=== PATIENT | female | born 1940 | race Caucasian/White ===

== ENCOUNTER → 2016-11-08 | Outpatient (CLI) | payer BC ==
[~2016-11-08] MED LIST: ASPCH81X PO; ATOR10TA88 PO; BIOT1CAP8 PO; CHOL1000 PO; COEN100C7 PO; CYAN100020 PO; DOCU1CAP78 PO; LOSA100T66 PO; METO25TA3 PO; MULT-1016 PO; NTRGSL/4 SL; OMEG10007 PO; PSYL55.43 PO
--- NOTE | 2016-11-08 16:06 | DIAGNOSTIC IMAGING REPORT ---
CHEST 2 VIEWS ROUTINE CLINICAL HISTORY: COUGH dyspnea COMPARISON STUDY: 07/29/2008 FINDINGS: Prior median sternotomy. Lungs are clear. Diaphragms smooth. IMPRESSION: No acute process. Electronically signed by: Tanvir Valle M.D. 11/08/2016 4:04 PM Dictated Date/Time: 11/08/2016 4:02 PM
== END | disposition home or self-care (01) ==
LOC: C.RAD1850 15:51
PROVIDERS: ATTEND Family Medicine
DX: R05 Cough (principal); R09.89 Other specified symptoms and signs involving the circulatory and respiratory systems

== ENCOUNTER → 2017-01-01 | Outpatient (CLI) | payer BC ==
--- NOTE | 2017-01-01 16:17 | DIAGNOSTIC IMAGING REPORT ---
CHEST 2 VIEWS ROUTINE CLINICAL HISTORY: Cough COMPARISON STUDY: 11/08/2016 FINDINGS: There are postsurgical changes of midline sternotomy. The heart is normal in size. There is no failure. There is no focal pulmonary consolidation. There are no pleural effusions.[ IMPRESSION: No active disease in the chest. Electronically signed by: Sheng Ha M.D. 01/01/2017 4:16 PM Dictated Date/Time: 01/01/2017 4:15 PM
== END | disposition home or self-care (01) ==
LOC: C.RAD1850 16:03
PROVIDERS: ATTEND Family Medicine
DX: R05 Cough (principal)

== ENCOUNTER → 2017-06-03 | Outpatient (CLI) | payer BC ==
--- NOTE | 2017-06-03 12:02 | DIAGNOSTIC IMAGING REPORT ---
RIGHT HIP UNILATERAL 2 VIEWS CLINICAL HISTORY: RIGHT HIP PAIN Right COMPARISON STUDY: Right hip 06/23/2009. FINDINGS: Progressive cartilage space narrowing with jfhz-tl-[id number] articulation within the superior aspect of the right hip. There is associated subchondral sclerosis and subchondral cystic change within the right hip. This is consistent with severe osteoarthritis. There are small marginal osteophytes. No fracture or dislocation. The visualized pelvic bones are intact. IMPRESSION: Progression of the severe osteoarthritis within the right hip. No fractures. Electronically signed by: Jordan Madrigal M.D. 06/03/2017 12:01 PM Dictated Date/Time: 06/03/2017 11:49 AM
== END | disposition home or self-care (01) ==
LOC: C.RAD1850 11:27
PROVIDERS: ATTEND Family Medicine
DX: M25.551 Pain in right hip (principal)

== ENCOUNTER 2018-12-23 07:16 | Inpatient (IN) ==
--- NOTE | 2018-11-24 09:00 | PAT Medication Instructions ---
Medication Instructions Date of Service November 24, 2018 Home Medications aspirin [Aspirin Low Dose] 81 mg PO QAM biotin 1 mg PO DAILY cholecalciferol (vitamin D3) 5,000 unit PO QAM coenzyme Q10 [CoQ-10] 100 mg PO DAILY cyanocobalamin (vitamin B-12) 5,000 mcg SUBLINGUAL DAILY docusate sodium 100 mg PO BID ezetimibe [Zetia] 10 mg PO HS metoprolol succinate [Toprol XL] 12.5 mg PO HS nitroglycerin 1 dose SUBLINGUAL NEEDED omega 2-raq-qoa-fish oil [[place]-3] 1 cap PO DAILY potassium chloride 10 meq PO QAM rosuvastatin 5 mg PO HS spironolacton-hydrochlorothiaz 0.5 tab PO QAM yvbtqtkjhaqn-dhfo-vjoaq acid 1 tab PO WK Continue as directed nitroglycerin 1 dose SUBLINGUAL NEEDED vdunstnlifad-igpa-zczwc acid 1 tab PO WK ASK your prescriber and surgeon aspirin [Aspirin Low Dose] 81 mg PO QAM STOP taking 2 weeks before surgery biotin 1 mg PO DAILY coenzyme Q10 [CoQ-10] 100 mg PO DAILY omega 8-qcs-uyh-fish oil [[place]-3] 1 cap PO DAILY DO NOT take the morning of surgery cholecalciferol (vitamin D3) 5,000 unit PO QAM cyanocobalamin (vitamin B-12) 5,000 mcg SUBLINGUAL DAILY docusate sodium 100 mg PO BID potassium chloride 10 meq PO QAM spironolacton-hydrochlorothiaz 0.5 tab PO QAM Take morning of surgery NOTHING TO EAT OR DRINK AFTER MIDNIGHT Take evening before surgery docusate sodium 100 mg PO BID ezetimibe [Zetia] 10 mg PO HS metoprolol succinate [Toprol XL] 12.5 mg PO HS rosuvastatin 5 mg PO HS Other Notes If you have any questions please call us at [phone] or [phone] or [phone] or [phone]
--- NOTE | 2018-11-24 09:54 | Anesthesiology Consultation ---
Date of Service November 24, 2018 Assessment & Plan (1) Encounter for pre-operative examination: Chart Review Chart Review: Acceptable Risk for Surgery and Patient seen in Pre Admission Testing Consults Requested cardiac (Dr. Ryan (11/17/18)) Patient was seen by Dr. Ryan on 11/17/18. Dr. Ryan stated, "In light of her known history of coronary artery disease, will order a DSE for preoperative evaluation prior to her undergoing her right total hip arthroplasty." The stress echo was done 11/25 at 9:[address]am. Dr. Ryan then appended his note to say "Based on DSE results of 11/25/18 (no evidence of ischemia), this patient is an acceptable cardiac risk to undergo her planned surgical procedure." Teaching & Discussion Pre-Anesthesia Teaching/Discussion Notes: Instructed NPO after midnight before surgery, except medications with 15 cc of water. Medication instructions provided according to the PAT guidelines. History Surgery Operation Date: 12/23/18 10:40 Proposed Procedures p Right Total Hip Replacement - Amari Robertson MD Height/Weight Height: 5 ft 1 in Weight: 67.5 kg Allergies Allergy/AdvReac Type Severity Reaction Status Date / Time Penicillins Allergy Unknown A CHILD Verified 11/18/18 09:48 Medications Home Medications Medication Instructions Recorded Confirmed Last Taken aspirin [Aspirin Low Dose] 81 mg PO QAM 11/18/18 11/18/18 Unknown biotin 1 mg PO DAILY 11/18/18 11/18/18 Unknown cholecalciferol (vitamin D3) 5,000 unit PO QAM 11/18/18 11/24/18 Unknown [Vitamin D3] coenzyme Q10 [CoQ-10] 100 mg PO DAILY 11/18/18 11/18/18 Unknown cyanocobalamin (vitamin B-12) 5,000 mcg SUBLINGUAL DAILY 11/18/18 11/18/18 Unknown [Vitamin B-12] docusate sodium 100 mg PO BID 11/18/18 11/18/18 Unknown ezetimibe [Zetia] 10 mg PO HS 11/18/18 11/18/18 Unknown metoprolol succinate [Toprol XL] 12.5 mg PO HS 11/18/18 11/18/18 Unknown nitroglycerin 1 dose SUBLINGUAL UD PRN 11/18/18 11/18/18 Unknown omega 9-xgf-ett-fish oil [[place]-3] 1 cap PO DAILY 11/18/18 11/18/18 Unknown potassium chloride 10 meq PO QAM 11/18/18 11/18/18 Unknown rosuvastatin 5 mg PO HS 11/18/18 11/18/18 Unknown spironolacton-hydrochlorothiaz 0.5 tab PO QAM 11/18/18 11/18/18 Unknown llazzubimlof-duzt-metnc acid 1 tab PO WK 11/24/18 11/24/18 Unknown [Daily Multivitamin with Iron] Past Medical History Medical History CAD (coronary artery disease) Hyperlipidemia Hypertension Osteopenia Past Family History Family History Mother Family hx of colon cancer Past Surgical History Surgical History History of cardiac cath NO STENTS (PRIOR TO CABG 22 YEARS AGO) History of cataract surgery BILATERAL History of colonoscopy History of coronary artery bypass graft X2 VESSELS (22 YEARS AGO) History of dilatation and curettage History of hysterectomy VAGINAL Past Anesthesia History No Hx of Anesthesia Complications and No Family Hx of Anesthesia Complications History of PONV No (Not since they stopped using Ether.) Motion Sickness Screening History of Motion Sickness: No Social History Smoking Status: Never smoker Do You Dip or Chew Tobacco: No Hx Alcohol Use: No Hx Substance Use: No substance use type: does not use Exercise / Class Metabolic Activity II 4-5 Yardwork/Stairs/Walk up hill (Limited due to current pain. Can climb FOS. Denies CP or SOB. ) Review of Systems Patient denies chest pain, shortness of breath, dyspnea on exertion, reflux, cough, wheezing, palpitations. +joint pain (right hip, left shoulder) Physical Exam Vital Signs BP: 146/67 P: 86 R: 18 T: 98.1 SPO2: 98% on RA Constitutional anxious ENMT Thyromental Distance: < 3.5 Finger Breadths (3) Mallampati Class: II Partial on top and bottom Neck normal visual inspection and trachea midline; neck extension not limited Respiratory normal respiratory effort Auscultation: lungs clear to auscultation bilaterally Cardiovascular Rate/Rhythm: regular rate and regular rhythm Heart Sounds: no murmur Vessels: no carotid bruit Neurologic moves all extremities Psychiatric Orientation: alert and oriented x 3 Testing Electrocardiogram Date: 11/24/18 Findings: + SB @ (57) When compared with ECG of 08/12/96, nonspecific T wave abnormality, improved in anterior leads and QT has shortened. Chest X-Ray Date: 11/24/18 Findings: + NAD FINDINGS: There are median sternotomy wires and clips from bypass grafting. Mild elevation/eventration of the right hemidiaphragm is unchanged. There is no pneumothorax or evidence for pulmonary edema. There is no consolidation to suggest pneumonia. Cardiomediastinal silhouette is stable. IMPRESSION: No acute cardiopulmonary findings. Stress Test Date: 11/25/18 Type: DSE Findings: + WNL and + achieved max HR; no CP and no ischemia Resting EF: 60% Resting LV Function: normal Resting RWMA: + none Valvular Disease: MR (mild) Negative dobutamine stress echo and ECG for myocardial ischemia at 102% MPHR. Resting echo with normal biventricular systolic function. Grade I left ventricular diastolic dysfunction. Normal chamber dimensions. Trace aortic regurgitation. Mild to moderate tricuspid regurgitation. Mildly elevated estimated right ventricular systolic pressure. Laboratory Results 11/24/18 10:24 11/24/18 10:24 Blood Type O Positive 11/24/18 10:24 Antibody Screen NEGATIVE 11/24/18 10:24 PT 9.9 Seconds (9.0-12.0) 11/24/18 10:24 INR 1.0 (0.9-1.1) 11/24/18 10:24 APTT 25.5 Seconds (21.0-31.0) 11/24/18 10:24
[2018-11-24 11:29] LABS: Basophils # (auto) 0.03 K/uL (0-0.2); Basophils % (auto) 0.6 %; Eosinophils # (auto) 0.16 K/uL (0-0.5); Eosinophils % (auto) 3.3 %; Hematocrit (blood only) 38.2 % (37-47); Immature Granulocytes # (auto) 0.02 K/uL (0.00-0.02); Immature Granulocytes % (auto) 0.4 %; Lymphocytes # (auto) 1.41 K/uL (1.2-3.4); Mean Corpuscular Volume 88.2 fL (80-100); Mean Platelet Volume 10.2 fL (7.4-10.4); Monocytes # (auto) 0.53 K/uL (0.11-0.59); Monocytes % (auto) 10.9 %; Neutrophils # (auto) 2.72 K/uL (1.4-6.5); Neutrophils % (auto) 55.8 %; Platelet Count 225 K/uL (130-400); RDW Coefficient of Variation 15.3 % (11.5-14.5); RDW Standard Deviation 49.9 fL (36.4-46.3); Red Blood Count 4.33 M/uL (4.2-5.4); White Blood Count 4.87 K/uL (4.8-10.8)
--- NOTE | 2018-11-24 11:35 | XRay Report ---
XR chest Pre-admission PA/Lat CLINICAL HISTORY: Preoperative evaluation. COMPARISON STUDY: Chest radiograph January 01, 2017. FINDINGS: There are median sternotomy wires and clips from bypass grafting. Mild elevation/eventratio n of the right hemidiaphragm is unchanged. There is no pneumothorax or evidence for pulmonary edema. There is no consolidation to suggest pneumonia. Cardiomediastinal silhouette is stable. IMPRESSION: No acute cardiopulmonary findings. Electronically signed by: Ross Call M.D. 11/24/2018 11:33 AM
[2018-11-24 11:38] LABS: Partial Thromboplastin Time 25.5 Seconds (21.0-31.0); Prothrombin Time 9.9 Seconds (9.0-12.0)
[2018-11-24 12:27] LABS: BUN Creatinine Ratio 14.3 (10-20); Calcium 8.7 mg/dl (8.5-10.1); Creatinine Clr Calc Pharmacy 46.6 ml/min; Est GFR (African American) 74.5; Est GFR (Non-African American) 64.3; Potassium 4.2 mmol/L (3.5-5.1)
--- NOTE | 2018-12-19 20:46 | History and Physical Report ---
DATE OF ADMISSION: 12/23/2018 CHIEF COMPLAINT: Right hip pain. HISTORY OF PRESENT ILLNESS: The patient is a 78-year-old female who presents for surgical treatment of her right hip. She has a 1-year history of increase in right pain and discomfort that has gotten progressively worse over time. She went through a course of therapy which seemed to help initially and then things have gotten worse. She was initially treated at [facility] and then referred here. She describes mostly groin, buttock, and some thigh pain radiating down to her knee, but no further. She limps with every step. She is having difficulty walking more than a couple of blocks. She has difficulty getting through the grocery store. She has nighttime pain. She would like to proceed with surgical treatment. PAST MEDICAL HISTORY: 1. Hypertension. 2. Coronary artery disease, status post bypass grafting 20 years ago at [facility] followed by Dr. Ryan. 3. Hand numbness. 4. Osteoarthritis. PAST SURGICAL HISTORY: Include cardiac bypass surgery in 1995 without symptoms followed by Dr. Ryan. ALLERGIES: ATORVASTATIN, CLARITIN-D, CODEINE, DOXYCYCLINE, HYDROCHLOROTHIAZIDE, NIASPAN, SIMVASTATIN. CURRENT MEDICINES: Include, 1. Aspirin 81 mg. 2. Biotin. 3. Calcium citrate. 4. Carbamide peroxide solution. 5. Cholecalciferol. 6. Vitamin B12. 7. Ezetimibe 10 mg a day. 8. Hydrochlorothiazide/spironolactone half tablet a day. 9. Topical hydrocortisone. 10. Metoprolol 25 mg half tablet once a day. 11. Metronidazole topical cream. 12. Multivitamin with iron. 13. Nitroglycerin. 14. [place]-3. 15. Potassium chloride once a day. 16. Psyllium. 17. Crestor 5 mg a day. 18. Various topical meds. SOCIAL HISTORY: A 78-year-old female. Lives in [place]. She is . Rare alcohol intake. Three children. Does not smoke. FAMILY HISTORY: Significant for breast cancer. REVIEW OF SYSTEMS: Significant for previous heart history followed by Dr. Ryan. She denies any current chest pain or shortness of breath. No history of DVT or PE. No known bleeding problems. PHYSICAL EXAMINATION: GENERAL: Shows a pleasant elderly female. She comes in with her . HEENT: Benign. NECK: Supple. No lymphadenopathy. LUNGS: Clear to auscultation. HEART: Regular rate and rhythm. ABDOMEN: Soft, nontender, nondistended. EXTREMITIES: Grossly neurovascularly intact except as follows: Examination of the right hip and leg reveals the patient walks with a markedly antalgic gait. Leg lengths are pretty equal. She has pain and stiffness with any type of hip motion, particularly internal rotation. She can internally rotate to about neutral at best. External rotation to 20 degrees. Negative straight leg raise. X-RAYS: X-rays of the right hip reveal advanced right hip DJD. She has complete loss of superior joint space. She has got flattening of her femoral head and cystic change of the femoral head and acetabulum. ASSESSMENT: A 78-year-old female with a 1-year history of progressively increasing right hip pain and discomfort, unresponsive to conservative care. It is affecting her quality of life. She would like to have her right hip fixed. PLAN: We will take her to the operating room and do a right total hip replacement. The risks and benefits of this procedure were explained to the patient including, but not limited to DVT, PE, , infection, neurological injury, vascular injury, bleeding problem, pain, limited range of motion, stiffness, failure to relieve her symptoms, incomplete relief of symptoms, need for further surgery in the future, fracture, leg length inequality, nerve palsy, etc. The patient understands and desires to proceed. Informed consent was obtained. We did talk to her about taking her metoprolol the morning of surgery and stopping all supplements 10 days before. She is planning to be discharged to home with her 's assistance and home care. REYNA
[~2018-12-23 07:16] MED LIST changes: +ACETAMINOPHEN 500 MG TAB PO SCH; -ASPCH81X PO; -ATOR10TA88 PO; -BIOT1CAP8 PO; +BUPIVACAINE 0.5 % 5 MG/1 ML PF 10ML VIAL ONE; +CEFAZOLIN - ALLERGY NOTED TO ORDERED MEDICATION SCH; +CEFAZOLIN 2000MG 2,000 MG/15 ML SYR IV SCH; -CHOL1000 PO; -COEN100C7 PO; -CYAN100020 PO; -DOCU1CAP78 PO; +FAMOTIDINE 20 MG TAB PO SCH; +GABAPENTIN 300 MG PO SCH; -LOSA100T66 PO; +LR 500ML BOLUS, THEN 15ML/HR IV SCH; +LR 60ML/HR IV SCH; -METO25TA3 PO; +METOCLOPRAMIDE HCL 10 MG TABLET PO SCH; -MULT-1016 PO; -NTRGSL/4 SL; -OMEG10007 PO; -PSYL55.43 PO; +TRANEXAMIC ACID 1,000 MG **IV Pre-op IV SCH
[2018-12-23] MEDS ORDERED: HYDROmorphone INJ 1 MG/ML SYRINGE IV PRN (07:37)
[2018-12-23] MEDS ORDERED: LABETALOL HCL IV 5 MG/ML 20ML IV PRN (07:37)
[2018-12-23] MEDS ORDERED: MEPERIDINE HCL 25 MG/ML CARP IV PRN (07:37)
[2018-12-23] MEDS ORDERED: PHENYLEPHRINE 100MCG/ML 5ML SYR IV PRN (07:37)
[2018-12-23] MEDS ORDERED: ePHEDrine sulfate 50 MG/ML AMP IV PRN (07:37)
[2018-12-23] MEDS ORDERED: fentaNYL citrate 100 MCG/2 ML VIAL IV PRN (07:37)
[2018-12-23] MEDS ORDERED: ATROPINE SULFATE 0.1 MG/ML 10ML SYR IV PRN (07:37)
[2018-12-23] MEDS ORDERED: ONDANSETRON INJ 2 MG/ML 2 ML VIAL IV PRN ×2 (07:37→11:33)
[2018-12-23] MEDS ORDERED: MIDAZOLAM HCL 1 MG/ML 2ML VIAL ONE (07:52)
[2018-12-23] MEDS ORDERED: fentaNYL citrate 100 MCG/2 ML VIAL ONE (07:52)
--- NOTE | 2018-12-23 08:40 | History & Physical Bridge Note ---
Date of Service December 23, 2018 History & Physical Bridge Note I have examined the patient, reviewed the History & Physical and in the interval since the performance of the History & Physical I have noted the following changes of clinical significance: no changes noted
[2018-12-23] MEDS ORDERED: MoRPHine SULFATE PF 1 MG/ML 10 ML AMP/VIAL ONE (08:41)
[2018-12-23] MEDS ORDERED: BACITRACIN INJ 50,000 UNIT VIAL ONE (08:42)
[2018-12-23] MEDS ORDERED: BUPIVACAINE/EPINEPHRINE 0.5% MPF 1:200,000 30 ML VIAL ONE (08:42)
[2018-12-23] MEDS ORDERED: ePHEDrine sulfate 50 MG/ML SYR ONE (09:14)
[2018-12-23] MEDS ORDERED: LIDOCAINE HCL 2% 2 ML VIAL/AMP(20MG/ML) INFIL ONE (09:14)
[2018-12-23] MEDS ORDERED: PROPOFOL IV EMULSION 10 MG/ML 20 ML VIAL IV ONE (09:14)
--- NOTE | 2018-12-23 10:21 | Post Operative Brief Note ---
Immediate Post Op Note v1 Date of Surgery December 23, 2018 Pre & Post Diagnosis Operation Date: 12/23/18 08:50 Pre-Op Diagnosis: Right Hip Degenerative Joint Disease Post-Op Diagnosis: Right Hip Degenerative Joint Disease Procedure Operation Date: 12/23/18 08:50 Actual Procedures p Right Total Hip Arthroplasty, Uncemented(Right) - Amari Robertson MD Surgeon Amari Robertson MD Screening Unit Registered Nurse Jayjay, PAC Estimated Blood Loss 300 Findings Consistent with Post-Op Diagnosis Fluids 1500 cc Specimens Right Femoral Head Drains Sofia Catheter Anesthesia Type Spinal MAC Complications none Disposition Accompanied Patient To Recovery: Yes Disposition: Recovery Room
--- NOTE | 2018-12-23 10:43 | Anesthesiology Progress Note ---
Date of Service December 23, 2018 Anesthesia Post Procedure Vital Signs Vital Signs: Temp Pulse Pulse Resp BP Pulse Ox 12/23/18 10:30 74 12 130/56 L 98 12/23/18 10:20 36.5 C 79 13 111/55 L 100 12/23/18 07:55 36.7 C 74 20 162/95 H 93 Pain Intensity Right Hip: Pain Intensity: 0 Notes Mental Status: alert / awake / arousable Patient Amnestic to Procedure: Yes Nausea / Vomiting: adequately controlled Pain: adequately controlled Airway Patency, RR, SpO2: stable & adequate BP & HR: stable & adequate Hydration State: stable & adequate Neuraxial Anesthesia: was administered and sensory block is resolving Anesthetic Complications: no major complications apparent and Pt Satisfied with anesthetic care
--- NOTE | 2018-12-23 11:16 | XRay Report ---
XR hip 1V RT w pelvis CLINICAL HISTORY: 78 years-old Female presenting with IN PACU - A/P PELVIS and LATERAL HIP . TECHNIQUE: Single frontal view of the pelvis and crosstable lateral view of the right hip were obtain ed. COMPARISON: 06/03/2017. FINDINGS: There has been interval total right hip arthroplasty. Expected intra-articular and soft tissue emphys damaris. Overlying skin hannah. No malalignment. No periprosthetic fracture. Remaining visualized portio n of the pelvis intact. Left hip congruent. No advanced degenerative changes of the left hip. IMPRESSION: Expected postsurgical appearance status post total right hip arthroplasty. Electronically signed by: Eran Campbell M.D. 12/23/2018 11:15 AM
[2018-12-23] MEDS ORDERED: BISACODYL 10 MG SUPP PR PRN (11:33)
[2018-12-23] MEDS ORDERED: NITROGLYCERIN SL 0.4 MG/TAB TAB SL PRN (11:33)
[2018-12-23] MEDS ORDERED: HYDROmorphone INJ 0.5 MG/0.5 ML SYR IV PRN (11:33)
[2018-12-23] MEDS ORDERED: METOCLOPRAMIDE HCL INJ 5 MG/ML 2 ML VIAL IV PRN (11:33)
[2018-12-23] MEDS ORDERED: NALOXONE HCL 0.4 MG/1 ML VIAL/CARP IV PRN (11:33)
[2018-12-23] MEDS ORDERED: MAGNESIUM HYDROXIDE SUSP 30 ML UDC PO PRN (11:33)
[2018-12-23] MEDS ORDERED: ALUMINUM/MAGNESIUM SUSP 30 ML UDC PO PRN (11:33)
[2018-12-23] MEDS: TRAMADOL HCL 50 MG TABLET PO PRN (12:56)
--- NOTE | 2018-12-23 13:26 | Operative Report ---
DATE OF OPERATION: 12/23/2018 SURGEON: Amari Robertson MD. CRANE HOIST OR LIFT OPERATOR: ANEL Andrew. PREOPERATIVE DIAGNOSIS: Right hip degenerative joint disease. POSTOPERATIVE DIAGNOSIS: Right hip degenerative joint disease. PROCEDURE PERFORMED: Right uncemented ceramic on highly cross-linked polyethylene total hip arthroplasty. COMPLICATIONS: None. ESTIMATED BLOOD LOSS: 200 mL. FLUID REPLACEMENT: 1500 mL crystalloid fluid replacement. ANESTHESIA: Spinal. DRAINS: None. SPECIMENS: Right femoral head sent for pathology. OPERATIVE INDICATIONS: The patient is a 78-year-old female who has had several year history of increasing right hip pain and discomfort that has gotten significantly worse over the past year. She failed all conservative care. X-rays revealed advanced right hip DJD. She elected to proceed with surgical treatment. OPERATIVE FINDINGS: Revealed advanced right hip DJD. She had grade 4 ozpk-cf-dmxw disease of the femoral head and acetabulum. She had pretty significant synovitis of the hip joint capsule as well. No major osteophyte formation. She did have a significant joint effusion as well. OPERATIVE IMPLANTS: Operative implants consisted of: 1. Biomet G7 size 52 mm acetabular shell. 2. A 6.5 cancellous acetabular screws, 1 at 35 mm length and 1 at 20 mm length. 3. An apex hole eliminator. 4. Highly cross-linked polyethylene liner with a 52 mm outer diameter and 36 mm inner diameter. 5. DePuy Corail size 10 KLA femoral stem. 6. A +1.5/36 mm ceramic articular ball. OPERATIVE PROCEDURE: The patient was taken to the Operating Room, identified and placed on the operating table in supine position. All contact areas appropriately padded. IV antibiotics followed by Anesthesia team. A spinal anesthetic had been implemented in the holding area. Sofia catheter was placed in sterile fashion with the patient and placed in the left lateral decubitus position. An axillary roll was placed. Stlberg hip positioner was used for positioning. The right leg and hip were then prepped and draped in the usual sterile fashion. A posterolateral approach to the right hip was then performed through a curvilinear incision centered over the greater trochanter. Sharp dissection was carried through subcutaneous tissues down to the level of the IT band and gluteal fascia. The IT band and gluteal fascia were then incised longitudinally in line with skin incision. The underlying greater trochanteric bursa was excised. The piriformis and external rotators were tagged and taken off the posterior aspect of the hip joint capsule. Great care was taken throughout the procedure to protect the sciatic nerve at all times. Posterior capsulotomy was then performed leaving a large flap for later repair. Hip was internally rotated and dislocated. Femoral neck osteotomy cut was made with the final cut about 11 mm above the lesser trochanter. Femoral head was removed and sent for pathology. The femur was retracted anteriorly. Attention was then drawn to the acetabulum. The acetabular labrum was excised. The pulvinar fat was excised. Sequential reaming of the acetabulum was then performed beginning with size 43 and progressing up to 51. I did use a 52 reamer just to enter the acetabulum as it was a little bit narrow on the entrance. A 52 mm Biomet G7 acetabular shell was then placed in about 40 degrees of lateral opening and 20 degrees of anteversion. It was fixed with two 6.5 cancellous acetabular screws. A trial liner was placed. Attention was then drawn to the femur. The proximal femur was entered with a cookie cutter followed by canal finder. I then broached beginning with a size 8 and progressing up to 10. We got pretty good fit of the tendon. I was afraid to broach any bigger due to her osteopenic bone. We had good rotational stability. The calcar reamer was used to smoothen off the calcar. I then trialed the hip and the +1 articular ball seemed to recreate soft tissue tension appropriate and leg lengths appropriate. The hip was fully stable in full extension and external rotation, flexion to 90 degrees, internal rotation to 60+ degrees. We elected to place these implants. All trial implants were removed. An apex hole eliminator was placed. Highly cross-linked polyethylene liner was placed. A DePuy Corail size 10 KLA femoral stem was impacted in position. A +1.5/36 mm ceramic articular ball was placed. Hip was located once again found to be stable. Attention was then drawn toward closing. The wound was irrigated with copious amounts of pulsatile lavage solution. I did inject locally with 60 mL of 0.5% Marcaine with epinephrine. The posterior capsule and external rotators were repaired through drill holes in the posterior trochanter with #2 Ti-Cron suture. The IT band and gluteal fascia were then closed with #1 PDS suture in running fashion. The subcutaneous tissues were then closed with 2 layers, the deep layer #1 Vicryl sutures and subcutaneous tissue with 2-0 Dexon suture in a buried interrupted fashion. Skin was closed with skin hannah. Leg was then cleaned, dried and a sterile dressing with Xeroform, 4 x 4's, ABD pad and foam tape was applied. The patient then transferred to the Recovery Room in stable condition. The patient tolerated the procedure well with no complication. Bone and sponge counts were correct at the end of the operation. I attest to the content of the Intraoperative Record and any orders documented therein. Any exception s are noted below.
[2018-12-23] MEDS: KETOROLAC TROMETHAMINE 15 MG/ML VIAL IV SCH ×2 (14:11→20:47)
[2018-12-23] MEDS: SODIUM CHLORIDE 0.9% 1000ML 1,000 ML IV SCH (15:59)
[2018-12-23] MEDS ORDERED: TRANEXAMIC ACID 1,000 MG in 0.9 % SODIUM CHLORIDE 100 ML IV SCH (16:00)
[2018-12-23] MEDS: ACETAMINOPHEN 500 MG TAB PO SCH ×2 (16:14→22:13)
[2018-12-23] MEDS: CEFAZOLIN 1000MG 1,000 MG/7.5 ML SYR IV SCH (16:14)
[2018-12-23] MEDS: FERROUS GLUCONATE 324 MG TAB PO SCH (18:10)
[2018-12-23] MEDS: ASCORBIC ACID 500 MG TAB PO SCH (18:10)
[2018-12-23] MEDS: EZETIMIBE 10 MG TABLET PO SCH (20:42)
[2018-12-23] MEDS: METOPROLOL SUCC 25MG EXT REL TAB PO SCH (20:43)
[2018-12-23] MEDS: ASPIRIN 81 MG ECTAB PO SCH (20:45)
[2018-12-23] MEDS: DOCUSATE SODIUM 100 MG CAP PO SCH (20:46)
[2018-12-23] MEDS: SENNA 8.6 MG TAB PO SCH (20:46)
[2018-12-23] MEDS: ROSUVASTATIN CALCIUM 5 MG TAB PO SCH (20:50)
[2018-12-23] MEDS ORDERED: DOCUSATE SODIUM 100 MG CAP PO SCH (21:00)
[2018-12-24] MEDS: KETOROLAC TROMETHAMINE 15 MG/ML VIAL IV SCH ×4 (01:02→20:47)
[2018-12-24] MEDS: CEFAZOLIN 1000MG 1,000 MG/7.5 ML SYR IV SCH (01:02)
[2018-12-24] MEDS: SODIUM CHLORIDE 0.9% 1000ML 1,000 ML IV SCH (01:03)
[2018-12-24] MEDS: ACETAMINOPHEN 500 MG TAB PO SCH ×3 (05:25→22:05)
[2018-12-24 06:46] LABS: Basophils # (auto) 0.02 K/uL (0-0.2); Basophils % (auto) 0.4 %; Eosinophils # (auto) 0.18 K/uL (0-0.5); Eosinophils % (auto) 3.8 %; Hematocrit (blood only) 33.9 % (37-47); Hemoglobin 11.4 g/dL (12.0-16.0); Immature Granulocytes # (auto) 0.01 K/uL (0.00-0.02); Immature Granulocytes % (auto) 0.2 %; Lymphocytes # (auto) 0.84 K/uL (1.2-3.4); Lymphocytes % (auto) 17.9 %; Mean Corpuscular Hgb Conc 33.6 g/dL (32-36); Mean Corpuscular Volume 89.2 fL (80-100); Mean Platelet Volume 9.3 fL (7.4-10.4); Monocytes # (auto) 0.53 K/uL (0.11-0.59); Monocytes % (auto) 11.3 %; Neutrophils # (auto) 3.12 K/uL (1.4-6.5); Neutrophils % (auto) 66.4 %; Platelet Count 175 K/uL (130-400); RDW Standard Deviation 48.7 fL (36.4-46.3)
[2018-12-24 07:16] LABS: BUN Creatinine Ratio 9.6 (10-20); Creatinine Clr Calc Pharmacy 53.2 ml/min; Est GFR (African American) 87.9; Est GFR (Non-African American) 75.8; Potassium 3.8 mmol/L (3.5-5.1)
[2018-12-24] MEDS ORDERED: NON-FORMULARY MEDICATION (Coenzyme Q10 [Coq-10] 100 MG) PO SCH (09:00)
[2018-12-24] MEDS ORDERED: NON-FORMULARY MEDICATION (Biotin [Biotin] 1 MG) PO SCH (09:00)
[2018-12-24] MEDS: DOCUSATE SODIUM 100 MG CAP PO SCH ×2 (09:49→20:47)
[2018-12-24] MEDS: MULTIVITAMIN TAB PO SCH (09:49)
[2018-12-24] MEDS: CHOLECALCIFEROL 1,000 UNITS TAB PO SCH (09:49)
[2018-12-24] MEDS: POTASSIUM CHLORIDE 10 MEQ TABCR PO SCH (09:49)
[2018-12-24] MEDS: CYANOCOBALAMIN (VITAMIN B-12) 2,500 MCG TAB.SUBL SL SCH (09:50)
[2018-12-24] MEDS: ASCORBIC ACID 500 MG TAB PO SCH ×2 (09:50→16:47)
[2018-12-24] MEDS: FERROUS GLUCONATE 324 MG TAB PO SCH ×2 (09:50→16:47)
[2018-12-24] MEDS: ASPIRIN 81 MG ECTAB PO SCH ×2 (09:50→20:46)
[2018-12-24] MEDS: SPIRONOLACTONE/HCTZ 25-25 PO SCH (09:50)
--- NOTE | 2018-12-24 10:20 | Anesthesiology Progress Note ---
Date of Service December 24, 2018 Anesthesia Post Procedure Vital Signs Vital Signs: Temp Pulse Pulse Resp BP Pulse Ox 12/24/18 07:13 36.8 C 60 18 130/70 98 12/24/18 03:55 36.9 C 70 16 124/68 97 12/23/18 23:20 36.4 C L 64 16 119/61 97 12/23/18 19:43 36.6 C 66 18 135/64 100 12/23/18 15:01 36.3 C L 66 18 137/63 97 12/23/18 14:16 36.2 C L 64 16 147/65 H 96 12/23/18 14:10 63 18 124/73 97 12/23/18 13:18 64 18 138/69 95 12/23/18 12:10 66 18 138/69 99 12/23/18 11:40 36.3 C L 71 16 151/69 H 96 12/23/18 11:27 36.4 C L 88 15 138/65 99 12/23/18 11:00 73 18 138/60 98 12/23/18 10:50 73 12 129/60 98 12/23/18 10:40 37.0 C 74 14 128/59 L 97 12/23/18 10:30 74 12 130/56 L 98 Pain Intensity Right Hip: Pain Intensity: 3 Notes Mental Status: alert / awake / arousable Nausea / Vomiting: adequately controlled Pain: adequately controlled Airway Patency, RR, SpO2: stable & adequate BP & HR: stable & adequate Hydration State: stable & adequate Neuraxial Anesthesia: was administered and sensory block resolved Anesthetic Complications: no major complications apparent and Pt Satisfied with anesthetic care
--- NOTE | 2018-12-24 15:35 | Progress Note ---
DATE: 12/24/2018 SUBJECTIVE: 78-year-old white female postop day 1 from a right hip replacement. She is doing pretty well. Pain is controlled. Denies any chest pain or shortness of breath. Not feeling dizzy or lightheaded. OBJECTIVE: VITAL SIGNS: Temperature 36.5. Vital signs stable. PHYSICAL EXAMINATION: GENERAL: Pleasant elderly female. She is sitting up in her bedside chair, looks pretty comfortable. LUNGS: Clear to auscultation. HEART: Regular rate and rhythm. ABDOMEN: Soft, nontender, nondistended. EXTREMITIES: Grossly neurovascularly intact except as follows. Examination of the right lower extremity reveals the dressing to be clean, dry and intact. Leg lengths were equal. Thigh is soft and supple. Hip is located. She is neurologically intact. She can dorsiflex and plantarflex her foot appropriately. LABORATORY DATA: Hemoglobin 11.4. Hematocrit 33.9. Electrolytes are stable. ASSESSMENT: 78-year-old white female postop day 1 from right hip replacement, doing pretty well. Pain is controlled. Hip is located. She is neurologically intact. PLAN: 1. DVT prophylaxis including thigh-high TEDs, SCDs, and aspirin twice a day. 2. PT/OT. Weight bear as tolerated. Right total hip protocol. 3. Pain control, doing well with current pain regimen. 4. Disposition: Plan to discharge to home with some home health once adequately recovered.
[2018-12-24] MEDS: TRAMADOL HCL 50 MG TABLET PO PRN (16:45)
[2018-12-24] MEDS: ROSUVASTATIN CALCIUM 5 MG TAB PO SCH (20:45)
[2018-12-24] MEDS: SENNA 8.6 MG TAB PO SCH (20:46)
[2018-12-24] MEDS: EZETIMIBE 10 MG TABLET PO SCH (20:48)
[2018-12-24] MEDS: METOPROLOL SUCC 25MG EXT REL TAB PO SCH (20:48)
[2018-12-25] MEDS: KETOROLAC TROMETHAMINE 15 MG/ML VIAL IV SCH ×2 (02:18→08:09)
[2018-12-25] MEDS: ACETAMINOPHEN 500 MG TAB PO SCH ×2 (05:57→13:09)
--- NOTE | 2018-12-25 08:00 | Progress Note ---
DATE: 12/25/2018 SUBJECTIVE: A 78-year-old female postop day 2 from right hip replacement. She is doing well. Pain has been very well controlled. Got a good night's sleep. No chest pain or shortness of breath. Not feeling dizzy or lightheaded. OBJECTIVE: VITAL SIGNS: Temperature 37.0. Vital signs stable. PHYSICAL EXAMINATION: GENERAL: Reveals a pleasant elderly female. She is lying in bed and looks comfortable. EXTREMITIES: Examination of the right hip reveals the dressing to be clean, dry and intact. Thigh is soft and supple. There is no drainage. Hip is located. She is neurologically intact. ASSESSMENT: A 78-year-old female postop day 2 from right hip replacement, doing well. Pain is controlled. Hip is located. PLAN: 1. DVT prophylaxis including thigh-high TEDs, SCDs, and aspirin twice a day. 2. PT/OT. Weight bear as tolerated. Right total hip protocol. 3. Pain control, doing well with current pain regimen. 4. Disposition: Plan to discharge to home with some home health later today.
[2018-12-25] MEDS: CHOLECALCIFEROL 1,000 UNITS TAB PO SCH (08:10)
[2018-12-25] MEDS: MULTIVITAMIN TAB PO SCH (08:10)
[2018-12-25] MEDS: POTASSIUM CHLORIDE 10 MEQ TABCR PO SCH (08:10)
[2018-12-25] MEDS: DOCUSATE SODIUM 100 MG CAP PO SCH (08:10)
[2018-12-25] MEDS: FERROUS GLUCONATE 324 MG TAB PO SCH (08:10)
[2018-12-25] MEDS: SPIRONOLACTONE/HCTZ 25-25 PO SCH (08:11)
[2018-12-25] MEDS: CYANOCOBALAMIN (VITAMIN B-12) 2,500 MCG TAB.SUBL SL SCH (08:11)
[2018-12-25] MEDS: ASPIRIN 81 MG ECTAB PO SCH (08:11)
[2018-12-25] MEDS: ASCORBIC ACID 500 MG TAB PO SCH (08:12)
[2018-12-25] MEDS: TRAMADOL HCL 50 MG TABLET PO PRN (13:09)
--- NOTE | 2018-12-27 03:53 | Discharge Summary ---
ADMITTING PHYSICIAN AND SURGEON: Amari Robertson MD ADMITTING DIAGNOSIS: Right hip degenerative joint disease. SURGERY PERFORMED: Right total hip arthroplasty. SECONDARY DIAGNOSES: Hypertension, coronary artery disease, hand numbness, osteoarthritis. CONSULTATIONS: None obtained. HISTORY AND PHYSICAL EXAMINATION: Well documented in the patient's chart. HOSPITAL COURSE: The patient was admitted on 12/23/2018, underwent total hip arthroplasty, tolerated the procedure well. There were no complications. She was transferred to the PACU postoperatively and later to the orthopedic floor for further care. She was given Ancef for antibiotic prophylaxis, RADHA stockings, SCDs, and aspirin for DVT prophylaxis. Hemoglobin, hematocrit, and vital signs were monitored during hospital stay and remained stable. She had some postoperative anemia, did not require any blood transfusions. There were no complications. By postoperative day 2, she was tolerating a regular diet. Pain was controlled with oral pain medicine. She was participating in physical therapy. On postop day 2, she was discharged home, set up with home health services. She was given printed discharge instructions including new prescriptions for Extra Strength Tylenol, aspirin and tramadol. Continue her home medications with the exception of her home dose of aspirin which was changed. Continue physical therapy, weightbearing as tolerated, RADHA stockings, total hip precautions. Follow up in approximately 2 weeks postoperatively or sooner if there are any problems or concerns.
[2018-12-28] MEDS ORDERED: CEROVITE ADV FORMULA TAB PO SCH (09:00)
== END 2018-12-25 13:30 | disposition home health service (06) | DRG 470 ==
LOC: ASU 07:16 → 3E 11:22

== ENCOUNTER 2022-07-30 01:06 | Inpatient (IN) ==
[2022-07-30] MEDS ORDERED: fentaNYL citrate 100 MCG/2 ML VIAL ONE (01:16)
[2022-07-30] MEDS ORDERED: niCARdipine HCL INJ 2.5 MG/ML 10 ML AMP ONE (01:16)
[2022-07-30] MEDS ORDERED: HEPARIN (PORCINE) 1000 UNIT/ML 10 ML (CATH LAB USE ONLY) ONE (01:16)
[2022-07-30] MEDS ORDERED: MIDAZOLAM HCL 1 MG/ML 2ML VIAL ONE ×2 (01:16→02:58)
[2022-07-30] MEDS ORDERED: NITROGLYCERIN/D5W 100MCG/ML 20ML SYR ONE (01:17)
[2022-07-30 01:23] LABS: Basophils # (auto) 0.05 K/uL (0-0.2); Basophils % (auto) 0.9 %; Eosinophils # (auto) 0.13 K/uL (0-0.50); Eosinophils % (auto) 2.3 %; Hemoglobin 12.8 g/dl (12.0-16.0); Immature Granulocytes # (auto) 0.01 K/uL (0.00-0.02); Immature Granulocytes % (auto) 0.2 %; Lymphocytes # (auto) 2.06 K/uL (1.2-3.4); Lymphocytes % (auto) 37.2 %; Mean Corpuscular Hemoglobin 29.4 pg (25.0-34.0); Mean Corpuscular Hgb Conc 33.7 g/dL (32.0-36.0); Mean Corpuscular Volume 87.4 fL (80.0-100.0); Mean Platelet Volume 10.7 fL (9.4-12.3); Monocytes # (auto) 0.42 K/uL (0.24-0.82); Monocytes % (auto) 7.6 %; Neutrophils # (auto) 2.87 K/uL (1.4-6.5); Neutrophils % (auto) 51.8 %; Platelet Count 184 K/uL (130-400); RDW Coefficient of Variation 15.2 % (11.5-14.5); RDW Standard Deviation 48.7 fL (36.4-46.3); Red Blood Count 4.35 M/uL (3.93-5.22); White Blood Count 5.54 K/ul (4.8-10.8)
[2022-07-30] MEDS ORDERED: ONDANSETRON INJ 2 MG/ML 2 ML VIAL ONE ×2 (01:23→02:07)
--- NOTE | 2022-07-30 01:30 | Emergency Department Note ---
History of Present Illness General Chief complaint: Heart Alert Source: patient, EMS, RN notes reviewed and old records reviewed Mode of arrival: EMS Limitations: no limitations History of Present Illness This patient is a 81-year-old female who comes in after having chest pain that was 5 out of 10. They called EMS EMS called me and I took medical command it was clear that her EKG was abnormal distant with a STEMI. She had acute ST seg ment elevations inferiorly and laterally as well as reciprocal changes. I called a heart alert well before the patient even got to the hospital to help expedite the care. Upon arrival the patient says her pain was feeling better but she is just felt weird. She did receive aspirin 324 prior to arrival she took 2 of her own nitroglycerin and they gave her 1 nitro prior to calling me. Given the concern for inferior CT I told him to not give any more nitro but rather fluids. The patient denies any allergies she has had a CABG in the past and is followed by Dr. Ryan. She feels mildly sweaty. No trauma or injury Home Medications Medication Instructions Recorded Confirmed Type biotin 1 mg capsule 1 mg PO DAILY 11/18/18 07/16/22 History cholecalciferol (vitamin D3) 125 5,000 unit PO QAM 11/18/18 07/16/22 History mcg (5,000 unit) tablet (Vitamin D3) coenzyme Q10 100 mg capsule 100 mg PO DAILY 11/18/18 07/16/22 History (CoQ-10) cyanocobalamin (vitamin B-12) 5,000 mcg sublingual DAILY 11/18/18 07/16/22 History 5,000 mcg/mL sublingual drops (Vitamin B-12) omega 3 350 mg-dha 235 mg-epa 90 1 cap PO DAILY 11/18/18 07/16/22 History mg-fish oil 597 mg capsule,delay rel ([place]-3) multivitamin-ferrous 1 tab PO WK 11/24/18 07/16/22 History fumarate-folic acid 18 mg-400 mcg tablet (Daily Multivitamin with Iron) alendronate 70 mg tablet 70 mg PO Q7D 12/30/19 07/16/22 History aspirin 81 mg tablet,delayed 81 mg PO DAILY 12/30/19 07/16/22 History release amoxicillin 500 mg tablet 2,000 mg PO ONCE #20 tabs 06/13/20 07/16/22 Rx spironolactone 25 0.5 tab PO QAM #45 tabs 07/04/20 07/16/22 Rx mg-hydrochlorothiazide 25 mg tablet nitroglycerin 0.4 mg sublingual 0.4 mg sublingual Q5M PRN chest 07/17/21 07/16/22 Rx tablet pain #25 tabs metoprolol succinate 25 mg 12.5 mg PO HS #45 tabs 12/18/21 07/16/22 Rx tablet,extended release 24 hr (Toprol XL) potassium chloride 10 mEq 10 meq PO BID #180 tabs 01/31/22 07/16/22 Rx tablet,extended release rosuvastatin 5 mg tablet 5 mg PO .COMPLEX #60 tabs 07/16/22 07/16/22 Rx ezetimibe 10 mg tablet 10 mg PO DAILY #90 tabs 07/25/22 Rx Allergies Allergy/AdvReac Type Severity Reaction Status Date / Time No Known Drug Allergies Allergy Verified 07/16/22 10:47 Past Med/Surg History Medical History (Updated 07/30/22 @ 01:30 by Roman Christian MD) Antiplatelet or antithrombotic long-term use CAD (coronary artery disease) Encounter for pre-operative examination Hyperlipidemia Hypertension Osteopenia Surgical History (Updated 07/30/22 @ 01:30 by Roman Christian MD) History of cardiac cath NO STENTS (PRIOR TO CABG 22 YEARS AGO) History of cataract surgery BILATERAL History of colonoscopy History of coronary artery bypass graft X2 VESSELS (22 YEARS AGO) History of dilatation and curettage History of hysterectomy VAGINAL History of lumpectomy of right breast History of right hip replacement Family History Mother Family hx of colon cancer Social History Smoking Status: Never smoker Second Hand Exposure: No; Hx Alcohol Use: No Hx Substance Use: No Preferred Language: Indonesian Communication Ability: Effective Manager Money Required: No Beliefs That Will Affect Care: None marital status: Current Living Situation: Spouse Feels Safe at Home: Yes Assistive Devices: Glasses and Walker Review of Systems A total of 10 systems reviewed and were otherwise negative Physical Exam Vital Signs Vital Signs - 24 hr 07/30/22 01:09 07/30/22 01:09 07/30/22 01:15 Temperature 37 C Temperature Source Oral Pulse Rate 43 L Pulse Rate [Finger] Respiratory Rate 16 Respiratory Effort / Characteristics Short of Breath SOB on Exertion Respiratory Depth Normal Blood Pressure 89/53 L Blood Pressure [Right Arm] Blood Pressure Mean 65 Blood Pressure Mean [Right Arm] Pulse Oximetry 98 96 Oxygen Delivery Method Nasal Cannula Room Air Oxygen Flow Rate 3 3 Sepsis Recent Fever Within 48 Hours No Sepsis New/Unexplained Change in Mental Status N/A Sepsis Action Taken by Nursing No Action Required 07/30/22 01:16 07/30/22 01:15 Temperature Temperature Source Pulse Rate Pulse Rate [Finger] 57 L Respiratory Rate 20 Respiratory Effort / Characteristics Respiratory Depth Blood Pressure Blood Pressure [Right Arm] 77/47 L Blood Pressure Mean Blood Pressure Mean [Right Arm] 57 Pulse Oximetry 96 97 Oxygen Delivery Method Nasal Cannula Nasal Cannula Oxygen Flow Rate 3 3 Sepsis Recent Fever Within 48 Hours Sepsis New/Unexplained Change in Mental Status Sepsis Action Taken by Nursing General: Well developed well nourished older female who appears mildly diaphoretic and pale but in no acute distress, breathing comfortably on room air. Normal speech HEENT: Normal cephalic atraumatic. Pupils are equal round and reactive to light. Sclera are anicteric. Extraocular movements are intact. Oropharynx is pink with moist mucous membranes. No swelling of the mouth lips or tongue. Neck: Supple with a midline trachea. No meningeal signs or stiffness, no JVD or bruits. No Stridor. Chest: Clear to auscultation bilaterally. No wheezes or rhonchi. No increased work of breathing. Heart: Regular rate and rhythm without murmurs or gallops. Abdomen: Soft nontender, nondistended without rebound guarding or rigidity. Extremities: No cyanosis clubbing or edema. No calf tenderness or assymetry Spine/Back. Non tender to palpation. No CVA tenderness Skin: Good turgor without rashes. Neurologic exam: Cranial nerves two through 12 are intact. Motor and sensation are intact and symmetrical throughout. Critical Care Time Critical Care Time: Yes Total Critical Care Time: 30 Due to the patient's acute STEMI, need for emergent rapid angioplasty, discussion with the paramedics cardiology and given ALS medical command as well as need for aggressive, timely care with IV fluids and meds, I have personally spent greater than 30 minutes of critical care time in the direct management of this patient. This includes bedside care, interpretation of diagnostic studies, and testing, discussion with consultants, patient, and family members, and other required patient management activities. This 30 minutes is in excess of all separately billable procedures. Medical Decision Making Differential Diagnosis Acute CT, arrhythmia, vasospasm, anemia, electrolyte or metabolic abnormality, aortic disease Medical Records Attestation: I reviewed the patient's medical records. Home Medications Current Medication List: was personally reviewed by me Laboratory Data Attestation: I reviewed the patient's lab results. Result diagrams: 07/30/22 01:12 07/30/22 01:12 Lab Results 07/30/22 Range/Units 01:12 WBC 5.54 (4.8-10.8) K/ul RBC 4.35 (3.93-5.22) M/uL Hgb 12.8 (12.0-16.0) g/dl Hct 38.0 (34.1-44.9) % MCV 87.4 (80.0-100.0) fL MCH 29.4 (25.0-34.0) pg MCHC 33.7 (32.0-36.0) g/dL RDW Std Deviation 48.7 H (36.4-46.3) fL RDW Coeff of Randell 15.2 H (11.5-14.5) % Plt Count 184 (130-400) K/uL MPV 10.7 (9.4-12.3) fL Immature Gran % (Auto) 0.2 % Neut % (Auto) 51.8 % Lymph % (Auto) 37.2 % [place] % (Auto) 7.6 % Eos % (Auto) 2.3 % Baso % (Auto) 0.9 % Neut # (Auto) 2.87 (1.4-6.5) K/uL Lymph # (Auto) 2.06 (1.2-3.4) K/uL [place] # (Auto) 0.42 (0.24-0.82) K/uL Eos # (Auto) 0.13 (0-0.50) K/uL Baso # (Auto) 0.05 (0-0.2) K/uL Immature Gran # (Auto) 0.01 (0.00-0.02) K/uL Imaging Data Attestation: I personally reviewed and interpreted this imaging study as follows: My Impression: Chest x-rayno acute infiltrate, failure, pneumothorax seen. There are some cardiomegaly. There is some calcification seen in the aorta but does not appear to be widened. ECG Data Attestation: I personally reviewed and interpreted this ECG as follows: Indication: + chest pain Rate (beats per minute): 50 Rhythm: + sinus bradycardia ECG [place]: + Normal ECG ST segments: + ST depression (Anterior) and + ST elevation (Anterolateral) ECG Findings: no PACs or no PVCs Comparison ECG Date: from (11/24/18) Change: the following changes noted (Findings consistent with acute STEMI are now present) MDM Narrative This patient comes in as described above. I did take ALS medical command and her EKG was very consistent with acute STEMI therefore I called heart alert immediately to expedite her care I saw her immediately upon arrival we had 2 large-bore IVs established her airway is stable we kept her on oxygen her blood pressure was initially in the 90s it did drop into the 70s we did open the IV fluids to give her preload. She does not appear to be in heart block but she is on the bradycardic side at times. Chest x-ray does not show any definite congestive heart failure. Labs are pending Dr. Valles did arrive and is going to take her to the [facility] for emergent angioplasty/cath. I talked to the douglas lomas at length and he also was able to see his prior to the [facility]. She was sent emergently to the [facility]. Continuous cardiac monitoring: Orders placed in EMR for continuous cardiac monitoring. Upon my interpretation patient noted to be in sinus bradycardia with a rate of [address] changes Impression & Plan Acute CT, History of coronary artery bypass graft, Chest pain, Acute hypotension Discharge Plan Visit Data Chief Complaint: Heart Alert ED Provider: Roman Christian Discharge Problem: Acute CT, History of coronary artery bypass graft, Chest pain, Acute hypotension Patient Disposition: Admitted As Inpatient Discharge Instructions Interventions: ED Discharge Assessment Last Done: 07/30/22 01:24 : Acute CT Qualifiers: Myocardial infarction type: ST elevation myocardial infarction Involved coronary artery: unspecified coronary artery Qualified Code(s): I21.3 - ST elevation (STEMI) myocardial infarction of unspecified site Chest pain Qualifiers: Chest pain type: precordial pain Qualified Code(s): R07.2 - Precordial pain
[2022-07-30 01:35] LABS: Partial Thromboplastin Ratio 0.8; Partial Thromboplastin Time 21.7 Seconds (21.0-31.0); Prothrombin Time 10.6 Seconds (9.0-12.0)
[2022-07-30] MEDS ORDERED: PHENYLEPHRINE HCL INJ 10 MG/ML VIAL (CATH LAB USE ONLY) ONE (01:39)
[2022-07-30] MEDS ORDERED: NOREPINEPHRINE BITARTRATE 1 MG/ML 4 ML VIAL (CATH LAB USE ONLY) ONE (01:39)
[2022-07-30] MEDS ORDERED: EPTIFIBATIDE 2 MG/ML 10 ML VIAL (CATH LAB USE ONLY) IV ONE (01:43)
[2022-07-30] MEDS ORDERED: EPTIFIBATIDE 0.75 MG/ML 75MG VIAL (CATH LAB USE ONLY) ONE (01:44)
[2022-07-30 01:54] LABS: Troponin I High Sensitivity 21.1 pg/ml (0-14)
[2022-07-30 01:59] LABS: Alanine Aminotransferase 17 U/L (7-52); Albumin Globulin Ratio 1.3 (0.9-2); Albumin Level 3.8 gm/dl (3.4-5.0); Alkaline Phosphatase 40 U/L (34-104); Anion Gap 10 (3-11); Aspartate Aminotransferase 18 U/L (13-39); BUN Creatinine Ratio 18.3 (10-20); Bilirubin,Total 0.9 mg/dl (0.2-1.0); Blood Urea Nitrogen 21 mg/dl (6-23); Calcium 8.6 mg/dl (8.5-10.1); Carbon Dioxide 23 mmol/L (21-32); Chloride 105 mmol/L (98-107); Est GFR (African American) 51.3 ml/min; Est GFR (Non-African American) 44.3 ml/min; Globulin 2.9 gm/dl (2.5-4.0); Glucose 160 mg/dl (70-99(Fasting)); Lipase 32 U/L (11-82); Potassium 3.1 mmol/L (3.5-5.1); Sodium 138 mmol/L (136-145); Total Protein 6.7 gm/dl (6.0-8.3)
[2022-07-30] MEDS ORDERED: DOPamine 400MG / 250ML D5W (Cath Lab Use ONLY) ONE (01:59)
[2022-07-30] MEDS ORDERED: FUROSEMIDE 40 MG/4 ML VIAL IV ONE (02:25)
[2022-07-30] MEDS ORDERED: RAPID SEQUENCE INDUCTION BAG ONE (02:26)
[2022-07-30] MEDS ORDERED: HEPARIN 25000 UNIT/500 ML D5W IV ONE (02:44)
[2022-07-30] MEDS ORDERED: CLOPIDOGREL BISULFATE 300 MG TAB ONE (02:55)
[2022-07-30] MEDS ORDERED: STAT IV Infusion **Titration per Protocol STA ×6 (03:04→13:56)
[2022-07-30] MEDS ORDERED: EPTIFIBATIDE BOLUS/DRIP IV STA (03:04)
[2022-07-30] MEDS ORDERED: ICU PROTOCOL FOR HYPERGLYCEMIA PRN (03:09)
[2022-07-30] MEDS ORDERED: EPTIFIBATIDE 75 MG/100 ML VIAL IV SCH (03:15)
[2022-07-30] MEDS ORDERED: fentaNYL citrate 2,500 MCG/250 ML BAG IV ONE (03:18)
[2022-07-30] MEDS ORDERED: MIDAZOLAM HCL 125MG/250ML D5W ONE (03:18)
--- NOTE | 2022-07-30 03:18 | Pre Anesthesia Assessment ---
Date of Service July 30, 2022 Pre Sedation Assessment Vital Signs Temp Pulse Pulse Resp BP BP Pulse Ox 07/30/22 01:15 57 L 20 77/47 L 97 07/30/22 01:16 96 07/30/22 01:15 96 07/30/22 01:09 37 C 43 L 16 89/53 L 98 O2 Del Method O2 Flow Rate 07/30/22 01:15 Nasal Cannula 3 07/30/22 01:16 Nasal Cannula 3 07/30/22 01:15 Room Air 3 07/30/22 01:09 Nasal Cannula 3 Cardiovascular Additional Comments: bradycardia Respiratory normal respiratory effort, lungs clear to auscultation Pre-Sedation Airway Assessment Smoking Status: Never smoker Notes The planned sedation has been discussed with the patient. Informed Consent was obtained. I have identified the patient, determined the appropriateness of sedation and have assessed the patient immediately prior to the procedure. All medicine(s) and interventions are by my order.
--- NOTE | 2022-07-30 03:20 | Post Anesthesia Assessment ---
Date of Service July 30, 2022 Post Sedation Assessment Vital Signs Temp Pulse Pulse Resp BP BP Pulse Ox 07/30/22 01:15 57 L 20 77/47 L 97 07/30/22 01:16 96 07/30/22 01:15 96 07/30/22 01:09 37 C 43 L 16 89/53 L 98 O2 Del Method O2 Flow Rate 07/30/22 01:15 Nasal Cannula 3 07/30/22 01:16 Nasal Cannula 3 07/30/22 01:15 Room Air 3 07/30/22 01:09 Nasal Cannula 3 Recovery Score Activity: Moves 0 extremities Respiration: Dyspnea/Limited Breathing (intubated) Circulation: +/-20-49% PreAnes Value Consciousness: Nonresponsive Oxygen Saturation: <90% w/ supp O2 Discharge Sedation Level of Care: Higher Level of Care Post Sedation Plan On clinical assessment, the patient appears to have tolerated the sedation without complications. Patient is recovering as anticipated. Patient will continue to be monitored by nursing and may be discharged when sedation discharge criteria are met per below protocol. Upon Completions of procedure up to 15 minutes continue every 5 minute vital signs and the P.A.R. score; then discharge to a Phase I or Fast Track to Phase II per the following guidelines: * Discharge Patient to appropriate Phase II area if PAR is 8 or greater or return to pre- procedure baseline. The post - procedure orders will be as directed. * If PAR score is less than 8 or not return to pre-procedure baseline then patient will follow Phase I monitoring till PAR is reached for Phase II. The Phase I may be done in procedure room or may call to secure a Phase I area. * If naloxone or flumazenil are used for reversal, hold in Phase I for continued monitoring from when last reversal dose was given for a minimum of 60 minutes or longer pending the nurse and/or physician discretion of patient condition before discharge to Phase II. Please call the Sedation Physician to re-evaluate and complete post-note for discharge to Phase II area. Do NOT discharge from procedure sedation or Phase 1 until post- sedation evaluation note is complete by procedure /sedation MD Sedation Discharge Instructions to be given to the patient at discharge to home. [facility] Procedure Codes (Charges) Sedation/Anesthesia Procedure 1: Sedation/Anesthesia: 02873 Mod Sedation by the same physician;Init15 Min Child Age 5 & Up Procedure 2: Sedation/Anesthesia: 62707 Mod Sedation by the same physician; Ea [id number] Minutes
--- NOTE | 2022-07-30 03:26 | Cardiac Catheterization ---
[facility] Data: [facility] Cardiac Status Clinical evaluation leading to the procedure CAD Presenation: STEMI (Inferior) Anginal Classification: CCS IV Heart Failure: No Cardiogenic Shock within 24 Hours: Yes Cardiac Arrest within 24 Hours: No STEMI OR Non-STEMI Symptom Onset Date: 07/29/22 Symptom Onset Time: 21:00 Thrombolytics: No Coronary Anatomy Left Main (% Stenosis): Normal LAD (% Stenosis): Ostial (100% chronic total occlusion) Circumflex (% Stenosis): Normal OM1 (% Stenosis): Normal L PL1 (% Stenosis): Normal RCA (% Stenosis): Mid (100% acute thrombotic stenosis) Grafts - LAD (%): Normal (Patent but atretic) Grafts - Ramus (%): Normal Diagnostic Physicians Name: Amari Valles MD, PhD Closure Device Percutaneous Entry Location: Femoral Recommendations: PCI without planned CABG and Management Recommendatons (Intra- aortic balloon pump, transvenous pacer, ICU admission.) PCI Indication: Immediate PCI for STEMI First Noted: First EKG Reason For Delay in PCI:: Hemodynamically unstable bradycardia Lesion Segment Name: Mid RCA Culprit Artery: Yes Stenosis Prior to Rx (%): 100% Chronic Total Occlusion: No Pre-Procedure JOAN Flow: 0 Previously Treated Lesion: No Lesion Complexity: Non-High/Non-C Lesion Length (mm): 10 mm Thrombus Present: Yes Bifurcation Lesion: No Guidewire Across Lesion: Yes Intraprocedure Events Significant Disection: No Perforation: No Cardiac Cath Procedure Full Procedure Date July 30, 2022 Pre-Procedure Diagnosis Pre-Procedure Diagnosis: STEMI (inferior, bradycardia) AUC Score AUC Score: 09 Post-Procedure Diagnosis Post-Procedure Diagnosis: Severe CAD (Cardiogenic shock, hemodynamically unstable bradycardia, hypoxia) Procedure(s) Performed Procedure(s) Performed: Coronary Angiography, Drug Eluting Stent, Temporary Pacemaker, IABP, Ultrasound Guided Vascular Access and Bypass Graft Angiography Cement Handler Amari Valles MD, PhD Estimated Blood Loss Estimated Blood Loss: 30 ml Medication(s) Medication(s): Aspirin, Clopidogrel, Fentanyl, Heparin, Integrilin, Lidocaine 1%, Adalberto-Synephrine, Nicardipine, Nitroglycerin and Versed Summary of Findings Brief description: Patient was brought to the cardiac catheterization suite where she was shaved and prepped in a sterile fashion. She was unresponsive with a low heart rate. Transcutaneous pacing was initiated. She then regained consciousness. We moved immediately to the access. Soft tissues of the right groin were anesthetized using 10 mL of 1% Xylocaine. Using ultrasound for guidance (image saved) the right femoral artery was accessed and a 6 [place] femoral artery sheath was placed. Again, using the ultrasound for guidance the right femoral vein was accessed and a 7 [place] femoral venous sheath was placed. A transvenous pacing wire was inserted through the venous sheath and then the balloon was inflated. Under fluoroscopic guidance the pacing wire was advanced to the RV and pacing was initiated at 100 bpm and 10 mA. This was then reduced to 80 bpm and 8 mA. We moved immediately to coronary angiography. Left coronary angiography was performed in orthogonal views with a 5 [place] JL 4 diagnostic catheter. Right coronary angiography was performed in orthogonal views with a 6 [place] JR4 guide catheter. Patient was provided IV heparin to undergo coronary intervention. ACT was checked intermittently and additional heparin provided as needed to maintain therapeutic ACT. A BMW reversal guidewire was advanced through the 6 [place] JR4 guide catheter and positioned distally in the RCA. Over this, a 2.5 x 12 mm balloon was advanced and inflated across the lesion. Balloon was deflated and flow was restored. Patient was started on Integrilin drip after double bolus administration. A guide liner was advanced over the wire, then a 3.0 x 12 mm Weston drug-eluting stent was then advanced and positioned across the lesion. This was deployed at 18 mounika. Stent balloon was removed and a 3.25 x 8 Euphora noncompliant balloon was advanced and positioned within the stent. The stent was then postdilated to 17 mounika proximally and 10 mounika distally. The balloon was removed after deflation. The dilator was removed. Coronary angiography was performed. The guidewire was removed and final angiographic evaluation was performed in orthogonal views. We then removed the guide catheter and completed the diagnostic portion of the study using a 5 [place] ASHTYN catheter for HANKS angiography in orthogonal views and a 5 [place] JR4 diagnostic catheter for SVG angiography in orthogonal views. All diagnostic catheters were removed. The patient had significant distress including hypotension requiring Adalberto- Synephrine bolus and dopamine drip. She had a lot of vomiting and likely aspiration. Fortunately, her heart rate responded to revascularization and dopamine drip and she was therefore only intermittently requiring transvenous pacing. We decided to provide hemodynamic support with intra-aortic balloon pump counterpulsation. The 6 [place] femoral artery sheath was exchanged for the 7.5 [place] balloon pump sheath over the wire. Then, 7.5 [place] Mike 40 cc intra-aortic balloon pump was advanced through the sheath and under fluoroscopic guidance over the wire was positioned in the descending thoracic aorta with the tip at the estee. After connecting the balloon pump catheter to the balloon pump and flushing all appropriate lines we initiated intra-aortic balloon pump at one-to-one ratio. Augmented pressure was over 120. The balloon pump was then sutured in place. The transvenous pacer was sutured in place. The right femoral access site was then dressed appropriately. Patient continued with significant hypoxia likely secondary to aspiration. We therefore requested intubation be performed by the emergency room physician. (See her note). Patient had received aspirin prior to arrival in the [facility]. We provided her with 600 mg of Plavix. She was subsequently admitted to the intensive care unit for further management. Coronary angiography: Left main trunk: Large caliber. Bifurcates into LAD and left circumflex. No apparent disease LAD: Appears to be occluded at the ostium. Left circumflex: Travels in the AV groove. First OM is a medium to large caliber branching vessel. The AV groove vessel then becomes medium in caliber as it traverses distally where it provides an atrial branch and terminates as a small posterolateral branch. There is no more than mild scattered plaques in the circumflex and its branches. RCA: This is a large-caliber vessel which is dominant. Mild calcification in the proximal to mid segment. There is diffuse mild disease. Then the mid to distal vessel has a large clot burden and is 100% occluded with JOAN 0 flow distally. HANKS to LAD: Relatively small caliber and atretic with distal anastomosis on the LAD. SVG to diagonal/ramus. Large caliber and widely patent graft. Distal anastomosis on the diagonal/ramus. Fills the klamath vessel antegrade and this appears to be fairly patent vessel. There is also retrograde filling back up into the LAD. The distal LAD is medium in caliber and reaches the apex. PCI to RCA: 0% residual stenosis post PCI. JOAN-3 flow post PCI No evidence of dissection or perforation post PCI There is mild residual stenosis in the mid to proximal RCA just prior to the stent. Distally the vessel is seen to bifurcate into a large PDA and a large branching posterolateral. No more than mild disease distally. Hemodynamics Rest Ao:: 66/32 mmHg Final Ao: 97/53 mmHg, mean 69 mmHg (augmented greater than 120 mmHg) LV: Not performed Recommendations Recommendations: PCI without planned CABG and Management Recommendatons (Intra- aortic balloon pump, transvenous pacer, ICU admission.) Radiation Exposure (mGy) 1509 mGy, fluoroscopy time 15.1 minutes Contrast (mls) 151 mL Anesthesia 50 mcg Fentanyl and 1 mg Versed Procedural Complication(s) None I attest to the content of the Intraoperative Record and any orders documented therein. Any exceptions are noted below. [facility] [place] Card Cath Procedure Codes Cardiac Catheterization Procedure 1: Cardiovascular Cath Procedures: 52999 Coronaries and Grafts/IM (venous & atrial) Therapeutic Services & Ancillary Procedure 1: Cardiovascular Tx and Anc Procedures: 67507 Ultrasonic Guidance Vascular Access Procedure 2: Cardiovascular Tx and Anc Procedures: 25120 Temp Pacer Insert Procedure 3: Cardiovascular Tx and Anc Procedures: 11843 IABP Insertion Moderate Sedation Procedure 1: Sedation/Anesthesia: 78525 Mod Sedation by the same physician;Init15 Min Child Age 5 & Up Stenting Procedure 1: Cardiovascular Stent Procedures: 52234 Perc transluminal revascularization of acute sub/total occl, aMI PG Care Time/CCT Total # of Minutes Spent Total Time Spent with Patient: Total time spent is greater than 50% in coordination of care (as documented) at patient's floor/unit and/or counseling patient:
[2022-07-30] MEDS ORDERED: MIDAZOLAM HCL 125 MG/250 ML BAG IV SCH (03:45)
[2022-07-30] MEDS ORDERED: ONDANSETRON INJ 2 MG/ML 2 ML VIAL IV PRN (03:55)
[2022-07-30] MEDS ORDERED: HEPARIN SODIUM/DEXTROSE 25,000 UNITS/500 ML BAG IV SCH (04:00)
--- NOTE | 2022-07-30 04:18 | Critical Care Consultation ---
Date of Consultation July 30, 2022 Assessment & Plan (1) Acute ID: Reason Critically Ill: 81-year-old female with history of CAD and CABG presents to the ICU in cardiogenic shock requiring dopamine drip and balloon pump, following inferior STEMI and s/p WILBUR x1 to the RCA. Neuro - Sedation: Versed and fentanyl drips Cardiac - STEMI/cardiogenic shockstatus post cardiac cath with WILBUR x1 to the RCA. Prior grafts noted to be patent. -Integrilin infusing. Continue heparin drip -Wean dopamine as tolerated. Maintain maps greater than 65 -Management of balloon pump per cardiology -Follow-up echo -Continuous hemodynamic monitoring with a line -Continuous monitor on telemetry -ASA, Lipitor, Plavix -Hold antihypertensives in the setting of shock Respiratory - Acute hypoxic respiratory failurelikely mixed etiology in the setting of acute heart failure, cardiogenic shock, and possible aspiration -No prior history of pulmonary disease -Currently mechanically ventilated, weaning FiO2 as indicated. Post intubation chest x-ray and ABG pending -Hold on diuresis for now in the setting of hypotension -Continuous end-tidal CO2 and pulse ox monitoring GI - N.p.o., OG tube to intermittent low wall suction RENAL/LYTES - Creatinine within normal limits, repleting potassium. Monitor routine BMPs and replete electrolytes as indicated - Foleystrict I's and O's ENDO - No history of diabetes or thyroid disease. ICU hyperglycemic protocol HEME - H&H stable, monitor routine CBC ID - Medication for infectious process at this time LINES/IV ACCESS - Peripheral IVs, A-line, balloon pump (right femoral), ET tube DVT PROPHYLAXIS - SCDs, heparin drip I have personally spent 55 minutes of critical care time in the direct management of this patient. This is a life/limb threatening event. This includes time spent evaluating patient, direct bedside care, chart review, placing orders, interpretation of diagnostic studies, discussion with consultants, patient, and family members, as well as other required patient management activities. This time is exclusive of all separately billable procedures, and teaching time and separate from and in addition to any other critical care service time. Thank you for allowing us to participate in the care of this patient. Please refer to my attending physician's documentation for any further recommendations. (2) Chest pain: (3) Cardiogenic shock: (4) Antiplatelet or antithrombotic long-term use: (5) History of coronary artery bypass graft: (6) Hypertension: (7) Hyperlipidemia: (8) CAD (coronary artery disease): History of Present Illness Attending Physician: Amari Valles MD, PhD History of Present Illness Patient is a 81-year-old female with past medical history of CAD (status post CABG x2 approximately 25 years ago), HTN, osteoarthritis who presented to the emergency department earlier this evening with complaints of chest pain 5/10. In route paramedics noticed EKG with inferior ST elevation and code STEMI was called in route. She received ASA and had previous taken her on nitroglycerin. On arrival to the Neuroradiologist patient was unresponsive and vomiting and required intubation. She was also bradycardic and hypotensive and transvenous pacer was inserted and she was started on dopamine. She received stent to the RCA x1 and her previous grafts were noted to be patent. She remained hypotensive and balloon pump was inserted. She is now transferred to ICU for further management at this time. Allergies Allergy/AdvReac Type Severity Reaction Status Date / Time No Known Drug Allergies Allergy Verified 07/16/22 10:47 Home Medications Medication Instructions Recorded Confirmed Type biotin 1 mg capsule 1 mg PO DAILY 11/18/18 07/16/22 History cholecalciferol (vitamin D3) 125 5,000 unit PO QAM 11/18/18 07/16/22 History mcg (5,000 unit) tablet (Vitamin D3) coenzyme Q10 100 mg capsule 100 mg PO DAILY 11/18/18 07/16/22 History (CoQ-10) cyanocobalamin (vitamin B-12) 5,000 mcg sublingual DAILY 11/18/18 07/16/22 History 5,000 mcg/mL sublingual drops (Vitamin B-12) omega 3 350 mg-dha 235 mg-epa 90 1 cap PO DAILY 11/18/18 07/16/22 History mg-fish oil 597 mg capsule,delay rel (Balko-3) multivitamin-ferrous 1 tab PO WK 11/24/18 07/16/22 History fumarate-folic acid 18 mg-400 mcg tablet (Daily Multivitamin with Iron) alendronate 70 mg tablet 70 mg PO Q7D 12/30/19 07/16/22 History aspirin 81 mg tablet,delayed 81 mg PO DAILY 12/30/19 07/16/22 History release amoxicillin 500 mg tablet 2,000 mg PO ONCE #20 tabs 06/13/20 07/16/22 Rx spironolactone 25 0.5 tab PO QAM #45 tabs 07/04/20 07/16/22 Rx mg-hydrochlorothiazide 25 mg tablet nitroglycerin 0.4 mg sublingual 0.4 mg sublingual Q5M PRN chest 07/17/21 07/16/22 Rx tablet pain #25 tabs metoprolol succinate 25 mg 12.5 mg PO HS #45 tabs 12/18/21 07/16/22 Rx tablet,extended release 24 hr (Toprol XL) potassium chloride 10 mEq 10 meq PO BID #180 tabs 01/31/22 07/16/22 Rx tablet,extended release rosuvastatin 5 mg tablet 5 mg PO .COMPLEX #60 tabs 07/16/22 07/16/22 Rx ezetimibe 10 mg tablet 10 mg PO DAILY #90 tabs 07/25/22 Rx Patient History Medical History (Updated 07/30/22 @ 04:26 by JD Navarro) Antiplatelet or antithrombotic long-term use CAD (coronary artery disease) Encounter for pre-operative examination Hyperlipidemia Hypertension Osteopenia Surgical History (Updated 07/30/22 @ 01:30 by Roman Christian MD) History of cardiac cath NO STENTS (PRIOR TO CABG 22 YEARS AGO) History of cataract surgery BILATERAL History of colonoscopy History of coronary artery bypass graft X2 VESSELS (22 YEARS AGO) History of dilatation and curettage History of hysterectomy VAGINAL History of lumpectomy of right breast History of right hip replacement Family History Mother Family hx of colon cancer Social History Smoking Status: Never smoker Second Hand Exposure: No; Hx Alcohol Use: No Hx Substance Use: No Preferred Language: Telugu Communication Ability: Effective Lead Data Architect Required: No Beliefs That Will Affect Care: None marital status: Current Living Situation: Spouse Feels Safe at Home: Yes Assistive Devices: Glasses and Walker Review of Systems Review of Systems: Unobtainable due to reduced consciousness Physical Exam Constitutional: + mechanically ventilated Sedated Eyes: PERRL, conjunctivae normal, anicteric sclerae ENMT: external ear and nose normal, oropharynx normal Neck: trachea midline, no thyromegaly Respiratory: normal respiratory effort, lungs clear to auscultation Cardiovascular: RRR, no murmur, no edema Heart Sounds: no murmur Extremities: no edema Paced rhythm on monitor Gastrointestinal (Abdomen): normal bowel sounds, soft, nontender, no hepatosplenomegaly Musculoskeletal: No muscular deformity Skin: no rashes, warm and dry Neurologic: Unable to assess due to sedation Psychiatric: Unable to assess due to sedation Genitourinary: Indwelling Sofia catheter present Results & Data Results & Data ([facility]) Vital Signs (Past 12 Hours) Vital Signs Temp Pulse Pulse Resp BP BP Pulse Ox 07/30/22 01:15 57 L 20 77/47 L 97 07/30/22 01:16 96 07/30/22 01:15 96 07/30/22 01:09 37 C 43 L 16 89/53 L 98 O2 Del Method O2 Flow Rate 07/30/22 01:15 Nasal Cannula 3 07/30/22 01:16 Nasal Cannula 3 07/30/22 01:15 Room Air 3 07/30/22 01:09 Nasal Cannula 3 Coding Level of Care Code Critical Care 1st 30-74 mins Diagnoses Acute ID I21.3 Involved coronary artery: unspecified coronary artery Myocardial infarction type: ST elevation myocardial infarction Chest pain R07.2 Chest pain type: precordial pain Cardiogenic shock R57.0 Antiplatelet or antithrombotic long-term use Z79.02 History of coronary artery bypass graft Z95.1 Hypertension I10 Hyperlipidemia E78.5 CAD (coronary artery disease) I25.10 (1) Acute ID Involved coronary artery: unspecified coronary artery Myocardial infarction type: ST elevation myocardial infarction Qualified Code(s): I21.3 - ST elevation (STEMI) myocardial infarction of unspecified site (2) Chest pain Chest pain type: precordial pain Qualified Code(s): R07.2 - Precordial pain
--- NOTE | 2022-07-30 04:20 | Procedure Note ---
Procedure Note Date of Service July 30, 2022 Note ARTERIAL LINE PROCEDURE NOTE: Procedure: Arterial Line Placement Attending: Dr. Espinoza Provider: JD Garcia Indication: Monitoring on Pressors Anesthesia: None Line placed emergently in the setting of cardiogenic shock with sedated patient requiring vasopressor support and continuous hemodynamic monitoring. A time-out was completed verifying correct patient, procedure, site, positioning, and implant(s) or special equipment if applicable. Allens test was performed to ensure adequate perfusion. Patients right wrist was prepped and draped in the usual sterile fashion. Ultrasound guidance was used to aid needle placement. A 20g Arrow arterial line was introduced into the right radial artery. Catheter was threaded, and the needle was removed with appropriate blood return. Good waveform was observed. The patient tolerated the procedure well. Confirmation of placement with ultrasound. Blood Loss: Minimal Complications: None Procedural Ultrasound Guidance: Procedure Date: 07/30/2022 Indication: Arterial line insertion Attending: Dr. Espinoza Provider: JD Garcia Artery Identified: YES Line confirmed in Artery with ultrasound: Yes Complications: NONE Patient tolerated procedure: WELL Coding CPT Codes Tubes, Drains, and Vasc Access - Tubes, Drains, and Vasc Access: [id number] Place Catheter In Artery ([id number]) Tubes, Drains, and Vasc Access - Tubes, Drains, and Vasc Access: [id number] Ultrasound Guidance For Vascular ([id number]) [facility] [place] Procedure Codes (Charges) Tubes, Drains, and Vasc Access Procedure 1: Tubes, Drains, and Vasc Access: [id number] Place Catheter In Artery Procedure 2: Tubes, Drains, and Vasc Access: [id number] Ultrasound Guidance For Vascular
--- NOTE | 2022-07-30 04:24 | Cardiology Consultation ---
Date of Consultation July 30, 2022 Assessment & Plan (1) Cardiogenic shock: Secondary to acute inferior ST elevation UT complicated by hemodynamically unstable bradycardia with underlying chronic severe coronary disease and most importantly an atretic HANKS to LAD but a patent SVG to the ramus/diagonal. Continue intra-aortic balloon pump counterpulsation at one-to-one. Heparin is not currently needed. Continue vasopressor support as needed. We will try to wean the vasopressor support and the intra-aortic balloon pump over the next 24 to 48 hours. We will obtain an echocardiogram in the next 24 hours. Additional recommendations pending results of that study. Present on Admission?: No (2) Acute UT: Status post PCI for acute occlusion of the RCA. She will remain on dual antiplatelet therapy with aspirin 325 mg daily and Plavix 75 mg daily. Integrilin drip for 12 hours until Plavix 600 mg has been loaded and taken up into her system. For now, we will not initiate guideline directed medical therapy including beta-philip and SHER inhibitor/ARB given cardiogenic shock. She was initiated on a atorvastatin 40 mg but reportedly has intolerance so this will likely need to be converted back to Crestor prior to discharge. Present on Admission?: Yes (3) History of coronary artery bypass graft: Two-vessel CABG reported. Details unclear. She has a HANKS to LAD which appears atretic on coronary angiography at this time. She has an SVG to the diagonal or ramus which is patent and provides retrograde flow to the LAD. Present on Admission?: Yes (4) Hypertension: Benign essential hypertension is a chronic issue. However, she is currently hypotensive. No medical management at this time for hypertension. We will reintroduce medications if her cardiogenic shock resolves. (5) Hyperlipidemia: High risk. High intensity statin therapy is recommended. She has had intolerance in the past. We will work on Crestor and she may need to consider Repatha as an outpatient. Plan Patient with hypoxia likely secondary to aspiration plus or minus CHF. Currently intubated. Lasix as needed. Chest x-ray and remainder of management per critical care team. History of Present Illness Reason for Consultation: Acute inferior ST elevation UT and bradycardia Attending Physician: Amari Valles MD, PhD History of Present Illness 81-year-old female with cardiac history including remote two-vessel coronary artery bypass grafting performed at [facility] in the late . She follows with Dr. Nitish Ryan for cardiology and was seen earlier this month. At that time, she had no significant change in her clinical status. On the day of admission beginning around 9 PM she had sudden onset of severe chest discomfort, diaphoresis, shortness of breath, and nausea. She took nitroglycerin and aspirin. EMS was called and on arrival to the emergency department she was noted to have inferior ST elevation UT and bradycardia with a heart rate in the 40s. I was asked to see her emergently. On my arrival, patient still has significant chest discomfort, had mild shortness of breath, diaphoresis, was cold and clammy with heart rate in the 40s and impressive ST elevations inferiorly with reciprocal ST depressions. Her blood pressure was reasonably maintained. We briefly discussed need for emergent cardiac catheterization and she agreed. She was taken emergently to the cardiac catheterization suite. She became unresponsive as she arrived in the [employer] Protection Assistant. She did have a pulse and was in sinus bradycardia. We transcutaneously paced her and she regained some responsiveness complaining of the pacer. Emergent transvenous pacer was inserted. She remained hypotensive and so she was started on vasopressor support. Coronary angiography revealed an occluded RCA which was treated with PCI. She remained hypotensive and had a lot of vomiting with likely aspiration. Her oxygen saturation was diminished requiring BiPAP. An intra-aortic balloon pump was inserted which significantly improved her blood pressure but not her hypoxia. She was then intubated by the emergency medicine physician on our request. She was provided IV Lasix. She remained on dopamine drip and the balloon pump was on one-to-one ratio. Preh ospital she received aspirin and postprocedure she received Plavix. She was also on an Integrilin drip and heparin as needed during the PCI. Presently, Integrilin drip will continue to complete 12 hours. She is now admitted to the intensive care unit. She is intubated and sedated. I discussed her clinical course with her postprocedure. He tells me that she has had significant exertional dyspnea with any kind of ambulation upgrade which has significantly worsened recently. He states she can only go short distances before she has to stop. She attends the [email or web address] [place] games and he has noted significantly diminished ability to ambulate into the stadium. She has not described any chest discomfort. Allergies Allergy/AdvReac Type Severity Reaction Status Date / Time No Known Drug Allergies Allergy Verified 07/16/22 10:47 Home Medications Medication Instructions Recorded Confirmed Type biotin 1 mg capsule 1 mg PO DAILY 11/18/18 07/16/22 History cholecalciferol (vitamin D3) 125 5,000 unit PO QAM 11/18/18 07/16/22 History mcg (5,000 unit) tablet (Vitamin D3) coenzyme Q10 100 mg capsule 100 mg PO DAILY 11/18/18 07/16/22 History (CoQ-10) cyanocobalamin (vitamin B-12) 5,000 mcg sublingual DAILY 11/18/18 07/16/22 H istory 5,000 mcg/mL sublingual drops (Vitamin B-12) omega 3 350 mg-dha 235 mg-epa 90 1 cap PO DAILY 11/18/18 07/16/22 History mg-fish oil 597 mg capsule,delay rel ([place]-3) multivitamin-ferrous 1 tab PO WK 11/24/18 07/16/22 History fumarate-folic acid 18 mg-400 mcg tablet (Daily Multivitamin with Iron) alendronate 70 mg tablet 70 mg PO Q7D 12/30/19 07/16/22 History aspirin 81 mg tablet,delayed 81 mg PO DAILY 12/30/19 07/16/22 History release amoxicillin 500 mg tablet 2,000 mg PO ONCE #20 tabs 06/13/20 07/16/22 Rx spironolactone 25 0.5 tab PO QAM #45 tabs 07/04/20 07/16/22 Rx mg-hydrochlorothiazide 25 mg tablet nitroglycerin 0.4 mg sublingual 0.4 mg sublingual Q5M PRN chest 07/17/21 07/16/22 Rx tablet pain #25 tabs metoprolol succinate 25 mg 12.5 mg PO HS #45 tabs 12/18/21 07/16/22 Rx tablet,extended release 24 hr (Toprol XL) potassium chloride 10 mEq 10 meq PO BID #180 tabs 01/31/22 07/16/22 Rx tablet,extended release rosuvastatin 5 mg tablet 5 mg PO .COMPLEX #60 tabs 07/16/22 07/16/22 Rx ezetimibe 10 mg tablet 10 mg PO DAILY #90 tabs 07/25/22 Rx Patient History Medical History (Updated 07/30/22 @ 04:26 by JD Navarro) Antiplatelet or antithrombotic long-term use CAD (coronary artery disease) Encounter for pre-operative examination Hyperlipidemia Hypertension Osteopenia Surgical History History of cardiac cath NO STENTS (PRIOR TO CABG 22 YEARS AGO) History of cataract surgery BILATERAL History of colonoscopy History of coronary artery bypass graft X2 VESSELS (22 YEARS AGO) History of dilatation and curettage History of hysterectomy VAGINAL History of lumpectomy of right breast History of right hip replacement Family History Mother Family hx of colon cancer Social History Smoking Status: Never smoker Second Hand Exposure: No; Hx Alcohol Use: No Hx Substance Use: No Preferred Language: Upper Sorbian Communication Ability: Effective Hand Pleater Required: No Beliefs That Will Affect Care: None marital status: Current Living Situation: Spouse Feels Safe at Home: Yes Assistive Devices: Glasses and Walker Review of Systems Review of Systems: Unobtainable due to reduced consciousness (Only obtained briefly in the emergency department as discussed in the HPI.) Physical Exam Constitutional: Initially coto, diaphoretic, appearing critically ill. Now, intubated and sedated with improved color. Eyes: PERRL, conjunctivae normal, anicteric sclerae ENMT: external ear and nose normal, oropharynx normal Neck: No JVD Respiratory: normal respiratory effort, lungs clear to auscultation (On initial evaluation. Now intubated.) Cardiovascular: Regular rhythm with bradycardic rate. 1+ distal pulses. No edema. Gastrointestinal (Abdomen): Obese. Normal active bowel sounds. Neurologic: Currently intubated and sedated. Initially cognition intact. Speech fluent. No focal deficits. Psychiatric: A+Ox3, euthymic affect Results & Data ([facility]) Vital Signs (Past 12 Hours) Vital Signs Temp Pulse Pulse Resp BP BP Pulse Ox 07/30/22 01:15 57 L 20 77/47 L 97 07/30/22 01:16 96 07/30/22 01:15 96 07/30/22 01:09 37 C 43 L 16 89/53 L 98 O2 Del Method O2 Flow Rate 07/30/22 01:15 Nasal Cannula 3 07/30/22 01:16 Nasal Cannula 3 07/30/22 01:15 Room Air 3 07/30/22 01:09 Nasal Cannula 3 PG Care Time/CCT Total # of Minutes Spent Total Time Spent with Patient: Total time spent is greater than 50% in coordination of care (as documented) at patient's floor/unit and/or counseling patient: Critical Care Time: Yes 1 hour and 15 minutes of critical care time was spent in the initial evaluation, physical exam, review of records, formulation and implementation of a plan of care, discussion with family and the care team, and documentation of all of the above. This is exclusive of the time spent in the procedure. [place] [address] Inpt Consult Level 5 Patient Type New History Comprehensive Exam Comprehensive Medical Decision Making High Complexity Diagnoses Cardiogenic shock R57.0 Acute UT I21.3 Involved coronary artery: unspecified coronary artery Myocardial infarction type: ST elevation myocardial infarction History of coronary artery bypass graft Z95.1 Hypertension I10 Hyperlipidemia E78.5 Additional Codes Critical Care Time - Critical Care Time: Yes ([id number]) (1) Acute UT Involved coronary artery: unspecified coronary artery Myocardial infarction type: ST elevation myocardial infarction Qualified Code(s): I21.3 - ST elevation (STEMI) myocardial infarction of unspecified site
--- NOTE | 2022-07-30 04:50 | History & Physical Report ---
Date of Service July 30, 2022 Assessment & Plan (1) Acute HI: Plan: 81yo female with history of CAD s/p CABG x 2V present with inferior-lateral STEMI s/p cardiac catheterization revealing 100% occlusion of RCA s/p balloon angioplasty and placement of WILBUR x 1, nonoccluded grafts. Course complicated by bradycardia requiring placement of transvenous pacer, intraoperative hypotension requiring vasopressors - norepinephrine, manuel- synephrine and placement of IABP counterpulsation device and hypoxic respiratory failure requiring intubation. Patient presetntly intubated, sedated, HD stable. 1. Neuro: intubated and sedated -On Fentanyl for pain -On Versed for sedation -Titrate to maintain RASS of 0 - -1 2. Pulmonary - s/p acute hypoxic respiratory failure, possible aspiration event requiring intubation and mechanical ventilation. -Adequate oxygenation on current settings (AC/VC 14/400/50%/8) -Consider diuresis when BP and hemodynamics improve 3. CV - history of CAD s/p CABG x 2 vessel, acute inferior HI with bradycardia requiring transvenous pacing, hypotension requiring vasopressors and placement of IABP -MICU admission -Continue Eptifibatide to completion -Trend troponin -Check 2D echo -Continue heparin gtt -Wean Dopamine as tolerated COntinue ASA, Plavix, Lipitor. Patient has been somewhat intolerant of statins in the past, may consider PCSK9 inhibitor? -Maintain IABP, monitor pulses 4. GI - no acute issues -Protonix for prophylaxis while intubated -OGT -NPO for now 5. - no acute issues -Monitor renal function -Replete K -Maintain electrolytes -Sofia to gravity for strict I/Os 6. Heme - No acute issues. -Monitor CBC -Monitor groin site 7. ID - afebrile -Monitor (2) Cardiogenic shock: (3) Hypertension: (4) Hyperlipidemia: (5) CAD (coronary artery disease): History of Present Illness Chief Complaint: STEMI, Code Heart Primary Care Provider: MD Raeann CollierCarlitos is an 81yo female with history of CAD s/p CABG x 2 V in 1995 (HANKS to SVG and SVG to LAD), HTN, HLP presenting to [facility] as Heart Alert. Patient developed chest pain prior to arrival, 5/10 in severity. She took ASA 324 and Nitro x 3 prior to arrival. Abnormal EKG transmitted by EMS concerning for inferior-lateral STEMI. Patient was brought to the Catheterization lab. Unresponsive and bradycardic at that time. She had a transcutaneous pacer placed via right femoral site. Catheterization revealed patent grafts. Patient had 100% occlusion of the mid RCA with clot burden s/p balloon angioplasty and placement of WILBUR x 1. SHhe was treated in integrilin bolus x 2 and drip as well as Plavix load 600mg Patient had significant hypotension during the case and was given manuel- synephrine. She also developed nausea, vomiting and possible aspiration. An intra-aortic balloon pump was placed for cardiac support. Patient was intubated for hypoxic respiratory failure. Allergies Allergy/AdvReac Type Severity Reaction Status Date / Time No Known Drug Allergies Allergy Verified 07/16/22 10:47 Home Medications Medication Instructions Recorded Confirmed Type biotin 1 mg capsule 1 mg PO DAILY 11/18/18 07/16/22 History cholecalciferol (vitamin D3) 125 5,000 unit PO QAM 11/18/18 07/16/22 History mcg (5,000 unit) tablet (Vitamin D3) coenzyme Q10 100 mg capsule 100 mg PO DAILY 11/18/18 07/16/22 History (CoQ-10) cyanocobalamin (vitamin B-12) 5,000 mcg sublingual DAILY 11/18/18 07/16/22 History 5,000 mcg/mL sublingual drops (Vitamin B-12) omega 3 350 mg-dha 235 mg-epa 90 1 cap PO DAILY 11/18/18 07/16/22 History mg-fish oil 597 mg capsule,delay rel ([place]-3) multivitamin-ferrous 1 tab PO WK 11/24/18 07/16/22 History fumarate-folic acid 18 mg-400 mcg tablet (Daily Multivitamin with Iron) alendronate 70 mg tablet 70 mg PO Q7D 12/30/19 07/16/22 History aspirin 81 mg tablet,delayed 81 mg PO DAILY 12/30/19 07/16/22 History release amoxicillin 500 mg tablet 2,000 mg PO ONCE #20 tabs 06/13/20 07/16/22 Rx spironolactone 25 0.5 tab PO QAM #45 tabs 07/04/20 07/16/22 Rx mg-hydrochlorothiazide 25 mg tablet nitroglycerin 0.4 mg sublingual 0.4 mg sublingual Q5M PRN chest 07/17/21 07/16/22 Rx tablet pain #25 tabs metoprolol succinate 25 mg 12.5 mg PO HS #45 tabs 12/18/21 07/16/22 Rx tablet,extended release 24 hr (Toprol XL) potassium chloride 10 mEq 10 meq PO BID #180 tabs 01/31/22 07/16/22 Rx tablet,extended release rosuvastatin 5 mg tablet 5 mg PO .COMPLEX #60 tabs 07/16/22 07/16/22 Rx ezetimibe 10 mg tablet 10 mg PO DAILY #90 tabs 07/25/22 Rx Past Med/Surg History Medical History (Updated 07/30/22 @ 04:26 by JD Navarro) Antiplatelet or antithrombotic long-term use CAD (coronary artery disease) Encounter for pre-operative examination Hyperlipidemia Hypertension Osteopenia Surgical History History of cardiac cath NO STENTS (PRIOR TO CABG 22 YEARS AGO) History of cataract surgery BILATERAL History of colonoscopy History of coronary artery bypass graft X2 VESSELS (22 YEARS AGO) History of dilatation and curettage History of hysterectomy VAGINAL History of lumpectomy of right breast History of right hip replacement Family History Mother Family hx of colon cancer Social History Smoking Status: Never smoker Second Hand Exposure: No; Hx Alcohol Use: No Hx Substance Use: No Preferred Language: Turkmen Communication Ability: Effective Logistics Assistant Required: No Beliefs That Will Affect Care: None marital status: Current Living Situation: Spouse Feels Safe at Home: Yes Assistive Devices: Glasses and Walker Review of Systems Review of Systems: Unobtainable due to endotracheal tube Physical Exam Physical Exam: General: patient intubated and sedated, NAD Skin: warm, dry, intact, no rashes or lesions HEENT: NC/AT, PERRL, anicteric sclera, conjunctiva without injection, external ear normal to inspection and nontender, nares patent, moist mucus membranes, ETT in place, neck supple, trachea midline, no LAD, no thyromegaly, no JVD Heart: +S1/S2, regular, iroquois pacing apparent on monitor, IABP in place with augmented pressure 97 Lungs: equal air entry bilaterally, no rales/rhonchi/wheezes Abd: +BS, soft, NT/ND, no masses/organomegaly/ascites Ext: warm, 2+ pulses in UE/LE bilaterally, no clubbing/cyanosis or edema Neuro: sedated Right groin - IABP ETT in place RIght radial A-line Results & Data Results & Data ([facility]) Vital Signs (Past 12 Hours) Vital Signs Temp Pulse Pulse Resp BP BP Pulse Ox 07/30/22 03:50 07/30/22 03:50 70 16 07/30/22 01:15 57 L 20 77/47 L 97 07/30/22 01:16 96 07/30/22 01:15 96 07/30/22 01:09 37 C 43 L 16 89/53 L 98 O2 Del Method O2 Flow Rate FiO2 07/30/22 03:50 Mechanical Vent 50 07/30/22 03:50 Mechanical Vent 50 07/30/22 01:15 Nasal Cannula 3 07/30/22 01:16 Nasal Cannula 3 07/30/22 01:15 Room Air 3 07/30/22 01:09 Nasal Cannula 3 Laboratory Results Laboratory Results WBC 9.05 K/ul (4.8-10.8) 07/30/22 07:26 RBC 4.17 M/uL (3.93-5.22) 07/30/22 07:26 Hgb 12.3 g/dl (12.0-16.0) 07/30/22 07:26 POC Hgb 12.9 g/dl (12.0-16.0) 07/30/22 04:47 Hct 36.1 % (34.1-44.9) 07/30/22 07:26 POC Hct 38 % (37-47) 07/30/22 04:47 MCV 86.6 fL (80.0-100.0) 07/30/22 07:26 MCH 29.5 pg (25.0-34.0) 07/30/22 07:26 MCHC 34.1 g/dL (32.0-36.0) 07/30/22 07:26 RDW Std Deviation 48.0 fL (36.4-46.3) H 07/30/22 07:26 RDW Coeff of Randell 15.2 % (11.5-14.5) H 07/30/22 07:26 Plt Count 213 K/uL (130-400) 07/30/22 07:26 MPV 10.9 fL (9.4-12.3) 07/30/22 07:26 Immature Gran % (Auto) 0.5 % 07/30/22 05:39 Neut % (Auto) 84.2 % 07/30/22 05:39 Lymph % (Auto) 9.2 % 07/30/22 05:39 [place] % (Auto) 5.5 % 07/30/22 05:39 Eos % (Auto) 0.2 % 07/30/22 05:39 Baso % (Auto) 0.4 % 07/30/22 05:39 Neut # (Auto) 7.17 K/uL (1.4-6.5) H 07/30/22 05:39 Lymph # (Auto) 0.78 K/uL (1.2-3.4) L 07/30/22 05:39 [place] # (Auto) 0.47 K/uL (0.24-0.82) 07/30/22 05:39 Eos # (Auto) 0.02 K/uL (0-0.50) 07/30/22 05:39 Baso # (Auto) 0.03 K/uL (0-0.2) 07/30/22 05:39 Immature Gran # (Auto) 0.04 K/uL (0.00-0.02) H 07/30/22 05:39 PT 10.6 Seconds (9.0-12.0) 07/30/22 01:12 INR 1.0 (0.9-1.1) 07/30/22 01:12 APTT 21.7 Seconds (21.0-31.0) 07/30/22 01:12 PTT Ratio 0.8 07/30/22 01:12 Activ Coag Time Kaolin 265 SECONDS (94-140) H 07/30/22 02:28 Sample Site Art Line 07/30/22 04:47 POC pH 7.41 (7.35-7.45) 07/30/22 04:47 POC pCO2 33 mmHg (35-46) L 07/30/22 04:47 POC pO2 69 mmHg (80-95) L 07/30/22 04:47 POC HCO3 21 kallie/L (19-24) 07/30/22 04:47 POC Total CO2 22 mmol/L (24-31) L 07/30/22 04:47 POC Base Excess -4.0 kallie/L (-9-1.8) 07/30/22 04:47 ABG pH (Temp Correct) 7.466 (7.35-7.45) H 07/30/22 04:47 ABG pCO2 (Temp Corrct 28 mmHg (35-46) L 07/30/22 04:47 POC ABG pO2 at Pt Temp 54 07/30/22 04:47 POC ABG O2 Sat 94.0 % (90-95) 07/30/22 04:47 Miguelangel Test NA 07/30/22 04:47 O2 Delivery Device Ventilator 07/30/22 04:47 POC O2 Rate 16 07/30/22 04:47 POC FiO2 50 % 07/30/22 04:47 Tidal Volume 400 07/30/22 04:47 PEEP 8 07/30/22 04:47 POC Sodium 137 mmol/L (135-144) 07/30/22 04:47 Sodium 138 mmol/L (136-145) 07/30/22 01:12 POC Potassium 2.8 mmol/L (3.3-5.0) L 07/30/22 04:47 Potassium 3.1 mmol/L (3.5-5.1) L 07/30/22 01:12 Chloride 105 mmol/L (98-107) 07/30/22 01:12 Carbon Dioxide 23 mmol/L (21-32) 07/30/22 01:12 Anion Gap 10 (3-11) 07/30/22 01:12 BUN 21 mg/dl (6-23) 07/30/22 01:12 Creatinine 1.15 mg/dl (0.6-1.2) 07/30/22 01:12 Est Cr Clr Drug Dosing Not Reportable 07/30/22 01:12 Est GFR ( Amer) 51.3 ml/min 07/30/22 01:12 Est GFR (Non-Af Amer) 44.3 ml/min 07/30/22 01:12 BUN/Creatinine Ratio 18.3 (10-20) 07/30/22 01:12 Glucose 160 mg/dl (70-99(Fasting)) H 07/30/22 01:12 Calcium 8.6 mg/dl (8.5-10.1) 07/30/22 01:12 Phosphorus 2.1 mg/dl (2.5-4.9) L 07/30/22 05:39 Magnesium 1.9 mg/dl (1.7-2.4) 07/30/22 05:39 Magnesium 2.0 mg/dl (1.7-2.4) 07/30/22 05:39 Total Bilirubin 0.9 mg/dl (0.2-1.0) 07/30/22 01:12 AST 18 U/L (13-39) 07/30/22 01:12 ALT 17 U/L (7-52) 07/30/22 01:12 Alkaline Phosphatase 40 U/L (34-104) 07/30/22 01:12 Troponin I High Sens 21.1 pg/ml (0-14) H 07/30/22 01:12 Total Protein 6.7 gm/dl (6.0-8.3) 07/30/22 01:12 Albumin 3.8 gm/dl (3.4-5.0) 07/30/22 01:12 Globulin 2.9 gm/dl (2.5-4.0) 07/30/22 01:12 Albumin/Globulin Ratio 1.3 (0.9-2) 07/30/22 01:12 Triglycerides 56 mg/dl (0-150) 07/30/22 05:39 Cholesterol 130 mg/dl (0-200) 07/30/22 05:39 LDL Cholesterol Direct 79 mg/dl 07/30/22 05:39 LDL Cholesterol, Calc 76 mg/dl 07/30/22 05:39 VLDL Cholesterol, Calc 11 mg/dl (0-30) 07/30/22 05:39 HDL Cholesterol 43 mg/dl 07/30/22 05:39 Cholesterol/HDL Ratio 3.0 (0-5) 07/30/22 05:39 Lipase 32 U/L (11-82) 07/30/22 01:12 Nasal Screen MRSA (PCR) Negative (Negative) 07/30/22 05:00 SARS-CoV-2, RNA, NAAT NEGATIVE (NEGATIVE) 07/30/22 05:45 Impressions Chest X-Ray 07/30/22 04:29 XR chest 1V portable CLINICAL HISTORY: intubation COMPARISON STUDY: Chest radiograph July 30, 2022 at 1:07 AM. FINDINGS: Tip of endotracheal tube is 5 mm above the estee. No pneumothorax is present. There is a probable trace left pleural fusion. Mild left basilar opacity is noted. Interstitial thickening and patchy right lung airspace opacities are present. Cardiomediastinal silhouette is stable. There are median sternotomy wires and mediastinal surgical clips. IMPRESSION: 1. Tip of endotracheal tube 5 mm above the estee. The tube could be withdrawn 2 cm. 2. Interstitial thickening with patchy right lung airspace opacities. The findings favor pulmonary edema. 3. Trace left pleural effusion with left basilar opacity which could reflect consolidation or atelectasis. ACT 112: Negative or not required by law. Electronically signed by: Ross Call M.D. 07/30/2022 6:44 AM Code Status & VTE Plan VTE Prophylaxis Plan VTE Prophylaxis will be ordered: Yes Critical Care Time 60 minutes PG Care Time/CCT Total # of Minutes Spent Total Time Spent with Patient: Total time spent is greater than 50% in coordination of care (as documented) at patient's floor/unit and/or counseling patient: Coding Level of Care Code None Diagnoses Acute HI I21.3 Involved coronary artery: unspecified coronary artery Myocardial infarction type: ST elevation myocardial infarction Cardiogenic shock R57.0 Hypertension I10 Hyperlipidemia E78.5 CAD (coronary artery disease) I25.10 (1) Acute HI Involved coronary artery: unspecified coronary artery Myocardial infarction type: ST elevation myocardial infarction Qualified Code(s): I21.3 - ST elevation (STEMI) myocardial infarction of unspecified site
[2022-07-30 05:10] LABS: iSTAT Art Bld Gas pCO2 Correct 28 mmHg (35-46); iSTAT Art Bld Gas pH Corrected 7.466 (7.35-7.45); iSTAT Arterial Blood Gas HCO3 21 meg/L (19-24); iSTAT Arterial Blood Gas pCO2 33 mmHg (35-46); iSTAT Arterial Blood Gas pH 7.41 (7.35-7.45); iSTAT Arterial Blood Gas pO2 69 mmHg (80-95); iSTAT Arterial Blood Gas pO2 C 54; iSTAT Carbon Dioxide 22 mmol/L (24-31); iSTAT FiO2 50 %; iSTAT Hematocrit 38 % (37-47); iSTAT Hemoglobin 12.9 g/dl (12.0-16.0); iSTAT Potassium 2.8 mmol/L (3.3-5.0); iSTAT Site Art Line; iSTAT Sodium 137 mmol/L (135-144)
[2022-07-30] MEDS: fentaNYL citrate 2,500 MCG/250 ML BAG IV SCH (05:18)
[2022-07-30] MEDS: POTASSIUM CHLORIDE / WTR 10 MEQ/100 ML PLCT IV SCH ×4 (05:21→08:17)
[2022-07-30 06:10] LABS: Basophils # (auto) 0.03 K/uL (0-0.2); Basophils % (auto) 0.4 %; Eosinophils # (auto) 0.02 K/uL (0-0.50); Eosinophils % (auto) 0.2 %; Hematocrit (blood only) 37.1 % (34.1-44.9); Hemoglobin 12.7 g/dl (12.0-16.0); Immature Granulocytes # (auto) 0.04 K/uL (0.00-0.02); Immature Granulocytes % (auto) 0.5 %; Lymphocytes # (auto) 0.78 K/uL (1.2-3.4); Lymphocytes % (auto) 9.2 %; Mean Corpuscular Hemoglobin 29.4 pg (25.0-34.0); Mean Corpuscular Hgb Conc 34.2 g/dL (32.0-36.0); Mean Corpuscular Volume 85.9 fL (80.0-100.0); Mean Platelet Volume 11.3 fL (9.4-12.3); Monocytes # (auto) 0.47 K/uL (0.24-0.82); Monocytes % (auto) 5.5 %; Neutrophils # (auto) 7.17 K/uL (1.4-6.5); Neutrophils % (auto) 84.2 %; Platelet Count 220 K/uL (130-400); RDW Coefficient of Variation 15.2 % (11.5-14.5); RDW Standard Deviation 47.8 fL (36.4-46.3); Red Blood Count 4.32 M/uL (3.93-5.22); White Blood Count 8.51 K/ul (4.8-10.8)
[2022-07-30] MEDS ORDERED: DOPamine / D5W 400 MG/250 ML BAG IV SCH (06:15)
[2022-07-30 06:44] LABS: Magnesium 1.9 mg/dl (1.7-2.4)
[2022-07-30 06:45] LABS: Phosphorus 2.1 mg/dl (2.5-4.9)
--- NOTE | 2022-07-30 06:46 | XRay Report ---
XR chest 1V portable CLINICAL HISTORY: intubation COMPARISON STUDY: Chest radiograph July 30, 2022 at 1:07 AM. FINDINGS: Tip of endotracheal tube is 5 mm above the estee. No pneumothorax is present. There is a p robable trace left pleural fusion. Mild left basilar opacity is noted. Interstitial thickening and pa tchy right lung airspace opacities are present. Cardiomediastinal silhouette is stable. There are med licha sternotomy wires and mediastinal surgical clips. IMPRESSION: 1. Tip of endotracheal tube 5 mm above the estee. The tube could be withdrawn 2 cm. 2. Interstitial thickening with patchy right lung airspace opacities. The findings favor pulmonary ed damaris. 3. Trace left pleural effusion with left basilar opacity which could reflect consolidation or atelect asis. ACT 112: Negative or not required by law. Electronically signed by: Ross Call M.D. 07/30/2022 6:44 AM
--- NOTE | 2022-07-30 07:02 | XRay Report ---
XR chest 1V portable HISTORY: 81 years-old Female Chest Pain . Acute chest pain COMPARISON: Chest radiograph of same day at 4:55 AM TECHNIQUE: AP view of the chest FINDINGS: Cardiac silhouette is enlarged. Prior median sternotomy with CABG. Atherosclerosis of the aorta. Mild right hemidiaphragmatic elevation. Interstitial coarsening with mild bibasilar densities. No pneumot horax. Possible trace pleural effusions. Degenerative changes of the shoulders and spine. IMPRESSION: 1. Cardiomegaly without overt pulmonary edema. 2. Interstitial coarsening with mild nonspecific bibasilar opacities and possible trace pleural effus ions. ACT 112: Negative or not required by law. The above report was generated using voice recognition software. It may contain grammatical, syntax o r spelling errors. Electronically signed by: Demario Pacheco M.D. 07/30/2022 7:01 AM
--- NOTE | 2022-07-30 07:22 | Emergency Department Note ---
ED Visit Note Endotracheal Intubation Indication: respiratory failure. The patient was on an oxy mask. Suction, airway equipment, RSI drugs, respiratory equipment, and appropriate personnel were prepared prior to the initiation of the procedure. A time out was taken. Induction was performed with 120 mg of IV succinylcholine and 20 mg of IV etomidate. After observing the clinical benefits of the medications, the airway was easily visualized utilizing a glide scope. A 7.5 size ETT tube was placed atraumatically to 20 cm using standard technique. The cuff inflated without signs of malfunction. There were bilateral breath sounds, positive colormetric change, no gastric sounds, and post procedure pulse oximetry was 100%. There were no complications. . : Acute [place] Qualifiers: Myocardial infarction type: ST elevation myocardial infarction Involved coronary artery: unspecified coronary artery Qualified Code(s): I21.3 - ST elevation (STEMI) myocardial infarction of unspecified site Chest pain Qualifiers: Chest pain type: precordial pain Qualified Code(s): R07.2 - Precordial pain
[2022-07-30 07:41] LABS: Hematocrit (blood only) 36.1 % (34.1-44.9); Hemoglobin 12.3 g/dl (12.0-16.0); Mean Corpuscular Hemoglobin 29.5 pg (25.0-34.0); Mean Corpuscular Hgb Conc 34.1 g/dL (32.0-36.0); Mean Corpuscular Volume 86.6 fL (80.0-100.0); Mean Platelet Volume 10.9 fL (9.4-12.3); Platelet Count 213 K/uL (130-400); RDW Coefficient of Variation 15.2 % (11.5-14.5); Red Blood Count 4.17 M/uL (3.93-5.22); White Blood Count 9.05 K/ul (4.8-10.8)
[2022-07-30] MEDS ORDERED: SODIUM CHLORIDE 0.9% 1000ML 500 ML IV ONE ×2 (08:08→09:23)
[2022-07-30 08:11] LABS: Fibrinogen 288 mg/dl (184-400); INR 1.1 (0.9-1.1); Partial Thromboplastin Ratio 4.3; Prothrombin Time 11.4 Seconds (9.0-12.0)
[2022-07-30] MEDS ORDERED: DOBUTamine 500MG / 250ML D5W IV ONE (08:13)
[2022-07-30 08:16] LABS: Partial Thromboplastin Time 119.3 Seconds (21.0-31.0)
[2022-07-30] MEDS: DOBUTamine / D5W 500 MG/250 ML BAG IV SCH (08:18)
[2022-07-30 08:34] LABS: Estimated Average Glucose 128 mg/dl; Hemoglobin A1C 6.1 % (4.5-5.6)
--- NOTE | 2022-07-30 08:57 | XCELERA ---
[id number]
--- NOTE | 2022-07-30 08:59 | Electrocardiogram Report ---
Test Reason : Blood Pressure : / mmHG Vent. Rate : 044 BPM Atrial Rate : 044 BPM P-R Int : 196 ms QRS Dur : 094 ms QT Int : 474 ms P-R-T Axes : 053 058 118 degrees QTc Int : 405 ms Poor data quality, interpretation may be adversely affected Marked sinus bradycardia ST elevation consider inferior injury or acute infarct ACUTE PA / STEMI Consider right ventricular involvement in acute inferior infarct Abnormal ECG When compared with ECG of 24-NOV-2018 10:28, ST elevation now present in Inferior leads ST now depressed in Lateral leads T wave inversion now evident in Lateral leads Confirmed by Jakub Cruz ([id number]) on 07/30/2022 8:59:41 AM Referred By: Amari Valles Confirmed By:Jakub Cruz
[2022-07-30] MEDS ORDERED: PNEUMOCOCCAL POLYSACCHARIDES 25 MCG/0.5 ML VIAL/SYR IM ONE (09:00)
--- NOTE | 2022-07-30 09:05 | Critical Care Progress Note ---
Date of Service July 30, 2022 Assessment & Plan (1) Acute HI: Plan: Reason Critically Ill: 81-year-old female with history of CAD and CABG presents to the ICU in cardiogenic shock requiring dopamine drip and balloon pump, following inferior STEMI and s/p WILBUR x1 to the RCA. Neuro - Sedation: Versed and fentanyl drips Cardiac - STEMI/cardiogenic shockstatus post cardiac cath with WILBUR x1 to the RCA. Prior grafts noted to be patent. -Integrilin infusing. Continue heparin drip -Wean dopamine as tolerated. Maintain maps greater than 65 -Additional vasoactive dobutamine required -Received 500 mL bolus for hypotension -Management of balloon pump per cardiology -Follow-up echo -Continuous hemodynamic monitoring with a line -Continuous monitor on telemetry -ASA, Lipitor, Plavix -Hold antihypertensives in the setting of shock Respiratory - Acute hypoxic respiratory failurelikely mixed etiology in the setting of acute heart failure, cardiogenic shock, and possible aspiration -No prior history of pulmonary disease -Currently mechanically ventilated, weaning FiO2 as indicated. Post intubation chest x-ray and ABG pending -Hold on diuresis for now in the setting of hypotension -Continuous end-tidal CO2 and pulse ox monitoring GI - N.p.o., -OG tube to intermittent low wall suction RENAL/LYTES - Creatinine within normal limits, repleting potassium. Monitor routine BMPs and replete electrolytes as indicated - Foleystrict I's and O's ENDO - No history of diabetes or thyroid disease. ICU hyperglycemic protocol HEME - H&H stable at 0700 ID - Medication for infectious process at this time LINES/IV ACCESS - Peripheral IVs, A-line, balloon pump (right femoral), ET tube DVT PROPHYLAXIS - SCDs, heparin drip (2) Chest pain: (3) Cardiogenic shock: (4) Antiplatelet or antithrombotic long-term use: (5) History of coronary artery bypass graft: (6) Hypertension: (7) Hyperlipidemia: (8) CAD (coronary artery disease): Admission and Anticipated Discharge Date Admission Date: July 30, 2022 Supervising Physician Co-Signing Physician Notes 0900: patient BP declining, additional vasoactive and fluid given. D/W Dr. Valles at bedside. Additional fluid given, no evidence of pulmonary edema at this time. Concern for possible bleeding given vomiting for nara jo tear. 50 mL in NG output at placement. H/H still stable at present time. AB.370/34.5/118/99% HGB: 10.2/30 via abg to bedside, on essentially max dobutamine, max dopamine, vasopressin, epinephrine ordered if continued hypotension, close observation for drop in H&H, heparin had been on hold since supratherapeutic level 1000: patient converted into SVT rates 190's with poor SBP. Discontinued vasoactives as may be driving SVT. Will recheck ABG, doubt rapid blood loss. Cardioversion x2, when rate rate decreased, SBP increased into 60's from 40's. Continued volume expansion, given 2.5 mg metoprolol IV and increased pacer to 90 BPM. updated . Subjective Intubated and sedated Review of Systems Review of Systems: Unobtainable due to endotracheal tube Physical Exam Physical Exam: General: Sedated. nontoxic. Skin: Warm, dry, Head: Ecchymoses of right superior lip. Ears, nose, mouth and throat: airway obscured by endotracheal tube Cardiovascular: 1-1 aortic balloon pump, temporary pacer present: Augustine rhythm Respiratory: Ventilator settings reviewed Gastrointestinal: Non distended Groin/: Sofia catheter present, palpable hematoma present in right groin, no pulsatility, no expansion, no shadowing nor ecchymoses Musculoskeletal: No deformity, right lower extremity in immobilizer secondary to vascular access needs -Right foot warm to touch adequate perfusion and capillary refill Results & Data Results & Data ([facility]) Vital Signs (Past 12 Hours) Vital Signs Temp Pulse Pulse Resp BP BP Pulse Ox 07/30/22 08:30 35.6 C L 121 H 14 86/53 L 100 07/30/22 08:20 35.5 C L 115 H 14 121/53 L 100 07/30/22 08:10 35.4 C L 111 H 16 87/39 L 100 07/30/22 08:04 35.4 C L 122 H 12 83/56 L 100 07/30/22 08:01 35.4 C L 132 H 14 96/45 L 99 07/30/22 07:54 35.3 C L 140 H 21 102/70 99 07/30/22 07:50 35.3 C L 133 H 12 92/46 L 100 07/30/22 07:40 35.2 C L 119 H 14 117/54 L 100 07/30/22 07:30 35.1 C L 126 H 14 106/42 L 100 07/30/22 07:29 35.1 C L 128 H 14 83/57 L 100 07/30/22 07:20 35.1 C L 120 H 0 L 90/41 L 100 07/30/22 07:11 35.0 C L 105 H 16 110/47 L 100 07/30/22 07:00 33.8 C L 104 H 12 80/58 L 100 07/30/22 06:50 34.0 C L 97 H 19 92/42 L 100 07/30/22 08:33 117 H 14 100 07/30/22 06:10 33.8 C L 74 17 100 07/30/22 06:10 96/58 L 07/30/22 06:06 105/61 07/30/22 06:06 33.7 C L 74 15 100 07/30/22 06:00 85/51 L 07/30/22 05:50 33.7 C L 72 16 100 07/30/22 05:50 112/62 07/30/22 05:40 33.7 C L 74 16 100 07/30/22 05:40 98/41 L 07/30/22 05:31 98/40 L 07/30/22 05:30 33.7 C L 72 14 100 07/30/22 06:02 07/30/22 05:34 85 18 99 07/30/22 05:21 83/44 L 07/30/22 05:10 33.6 C L 72 14 99 07/30/22 05:10 119/48 L 07/30/22 05:00 33.5 C L 68 16 99 07/30/22 05:00 105/60 07/30/22 04:50 96/67 L 07/30/22 04:41 85/62 L 07/30/22 04:31 112/47 L 07/30/22 04:20 121/57 L 07/30/22 04:11 107/66 07/30/22 04:10 70 14 95 07/30/22 04:01 144/85 H 07/30/22 04:00 70 24 96 07/30/22 03:50 89/41 L 07/30/22 03:41 87/49 L 07/30/22 03:30 70 18 96 07/30/22 03:30 144/77 H 07/30/22 03:23 130/54 L 07/30/22 03:20 70 14 93 07/30/22 01:20 56 L 23 07/30/22 01:15 77/47 L 07/30/22 01:15 61 17 95 07/30/22 01:13 53 L 21 97 07/30/22 01:13 72/43 L 07/30/22 01:10 63 19 98 07/30/22 03:50 07/30/22 03:50 70 16 07/30/22 01:15 57 L 20 77/47 L 97 07/30/22 01:16 96 07/30/22 01:15 96 07/30/22 01:09 37 C 43 L 16 89/53 L 98 O2 Del Method O2 Flow Rate FiO2 07/30/22 08:30 Mechanical Vent 50 07/30/22 08:20 Mechanical Vent 50 07/30/22 08:10 Mechanical Vent 50 07/30/22 08:04 Mechanical Vent 50 07/30/22 08:01 Mechanical Vent 50 07/30/22 07:54 Mechanical Vent 50 07/30/22 07:50 Mechanical Vent 50 07/30/22 07:40 Mechanical Vent 50 07/30/22 07:30 Mechanical Vent 50 07/30/22 07:29 Mechanical Vent 50 07/30/22 07:20 Mechanical Vent 50 07/30/22 07:11 Mechanical Vent 50 07/30/22 07:00 Mechanical Vent 50 07/30/22 06:50 Mechanical Vent 50 07/30/22 08:33 50 07/30/22 06:10 07/30/22 06:10 07/30/22 06:06 07/30/22 06:06 07/30/22 06:00 07/30/22 05:50 07/30/22 05:50 07/30/22 05:40 07/30/22 05:40 07/30/22 05:31 07/30/22 05:30 07/30/22 06:02 50 07/30/22 05:34 50 07/30/22 05:21 07/30/22 05:10 07/30/22 05:10 07/30/22 05:00 07/30/22 05:00 07/30/22 04:50 07/30/22 04:41 07/30/22 04:31 07/30/22 04:20 07/30/22 04:11 07/30/22 04:10 07/30/22 04:01 07/30/22 04:00 07/30/22 03:50 07/30/22 03:41 07/30/22 03:30 07/30/22 03:30 07/30/22 03:23 07/30/22 03:20 07/30/22 01:20 07/30/22 01:15 07/30/22 01:15 07/30/22 01:13 07/30/22 01:13 07/30/22 01:10 07/30/22 03:50 Mechanical Vent 50 07/30/22 03:50 Mechanical Vent 50 07/30/22 01:15 Nasal Cannula 3 07/30/22 01:16 Nasal Cannula 3 07/30/22 01:15 Room Air 3 07/30/22 01:09 Nasal Cannula 3 Critical Care Results & Data Vital Signs (Past 12 Hours) Vital Signs Temp Pulse Pulse Resp BP BP Pulse Ox 07/30/22 08:30 35.6 C L 121 H 14 86/53 L 100 07/30/22 08:20 35.5 C L 115 H 14 121/53 L 100 07/30/22 08:10 35.4 C L 111 H 16 87/39 L 100 07/30/22 08:04 35.4 C L 122 H 12 83/56 L 100 07/30/22 08:01 35.4 C L 132 H 14 96/45 L 99 07/30/22 07:54 35.3 C L 140 H 21 102/70 99 07/30/22 07:50 35.3 C L 133 H 12 92/46 L 100 07/30/22 07:40 35.2 C L 119 H 14 117/54 L 100 07/30/22 07:30 35.1 C L 126 H 14 106/42 L 100 07/30/22 07:29 35.1 C L 128 H 14 83/57 L 100 07/30/22 07:20 35.1 C L 120 H 0 L 90/41 L 100 07/30/22 07:11 35.0 C L 105 H 16 110/47 L 100 07/30/22 07:00 33.8 C L 104 H 12 80/58 L 100 07/30/22 06:50 34.0 C L 97 H 19 92/42 L 100 07/30/22 08:33 117 H 14 100 07/30/22 06:10 33.8 C L 74 17 100 07/30/22 06:10 96/58 L 07/30/22 06:06 105/61 07/30/22 06:06 33.7 C L 74 15 100 07/30/22 06:00 85/51 L 07/30/22 05:50 33.7 C L 72 16 100 07/30/22 05:50 112/62 07/30/22 05:40 33.7 C L 74 16 100 07/30/22 05:40 98/41 L 07/30/22 05:31 98/40 L 07/30/22 05:30 33.7 C L 72 14 100 07/30/22 06:02 07/30/22 05:34 85 18 99 07/30/22 05:21 83/44 L 07/30/22 05:10 33.6 C L 72 14 99 07/30/22 05:10 119/48 L 07/30/22 05:00 33.5 C L 68 16 99 07/30/22 05:00 105/60 07/30/22 04:50 96/67 L 07/30/22 04:41 85/62 L 07/30/22 04:31 112/47 L 07/30/22 04:20 121/57 L 07/30/22 04:11 107/66 07/30/22 04:10 70 14 95 07/30/22 04:01 144/85 H 07/30/22 04:00 70 24 96 07/30/22 03:50 89/41 L 07/30/22 03:41 87/49 L 07/30/22 03:30 70 18 96 07/30/22 03:30 144/77 H 07/30/22 03:23 130/54 L 07/30/22 03:20 70 14 93 07/30/22 01:20 56 L 23 07/30/22 01:15 77/47 L 07/30/22 01:15 61 17 95 07/30/22 01:13 53 L 21 97 07/30/22 01:13 72/43 L 07/30/22 01:10 63 19 98 07/30/22 03:50 07/30/22 03:50 70 16 07/30/22 01:15 57 L 20 77/47 L 97 07/30/22 01:16 96 07/30/22 01:15 96 07/30/22 01:09 37 C 43 L 16 89/53 L 98 O2 Del Method O2 Flow Rate FiO2 07/30/22 08:30 Mechanical Vent 50 07/30/22 08:20 Mechanical Vent 50 07/30/22 08:10 Mechanical Vent 50 07/30/22 08:04 Mechanical Vent 50 07/30/22 08:01 Mechanical Vent 50 07/30/22 07:54 Mechanical Vent 50 07/30/22 07:50 Mechanical Vent 50 07/30/22 07:40 Mechanical Vent 50 07/30/22 07:30 Mechanical Vent 50 07/30/22 07:29 Mechanical Vent 50 07/30/22 07:20 Mechanical Vent 50 07/30/22 07:11 Mechanical Vent 50 07/30/22 07:00 Mechanical Vent 50 07/30/22 06:50 Mechanical Vent 50 07/30/22 08:33 50 07/30/22 06:10 07/30/22 06:10 07/30/22 06:06 07/30/22 06:06 07/30/22 06:00 07/30/22 05:50 07/30/22 05:50 07/30/22 05:40 07/30/22 05:40 07/30/22 05:31 07/30/22 05:30 07/30/22 06:02 50 07/30/22 05:34 50 07/30/22 05:21 07/30/22 05:10 07/30/22 05:10 07/30/22 05:00 07/30/22 05:00 07/30/22 04:50 07/30/22 04:41 07/30/22 04:31 07/30/22 04:20 07/30/22 04:11 07/30/22 04:10 07/30/22 04:01 07/30/22 04:00 07/30/22 03:50 07/30/22 03:41 07/30/22 03:30 07/30/22 03:30 07/30/22 03:23 07/30/22 03:20 07/30/22 01:20 07/30/22 01:15 07/30/22 01:15 07/30/22 01:13 07/30/22 01:13 07/30/22 01:10 07/30/22 03:50 Mechanical Vent 50 07/30/22 03:50 Mechanical Vent 50 07/30/22 01:15 Nasal Cannula 3 07/30/22 01:16 Nasal Cannula 3 07/30/22 01:15 Room Air 3 07/30/22 01:09 Nasal Cannula 3 Lab & Micro Results (Past 24 Hours) RBC 4.17 M/uL (3.93-5.22) 07/30/22 WBC 9.05 K/ul (4.8-10.8) 07/30/22 Hgb 12.3 g/dl (12.0-16.0) 07/30/22 Hct 36.1 % (34.1-44.9) 07/30/22 MCV 86.6 fL (80.0-100.0) 07/30/22 MCH 29.5 pg (25.0-34.0) 07/30/22 MCHC 34.1 g/dL (32.0-36.0) 07/30/22 RDW Standard Deviation 48.0 fL (36.4-46.3) H 07/30/22 RDW Coefficient of Variation 15.2 % (11.5-14.5) H 07/30/22 Plt Count 213 K/uL (130-400) 07/30/22 MPV 10.9 fL (9.4-12.3) 07/30/22 Neutrophils (%) (Auto) 84.2 % 07/30/22 Lymphocytes (%) (Auto) 9.2 % 07/30/22 Monocytes # (Auto) 0.47 K/uL (0.24-0.82) 07/30/22 Eosinophils # (Auto) 0.02 K/uL (0-0.50) 07/30/22 Immature Granulocyte % (Auto) 0.5 % 07/30/22 Neutrophils # (Auto) 7.17 K/uL (1.4-6.5) H 07/30/22 Lymphocytes # (Auto) 0.78 K/uL (1.2-3.4) L 07/30/22 Monocytes # (Auto) 0.47 K/uL (0.24-0.82) 07/30/22 Eosinophils # (Auto) 0.02 K/uL (0-0.50) 07/30/22 Basophils # (Auto) 0.03 K/uL (0-0.2) 07/30/22 Immature Granulocyte # (Auto) 0.04 K/uL (0.00-0.02) H 07/30 Na 138 mmol/L (136-145) 07/30/22 K 3.1 mmol/L (3.5-5.1) L 07/30/22 Cl 105 mmol/L (98-107) 07/30/22 CO2 23 mmol/L (21-32) 07/30/22 Anion Gap 10 (3-11) 07/30/22 BUN 21 mg/dl (6-23) 07/30/22 Creatinine 1.15 mg/dl (0.6-1.2) 07/30/22 Estimated GFR ( Amer) 51.3 ml/min 07/30/22 Estimated GFR (Non-Af Amer) 44.3 ml/min 07/30/22 BUN/Creatinine Ratio 18.3 (10-20) 07/30/22 Glu 160 mg/dl (70-99(Fasting)) H 07/30/22 Ca 8.6 mg/dl (8.5-10.1) 07/30/22 Phosphorus Level 2.1 mg/dl (2.5-4.9) L 07/30/22 Total Bilirubin 0.9 mg/dl (0.2-1.0) 07/30/22 AST 18 U/L (13-39) 07/30/22 ALT 17 U/L (7-52) 07/30/22 Alkaline Phosphatase 40 U/L (34-104) 07/30/22 TP 6.7 gm/dl (6.0-8.3) 07/30/22 Albumin 3.8 gm/dl (3.4-5.0) 07/30/22 Globulin 2.9 gm/dl (2.5-4.0) 07/30/22 Albumin/Globulin Ratio 1.3 (0.9-2) 07/30/22 Mg 2.0 mg/dl (1.7-2.4) 07/30/22 05:39 Calcium Level 8.6 mg/dl (8.5-10.1) 07/30/22 01:12 Prothromb Time International Ratio 1.1 (0.9-1.1) 07/30/22 07:2 1 Miguelangel Test NA 07/30/22 09:19 Diagnostic Findings (Past 24 Hours) Chest X-Ray 07/30/22 01:08 XR chest 1V portable HISTORY: 81 years-old Female Chest Pain . Acute chest pain COMPARISON: Chest radiograph of same day at 4:55 AM TECHNIQUE: AP view of the chest FINDINGS: Cardiac silhouette is enlarged. Prior median sternotomy with CABG. Atherosclerosis of the aorta. Mild right hemidiaphragmatic elevation. Interstitial coarsening with mild bibasilar densities. No pneumothorax. Possible trace pleural effusions. Degenerative changes of the shoulders and spine. IMPRESSION: 1. Cardiomegaly without overt pulmonary edema. 2. Interstitial coarsening with mild nonspecific bibasilar opacities and possible trace pleural effusions. ACT 112: Negative or not required by law. The above report was generated using voice recognition software. It may contain grammatical, syntax or spelling errors. Electronically signed by: Demario Pacheco M.D. 07/30/2022 7:01 AM Chest X-Ray 07/30/22 04:29 XR chest 1V portable CLINICAL HISTORY: intubation COMPARISON STUDY: Chest radiograph July 30, 2022 at 1:07 AM. FINDINGS: Tip of endotracheal tube is 5 mm above the estee. No pneumothorax is present. There is a probable trace left pleural fusion. Mild left basilar opacity is noted. Interstitial thickening and patchy right lung airspace opacities are present. Cardiomediastinal silhouette is stable. There are median sternotomy wires and mediastinal surgical clips. IMPRESSION: 1. Tip of endotracheal tube 5 mm above the estee. The tube could be withdrawn 2 cm. 2. Interstitial thickening with patchy right lung airspace opacities. The findings favor pulmonary edema. 3. Trace left pleural effusion with left basilar opacity which could reflect consolidation or atelectasis. ACT 112: Negative or not required by law. Electronically signed by: Ross Call M.D. 07/30/2022 6:44 AM I & O Totals 24 Hours 07/29/22 07/30/22 07/31/22 06:59 06:59 06:59 Intake Total 96.927 / 96.927 295.176 / 295.176 Output Total 1550 / 1550 195 / 195 Balance -1453.073 / -1453.073 100.176 / 100.176 Cumulative 07/30/22 00:52 thru 07/30/22 08:50 Intake Total 392.103 Output Total 1745 Balance -1352.897 RT Ventilator Mngmt (Last Documented) Ventilator Ordered Settings Ventilator Support Mode Assist Control 07/30/22 08:33 Respiratory Rate 14 07/30/22 08:33 Ventilator Tidal Volume 400 07/30/22 08:33 Setting Minute Ventilation 6 07/30/22 05:34 Positive End Expiratory 8 07/30/22 08:33 Pressure Fraction of Inspired Oxygen 50 07/30/22 08:33 Ventilator - PT Measurements Respiratory Rate 14 Exhaled Tidal Volume 399 Minute Ventilation 6 Peak Inspiratory Airway 19 Pressure Plateau Pressure 14 Respiratory Cycle Inspiratory: 1:3.3 Expiratory Ratio Inspiratory Phase Time 1 Static Lung Compliance 66.50 Dynamic Lung Compliance 36.27 Normal Static Lung Compliance 48.00 Patient Measurements Comment pt [facility] Coding Level of Care Code Critical Care ea addt'l 30 min Diagnoses Acute HI I21.3 Involved coronary artery: unspecified coronary artery Myocardial infarction type: ST elevation myocardial infarction Chest pain R07.2 Chest pain type: precordial pain Cardiogenic shock R57.0 Antiplatelet or antithrombotic long-term use Z79.02 History of coronary artery bypass graft Z95.1 Hypertension I10 Hyperlipidemia E78.5 CAD (coronary artery disease) I25.10 Time Spent (min) 95 (1) Acute [place] Involved coronary artery: unspecified coronary artery Myocardial infarction type: ST elevation myocardial infarction Qualified Code(s): I21.3 - ST elevation (STEMI) myocardial infarction of unspecified site (2) Chest pain Chest pain type: precordial pain Qualified Code(s): R07.2 - Precordial pain
--- NOTE | 2022-07-30 09:12 | XRay Report ---
XR chest 1V portable HISTORY: 81 years-old Female NG placement acute respiratory failure. Status post placement of an ent maximo tube COMPARISON: Chest radiograph of same day at 4:55 AM TECHNIQUE: Supine AP view of the chest FINDINGS: Cardiac mediastinal and hilar silhouettes are unchanged. Prior median sternotomy with CABG. A lead pr ojects over the IVC and right atrium. Endotracheal tube overlies the midline, 9 mm superior to the ca sandra. Status post placement of an enteric tube with distal tip projected over the gastric body. No pn eumothorax. Interstitial coarsening with mild patchy right lung airspace opacities. Trace pleural eff usions. Degenerative changes of the shoulders and spine. IMPRESSION: 1. Lines and tubes as above. 2. Interstitial coarsening with mild right lung base opacities are unchanged suggestive of probable a symmetric pulmonary edema. 3. Trace pleural effusions. ACT 112: Negative or not required by law. The above report was generated using voice recognition software. It may contain grammatical, syntax o r spelling errors. Electronically signed by: Demario Pacheco M.D. 07/30/2022 9:11 AM
[2022-07-30] MEDS: VASOPRESSIN 20 UNITS in 0.9 % SODIUM CHLORIDE 100 ML IV SCH ×2 (09:16→15:31)
[2022-07-30] MEDS: ASPIRIN 325 MG ECTAB PO SCH (09:18)
[2022-07-30] MEDS: ATORVASTATIN 40 MG TAB PO SCH (09:18)
[2022-07-30] MEDS: CLOPIDOGREL BISULFATE 75 MG TAB PO SCH (09:18)
[2022-07-30] MEDS: EPINEPHrine/NSS 4 MG/254 ML BAG IV SCH ×3 (09:21→22:23)
[2022-07-30] MEDS ORDERED: SODIUM CHLORIDE 0.9% 250 ML IV PRN ×3 (09:26→10:39)
[2022-07-30 09:34] LABS: iSTAT Art Bld Gas pCO2 Correct 33 mmHg (35-46); iSTAT Art Bld Gas pH Corrected 7.388 (7.35-7.45); iSTAT Arterial Blood Gas HCO3 20 meg/L (19-24); iSTAT Arterial Blood Gas pCO2 35 mmHg (35-46); iSTAT Arterial Blood Gas pH 7.37 (7.35-7.45); iSTAT Arterial Blood Gas pO2 118 mmHg (80-95); iSTAT Arterial Blood Gas pO2 C 110; iSTAT Carbon Dioxide 21 mmol/L (24-31); iSTAT FiO2 50 %; iSTAT Hematocrit 30 % (37-47); iSTAT Hemoglobin 10.2 g/dl (12.0-16.0); iSTAT Potassium 3.9 mmol/L (3.3-5.0); iSTAT Site Art Line; iSTAT Sodium 140 mmol/L (135-144)
[2022-07-30] MEDS ORDERED: SODIUM CHLORIDE 0.9% 1000ML 1,000 ML IV ONE (09:45)
[2022-07-30] MEDS ORDERED: ADENOSINE IV SOLN 3 MG/ML 2 ML VIAL IV STA (09:45)
[2022-07-30] MEDS ORDERED: PHENYLEPHRINE (STAT use only) 10MG in D5W 250 ML IV STA (09:54)
[2022-07-30] MEDS: fentaNYL BOLUS from BAG IV PRN (09:57)
[2022-07-30 10:02] LABS: Partial Thromboplastin Ratio 2.2
[2022-07-30] MEDS: PHENYLEPHRINE HCL 20 MG in DEXTROSE 5% 500 ML IV SCH ×2 (10:02→10:19)
--- NOTE | 2022-07-30 10:14 | Communication Note ---
Date of Service: July 30, 2022 10:10 ABG h/h 8.2/24, will transfuse 1 Unit PRBC, repeat formal cbc pending, heparin has been off. Continue vasopressin and phenylephrine for increased SVR given IABP. - anemia confirmed with formal labs, will give 2 units for goal HGB of 10 1300, signficantly improved hemodynamics. Off dopaime, dobutamine, epi, to decrease arrhythmia risk hopefully will decrease phenylephrine. 15:00 updated family, D/W Dr. Velasco, decreasing phenylephrine Coding Level of Care Code Critical Care ea addt'l 30 min Time Spent (min) 45
[2022-07-30 10:15] LABS: Partial Thromboplastin Time 60.2 Seconds (21.0-31.0)
[2022-07-30 10:21] LABS: iSTAT Art Bld Gas pCO2 Correct 32 mmHg (35-46); iSTAT Art Bld Gas pH Corrected 7.344 (7.35-7.45); iSTAT Arterial Blood Gas HCO3 18 meg/L (19-24); iSTAT Arterial Blood Gas pCO2 34 mmHg (35-46); iSTAT Arterial Blood Gas pH 7.32 (7.35-7.45); iSTAT Arterial Blood Gas pO2 121 mmHg (80-95); iSTAT Arterial Blood Gas pO2 C 112; iSTAT Carbon Dioxide 19 mmol/L (24-31); iSTAT FiO2 50 %; iSTAT Hematocrit 24 % (37-47); iSTAT Hemoglobin 8.2 g/dl (12.0-16.0); iSTAT Potassium 3.3 mmol/L (3.3-5.0); iSTAT Site Art Line; iSTAT Sodium 138 mmol/L (135-144)
[2022-07-30 10:35] LABS: Hemoglobin 8.5 g/dl (12.0-16.0); Mean Corpuscular Hemoglobin 30.2 pg (25.0-34.0); Mean Platelet Volume 10.9 fL (9.4-12.3); Platelet Count 167 K/uL (130-400); RDW Coefficient of Variation 15.2 % (11.5-14.5); RDW Standard Deviation 49.7 fL (36.4-46.3); Red Blood Count 2.81 M/uL (3.93-5.22); White Blood Count 10.85 K/ul (4.8-10.8)
[2022-07-30 10:55] LABS: BUN Creatinine Ratio 17.5 (10-20); Calcium 6.1 mg/dl (8.5-10.1); Creatinine Clr Calc Pharmacy 32.8 ml/min; Est GFR (African American) 45.9 ml/min; Est GFR (Non-African American) 39.6 ml/min; Magnesium 1.7 mg/dl (1.7-2.4); Phosphorus 2.7 mg/dl (2.5-4.9); Potassium 3.2 mmol/L (3.5-5.1)
[2022-07-30 10:58] LABS: Basophils # (auto) 0.03 K/uL (0-0.2); Basophils % (auto) 0.3 %; Eosinophils # (auto) 0.01 K/uL (0-0.50); Eosinophils % (auto) 0.1 %; Immature Granulocytes # (auto) 0.05 K/uL (0.00-0.02); Immature Granulocytes % (auto) 0.5 %; Lymphocytes # (auto) 1.21 K/uL (1.2-3.4); Lymphocytes % (auto) 11.2 %; Monocytes % (auto) 8.3 %; Neutrophils # (auto) 8.65 K/uL (1.4-6.5); Neutrophils % (auto) 79.6 %
[2022-07-30] MEDS: PHENYLEPHRINE HCL 80 MG in DEXTROSE 5% 500 ML IV SCH ×5 (11:08→21:59)
[2022-07-30 12:59] LABS: Hematocrit (blood only) 27.3 % (34.1-44.9); Hemoglobin 9.3 g/dl (12.0-16.0)
[2022-07-30] MEDS: MAGNESIUM SULFATE / D5W 1 GM/100 ML BAG IV SCH ×2 (13:36→15:28)
[2022-07-30] MEDS ORDERED: INSULIN PROTOCOL GOAL RANGE ONE (13:56)
[2022-07-30] MEDS ORDERED: INSULIN REGULAR 250 UNITS in SODIUM CHLORIDE 0.9% 247.5 ML IV SCH (14:00)
[2022-07-30] MEDS ORDERED: GLUCAGON FOR INJ 1 MG VIAL IM PRN (14:00)
[2022-07-30] MEDS ORDERED: GLUCOSE 40% GEL 15 GM TUBE PO PRN (14:00)
[2022-07-30] MEDS ORDERED: GLUCOSE 10 TAB/TUBE PO PRN (14:00)
[2022-07-30] MEDS ORDERED: DEXTROSE 50% 50 ML SYRINGE IV PRN (14:00)
[2022-07-30] MEDS ORDERED: CARBOHYDRATES FOR HYPOGLYCEMIA PO PRN (14:00)
[2022-07-30] MEDS ORDERED: NovoLIN-R BOLUS FROM BAG IV ONE (14:00)
--- NOTE | 2022-07-30 14:29 | Pharmacy Report ---
Pharmacy Glycemic Short Note 2 - Date of Service July 30, 2022 - Glycemic Short BSG Results (Last 24 hours): 07/30/22 07/30/22 07/30/22 01:12 10:08 12:44 Glucose 160 H 326 H* 354 H* OUTPATIENT ANTIDIABETIC REGIMEN: * n/a * a1C 6.1% ASSESSMENT: * Patient admitted with STEMI, post [employer] WILBUR x1 placed, history of previous CABG * Patient not on any antidiabetes medications at home, A1c 6.1%, significant stressors, intubated with balloon pump, currently on phenylephrine/vasopressin * BSG elevated on labs, potentially d/t stress, repeat elevated, will begin insulin infusion PLAN FOR INPATIENT GLYCEMIC CONTROL: * Start IV insulin infusion per severe stress protocol * Goal Range 110 - 180 mg/dl * In the critical care setting, continuous IV insulin infusion has been shown to be the best method for achieving glycemic targets.
[2022-07-30] MEDS ORDERED: PHARMACY GLYCEMIC MGMT CONSULT PRN (14:33)
[2022-07-30] MEDS ORDERED: METOPROLOL TARTRATE 1 MG/ML VIAL IV ONE (15:29)
[2022-07-30] MEDS ORDERED: SUCCINYLCHOLINE CHLORIDE 20 MG/ML 10 ML VIAL IV ONE (15:29)
[2022-07-30] MEDS ORDERED: ETOMIDATE 2 MG/ML 20 ML VIAL IV ONE (15:29)
[2022-07-30] MEDS ORDERED: ADENOSINE IV SOLN 3 MG/ML 2 ML VIAL IV ONE (15:29)
[2022-07-30] MEDS ORDERED: SODIUM CHLORIDE 0.9% 10ML FLUSH IV ONE (15:29)
[2022-07-30] MEDS: INSULIN ASPART PER UNIT SC SCH ×2 (16:45→19:44)
[2022-07-30] MEDS ORDERED: ACETAMINOPHEN 1,000 MG/100 ML VIAL IV PRN (17:50)
--- NOTE | 2022-07-30 18:10 | Communication Note ---
Date of Service: July 30, 2022 Seen in follow-up from same-day admission. Appreciate ICU and cardiology management. Family present at the bedside, offered support. Otherwise as per ICU and per H&P.
[2022-07-30 19:45] LABS: Hematocrit (blood only) 35.1 % (34.1-44.9); Hemoglobin 11.9 g/dl (12.0-16.0)
[2022-07-30] MEDS: NORMOSOL-R 1,000 ML IV SCH (19:45)
[2022-07-30 20:09] LABS: BUN Creatinine Ratio 12.7 (10-20); Calcium 6.5 mg/dl (8.5-10.1); Creatinine Clr Calc Pharmacy 25.1 ml/min; Est GFR (African American) 33.2 ml/min; Est GFR (Non-African American) 28.6 ml/min; Potassium 3.4 mmol/L (3.5-5.1)
[2022-07-31] MEDS: VASOPRESSIN 20 UNITS in 0.9 % SODIUM CHLORIDE 100 ML IV SCH (00:31)
[2022-07-31] MEDS: PHENYLEPHRINE HCL 80 MG in SODIUM CHLORIDE 0.9% 500 ML IV SCH ×5 (00:55→19:50)
[2022-07-31] MEDS: POTASSIUM CHLORIDE / WTR 20 MEQ/100 ML PLCT IV SCH ×3 (00:55→04:46)
[2022-07-31 01:19] LABS: Hematocrit (blood only) 33.2 % (34.1-44.9); Hemoglobin 11.4 g/dl (12.0-16.0)
[2022-07-31] MEDS: PHENYLEPHRINE HCL 80 MG in DEXTROSE 5% 500 ML IV SCH (01:40)
[2022-07-31] MEDS: MIDAZOLAM BOLUS FROM BAG IV PRN ×5 (02:59→23:07)
[2022-07-31] MEDS: fentaNYL BOLUS from BAG IV PRN ×4 (03:42→23:06)
[2022-07-31 04:41] LABS: iSTAT Art Bld Gas pCO2 Correct 34 mmHg (35-46); iSTAT Arterial Blood Gas HCO3 19 meg/L (19-24); iSTAT Arterial Blood Gas pCO2 33 mmHg (35-46); iSTAT Arterial Blood Gas pH 7.37 (7.35-7.45); iSTAT Arterial Blood Gas pO2 80 mmHg (80-95); iSTAT Arterial Blood Gas pO2 C 84; iSTAT Carbon Dioxide 20 mmol/L (24-31); iSTAT FiO2 50 %; iSTAT Hematocrit 32 % (37-47); iSTAT Hemoglobin 10.9 g/dl (12.0-16.0); iSTAT Potassium 4.8 mmol/L (3.3-5.0); iSTAT Site Art Line; iSTAT Sodium 129 mmol/L (135-144)
[2022-07-31 04:43] LABS: Basophils # (auto) 0.01 K/uL (0-0.2); Basophils % (auto) 0.1 %; Eosinophils # (auto) 0.01 K/uL (0-0.50); Eosinophils % (auto) 0.1 %; Hematocrit (blood only) 24.4 % (34.1-44.9); Hemoglobin 8.3 g/dl (12.0-16.0); Immature Granulocytes # (auto) 0.03 K/uL (0.00-0.02); Immature Granulocytes % (auto) 0.4 %; Lymphocytes # (auto) 1.19 K/uL (1.2-3.4); Lymphocytes % (auto) 16.4 %; Mean Corpuscular Hemoglobin 29.6 pg (25.0-34.0); Mean Corpuscular Volume 87.1 fL (80.0-100.0); Monocytes # (auto) 0.62 K/uL (0.24-0.82); Monocytes % (auto) 8.6 %; Neutrophils # (auto) 5.38 K/uL (1.4-6.5); Neutrophils % (auto) 74.4 %; Platelet Count 104 K/uL (130-400); Platelet Estimate Decreased (Normal); RDW Coefficient of Variation 15.6 % (11.5-14.5); RDW Standard Deviation 49.9 fL (36.4-46.3); White Blood Count 7.24 K/ul (4.8-10.8)
[2022-07-31 04:52] LABS: BUN Creatinine Ratio 14.7 (10-20); Calcium 6.2 mg/dl (8.5-10.1); Creatinine Clr Calc Pharmacy 32.1 ml/min; Est GFR (African American) 44.7 ml/min; Est GFR (Non-African American) 38.5 ml/min; Phosphorus 3.3 mg/dl (2.5-4.9); Potassium 4.6 mmol/L (3.5-5.1)
[2022-07-31] MEDS: EPINEPHrine/NSS 4 MG/254 ML BAG IV SCH ×2 (05:08→10:52)
[2022-07-31] MEDS ORDERED: SODIUM CHLORIDE 0.9% 250 ML IV PRN (05:23)
[2022-07-31] MEDS: NORMOSOL-R 1,000 ML IV SCH ×2 (06:10→15:11)
[2022-07-31] MEDS: INSULIN ASPART PER UNIT SC SCH ×5 (07:56→20:10)
--- NOTE | 2022-07-31 08:16 | Critical Care Progress Note ---
Date of Service July 31, 2022 Assessment & Plan (1) Acute GA: Plan: Reason Critically Ill: 81-year-old female with history of CAD and CABG presents to the ICU in cardiogenic shock requiring dopamine drip and balloon pump, following inferior STEMI and s/p WILBUR x1 to the RCA. Neuro - Sedation: Versed and fentanyl drips Cardiac - STEMI/cardiogenic shockstatus post cardiac cath with WILBUR x1 to the RCA. Prior grafts noted to be patent. - Off heparin drip -Weaning off phenylephrine -Discontinue balloon pump today -Continuous hemodynamic monitoring with a line -Continuous monitor on telemetry -Lipitor, Plavix -Hold antihypertensives in the setting of shock -81 mg chewable aspirin Respiratory - Acute hypoxic respiratory failurelikely mixed etiology in the setting of acute heart failure, cardiogenic shock, and possible aspiration -No prior history of pulmonary disease -Continuous end-tidal CO2 and pulse ox monitoring GI - N.p.o., -OG tube to intermittent low wall suction Cannot exclude Ana-Sutton tear or GI losses -PPI infusion at this time RENAL/LYTES - Acute kidney injury: Improving -Close observation may require CTA to exclude retroperitoneal bleed Hypocalcemia -1 g calcium gluconate - Foleystrict I's and O's ENDO - Continue ICU hyperglycemia protocol -Insulin infusion on hold HEME - Acute blood loss anemia -Unclear source, possible RP etiology -Continue every 6 H&H -If patient requires additional blood products will proceed with CTA to exclude retroperitoneal source ID - Medication for infectious process at this time LINES/IV ACCESS - Peripheral IVs, A-line, balloon pump (right femoral), ET tube DVT PROPHYLAXIS - SCDs, chemical prophylaxis contraindicated in ongoing blood loss (2) Chest pain: (3) Cardiogenic shock: (4) Antiplatelet or antithrombotic long-term use: (5) History of coronary artery bypass graft: (6) Hypertension: (7) Hyperlipidemia: (8) CAD (coronary artery disease): Admission and Anticipated Discharge Date Admission Date: July 30, 2022 Supervising Physician Co-Signing Physician Notes I have personally spent 45 minutes of critical care time in the direct management of this patient. This is a life/limb threatening event. This includes time spent evaluating patient, direct bedside care, chart review, placing orders, interpretation of diagnostic studies, discussion with consultants, patient, and/or family members regarding treatment decisions, as well as other required patient management activities. This time is exclusive of all separately billable procedures, and teaching time and separate from and in addition to any other critical care service time. Subjective Intubated and sedated Review of Systems Review of Systems: Unobtainable due to endotracheal tube Physical Exam Physical Exam: General: Sedated. nontoxic. Skin: Warm, dry, Head: Ecchymoses of right superior lip, appearance of ecchymoses of tongue: no significant swelling Ears, nose, mouth and throat: airway obscured by endotracheal tube Cardiovascular: 1-1 aortic balloon pump, temporary pacer present Respiratory: Ventilator settings reviewed Gastrointestinal: Non distended Groin/: Sofia catheter present, palpable hematoma present in right groin, no pulsatility, no expansion, no shadowing nor ecchymoses, no significant change Musculoskeletal: No deformity, right lower extremity in immobilizer secondary to vascular access needs -Right foot warm to touch adequate perfusion and capillary refill Results & Data Results & Data ([facility]) Vital Signs (Past 12 Hours) Vital Signs Temp Pulse Pulse Pulse Resp BP BP 07/31/22 08:07 89 135/76 07/31/22 07:39 89 16 07/31/22 07:10 37.5 C 89 17 106/44 L 07/31/22 07:00 89 07/31/22 07:00 07/31/22 07:00 89 124/69 07/31/22 07:15 37.5 C 90 13 07/31/22 07:00 37.5 C 90 14 07/31/22 07:00 124/69 07/31/22 06:45 37.5 C 89 14 07/31/22 06:45 127/72 07/31/22 06:30 37.5 C 90 15 07/31/22 06:30 139/67 07/31/22 06:15 37.5 C 90 15 07/31/22 06:15 117/68 07/31/22 06:01 117/60 07/31/22 06:01 37.5 C 89 14 07/31/22 06:00 37.5 C 90 14 07/31/22 05:45 37.5 C 89 14 07/31/22 05:45 119/62 07/31/22 05:30 37.5 C 90 14 07/31/22 05:30 117/65 07/31/22 05:15 37.5 C 89 15 07/31/22 05:15 130/69 07/31/22 06:00 90 124/69 07/31/22 06:40 37.5 C 90 15 124/36 L 07/31/22 06:25 37.5 C 90 15 130/40 L 07/31/22 06:06 37.5 C 90 15 109/30 L 07/31/22 05:00 37.6 C H 89 15 07/31/22 05:00 130/74 07/31/22 04:46 37.6 C H 90 15 07/31/22 04:46 125/66 07/31/22 04:45 37.6 C H 90 15 07/31/22 04:30 37.6 C H 89 15 07/31/22 04:30 93/63 L 07/31/22 04:15 37.6 C H 89 14 07/31/22 04:15 123/67 07/31/22 04:00 37.7 C H 90 14 07/31/22 04:00 119/64 07/31/22 03:45 37.7 C H 89 14 07/31/22 03:45 112/64 07/31/22 03:30 37.7 C H 89 14 07/31/22 03:30 128/62 07/31/22 03:15 37.7 C H 89 14 07/31/22 03:15 132/62 07/31/22 05:00 90 07/31/22 04:00 90 07/31/22 04:00 07/31/22 04:00 90 114/35 L 07/31/22 03:10 89 16 07/31/22 03:00 37.7 C H 89 14 07/31/22 03:00 120/64 07/31/22 02:45 37.7 C H 89 14 07/31/22 02:45 135/67 07/31/22 02:30 37.8 C H 90 14 07/31/22 02:30 137/69 07/31/22 02:15 37.8 C H 89 14 07/31/22 02:15 139/69 07/31/22 02:00 37.8 C H 90 14 07/31/22 02:00 139/69 07/31/22 01:45 37.8 C H 90 14 07/31/22 01:45 145/73 H 07/31/22 01:30 37.9 C H 89 14 07/31/22 01:30 146/71 H 07/31/22 01:15 37.9 C H 89 14 07/31/22 01:15 152/73 H 07/31/22 01:00 37.9 C H 89 14 07/31/22 01:00 139/76 07/31/22 00:45 37.9 C H 90 14 07/31/22 00:45 145/74 H 07/31/22 00:30 38.0 C H 89 14 07/31/22 00:30 144/73 H 07/31/22 00:15 38.0 C H 90 14 07/31/22 00:15 148/76 H 07/31/22 00:00 38.0 C H 90 14 07/31/22 00:00 142/76 H 07/30/22 23:45 38.0 C H 89 14 07/30/22 23:45 143/74 H 07/30/22 23:30 38.1 C H 90 14 07/30/22 23:30 145/68 H 07/30/22 23:15 38.1 C H 90 14 07/30/22 23:15 150/69 H 07/31/22 03:00 90 07/31/22 02:00 90 07/31/22 01:00 90 07/31/22 00:00 90 07/31/22 00:00 07/30/22 23:35 89 15 07/30/22 23:00 38.2 C H 89 14 07/30/22 23:00 140/70 07/30/22 22:45 38.2 C H 90 14 07/30/22 22:45 132/65 07/30/22 22:30 38.2 C H 90 14 07/30/22 22:30 141/72 H 07/30/22 22:15 38.2 C H 90 14 07/30/22 22:15 142/66 H 07/30/22 23:00 89 07/30/22 22:01 38.3 C H 90 14 07/30/22 22:01 134/66 07/30/22 22:00 38.3 C H 89 14 07/30/22 21:49 137/66 07/30/22 21:49 38.3 C H 89 14 07/30/22 21:45 38.3 C H 90 14 07/30/22 21:31 123/58 L 07/30/22 21:31 38.3 C H 89 14 07/30/22 21:30 38.3 C H 90 14 07/30/22 21:15 38.4 C H 89 14 07/30/22 21:15 146/75 H 07/30/22 21:01 38.4 C H 90 14 07/30/22 21:01 134/64 07/30/22 21:00 38.4 C H 89 14 07/30/22 20:46 38.4 C H 90 15 07/30/22 20:46 140/64 07/30/22 20:45 38.4 C H 90 14 07/30/22 20:30 38.4 C H 90 16 07/30/22 20:30 127/63 07/30/22 22:00 89 07/30/22 21:00 07/30/22 20:22 89 14 BP Pulse Ox FiO2 07/31/22 08:07 133/38 L 97 07/31/22 07:39 96 50 07/31/22 07:10 97 07/31/22 07:00 07/31/22 07:00 50 07/31/22 07:00 113/33 L 97 07/31/22 07:15 97 07/31/22 07:00 98 07/31/22 07:00 07/31/22 06:45 98 07/31/22 06:45 07/31/22 06:30 97 07/31/22 06:30 07/31/22 06:15 98 07/31/22 06:15 07/31/22 06:01 07/31/22 06:01 97 07/31/22 06:00 97 07/31/22 05:45 97 07/31/22 05:45 07/31/22 05:30 99 07/31/22 05:30 07/31/22 05:15 97 07/31/22 05:15 07/31/22 06:00 97 07/31/22 06:40 97 07/31/22 06:25 97 07/31/22 06:06 98 07/31/22 05:00 98 07/31/22 05:00 07/31/22 04:46 97 07/31/22 04:46 07/31/22 04:45 97 07/31/22 04:30 97 07/31/22 04:30 07/31/22 04:15 98 07/31/22 04:15 07/31/22 04:00 97 07/31/22 04:00 07/31/22 03:45 96 07/31/22 03:45 07/31/22 03:30 98 07/31/22 03:30 07/31/22 03:15 98 07/31/22 03:15 07/31/22 05:00 119/36 L 07/31/22 04:00 99/37 L 07/31/22 04:00 50 07/31/22 04:00 07/31/22 03:10 98 50 07/31/22 03:00 99 07/31/22 03:00 07/31/22 02:45 98 07/31/22 02:45 07/31/22 02:30 99 07/31/22 02:30 07/31/22 02:15 99 07/31/22 02:15 07/31/22 02:00 98 07/31/22 02:00 07/31/22 01:45 99 07/31/22 01:45 07/31/22 01:30 98 07/31/22 01:30 07/31/22 01:15 99 07/31/22 01:15 07/31/22 01:00 98 07/31/22 01:00 07/31/22 00:45 99 07/31/22 00:45 07/31/22 00:30 99 07/31/22 00:30 07/31/22 00:15 99 07/31/22 00:15 07/31/22 00:00 99 07/31/22 00:00 07/30/22 23:45 98 07/30/22 23:45 07/30/22 23:30 98 07/30/22 23:30 07/30/22 23:15 98 07/30/22 23:15 07/31/22 03:00 113/35 L 07/31/22 02:00 134/39 L 07/31/22 01:00 130/40 L 07/31/22 00:00 131/39 L 07/31/22 00:00 50 07/30/22 23:35 98 50 07/30/22 23:00 98 07/30/22 23:00 07/30/22 22:45 97 07/30/22 22:45 07/30/22 22:30 98 07/30/22 22:30 07/30/22 22:15 98 07/30/22 22:15 07/30/22 23:00 130/42 L 07/30/22 22:01 98 07/30/22 22:01 07/30/22 22:00 98 07/30/22 21:49 07/30/22 21:49 97 07/30/22 21:45 98 07/30/22 21:31 07/30/22 21:31 98 07/30/22 21:30 97 07/30/22 21:15 98 07/30/22 21:15 07/30/22 21:01 98 07/30/22 21:01 07/30/22 21:00 98 07/30/22 20:46 97 07/30/22 20:46 07/30/22 20:45 97 07/30/22 20:30 97 07/30/22 20:30 07/30/22 22:00 123/37 L 07/30/22 21:00 125/39 L 07/30/22 20:22 98 50 Critical Care Results & Data Vital Signs (Past 12 Hours) Vital Signs Temp Pulse Pulse Pulse Resp BP BP 07/31/22 08:37 37.6 C H 90 15 108/73 07/31/22 08:30 37.6 C H 90 14 07/31/22 08:15 37.5 C 89 14 07/31/22 08:00 37.5 C 89 14 07/31/22 07:45 37.5 C 90 14 135/76 07/31/22 08:39 37.5 C 90 14 108/73 07/31/22 08:10 37.5 C 90 14 131/76 07/31/22 07:00 07/31/22 08:07 89 135/76 07/31/22 07:39 89 16 07/31/22 07:10 37.5 C 89 17 106/44 L 07/31/22 07:00 89 07/31/22 07:00 07/31/22 07:00 89 124/69 07/31/22 07:15 37.5 C 90 13 07/31/22 07:00 37.5 C 90 14 07/31/22 07:00 124/69 07/31/22 06:45 37.5 C 89 14 07/31/22 06:45 127/72 07/31/22 06:30 37.5 C 90 15 07/31/22 06:30 139/67 07/31/22 06:15 37.5 C 90 15 07/31/22 06:15 117/68 07/31/22 06:01 117/60 07/31/22 06:01 37.5 C 89 14 07/31/22 06:00 37.5 C 90 14 07/31/22 05:45 37.5 C 89 14 07/31/22 05:45 119/62 07/31/22 05:30 37.5 C 90 14 07/31/22 05:30 117/65 07/31/22 05:15 37.5 C 89 15 07/31/22 05:15 130/69 07/31/22 06:00 90 124/69 07/31/22 06:40 37.5 C 90 15 124/36 L 07/31/22 06:25 37.5 C 90 15 130/40 L 07/31/22 06:06 37.5 C 90 15 109/30 L 07/31/22 05:00 37.6 C H 89 15 07/31/22 05:00 130/74 07/31/22 04:46 37.6 C H 90 15 07/31/22 04:46 125/66 07/31/22 04:45 37.6 C H 90 15 07/31/22 04:30 37.6 C H 89 15 07/31/22 04:30 93/63 L 07/31/22 04:15 37.6 C H 89 14 07/31/22 04:15 123/67 07/31/22 04:00 37.7 C H 90 14 07/31/22 04:00 119/64 07/31/22 03:45 37.7 C H 89 14 07/31/22 03:45 112/64 07/31/22 03:30 37.7 C H 89 14 07/31/22 03:30 128/62 07/31/22 03:15 37.7 C H 89 14 07/31/22 03:15 132/62 07/31/22 05:00 90 07/31/22 04:00 90 07/31/22 04:00 07/31/22 04:00 90 114/35 L 07/31/22 03:10 89 16 07/31/22 03:00 37.7 C H 89 14 07/31/22 03:00 120/64 07/31/22 02:45 37.7 C H 89 14 07/31/22 02:45 135/67 07/31/22 02:30 37.8 C H 90 14 07/31/22 02:30 137/69 07/31/22 02:15 37.8 C H 89 14 07/31/22 02:15 139/69 07/31/22 02:00 37.8 C H 90 14 07/31/22 02:00 139/69 07/31/22 01:45 37.8 C H 90 14 07/31/22 01:45 145/73 H 07/31/22 01:30 37.9 C H 89 14 07/31/22 01:30 146/71 H 07/31/22 01:15 37.9 C H 89 14 07/31/22 01:15 152/73 H 07/31/22 01:00 37.9 C H 89 14 07/31/22 01:00 139/76 07/31/22 00:45 37.9 C H 90 14 07/31/22 00:45 145/74 H 07/31/22 00:30 38.0 C H 89 14 07/31/22 00:30 144/73 H 07/31/22 00:15 38.0 C H 90 14 07/31/22 00:15 148/76 H 07/31/22 00:00 38.0 C H 90 14 07/31/22 00:00 142/76 H 07/30/22 23:45 38.0 C H 89 14 07/30/22 23:45 143/74 H 07/30/22 23:30 38.1 C H 90 14 07/30/22 23:30 145/68 H 07/30/22 23:15 38.1 C H 90 14 07/30/22 23:15 150/69 H 07/31/22 03:00 90 07/31/22 02:00 90 07/31/22 01:00 90 07/31/22 00:00 90 07/31/22 00:00 07/30/22 23:35 89 15 07/30/22 23:00 38.2 C H 89 14 07/30/22 23:00 140/70 07/30/22 22:45 38.2 C H 90 14 07/30/22 22:45 132/65 07/30/22 22:30 38.2 C H 90 14 07/30/22 22:30 141/72 H 07/30/22 22:15 38.2 C H 90 14 07/30/22 22:15 142/66 H 07/30/22 23:00 89 07/30/22 22:01 38.3 C H 90 14 07/30/22 22:01 134/66 07/30/22 22:00 38.3 C H 89 14 07/30/22 21:49 137/66 07/30/22 21:49 38.3 C H 89 14 07/30/22 21:45 38.3 C H 90 14 07/30/22 22:00 89 BP Pulse Ox O2 Del Method FiO2 07/31/22 08:37 98 Mechanical Vent 50 07/31/22 08:30 98 Mechanical Vent 50 07/31/22 08:15 98 Mechanical Vent 50 07/31/22 08:00 98 Mechanical Vent 50 07/31/22 07:45 98 Mechanical Vent 50 07/31/22 08:39 99 07/31/22 08:10 99 07/31/22 07:00 Mechanical Vent 50 07/31/22 08:07 133/38 L 97 07/31/22 07:39 96 50 07/31/22 07:10 97 07/31/22 07:00 07/31/22 07:00 50 07/31/22 07:00 113/33 L 97 07/31/22 07:15 97 07/31/22 07:00 98 07/31/22 07:00 07/31/22 06:45 98 07/31/22 06:45 07/31/22 06:30 97 07/31/22 06:30 07/31/22 06:15 98 07/31/22 06:15 07/31/22 06:01 07/31/22 06:01 97 07/31/22 06:00 97 07/31/22 05:45 97 07/31/22 05:45 07/31/22 05:30 99 07/31/22 05:30 07/31/22 05:15 97 07/31/22 05:15 07/31/22 06:00 97 07/31/22 06:40 97 07/31/22 06:25 97 07/31/22 06:06 98 07/31/22 05:00 98 07/31/22 05:00 07/31/22 04:46 97 07/31/22 04:46 07/31/22 04:45 97 07/31/22 04:30 97 07/31/22 04:30 07/31/22 04:15 98 07/31/22 04:15 07/31/22 04:00 97 07/31/22 04:00 07/31/22 03:45 96 07/31/22 03:45 07/31/22 03:30 98 07/31/22 03:30 07/31/22 03:15 98 07/31/22 03:15 07/31/22 05:00 119/36 L 07/31/22 04:00 99/37 L 07/31/22 04:00 50 07/31/22 04:00 07/31/22 03:10 98 50 07/31/22 03:00 99 07/31/22 03:00 07/31/22 02:45 98 07/31/22 02:45 07/31/22 02:30 99 07/31/22 02:30 07/31/22 02:15 99 07/31/22 02:15 07/31/22 02:00 98 07/31/22 02:00 07/31/22 01:45 99 07/31/22 01:45 07/31/22 01:30 98 07/31/22 01:30 07/31/22 01:15 99 07/31/22 01:15 07/31/22 01:00 98 07/31/22 01:00 07/31/22 00:45 99 07/31/22 00:45 07/31/22 00:30 99 07/31/22 00:30 07/31/22 00:15 99 07/31/22 00:15 07/31/22 00:00 99 07/31/22 00:00 07/30/22 23:45 98 07/30/22 23:45 07/30/22 23:30 98 07/30/22 23:30 07/30/22 23:15 98 07/30/22 23:15 07/31/22 03:00 113/35 L 07/31/22 02:00 134/39 L 07/31/22 01:00 130/40 L 07/31/22 00:00 131/39 L 07/31/22 00:00 50 07/30/22 23:35 98 50 07/30/22 23:00 98 07/30/22 23:00 07/30/22 22:45 97 07/30/22 22:45 07/30/22 22:30 98 07/30/22 22:30 07/30/22 22:15 98 07/30/22 22:15 07/30/22 23:00 130/42 L 07/30/22 22:01 98 07/30/22 22:01 07/30/22 22:00 98 07/30/22 21:49 07/30/22 21:49 97 07/30/22 21:45 98 07/30/22 22:00 123/37 L Lab & Micro Results (Past 24 Hours) RBC 3.51 M/uL (3.93-5.22) L 08/01/22 WBC 4.87 K/ul (4.8-10.8) 08/01/22 Hgb 10.2 g/dl (12.0-16.0) L 08/01/22 Hct 30.0 % (34.1-44.9) L 08/01/22 MCV 85.5 fL (80.0-100.0) 08/01/22 MCH 29.1 pg (25.0-34.0) 08/01/22 MCHC 34.0 g/dL (32.0-36.0) 08/01/22 RDW Standard Deviation 49.6 fL (36.4-46.3) H 08/01/22 RDW Coefficient of Variation 15.8 % (11.5-14.5) H 08/01/22 Plt Count 98 K/uL (130-400) L 08/01/22 MPV 11.0 fL (9.4-12.3) 08/01/22 Neutrophils (%) (Auto) 74.8 % 08/01/22 Lymphocytes (%) (Auto) 13.1 % 08/01/22 Monocytes # (Auto) 0.51 K/uL (0.24-0.82) 08/01/22 Eosinophils # (Auto) 0.03 K/uL (0-0.50) 08/01/22 Immature Granulocyte % (Auto) 0.4 % 08/01/22 Neutrophils # (Auto) 3.64 K/uL (1.4-6.5) 08/01/22 Lymphocytes # (Auto) 0.64 K/uL (1.2-3.4) L 08/01/22 Monocytes # (Auto) 0.51 K/uL (0.24-0.82) 08/01/22 Eosinophils # (Auto) 0.03 K/uL (0-0.50) 08/01/22 Basophils # (Auto) 0.03 K/uL (0-0.2) 08/01/22 Immature Granulocyte # (Auto) 0.02 K/uL (0.00-0.02) 2 Red Blood Cell Morphology Unremarkable 08/01/22 Na 131 mmol/L (136-145) L 08/01/22 K 3.8 mmol/L (3.5-5.1) 08/01/22 Cl 105 mmol/L (98-107) 08/01/22 CO2 21 mmol/L (21-32) 08/01/22 Anion Gap 5 (3-11) 08/01/22 BUN 14 mg/dl (6-23) 08/01/22 Creatinine 0.98 mg/dl (0.6-1.2) 08/01/22 Estimated GFR ( Amer) 62.3 ml/min 08/01/22 Estimated GFR (Non-Af Amer) 53.7 ml/min 08/01/22 BUN/Creatinine Ratio 14.3 (10-20) 08/01/22 Glu 110 mg/dl (70-99(Fasting)) H 08/01/22 Ca 6.2 mg/dl (8.5-10.1) L 08/01/22 Phosphorus Level 2.5 mg/dl (2.5-4.9) 08/01/22 Mg 2.3 mg/dl (1.7-2.4) 08/01/22 04:08 Calcium Level 6.2 mg/dl (8.5-10.1) L 08/01/22 04:08 Miguelangel Test NA 08/01/22 05:19 I & O Totals 24 Hours 07/30/22 07/31/22 08/01/22 06:59 06:59 06:59 Intake Total 96.927 / 96.927 8184.317 / 8184.317 578.998 / 578.998 Output Total 1550 / 1550 1132 / 1197 92 / 92 Balance -1453.073 / -3128.274 5086.317 / 6987.317 486.998 / 486.998 Cumulative 07/30/22 00:52 thru 07/31/22 09:31 Intake Total 8860.242 Output Total 2774 Balance 6086.242 RT Ventilator Mngmt (Last Documented) Ventilator Ordered Settings Ventilator Support Mode Assist Control 07/31/22 07:39 Respiratory Rate 14 07/31/22 08:39 Ventilator Tidal Volume 400 07/31/22 07:39 Setting Minute Ventilation 6.0 07/31/22 07:39 Positive End Expiratory 5 07/31/22 07:39 Pressure Fraction of Inspired Oxygen 50 07/31/22 08:37 Ventilator - PT Measurements Respiratory Rate 14 Exhaled Tidal Volume 400 Minute Ventilation 6.0 Peak Inspiratory Airway 24 Pressure Plateau Pressure 21.5 Respiratory Cycle Inspiratory: 1:3.0 Expiratory Ratio Inspiratory Phase Time 0.9 End-Tidal CO2 20 Static Lung Compliance 24.24 Dynamic Lung Compliance 21.05 Normal Static Lung Compliance 46.00 Patient Measurements Comment [facility] Coding Level of Care Code Critical Care 1st 30-74 mins Diagnoses Acute GA I21.3 Involved coronary artery: unspecified coronary artery Myocardial infarction type: ST elevation myocardial infarction Chest pain R07.2 Chest pain type: precordial pain Cardiogenic shock R57.0 Antiplatelet or antithrombotic long-term use Z79.02 History of coronary artery bypass graft Z95.1 Hypertension I10 Hyperlipidemia E78.5 CAD (coronary artery disease) I25.10 (1) Acute GA Involved coronary artery: unspecified coronary artery Myocardial infarction type: ST elevation myocardial infarction Qualified Code(s): I21.3 - ST elevation (STEMI) myocardial infarction of unspecified site (2) Chest pain Chest pain type: precordial pain Qualified Code(s): R07.2 - Precordial pain
[2022-07-31] MEDS: DOBUTamine / D5W 500 MG/250 ML BAG IV SCH (08:28)
[2022-07-31] MEDS ORDERED: PANTOprazole 80 MG in DEXTROSE 5% 100 ML IV ONE (09:00)
[2022-07-31] MEDS ORDERED: PANTOPRAZOLE BOLUS/DRIP 1 EACH IV STA (09:00)
[2022-07-31] MEDS ORDERED: CALCIUM GLUCONATE 10% 1,000 MG in DEXTROSE 5% 50 ML IV ONE (09:45)
--- NOTE | 2022-07-31 10:01 | Cardiology Progress Note ---
Date of Service July 31, 2022 Assessment & Plan (1) Acute [place]: Plan: Post PCI with WILBUR to RCA Atretic HANKS to distal LAD, patent SVG to diagonal with retrofilling to LAD 2. Preserved LV functionEF 55% with inferior wall motion abnormality 3. RV dysfunction on echo 4. Sinus bradycardia, AV blocktemporary pacer remains in place 5. Shock, mixed picture 6. Blood loss anemia 7. Thrombocytopenia 8. Hyponatremia 9. ZORAN 10. Acute hypoxic respiratory failure Requiring gradually reduced pressor support. LV function appears preserved on echo and suspect no longer needs additional mechanical support. Blood pressures unchanged with IABP on standby Pacer reduced to VVI at 50. Sinus bradycardia in 50-60s but improved blood pressure/pulse pressure when not paced Hemoglobin reduced again today. No obvious bleeding sources. Some concern for potential RP bleed. Anemia/thrombocytopenia may also be in part related to IABP. Repeat labs pending Plan: Heparin off since yesterday. We will remove balloon pump this morning Serial H&H. Maintain hemoglobin >8. If Hb continues to trend down -- Noncon CT to evaluate for RP bleed Wean phenylephrine, vasopressin off as as able Continue DAPT with aspirin, clopidogrel -- Will discontinue transvenous pacer. Appreciate ICU and hospital medicine care Admission and Anticipated Discharge Date Admission Date: July 30, 2022 Subjective Patient remains intubated, sedated. No events overnight. IABP remains in place, 1:1 overnight Remains on vasopressin, phenylephrine Temporary transvenous pacer in place, VVI at 90 I's/O: 8.1/1.1 Received 3 units RBC yesterday. Hemoglobin 8.5 up to 11.9, back down 8.3 today Review of Systems Review of Systems: Unobtainable due to endotracheal tube Physical Exam Physical Exam: General: Intubated, sedated HEENT: Sclerae Lungs: Coarse breath sounds, scattered wheezing Cardiac: Regular rate, distant heart sounds, no murmurs Vascular: 1+ left radial, nonpalpable DP/PT bilaterally. IABP in place right [employer]STRUCTION[employer] TE[employer]IT[employer]. No obvious hematoma. No ecchymosis. Right upper thigh firm, appears tender in right lower quadrant. No clear flank/lower back tenderness Abdomen: Decreased bowel sounds Extremities: Distal extremities cool, no edema Results & Data ([facility]) Vital Signs (Past 12 Hours) Vital Signs Temp Pulse Pulse Pulse Resp BP BP 07/31/22 08:37 99.7 F H 90 15 108/73 07/31/22 08:30 99.7 F H 90 14 07/31/22 08:15 99.5 F 89 14 07/31/22 08:00 99.5 F 89 14 07/31/22 07:45 99.5 F 90 14 135/76 07/31/22 08:39 99.5 F 90 14 108/73 07/31/22 08:10 99.5 F 90 14 131/76 07/31/22 07:00 07/31/22 08:07 89 135/76 07/31/22 07:39 89 16 07/31/22 07:10 99.5 F 89 17 106/44 L 07/31/22 07:00 89 07/31/22 07:00 07/31/22 07:00 89 124/69 07/31/22 07:15 99.5 F 90 13 07/31/22 07:00 99.5 F 90 14 07/31/22 07:00 124/69 07/31/22 06:45 99.5 F 89 14 07/31/22 06:45 127/72 07/31/22 06:30 99.5 F 90 15 07/31/22 06:30 139/67 07/31/22 06:15 99.5 F 90 15 07/31/22 06:15 117/68 07/31/22 06:01 117/60 07/31/22 06:01 99.5 F 89 14 07/31/22 06:00 99.5 F 90 14 07/31/22 05:45 99.5 F 89 14 07/31/22 05:45 119/62 07/31/22 05:30 99.5 F 90 14 07/31/22 05:30 117/65 07/31/22 05:15 99.5 F 89 15 07/31/22 05:15 130/69 07/31/22 06:00 90 124/69 07/31/22 06:40 99.5 F 90 15 124/36 L 07/31/22 06:25 99.5 F 90 15 130/40 L 07/31/22 06:06 99.5 F 90 15 109/30 L 07/31/22 05:00 99.7 F H 89 15 07/31/22 05:00 130/74 07/31/22 04:46 99.7 F H 90 15 07/31/22 04:46 125/66 07/31/22 04:45 99.7 F H 90 15 07/31/22 04:30 99.7 F H 89 15 07/31/22 04:30 93/63 L 07/31/22 04:15 99.7 F H 89 14 07/31/22 04:15 123/67 07/31/22 04:00 99.9 F H 90 14 07/31/22 04:00 119/64 07/31/22 03:45 99.9 F H 89 14 07/31/22 03:45 112/64 07/31/22 03:30 99.9 F H 89 14 07/31/22 03:30 128/62 07/31/22 03:15 99.9 F H 89 14 07/31/22 03:15 132/62 07/31/22 05:00 90 07/31/22 04:00 90 07/31/22 04:00 07/31/22 04:00 90 114/35 L 07/31/22 03:10 89 16 07/31/22 03:00 99.9 F H 89 14 07/31/22 03:00 120/64 07/31/22 02:45 99.9 F H 89 14 07/31/22 02:45 135/67 07/31/22 02:30 100.0 F H 90 14 07/31/22 02:30 137/69 07/31/22 02:15 100.0 F H 89 14 07/31/22 02:15 139/69 07/31/22 02:00 100.0 F H 90 14 07/31/22 02:00 139/69 07/31/22 01:45 100.0 F H 90 14 07/31/22 01:45 145/73 H 07/31/22 01:30 100.2 F H 89 14 07/31/22 01:30 146/71 H 07/31/22 01:15 100.2 F H 89 14 07/31/22 01:15 152/73 H 07/31/22 01:00 100.2 F H 89 14 07/31/22 01:00 139/76 07/31/22 00:45 100.2 F H 90 14 07/31/22 00:45 145/74 H 07/31/22 00:30 100.4 F H 89 14 07/31/22 00:30 144/73 H 07/31/22 00:15 100.4 F H 90 14 07/31/22 00:15 148/76 H 07/31/22 00:00 100.4 F H 90 14 07/31/22 00:00 142/76 H 07/30/22 23:45 100.4 F H 89 14 07/30/22 23:45 143/74 H 07/30/22 23:30 100.6 F H 90 14 07/30/22 23:30 145/68 H 07/30/22 23:15 100.6 F H 90 14 07/30/22 23:15 150/69 H 07/31/22 03:00 90 07/31/22 02:00 90 07/31/22 01:00 90 07/31/22 00:00 90 07/31/22 00:00 07/30/22 23:35 89 15 07/30/22 23:00 100.8 F H 89 14 07/30/22 23:00 140/70 07/30/22 22:45 100.8 F H 90 14 07/30/22 22:45 132/65 07/30/22 22:30 100.8 F H 90 14 07/30/22 22:30 141/72 H 07/30/22 22:15 100.8 F H 90 14 07/30/22 22:15 142/66 H 07/30/22 23:00 89 07/30/22 22:01 100.9 F H 90 14 07/30/22 22:01 134/66 07/30/22 22:00 100.9 F H 89 14 07/30/22 21:49 137/66 07/30/22 21:49 100.9 F H 89 14 07/30/22 21:45 100.9 F H 90 14 07/30/22 22:00 89 BP Pulse Ox O2 Del Method FiO2 07/31/22 08:37 98 Mechanical Vent 50 07/31/22 08:30 98 Mechanical Vent 50 07/31/22 08:15 98 Mechanical Vent 50 07/31/22 08:00 98 Mechanical Vent 50 07/31/22 07:45 98 Mechanical Vent 50 07/31/22 08:39 99 07/31/22 08:10 99 07/31/22 07:00 Mechanical Vent 50 07/31/22 08:07 133/38 L 97 07/31/22 07:39 96 50 07/31/22 07:10 97 07/31/22 07:00 07/31/22 07:00 50 07/31/22 07:00 113/33 L 97 07/31/22 07:15 97 07/31/22 07:00 98 07/31/22 07:00 07/31/22 06:45 98 07/31/22 06:45 07/31/22 06:30 97 07/31/22 06:30 07/31/22 06:15 98 07/31/22 06:15 07/31/22 06:01 07/31/22 06:01 97 07/31/22 06:00 97 07/31/22 05:45 97 07/31/22 05:45 07/31/22 05:30 99 07/31/22 05:30 07/31/22 05:15 97 07/31/22 05:15 07/31/22 06:00 97 07/31/22 06:40 97 07/31/22 06:25 97 07/31/22 06:06 98 07/31/22 05:00 98 07/31/22 05:00 07/31/22 04:46 97 07/31/22 04:46 07/31/22 04:45 97 07/31/22 04:30 97 07/31/22 04:30 07/31/22 04:15 98 07/31/22 04:15 07/31/22 04:00 97 07/31/22 04:00 07/31/22 03:45 96 07/31/22 03:45 07/31/22 03:30 98 07/31/22 03:30 07/31/22 03:15 98 07/31/22 03:15 07/31/22 05:00 119/36 L 07/31/22 04:00 99/37 L 07/31/22 04:00 50 07/31/22 04:00 07/31/22 03:10 98 50 07/31/22 03:00 99 07/31/22 03:00 07/31/22 02:45 98 07/31/22 02:45 07/31/22 02:30 99 07/31/22 02:30 07/31/22 02:15 99 07/31/22 02:15 07/31/22 02:00 98 07/31/22 02:00 07/31/22 01:45 99 07/31/22 01:45 07/31/22 01:30 98 07/31/22 01:30 07/31/22 01:15 99 07/31/22 01:15 07/31/22 01:00 98 07/31/22 01:00 07/31/22 00:45 99 07/31/22 00:45 07/31/22 00:30 99 07/31/22 00:30 07/31/22 00:15 99 07/31/22 00:15 07/31/22 00:00 99 07/31/22 00:00 07/30/22 23:45 98 07/30/22 23:45 07/30/22 23:30 98 07/30/22 23:30 07/30/22 23:15 98 07/30/22 23:15 07/31/22 03:00 113/35 L 07/31/22 02:00 134/39 L 07/31/22 01:00 130/40 L 07/31/22 00:00 131/39 L 07/31/22 00:00 50 07/30/22 23:35 98 50 07/30/22 23:00 98 07/30/22 23:00 07/30/22 22:45 97 07/30/22 22:45 07/30/22 22:30 98 07/30/22 22:30 07/30/22 22:15 98 07/30/22 22:15 07/30/22 23:00 130/42 L 07/30/22 22:01 98 07/30/22 22:01 07/30/22 22:00 98 07/30/22 21:49 07/30/22 21:49 97 07/30/22 21:45 98 07/30/22 22:00 123/37 L PG Care Time/CCT Total # of Minutes Spent Total Time Spent with Patient: Total time spent is greater than 50% in coordination of care (as documented) at patient's floor/unit and/or counseling patient: Coding Level of Care Code 12664 Subseq Hosp Care Lvl 3 Diagnoses Acute [place] I21.3 Involved coronary artery: unspecified coronary artery Myocardial infarction type: ST elevation myocardial infarction (1) Acute [place] Involved coronary artery: unspecified coronary artery Myocardial infarction type: ST elevation myocardial infarction Qualified Code(s): I21.3 - ST elevation (STEMI) myocardial infarction of unspecified site
[2022-07-31] MEDS: PANTOprazole 40 MG in DEXTROSE 5% 100 ML IV SCH ×3 (10:04→20:08)
--- NOTE | 2022-07-31 10:10 | XRay Report ---
XR chest 1V portable supine CLINICAL HISTORY: intubation COMPARISON STUDY: Chest radiograph July 30, 2022 at 8:58 AM. FINDINGS: Tip of endotracheal tube is 1 cm above the estee. Nasogastric tube is coiled within the st omach. The tip is within the gastric fundus. No pneumothorax is identified on supine exam. There is a small left pleural effusion. Left basilar opacity is increased on this supine exam. There is pulmona ry vascular congestion. IMPRESSION: 1. Tip of endotracheal tube 1 cm above the estee. 2. Small left pleural effusion with left basilar opacity which could reflect atelectasis or consolida tion. 3. Pulmonary vascular congestion. ACT 112: Negative or not required by law. Electronically signed by: Ross Call M.D. 07/31/2022 10:09 AM
[2022-07-31 10:17] LABS: Hematocrit (blood only) 34.2 % (34.1-44.9); Hemoglobin 11.7 g/dl (12.0-16.0)
[2022-07-31] MEDS: ASPIRIN 325 MG ECTAB PO SCH (10:52)
[2022-07-31] MEDS: ASPIRIN 81 MG CHEW PO SCH (11:38)
[2022-07-31] MEDS: ATORVASTATIN 40 MG TAB PO SCH (11:38)
[2022-07-31] MEDS: CLOPIDOGREL BISULFATE 75 MG TAB PO SCH (11:39)
--- NOTE | 2022-07-31 12:06 | Pharmacy Report ---
Pharmacy Glycemic Short Note 2 - Date of Service July 31, 2022 - Glycemic Short BSG Results (Last 24 hours): 07/30/22 07/30/22 07/30/22 12:44 15:26 16:28 Glucose 354 H* POC Glucose (other) 282 H 264 H 07/30/22 07/30/22 07/30/22 17:25 18:32 19:26 Glucose 157 H POC Glucose (other) 229 H 187 H 07/30/22 07/30/22 07/30/22 19:29 20:34 21:28 Glucose POC Glucose (other) 158 H 141 H 132 H 07/30/22 07/31/22 07/31/22 22:30 00:26 01:29 Glucose POC Glucose (other) 123 H 110 H 88 07/31/22 07/31/22 07/31/22 02:39 03:51 04:33 Glucose 116 H POC Glucose (other) 106 H 120 H 07/31/22 07/31/22 06:48 07:53 Glucose POC Glucose (other) 119 H 120 H OUTPATIENT ANTIDIABETIC REGIMEN: * n/a * a1C 6.1% ASSESSMENT: 07/31: * BSGs within goal on insulin infusion. Drip has been held most of this AM (~0130 turned off) given BSGs at the low end of target range. * Remains intubated, weaning off pressors, IABP to be removed today * Given insulin drip on hold since ~0130 and BSGs staying within goal, will hold the drip for now * Plan to monitor BSGs q4 and correct with Novolog. Re-initiate insulin infusion if BSG >220mg/dL at 2.5 units/hr. 07/30: * Patient admitted with STEMI, post cardiac catheterization technician WILBUR x1 placed, history of previous CABG * Patient not on any antidiabetes medications at home, A1c 6.1%, significant stressors, intubated with balloon pump, currently on phenylephrine/vasopressin * BSG elevated on labs, potentially d/t stress, repeat elevated, will begin insulin infusion PLAN FOR INPATIENT GLYCEMIC CONTROL: * Novolog q4h (CF: 30) * Resume insulin infusion at 2.5 units/hr if BSG >220mg/dL
--- NOTE | 2022-07-31 15:04 | Hospitalist Progress Note ---
Date of Service July 31, 2022 Assessment & Plan (1) Cardiogenic shock: Plan: Reason Critically Ill: 81-year-old female with history of CAD and CABG presents to the ICU in cardiogenic shock requiring dopamine drip and balloon pump, following inferior STEMI and s/p WILBUR x1 to the RCA. -Secondary to inferior STEMI currently status post catheterization to the RCA -Wean phenylephrine per nephrology social worker -Balloon pump discontinued by cardiology today -Continue to monitor pressures via A-line -Continue Lipitor, Plavix, aspirin -Continue to hold hypertensive agents in the setting of hypotension (2) Acute [place]: Plan: -Inferior STEMI secondary to 100% occlusion of the RCA, status post catheterization -Management per cardiology, appreciate recommendations -Currently off heparin drip, see additional planning above. (3) Anemia: Plan: -Unfortunately patient lost blood overnight going from 11.4-8.3 this morning -Patient was transfused 2 units -Repeat hemoglobin was 11.2, continue to monitor -Suspect possible retroperitoneal bleed, checking with CTA today per nephrology social worker (4) Antiplatelet or antithrombotic long-term use: Plan: - Continue Plavix, aspirin (5) Hypertension: Plan: - Antihypertensives on hold in the setting of hypotension and on pressors. (6) Hyperlipidemia: Plan: - Continue Lipitor (7) CAD (coronary artery disease): Plan: - Continue Lipitor, Plavix, aspirin DVT prophylaxis: Contraindicated in the setting of acute blood loss Diet: N.p.o. given mechanical ventilation Disposition: ICU CODE STATUS: Full code Admission and Anticipated Discharge Date Admission Date: July 30, 2022 Supervising Physician Co-Signing Physician Notes chart reviewed, case d/w Dr Pillai. ongoing critical care/ICU management. as above Subjective Patient seen at bedside this morning. Patient continues to be under light anesthesia given mechanical ventilation. No meaningful HPI gathered at this time. Review of Systems Review of Systems: Unobtainable due to endotracheal tube Physical Exam Constitutional: well developed, well nourished and + altered mental status Eyes: + anicteric sclerae Neck: normal visual inspection Respiratory: Auscultation: + bronchial breath sounds Mechanically ventilated Cardiovascular: Rate/Rhythm: regular rate Pacer present. Aortic balloon pump Gastrointestinal (Abdomen): Inspection/Auscultation: abdomen normal to inspection Skin: no rashes, warm and dry Neurologic: + obtunded Genitourinary: Sofia catheter present Results & Data Results & Data ([facility] [place]) Vital Signs (Past 12 Hours) Vital Signs Temp Pulse Pulse Pulse Resp BP BP 07/31/22 10:38 64 17 07/31/22 10:15 37.5 C 57 L 14 101/60 07/31/22 10:00 37.6 C H 58 L 14 99/56 L 07/31/22 09:59 37.6 C H 58 L 14 105/47 L 07/31/22 09:45 37.6 C H 55 L 14 07/31/22 09:30 37.6 C H 51 L 14 07/31/22 09:15 37.6 C H 56 L 14 07/31/22 09:01 37.6 C H 89 14 138/84 07/31/22 08:37 37.6 C H 90 15 108/73 07/31/22 08:30 37.6 C H 90 14 07/31/22 08:15 37.5 C 89 14 07/31/22 08:00 37.5 C 89 14 07/31/22 07:45 37.5 C 90 14 135/76 07/31/22 08:39 37.5 C 90 14 108/73 07/31/22 08:10 37.5 C 90 14 131/76 07/31/22 07:00 07/31/22 08:07 89 135/76 07/31/22 07:39 89 16 07/31/22 07:10 37.5 C 89 17 106/44 L 07/31/22 07:00 89 07/31/22 07:00 07/31/22 07:00 89 124/69 07/31/22 07:15 37.5 C 90 13 07/31/22 07:00 37.5 C 90 14 07/31/22 07:00 124/69 07/31/22 06:45 37.5 C 89 14 07/31/22 06:45 127/72 07/31/22 06:30 37.5 C 90 15 07/31/22 06:30 139/67 07/31/22 06:15 37.5 C 90 15 07/31/22 06:15 117/68 07/31/22 06:01 117/60 07/31/22 06:01 37.5 C 89 14 07/31/22 06:00 37.5 C 90 14 07/31/22 05:45 37.5 C 89 14 07/31/22 05:45 119/62 07/31/22 05:30 37.5 C 90 14 07/31/22 05:30 117/65 07/31/22 05:15 37.5 C 89 15 07/31/22 05:15 130/69 07/31/22 06:00 90 124/69 07/31/22 06:40 37.5 C 90 15 124/36 L 07/31/22 06:25 37.5 C 90 15 130/40 L 07/31/22 06:06 37.5 C 90 15 109/30 L 07/31/22 05:00 37.6 C H 89 15 07/31/22 05:00 130/74 07/31/22 04:46 37.6 C H 90 15 07/31/22 04:46 125/66 07/31/22 04:45 37.6 C H 90 15 07/31/22 04:30 37.6 C H 89 15 07/31/22 04:30 93/63 L 07/31/22 04:15 37.6 C H 89 14 07/31/22 04:15 123/67 07/31/22 04:00 37.7 C H 90 14 07/31/22 04:00 119/64 07/31/22 03:45 37.7 C H 89 14 07/31/22 03:45 112/64 07/31/22 03:30 37.7 C H 89 14 07/31/22 03:30 128/62 07/31/22 03:15 37.7 C H 89 14 07/31/22 03:15 132/62 07/31/22 05:00 90 07/31/22 04:00 90 07/31/22 04:00 07/31/22 04:00 90 114/35 L 07/31/22 03:10 89 16 07/31/22 03:00 37.7 C H 89 14 07/31/22 03:00 120/64 07/31/22 02:45 37.7 C H 89 14 07/31/22 02:45 135/67 07/31/22 02:30 37.8 C H 90 14 07/31/22 02:30 137/69 07/31/22 02:15 37.8 C H 89 14 07/31/22 02:15 139/69 07/31/22 02:00 37.8 C H 90 14 07/31/22 02:00 139/69 07/31/22 01:45 37.8 C H 90 14 07/31/22 01:45 145/73 H 07/31/22 01:30 37.9 C H 89 14 07/31/22 01:30 146/71 H 07/31/22 01:15 37.9 C H 89 14 07/31/22 01:15 152/73 H 07/31/22 01:00 37.9 C H 89 14 07/31/22 01:00 139/76 07/31/22 00:45 37.9 C H 90 14 07/31/22 00:45 145/74 H 07/31/22 00:30 38.0 C H 89 14 07/31/22 00:30 144/73 H 07/31/22 00:15 38.0 C H 90 14 07/31/22 00:15 148/76 H 07/31/22 00:00 38.0 C H 90 14 07/31/22 00:00 142/76 H 07/30/22 23:45 38.0 C H 89 14 07/30/22 23:45 143/74 H 07/30/22 23:30 38.1 C H 90 14 07/30/22 23:30 145/68 H 07/30/22 23:15 38.1 C H 90 14 07/30/22 23:15 150/69 H 07/31/22 03:00 90 07/31/22 02:00 90 07/31/22 01:00 90 07/31/22 00:00 90 07/31/22 00:00 07/30/22 23:35 89 15 07/30/22 23:00 38.2 C H 89 14 07/30/22 23:00 140/70 07/30/22 23:00 89 BP Pulse Ox O2 Del Method FiO2 07/31/22 10:38 105/45 L 98 Mechanical Vent 07/31/22 10:15 97 Mechanical Vent 50 07/31/22 10:00 97 Mechanical Vent 50 07/31/22 09:59 98 Mechanical Vent 50 07/31/22 09:45 97 Mechanical Vent 50 07/31/22 09:30 97 Mechanical Vent 50 07/31/22 09:15 98 Mechanical Vent 50 07/31/22 09:01 97 Mechanical Vent 50 07/31/22 08:37 98 Mechanical Vent 50 07/31/22 08:30 98 Mechanical Vent 50 07/31/22 08:15 98 Mechanical Vent 50 07/31/22 08:00 98 Mechanical Vent 50 07/31/22 07:45 98 Mechanical Vent 50 07/31/22 08:39 99 07/31/22 08:10 99 07/31/22 07:00 Mechanical Vent 50 07/31/22 08:07 133/38 L 97 07/31/22 07:39 96 50 07/31/22 07:10 97 07/31/22 07:00 07/31/22 07:00 50 07/31/22 07:00 113/33 L 97 07/31/22 07:15 97 07/31/22 07:00 98 07/31/22 07:00 07/31/22 06:45 98 07/31/22 06:45 07/31/22 06:30 97 07/31/22 06:30 07/31/22 06:15 98 07/31/22 06:15 07/31/22 06:01 07/31/22 06:01 97 07/31/22 06:00 97 07/31/22 05:45 97 07/31/22 05:45 07/31/22 05:30 99 07/31/22 05:30 07/31/22 05:15 97 07/31/22 05:15 07/31/22 06:00 97 07/31/22 06:40 97 07/31/22 06:25 97 07/31/22 06:06 98 07/31/22 05:00 98 07/31/22 05:00 07/31/22 04:46 97 07/31/22 04:46 07/31/22 04:45 97 07/31/22 04:30 97 07/31/22 04:30 07/31/22 04:15 98 07/31/22 04:15 07/31/22 04:00 97 07/31/22 04:00 07/31/22 03:45 96 07/31/22 03:45 07/31/22 03:30 98 07/31/22 03:30 07/31/22 03:15 98 07/31/22 03:15 07/31/22 05:00 119/36 L 07/31/22 04:00 99/37 L 07/31/22 04:00 50 07/31/22 04:00 07/31/22 03:10 98 50 07/31/22 03:00 99 07/31/22 03:00 07/31/22 02:45 98 07/31/22 02:45 07/31/22 02:30 99 07/31/22 02:30 07/31/22 02:15 99 07/31/22 02:15 07/31/22 02:00 98 07/31/22 02:00 07/31/22 01:45 99 07/31/22 01:45 07/31/22 01:30 98 07/31/22 01:30 07/31/22 01:15 99 07/31/22 01:15 07/31/22 01:00 98 07/31/22 01:00 07/31/22 00:45 99 07/31/22 00:45 07/31/22 00:30 99 07/31/22 00:30 07/31/22 00:15 99 07/31/22 00:15 07/31/22 00:00 99 07/31/22 00:00 07/30/22 23:45 98 07/30/22 23:45 07/30/22 23:30 98 07/30/22 23:30 07/30/22 23:15 98 07/30/22 23:15 07/31/22 03:00 113/35 L 07/31/22 02:00 134/39 L 07/31/22 01:00 130/40 L 07/31/22 00:00 131/39 L 07/31/22 00:00 50 07/30/22 23:35 98 50 07/30/22 23:00 98 07/30/22 23:00 07/30/22 23:00 130/42 L (1) Acute [place] Involved coronary artery: unspecified coronary artery Myocardial infarction type: ST elevation myocardial infarction Qualified Code(s): I21.3 - ST elevation (STEMI) myocardial infarction of unspecified site
[2022-07-31 16:27] LABS: Hematocrit (blood only) 33.1 % (34.1-44.9); Hemoglobin 11.2 g/dl (12.0-16.0)
[2022-07-31] MEDS: [UNRECOGNIZED DRUG - OTHER] SCH (17:07)
[2022-07-31] MEDS: fentaNYL citrate 2,500 MCG/250 ML BAG IV SCH (19:39)
[2022-07-31 22:50] LABS: Hematocrit (blood only) 31.2 % (34.1-44.9); Hemoglobin 10.7 g/dl (12.0-16.0)
[2022-08-01] MEDS: NORMOSOL-R 1,000 ML IV SCH ×2 (00:30→11:21)
[2022-08-01] MEDS: INSULIN ASPART PER UNIT SC SCH ×5 (00:33→18:12)
[2022-08-01] MEDS: [UNRECOGNIZED DRUG - OTHER] SCH ×2 (00:34→08:55)
[2022-08-01] MEDS: PANTOprazole 40 MG in DEXTROSE 5% 100 ML IV SCH ×3 (00:34→11:08)
[2022-08-01] MEDS: PHENYLEPHRINE HCL 80 MG in SODIUM CHLORIDE 0.9% 500 ML IV SCH ×3 (02:13→05:43)
[2022-08-01 05:14] LABS: Hemoglobin 10.2 g/dl (12.0-16.0); Mean Corpuscular Hemoglobin 29.1 pg (25.0-34.0); Mean Corpuscular Volume 85.5 fL (80.0-100.0); Platelet Count 98 K/uL (130-400); RDW Coefficient of Variation 15.8 % (11.5-14.5); RDW Standard Deviation 49.6 fL (36.4-46.3); Red Blood Count 3.51 M/uL (3.93-5.22); White Blood Count 4.87 K/ul (4.8-10.8)
[2022-08-01 05:16] LABS: Basophils # (auto) 0.03 K/uL (0-0.2); Basophils % (auto) 0.6 %; Eosinophils # (auto) 0.03 K/uL (0-0.50); Eosinophils % (auto) 0.6 %; Immature Granulocytes # (auto) 0.02 K/uL (0.00-0.02); Immature Granulocytes % (auto) 0.4 %; Lymphocytes # (auto) 0.64 K/uL (1.2-3.4); Lymphocytes % (auto) 13.1 %; Monocytes # (auto) 0.51 K/uL (0.24-0.82); Monocytes % (auto) 10.5 %; Neutrophils # (auto) 3.64 K/uL (1.4-6.5); Neutrophils % (auto) 74.8 %; RBC Morphology Unremarkable
[2022-08-01 05:50] LABS: iSTAT Art Bld Gas pCO2 Correct 36 mmHg (35-46); iSTAT Arterial Blood Gas HCO3 22 meg/L (19-24); iSTAT Arterial Blood Gas pCO2 36 mmHg (35-46); iSTAT Arterial Blood Gas pH 7.39 (7.35-7.45); iSTAT Arterial Blood Gas pO2 97 mmHg (80-95); iSTAT Arterial Blood Gas pO2 C 98; iSTAT Carbon Dioxide 23 mmol/L (24-31); iSTAT FiO2 40 %; iSTAT Hematocrit 29 % (37-47); iSTAT Hemoglobin 9.9 g/dl (12.0-16.0); iSTAT Potassium 3.9 mmol/L (3.3-5.0); iSTAT Site Art Line; iSTAT Sodium 133 mmol/L (135-144)
[2022-08-01 05:51] LABS: BUN Creatinine Ratio 14.3 (10-20); Calcium 6.2 mg/dl (8.5-10.1); Creatinine Clr Calc Pharmacy 43.9 ml/min; Est GFR (African American) 62.3 ml/min; Est GFR (Non-African American) 53.7 ml/min; Magnesium 2.3 mg/dl (1.7-2.4); Phosphorus 2.5 mg/dl (2.5-4.9); Potassium 3.8 mmol/L (3.5-5.1)
[2022-08-01] MEDS: POTASSIUM CHLORIDE / WTR 10 MEQ/100 ML PLCT IV SCH ×2 (06:47→08:54)
--- NOTE | 2022-08-01 07:53 | XRay Report ---
XR chest 1V portable CLINICAL HISTORY: Respiratory failure. COMPARISON STUDY: Chest radiograph July 31, 2022. FINDINGS: Tip of endotracheal tube is partially obscured by overlying leads however is approximately 1.1 cm above the estee. Nasogastric tube is coiled within the stomach. Tip is within the fundus. Car diomediastinal silhouette is stable. Pulmonary vascular congestion is unchanged. No pneumothorax is i dentified. There is a small left pleural effusion. Left basilar opacity persists. Nonemergent mediast inal surgical clips. IMPRESSION: 1. Tip of endotracheal tube approximately 1.1 cm above the estee. 2. Persistent left basilar opacity which could reflect consolidation or atelectasis. Small left pleur al effusion. 3. Pulmonary vascular congestion, unchanged. ACT 112: Negative or not required by law. Electronically signed by: Ross Call M.D. 08/01/2022 7:51 AM
--- NOTE | 2022-08-01 08:40 | Critical Care Progress Note ---
Date of Service August 01, 2022 Assessment & Plan (1) Acute [place]: Plan: Reason Critically Ill: 81-year-old female with history of CAD and CABG presents to the ICU in cardiogenic shock requiring dopamine drip and balloon pump, following inferior STEMI and s/p WILBUR x1 to the RCA. Neuro - Sedation: Versed and fentanyl drips Cardiac - STEMI/cardiogenic shockstatus post cardiac cath with WILBUR x1 to the RCA. Prior grafts noted to be patent. - Off heparin drip -Unable to Doppler right pedal pulse -Capillary refill appears adequate -Discontinued balloon pump 07/31 -Continuous monitor on telemetry -Lipitor, Plavix -Hold antihypertensives in the setting of shock -81 mg chewable aspirin Respiratory - Acute hypoxic respiratory failureextubation today GI - N.p.o., -OG tube to intermittent low wall suction Cannot exclude Ana-Sutton tear or GI losses -Convert infusion to PPI twice daily RENAL/LYTES - Acute kidney injury: Improving -Close observation may require CTA to exclude retroperitoneal bleed Hypocalcemia -2 g calcium gluconate - Foleystrict I's and O's ENDO - Continue ICU hyperglycemia protocol -Insulin infusion on hold HEME - Acute blood loss anemia -Unclear source, possible RP etiology - H&H stable -If patient requires additional blood products will proceed with CTA to exclude retroperitoneal source ID - Medication for infectious process at this time LINES/IV ACCESS - Peripheral IVs, discontinue central venous access DVT PROPHYLAXIS - SCDs, chemical prophylaxis contraindicated in ongoing blood loss 1250: notified of epigastric discomfort, unable to provide an intensity description. EKG: NSR with non-specific st wave abnormality. Will chest troponin now, H/H and repeat ekg in 1 hour. (2) Chest pain: (3) Cardiogenic shock: (4) Antiplatelet or antithrombotic long-term use: (5) History of coronary artery bypass graft: (6) Hypertension: (7) Hyperlipidemia: (8) CAD (coronary artery disease): Admission and Anticipated Discharge Date Admission Date: July 30, 2022 Supervising Physician Co-Signing Physician Notes I have personally spent 40 minutes of critical care time in the direct management of this patient. This is a life/limb threatening event. This includes time spent evaluating patient, direct bedside care, chart review, placing orders, interpretation of diagnostic studies, discussion with consultants, patient, and/or family members regarding treatment decisions, as well as other required patient management activities. This time is exclusive of all separately billable procedures, and teaching time and separate from and in addition to any other critical care service time. Subjective no overnight events Physical Exam Physical Exam: General: Sedated. nontoxic. Skin: Warm, dry, Head: Ecchymoses of right superior lip, appearance of ecchymoses of tongue: no significant swelling Ears, nose, mouth and throat: airway obscured by endotracheal tube Cardiovascular: normal capillary refill Respiratory: No respiratory distress Gastrointestinal: Non distended Groin/: Sofia catheter present Musculoskeletal: No deformity -Right foot warm to touch adequate perfusion and capillary refill Results & Data Results & Data ([facility]) Vital Signs (Past 12 Hours) Vital Signs Temp Pulse Resp BP Pulse Ox O2 Del Method FiO2 08/01/22 07:38 58 L 15 99 40 08/01/22 05:30 37.2 C 60 14 100 08/01/22 05:30 95/48 L 08/01/22 05:15 37.2 C 60 15 99 08/01/22 05:15 99/53 L 08/01/22 05:00 37.2 C 63 17 99 08/01/22 05:00 89/60 L 08/01/22 04:30 37.2 C 51 L 14 99 08/01/22 04:30 92/46 L 08/01/22 04:15 37.1 C 50 L 14 99 08/01/22 04:15 93/44 L 08/01/22 04:00 37.1 C 50 L 14 98 08/01/22 04:00 91/58 L 08/01/22 03:45 107/50 L 08/01/22 03:45 37.2 C 51 L 14 99 08/01/22 03:30 37.2 C 51 L 14 99 08/01/22 03:30 103/49 L 08/01/22 04:00 40 08/01/22 02:49 53 L 20 100 40 08/01/22 03:15 103/47 L 08/01/22 03:15 37.2 C 51 L 14 99 08/01/22 03:00 37.3 C 52 L 14 98 08/01/22 03:00 98/53 L 08/01/22 02:45 105/49 L 08/01/22 02:45 37.3 C 49 L 14 99 08/01/22 02:30 102/47 L 08/01/22 02:30 37.3 C 51 L 14 99 08/01/22 02:15 101/47 L 08/01/22 02:15 37.4 C 51 L 14 98 08/01/22 02:00 37.4 C 52 L 14 97 08/01/22 02:00 97/45 L 08/01/22 01:30 100/46 L 08/01/22 01:30 37.5 C 55 L 15 98 08/01/22 01:15 37.5 C 61 14 98 08/01/22 01:15 105/49 L 08/01/22 01:00 37.5 C 65 14 99 08/01/22 00:45 37.5 C 54 L 14 99 08/01/22 00:45 91/44 L 08/01/22 00:00 40 08/01/22 00:15 37.5 C 53 L 14 99 08/01/22 00:15 97/45 L 08/01/22 00:00 37.5 C 53 L 14 99 08/01/22 00:00 98/45 L 07/31/22 23:45 37.5 C 53 L 14 99 07/31/22 23:45 97/46 L 07/31/22 23:30 37.6 C H 52 L 14 100 07/31/22 23:15 37.6 C H 55 L 14 99 07/31/22 23:15 97/49 L 07/31/22 23:00 37.6 C H 54 L 14 99 07/31/22 23:00 94/44 L 07/31/22 22:45 37.6 C H 56 L 12 100 07/31/22 22:45 95/45 L 07/31/22 22:30 37.6 C H 64 14 95 07/31/22 22:30 98/51 L 07/31/22 22:15 37.6 C H 55 L 15 99 07/31/22 22:15 99/50 L 07/31/22 22:00 37.6 C H 54 L 12 100 07/31/22 22:00 96/45 L 07/31/22 21:45 37.6 C H 54 L 12 99 07/31/22 21:45 98/45 L 07/31/22 21:30 37.6 C H 56 L 12 99 07/31/22 21:30 99/45 L 08/01/22 00:00 53 L 07/31/22 22:34 55 L 24 100 40 07/31/22 21:00 37.6 C H 56 L 12 99 07/31/22 20:45 37.6 C H 58 L 12 98 07/31/22 20:45 98/47 L 07/31/22 21:29 Mechanical Vent 40 Coding Level of Care Code Critical Care 1st 30-74 mins Diagnoses Acute [place] I21.3 Involved coronary artery: unspecified coronary artery Myocardial infarction type: ST elevation myocardial infarction Chest pain R07.2 Chest pain type: precordial pain Cardiogenic shock R57.0 Antiplatelet or antithrombotic long-term use Z79.02 History of coronary artery bypass graft Z95.1 Hypertension I10 Hyperlipidemia E78.5 CAD (coronary artery disease) I25.10 (1) Acute [place] Involved coronary artery: unspecified coronary artery Myocardial infarction type: ST elevation myocardial infarction Qualified Code(s): I21.3 - ST elevation (STEMI) myocardial infarction of unspecified site (2) Chest pain Chest pain type: precordial pain Qualified Code(s): R07.2 - Precordial pain
[2022-08-01] MEDS: ASPIRIN 81 MG CHEW PO SCH (08:55)
[2022-08-01] MEDS: ATORVASTATIN 40 MG TAB PO SCH (08:56)
[2022-08-01] MEDS: CLOPIDOGREL BISULFATE 75 MG TAB PO SCH (08:56)
[2022-08-01] MEDS ORDERED: CALCIUM GLUCONATE 10% 2,000 MG in DEXTROSE 5% 50 ML IV ONE (10:31)
[2022-08-01] MEDS ORDERED: STAT IV STA (10:31)
[2022-08-01 13:17] LABS: Hematocrit (blood only) 30.6 % (34.1-44.9); Hemoglobin 10.6 g/dl (12.0-16.0)
--- NOTE | 2022-08-01 13:39 | Cardiology Progress Note ---
Date of Service August 01, 2022 Assessment & Plan (1) Acute [place]: Plan: Post PCI with WILBUR to RCA Atretic HANKS to distal LAD, patent SVG to diagonal with retrofilling to LAD 2. Preserved LV functionEF 55% with inferior wall motion abnormality 3. RV dysfunction on echo 4. Sinus bradycardia, AV blocktemporary pacer removed 5. Shock, mixed picture 6. Blood loss anemia 7. Thrombocytopenia 8. Hyponatremia 9. ZORAN 10. Acute hypoxic respiratory failure Improved today. Extubated this morning. Electrically stable No clear access site complications Requiring minimal pressor support. Mild congestion on chest xray unchanged. Renal function, Hemoglobin stable Mild epigastric pain - do not think is angina. Plan: Wean phenylephrine off as as able Continue DAPT with aspirin, clopidogrel. Continue statin -- Repeat troponin until downtrending. Serial H&H. Maintain hemoglobin >8. Appreciate ICU and hospital medicine care Admission and Anticipated Discharge Date Admission Date: July 30, 2022 Subjective No events overnight. Extubated this morning. Able to follow commands, answer few questions. On minimal residual phenylepherine Tele reviewed -- sinus rhythm 60s overnight, 70-80s this morning. No events. Review of Systems Review of Systems: All systems reviewed & are unremarkable except as noted in HPI & below Physical Exam Physical Exam: General: extubated, sleepy, gurgling breath sounds. Able to whisper few words. HEENT: Sclerae Lungs: No crackles Cardiac: Regular rate, distant heart sounds, no murmurs Vascular: 1+ left radial, nonpalpable DP/PT bilaterally. Ecchymosis RT [employer], no obvious hematoma. RT CFV sheath in palce. Abdomen: Decreased bowel sounds Extremities: Distal extremities cool, no edema Results & Data ([facility]) Vital Signs (Past 12 Hours) Vital Signs Temp Pulse Resp BP Pulse Ox O2 Del Method FiO2 08/01/22 11:30 99.0 F 77 20 117/49 L 94 08/01/22 11:15 116/54 L 08/01/22 11:15 99.1 F 76 23 93 08/01/22 11:00 99.1 F 73 24 115/50 L 96 08/01/22 10:45 102/61 08/01/22 10:30 109/65 08/01/22 10:30 99.1 F 60 39 H 98 08/01/22 10:15 99.1 F 62 19 100 08/01/22 10:15 110/54 L 08/01/22 10:00 99.3 F 56 L 15 100 08/01/22 10:00 104/45 L 08/01/22 09:45 99.1 F 58 L 15 100 08/01/22 09:45 97/49 L 08/01/22 09:30 103/49 L 08/01/22 09:30 99.1 F 58 L 15 100 08/01/22 09:00 99.3 F 59 L 16 99 08/01/22 09:00 117/53 L 08/01/22 08:45 106/48 L 08/01/22 08:45 99.1 F 59 L 17 98 08/01/22 08:30 111/54 L 08/01/22 08:30 99.1 F 61 17 99 08/01/22 08:15 101/53 L 08/01/22 08:15 99.1 F 65 19 100 08/01/22 08:00 99.1 F 62 18 100 08/01/22 08:00 104/50 L 08/01/22 07:45 93/47 L 08/01/22 07:45 99.1 F 56 L 15 100 08/01/22 07:30 108/51 L 08/01/22 07:30 99.1 F 65 20 99 08/01/22 07:16 99.1 F 58 L 15 100 08/01/22 07:16 98/44 L 08/01/22 07:00 99.1 F 67 16 100 08/01/22 07:00 118/61 08/01/22 08:00 Mechanical Vent 08/01/22 08:00 40 08/01/22 08:00 58 L 08/01/22 08:00 63 08/01/22 07:38 58 L 15 99 40 08/01/22 05:30 99.0 F 60 14 100 08/01/22 05:30 95/48 L 08/01/22 05:15 99.0 F 60 15 99 08/01/22 05:15 99/53 L 08/01/22 05:00 99.0 F 63 17 99 08/01/22 05:00 89/60 L 08/01/22 04:30 99.0 F 51 L 14 99 08/01/22 04:30 92/46 L 08/01/22 04:15 98.8 F 50 L 14 99 08/01/22 04:15 93/44 L 08/01/22 04:00 98.8 F 50 L 14 98 08/01/22 04:00 91/58 L 08/01/22 03:45 107/50 L 08/01/22 03:45 99.0 F 51 L 14 99 08/01/22 03:30 99.0 F 51 L 14 99 08/01/22 03:30 103/49 L 08/01/22 04:00 40 08/01/22 02:49 53 L 20 100 40 08/01/22 03:15 103/47 L 08/01/22 03:15 99.0 F 51 L 14 99 08/01/22 03:00 99.1 F 52 L 14 98 08/01/22 03:00 98/53 L 08/01/22 02:45 105/49 L 08/01/22 02:45 99.1 F 49 L 14 99 08/01/22 02:30 102/47 L 08/01/22 02:30 99.1 F 51 L 14 99 08/01/22 02:15 101/47 L 08/01/22 02:15 99.3 F 51 L 14 98 08/01/22 02:00 99.3 F 52 L 14 97 08/01/22 02:00 97/45 L PG Care Time/CCT Total # of Minutes Spent Total Time Spent with Patient: Total time spent is greater than 50% in coordination of care (as documented) at patient's floor/unit and/or counseling patient: Coding Level of Care Code 85715 Subseq Hosp Care Lvl 3 Diagnoses Acute [place] I21.3 Involved coronary artery: unspecified coronary artery Myocardial infarction type: ST elevation myocardial infarction (1) Acute [place] Involved coronary artery: unspecified coronary artery Myocardial infarction type: ST elevation myocardial infarction Qualified Code(s): I21.3 - ST elevation (STEMI) myocardial infarction of unspecified site
--- NOTE | 2022-08-01 13:52 | Hospitalist Progress Note ---
Date of Service August 01, 2022 Assessment & Plan (1) Cardiogenic shock: Plan: Reason Critically Ill: 81-year-old female with history of CAD and CABG presents to the ICU in cardiogenic shock requiring dopamine drip and balloon pump, following inferior STEMI and s/p WILBUR x1 to the RCA. -Secondary to inferior STEMI currently status post catheterization to the RCA -Wean phenylephrine per managed care specialist -Balloon pump discontinued by cardiology 07/31/22 -Continue to monitor pressures via A-line -Continue Lipitor, Plavix, aspirin -Continue to hold hypertensive agents in the setting of hypotension (2) Acute [place]: Plan: -Inferior STEMI secondary to 100% occlusion of the RCA, status post catheterization -Management per cardiology, appreciate recommendations -Currently off heparin drip, see additional planning above. (3) Anemia: Plan: -Hemoglobin at 10.6 today after receiving 2 units yesterday. Hemoglobin goal greater than 10 given recent NH. -Stable (4) Antiplatelet or antithrombotic long-term use: Plan: - Continue Plavix, aspirin (5) Hypertension: Plan: - Antihypertensives on hold in the setting of hypotension and on pressors. (6) Hyperlipidemia: Plan: - Continue Lipitor (7) CAD (coronary artery disease): Plan: - Continue Lipitor, Plavix, aspirin DVT prophylaxis: Contraindicated in the setting of acute blood loss Diet: N.p.o. given mechanical ventilation Disposition: ICU, possible downgrade tomorrow CODE STATUS: Full code Admission and Anticipated Discharge Date Admission Date: July 30, 2022 Supervising Physician Co-Signing Physician Notes chart reviewed, case d/w Dr Pillai. at bedside. ongoing critical care/ICU management. as above Subjective Patient seen at bedside this morning. No acute events reported overnight. Patient minimally responsive to verbal stimuli and questioning and answers appropriately. He was fatigued. No new or meaningful HPI at this time. Continues to gradually improve. Extubation to occur later in the day. Nothing else to report at this time. Review of Systems Review of Systems: Unobtainable due to endotracheal tube and Unobtainable due to reduced consciousness Physical Exam Constitutional: well developed, well nourished and + altered mental status Eyes: + anicteric sclerae Neck: normal visual inspection Respiratory: Auscultation: + bronchial breath sounds Cardiovascular: Rate/Rhythm: regular rate Gastrointestinal (Abdomen): Inspection/Auscultation: abdomen normal to inspection Skin: no rashes, warm and dry Neurologic: + obtunded Genitourinary: Sofia catheter present Results & Data Results & Data ([facility]) Vital Signs (Past 12 Hours) Vital Signs Temp Pulse Resp BP Pulse Ox O2 Del Method FiO2 08/01/22 11:30 37.2 C 77 20 117/49 L 94 08/01/22 11:15 116/54 L 08/01/22 11:15 37.3 C 76 23 93 08/01/22 11:00 37.3 C 73 24 115/50 L 96 08/01/22 10:45 102/61 08/01/22 10:30 109/65 08/01/22 10:30 37.3 C 60 39 H 98 08/01/22 10:15 37.3 C 62 19 100 08/01/22 10:15 110/54 L 08/01/22 10:00 37.4 C 56 L 15 100 08/01/22 10:00 104/45 L 08/01/22 09:45 37.3 C 58 L 15 100 08/01/22 09:45 97/49 L 08/01/22 09:30 103/49 L 08/01/22 09:30 37.3 C 58 L 15 100 08/01/22 09:00 37.4 C 59 L 16 99 08/01/22 09:00 117/53 L 08/01/22 08:45 106/48 L 08/01/22 08:45 37.3 C 59 L 17 98 08/01/22 08:30 111/54 L 08/01/22 08:30 37.3 C 61 17 99 08/01/22 08:15 101/53 L 08/01/22 08:15 37.3 C 65 19 100 08/01/22 08:00 37.3 C 62 18 100 08/01/22 08:00 104/50 L 08/01/22 07:45 93/47 L 08/01/22 07:45 37.3 C 56 L 15 100 08/01/22 07:30 108/51 L 08/01/22 07:30 37.3 C 65 20 99 08/01/22 07:16 37.3 C 58 L 15 100 08/01/22 07:16 98/44 L 08/01/22 07:00 37.3 C 67 16 100 08/01/22 07:00 118/61 08/01/22 08:00 Mechanical Vent 08/01/22 08:00 40 08/01/22 08:00 58 L 08/01/22 08:00 63 08/01/22 07:38 58 L 15 99 40 08/01/22 05:30 37.2 C 60 14 100 08/01/22 05:30 95/48 L 08/01/22 05:15 37.2 C 60 15 99 08/01/22 05:15 99/53 L 08/01/22 05:00 37.2 C 63 17 99 08/01/22 05:00 89/60 L 08/01/22 04:30 37.2 C 51 L 14 99 08/01/22 04:30 92/46 L 08/01/22 04:15 37.1 C 50 L 14 99 08/01/22 04:15 93/44 L 08/01/22 04:00 37.1 C 50 L 14 98 08/01/22 04:00 91/58 L 08/01/22 03:45 107/50 L 08/01/22 03:45 37.2 C 51 L 14 99 08/01/22 03:30 37.2 C 51 L 14 99 08/01/22 03:30 103/49 L 08/01/22 04:00 40 08/01/22 02:49 53 L 20 100 40 08/01/22 03:15 103/47 L 08/01/22 03:15 37.2 C 51 L 14 99 08/01/22 03:00 37.3 C 52 L 14 98 08/01/22 03:00 98/53 L 08/01/22 02:45 105/49 L 08/01/22 02:45 37.3 C 49 L 14 99 08/01/22 02:30 102/47 L 08/01/22 02:30 37.3 C 51 L 14 99 08/01/22 02:15 101/47 L 08/01/22 02:15 37.4 C 51 L 14 98 08/01/22 02:00 37.4 C 52 L 14 97 08/01/22 02:00 97/45 L (1) Acute [place] Involved coronary artery: unspecified coronary artery Myocardial infarction type: ST elevation myocardial infarction Qualified Code(s): I21.3 - ST elevation (STEMI) myocardial infarction of unspecified site
[2022-08-01] MEDS ORDERED: FUROSEMIDE 40 MG/4 ML VIAL IV ONE (19:51)
[2022-08-01] MEDS ORDERED: POTASSIUM CHLORIDE / WTR 10 MEQ/100 ML PLCT IV ONE (20:15)
[2022-08-01] MEDS: PANTOprazole 40 MG in SYRINGE 0 ML IV SCH (20:18)
[2022-08-02] MEDS: INSULIN ASPART PER UNIT SC SCH ×2 (01:49→06:15)
--- NOTE | 2022-08-02 06:03 | Electrocardiogram Report ---
Test Reason : Blood Pressure : / mmHG Vent. Rate : 075 BPM Atrial Rate : 075 BPM P-R Int : 176 ms QRS Dur : 080 ms QT Int : 402 ms P-R-T Axes : 052 022 186 degrees QTc Int : 448 ms Sinus rhythm with marked sinus arrhythmia Low voltage QRS Abnormal ECG When compared with ECG of 30-JUL-2022 01:10, ST no longer elevated in Inferior leads ST no longer depressed in Lateral leads Confirmed by Jakub Cruz [id number] on 08/02/2022 6:03:02 AM Referred By: Amari Valles Confirmed By:Jakub Cruz
[2022-08-02 06:35] LABS: Hematocrit (blood only) 30.7 % (34.1-44.9); Hemoglobin 10.2 g/dl (12.0-16.0); Mean Corpuscular Hemoglobin 28.9 pg (25.0-34.0); Mean Corpuscular Hgb Conc 33.2 g/dL (32.0-36.0); Mean Platelet Volume 11.3 fL (9.4-12.3); Nucleated RBC # (auto) 0.02 K/uL (0-0); Nucleated RBC % (auto) 0.4 %; Platelet Count 104 K/uL (130-400); RDW Coefficient of Variation 15.9 % (11.5-14.5); RDW Standard Deviation 50.2 fL (36.4-46.3); Red Blood Count 3.53 M/uL (3.93-5.22); White Blood Count 4.67 K/ul (4.8-10.8)
[2022-08-02 06:39] LABS: BUN Creatinine Ratio 12.5 (10-20); Calcium 7.3 mg/dl (8.5-10.1); Creatinine Clr Calc Pharmacy 40.9 ml/min; Est GFR (African American) 57.9 ml/min; Magnesium 2.2 mg/dl (1.7-2.4); Phosphorus 1.8 mg/dl (2.5-4.9); Potassium 3.7 mmol/L (3.5-5.1)
[2022-08-02] MEDS ORDERED: POTASSIUM PHOS 3 MMOL/1 ML INFUSION IV STA (06:48)
[2022-08-02 07:03] LABS: Acanthocytes 2+; Basophils # (auto) 0.03 K/uL (0-0.2); Basophils % (auto) 0.6 %; Echinocytes 1+; Eosinophils # (auto) 0.05 K/uL (0-0.50); Eosinophils % (auto) 1.1 %; Immature Granulocytes # (auto) 0.05 K/uL (0.00-0.02); Immature Granulocytes % (auto) 1.1 %; Lymphocytes # (auto) 0.36 K/uL (1.2-3.4); Lymphocytes % (auto) 7.7 %; Monocytes # (auto) 0.57 K/uL (0.24-0.82); Monocytes % (auto) 12.2 %; Neutrophils # (auto) 3.61 K/uL (1.4-6.5); Neutrophils % (auto) 77.3 %; Polychromasia 1+; Toxic Vacuolation 1+
[2022-08-02] MEDS ORDERED: POTASSIUM PHOSPHATE 15 MMOL in SODIUM CHLORIDE 0.9% 250 ML IV ONE (07:30)
--- NOTE | 2022-08-02 08:00 | Critical Care Progress Note ---
Date of Service August 02, 2022 Assessment & Plan (1) Acute IN: Plan: Reason Critically Ill: 81-year-old female with history of CAD and CABG presents to the ICU in cardiogenic shock requiring dopamine drip and balloon pump, following inferior STEMI and s/p WILBUR x1 to the RCA. Neuro - Confusion -Possible aspects of ICU delirium Cardiac - STEMI/cardiogenic shockstatus post cardiac cath with WILBUR x1 to the RCA. Prior grafts noted to be patent.: Resolved - Off heparin drip -Discontinued balloon pump 07/31 -Continuous monitor on telemetry -Lipitor, Plavix -81 mg chewable aspirin Respiratory - Acute hypoxic respiratory failureliberated from ventilator 08/01 GI - Passed bedside swallow, proceed with AHA diet Prior bloody NG output -While Ana-Sutton tear was in differential, did not appear to be ongoing losses no clinical intervention indicated at this time RENAL/LYTES - Acute kidney injury: Improving - Foleyshould be able to discontinue in next 24 to 48 hours, given dose of diuretic today ENDO - Continue ICU hyperglycemia protocol HEME - Acute blood loss anemia: Stable -Ecchymoses in right groin could be source of acute blood loss, GI losses also considered however there is no significant ongoing blood loss no clinical intervention is strongly indicated at this time ID - Medication for infectious process at this time LINES/IV ACCESS - Peripheral IVs, DVT PROPHYLAXIS - SCDs, Discussed with hospitalist service stable for downgrade out of ICU (2) Chest pain: (3) Cardiogenic shock: (4) Antiplatelet or antithrombotic long-term use: (5) History of coronary artery bypass graft: (6) Hypertension: (7) Hyperlipidemia: (8) CAD (coronary artery disease): Admission and Anticipated Discharge Date Admission Date: July 30, 2022 Subjective Mild confusion as far as location and events. Easily redirectable. No significant recollection of last 48-72 hours, remembers coming to the hospital for chest pain Review of Systems Review of Systems: Disoriented dated as described above, no chest pain Physical Exam Physical Exam: General: Alert, oriented to self redirectable to time and place Skin: Warm, dry, Head: Ecchymoses of right superior lip: Improved, tongue appears normal Ears, nose, mouth and throat: airway obscured by endotracheal tube Cardiovascular: normal capillary refill Respiratory: No respiratory distress Gastrointestinal: Non distended Groin/: Sofia catheter present, ecchymoses of right groin/inguinal area no expanding hematoma Musculoskeletal: No deformity -Right foot warm to touch adequate perfusion and capillary refill Results & Data Results & Data ([facility]) Vital Signs (Past 12 Hours) Vital Signs Temp Pulse Resp BP Pulse Ox O2 Del Method O2 Flow Rate 08/02/22 06:15 79 17 96 08/02/22 06:00 79 17 97 08/02/22 06:00 128/58 L 08/02/22 05:45 90 25 H 98 08/02/22 05:30 84 22 97 08/02/22 05:15 83 20 99 08/02/22 05:02 87 23 97 08/02/22 05:02 152/66 H 08/02/22 05:00 93 H 30 H 97 08/02/22 04:45 30.6 C L 93 H 26 H 92 08/02/22 04:30 36.8 C 100 H 21 99 08/02/22 04:17 36.8 C 86 22 100 08/02/22 04:17 145/65 H 08/02/22 04:15 36.8 C 91 H 25 H 100 08/02/22 04:01 36.8 C 97 H 18 98 08/02/22 04:01 134/96 08/02/22 04:00 36.8 C 89 22 99 08/02/22 03:45 36.8 C 91 H 24 100 08/02/22 03:45 143/70 H 08/02/22 03:31 36.9 C 98 H 25 H 100 08/02/22 03:31 129/93 08/02/22 03:30 36.9 C 101 H 26 H 100 08/02/22 03:15 36.9 C 97 H 22 99 08/02/22 03:15 117/99 08/02/22 03:00 36.9 C 83 23 100 08/02/22 03:00 129/64 08/02/22 02:50 134/57 L 08/02/22 02:50 36.9 C 84 21 100 08/02/22 02:45 36.9 C 83 19 100 08/02/22 02:31 120/70 08/02/22 02:31 36.9 C 80 24 100 08/02/22 02:30 36.9 C 88 21 100 08/02/22 02:16 36.9 C 82 19 100 08/02/22 02:16 144/64 H 08/02/22 02:15 36.9 C 79 19 100 08/02/22 02:03 37.0 C 74 20 100 08/02/22 01:45 37.0 C 78 19 100 08/02/22 01:45 127/58 L 08/02/22 01:30 37.1 C 74 22 100 08/02/22 01:30 128/57 L 08/02/22 01:15 37.1 C 74 19 99 08/02/22 01:15 129/55 L 08/02/22 01:02 37.2 C 96 H 21 100 08/02/22 01:02 138/59 L 08/02/22 01:00 37.2 C 87 23 98 08/02/22 00:45 37.2 C 74 21 100 08/02/22 00:45 129/56 L 08/02/22 00:30 37.3 C 72 20 100 08/02/22 00:15 37.3 C 67 18 99 08/02/22 00:15 127/52 L 08/02/22 00:00 101 H 08/01/22 21:45 37.2 C 73 19 100 08/01/22 21:45 112/50 L 08/01/22 21:30 37.2 C 92 H 22 98 08/01/22 21:30 118/76 08/01/22 21:15 37.1 C 77 22 97 08/01/22 21:15 130/48 L 08/01/22 21:00 37.1 C 77 22 96 08/01/22 21:00 128/59 L 08/01/22 20:45 37.1 C 84 23 99 08/01/22 20:45 142/55 H 08/01/22 20:30 37.1 C 84 24 97 08/01/22 20:30 142/64 H 08/01/22 20:15 37.2 C 92 H 27 H 98 08/01/22 20:15 112/92 08/01/22 20:00 37.1 C 71 19 98 08/01/22 20:00 119/55 L 08/01/22 21:00 Oxymask 6 Critical Care Results & Data Vital Signs (Past 12 Hours) Vital Signs Temp Pulse Resp BP Pulse Ox O2 Del Method O2 Flow Rate 08/02/22 06:15 79 17 96 08/02/22 06:00 79 17 97 08/02/22 06:00 128/58 L 08/02/22 05:45 90 25 H 98 08/02/22 05:30 84 22 97 08/02/22 05:15 83 20 99 08/02/22 05:02 87 23 97 08/02/22 05:02 152/66 H 08/02/22 05:00 93 H 30 H 97 08/02/22 04:45 30.6 C L 93 H 26 H 92 08/02/22 04:30 36.8 C 100 H 21 99 08/02/22 04:17 36.8 C 86 22 100 08/02/22 04:17 145/65 H 08/02/22 04:15 36.8 C 91 H 25 H 100 08/02/22 04:01 36.8 C 97 H 18 98 08/02/22 04:01 134/96 08/02/22 04:00 36.8 C 89 22 99 08/02/22 03:45 36.8 C 91 H 24 100 08/02/22 03:45 143/70 H 08/02/22 03:31 36.9 C 98 H 25 H 100 08/02/22 03:31 129/93 08/02/22 03:30 36.9 C 101 H 26 H 100 08/02/22 03:15 36.9 C 97 H 22 99 08/02/22 03:15 117/99 08/02/22 03:00 36.9 C 83 23 100 08/02/22 03:00 129/64 08/02/22 02:50 134/57 L 08/02/22 02:50 36.9 C 84 21 100 08/02/22 02:45 36.9 C 83 19 100 08/02/22 02:31 120/70 08/02/22 02:31 36.9 C 80 24 100 08/02/22 02:30 36.9 C 88 21 100 08/02/22 02:16 36.9 C 82 19 100 08/02/22 02:16 144/64 H 08/02/22 02:15 36.9 C 79 19 100 08/02/22 02:03 37.0 C 74 20 100 08/02/22 01:45 37.0 C 78 19 100 08/02/22 01:45 127/58 L 08/02/22 01:30 37.1 C 74 22 100 08/02/22 01:30 128/57 L 08/02/22 01:15 37.1 C 74 19 99 08/02/22 01:15 129/55 L 08/02/22 01:02 37.2 C 96 H 21 100 08/02/22 01:02 138/59 L 08/02/22 01:00 37.2 C 87 23 98 08/02/22 00:45 37.2 C 74 21 100 08/02/22 00:45 129/56 L 08/02/22 00:30 37.3 C 72 20 100 08/02/22 00:15 37.3 C 67 18 99 08/02/22 00:15 127/52 L 08/02/22 00:00 101 H 08/01/22 21:45 37.2 C 73 19 100 08/01/22 21:45 112/50 L 08/01/22 21:30 37.2 C 92 H 22 98 08/01/22 21:30 118/76 08/01/22 21:15 37.1 C 77 22 97 08/01/22 21:15 130/48 L 08/01/22 21:00 37.1 C 77 22 96 08/01/22 21:00 128/59 L 08/01/22 20:45 37.1 C 84 23 99 08/01/22 20:45 142/55 H 08/01/22 20:30 37.1 C 84 24 97 08/01/22 20:30 142/64 H 08/01/22 20:15 37.2 C 92 H 27 H 98 08/01/22 20:15 112/92 08/01/22 20:00 37.1 C 71 19 98 08/01/22 20:00 119/55 L 08/01/22 21:00 Oxymask 6 Lab & Micro Results (Past 24 Hours) RBC 3.53 M/uL (3.93-5.22) L 08/02/22 WBC 4.67 K/ul (4.8-10.8) L 08/02/22 Hgb 10.2 g/dl (12.0-16.0) L 08/02/22 Hct 30.7 % (34.1-44.9) L 08/02/22 MCV 87.0 fL (80.0-100.0) 08/02/22 MCH 28.9 pg (25.0-34.0) 08/02/22 MCHC 33.2 g/dL (32.0-36.0) 08/02/22 RDW Standard Deviation 50.2 fL (36.4-46.3) H 08/02/22 RDW Coefficient of Variation 15.9 % (11.5-14.5) H 08/02/22 Plt Count 104 K/uL (130-400) L 08/02/22 MPV 11.3 fL (9.4-12.3) 08/02/22 Nucleated Red Blood Cells % (auto) 0.4 % 08/02 Nucleated RBC Absolute Count (auto) 0.02 K/uL (0-0) H 07/06 07/26 Neutrophils (%) (Auto) 77.3 % 08/02/22 Lymphocytes (%) (Auto) 7.7 % 08/02/22 Monocytes # (Auto) 0.57 K/uL (0.24-0.82) 08/02/22 Eosinophils # (Auto) 0.05 K/uL (0-0.50) 08/02/22 Immature Granulocyte % (Auto) 1.1 % 08/02/22 Neutrophils # (Auto) 3.61 K/uL (1.4-6.5) 08/02/22 Lymphocytes # (Auto) 0.36 K/uL (1.2-3.4) L 08/02/22 Monocytes # (Auto) 0.57 K/uL (0.24-0.82) 08/02/22 Eosinophils # (Auto) 0.05 K/uL (0-0.50) 08/02/22 Basophils # (Auto) 0.03 K/uL (0-0.2) 08/02/22 Immature Granulocyte # (Auto) 0.05 K/uL (0.00-0.02) H 08/02 Polychromasia 1+ 08/02/22 Echinocytes 1+ 08/02/22 Toxic Vacuolation 1+ 08/02/22 Acanthocytes 2+ 08/02/22 Na 135 mmol/L (136-145) L 08/02/22 K 3.7 mmol/L (3.5-5.1) 08/02/22 Cl 103 mmol/L (98-107) 08/02/22 CO2 23 mmol/L (21-32) 08/02/22 Anion Gap 9 (3-11) 08/02/22 BUN 13 mg/dl (6-23) 08/02/22 Creatinine 1.04 mg/dl (0.6-1.2) 08/02/22 Estimated GFR ( Amer) 57.9 ml/min 08/02/22 Estimated GFR (Non-Af Amer) 50.0 ml/min 08/02/22 BUN/Creatinine Ratio 12.5 (10-20) 08/02/22 Glu 93 mg/dl (70-99(Fasting)) 08/02/22 Ca 7.3 mg/dl (8.5-10.1) L 08/02/22 Phosphorus Level 1.8 mg/dl (2.5-4.9) L 08/02/22 Mg 2.2 mg/dl (1.7-2.4) 08/02/22 05:29 Calcium Level 7.3 mg/dl (8.5-10.1) L 08/02/22 05:29 I & O Totals 24 Hours 08/01/22 08/02/22 08/03/22 06:59 06:59 06:59 Intake Total 4115.741 / 4115.741 1626.458 / 1626.458 Output Total 2192 / 2192 2996 / 2996 Balance 1923.741 / 1923.741 -1369.542 / -1369.542 Cumulative 07/30/22 00:52 thru 08/02/22 06:00 Intake Total 45019.443 Output Total 7870 Balance 6153.443 RT Ventilator Mngmt (Last Documented) Ventilator Ordered Settings Ventilator Support Mode Pressure Control 08/01/22 08:00 Respiratory Rate 17 08/02/22 06:15 Ventilator Tidal Volume 400 08/01/22 07:38 Setting Minute Ventilation 6 08/01/22 07:38 Ventilator Positive Pressure 10 08/01/22 08:00 Support Setting Positive End Expiratory 5 08/01/22 08:00 Pressure Fraction of Inspired Oxygen 40 08/01/22 08:00 Machine Comment pt placed back on AC settings to 07/31/22 18:15 rest, RN placed on sedation Ventilator - PT Measurements Respiratory Rate 17 Exhaled Tidal Volume 406 Minute Ventilation 6 Peak Inspiratory Airway 19 Pressure Plateau Pressure 17 Respiratory Cycle Inspiratory: 1:3.5 Expiratory Ratio Inspiratory Phase Time 0.9 End-Tidal CO2 27 Static Lung Compliance 33.83 Dynamic Lung Compliance 29.00 Normal Static Lung Compliance 47.00 Patient Measurements Comment [facility] Coding Level of Care Code 94615 Subseq Hosp Care Lvl 3 Diagnoses Acute IN I21.3 Involved coronary artery: unspecified coronary artery Myocardial infarction type: ST elevation myocardial infarction Chest pain R07.2 Chest pain type: precordial pain Cardiogenic shock R57.0 Antiplatelet or antithrombotic long-term use Z79.02 History of coronary artery bypass graft Z95.1 Hypertension I10 Hyperlipidemia E78.5 CAD (coronary artery disease) I25.10 (1) Acute IN Involved coronary artery: unspecified coronary artery Myocardial infarction type: ST elevation myocardial infarction Qualified Code(s): I21.3 - ST elevation (STEMI) myocardial infarction of unspecified site (2) Chest pain Chest pain type: precordial pain Qualified Code(s): R07.2 - Precordial pain
[2022-08-02] MEDS ORDERED: FUROSEMIDE INJ 20 MG/2 ML VIAL IV ONE (09:35)
[2022-08-02] MEDS: ATORVASTATIN 40 MG TAB PO SCH (10:04)
[2022-08-02] MEDS: PANTOprazole 40 MG in SYRINGE 0 ML IV SCH ×2 (10:04→20:27)
[2022-08-02] MEDS: CLOPIDOGREL BISULFATE 75 MG TAB PO SCH (10:04)
[2022-08-02] MEDS: ASPIRIN 81 MG CHEW PO SCH (10:04)
--- NOTE | 2022-08-02 10:40 | XRay Report ---
XR chest 1V portable CLINICAL HISTORY: INTUBATION TECHNIQUE: Single frontal radiograph of the chest was obtained. Comparison: Comparison is made to chest radiograph 11/23/2021 FINDINGS: Interval removal of previously noted lines and tubes. Median sternotomy wires are stable. Calcified a ortic knob is seen. Surgical clips are seen. Left basilar opacity is unchanged. Trace bilateral pleur al effusions. No evidence of pleural effusion or pneumothorax. IMPRESSION: 1. Interval removal of lines and tubes. 2. Left lower lung airspace opacity may represent atelectasis, pneumonia, and/or aspiration. 3. Unchanged pulmonary vascular congestion. 4. Trace bilateral pleural effusions. ACT 112: Negative or not required by law. Electronically signed by: Kendall Colbert M.D. 08/02/2022 10:39 AM
--- NOTE | 2022-08-02 11:23 | Pharmacy Report ---
Pharmacy Glycemic Sign Off Nt - Date of Service August 02, 2022 - Assessment & Plan ASSESSMENT: * Pharmacy was consulted by Dr Veliz on 07/30 for glycemic control and to write orders per [facility] inpatient glycemic control protocol. * Major changes made by pharmacy to antidiabetic regimen include: * None; transitioned off of insulin infusion, has not required any insulin since titrating off * Patient has been receiving/requiring 0 units of insulin per day for adequate glycemic control * BSGs ranging 92 107 mg/dl * Regimen has only required minor adjustments over the past 48hrs to achieve this level of control * Do not anticipate further changes in patient status that would quickly deteriorate glycemic control (i.e. patient to be NPO for upcoming procedure, steroids tapering, starting tube feedings, etc). * Please see recommendations for outpatient antidiabetic regimen below. PLAN FOR INPATIENT GLYCEMIC CONTROL: No changes needed to current regimen. * No basal needed at current time * Continue NovoLog per scale ACHS/Q6hrs while NPO * Goal range = 120 160 mg/dl * CF = 30 mg/dl/unit * CR = none currently ordered; could consider adding if BSGs trend up once diet improved * Pharmacy is signing off of glycemic consult and will no longer be making adjustments to inpatient regimen. Please feel free to re-consult if needed. Thank you.
[2022-08-02] MEDS ORDERED: FIRST - Mouthwash BLM 119 ML PO PRN ×2 (11:29→12:31)
[2022-08-02] MEDS ORDERED: INSULIN ASPART PER UNIT SC SCH (11:30)
--- NOTE | 2022-08-02 12:02 | Hospitalist Progress Note ---
Date of Service August 02, 2022 Assessment & Plan (1) Cardiogenic shock: Plan: Reason Critically Ill: 81-year-old female with history of CAD and CABG presents to the ICU in cardiogenic shock requiring dopamine drip and balloon pump, following inferior STEMI and s/p WILBUR x1 to the RCA. -Resolved -Secondary to inferior STEMI currently status post catheterization to the RCA -Pressors have been weaned off and is currently without pressor assistance with a MAP of greater than 65 -Balloon pump discontinued by cardiology 07/31/22 -Discontinue A-line -Continue Lipitor, Plavix, aspirin -Continue to hold hypertensive agents in the setting of recent hypotension -Discuss with cardiology in regards to restarting antihypertensive agents when able -Transfer to PCU given good progress and stability (2) Acute TN: Plan: -Inferior STEMI secondary to 100% occlusion of the RCA, status post catheterization -Management per cardiology, appreciate recommendations -Currently off heparin drip, see additional planning above. (3) Dysphagia: Plan: -Oropharyngeal injury secondary to endotracheal tube insertion -Speech consult placed, no current concern for aspiration likely just due to injury from trach as above -Converted diet to pured foods and added boost if unable to finish meals -Magic mouthwash to be given prior to each meal to help numb oral cavity (4) Anemia: Plan: -Hemoglobin at 10.2 today after receiving 2 units 07/31. Hemoglobin goal greater than 10 given recent TN. -Stable -Restarted DVT prophylaxis given stability of anemia (5) Antiplatelet or antithrombotic long-term use: Plan: - Continue Plavix, aspirin (6) Hypertension: Plan: - Antihypertensives on hold in the setting of hypotension and on pressors. (7) Hyperlipidemia: Plan: - Continue Lipitor (8) CAD (coronary artery disease): Plan: - Continue Lipitor, Plavix, aspirin DVT prophylaxis: Heparin Diet: Pureed heart healthy Disposition: Transfer to PCU CODE STATUS: Full code Admission and Anticipated Discharge Date Admission Date: July 30, 2022 Supervising Physician Co-Signing Physician Notes I personally examined the patient and verified all [place] points of history and exam, discussed case, and agree with decision making with Dr Freya quiroz. awake and talking. no other complaints at this time. d/w speech, input greatly appreciated vitals noted nad heent nc at mmm large ulcerated lesion on palate breathing unlabored no accessory muscles good effort neuro no focal deficits appears mildly confused TN, cardiogenic shock - off ventilator, balloon pump. showing progress. continue secondary risk reduction and supportive care mouth ulcer - symptomatic treatment, encourage PO intake as able DVT proph - heparin SQ for now, follow closely showing improvement, otherwise as above Subjective Patient seen at bedside this morning. No acute events reported overnight. Patient doing well this morning and is awake. Not quite sure where she is and unaware of what happened as she has been obtunded for the past 3 days. Asking questions about her care and where she is. I promptly reoriented her and informed her what is going on. She is overall pleasant and is very grateful for the care that she has received. Seems to be doing well and is not in any pain. Denies shortness of breath or chest pain. Overall no complaints at this time. Review of Systems Review of Systems: All systems reviewed & are unremarkable except as noted in HPI & below Physical Exam Constitutional: well developed, well nourished and + altered mental status Eyes: + anicteric sclerae ENMT: Mouth: + oral mucosal abnormality (Ecchymoses noted in the posterior pharynx) Neck: normal visual inspection Respiratory: normal respiratory effort; no respiratory distress and no labored breathing Auscultation: + bronchial breath sounds Cardiovascular: Rate/Rhythm: regular rate Gastrointestinal (Abdomen): Inspection/Auscultation: abdomen normal to inspection Skin: no rashes, warm and dry Ecchymoses noted in the right inguinal fold secondary to catheter insertion site. Psychiatric: Orientation: alert, oriented to person and cooperative; + not oriented to place and + not oriented to time Results & Data Results & Data ([facility]) Vital Signs (Past 12 Hours) Vital Signs Temp Pulse Resp BP Pulse Ox O2 Del Method O2 Flow Rate 08/02/22 08:00 Nasal Cannula 2 08/02/22 08:00 78 08/02/22 06:15 79 17 96 08/02/22 06:00 79 17 97 08/02/22 06:00 128/58 L 08/02/22 05:45 90 25 H 98 08/02/22 05:30 84 22 97 08/02/22 05:15 83 20 99 08/02/22 05:02 87 23 97 08/02/22 05:02 152/66 H 08/02/22 05:00 93 H 30 H 97 08/02/22 04:45 30.6 C L 93 H 26 H 92 08/02/22 04:30 36.8 C 100 H 21 99 08/02/22 04:17 36.8 C 86 22 100 08/02/22 04:17 145/65 H 08/02/22 04:15 36.8 C 91 H 25 H 100 08/02/22 04:01 36.8 C 97 H 18 98 08/02/22 04:01 134/96 08/02/22 04:00 36.8 C 89 22 99 08/02/22 03:45 36.8 C 91 H 24 100 08/02/22 03:45 143/70 H 08/02/22 03:31 36.9 C 98 H 25 H 100 08/02/22 03:31 129/93 08/02/22 03:30 36.9 C 101 H 26 H 100 08/02/22 03:15 36.9 C 97 H 22 99 08/02/22 03:15 117/99 08/02/22 03:00 36.9 C 83 23 100 08/02/22 03:00 129/64 08/02/22 02:50 134/57 L 08/02/22 02:50 36.9 C 84 21 100 08/02/22 02:45 36.9 C 83 19 100 08/02/22 02:31 120/70 08/02/22 02:31 36.9 C 80 24 100 08/02/22 02:30 36.9 C 88 21 100 08/02/22 02:16 36.9 C 82 19 100 08/02/22 02:16 144/64 H 08/02/22 02:15 36.9 C 79 19 100 08/02/22 02:03 37.0 C 74 20 100 08/02/22 01:45 37.0 C 78 19 100 08/02/22 01:45 127/58 L 08/02/22 01:30 37.1 C 74 22 100 08/02/22 01:30 128/57 L 08/02/22 01:15 37.1 C 74 19 99 08/02/22 01:15 129/55 L 08/02/22 01:02 37.2 C 96 H 21 100 08/02/22 01:02 138/59 L 08/02/22 01:00 37.2 C 87 23 98 08/02/22 00:45 37.2 C 74 21 100 08/02/22 00:45 129/56 L 08/02/22 00:30 37.3 C 72 20 100 08/02/22 00:15 37.3 C 67 18 99 08/02/22 00:15 127/52 L 08/02/22 00:00 101 H (1) Acute [place] Involved coronary artery: unspecified coronary artery Myocardial infarction type: ST elevation myocardial infarction Qualified Code(s): I21.3 - ST elevation (STEMI) myocardial infarction of unspecified site
--- NOTE | 2022-08-02 16:24 | Billing Data ---
Date of Service August 02, 2022 Coding Level of Care Code 54074 Subseq Hosp Care Lvl 3
[2022-08-02] MEDS: HEPARIN SOD 5,000 UNIT/0.5 ML VIAL SQ SCH (20:30)
--- NOTE | 2022-08-02 21:24 | Electrocardiogram Report ---
Test Reason : Blood Pressure : / mmHG Vent. Rate : 088 BPM Atrial Rate : 088 BPM P-R Int : 172 ms QRS Dur : 086 ms QT Int : 370 ms P-R-T Axes : 067 035 087 degrees QTc Int : 447 ms Normal sinus rhythm with sinus arrhythmia Nonspecific ST and T wave abnormality Abnormal ECG When compared with ECG of 01-AUG-2022 12:45, Nonspecific T wave abnormality, improved in Inferior leads T wave inversion less evident in Anterolateral leads Confirmed by Jakub Cruz ([id number]) on 08/02/2022 9:24:18 PM Referred By: Amari Valles Confirmed By:Jakub Cruz
--- NOTE | 2022-08-02 22:14 | Cardiology Progress Note ---
Date of Service August 02, 2022 Assessment & Plan (1) Acute IN: Plan: Post PCI with WILBUR to RCA Atretic HANKS to distal LAD, patent SVG to diagonal with retrofilling to LAD 2. Preserved LV functionEF 55% with inferior wall motion abnormality 3. RV dysfunction on echo 4. Sinus bradycardia 5. Anemia 6. Thrombocytopenia 7. Hyponatremia 8. ZORAN - resolved Doing well from a cardiac standpoint. No chest pain. Troponin downtrending Hemodynamically stable off pressors. Electrically stable. Good urine output post IV Lasix Hemoglobin, platelets stable. Continue DAPT with aspirin, clopidogrel. Continue current statin Start metoprolol 12.5 mg twice daily and losartan 25 mg tomorrow. Admission and Anticipated Discharge Date Admission Date: July 30, 2022 Subjective Seen this afternoon in PCU. Denies any chest pain. Reports soreness in her throat. Denies shortness of breath. Reports good appetite, and moving her bowels. Review of Systems Review of Systems: All systems reviewed & are unremarkable except as noted in HPI & below Physical Exam Physical Exam: General: Sitting up in bed with nasal cannula, awake HEENT: Sclerae Lungs: No crackles Cardiac: Regular rate, distant heart sounds, no murmurs Vascular: 2+ bilateral radial pulse Ecchymosis RT [employer] extending to midline. No clear hematoma. Abdomen: Soft Extremities: Extremities warm, no edema Results & [facility] ([facility]) Vital Signs (Past 12 Hours) Vital Signs Temp Pulse Pulse Pulse Resp BP BP 08/02/22 19:52 98.1 F 85 20 155/80 H 08/02/22 12:30 98.2 F 78 18 08/02/22 16:02 97.9 F 79 19 08/02/22 12:05 08/02/22 11:00 70 21 125/71 08/02/22 11:00 98.4 F BP BP Pulse Ox O2 Del Method O2 Flow Rate 08/02/22 19:52 91 Nasal Cannula 0.5 08/02/22 12:30 124/76 97 Nasal Cannula 2 08/02/22 16:02 139/68 92 Nasal Cannula 1 08/02/22 12:05 Nasal Cannula 2 08/02/22 11:00 100 08/02/22 11:00 PG Care Time/CCT Total # of Minutes Spent Total Time Spent with Patient: Total time spent is greater than 50% in coordination of care (as documented) at patient's floor/unit and/or counseling patient: Coding Level of Care Code 08620 Subseq Hosp Care Lvl 3 Diagnoses Acute IN I21.3 Involved coronary artery: unspecified coronary artery Myocardial infarction type: ST elevation myocardial infarction (1) Acute IN Involved coronary artery: unspecified coronary artery Myocardial infarction type: ST elevation myocardial infarction Qualified Code(s): I21.3 - ST elevation (STEMI) myocardial infarction of unspecified site
[2022-08-03] MEDS ORDERED: XOPENEX/ATROVENT 0.63mg/0.5MG NEB COMBO NEB SCH (07:00)
[2022-08-03] MEDS: LEVALBUTEROL HCL 0.63 MG/3 ML NEB NEB SCH ×2 (07:04→12:38)
[2022-08-03] MEDS: IPRATROPIUM BROMIDE NEB SOLN 0.02% 2.5 ML VIAL INH SCH ×2 (07:04→12:38)
--- NOTE | 2022-08-03 07:28 | XRay Report ---
XR chest 1V portable CLINICAL HISTORY: Shortness of breath. Recent [place]. COMPARISON STUDY: Chest radiograph August 01, 2022. FINDINGS: Median sternotomy wires and mediastinal surgical clips are noted. Elevation the right hemid iaphragm is unchanged. Pulmonary vascular congestion is similar to prior exam. There is no evidence f or pulmonary edema. Small left pleural effusion is noted. Persistent bibasilar opacities. Cardiomedia stinal silhouette is stable. IMPRESSION: No change in pulmonary vascular congestion with a small left pleural effusion and bibasi lar opacities. ACT 112: Negative or not required by law. Electronically signed by: Ross Call M.D. 08/03/2022 7:26 AM
[2022-08-03 07:52] LABS: Basophils # (auto) 0.04 K/uL (0-0.2); Basophils % (auto) 0.6 %; Eosinophils # (auto) 0.09 K/uL (0-0.50); Eosinophils % (auto) 1.4 %; Hematocrit (blood only) 31.1 % (34.1-44.9); Hemoglobin 10.5 g/dl (12.0-16.0); Immature Granulocytes # (auto) 0.17 K/uL (0.00-0.02); Immature Granulocytes % (auto) 2.6 %; Lymphocytes % (auto) 10.5 %; Mean Corpuscular Hemoglobin 29.2 pg (25.0-34.0); Mean Corpuscular Hgb Conc 33.8 g/dL (32.0-36.0); Mean Corpuscular Volume 86.6 fL (80.0-100.0); Mean Platelet Volume 9.9 fL (9.4-12.3); Monocytes # (auto) 0.69 K/uL (0.24-0.82); Monocytes % (auto) 10.4 %; Neutrophils # (auto) 4.97 K/uL (1.4-6.5); Neutrophils % (auto) 74.5 %; Nucleated RBC # (auto) 0.02 K/uL (0-0); Nucleated RBC % (auto) 0.3 %; Platelet Count 152 K/uL (130-400); RDW Coefficient of Variation 15.8 % (11.5-14.5); RDW Standard Deviation 49.7 fL (36.4-46.3); Red Blood Count 3.59 M/uL (3.93-5.22); White Blood Count 6.66 K/ul (4.8-10.8)
--- NOTE | 2022-08-03 08:14 | Hospitalist Progress Note ---
Date of Service August 03, 2022 Assessment & Plan (1) Cardiogenic shock: Plan: Reason Critically Ill: 81-year-old female with history of CAD and CABG presents to the ICU in cardiogenic shock requiring dopamine drip and balloon pump, following inferior STEMI and s/p WILBUR x1 to the RCA. Cardiogenic shock -Resolved -Secondary to inferior STEMI currently status post catheterization to the RCA -Pressors have been weaned off and is currently without pressor assistance with a MAP of greater than 65 -Balloon pump discontinued by cardiology 07/31/22 -Discontinued A-line -Continue Lipitor, Plavix, aspirin -Continue to hold hypertensive agents in the setting of recent hypotension -Cardiology recommended restarting antihypertensive (see below) -Now in PCU given good progress and stability Confusion -No prior history. According the patient's , patient is independent at baseline, requires no help with ADLs, ambulates at home without any assistive devices, and drives. She has no home oxygen requirement nor home health services. -Suspect delirium secondary to prolonged hospital stay. Recommend supportive management for now open windows daytime, frequent orientation to time, place. -Per physical therapy: Recommend transfer to acute rehab facility. Currently attempting referral to [facility] inpatient rehab facility.Awaiting response from facility. Acute [place] -Inferior STEMI secondary to 100% occlusion of the RCA, status post catheterization -Management per cardiology, appreciate recommendations -Currently off heparin drip, see additional planning above. Dysphagia -Oropharyngeal injury secondary to endotracheal tube insertion -Speech consult placed, no current concern for aspiration likely just due to injury from trach as above -Converted diet to pured foods and added boost if unable to finish meals -Magic mouthwash to be given prior to each meal to help numb oral cavity Anemia -Hemoglobin at 10.2 today after receiving 2 units 07/31. Hemoglobin goal greater than 10 given recent NM. -Stable -Restarted DVT prophylaxis given stability of anemia Hypertension Initially held due to cardiogenic shock, hypotension, use of pressors. * Metoprolol tartrate 12.5 mg twice daily. * Trend pressures Long-term antiplatelet/antithrombotic use: Continue home Plavix, aspirin Hyperlipidemia: Started on Lipitor. Med list shows prior use of ezetimibe, although it is unclear if she was still using prior to admission. Will clarify. CAD: Lipitor, aspirin, Plavix, as above. Code: Full code DNR/DNI Dispo: PCU FEN/GI: Pured heart healthy DVT Prophylaxis: Heparin 5000 units SQ every 12 hours PT/OT: Yes Consults: Cardiology Case management: (2) Acute NM: (3) Dysphagia: (4) Anemia: (5) Antiplatelet or antithrombotic long-term use: (6) Hypertension: (7) Hyperlipidemia: Plan: - Continue Lipitor (8) CAD (coronary artery disease): Plan: - Continue Lipitor, Plavix, aspirin DVT prophylaxis: Heparin Diet: Pureed heart healthy Disposition: Transfer to [facility] CODE STATUS: Full code Admission and Anticipated Discharge Date Admission Date: July 30, 2022 Supervising Physician Co-Signing Physician Notes I personally examined the patient and verified all [place] points of history and exam, discussed case, and agree with decision making with Dr oMntez Mouth hurts less. Eating better. Breathing okay. Notes that she feels like "I lost my mind". vitals noted nad heent nc at mmm large ulcerated lesion on palate and tongue bruisingbut appears less irritated than yesterday. Breathing unlabored no accessory muscles good effort lungs are clear without rales rhonchi or wheezes neuro no focal deficits appears mildly confused NM, cardiogenic shock - off ventilator, balloon pump. Showing nice progress. Ongoing secondary risk reduction and supportive care. mouth ulcer - symptomatic treatment, encourage PO intake as able, this is improving DVT proph - heparin SQ for now, follow closely showing improvement, otherwise as above anticipate need for rehab Subjective Per nursing, patient appeared confused overnight. There was also some concern for wheeze, which turned out to be mucus ballpatient felt fine after coughing up. This morning, she is feeling fine. She has no acute complaints at this time. She is yet to have breakfast. Review of Systems Review of Systems: All systems reviewed & are unremarkable except as noted in HPI & below Physical Exam Physical Exam: General: Well-appearing, alert, interactive, and in no acute distress. HEENT: Normocephalic, atraumatic. EOM intact. Good conjugate gaze. Nares patent. Moist mucosal membranes. Lips appear dark. Neck: Supple. No lymphadenopathy. Normal ROM. CV: Regular rate and rhythm. Normal S1 and S2. No murmurs gallops or rubs. Respiratory: Normal respiratory effort. Lungs clear to auscultation bilaterally. No crackles, rhonchi, or wheezes. Abdomen: Soft, nondistended abdomen. No bruits heard on auscultation. No tenderness to deep palpation. No guarding or rebound. Extremities: Capillary refill <2 sec. 2+ dp equal bilaterally. No pedal edema. Neuro: Alert and oriented x3. Skin: Clean, dry, and intact. No rashes, bruises, or erythema. Results & Data Results & Data ([facility]) Vital Signs (Past 12 Hours) Vital Signs Temp Pulse Pulse Resp BP BP Pulse Ox 08/03/22 07:04 79 16 97 08/03/22 06:48 36.6 C 77 16 166/75 H 95 08/03/22 03:51 36.9 C 79 22 148/73 H 96 08/03/22 00:00 83 08/02/22 22:47 36.9 C 85 20 155/73 H 93 O2 Del Method O2 Flow Rate 08/03/22 07:04 Nasal Cannula 1 08/03/22 06:48 Nasal Cannula 2 08/03/22 03:51 Nasal Cannula 2 08/03/22 00:00 08/02/22 22:47 Nasal Cannula 0.5 Resident Activity Tracking Resident Involvement: Resident Care Provided Care Provided: Adult Hospital Medicine (1) Acute [place] Involved coronary artery: unspecified coronary artery Myocardial infarction type: ST elevation myocardial infarction Qualified Code(s): I21.3 - ST elevation (STEMI) myocardial infarction of unspecified site
[2022-08-03 08:17] LABS: Albumin Globulin Ratio 1.1 (0.9-2); BUN Creatinine Ratio 17.1 (10-20); Bilirubin,Total 2.4 mg/dl (0.2-1.0); Calcium 7.6 mg/dl (8.5-10.1); Creatinine Clr Calc Pharmacy 51.2 ml/min; Est GFR (African American) 77.2 ml/min; Est GFR (Non-African American) 66.6 ml/min; Globulin 2.8 gm/dl (2.5-4.0); Magnesium 2.3 mg/dl (1.7-2.4); Phosphorus 1.7 mg/dl (2.5-4.9); Potassium 3.3 mmol/L (3.5-5.1); Total Protein 5.8 gm/dl (6.0-8.3)
[2022-08-03] MEDS: HEPARIN SOD 5,000 UNIT/0.5 ML VIAL SQ SCH ×2 (08:59→20:48)
[2022-08-03] MEDS: METOPROLOL TARTRATE 25 MG TAB PO SCH ×2 (08:59→20:49)
[2022-08-03] MEDS: ATORVASTATIN 40 MG TAB PO SCH (08:59)
[2022-08-03] MEDS: PANTOprazole 40 MG in SYRINGE 0 ML IV SCH ×2 (08:59→20:48)
[2022-08-03] MEDS: ASPIRIN 81 MG CHEW PO SCH (08:59)
[2022-08-03] MEDS: CLOPIDOGREL BISULFATE 75 MG TAB PO SCH (09:00)
[2022-08-03] MEDS ORDERED: LEVALBUTEROL HCL 0.63 MG/3 ML NEB NEB PRN (13:47)
[2022-08-03] MEDS ORDERED: IPRATROPIUM BROMIDE NEB SOLN 0.02% 2.5 ML VIAL INH PRN (13:47)
[2022-08-03] MEDS ORDERED: COUGH DROP (SUGAR FREE) LOZ 24 LOZ/1 BOX BUCCAL ONE (16:00)
--- NOTE | 2022-08-03 17:47 | Billing Data ---
Date of Service August 03, 2022 Coding Level of Care Code 87183 Subseq Hosp Care Lvl 3
--- NOTE | 2022-08-03 21:01 | Cardiology Progress Note ---
Date of Service August 03, 2022 Assessment & Plan (1) Acute [place]: Plan: Post PCI with WILBUR to RCA Atretic HANKS to distal LAD, patent SVG to diagonal with retrofilling to LAD 2. Preserved LV functionEF 55% with inferior wall motion abnormality 3. RV dysfunction on echo 4. Sinus bradycardia 5. Anemia 6. Thrombocytopenia 7. Hyponatremia 8. ZORAN - resolved Continues to do well cardiac standpoint. No chest pain. Hemodynamically and electrically stable. Good urine output. No significant congestion on exam Hemoglobin, platelets stable. Continue DAPT with aspirin, clopidogrel. Continue PPI Continue current statin Continue metoprolol 12.5 mg twice daily. Start losartan 25mg daily. From a cardiac standpoint OK for discharge when rehab available. On discharge f/up with Dr. Ryan Admission and Anticipated Discharge Date Admission Date: July 30, 2022 Subjective Seen this afternoon in PCU. Sitting up in chair. Denies chest pain or shortness of breath. Tired walking across room to bathroom. Tele reviewed -- no events. 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 No clear hematoma. Abdomen: Soft Extremities: Extremities warm, no edema Results & Data ([facility]) Vital Signs (Past 12 Hours) Vital Signs Temp Pulse Pulse Resp BP Pulse Ox Pulse Ox 08/03/22 18:59 99.5 F 81 18 140/65 93 08/03/22 16:00 08/03/22 15:56 98.2 F 80 18 139/72 97 08/03/22 12:38 81 16 96 08/03/22 11:11 98.2 F 72 18 122/62 95 08/03/22 10:43 93 Pulse Ox O2 Del Method 08/03/22 18:59 Room Air 08/03/22 16:00 Nasal Cannula 08/03/22 15:56 Room Air 08/03/22 12:38 Room Air 08/03/22 11:11 Room Air 08/03/22 10:43 96 PG Care Time/CCT Total # of Minutes Spent Total Time Spent with Patient: Total time spent is greater than 50% in coordination of care (as documented) at patient's floor/unit and/or counseling patient: Coding Level of Care Code 85659 Subseq Hosp Care Lvl 3 Diagnoses Acute [place] I21.3 Involved coronary artery: unspecified coronary artery Myocardial infarction type: ST elevation myocardial infarction (1) Acute [place] Involved coronary artery: unspecified coronary artery Myocardial infarction type: ST elevation myocardial infarction Qualified Code(s): I21.3 - ST elevation (STEMI) myocardial infarction of unspecified site
--- NOTE | 2022-08-03 21:50 | Electrocardiogram Report ---
Test Reason : Blood Pressure : / mmHG Vent. Rate : 075 BPM Atrial Rate : 075 BPM P-R Int : 176 ms QRS Dur : 088 ms QT Int : 386 ms P-R-T Axes : 057 031 121 degrees QTc Int : 431 ms Normal sinus rhythm Abnormal ECG When compared with ECG of 02-AUG-2022 04:58, Nonspecific T wave abnormality, worse in Inferior leads Confirmed by Jakub Cruz ([id number]) on 08/03/2022 9:50:22 PM Referred By: Amari Valles Confirmed By:Jakub Cruz
[2022-08-04 06:38] LABS: Hematocrit (blood only) 31.2 % (34.1-44.9); Hemoglobin 10.7 g/dl (12.0-16.0); Mean Corpuscular Hemoglobin 29.3 pg (25.0-34.0); Mean Corpuscular Hgb Conc 34.3 g/dL (32.0-36.0); Mean Corpuscular Volume 85.5 fL (80.0-100.0); Mean Platelet Volume 9.4 fL (9.4-12.3); Nucleated RBC # (auto) 0.02 K/uL (0-0); Nucleated RBC % (auto) 0.3 %; Platelet Count 168 K/uL (130-400); RDW Coefficient of Variation 15.9 % (11.5-14.5); RDW Standard Deviation 49.1 fL (36.4-46.3); Red Blood Count 3.65 M/uL (3.93-5.22); White Blood Count 7.35 K/ul (4.8-10.8)
[2022-08-04 07:12] LABS: ALC (manual) 0.88 K/uL (1.2-3.4); ANC (manual) 5.95 K/uL (1.4-6.5); Eosinophils # (manual) 0.15 K/uL (0-0.50); Eosinophils % (manual) 2 %; Lymphocytes # (manual) 0.88 K/uL (1.2-3.4); Lymphocytes % (manual) 12 %; Monocytes # (manual) 0.29 K/uL (0.24-0.82); Monocytes % (manual) 4 %; Myelocytes # (manual) 0.07 K/uL (0-0); Myelocytes % (manual) 1 %; Neutrophils # (manual) 5.95 K/uL (1.4-6.5); Neutrophils % (manual) 81 %
[2022-08-04 07:58] LABS: Albumin Level 2.8 gm/dl (3.4-5.0); BUN Creatinine Ratio 19.2 (10-20); Bilirubin,Total 2.1 mg/dl (0.2-1.0); Calcium 7.7 mg/dl (8.5-10.1); Creatinine Clr Calc Pharmacy 54.1 ml/min; Est GFR (African American) 82.1 ml/min; Est GFR (Non-African American) 70.8 ml/min; Globulin 2.8 gm/dl (2.5-4.0); Magnesium 2.1 mg/dl (1.7-2.4); Phosphorus 1.8 mg/dl (2.5-4.9); Potassium 3.4 mmol/L (3.5-5.1); Total Protein 5.6 gm/dl (6.0-8.3)
--- NOTE | 2022-08-04 08:16 | Hospitalist Progress Note ---
Date of Service August 04, 2022 Assessment & Plan (1) Cardiogenic shock: Plan: 81-year-old woman with history of CAD (s/p CABG) who presented to the ICU with cardiogenic shock due to inferior STEMI requiring pressors, balloon pump, s/p WILBUR x1 to the RCA. Cardiogenic shock (now resolved) -Secondary to inferior STEMI currently status post cath to the RCA. -Pressors have been weaned off and is currently without pressor assistance with MAP >65 -Balloon pump discontinued by cardiology on 07/31/2022. -Patient subsequently improved. A-line discontinued. Downgraded to PCU for further care. -Currently awaiting placement in acute rehab, [facility]. * Continue Lipitor, aspirin, Plavix * Restarted metoprolol (tartrate) 12.5 mg twice daily. Now on metoprolol succinate 25 mg daily. Monitor vitals. Confusion -New since admission. No prior history. Per , patient independent at baseline, completes ADLs, ambulates at home without assistance, and drives. No prior home oxygen requirement. -Suspect delirium secondary to prolonged hospital stay, disorientation. * Supportive management opening windows during daytime, frequent reorientation as needed to time & place. * Awaiting placement at acute rehab, [facility]. Dysphagia (resolved) -Oropharyngeal injury secondary to endotracheal tube insertion -Speech consult placed: No current concern for aspiration. Suspect trach injury. -Diet converted to pured foods, with boost for meal supplementation as needed -Currently eating well. Advanced diet at lunch (easy to chew formally pured). Will follow-up, advance again if tolerated. * Magic mouthwash prior to mealtime for oral numbing Anemia -S/p pRBC x2 on 07/31. Stable. Consider resolved. Hypertension -Antihypertensives restarted by cardiology after being initially held for presenting cardiogenic shock. * Metoprolol succinate 25 mg daily. Monitor vitals, as above. Coronary artery disease: Home Plavix, aspirin Hyperlipidemia: Started on Lipitor 40 mg every morning. Code: Full code Dispo: PCU. Awaiting placement at acute rehab ([facility]) FEN/GI: Pured heart healthy DVT Prophylaxis: Heparin 5000 mg SQ every 12 hours PT/OT: Consulted Consults: Cardiology Case management: On board (2) Acute [place]: (3) Dysphagia: (4) Anemia: (5) Antiplatelet or antithrombotic long-term use: (6) Hypertension: (7) Hyperlipidemia: (8) CAD (coronary artery disease): Admission and Anticipated Discharge Date Admission Date: July 30, 2022 Supervising Physician Co-Signing Physician Notes I personally examined the patient and verified all [place] points of history and exam, discussed case, and agree with decision making with Dr Montez eating pretty well, breathing feels OK. vitals noted nad heent nc at mmm. Breathing unlabored no accessory muscles good effort lungs are clear without rales rhonchi or wheezes neuro no focal deficits appears mildly confused, trace b/l LE edema [place], cardiogenic shock - off ventilator, balloon pump. Showing nice progress. Ongoing secondary risk reduction and supportive care. dopplers for edema to r/o DVT - on room air with clear lungs doubt acute failure mouth ulcer - symptomatic treatment, improving DVT proph - heparin SQ for now, follow closely, dopplers as above showing improvement, otherwise as above anticipate need for rehab Subjective Per nursing, patient had 1-2 episodes of confusion but otherwise had an uneventful course overnight. This morning, patient is alert and oriented. She reports some bilateral pedal edema, which is new to her. Otherwise, she feels improved from yesterday. She would like to try a more advanced diet than the pured food she has been eating. She denies headache, chest pain, shortness of breath, abdominal pain, or nausea. Review of Systems Review of Systems: All systems reviewed & are unremarkable except as noted in HPI & below Physical Exam Physical Exam: General: Well-appearing, alert, interactive, and in no acute distress. HEENT: Normocephalic, atraumatic. EOM intact. Good conjugate gaze. Nares patent. Moist mucosal membranes. Neck: Supple. No lymphadenopathy. Normal ROM. CV: Regular rate and rhythm. Normal S1 and S2. No murmurs gallops or rubs. Respiratory: Normal respiratory effort. Lungs clear to auscultation bilaterally. No crackles, rhonchi, or wheezes. Abdomen: Soft, nondistended abdomen. No bruits heard on auscultation. No tenderness to deep palpation. No guarding or rebound. Extremities: Capillary refill <2 sec. 2+ dp equal bilaterally. No pedal edema. Neuro: Alert and oriented x3. Skin: Clean, dry, and intact. No rashes, bruises, or erythema. Results & Data Results & Data ([facility]) Vital Signs (Past 12 Hours) Vital Signs Temp Pulse Pulse Pulse Resp BP BP 08/04/22 06:59 37.1 C 64 19 128/59 L 08/04/22 03:00 37.4 C 79 16 143/75 H 08/03/22 20:00 08/04/22 00:00 70 08/03/22 22:27 37.4 C 73 18 135/83 Pulse Ox O2 Del Method 08/04/22 06:59 95 Room Air 08/04/22 03:00 93 Room Air 08/03/22 20:00 Room Air 08/04/22 00:00 08/03/22 22:27 95 Room Air Resident Activity Tracking Resident Involvement: Resident Care Provided Care Provided: Adult Hospital Medicine (1) Acute [place] Involved coronary artery: unspecified coronary artery Myocardial infarction type: ST elevation myocardial infarction Qualified Code(s): I21.3 - ST elevat ion (STEMI) myocardial infarction of unspecified site
[2022-08-04] MEDS: PANTOprazole 40 MG in SYRINGE 0 ML IV SCH ×2 (08:50→20:54)
[2022-08-04] MEDS: ASPIRIN 81 MG CHEW PO SCH (08:50)
[2022-08-04] MEDS: LOSARTAN POTASSIUM 25 MG TAB PO SCH (08:50)
[2022-08-04] MEDS: CLOPIDOGREL BISULFATE 75 MG TAB PO SCH (08:50)
[2022-08-04] MEDS: ATORVASTATIN 40 MG TAB PO SCH (08:50)
[2022-08-04] MEDS: HEPARIN SOD 5,000 UNIT/0.5 ML VIAL SQ SCH ×2 (08:51→20:54)
[2022-08-04] MEDS: METOPROLOL SUCC 25MG EXT REL TAB PO SCH (10:03)
--- NOTE | 2022-08-04 16:46 | Billing Data ---
Date of Service August 04, 2022 Coding Level of Care Code 91269 Subseq Hosp Care Lvl 3
--- NOTE | 2022-08-04 17:13 | Ultrasound Report ---
ULTRASOUND BILATERAL LOWER EXTREMITY VENOUS CLINICAL HISTORY: Lower extremity edema COMPARISON STUDY: No priors TECHNIQUE: Real-time, grayscale, and color Doppler sonography of the deep veins of the right and left lower extremity was performed from the inguinal crease to the calf. Compression and augmentation wer e utilized. FINDINGS: Right lower extremity: The right common femoral vein as well as the profunda femoris and greater saph enous veins at the junction with the common femoral vein could not be assessed due to overlying paz ge material. The superficial femoral and popliteal veins are patent and normally compressible. The vi sualized calf veins are patent. Left lower extremity: The common femoral, superficial femoral, and popliteal veins are patent and nor jess compressible. The greater saphenous vein and the profunda femoris vein at the junction with the common femoral vein are clear. The visualized calf veins are patent. IMPRESSION: There is no sonographic evidence of deep venous thrombosis in the right or left lower ext remity. See above. ACT 112: Negative or not required by law. Electronically signed by: Myles Ramirez M.D. 08/04/2022 5:12 PM
--- NOTE | 2022-08-05 06:59 | Hospitalist Progress Note ---
Date of Service August 05, 2022 Assessment & Plan (1) Cardiogenic shock: Plan: 81-year-old woman with history of CAD (s/p CABG) who presented to the ICU with cardiogenic shock due to inferior STEMI requiring pressors, balloon pump, s/p WILBUR x1 to the RCA. Cardiogenic shock (now resolved) -Secondary to inferior STEMI currently status post cath to the RCA. -Pressors have been weaned off and is currently without pressor assistance with MAP >65 -Balloon pump discontinued by cardiology on 07/31/2022. -Patient subsequently improved. A-line discontinued. Downgraded to PCU for further care. -Currently awaiting placement in acute rehab, likely [facility]. * Continue Lipitor, aspirin, Plavix * Metoprolol succinate 25 mg daily. BP well controlled as before Confusion -New since admission. No prior history. Per , patient independent at baseline, completes ADLs, ambulates at home without assistance, and drives. No prior home oxygen requirement. -Suspect delirium secondary to prolonged hospital stay, disorientation. * Supportive management opening windows during daytime, frequent reorientation as needed to time & place. * Awaiting placement at acute rehab, [facility]. Acute rehab placement now tentative, pending completion of peer to peer call. Dysphagia (resolved) -Oropharyngeal injury secondary to endotracheal tube insertion -Speech consult placed: No current concern for aspiration. Suspect trach injury. -Diet converted to pured foods, with boost for meal supplementation as needed -Tolerating regular diet. * Magic mouthwash prior to mealtime for oral numbing Anemia -S/p pRBC x2 on 07/31. Stable. Consider resolved. Hypertension -Antihypertensives restarted by cardiology after being initially held for pre senting cardiogenic shock. * Metoprolol succinate 25 mg daily. Monitor vitals, as above. Coronary artery disease: Home Plavix, aspirin Hyperlipidemia: Started on Lipitor 40 mg every morning. Code: Full code Dispo: PCU. Awaiting placement at acute rehab ([facility]) FEN/GI: Pured heart healthy DVT Prophylaxis: Heparin 5000 mg SQ every 12 hours PT/OT: Consulted Consults: Cardiology Case management: On board (2) Acute [place]: (3) Dysphagia: (4) Anemia: (5) Antiplatelet or antithrombotic long-term use: (6) Hypertension: (7) Hyperlipidemia: (8) CAD (coronary artery disease): Admission and Anticipated Discharge Date Admission Date: July 30, 2022 Supervising Physician Co-Signing Physician Notes I personally examined the patient and verified all [place] points of history and exam, discussed case, and agree with decision making with Dr Montez Continues to feel better. Overall easily confused though. vitals noted nad heent nc at mmm. Breathing unlabored no accessory muscles good effort, neuro no focal deficits appears mildly confused, similar to last few days DC, cardiogenic shock - off ventilator, balloon pump. Showing nice progress. Ongoing secondary risk reduction and supportive care. Appearing stable for rehab. Asked for peer to peer by insurancediscussed with insurance physician who approved rehab. Discussed with patient and family, messaged case management mouth ulcer - symptomatic treatment, improving DVT proph - heparin SQ for now showing improvement, otherwise as above anticipate need for rehabhopefully will be able to go tomorrow Subjective Patient is sitting on commode on arrival. She reports her leg swelling is improved. She tolerated regular diet at breakfast well. She has no acute concerns or complaints at this time. Review of Systems Review of Systems: All systems reviewed & are unremarkable except as noted in HPI & below Physical Exam Physical Exam: General: Well-appearing, alert, interactive, and in no acute distress. HEENT: Normocephalic, atraumatic. EOM intact. Good conjugate gaze. Nares patent. Moist mucosal membranes. Neck: Supple. No lymphadenopathy. Normal ROM. CV: Regular rate and rhythm. Normal S1 and S2. No murmurs gallops or rubs. Respiratory: Normal respiratory effort. Lungs clear to auscultation bilaterally. No crackles, rhonchi, or wheezes. Abdomen: Soft, nondistended abdomen. No bruits heard on auscultation. No tenderness to deep palpation. No guarding or rebound. Extremities: Capillary refill <2 sec. 2+ dp equal bilaterally. No pedal edema. Neuro: Alert and oriented x3. Skin: Clean, dry, and intact. No rashes, bruises, or erythema. Results & Data Results & Data ([facility]) Vital Signs (Past 12 Hours) Vital Signs Temp Pulse Pulse Resp BP BP Pulse Ox 08/05/22 00:00 81 08/04/22 23:27 37.4 C 82 18 151/66 H 95 08/04/22 23:04 08/04/22 19:28 37.0 C 81 18 152/75 H 96 O2 Del Method 08/05/22 00:00 08/04/22 23:27 Room Air 08/04/22 23:04 Room Air 08/04/22 19:28 Room Air Resident Activity Tracking Resident Involvement: Resident Care Provided Care Provided: Adult Hospital Medicine (1) Acute [place] Involved coronary artery: unspecified coronary artery Myocardial infarction type: ST elevation myocardial infarction Qualified Code(s): I21.3 - ST elevation (STEMI) myocardial infarction of unspecified site
[2022-08-05 07:11] LABS: Hematocrit (blood only) 32.5 % (34.1-44.9); Hemoglobin 11.1 g/dl (12.0-16.0); Mean Corpuscular Hemoglobin 29.5 pg (25.0-34.0); Mean Corpuscular Hgb Conc 34.2 g/dL (32.0-36.0); Mean Corpuscular Volume 86.4 fL (80.0-100.0); Mean Platelet Volume 9.8 fL (9.4-12.3); Platelet Count 219 K/uL (130-400); RDW Coefficient of Variation 15.9 % (11.5-14.5); RDW Standard Deviation 50.2 fL (36.4-46.3); Red Blood Count 3.76 M/uL (3.93-5.22); White Blood Count 8.48 K/ul (4.8-10.8)
[2022-08-05 07:37] LABS: Albumin Level 3.1 gm/dl (3.4-5.0); BUN Creatinine Ratio 18.8 (10-20); Bilirubin,Total 2.2 mg/dl (0.2-1.0); Calcium 8.2 mg/dl (8.5-10.1); Creatinine Clr Calc Pharmacy 54.1 ml/min; Est GFR (African American) 79.6 ml/min; Est GFR (Non-African American) 68.7 ml/min; Phosphorus 2.6 mg/dl (2.5-4.9); Total Protein 6.1 gm/dl (6.0-8.3)
[2022-08-05 07:40] LABS: ALC (manual) 0.68 K/uL (1.2-3.4); ANC (manual) 6.19 K/uL (1.4-6.5); Basophils # (manual) 0.08 K/uL (0-0.2); Basophils % (manual) 1 %; Eosinophils # (manual) 0.34 K/uL (0-0.50); Eosinophils % (manual) 4 %; Lymphocytes # (manual) 0.68 K/uL (1.2-3.4); Lymphocytes % (manual) 8 %; Metamyelocytes # (manual) 0.17 K/uL (0-0); Metamyelocytes % (manual) 2 %; Monocytes # (manual) 0.76 K/uL (0.24-0.82); Monocytes % (manual) 9 %; Myelocytes # (manual) 0.34 K/uL (0-0); Myelocytes % (manual) 4 %; Neutrophils # (manual) 6.19 K/uL (1.4-6.5); Neutrophils % (manual) 73 %
[2022-08-05] MEDS: ATORVASTATIN 40 MG TAB PO SCH (08:10)
[2022-08-05] MEDS: LOSARTAN POTASSIUM 25 MG TAB PO SCH (08:10)
[2022-08-05] MEDS: HEPARIN SOD 5,000 UNIT/0.5 ML VIAL SQ SCH ×2 (08:10→20:37)
[2022-08-05] MEDS: CLOPIDOGREL BISULFATE 75 MG TAB PO SCH (08:10)
[2022-08-05] MEDS: METOPROLOL SUCC 25MG EXT REL TAB PO SCH (08:10)
[2022-08-05] MEDS: ASPIRIN 81 MG CHEW PO SCH (08:20)
[2022-08-05] MEDS: PANTOprazole 40 MG TAB PO SCH (09:25)
--- NOTE | 2022-08-05 18:41 | Billing Data ---
Date of Service August 05, 2022 Coding Level of Care Code 95872 Subseq Hosp Care Lvl 3
--- NOTE | 2022-08-05 18:42 | Billing Data ---
Date of Service August 05, 2022 Coding Level of Care Code 48879 Subseq Hosp Care Lvl 3
[2022-08-06] MEDS: METOPROLOL SUCC 25MG EXT REL TAB PO SCH (08:12)
[2022-08-06] MEDS: CLOPIDOGREL BISULFATE 75 MG TAB PO SCH (08:12)
[2022-08-06] MEDS: HEPARIN SOD 5,000 UNIT/0.5 ML VIAL SQ SCH (08:12)
[2022-08-06] MEDS: ATORVASTATIN 40 MG TAB PO SCH (08:12)
[2022-08-06] MEDS: PANTOprazole 40 MG TAB PO SCH (08:12)
[2022-08-06] MEDS: LOSARTAN POTASSIUM 25 MG TAB PO SCH (08:13)
[2022-08-06] MEDS: ASPIRIN 81 MG CHEW PO SCH (09:15)
--- NOTE | 2022-08-07 09:08 | Discharge Summary ---
Date of Service August 06, 2022 Admission HPI Per Admitting Provider Raeann Wyatt is an 81yo female with history of CAD s/p CABG x 2 V in 1995 (HANKS to SVG and SVG to LAD), HTN, HLP presenting to [facility] as Heart Alert. Patient developed chest pain prior to arrival, 5/10 in severity. She took ASA 324 and Nitro x 3 prior to arrival. Abnormal EKG transmitted by EMS concerning for inferior-lateral STEMI. Patient was brought to the Catheterization lab. Unresponsive and bradycardic at that time. She had a transcutaneous pacer placed via right femoral site. Catheterization revealed patent grafts. Patient had 100% occlusion of the mid RCA with clot burden s/p balloon angioplasty and placement of WILBUR x 1. SHhe was treated in integrilin bolus x 2 and drip as well as Plavix load 600mg Patient had significant hypotension during the case and was given manuel- synephrine. She also developed nausea, vomiting and possible aspiration. An intra-aortic balloon pump was placed for cardiac support. Patient was intubated for hypoxic respiratory failure. Admission Exam Per Admitting Provider General: patient intubated and sedated, NAD Skin: warm, dry, intact, no rashes or lesions HEENT: NC/AT, PERRL, anicteric sclera, conjunctiva without injection, external ear normal to inspection and nontender, nares patent, moist mucus membranes, ETT in place, neck supple, trachea midline, no LAD, no thyromegaly, no JVD Heart: +S1/S2, regular, [place] pacing apparent on monitor, IABP in place with augmented pressure 97 Lungs: equal air entry bilaterally, no rales/rhonchi/wheezes Abd: +BS, soft, NT/ND, no masses/organomegaly/ascites Ext: warm, 2+ pulses in UE/LE bilaterally, no clubbing/cyanosis or edema Neuro: sedated Right groin - IABP ETT in place RIght radial A-line Principal Diagnosis STEMI, cardiogenic shock Discharge Exam General: Well-appearing, alert, interactive, and in no acute distress. HEENT: Normocephalic, atraumatic. EOM intact. Good conjugate gaze. Nares patent. Moist mucosal membranes. Neck: Supple. No lymphadenopathy. Normal ROM. CV: Regular rate and rhythm. Normal S1 and S2. No murmurs gallops or rubs. Respiratory: Normal respiratory effort. Lungs clear to auscultation bilaterally. No crackles, rhonchi, or wheezes. Abdomen: Soft, nondistended abdomen. No bruits heard on auscultation. No tenderness to deep palpation. Extremities: Capillary refill <2 sec. 2+ dp equal bilaterally. No pedal edema. Neuro: Alert and oriented x3. Skin: Clean, dry, and intact. No rashes, bruises, or erythema. Discharge Data Allergies Allergy/AdvReac Type Severity Reaction Status Date / Time No Known Drug Allergies Allergy Verified 07/16/22 10:47 Consultations 07/30/22 03:04 Consult Internal Medicine Routine Procedures Performed Operation Date: 07/30/22 01:30 Actual Procedures p Aspiration/PCI w/WILBUR for Stemi - Amari Valles MD, PhD s Cath, Cors with Grafts (no LV) - Amari Valles MD, PhD p Drug Eluting Stent SGl Vessel - Amari Valles MD, PhD s Temporary Transcutaneous Pacing - Amari Valles MD, PhD s Intra-Aortic Balloon Insertion - Amari Valles MD, PhD s Ultrasound Vascular Access - Amari Valles MD, PhD Ordered Studies 07/30/22 01:16 CL Cath Imgs for PACS use only Stat 08/04/22 13:33 US venous doppler LE Routine Hospital Course (1) Cardiogenic shock: 81-year-old woman with history of CAD (s/p CABG) who presented to the ICU with cardiogenic shock due to inferior STEMI requiring pressors, balloon pump, s/p WILBUR x1 to the RCA. Cardiogenic shock (now resolved) -Secondary to inferior STEMI currently status post cath to the RCA. -Pressors have been weaned off and is currently without pressor assistance with MAP >65 -Balloon pump discontinued by cardiology on 07/31/2022. -Patient subsequently improved. A-line discontinued. Downgraded to PCU for further care. -Currently awaiting placement in acute rehab, likely [facility]. * Continue Lipitor, aspirin, Plavix * Metoprolol succinate 25 mg daily. BP well controlled as before Confusion -New since admission. No prior history. Per , patient independent at baseline, completes ADLs, ambulates at home without assistance, and drives. No prior home oxygen requirement. -Suspect delirium secondary to prolonged hospital stay, disorientation. * Supportive management opening windows during daytime, frequent reorientation as needed to time & place. * Awaiting placement at acute rehab, [facility]. Acute rehab placement now tentative, pending completion of peer to peer call. Dysphagia (resolved) -Oropharyngeal injury secondary to endotracheal tube insertion -Speech consult placed: No current concern for aspiration. Suspect trach injury. -Diet converted to pured foods, with boost for meal supplementation as needed -Tolerating regular diet. * Magic mouthwash prior to mealtime for oral numbing Anemia -S/p pRBC x2 on 07/31. Stable. Consider resolved. Hypertension -Antihypertensives restarted by cardiology after being initially held for presenting cardiogenic shock. * Metoprolol succinate 25 mg daily. Monitor vitals, as above. Coronary artery disease: Home Plavix, aspirin Hyperlipidemia: Started on Lipitor 40 mg every morning. (2) Acute IL: (3) Dysphagia: (4) Anemia: (5) Antiplatelet or antithrombotic long-term use: (6) Hypertension: (7) Hyperlipidemia: (8) CAD (coronary artery disease): Total Time Total Time Spent Total Time Spent (In Minutes): 20 Discharge Plan Discharge Items Patient Disposition: Transfer Inpatient Rehab Fac Reason For Visit: STEMI, CARDIOGENIC SHOCK, BRADYCARDIA, HYPOXIA Discharge Diagnosis: STEMI, cardiogenic shock, hypoxia, hypotension, bradycardia Activity: Per Instructions section Non-emergency contact: Primary Care Provider Call non-emergency contact if: you have any medication questions, your symptoms worsen and your pain is not controlled Follow-up/Referrals: Zach Lira MD [Primary Care Provider] - Diet: Regular Addtl Attending Provider Instructions: 81-year-old woman with history of CAD (s/p CABG) who presented to the ICU with cardiogenic shock due to inferior STEMI requiring pressors, balloon pump, s/p WILBUR x1 to the RCA. Cardiogenic shock(now resolved) -Secondary to inferior STEMI currently status post cath to the RCA. -Pressors weaned off. Remained without pressor assistance with MAP >65 until discharge -Balloon pump discontinued by cardiology on 07/31/2022. -Patient subsequently improved. A-line discontinued. Downgraded to PCU for further care, to [facility] without telemetry. * Continue Lipitor, aspirin, Plavix * Restarted metoprolol succinate 25 mg daily. Confusion (resolved) -New since admission. No prior history. Per , patient independent at baseline, completes ADLs, ambulates at home without assistance, and drives. No prior home oxygen requirement. -Suspect delirium secondary to prolonged hospital stay, disorientation. Resolved after transfer to [facility] unit. * Supportive management opening windows during daytime, frequent reorientation as needed to time & place. * Awaiting placement at acute rehab, [facility]. Acute rehab placement now tentative, pending completion of peer to peer call. Dysphagia(resolved) -Oropharyngeal injury secondary to endotracheal tube insertion -Speech consult placed: No current concern for aspiration. Suspect trach injury. -Diet converted to pured foods, with boost for meal supplementation as needed -Tolerating regular diet. * Magic mouthwash prior to mealtime for oral numbing Anemia -S/p pRBC x2 on 07/31. Stable. Consider resolved. Hypertension -Antihypertensives restarted by cardiology after being initially held for presenting cardiogenic shock. * Metoprolol succinate 25 mg daily. Monitor vitals, as above. Coronary artery disease: Home Plavix, aspirin Hyperlipidemia: Started on Lipitor 40 mg every morning. Pending Studies at Discharge: No Stand-Alone Forms: My [facility] Skilled Items Patient informed of condition?: Yes DNR: No Discharge Level of Care: Skilled Communicable Disease: No Discharge Prognosis: Stable Lines: None Urinary Catheter: No Medications and DC Order Prescriptions: Continued amoxicillin 500 mg tablet 2,000 mg PO ONCE Qty: 20 0RF Rx Instructions: TAKE 4 TABLETS ONE HOUR PRIOR TO DENTAL WORK nitroglycerin 0.4 mg tablet, sublingual 0.4 mg SL Q5M PRN (Reason: chest pain) Qty: 25 3RF Rx Instructions: until response; do not exceed 3 doses per episode metoprolol succinate [Toprol XL] 25 mg tablet extended release 24 hr 12.5 mg PO HS Qty: 45 3RF potassium chloride 10 mEq tablet extended release 10 meq PO BID Qty: 180 3RF ezetimibe 10 mg tablet 10 mg PO DAILY Qty: 90 3RF alendronate 70 mg tablet 70 mg PO Q7D aspirin 81 mg tablet,delayed release (DR/EC) 81 mg PO DAILY rosuvastatin 5 mg tablet 5 mg PO .COMPLEX Qty: 60 3RF Rx Instructions: 5 mg orally 5 days a week; spironolacton-hydrochlorothiaz 25-25 mg tablet 0.5 tab PO QAM Qty: 45 3RF coenzyme Q10 [CoQ-10] 100 mg Capsule 100 mg PO DAILY cholecalciferol (vitamin D3) [Vitamin D3] 5,000 unit Tablet 5,000 unit PO QAM Vitamin B-12 5,000 mcg/mL Drops 5,000 mcg SUBLINGUAL DAILY biotin 1 mg Capsule 1 mg PO DAILY [place]-3 350 mg-235 mg- 90 mg-597 mg Capsule,Delayed Release(Dr/Ec) 1 cap PO DAILY Daily Multivitamin with Iron 18-400 mg-mcg Tablet 1 tab PO WK Discharge Orders: Discharge Order (Routine); Ordered 08/06/22 Ordered By: Jaspal Watson/Other Patient Handouts: A1C Admission Data Admit Date/Time: 07/30/22 02:15 Attending Provider: Rasheed Brown Admit Provider: Amari Valles Primary Care Provider: Zach Lira Other Providers: [facility] ; [facility] ; Morris Rojas ; Aleisha Rodriguez ; Zach Del Castillo ; Koko Parra ; Parminder Mirza ; Bipin Solano ; Myles Tamez ; Vashti Pulliam ; Yazmin Quinteros ; Dereje Javier ; Monica Robertson ; Jonathan Acosta ; Gilmar Guerra ; Vickie Sumner ; Carito Mcdonough ; Ryann Alvarado ; Glen Elliott ; Rasheed Brown ; Aleisha Harris ; Uday Bustamante ; Luis Manuel Ruffin ; Zach Arce ; Janelle Weinstein ; Regla Contreras ; Augie Lion ; Myesha River ; Eran Parkinson ; Audra Stephenson ; Daryl Coffey ; Rene Pepe ; Lebron Golden ; Kody Florian Other Interventions: Discharge Summary Assessment (RN) Last Done: 08/06/22 14:45 Supervising Physician Co-Signing Physician Notes I personally examined the patient and verified all [place] points of history and exam, discussed case, and agree with decision making with Dr Reedulate Continues to feel better. At the time of our midmorning exam, the patient is seated; in bed. Her son is at bedside. She notes ongoing continued cough mostly in AM. Denies any shortness of breath or respiratory difficulty. Exam 152/75, 76, 14, 36.9, 94% room air Upon exam, lungs are clear throughout with nonlabored respirations. No wheezing rhonchi or rales are appreciated. Impression and plan IL, cardiogenic shock -remarkable improvement. She is scheduled to go for inpatient rehabilitation today. She is looking forward to this. She lives at home with her and eventual plan is to return home. Additional per resident documentation Resident Activity Tracking Resident Involvement: Resident Care Provided Care Provided: Adult Hospital Medicine
== END 2022-08-06 15:30 | DRG 270 ==
LOC: ED 01:06 → CC 01:20 → 1E 02:15 → SUATTDRO 02:15 → 2E 08-02 12:17 → 3N 08-05 12:24
PROC: CLB.CCG (2022-07-30 01:30)
PROC: CLB.TTP (2022-07-30 01:30)

== ENCOUNTER 2025-06-03 19:07 | Inpatient (IN) ==
[2025-06-03 19:31] LABS: Hematocrit (blood only) 41.5 % (37.0-47.0); Hemoglobin 13.7 g/dl (12.0-16.0); Immature Granulocytes # (auto) 0.02 K/uL (0.01-0.20); Immature Granulocytes % (auto) 0.3 %; Mean Corpuscular Hemoglobin 29.1 pg (25.0-34.0); Mean Corpuscular Volume 88.3 fL (80.0-100.0); Platelet Count 168 K/uL (130-400); RDW Standard Deviation 47.8 fL (36.4-46.3); Red Blood Count 4.70 M/uL (4.20-5.40); White Blood Count 6.13 K/ul (4.8-10.8)
[2025-06-03 19:48] LABS: Alanine Aminotransferase 37.0 U/L (7-52); Albumin Globulin Ratio 1.4 (0.9-2); Alkaline Phosphatase 47.0 U/L (34-104); Anion Gap 7.0 (3-11); Bilirubin,Total 1.2 mg/dl (0.2-1.0); Blood Urea Nitrogen 19.0 mg/dl (6-23); Calcium 9.0 mg/dl (8.6-10.3); Carbon Dioxide 25.0 mmol/L (21-32); Chloride 107.0 mmol/L (98-107); Creatinine Clr Calc Pharmacy 36.6 ml/min; Globulin 2.8 gm/dl (2.5-4.0); Glucose 108.0 mg/dl (70-99(Fasting)); Lipase 38.0 U/L (11-82); Magnesium 2.2 mg/dl (1.7-2.4); Potassium 4.2 mmol/L (3.5-5.1); Sodium 139.0 mmol/L (136-145); Total Protein 6.7 gm/dl (6.0-8.3)
[2025-06-03 19:56] LABS: INR 1.0 (0.9-1.1); Prothrombin Time 10.5 Seconds (9.0-12.0)
--- NOTE | 2025-06-03 19:57 | Emergency Department Note ---
Impression & Plan Chest pain, Non-ST elevation [place] (NSTEMI) ED Provider Note HISTORY OF PRESENT ILLNESS: Patient is an 84-year-old female presenting with chest pain. Patient states that she got very woozy and lightheaded and diaphoretic about an hour prior to arrival. states she did not look well when he got her cool washcloths given that she was "dripping sweat." They state that this occurred for about 30 minutes and then she developed pain underneath her left breast. Her breast and chest pain lasted for about 30 more minutes. They called 911. Patient was chest pain free on EMS arrival. Patient has a history of a STEMI with a stent in place. She is on a baby aspirin daily. Denies any associated shortness of breath, nausea or vomiting. She is pain-free on arrival to the ER. Denies any recent cough or fevers. ROS: as above PHYSICAL EXAM: Constitutional: Patient appears in no acute distress. HENT: Head: Normocephalic and atraumatic. Eyes: EOMI, PERRL Mouth/Throat: Mucous membranes moist. Neck: Trachea midline. Neck supple. Cardiovascular: RRR, No murmurs, rubs or gallops. Intact distal pulses. Pulmonary/Chest: No respiratory distress. Breath sounds clear and equal bilaterally. No wheezes or rales. Abdominal: Abdomen soft, no tenderness, rebound or guarding. Musculoskeletal: No edema, tenderness or deformity noted. Skin: Warm and dry. No rash, erythema, pallor or cyanosis Psychiatric: Appropriate mood and affect for situation. Neurological: Alert and keenly responsive. CN II-XII grossly intact, moving all extremities equally and fully. MDM: - Vitals signs showed hypertension and bradycardia - History obtained via patient. History as above. - Chronic conditions affecting care: CAD (s/p PCI); HTN; HLD - Differential diagnoses include, but are not limited to: Acute coronary syndrome; pulmonary embolism; dissection; tension pneumothorax; esophageal rupture; pneumonia - Order placed for continuous cardiac monitoring. At this time, monitor showed rate of 50 bpm with normal sinus rhythm, per my interpretation. - External medical records reviewed. Cardiology office visit note dated 12/22/2024 was reviewed. Patient follows in their clinic for her CAD. No changes to medications were made at that visit - EKG image interpreted by myself showed normal sinus rhythm. Rate 65 bpm. QT 458. No acute ischemic changes. However, noted to have some ST depressions in leads I and II. - Laboratory workup interpreted by myself showed normal WBC; stable electrolytes; elevated total bilirubin (1.2); elevated troponin (56.7); normal lipase - CXR image reviewed by myself negative for pneumonia, per my interpretation - Repeat troponin trending up and doubled - up to 115.9 - Patient took 81 mg aspirin today - given 243 mg PO here. - Heparin drip ordered. - Discussion was had with manager case management about patient's case and need for admission - Hospitalist consulted for admission - Patient admitted to [facility] service for further evaluation and management. I have personally spent 62 minutes of critical care time in the direct management of this patient. This includes bedside care, interpretation of diagnostic studies, and testing, discussion with consultants, patient, and family members, and other required patient management activities. This 62 minutes is in excess of all separately billable procedures. ASSESSMENT AND PLAN: Diagnosis: chest pain; NSTEMI Plan: admit Past Med/Surg History Problem List Non-ST elevation [place] (NSTEMI) (Acute) Chest pain (Acute) Elevated glucose Antiplatelet or antithrombotic long-term use CAD (coronary artery disease) Hyperlipidemia Hypertension Presence of drug-eluting stent in right coronary artery History of acute inferior wall [place] History of right hip replacement Medical History Follow-up of acute inferior myocardial infarction Dysphagia Anemia Cardiogenic shock Acute hypotension Chest pain Acute [place] Encounter for pre-operative examination Osteopenia Surgical History History of lumpectomy of right breast History of dilatation and curettage History of hysterectomy History of colonoscopy History of cataract surgery History of coronary artery bypass graft History of cardiac cath Family History Mother Family hx of colon cancer Social History Smoking Status: Never smoker Second Hand Exposure: No; Do You Dip or Chew Tobacco: No; Hx Alcohol Use: No Hx Substance Use: No Preferred Language: Arabic Communication Ability: Unable 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 Campaign 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 Required: No Beliefs That Will Affect Care: None marital status: Current Living Situation: Spouse current occupation: Retired Feels Safe at Home: Yes Assistive Devices: Glasses and Walker Allergies Allergies Allergy/AdvReac Type Severity Reaction Status Date / Time No Known Drug Allergies Allergy Verified 01/29/25 13:59 Home Meds Home Medications Medication Instructions Recorded Confirmed biotin 1 mg capsule 1 mg PO QDL 11/18/18 06/03/25 coenzyme Q10 100 mg capsule 100 mg PO QAM 11/18/18 06/03/25 (CoQ-10) omega 3 350 mg-dha 235 mg-epa 90 1 cap PO .EVERY 14 DAYS 11/18/18 06/03/25 mg-fish oil 597 mg capsule,delay rel (Mcbrides-3) multivitamin-ferrous 1 tab PO WK 11/24/18 06/03/25 fumarate-folic acid 18 mg-400 mcg tablet (Daily Multivitamin with Iron) alendronate 70 mg tablet 70 mg PO Q7D 12/30/19 06/03/25 aspirin 81 mg tablet,delayed 81 mg PO QAM 12/30/19 06/03/25 release metronidazole 0.75 % topical cream 1 applic topical DAILY 01/01/23 06/03/25 cholecalciferol (vitamin D3) 125 2,000 unit PO QDL 04/29/23 06/03/25 mcg (5,000 unit) tablet (Vitamin D3) cyanocobalamin (vitamin B-12) 2,000 mcg sublingual QDL 04/29/23 06/03/25 5,000 mcg/mL sublingual drops (Vitamin B-12) ezetimibe 10 mg tablet 10 mg PO QAM 06/03/25 06/03/25 potassium chloride 10 mEq 10 meq PO BIDM 06/03/25 06/03/25 tablet,extended release rosuvastatin 40 mg tablet 40 mg PO QDL 06/03/25 06/03/25 Previous Rx's Medication Instructions Recorded amoxicillin 500 mg tablet 2,000 mg (4 x 500 mg) PO ONCE #20 06/13/20 tabs nitroglycerin 0.4 mg sublingual 0.4 mg sublingual Q5M PRN chest 01/14/24 tablet pain #25 tabs metoprolol succinate 25 mg 12.5 mg (1/2 x 25 mg) PO HS #45 12/22/24 tablet,extended release 24 hr tabs (Toprol XL) Results & Data (ED) Vital Signs Vital Signs - 24 hr 06/03/25 19:14 06/03/25 19:25 06/03/25 19:26 Temperature 36.6 C Temperature Source Oral Pulse Rate 62 56 L Pulse Rate [Apical] 59 L Pulse Rhythm Regular Pulse Strength Normal Respiratory Rate 20 20 16 Respiratory Effort / Characteristics Non-Labored Non-Labored Spontaneous Respiratory Depth Normal Normal Respiratory Pattern Regular Regular Blood Pressure 148/82 H Blood Pressure [Left Arm] 153/77 H Blood Pressure Mean 104 Blood Pressure Mean [Left Arm] 102 Blood Pressure Position Lying Blood Pressure Position [Left Arm] Lying Pulse Oximetry 99 96 97 Oxygen Delivery Method Room Air Room Air Room Air Sepsis Recent Fever Within 48 Hours No Sepsis New/Unexplained Change in Mental Status No Sepsis Action Taken by Nursing No Action Required 06/03/25 19:29 06/03/25 20:00 06/03/25 21:00 Temperature Temperature Source Pulse Rate 59 L Pulse Rate [Apical] 50 L 60 Pulse Rhythm Pulse Strength Respiratory Rate 20 18 Respiratory Effort / Characteristics Non-Labored Spontaneous Non-Labored Spontaneous Respiratory Depth Normal Normal Respiratory Pattern Regular Regular Blood Pressure Blood Pressure [Left Arm] 142/68 H 138/74 Blood Pressure Mean Blood Pressure Mean [Left Arm] 92 95 Blood Pressure Position Blood Pressure Position [Left Arm] Lying Lying Pulse Oximetry 96 96 Oxygen Delivery Method Room Air Room Air Sepsis Recent Fever Within 48 Hours Sepsis New/Unexplained Change in Mental Status Sepsis Action Taken by Nursing Laboratory Data 06/03/25 19:17 06/03/25 19:17 Lab Results 06/03/25 06/03/25 Range/Units 19:17 21:09 WBC 6.13 (4.8-10.8) K/ul RBC 4.70 (4.20-5.40) M/uL Hgb 13.7 (12.0-16.0) g/dl Hct 41.5 (37.0-47.0) % MCV 88.3 (80.0-100.0) fL MCH 29.1 (25.0-34.0) pg MCHC 33.0 (32.0-36.0) g/dL RDW Std Deviation 47.8 H (36.4-46.3) fL RDW Coeff of Randell 14.8 H (11.5-14.5) % Plt Count 168 (130-400) K/uL MPV 10.2 (9.4-12.4) fL Immature Gran % (Auto) 0.3 % Neut % (Auto) 64.5 % Lymph % (Auto) 23.0 % Antelope % (Auto) 8.8 % Eos % (Auto) 2.9 % Baso % (Auto) 0.5 % Neut # (Auto) 3.95 (1.40-6.50) K/uL Lymph # (Auto) 1.41 (1.20-3.40) K/uL Antelope # (Auto) 0.54 (0.11-0.59) K/uL Eos # (Auto) 0.18 (0.00-0.50) K/uL Baso # (Auto) 0.03 (0.00-0.20) K/uL Immature Gran # (Auto) 0.02 (0.01-0.20) K/uL PT 10.5 (9.0-12.0) Seconds INR 1.0 (0.9-1.1) Sodium 139 (136-145) mmol/L Potassium 4.2 (3.5-5.1) mmol/L Chloride 107 (98-107) mmol/L Carbon Dioxide 25 (21-32) mmol/L Anion Gap 7 (3-11) BUN 19 (6-23) mg/dl Creatinine 1.07 (0.6-1.2) mg/dl Est Cr Clr Drug Dosing 36.6 ml/min eGFR 50.90 BUN/Creatinine Ratio 17.8 (10-20) Glucose 108 H (70-99(Fasting)) mg/dl Calcium 9.0 (8.6-10.3) mg/dl Magnesium 2.2 (1.7-2.4) mg/dl Total Bilirubin 1.2 H (0.2-1.0) mg/dl AST 33 (13-39) U/L ALT 37 (7-52) U/L Alkaline Phosphatase 47 (34-104) U/L Troponin I High Sens 56.7 H* 115.9 H* D (0-14) pg/ml Total Protein 6.7 (6.0-8.3) gm/dl Albumin 3.9 (3.4-5.0) gm/dl Globulin 2.8 (2.5-4.0) gm/dl Albumin/Globulin Ratio 1.4 (0.9-2) Lipase 38 (11-82) U/L Administered Medications Discontinued Medications Aspirin (Aspirin Chew 324 Mg) 243 mg PO NOW STA Stop: 06/03/25 20:54 Last Admin: 06/03/25 21:05 Dose: 243 mg Documented By: MALINI Discharge Plan Visit Data Chief Complaint: Chest Pain Stated Complaint: Chest Pain, SOB, Weakness ED Provider: Caroline Rajan Discharge Problem: Chest pain, Non-ST elevation [place] (NSTEMI) Condition: Fair Forms Stand Alone Forms: My [facility] Prescriptions Prescriptions: No Action amoxicillin 500 mg tablet 2,000 mg PO ONCE Qty: 20 0RF Rx Instructions: TAKE 4 TABLETS ONE HOUR PRIOR TO DENTAL WORK nitroglycerin 0.4 mg tablet, sublingual 0.4 mg SL Q5M PRN (Reason: chest pain) Qty: 25 3RF Rx Instructions: until response; do not exceed 3 doses per episode alendronate 70 mg tablet 70 mg PO Q7D Rx Instructions: sundays aspirin 81 mg tablet,delayed release (DR/EC) 81 mg PO QAM metronidazole 0.75 % cream 1 applic topical DAILY Rx Instructions: apply to face metoprolol succinate [Toprol XL] 25 mg tablet extended release 24 hr 12.5 mg PO HS Qty: 45 3RF coenzyme Q10 [CoQ-10] 100 mg Capsule 100 mg PO QAM biotin 1 mg Capsule 1 mg PO QDL Mcbrides-3 350 mg-235 mg- 90 mg-597 mg Capsule,Delayed Release(Dr/Ec) 1 cap PO .EVERY 14 DAYS Rx Instructions: saturday Daily Multivitamin with Iron 18-400 mg-mcg Tablet 1 tab PO WK Rx Instructions: saturdays cholecalciferol (vitamin D3) [Vitamin D3] 125 mcg (5,000 unit) tablet 2,000 unit PO QDL Vitamin B-12 5,000 mcg/mL drops 2,000 mcg SUBLINGUAL QDL potassium chloride 10 mEq tablet extended release 10 meq PO BIDM ezetimibe 10 mg tablet 10 mg PO QAM rosuvastatin 40 mg tablet 40 mg PO QDL Referrals Referrals: Nitish Ryan Jr, MD, FACC [Primary Care Provider] -
[2025-06-03] MEDS: ASPIRIN CHEW 324 MG PO STA (21:05)
--- NOTE | 2025-06-03 21:36 | History & Physical Report ---
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 She presents to the emergency department with the acute onset of chest pain, sweats, feeling woozy, and lightheadedness that occurred while watching TV about 1 hour prior to arrival to the emergency department. Her reports that she initially was dripping sweat for about 30 minutes, and then developed pain under her left breast for an additional 30 minutes. At this time they called 911. She continues to take a baby aspirin daily. This is the first episode of chest discomfort she has had since having her inferior wall MA and cardiac catheterization revealing total mid RCA occlusion with stent correction on 07/30/2022. She was given additional 243 mg aspirin in the ED. She was presented to the [facility] for further evaluation and treatment. NSTEMI/history of inferior wall MA/history of mid RCA stent in 07/30/2022/hypertension- The patient will be admitted to telemetry for serial cardiac enzymes, serial EKG's, cardiac rhythm monitoring and a 2-D echocardiogram with Dopplers. Given aspirin 243 mg in addition to the aspirin 81 mg usually takes Initial troponin was 56.7, however, on follow-up returned 115.9, she was then placed on a heparin drip. Continue metoprolol succinate, nitroglycerin sublingual's Most recent echocardiogram from 09/20/2022 with ejection fraction 60-65% EKG shows normal sinus rhythm with nonspecific ST-T changes Consult cardiology Hyperlipidemia- Continue rosuvastatin 40 mg daily and Zetia 10 mg daily History of Present Illness Chief Complaint: The patient presents to the emergency department with acute onset of dripping sweat that lasted for about 30 minutes, and then developed pain under her left breast which lasted additional 30 minutes. They then called 911, and was b rought to the emergency department for assessment. 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 She presents to the emergency department with the acute onset of chest pain, sweats, feeling woozy, and lightheadedness that occurred while watching TV about 1 hour prior to arrival to the emergency department. Her reports that she initially was dripping sweat for about 30 minutes, and then developed pain under her left breast for an additional 30 minutes. At this time they called 911. She continues to take a baby aspirin daily. This is the first episode of chest discomfort she has had since having her inferior wall MA and cardiac catheterization revealing total mid RCA occlusion with stent correction on 07/30/2022. She was given additional 243 mg aspirin in the ED. She was presented to the [facility] service for further evaluation and treatment Allergies Allergy/AdvReac Type Severity Reaction Status Date / Time No Known Drug Allergies Allergy Verified 01/29/25 13:59 Home Medications Medication Instructions Recorded Confirmed Type biotin 1 mg capsule 1 mg PO QDL 11/18/18 06/03/25 History coenzyme Q10 100 mg capsule 100 mg PO QAM 11/18/18 06/03/25 History (CoQ-10) omega 3 350 mg-dha 235 mg-epa 90 1 cap PO .EVERY 14 DAYS 11/18/18 06/03/25 History mg-fish oil 597 mg capsule,delay rel ([employer]-3) multivitamin-ferrous 1 tab PO WK 11/24/18 06/03/25 History fumarate-folic acid 18 mg-400 mcg tablet (Daily Multivitamin with Iron) alendronate 70 mg tablet 70 mg PO Q7D 12/30/19 06/03/25 History aspirin 81 mg tablet,delayed 81 mg PO QAM 12/30/19 06/03/25 History release amoxicillin 500 mg tablet 2,000 mg (4 x 500 mg) PO ONCE #20 06/13/20 06/03/25 Rx tabs metronidazole 0.75 % topical cream 1 applic topical DAILY 01/01/23 06/03/25 History cholecalciferol (vitamin D3) 125 2,000 unit PO QDL 04/29/23 06/03/25 History mcg (5,000 unit) tablet (Vitamin D3) cyanocobalamin (vitamin B-12) 2,000 mcg sublingual QDL 04/29/23 06/03/25 History 5,000 mcg/mL sublingual drops (Vitamin B-12) nitroglycerin 0.4 mg sublingual 0.4 mg sublingual Q5M PRN chest 01/14/24 06/03/25 Rx tablet pain #25 tabs metoprolol succinate 25 mg 12.5 mg (1/2 x 25 mg) PO HS #45 12/22/24 06/03/25 Rx tablet,extended release 24 hr tabs (Toprol XL) ezetimibe 10 mg tablet 10 mg PO QAM 06/03/25 06/03/25 History potassium chloride 10 mEq 10 meq PO BIDM 06/03/25 06/03/25 History tablet,extended release rosuvastatin 40 mg tablet 40 mg PO QDL 06/03/25 06/03/25 History Past Med/Surg History Problem List Non-ST elevation MA (NSTEMI) (Acute) Chest pain (Acute) Elevated glucose Antiplatelet or antithrombotic long-term use CAD (coronary artery disease) Hyperlipidemia Hypertension Presence of drug-eluting stent in right coronary artery History of acute inferior wall MA History of right hip replacement Medical History Follow-up of acute inferior myocardial infarction Dysphagia Anemia Cardiogenic shock Acute hypotension Chest pain Acute MA Encounter for pre-operative examination Osteopenia Surgical History History of lumpectomy of right breast History of dilatation and curettage History of hysterectomy History of colonoscopy History of cataract surgery History of coronary artery bypass graft History of cardiac cath Family History Mother Family hx of colon cancer Social History Smoking Status: Never smoker Second Hand Exposure: No; Do You Dip or Chew Tobacco: No; Hx Alcohol Use: No Hx Substance Use: No Preferred Language: Congolese Communication Ability: Effective Hand Almond Blancher Required: No Beliefs That Will Affect Care: None marital status: Current Living Situation: Spouse current occupation: Retired Other Information That Helps Us Care for You: No Feels Safe at Home: Yes Safety Concerns: Feels Safe At This Time Assistive Devices: Denture - Upper, Denture - Lower and Glasses Review of Systems Review of Systems: The patient denies palpitations, cough, lower extremity swelling, sore throat, fevers, chills, sweats, nausea, vomiting, diarrhea , constipation, abdominal pain, pelvic pain, blood in urine or stool, dysuria, urinary frequency or urgency, lightheadedness, dizziness, headache, memory loss, loss of consciousness, rash, abnormal bruising or bleeding, imbalance, focal weakness, numbness or tingling in arms or legs, generalized arthralgias or myalgias, back or neck pain. The review of systems is otherwise negative other than for that already noted above, and at least 10 systems have been reviewed. Physical Exam Physical Exam: The patient is awake, alert and oriented 3, well developed and well nourished, normocephalic and atraumatic, lying in bed and in no acute distress. HEENT--PERRL, EOMI, mucous membranes and oropharynx normal Neck--supple. No JVD. No bruits. Thyroid normal, trachea midline, no adenopathy. Heart--normal S1 and S2. No murmurs, rubs or gallops. Lungs--clear bilaterally, no respiratory distress, no accessory muscle use. Abdomen--normal bowel sounds and soft. Nontender. Nondistended, no hernias or masses, no organomegaly. Extremities--no cyanosis or clubbing. No edema. There are good distal pulses b/l. Dermatologic--normal skin turgor, normal color, no abnormal lymph nodes, no rash. Neurologic--cranial nerves II through XII grossly intact. Rheumatologic--normal range of motion. Psychiatric--normal affect. Results & Data Results & Data Vital Signs (Past 12 Hours) Vital Signs Temp Pulse Pulse Resp BP BP Pulse Ox 06/03/25 21:00 60 18 138/74 96 06/03/25 20:00 50 L 20 142/68 H 96 06/03/25 19:29 59 L 06/03/25 19:26 59 L 16 153/77 H 97 06/03/25 19:25 56 L 20 96 06/03/25 19:14 36.6 C 62 20 148/82 H 99 O2 Del Method 06/03/25 21:00 Room Air 06/03/25 20:00 Room Air 06/03/25 19:29 06/03/25 19:26 Room Air 06/03/25 19:25 Room Air 06/03/25 19:14 Room Air Laboratory Results Laboratory Results WBC 6.13 K/ul (4.8-10.8) 06/03/25 19:17 RBC 4.70 M/uL (4.20-5.40) 06/03/25 19:17 Hgb 13.7 g/dl (12.0-16.0) 06/03/25 19:17 Hct 41.5 % (37.0-47.0) 06/03/25 19:17 MCV 88.3 fL (80.0-100.0) 06/03/25 19:17 MCH 29.1 pg (25.0-34.0) 06/03/25 19:17 MCHC 33.0 g/dL (32.0-36.0) 06/03/25 19:17 RDW Std Deviation 47.8 fL (36.4-46.3) H 06/03/25 19:17 RDW Coeff of Randell 14.8 % (11.5-14.5) H 06/03/25 19:17 Plt Count 168 K/uL (130-400) 06/03/25 19:17 MPV 10.2 fL (9.4-12.4) 06/03/25 19:17 Immature Gran % (Auto) 0.3 % 06/03/25 19:17 Neut % (Auto) 64.5 % 06/03/25 19:17 Lymph % (Auto) 23.0 % 06/03/25 19:17 Shannon % (Auto) 8.8 % 06/03/25 19:17 Eos % (Auto) 2.9 % 06/03/25 19:17 Baso % (Auto) 0.5 % 06/03/25 19:17 Neut # (Auto) 3.95 K/uL (1.40-6.50) 06/03/25 19:17 Lymph # (Auto) 1.41 K/uL (1.20-3.40) 06/03/25 19:17 Shannon # (Auto) 0.54 K/uL (0.11-0.59) 06/03/25 19:17 Eos # (Auto) 0.18 K/uL (0.00-0.50) 06/03/25 19:17 Baso # (Auto) 0.03 K/uL (0.00-0.20) 06/03/25 19:17 Immature Gran # (Auto) 0.02 K/uL (0.01-0.20) 06/03/25 19:17 PT 10.5 Seconds (9.0-12.0) 06/03/25 19:17 INR 1.0 (0.9-1.1) 06/03/25 19:17 Sodium 139 mmol/L (136-145) 06/03/25 19:17 Potassium 4.2 mmol/L (3.5-5.1) 06/03/25 19:17 Chloride 107 mmol/L (98-107) 06/03/25 19:17 Carbon Dioxide 25 mmol/L (21-32) 06/03/25 19:17 Anion Gap 7 (3-11) 06/03/25 19:17 BUN 19 mg/dl (6-23) 06/03/25 19:17 Creatinine 1.07 mg/dl (0.6-1.2) 06/03/25 19:17 Est Cr Clr Drug Dosing 36.6 ml/min 06/03/25 19:17 eGFR 50.90 06/03/25 19:17 BUN/Creatinine Ratio 17.8 (10-20) 06/03/25 19:17 Glucose 108 mg/dl (70-99(Fasting)) H 06/03/25 19:17 Calcium 9.0 mg/dl (8.6-10.3) 06/03/25 19:17 Magnesium 2.2 mg/dl (1.7-2.4) 06/03/25 19:17 Total Bilirubin 1.2 mg/dl (0.2-1.0) H 06/03/25 19:17 AST 33 U/L (13-39) 06/03/25 19:17 ALT 37 U/L (7-52) 06/03/25 19:17 Alkaline Phosphatase 47 U/L (34-104) 06/03/25 19:17 Troponin I High Sens 115.9 pg/ml (0-14) H* D 06/03/25 21:09 Total Protein 6.7 gm/dl (6.0-8.3) 06/03/25 19:17 Albumin 3.9 gm/dl (3.4-5.0) 06/03/25 19:17 Globulin 2.8 gm/dl (2.5-4.0) 06/03/25 19:17 Albumin/Globulin Ratio 1.4 (0.9-2) 06/03/25 19:17 Lipase 38 U/L (11-82) 06/03/25 19:17 Impressions Chest X-Ray 06/03/25 19:14 EXAM: XR chest 1V portable CLINICAL HISTORY: Chest pain, nonspecific TECHNIQUE: An X-ray image of the chest is obtained in AP projection. COMPARISON: No prior studies are available for comparison. FINDINGS: Pulmonary Parenchyma: Lungs are clear bilaterally. No evidence of consolidation, collapse, or focal opacities. No pulmonary nodules are identified. No evidence of pleural effusion or pleural thickening. Heart and Mediastinum: mild cardiomegaly. No mediastinal widening or masses. No hilar or mediastinal lymphadenopathy. Bony Thorax: Bony thorax appears intact without fractures or deformities. ECG leads. Midline sternotomy wires. Soft Tissues: Soft tissues overlying the chest wall are unremarkable. IMPRESSION: 1. No acute cardiopulmonary abnormalities are identified. 2. Mild cardiomegaly. 3. Midline sternotomy wires. 4. Clinical correlation, follow-up up and further work if warranted Electronically signed by Zana Larose 06-03-2025 9:39 PM Code Status & VTE Plan Code Status Full code VTE Prophylaxis Plan VTE Prophylaxis will be ordered: Yes PG Care Time/CCT Total # of Minutes Spent Total Time Spent with Patient: Total time spent is greater than 50% in coordination of care (as documented) at patient's floor/unit and/or counseling patient: Coding Level of Care Code 87678 INT INP/OBS CARE 3/75MIN Diagnoses Non-ST elevation MA (NSTEMI) I21.4 History of acute inferior wall MA I25.2 Presence of drug-eluting stent in right coronary artery Z95.5 Hypertension I10 Hyperlipidemia E78.5
--- NOTE | 2025-06-03 22:03 | XRay Report ---
EXAM: XR chest 1V portable CLINICAL HISTORY: Chest pain, nonspecific TECHNIQUE: An X-ray image of the chest is obtained in AP projection. COMPARISON: No prior studies are available for comparison. FINDINGS: Pulmonary Parenchyma: Lungs are clear bilaterally. No evidence of consolidation, collapse, or focal opacities. No pulmonary nodules are identified. No evidence of pleural effusion or pleural thickening. Heart and Mediastinum: mild cardiomegaly. No mediastinal widening or masses. No hilar or mediastinal lymphadenopathy. Bony Thorax: Bony thorax appears intact without fractures or deformities. ECG leads. Midline sternotomy wires. Soft Tissues: Soft tissues overlying the chest wall are unremarkable. IMPRESSION: 1. No acute cardiopulmonary abnormalities are identified. 2. Mild cardiomegaly. 3. Midline sternotomy wires. 4. Clinical correlation, follow-up up and further work if warranted Electronically signed by Zana Larose 06-03-2025 9:39 PM
[2025-06-03] MEDS ORDERED: ACETAMINOPHEN 325 MG TAB PO PRN (23:08)
[2025-06-03] MEDS ORDERED: ONDANSETRON INJ 2 MG/ML 2 ML VIAL IV PRN (23:08)
[2025-06-03] MEDS ORDERED: NITROGLYCERIN SL 0.4 MG/TAB TAB SL PRN (23:08)
[2025-06-03] MEDS: HEPARIN 25000 UNIT/500 ML D5W 25,000 UNITS/500 ML BAG IV SCH (23:34)
[2025-06-03] MEDS: Heparin IV Adult Wt-Based Low-Dose *NO* INITIAL Bolus Protocol IV STA (23:57)
[2025-06-04 00:13] LABS: Partial Thromboplastin Time 27 Seconds (21-31)
[2025-06-04 06:09] LABS: Hematocrit (blood only) 40.6 % (37.0-47.0); Hemoglobin 13.3 g/dl (12.0-16.0); Immature Granulocytes # (auto) 0.01 K/uL (0.01-0.20); Immature Granulocytes % (auto) 0.2 %; Mean Corpuscular Hemoglobin 28.9 pg (25.0-34.0); Mean Corpuscular Volume 88.3 fL (80.0-100.0); Platelet Count 171 K/uL (130-400); RDW Standard Deviation 47.8 fL (36.4-46.3); Red Blood Count 4.60 M/uL (4.20-5.40); White Blood Count 5.52 K/ul (4.8-10.8)
[2025-06-04 06:24] LABS: Alanine Aminotransferase 29.0 U/L (7-52); Albumin Globulin Ratio 1.6 (0.9-2); Alkaline Phosphatase 37.0 U/L (34-104); Anion Gap 9.0 (3-11); Bilirubin,Total 1.3 mg/dl (0.2-1.0); Blood Urea Nitrogen 14.0 mg/dl (6-23); Calcium 8.6 mg/dl (8.6-10.3); Carbon Dioxide 25.0 mmol/L (21-32); Chloride 109.0 mmol/L (98-107); Creatinine Clr Calc Pharmacy 41.9 ml/min; Globulin 2.4 gm/dl (2.5-4.0); Glucose 90.0 mg/dl (70-99(Fasting)); Magnesium 2.2 mg/dl (1.7-2.4); Potassium 3.6 mmol/L (3.5-5.1); Sodium 143.0 mmol/L (136-145); Total Protein 6.2 gm/dl (6.0-8.3)
[2025-06-04 06:39] LABS: ANTI-Xa, UFH(UnfractionatedHep 0.40 IU/ml (0.3-0.7)
[2025-06-04] MEDS: CYANOCOBALAMIN (B-12) 500 MCG TABLET PO SCH (07:51)
[2025-06-04] MEDS: EZETIMIBE 10 MG TAB PO SCH ×2 (07:51→10:28)
[2025-06-04] MEDS: ROSUVASTATIN CALCIUM 20 MG TAB PO SCH ×2 (07:52→13:38)
[2025-06-04] MEDS: CHOLECALCIFEROL 25 MCG (1000 UNITS) TAB PO SCH (07:52)
[2025-06-04] MEDS: ASPIRIN 81 MG ECTAB PO SCH (07:52)
--- NOTE | 2025-06-04 08:03 | Cardiology Consultation ---
Date of Consultation June 04, 2025 Assessment & Plan (1) Non-ST elevation MS (NSTEMI): (2) Chest pain: (3) CAD (coronary artery disease): (4) Presence of drug-eluting stent in right coronary artery: (5) Hypertension: (6) Hyperlipidemia: (7) Near syncope: (8) History of coronary artery bypass graft: Plan ASSESSMENT/PLAN: 1. CAD s/p CABG x 2 and RCA PCI with NSTEMI: No definite angina. Elevated troponins/NSTEMI. Presentation not likely acute coronary syndrome based on her 's description but her poor memory limits details of her symptoms. Can continue heparin drip for now if no contraindication. We discussed coronary angiography is an option to evaluate for severe CAD. Risk and benefits discussed in detail. Her (who helps her make decisions) wishes to avoid invasive measures at this time and prefers a conservative approach. She completely defers to his decision. Continue antiplatelet therapy indefinitely. Discontinue beta-philip given bradycardia in the 40s and presenting symptoms of near syncope. Continue high intensity statin therapy. 2. Chest pain: Was nonexertional and occurred after a near syncopal event. Cannot exclude primary ischemic event but given 's details of the event, less likely. Patient/ does not wish to pursue invasive measures. Conservative management. 3. Near syncope: Possible orthostatic in origin. She apparently had been bent over and then stood up. Given bradycardia overnight in the 40s, cannot exclude bradycardia or other arrhythmia. Discontinue beta-philip given documented bradycardia. Consider outpatient event monitor. Change positions slowly. Remain well-hydrated. Consider compression stockings. 4. Hypertension: Blood pressure has mostly been normotensive to mildly hypertensive. Discontinuing beta-philip as above for concern of orthostatic hypotension and/or bradycardia playing a role in near syncope. 5. Dyslipidemia: Continue high intensity statin therapy. 6. Disposition: Dr. Field will be covering after 5 PM today. Please call with any questions or concerns. On discharge, should follow-up with her primary information technology associate, Dr. Ryan. Plan of care communicated with Dr. Taveras of the hospitalist service. Thank you for allowing me to participate in the care of your patient. Please call for any other questions or concerns. Sincerely, Ena Cruz M.D. History of Present Illness Reason for Consultation: NSTEMI Requesting Physician: Dr. Rojas Attending Physician: Mario Taveras MD, PhD History of Present Illness Ms. Wyatt is a very pleasant 84-year-old female with history significant for multivessel CAD s/p CABG x 2 (1995; HANKS to LAD and SVG to Diag) and RCA PCI, dyslipidemia, and hypertension. Her primary information technology associate is Dr. Ryan. Her cardiac history is notable for CABG x 2 in 1995 and STEMI on 07/30/2022 for which she underwent RCA PCI, complicated by cardiogenic shock and bradycardia with placement of intra-aortic balloon pump and temporary transvenous pacemaker. Today's history was obtained by reviewing records, speaking with patient but also her (first via telephone and then in person at the bedside). Unfortunately, the patient herself does not recall the details of why she was admitted. She recalls feeling "weird." She denied chest pain but stated that there was a feeling in her chest at some point but could not describe. She cannot recall if it is similar to prior angina. She does not remember if she received treatment such as nitroglycerin. She does not recall if she had other associated symptoms such as shortness of breath. She denies chest pain or shortness of breath currently. She denies syncope, palpitations, edema, or bleeding. Her states that she was outside and bent over to feed her cats. She then became acutely diaphoretic and weak and shaky on her feet. She appeared quite pale. He thought she was going to pass out. He summoned EMS. He states that she did not lose consciousness. After EMS arrived, she apparently complained of left lower chest discomfort beneath her left breast. He states that she did not describe it anything like her prior angina in 2021 when she presented for STEMI. He recalls that she will sometimes have these episodes first thing in the morning when she wakes up where she will become diaphoretic and pale but they typically resolve. Her memory is poor. She did not recall prior conversation with her nor much of what we discussed earlier in the day. Review of systems: As above. Family history: Noncontributory. Social history: She denies tobacco, alcohol or drug abuse. She lives at home with her second (Eran Urbina). She is x 1. 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 Initially, she was unaccompanied but her was at the bedside later in the day when I returned to the room. Allergies Allergy/AdvReac Type Severity Reaction Status Date / Time No Known Drug Allergies Allergy Verified 01/29/25 13:59 Home Medications Medication Instructions Recorded Confirmed Type biotin 1 mg capsule 1 mg PO QDL 11/18/18 06/03/25 History coenzyme Q10 100 mg capsule 100 mg PO QAM 11/18/18 06/03/25 History (CoQ-10) omega 3 350 mg-dha 235 mg-epa 90 1 cap PO .EVERY 14 DAYS 11/18/18 06/03/25 History mg-fish oil 597 mg capsule,delay rel ([place]-3) multivitamin-ferrous 1 tab PO WK 11/24/18 06/03/25 History fumarate-folic acid 18 mg-400 mcg tablet (Daily Multivitamin with Iron) alendronate 70 mg tablet 70 mg PO Q7D 12/30/19 06/03/25 History aspirin 81 mg tablet,delayed 81 mg PO QAM 12/30/19 06/03/25 History release amoxicillin 500 mg tablet 2,000 mg (4 x 500 mg) PO ONCE #20 06/13/20 06/03/25 Rx tabs metronidazole 0.75 % topical cream 1 applic topical DAILY 01/01/23 06/03/25 History cholecalciferol (vitamin D3) 125 2,000 unit PO QDL 04/29/23 06/03/25 History mcg (5,000 unit) tablet (Vitamin D3) cyanocobalamin (vitamin B-12) 2,000 mcg sublingual QDL 04/29/23 06/03/25 History 5,000 mcg/mL sublingual drops (Vitamin B-12) nitroglycerin 0.4 mg sublingual 0.4 mg sublingual Q5M PRN chest 01/14/24 06/03/25 Rx tablet pain #25 tabs metoprolol succinate 25 mg 12.5 mg (1/2 x 25 mg) PO HS #45 12/22/24 06/03/25 Rx tablet,extended release 24 hr tabs (Toprol XL) ezetimibe 10 mg tablet 10 mg PO QAM 06/03/25 06/03/25 History potassium chloride 10 mEq 10 meq PO BIDM 06/03/25 06/03/25 History tablet,extended release rosuvastatin 40 mg tablet 40 mg PO QDL 06/03/25 06/03/25 History Problem List Near syncope Non-ST elevation MS (NSTEMI) (Acute) Chest pain (Acute) Elevated glucose Antiplatelet or antithrombotic long-term use CAD (coronary artery disease) Hyperlipidemia Hypertension Presence of drug-eluting stent in right coronary artery History of acute inferior wall MS History of right hip replacement Patient History Medical History Follow-up of acute inferior myocardial infarction Dysphagia Anemia Cardiogenic shock Acute hypotension Chest pain Acute MS Encounter for pre-operative examination Osteopenia Surgical History History of lumpectomy of right breast History of dilatation and curettage History of hysterectomy History of colonoscopy History of cataract surgery History of coronary artery bypass graft History of cardiac cath Family History Mother Family hx of colon cancer Social History Smoking Status: Never smoker Second Hand Exposure: No; Do You Dip or Chew Tobacco: No; Hx Alcohol Use: No Hx Substance Use: No Preferred Language: [place] Communication Ability: Effective [employer] Required: No Beliefs That Will Affect Care: None marital status: Current Living Situation: Spouse current occupation: Retired Other Information That Helps Us Care for You: No Feels Safe at Home: Yes Safety Concerns: Feels Safe At This Time Assistive Devices: None Physical Exam Physical Exam: Gen.: No acute distress. Alert. HEENT: Anicteric sclera. Neck: No JVD. No bruits. Normal carotid upstrokes bilaterally. Cardiac: Regular. Normal S1-S2. No murmurs, rubs, or gallops. Pulmonary: Clear to auscultation bilaterally without wheezes, rales, or rhonchi. Abdomen: Soft, nontender, nondistended, with normoactive bowel sounds. No bruits noted. Extremities: 2+ radial pulses bilaterally. 2+ posterior tibialis pulses bilaterally. No edema or cyanosis. Results & Data Vital Signs (Past 12 Hours) Vital Signs Temp Pulse Pulse Resp BP Pulse Ox O2 Del Method 06/04/25 03:04 36.7 C 68 18 128/70 99 Room Air 06/03/25 22:58 36.7 C 72 18 127/77 98 Room Air 06/03/25 22:53 57 L 06/03/25 22:45 36.4 C L 54 L 20 155/73 H 97 Room Air 06/03/25 22:14 51 L 18 138/60 96 Room Air 06/03/25 21:00 60 18 138/74 96 Room Air 06/03/25 20:00 50 L 20 142/68 H 96 Room Air Laboratory Results Laboratory Results - last 24 hr 06/03/25 06/03/25 06/03/25 19:17 21:09 23:06 WBC 6.13 RBC 4.70 Hgb 13.7 Hct 41.5 MCV 88.3 MCH 29.1 MCHC 33.0 RDW Std Deviation 47.8 H RDW Coeff of Randell 14.8 H Plt Count 168 MPV 10.2 Immature Gran % (Auto) 0.3 Neut % (Auto) 64.5 Lymph % (Auto) 23.0 [place] % (Auto) 8.8 Eos % (Auto) 2.9 Baso % (Auto) 0.5 Neut # (Auto) 3.95 Lymph # (Auto) 1.41 [place] # (Auto) 0.54 Eos # (Auto) 0.18 Baso # (Auto) 0.03 Immature Gran # (Auto) 0.02 PT 10.5 INR 1.0 APTT 27 PTT Ratio 1.0 Heparin Anti-Xa, Unfract Sodium 139 Potassium 4.2 Chloride 107 Carbon Dioxide 25 Anion Gap 7 BUN 19 Creatinine 1.07 Est Cr Clr Drug Dosing 36.6 eGFR 50.90 BUN/Creatinine Ratio 17.8 Glucose 108 H Calcium 9.0 Magnesium 2.2 Total Bilirubin 1.2 H AST 33 ALT 37 Alkaline Phosphatase 47 Troponin I High Sens 56.7 H* 115.9 H* D Total Protein 6.7 Albumin 3.9 Globulin 2.8 Albumin/Globulin Ratio 1.4 Lipase 38 06/03/25 06/04/25 23:53 05:26 WBC 5.52 RBC 4.60 Hgb 13.3 Hct 40.6 MCV 88.3 MCH 28.9 MCHC 32.8 RDW Std Deviation 47.8 H RDW Coeff of Randell 14.8 H Plt Count 171 MPV 10.9 Immature Gran % (Auto) 0.2 Neut % (Auto) 54.7 Lymph % (Auto) 32.2 [place] % (Auto) 9.8 Eos % (Auto) 2.4 Baso % (Auto) 0.7 Neut # (Auto) 3.02 Lymph # (Auto) 1.78 [place] # (Auto) 0.54 Eos # (Auto) 0.13 Baso # (Auto) 0.04 Immature Gran # (Auto) 0.01 PT INR APTT PTT Ratio Heparin Anti-Xa, Unfract 0.40 Sodium 143 Potassium 3.6 Chloride 109 H Carbon Dioxide 25 Anion Gap 9 BUN 14 Creatinine 0.91 Est Cr Clr Drug Dosing 41.9 eGFR 61.82 BUN/Creatinine Ratio 15.4 Glucose 90 Calcium 8.6 Magnesium 2.2 Total Bilirubin 1.3 H AST 28 ALT 29 Alkaline Phosphatase 37 Troponin I High Sens 199.6 H* D 433.7 H* D Total Protein 6.2 Albumin 3.8 Globulin 2.4 L Albumin/Globulin Ratio 1.6 Lipase Diagnostic Findings Labs reviewed and notable for uptrending high-sensitivity troponin (up to 433 and climbing). Normal renal function, normal potassium, normal transaminase levels, normal magnesium. Normal blood counts. ECGs personally reviewed: ECG 06/03/2025 at 1911: Sinus rhythm [address]/T wave abnormality. ECG 06/04/2025 at 5:12 AM: Sinus bradycardia [address]/T wave abnormality. History and physical report reviewed. Cardiac cath report reviewed from 07/30/2022: Ostial LAD 100%. Mid to distal RCA large clot burden with 100% occlusion. HANKS to LAD small caliber and atretic with distal anastomosis on the LAD. SVG to diagonal/ramus: Large caliber and patent, providing retrograde flow into the LAD. Underwent PCI of mid to distal RCA with 3 x 12 mm Gilberto WILBUR. Underwent intra-aortic balloon pump and temporary transvenous pacemaker placement. She also received phenylephrine and dopamine. Outpatient cardiology note reviewed from 12/22/2024. Chest x-ray 06/03/2025: No acute abnormalities per radiology. ECHO 8/1/25: 1. Normal left ventricular size and systolic function. EF 60-65%. No regional wall motion abnormalities. No left ventricular hypertrophy. 2. Normal right ventricular size with mildly reduced systolic function. 3. Severe left atrial dilation. 4. Mild to moderate mitral regurgitation. 5. Top normal estimated right ventricular systolic pressure. 6. No prior study available for comparison. Telemetry personally reviewed: Sinus bradycardia overnight in the 40s, but heart rate increased during usual daytime hours. Ventricular runs up to 6 beat ventricular run (< 100 bpm). Medications Administered Current Inpatient Medications Acetaminophen (Acetaminophen 325 Mg Tab) 650 mg PO Q4H PRN PRN Reason: Pain or Fever Stop: 07/03/25 23:07 Aspirin (Aspirin 81 Mg Ectab) 81 mg PO DAILY SUSHANT Stop: 07/04/25 08:59 Last Admin: 06/04/25 07:52 Dose: 81 mg Cyanocobalamin (Cyanocobalamin (B-12) 500 Mcg Tablet) 2,000 mcg PO DAILY SUSHANT Stop: 07/04/25 08:59 Last Admin: 06/04/25 07:51 Dose: 2,000 mcg Ezetimibe (Ezetimibe 10 Mg Tab) 10 mg PO DAILY SUSHANT Stop: 07/04/25 08:59 Last Admin: 06/04/25 07:51 Dose: 10 mg Heparin Sodium (Porcine) (Heparin Sod 5,000 Unit/0.5 Ml Vial) 5,000 units SQ Q12 SUSHANT Stop: 07/04/25 08:59 Heparin Sodium/Dextrose (Heparin 69456 Unit/500 Ml D5w) 25,000 units in 500 mls @ 14 mls/hr IV .Q24H SUSHANT; Protocol Stop: 07/03/25 22:14 Last Titration: 06/04/25 07:10 Dose: 700 units/hr, 14 mls/hr Metoprolol Succinate (Metoprolol Succ 25mg Ext Rel Tab) 12.5 mg PO HS COUNT INCLUDES THE [facility] Stop: 07/04/25 20:59 Multivitamins/Minerals (Cerovite Adv Formula Tab) 1 tab PO Sa@0900 SUSHANT Stop: 07/05/25 08:59 Nitroglycerin (Nitroglycerin Sl 0.4 Mg/Tab Tab) 0.4 mg SL Q5M PRN PRN Reason: chest pain Stop: 07/03/25 23:07 Ondansetron HCl (Ondansetron Inj 2 Mg/Ml 2 Ml Vial) 4 mg IV Q6H PRN PRN Reason: Nausea Stop: 07/03/25 23:07 Potassium Chloride (Potassium Chloride 10 Meq Tabcr) 10 meq PO BID COUNT INCLUDES THE [facility] Stop: 07/04/25 08:59 Rosuvastatin Calcium (Rosuvastatin Calcium 20 Mg Tab) 40 mg PO DAILY SUSHANT Stop: 07/04/25 08:59 Last Admin: 06/04/25 07:52 Dose: 40 mg Vitamin D (Cholecalciferol 25 Mcg (1000 Units) Tab) 50 mcg PO QAM SUSHANT Stop: 07/04/25 08:59 Last Admin: 06/04/25 07:52 Dose: 50 mcg PG Care Time/CCT Total # of Minutes Spent Total Time Spent with Patient: Total time spent is greater than 50% in coordination of care (as documented) at patient's floor/unit and/or counseling patient: Coding Level of Care Code 19030 INT INP/OBS CARE 3/75MIN Diagnoses Non-ST elevation MS (NSTEMI) I21.4 Chest pain R07.9 CAD (coronary artery disease) I25.10 Presence of drug-eluting stent in right coronary artery Z95.5 Hypertension I10 Hyperlipidemia E78.5 Near syncope R55 History of coronary artery bypass graft Z95.1
[2025-06-04] MEDS ORDERED: MoRPHine SULFATE 2 MG/ML CARP IV PRN (08:07)
[2025-06-04] MEDS ORDERED: HEPARIN SOD 5,000 UNIT/0.5 ML VIAL SQ SCH (09:00)
[2025-06-04] MEDS: POTASSIUM CHLORIDE 10 MEQ TABCR PO SCH (10:28)
--- NOTE | 2025-06-04 13:32 | XCELERA ---
[id number]
[2025-06-04 15:35] VITALS: RESP 18
--- NOTE | 2025-06-04 20:22 | Hospitalist Progress Note ---
Date of Service June 04, 2025 Assessment & Plan (1) Non-ST elevation MN (NSTEMI): Plan: NOT acute NSTEMI given the absence of wall motion abnormalities (cf., 06/04/2025, 6:16am TTE, CARDS Dr. Jakub Cruz). Nonetheless, patient continues to be monitored on telemetry overnight, along with continued administration of heparin infusion, with anticipated D/C home in the 06/05/2025 am. No cardiac catheterization indicated on 06/04/2025, as per CARDS Dr. Jakub Cruz. (2) History of acute inferior wall MN: Plan: s/p 2 vessel CABG (HANKS to LAD; SVG to LAD)(1995, [facility], Cardio-Thoracic Surgeon Dr. Da Cortez), followed by CARDS Dr. Nitish Ryan for 30+ years. PMH of acute inferior wall STEMI (07/30/2022, 1:18am, [facility] Interventional CARDS Dr. Amari Valles). Continue secondary prophylaxis against CAD utilizing ASA 81mg PO daily, zetia 10mg PO qam, and rosuvastatin 40mg PO daily. (3) Presence of drug-eluting stent in right coronary artery: Plan: Cardiac Catheterization (07/30/2022, 1:18am, [facility] Interventional CARDS Dr. Amari Valles). Procedure Date July 30, 2022 Pre-Procedure Diagnosis Pre-Procedure Diagnosis: STEMI (inferior, bradycardia) AUC Score AUC Score: 09 Post-Procedure Diagnosis Post-Procedure Diagnosis: Severe CAD (Cardiogenic shock, hemodynamically unstable bradycardia, hypoxia) Procedure(s) Performed Procedure(s) Performed: Coronary Angiography, Drug Eluting Stent, Temporary Pacemaker, IABP, Ultrasound Guided Vascular Access and Bypass Graft Angiography Wheel Gr[employer] Amari Valles MD, PhD Estimated Blood Loss Estimated Blood Loss: 30 ml Medication(s) Medication(s): Aspirin, Clopidogrel, Fentanyl, Heparin, Integrilin, Lidocaine 1%, Adalberto-Synephrine, Nicardipine, Nitroglycerin and Versed Summary of Findings Brief description: Patient was brought to the cardiac catheterization suite where she was shaved and prepped in a sterile fashion. She was unresponsive with a low heart rate. Transcutaneous pacing was initiated. She then regained consciousness. We moved immediately to the access. Soft tissues of the right groin were anesthetized using 10 mL of 1% Xylocaine. Using ultrasound for guidance (image saved) the right femoral artery was accessed and a 6 [place] femoral artery sheath was placed. Again, using the ultrasound for guidance the right femoral vein was accessed and a 7 [place] femoral venous sheath was placed. A transvenous pacing wire was inserted through the venous sheath and then the balloon was inflated. Under fluoroscopic guidance the pacing wire was advanced to the RV and pacing was initiated at 100 bpm and 10 mA. This was then reduced to 80 bpm and 8 mA. We moved immediately to coronary angiography. Left coronary angiography was performed in orthogonal views with a 5 [place] JL 4 diagnostic catheter. Right coronary angiography was performed in orthogonal views with a 6 [place] JR4 guide catheter. Patient was provided IV heparin to undergo coronary intervention. ACT was checked intermittently and additional heparin provided as needed to maintain therapeutic ACT. A BMW reversal guidewire was advanced through the 6 [place] JR4 guide catheter and positioned distally in the RCA. Over this, a 2.5 x 12 mm balloon was advanced and inflated across the lesion. Balloon was deflated and flow was restored. Patient was started on Integrilin drip after double bolus administration. A guide liner was advanced over the wire, then a 3.0 x 12 mm Klemme drug-eluting stent was then advanced and positioned across the lesion. This was deployed at 18 mounika. Stent balloon was removed and a 3.25 x 8 Eup[place] noncompliant balloon was advanced and positioned within the stent. The stent was then postdilated to 17 mounika proximally and 10 mounika distally. The balloon was removed after deflation. The dilator was removed. Coronary angiography was performed. The guidewire was removed and final angiographic evaluation was performed in orthogonal views. We then removed the guide catheter and completed the diagnostic portion of the study using a 5 [place] ASHTYN catheter for HANKS angiography in orthogonal views and a 5 [place] JR4 diagnostic catheter for SVG angiography in orthogonal views. All diagnostic catheters were removed. The patient had significant distress including hypotension requiring Adalberto- Synephrine bolus and dopamine drip. She had a lot of vomiting and likely aspiration. Fortunately, her heart rate responded to revascularization and dopamine drip and she was therefore only intermittently requiring transvenous pacing. We decided to provide hemodynamic support with intra-aortic balloon pump counterpulsation. The 6 [place] femoral artery sheath was exchanged for the 7.5 [place] balloon pump sheath over the wire. Then, 7.5 [place] Mike 40 cc intra-aortic balloon pump was advanced through the sheath and under fluoroscopic guidance over the wire was positioned in the descending thoracic aorta with the tip at the estee. After connecting the balloon pump catheter to the balloon pump and flushing all appropriate lines we initiated intra-aortic balloon pump at one-to-one ratio. Augmented pressure was over 120. The balloon pump was then sutured in place. The transvenous pacer was sutured in place. The right femoral access site was then dressed appropriately. Patient continued with significant hypoxia likely secondary to aspiration. We therefore requested intubation be performed by the emergency room physician. (See her note). Patient had received aspirin prior to arrival in the [facility]. We provided her with 600 mg of Plavix. She was subsequently admitted to the intensive care unit for further management. Coronary angiography: Left main trunk: Large caliber. Bifurcates into LAD and left circumflex. No apparent disease LAD: Appears to be occluded at the ostium. Left circumflex: Travels in the AV groove. First OM is a medium to large caliber branching vessel. The AV groove vessel then becomes medium in caliber as it traverses distally where it provides an atrial branch and terminates as a small posterolateral branch. There is no more than mild scattered plaques in the circumflex and its branches. RCA: This is a large-caliber vessel which is dominant. Mild calcification in the proximal to mid segment. There is diffuse mild disease. Then the mid to distal vessel has a large clot burden and is 100% occluded with JOAN 0 flow distally. HANKS to LAD: Relatively small caliber and atretic with distal anastomosis on the LAD. SVG to diagonal/ramus. Large caliber and widely patent graft. Distal anastomosis on the diagonal/ramus. Fills the [place] vessel antegrade and this appears to be fairly patent vessel. There is also retrograde filling back up into the LAD. The distal LAD is medium in caliber and reaches the apex. PCI to RCA: 0% residual stenosis post PCI. JOAN-3 flow post PCI No evidence of dissection or perforation post PCI There is mild residual stenosis in the mid to proximal RCA just prior to the stent. Distally the vessel is seen to bifurcate into a large PDA and a large branching posterolateral. No more than mild disease distally. Hemodynamics Rest Ao:: 66/32 mmHg Final Ao: 97/53 mmHg, mean 69 mmHg (augmented greater than 120 mmHg) LV: Not performed Recommendations Recommendations: PCI without planned CABG and Management Recommendatons (Intra- aortic balloon pump, transvenous pacer, ICU admission.) (4) Hypertension: Plan: Well-controlled with BP 146/76 (06/04/2025, 6:55pm) on no anti-HTN agents on 06/04/2025. (5) Chronic diastolic CHF (congestive heart failure): Plan: Past medical history of chronic diastolic CHF with preserved LVEF and grade I LV diastolic dysfunction as per patient's CARDS Dr. Nitish Ryan, who wrote on 12/30/2019, 2:32pm [facility] Clinic visit: "Dobutamine stress echocardiogram November 25, 2018 negative for evidence of myocardial ischemia by both ECG and echo criteria at 102% maximum predicted heart rate. Resting echocardiogram with normal biventricular systolic function, grade 1 LV diastolic dysfunction, normal chamber dimensions, trace aortic regurgitation, mild mitral regurgitation, [id number] tricuspid regurgitation, and mildly elevated estimated right ventricular systolic pressure. The test was ordered as preoperative cardiovascular evaluation before undergoing a right total hip arthroplasty (12/23/2018, 8:50am, [facility] Orthopedic Surgeon Dr. Amari Robertson)." cf., TTE (06/04/2025, 6:16am): 1. LVEF 60-65%. No regional wall motion abnormalities. No LVH. Grade II LV diastolic dysfunction. 2. Normal RV size with mildly reduced systolic function. 3. Severe LA dilation. 4. MIld-moderate MR. 5. Top normal estimated RVSP. 6. No prior study for comparison. (as per CARDS Dr. Jakub Cruz). Hence, I surmise that patient's chronic LV diastolic CHF has progressively worsened from 11/25/2018 dobutamine stress ECHO to 06/04/2025, 6:16am TTE. In addition, patient appears to have developed RV systolic CHF (as noted on 06/04/2025, 6:16am TTE, CARDS Dr. Jakub Cruz). Etiology of progressively worsening LV diastolic CHF and now noted RV systolic CHF is attributed to OLD AGE of 84 years, and NOT to any acute (N)STEMI. In addition, patient has no complaints of paroxysmal nocturnal dyspnea, orthopnea, platypnea, or weight gain, to suggest an acute exacerbation of chronic LV diastolic CHF or acute RV systolic CHF on 06/04/2025. Hence, patient does not require diuresis with lasix or torsemide on 06/04/2025. Instead, patient continues to receive a heart healthy diet, daily weights, and strict I/O on 06/04/2025, with no pharmacologic intervention on 06/04/2025. Plan The patient has a past medical history including inferior wall MN with stent placement in total mid RCA occlusion on 07/30/2022, hyperlipidemia, hypertension, history of right hip replacement, osteoporosis, B12 deficiency. She presents to the emergency department with the acute onset of chest pain, sweats, feeling woozy, and lightheadedness that occurred while watching TV about 1 hour prior to arrival to the emergency department. Her reports that she initially was dripping sweat for about 30 minutes, and then developed pain under her left breast for an additional 30 minutes. At this time they called 911. She continues to take a baby aspirin daily. This is the first episode of chest discomfort she has had since having her inferior wall MN and cardiac catheterization revealing total mid RCA occlusion with stent correction on 07/30/2022. She was given additional 243 mg aspirin in the ED. She was presented to the [facility] for further evaluation and treatment. NSTEMI/history of inferior wall MN/history of mid RCA stent in 07/30/2022/hypertension- The patient will be admitted to telemetry for serial cardiac enzymes, serial EKG's, cardiac rhythm monitoring and a 2-D echocardiogram with Dopplers. Given aspirin 243 mg in addition to the aspirin 81 mg usually takes Initial troponin was 56.7, however, on follow-up returned 115.9, she was then placed on a heparin drip. Continue metoprolol succinate, nitroglycerin sublingual's Most recent echocardiogram from 09/20/2022 with ejection fraction 60-65% EKG shows normal sinus rhythm with nonspecific ST-T changes Consult cardiology Hyperlipidemia- Continue rosuvastatin 40 mg daily and Zetia 10 mg daily Admission and Anticipated Discharge Date Admission Date: June 03, 2025 Subjective "I feel fine today (06/04/2025). No complaints today (06/04/2025). I just felt weird in my recliner yesterday afternoon (06/03/2025, 2:00pm). No chest pain at all." Review of Systems Constitutional: Negative for antecedent/coincident fevers, chills, diaphoresis, cough, wheeze, sore throat, hemoptysis, shortness of breath, dyspnea on exertion, paroxysmal nocturnal dyspnea, orthopnea, platypnea, weight gain, weight loss, chest pains, palpitations, pleurisy, nausea, vomiting, diarrhea, abdominal pain, pelvic pain, hematemesis, hematochezia, melena, hematuria, dysuria, frequency, urgency, headaches, dizziness, lightheadedness, visual changes, hearing changes, weakness, falls, syncope, trauma, travel history, sick contacts, or food/drug ingestions novel or new. All other review of systems are reported as negative by the patient on 06/04/2025. Physical Exam Constitutional: General appearance: Comfortable, coherent, cooperative. Wide awake and alert. Not confused, lethargic, or obtunded. Speaks in complete, fluent, and articulate sentences without pause, interruption, cough, or wheeze. HEENT: Normocephalic; atraumatic. EOMI. PERRL No rhinorrhea. No pharyngeal discharge. Neck: Supple, no stridor, bruit, goiter, JVD, or HJR. Lymph: No lymphadenopathy. Chest: Symmetric rise and fall with respirations. Non-tender to palpation. Lungs: Clear to auscultation and percussion. No audible wheeze, pectoriloquy, increase in tactile fremitus, or flatness/dullness to percussion at the bases. Heart: RRR, S1S2, no S3 or S4. Grade II/ early systolic murmur @ LLSB without radiation to the carotids, axilla, or back, and which remains invariant in regards to the respiratory cycle. Abd: Soft, non-tender, non-distended. No rebound, guarding, Mota's sign, or organomegaly. Bowel sounds auscultated in all 4 quadrants. Ext: No clubbing, cyanosis, or edema. 2+ pedal pulses bilaterally. Skin: No decubitus ulcer, exanthem, or enanthem. Neuro: Alert and oriented in regards to person, place, time, or situation. 5/5 motor strength in all 4 extremities, both proximally and distally. Urology: No card catheter. No urethral discharge. Psych: No suicidal ideation. No homicidal ideation. Results & Data Results & Data Vital Signs (Past 12 Hours) Vital Signs Temp Pulse Resp BP Pulse Ox O2 Del Method 06/04/25 18:55 36.5 C 58 L 18 146/76 H 96 Room Air 06/04/25 15:30 36.4 C L 57 L 18 145/74 H 96 Room Air 06/04/25 11:47 36.3 C L 52 L 14 114/64 96 Room Air Laboratory Results Troponin-I #1 56.7 pg/mL (06/03/2025, 7:17pm). Troponin-I #2 115.9 pg/mL (06/03/2025, 9:09pm). Troponin-I #3 199.6 pg/mL (06/03/2025, 11:53pm). Troponin-I #4 433.7 pg/mL (06/04/2025, 5:26am). Troponin-I #5 357.2 pg/mL (06/04/2025, 11:13am). Troponin-I old 21.1 pg/mL (07/30/2022, 1:12am)(cardiac catheterization on 07/30/2022, 1:18am, [facility] Interventional CARDS Dr. Amari Valles). Troponin-I old 982.3 pg/mL (08/01/2022, 1:07pm)(post-cardiac catheterization). Troponin-I old 787.5 pg/mL (08/01/2022, 5:02pm)(post-cardiac catheterization. Diagnostic Findings TTE (06/04/2025, 6:16am): 1. LVEF 60-65%. No regional wall motion abnormalities. No LVH. Grade II LV diastolic dysfunction. 2. Normal RV size with mildly reduced systolic function. 3. Severe LA dilation. 4. MIld-moderate MR. 5. Top normal estimated RVSP. 6. No prior study for comparison. (as per CARDS Dr. Jakub Cruz). PG Care Time/CCT Total # of Minutes Spent Total Time Spent with Patient: Total time spent is greater than 50% in coordination of care (as documented) at patient's floor/unit and/or counseling patient: Coding Level of Care Code 13371 SUB INP/OBS CARE 235MIN Diagnoses Non-ST elevation MN (NSTEMI) I21.4 History of acute inferior wall MN I25.2 Presence of drug-eluting stent in right coronary artery Z95.5 Hypertension I10 Chronic diastolic CHF (congestive heart failure) I50.32
[2025-06-04] MEDS ORDERED: METOPROLOL SUCC 25MG EXT REL TAB PO SCH (21:00)
[2025-06-04 22:26] VITALS: TEMP 98.1
--- NOTE | 2025-06-05 05:34 | Electrocardiogram Report ---
Test Reason : Blood Pressure : */* mmHG Vent. Rate : 65 BPM Atrial Rate : 65 BPM P-R Int : 180 ms QRS Dur : 76 ms QT Int : 458 ms P-R-T Axes : 59 58 85 degrees QTcB Int : 476 ms Normal sinus rhythm Nonspecific ST and T wave abnormality Prolonged QT Abnormal ECG When compared with ECG of 03-Aug-2022 06:09, Nonspecific T wave abnormality no longer evident in Inferior leads Nonspecific T wave abnormality has replaced inverted T waves in Anterior leads Confirmed by Jakub Cruz ([id number]) on 06/05/2025 5:34:22 AM Referred By: Confirmed By: Jakub Cruz
--- NOTE | 2025-06-05 05:35 | Electrocardiogram Report ---
Test Reason : Blood Pressure : */* mmHG Vent. Rate : 44 BPM Atrial Rate : 44 BPM P-R Int : 164 ms QRS Dur : 88 ms QT Int : 510 ms P-R-T Axes : 41 33 44 degrees QTcB Int : 436 ms Marked sinus bradycardia Nonspecific ST and T wave abnormality Abnormal ECG When compared with ECG of 03-Jun-2025 19:11, Vent. rate has decreased by 21 bpm Confirmed by Jakub Cruz ([id number]) on 06/05/2025 5:34:41 AM Referred By: REFERRED SELF Confirmed By: Jakub Cruz
[2025-06-05 06:50] LABS: Hematocrit (blood only) 41.9 % (37.0-47.0); Hemoglobin 13.8 g/dl (12.0-16.0); Immature Granulocytes # (auto) 0.02 K/uL (0.01-0.20); Immature Granulocytes % (auto) 0.4 %; Mean Corpuscular Hemoglobin 29.4 pg (25.0-34.0); Mean Corpuscular Volume 89.1 fL (80.0-100.0); Platelet Count 173 K/uL (130-400); RDW Standard Deviation 48.5 fL (36.4-46.3); Red Blood Count 4.70 M/uL (4.20-5.40); White Blood Count 5.30 K/ul (4.8-10.8)
[2025-06-05 07:22] LABS: Alanine Aminotransferase 27.0 U/L (7-52); Albumin Globulin Ratio 1.7 (0.9-2); Alkaline Phosphatase 36.0 U/L (34-104); Anion Gap 6.0 (3-11); Bilirubin,Total 1.3 mg/dl (0.2-1.0); Blood Urea Nitrogen 19.0 mg/dl (6-23); Calcium 8.7 mg/dl (8.6-10.3); Carbon Dioxide 28.0 mmol/L (21-32); Chloride 108.0 mmol/L (98-107); Creatinine Clr Calc Pharmacy 34.7 ml/min; Globulin 2.3 gm/dl (2.5-4.0); Glucose 89.0 mg/dl (70-99(Fasting)); Magnesium 2.2 mg/dl (1.7-2.4); Potassium 3.9 mmol/L (3.5-5.1); Sodium 142.0 mmol/L (136-145); Total Protein 6.2 gm/dl (6.0-8.3)
[2025-06-05 08:06] VITALS: BP 129/67; O2SAT 97
[2025-06-05] MEDS: CEROVITE ADV FORMULA TAB PO SCH (08:40)
--- NOTE | 2025-06-05 08:42 | Discharge Summary ---
Discharge Summary Date of Service June 05, 2025 Principal Dx & Hospital Course #1 = Principal Diagnosis (1) Non-ST elevation DC (NSTEMI): cf., Troponin-I #1 56.7 pg/mL (06/03/2025, 7:17pm). cf., Troponin-I #2 115.9 pg/mL (06/03/2025, 9:09pm). cf., Troponin-I #3 199.6 pg/mL (06/03/2025, 11:53pm). cf., Troponin-I #4 433.7 pg/mL (06/04/2025, 5:26am). cf., Troponin-I #5 357.2 pg/mL (06/04/2025, 11:13am). cf., Troponin-I old 21.1 pg/mL (07/30/2022, 1:12am)(cardiac catheterization on 07/30/2022, 1:18am, [facility] Interventional CARDS Dr. Amari Valles). cf., Troponin-I old 982.3 pg/mL (08/01/2022, 1:07pm)(post-cardiac catheterization). cf., Troponin-I old 787.5 pg/mL (08/01/2022, 5:02pm)(post-cardiac catheterization. Of note, patient did NOT have an acute NSTEMI during this current hospitaliz ation (06/03/2025 - 06/05/2025) given the absence of wall motion abnormalities (cf., 06/04/2025, 6:16am TTE, CARDS Dr. Jakub Cruz). Of note, patient had no arrhythmias noted on telemetry while in [facility] from admission date 06/03/2025 through discharge date 06/05/2025. Of note, patient does not require cardiac catheterization, as per CARDS Dr. Jakub Cruz on 06/04/2025. Of note, patient had an: 1. Acute type II NSTEMI, which in turn, was due to demand ischemia, which in turn, was due to: (A) progressive worsening in patient's chronic LV diastolic CHF from 11/25/2018 dobutamine stress ECHO (which demonstrated grade I LV diastolic dysfunction, as per CARDS Dr. Nitish Ryan) to 06/04/2025, 6:16am TTE (which demonstrated grade II LV diastolic dysfunction, as per CARDS Dr. Jakub Cruz). (B) RV systolic CHF (as noted on 06/04/2025, 6:16am TTE, CARDS Dr. Jakub Cruz). Of final note, etiology of (A) progressively worsening LV diastolic CHF and (B) now noted RV systolic CHF is attributed to OLD AGE of 84 years, and NOT to acute type I NSTEMI. 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 Da Cortez), followed by CARDS Dr. Nitish Ryan for 30+ years. PMH of acute inferior wall STEMI (07/30/2022, 1:18am, [facility] Interventional CARDS Dr. Amari Valles). Patient received secondary prophylaxis against CAD utilizing ASA 81mg PO daily, zetia 10mg PO qam, and rosuvastatin 40mg PO daily while in [facility] from admission date 06/03/2025 through discharge date 06/05/2025. Patient will continue this same regimen on hospital discharge back to her home on 06/05/2025. (3) Presence of drug-eluting stent in right coronary artery: Cardiac Catheterization (07/30/2022, 1:18am, [facility] Interventional CARDS Dr. Amari Valles). Procedure Date July 30, 2022 Pre-Procedure Diagnosis Pre-Procedure Diagnosis: STEMI (inferior, bradycardia) AUC Score AUC Score: 09 Post-Procedure Diagnosis Post-Procedure Diagnosis: Severe CAD (Cardiogenic shock, hemodynamically unstable bradycardia, hypoxia) Procedure(s) Performed Procedure(s) Performed: Coronary Angiography, Drug Eluting Stent, Temporary Pacemaker, IABP, Ultrasound Guided Vascular Access and Bypass Graft Angiography Injection Molding Machine Tender Amari Valles MD, PhD Estimated Blood Loss Estimated Blood Loss: 30 ml Medication(s) Medication(s): Aspirin, Clopidogrel, Fentanyl, Heparin, Integrilin, Lidocaine 1%, Adalberot-Synephrine, Nicardipine, Nitroglycerin and Versed Summary of Findings Brief description: Patient was brought to the cardiac catheterization suite where she was shaved and prepped in a sterile fashion. She was unresponsive with a low heart rate. Transcutaneous pacing was initiated. She then regained consciousness. We moved immediately to the access. Soft tissues of the right groin were anesthetized using 10 mL of 1% Xylocaine. Using ultrasound for guidance (image saved) the right femoral artery was accessed and a 6 [place]an femoral artery sheath was placed. Again, using the ultrasound for guidance the right femoral vein was accessed and a 7 [place]an femoral venous sheath was placed. A transvenous pacing wire was inserted through the venous sheath and then the balloon was inflated. Under fluoroscopic guidance the pacing wire was advanced to the RV and pacing was initiated at 100 bpm and 10 mA. This was then reduced to 80 bpm and 8 mA. We moved immediately to coronary angiography. Left coronary angiography was performed in orthogonal views with a 5 [place] JL 4 diagnostic catheter. Right coronary angiography was performed in orthogonal views with a 6 [place] JR4 guide catheter. Patient was provided IV heparin to undergo coronary intervention. ACT was checked intermittently and additional heparin provided as needed to maintain therapeutic ACT. A BMW reversal guidewire was advanced through the 6 [place]an JR4 guide catheter and positioned distally in the RCA. Over this, a 2.5 x 12 mm balloon was advanced and inflated across the lesion. Balloon was deflated and flow was restored. Patient was started on Integrilin drip after double bolus administration. A guide liner was advanced over the wire, then a 3.0 x 12 mm O nyx drug-eluting stent was then advanced and positioned across the lesion. This was deployed at 18 mounika. Stent balloon was removed and a 3.25 x 8 Euphora noncompliant balloon was advanced and positioned within the stent. The stent was then postdilated to 17 mounika proximally and 10 mounika distally. The balloon was removed after deflation. The dilator was removed. Coronary angiography was performed. The guidewire was removed and final angiographic evaluation was performed in orthogonal views. We then removed the guide catheter and completed the diagnostic portion of the study using a 5 [place]an ASHTYN catheter for HANKS angiography in orthogonal views and a 5 [place]an JR4 diagnostic catheter for SVG angiography in orthogonal views. All diagnostic catheters were removed. The patient had significant distress including hypotension requiring Adalberto- Synephrine bolus and dopamine drip. She had a lot of vomiting and likely aspiration. Fortunately, her heart rate responded to revascularization and do pamine drip and she was therefore only intermittently requiring transvenous pacing. We decided to provide hemodynamic support with intra-aortic balloon pump counterpulsation. The 6 [place]an femoral artery sheath was exchanged for the 7.5 [place]an balloon pump sheath over the wire. Then, 7.5 [place]an Mike 40 cc intra-aortic balloon pump was advanced through the sheath and under fluoroscopic guidance over the wire was positioned in the descending thoracic aorta with the tip at the estee. After connecting the balloon pump catheter to the balloon pump and flushing all appropriate lines we initiated intra-aortic balloon pump at one-to-one ratio. Augmented pressure was over 120. The balloon pump was then sutured in place. The transvenous pacer was sutured in place. The right femoral access site was then dressed appropriately. Patient continued with significant hypoxia likely secondary to aspiration. We therefore requested intubation be performed by the emergency room physician. (See her note). Patient had received aspirin prior to arrival in the [facility]. We provided her with 600 mg of Plavix. She was subsequently admitted to the intensive care unit for further management. Coronary angiography: Left main trunk: Large caliber. Bifurcates into LAD and left circumflex. No apparent disease LAD: Appears to be occluded at the ostium. Left circumflex: Travels in the AV groove. First OM is a medium to large caliber branching vessel. The AV groove vessel then becomes medium in caliber as it traverses distally where it provides an atrial branch and terminates as a small posterolateral branch. There is no more than mild scattered plaques in the circumflex and its branches. RCA: This is a large-caliber vessel which is dominant. Mild calcification in the proximal to mid segment. There is diffuse mild disease. Then the mid to distal vessel has a large clot burden and is 100% occluded with JOAN 0 flow distally. HANKS to LAD: Relatively small caliber and atretic with distal anastomosis on the LAD. SVG to diagonal/ramus. Large caliber and widely patent graft. Distal anastomosis on the diagonal/ramus. Fills the aniak vessel antegrade and this appears to be fairly patent vessel. There is also retrograde filling back up into the LAD. The distal LAD is medium in caliber and reaches the apex. PCI to RCA: 0% residual stenosis post PCI. JOAN-3 flow post PCI No evidence of dissection or perforation post PCI There is mild residual stenosis in the mid to proximal RCA just prior to the stent. Distally the vessel is seen to bifurcate into a large PDA and a large branching posterolateral. No more than mild disease distally. Hemodynamics Rest Ao:: 66/32 mmHg Final Ao: 97/53 mmHg, mean 69 mmHg (augmented greater than 120 mmHg) LV: Not performed Recommendations Recommendations: PCI without planned CABG and Management Recommendatons (Intra- aortic balloon pump, transvenous pacer, ICU admission.) (4) Hypertension: Well-controlled with BP 146/76 (06/04/2025, 6:55pm) and discharge BP 129/67 (06/05/2025, 8:01am) on no anti-HTN agents while in [facility] from admission date 06/03/2025 through discharge date 06/05/2025. Patient will resume her home-scheduled metoprolol succinate 12.5mg PO qhs on hospital discharge back to her home on 06/05/2025. (5) Chronic diastolic CHF (congestive heart failure): Past medical history of chronic diastolic CHF with preserved LVEF and grade I LV diastolic dysfunction as per patient's CARDS Dr. Nitish Ryan, who wrote on 12/30/2019, 2:32pm CARDS Clinic visit: "Dobutamine stress echocardiogram November 25, 2018 negative for evidence of myocardial ischemia by both ECG and echo criteria at 102% maximum predicted heart rate. Resting echocardiogram with normal biventricular systolic function, grade 1 LV diastolic dysfunction, normal chamber dimensions, trace aortic regurgitation, mild mitral regurgitation, [id number] tricuspid regurgitation, and mildly elevated estimated right ventricular systolic pressure. The test was ordered as preoperative cardiovascular evaluation before undergoing a right total hip arthroplasty (12/23/2018, 8:50am, [facility] Orthopedic Surgeon Dr. Amari Robertson)." cf., TTE (06/04/2025, 6:16am): 1. LVEF 60-65%. No regional wall motion abnormalities. No LVH. Grade II LV diastolic dysfunction. 2. Normal RV size with mildly reduced systolic function. 3. Severe LA dilation. 4. MIld-moderate MR. 5. Top normal estimated RVSP. 6. No prior study for comparison. (as per CARDS Dr. Jakub Cruz). Hence, I surmise that patient's chronic LV diastolic CHF has progressively worsened from 11/25/2018 dobutamine stress ECHO to 06/04/2025, 6:16am TTE. In addition, patient appears to have developed RV systolic CHF (as noted on 06/04/2025, 6:16am TTE, CARDS Dr. Jakub Cruz). Etiology of progressively worsening LV diastolic CHF and now noted RV systolic CHF is attributed to OLD AGE of 84 years, and NOT to any acute (N)STEMI. In addition, patient has no complaints of paroxysmal nocturnal dyspnea, orthopnea, platypnea, or weight gain, to suggest an acute exacerbation of chronic LV diastolic CHF or acute RV systolic CHF on 06/04/2025. Hence, patient did not / does not require diuresis with lasix or torsemide while in [facility] from admission date 06/03/2025 through discharge date 06/05/2025. Instead, patient received a heart healthy diet, daily weights, and strict I/O while in [facility] from admission date 06/03/2025 through discharge date 06/05/2025. Patient will continue to adhere to a heart healthy diet, daily weights, and strict I/O on hospital discharge back to her home on 06/05/2025. Patient will also resume her home-scheduled metoprolol succinate 12.5mg PO qhs on hospital discharge back to her home on 06/05/2025. Plan The patient has a past medical history including inferior wall DC with stent placement in total mid RCA occlusion on 07/30/2022, hyperlipidemia, hypertension, history of right hip replacement, osteoporosis, B12 deficiency. She presents to the emergency department with the acute onset of chest pain, sweats, feeling wo ozy, and lightheadedness that occurred while watching TV about 1 hour prior to arrival to the emergency department. Her reports that she initially was dripping sweat for about 30 minutes, and then developed pain under her left breast for an additional 30 minutes. At this time they called 911. She continues to take a baby aspirin daily. This is the first episode of chest discomfort she has had since having her inferior wall DC and cardiac catheterization revealing total mid RCA occlusion with stent correction on 07/30/2022. She was given additional 243 mg aspirin in the ED. She was presented to the [facility] for further evaluation and treatment. NSTEMI/history of inferior wall DC/history of mid RCA stent in 07/30/2022/hypertension- The patient will be admitted to telemetry for serial cardiac enzymes, serial EKG's, cardiac rhythm monitoring and a 2-D echocardiogram with Dopplers. Given aspirin 243 mg in addition to the aspirin 81 mg usually takes Initial troponin was 56.7, however, on follow-up returned 115.9, she was then placed on a heparin drip. Continue metoprolol succinate, nitroglycerin sublingual's Most recent echocardiogram from 09/20/2022 with ejection fraction 60-65% EKG shows normal sinus rhythm with nonspecific ST-T changes Consult cardiology Hyperlipidemia- Continue rosuvastatin 40 mg daily and Zetia 10 mg daily Admission HPI Per Admitting Provider The patient has a past medical history including inferior wall DC with stent placement in total mid RCA occlusion on 07/30/2022, hyperlipidemia, hypertension, history of right hip replacement, osteoporosis, B12 deficiency. She presents to the emergency department with the acute onset of chest pain, sweats, feeling woozy, and lightheadedness that occurred while watching TV about 1 hour prior to arrival to the emergency department. Her reports that she initially was dripping sweat for about 30 minutes, and then developed pain under her left breast for an additional 30 minutes. At this time they called 911. She continues to take a baby aspirin daily. This is the first episode of chest discomfort she has had since having her inferior wall DC and cardiac catheterization revealing total mid RCA occlusion with stent correction on 07/30/2022. She was given additional 243 mg aspirin in the ED. She was presented to the [facility] service for further evaluation and treatment Discharge Exam Constitutional General appearance: Comfortable, coherent, cooperative. Wide awake and alert. Not confused, lethargic, or obtunded. Speaks in complete, fluent, and articulate sentences without pause, interruption, cough, or wheeze. HEENT: Normocephalic; atraumatic. EOMI. PERRL No rhinorrhea. No pharyngeal discharge. Neck: Supple, no stridor, bruit, goiter, JVD, or HJR. Lymph: No lymphadenopathy. Chest: Symmetric rise and fall with respirations. Non-tender to palpation. Lungs: Clear to auscultation and percussion. No audible wheeze, pectoriloquy, increase in tactile fremitus, or flatness/dullness to percussion at the bases. Heart: RRR, S1S2, no S3 or S4. Grade II/ early systolic murmur @ LLSB without radiation to the carotids, axilla, or back, and which remains invariant in regards to the respiratory cycle. Abd: Soft, non-tender, non-distended. No rebound, guarding, Mota's sign, or organomegaly. Bowel sounds auscultated in all 4 quadrants. Ext: No clubbing, cyanosis, or edema. 2+ pedal pulses bilaterally. Skin: No decubitus ulcer, exanthem, or enanthem. Neuro: Alert and oriented in regards to person, place, time, or situation. 5/5 motor strength in all 4 extremities, both proximally and distally. Urology: No card catheter. No urethral discharge. Psych: No suicidal ideation. No homicidal ideation. Discharge Plan Discharge Items Patient Disposition: Home - Self-Care Reason For Visit: NSTEMI Discharge Diagnosis: 1. Acute type II NSTEMI due to demand ischemia, due to: (A) progressive worsening in patient's chronic LV diastolic CHF from 11/25/2018 dobutamine stress ECHO (which demonstrated grade I LV diastolic dysfunction, as per CARDS Dr. Nitish Ryan) to 06/04/2025, 6:16am TTE (which demonstrated grade II LV diastolic dysfunction, as per CARDS Dr. aJkub Cruz). (B) RV systolic CHF (as noted on 06/04/2025, 6:16am TTE, CARDS Dr. Jakub Curz). Etiology of (A) progressively worsening LV diastolic CHF and (B) now noted RV systolic CHF is attributed to OLD AGE of 84 years, and NOT to acute type I NSTEMI. 2. HTN. 3. CAD. s/p 2 vessel CABG (HANKS to LAD; SVG to diagonal/ramus)(1995, [facility], Cardio-Thoracic Surgeon Dr. Da Cortez), followed by CARDS Dr. Nitish Ryan for 30+ years. 4. CAD. s/p acute inferior wall STEMI (07/30/2022, 1:18am, [facility] Interventional CARDS Dr. Amari Valles): (A) HANKS to LAD with findings of small caliber and atretic with distal anastomosis on the LAD; (B) SVG to diagonal/ramus with findings of large caliber and widely patent graft with distal anastomosis on the diagonal/ramus; PCI to RCA with 0% post residual stenosis post PCI, JOAN-3 flow post PCI, no evidence of dissection or perforation post PCI, mild residual stenosis in the mid to proximal RCA just prior to the stent, distally the vessel is seen to bifurcate into a large PDA and large branching postero-lateral with no more than mild disease distally. (C) This cardiac catheterization was complicated by: (i) cardiogenic shock requiring Adalberto-Synephrine bolus and dopamine drip, (ii) intermittent transvenous pacing, (iii) intra-aortic balloon pump counterpulsation, (iv) acute hypoxic respiratory failure requiring intubation (07/30/2022), extubation (08/01/2022), (v) aspiration pneumonia of LLL with development of LLL effusion (as noted on 07/31/2022, 8:59am portable CXR and on 08/01/2022, 7:00am portable CXR taken post-cardiac catheterization, and NOT seen on 07/30/2022, 4:29am portable CXR taken pre-cardiac catheterization). Condition on Discharge: Fair Activity: Resume your previous activity Lifting: Gradually increase as tolerated Bathing: No limitations Exercise/Sports: Gradually increase as tolerated Weightbearing: Full weightbearing Non-emergency contact: Primary Care Provider Call non-emergency contact if: you have any medication questions Follow-up/Referrals: Niitsh Ryan Jr, MD, [facility] [Primary Care Provider] - Diet: Heart Healthy Addtl Attending Provider Instructions: See your CARDS Dr. Nitish Ryan within 5-7 days of hospital discharge. Pending Studies at Discharge: No Stand-Alone Forms: My [facility] [employer], Smoking Cessation Medications and DC Order Prescriptions: Continued nitroglycerin 0.4 mg tablet, sublingual 0.4 mg SL Q5M PRN (Reason: chest pain) Qty: 25 3RF Rx Instructions: until response; do not exceed 3 doses per episode alendronate 70 mg tablet 70 mg PO Q7D Rx Instructions: sundays aspirin 81 mg tablet,delayed release (DR/EC) 81 mg PO QAM metronidazole 0.75 % cream 1 applic topical DAILY Rx Instructions: apply to face metoprolol succinate [Toprol XL] 25 mg tablet extended release 24 hr 12.5 mg PO HS Qty: 45 3RF coenzyme Q10 [CoQ-10] 100 mg Capsule 100 mg PO QAM biotin 1 mg Capsule 1 mg PO QDL Everett-3 350 mg-235 mg- 90 mg-597 mg Capsule,Delayed Release(Dr/Ec) 1 cap PO .EVERY 14 DAYS Rx Instructions: saturday Daily Multivitamin with Iron 18-400 mg-mcg Tablet 1 tab PO WK Rx Instructions: saturdays cholecalciferol (vitamin D3) [Vitamin D3] 125 mcg (5,000 unit) tablet 2,000 unit PO QDL Vitamin B-12 5,000 mcg/mL drops 2,000 mcg SUBLINGUAL QDL potassium chloride 10 mEq tablet extended release 10 meq PO BIDM ezetimibe 10 mg tablet 10 mg PO QAM rosuvastatin 40 mg tablet 40 mg PO QDL Discontinued amoxicillin 500 mg tablet 2,000 mg PO ONCE Qty: 20 0RF Rx Instructions: TAKE 4 TABLETS ONE HOUR PRIOR TO DENTAL WORK Discharge Orders: Discharge Order (Routine); Ordered 06/05/25 Ordered By: Mario Taveras Discharge Order- CHF (Routine); Ordered 06/05/25 Ordered By: Mario Taveras Admission Data Admit Date/Time: 06/03/25 21:35 Attending Provider: Mario Taveras Admit Provider: Morris Rojas Primary Care Provider: Nitish Ryan Jr Other Providers: Morris Rojas; Jakub Cruz Hospital Stay Data Consultations 06/03/25 21:00 ED Decision to Admit Stat 06/03/25 23:39 Consult Cardiology Routine Pending Results Patient Have Any Pending Studies at Discharge: No Discharge Instructions Given to Patient (Per Discharging Provider) See your CARDS Dr. Nitish Ryan within 5-7 days of hospital discharge. Total Time Total Time Spent Total Time Spent (In Minutes): 35 minutes. Of this time period, 19 minutes were spent in coordinating patient's discharge. Coding Level of Care Code 71128 INP/OBS DISCH >30 MIN Diagnoses Non-ST elevation DC (NSTEMI) I21.4 History of acute inferior wall DC I25.2 Presence of drug-eluting stent in right coronary artery Z95.5 Hypertension I10 Chronic diastolic CHF (congestive heart failure) I50.32
[2025-06-05 08:54] LABS: ANTI-Xa, UFH(UnfractionatedHep 0.55 IU/ml (0.3-0.7)
--- NOTE | 2025-06-05 09:12 | Cardiology Progress Note ---
Date of Service June 05, 2025 Assessment & Plan (1) Non-ST elevation OK (NSTEMI): (2) Chest pain: (3) CAD (coronary artery disease): (4) Presence of drug-eluting stent in right coronary artery: (5) Hypertension: (6) Hyperlipidemia: (7) Near syncope: (8) History of coronary artery bypass graft: Plan ASSESSMENT/PLAN: 1. CAD s/p CABG x 2 and RCA PCI with NSTEMI: No definite angina. Elevated troponins/NSTEMI. Presentation not likely acute coronary syndrome. No current symptoms suggestive of ischemia or angina. I think will let her walk around today and if she is feeling well will be reasonable to consider discharge. I will discontinue her heparin and she has been on an infusion since admission. She should continue her standard outpatient regimen for secondary prevention which includes an aspirin, Zetia and high-dose rosuvastatin. 2. Chest pain: Was nonexertional and occurred after a near syncopal event. Cannot exclude primary ischemic event but given 's details of the event, less likely. Patient/ does not wish to pursue invasive measures. Conservative management. Heparin discontinued. 3. Near syncope: Possible orthostatic in origin. She also had an element of bradycardia. Metoprolol discontinued. 4. Hypertension: Blood pressure has mostly been normotensive to mildly hypertensive. Continue monitor on an outpatient basis. Admission and Anticipated Discharge Date Admission Date: June 03, 2025 Subjective Patient offers no complaints this morning. However, it was obvious that she was quite confused about the events leading up to her admission and even events which occurred subsequent to admission. She specifically denied any chest discomfort or breathing difficulty. She reported being up to the bathroom with assistance. She denied dizziness or lightheadedness Review of Systems Review of Systems: Unobtainable due to cognitive status Physical Exam Physical Exam: Gen.: No acute distress. Alert. HEENT: Anicteric sclera. Neuro: Cranial nerves intact Cardiac: Regular. Normal S1-S2. No murmurs, rubs, or gallops. Pulmonary: Clear to auscultation bilaterally without wheezes, rales, or rhonchi. Results & Data Vital Signs (Past 12 Hours) Vital Signs Temp Pulse Pulse Resp BP Pulse Ox O2 Del Method 06/05/25 08:01 36.7 C 56 L 18 129/67 97 Room Air 06/05/25 02:45 36.7 C 54 L 18 128/79 98 Room Air 06/04/25 22:15 36.7 C 48 L 18 120/69 97 Room Air 06/04/25 21:40 51 L Laboratory Results Abnormal Lab Results 06/04/25 06/05/25 11:13 06:05 WBC 5.30 RBC 4.70 Hgb 13.8 Hct 41.9 MCV 89.1 MCH 29.4 MCHC 32.9 RDW Std Deviation 48.5 H RDW Coeff of Randell 14.6 H Plt Count 173 MPV 10.4 Immature Gran % (Auto) 0.4 Neut % (Auto) 48.9 Lymph % (Auto) 35.1 [place] % (Auto) 10.2 Eos % (Auto) 4.3 Baso % (Auto) 1.1 Neut # (Auto) 2.59 Lymph # (Auto) 1.86 [place] # (Auto) 0.54 Eos # (Auto) 0.23 Baso # (Auto) 0.06 Immature Gran # (Auto) 0.02 Heparin Anti-Xa, Unfract 0.55 Sodium 142 Potassium 3.9 Chloride 108 H Carbon Dioxide 28 Anion Gap 6 BUN 19 Creatinine 1.10 Est Cr Clr Drug Dosing 34.7 eGFR 49.24 BUN/Creatinine Ratio 17.3 Glucose 89 Calcium 8.7 Magnesium 2.2 Total Bilirubin 1.3 H AST 27 ALT 27 Alkaline Phosphatase 36 Troponin I High Sens 357.2 H* Total Protein 6.2 Albumin 3.9 Globulin 2.3 L Albumin/Globulin Ratio 1.7 PG Care Time/CCT Total # of Minutes Spent Total Time Spent with Patient: Total time spent is greater than 50% in coordination of care (as documented) at patient's floor/unit and/or counseling patient: Coding Level of Care Code 36117 SUB INP/OBS CARE 2/35MIN Diagnoses Non-ST elevation OK (NSTEMI) I21.4 Chest pain R07.9 CAD (coronary artery disease) I25.10 Presence of drug-eluting stent in right coronary artery Z95.5 Hypertension I10 Hyperlipidemia E78.5 Near syncope R55 History of coronary artery bypass graft Z95.1
[2025-06-05 09:57] VITALS: PULSE 68
--- NOTE | 2025-06-05 12:12 | Electrocardiogram Report ---
Test Reason : Blood Pressure : */* mmHG Vent. Rate : 55 BPM Atrial Rate : 55 BPM P-R Int : 140 ms QRS Dur : 86 ms QT Int : 504 ms P-R-T Axes : 28 24 -27 degrees QTcB Int : 482 ms Sinus bradycardia Nonspecific ST and T wave abnormality Abnormal ECG When compared with ECG of 04-Jun-2025 07:00, T wave inversion now evident in Inferior leads Confirmed by Bran Field ([id number]) on 06/05/2025 12:11:32 PM Referred By: REFERRED SELF Confirmed By: Bran Field
== END 2025-06-05 10:56 | disposition home or self-care (01) | DRG 281 ==
LOC: ED 19:07 → SUATTDRO 21:35 → 2S 21:35

== ENCOUNTER 2025-06-05 12:11 | Inpatient (IN) ==
[2025-06-05] MEDS: NOREPINEPHRINE/D5W 4 MG/250 ML IV ONE ×2 (12:35→14:50)
[2025-06-05] MEDS: ASPIRIN CHEW 324 MG ONE (12:40)
[2025-06-05 12:43] LABS: Hematocrit (blood only) 41.2 % (37.0-47.0); Hemoglobin 13.5 g/dl (12.0-16.0); Immature Granulocytes # (auto) 0.01 K/uL (0.01-0.20); Immature Granulocytes % (auto) 0.2 %; Mean Corpuscular Hemoglobin 29.2 pg (25.0-34.0); Mean Corpuscular Volume 89.2 fL (80.0-100.0); Platelet Count 184 K/uL (130-400); RDW Standard Deviation 48.9 fL (36.4-46.3); Red Blood Count 4.62 M/uL (4.20-5.40); White Blood Count 5.74 K/ul (4.8-10.8)
[2025-06-05] MEDS: ONDANSETRON INJ 2 MG/ML 2 ML VIAL ONE (12:47)
[2025-06-05] MEDS: ATROPINE SO4 1 MG/ML 1ML VIAL ONE (12:54)
[2025-06-05] MEDS: DOPamine 400MG / 250ML D5W IV ONE (12:57)
[2025-06-05 13:09] LABS: INR 1.0 (0.9-1.1); Prothrombin Time 10.6 Seconds (9.0-12.0)
--- NOTE | 2025-06-05 13:12 | XRay Report ---
SINGLE VIEW CHEST CLINICAL HISTORY: Trauma FINDINGS: An AP, portable, upright chest radiograph is compared to study dated 06/03/2025. The examina tion is degraded by portable technique and patient rotation. The patient is status post midline anderson otomy. The heart is enlarged noting atherosclerotic calcification of the thoracic aorta. There is pul monary vascular congestion. There is chronic elevation of the right hemidiaphragm. Atelectasis is not ed at the lung bases. Question small pleural effusions. No pneumothorax is seen. The skeletal structu res are osteopenic. The bony thorax is grossly intact. IMPRESSION: 1. Cardiomegaly with pulmonary vascular congestion. Radiographic follow-up to resolution is recommend ed. 2. Question small pleural effusions. ACT 112: Negative or not required by law. Electronically signed by: Myles Ramirez M.D. 06/05/2025 1:11 PM
[2025-06-05 13:20] LABS: Alanine Aminotransferase 27.0 U/L (7-52); Albumin Globulin Ratio 1.7 (0.9-2); Alkaline Phosphatase 36.0 U/L (34-104); Anion Gap 8.0 (3-11); Bilirubin,Total 1.3 mg/dl (0.2-1.0); Blood Urea Nitrogen 19.0 mg/dl (6-23); Calcium 9.1 mg/dl (8.6-10.3); Carbon Dioxide 26.0 mmol/L (21-32); Chloride 106.0 mmol/L (98-107); Creatinine Clr Calc Pharmacy 32.3 ml/min; Globulin 2.4 gm/dl (2.5-4.0); Glucose 120.0 mg/dl (70-99(Fasting)); Magnesium 2.1 mg/dl (1.7-2.4); Potassium 4.5 mmol/L (3.5-5.1); Sodium 140.0 mmol/L (136-145); Thyroid Stimulating Hormone 5.936 uIu/ml (0.300-4.500); Total Protein 6.4 gm/dl (6.0-8.3)
--- NOTE | 2025-06-05 13:24 | Procedure Note ---
Procedure Note Date of Service June 05, 2025 Procedure date: Noted above Procedure: Central venous access Pre-procedure indication: CODE BLUE need for vascular access Post-procedure Diagnosis: same as above Prior to Procedure: Informed Consent: Emergent consent implied Attending Staff: Carloz Veliz DO Resident/APC: None Skin Prep: Chlorhexidine Description of Procedure: After sterile prep, utilizing standard sterile technique the superficial skin of the left subclavian area was anesthetized. The target vessel was identified and entered with an 18-gauge needle. Dark venous blood return was noted, there was no pulsatility and it did not travel beyond 5 cm elevation beyond the fluid with static access. A guidewire was inserted through the needle and into the vessel. The needle was withdrawn and a skin dasha was made. A tissue dilator was advanced via Seldinger technique and removed. A triple lumen catheter was inserted via Seldinger technique and the guidewire removed. All ports colin and flushed easily. A Biopatch was placed, and the catheter was secured via silk suture. A sterile dressing was then applied. Complications: None [facility] Procedure Codes (Charges) Tubes, Drains, and Vasc Access Procedure 1: Tubes, Drains, and Vasc Access: [id number] Insertion Of Non-tunneled Catheter Age 4 Yrs> Coding CPT Codes Tubes, Drains, and Vasc Access - Tubes, Drains, and Vasc Access: [id number] Insertion Of Non-tunneled Catheter Age 4 Yrs> ([id number]) Additional Codes Date of Service (PG.SURGERY)
[2025-06-05] MEDS: STAT IV Infusion **Titration per Protocol STA (13:25)
[2025-06-05] MEDS: RAPID SEQUENCE INDUCTION BAG ONE (13:26)
[2025-06-05] MEDS: ASPIRIN CHEW 324 MG PO STA (13:28)
--- NOTE | 2025-06-05 13:32 | Emergency Department Note ---
Impression & Plan ST elevation (STEMI) myocardial infarction, Endotracheally intubated, Syncope and collapse ED Provider Note HISTORY OF PRESENT ILLNESS: Patient is a 84-year-old female presenting with chest pain and syncope. Patient presents via private vehicle with . Patient was just discharged from the hospital after being admitted for an NSTEMI and near syncope. stated that the patient went home and stated that she did not feel well and got very weak and diaphoretic and had a near syncopal episode again. Patient states that she is having pain in her chest and behind her ears. She states "I just do not feel well." Patient's reports that he gave her a dose of aspirin and a sublingual nitro prior to arrival in the emergency department. ROS: as above PHYSICAL EXAM: Constitutional: Patient appears in mild distress. HENT: Head: Normocephalic and atraumatic. Eyes: EOMI, PERRL Mouth/Throat: Mucous membranes moist. Neck: Trachea midline. Neck supple. Cardiovascular: RRR, No murmurs, rubs or gallops. Intact distal pulses. Pulmonary/Chest: No respiratory distress. Breath sounds clear and equal bilaterally. No wheezes or rales. Abdominal: Abdomen soft, no tenderness, rebound or guarding. Musculoskeletal: No edema, tenderness or deformity noted. Skin: Warm and dry. No rash, erythema, pallor or cyanosis Psychiatric: Appropriate mood and affect for situation. Neurological: Alert and keenly responsive. CN II-XII grossly intact, moving all extremities equally and fully. MDM: - Vitals signs showed bradycardia - History obtained via patient and patient's . History as above. - Chronic conditions affecting care: HTN; HLD; CAD (s/p PCI) - Differential diagnoses include, but are not limited to: Acute coronary syndrome; pulmonary embolism; dissection; tension pneumothorax; esophageal rupture; pneumonia - Order placed for continuous cardiac monitoring. At this time, monitor showed rate of 64 bpm with normal sinus rhythm, per my interpretation. - External medical records reviewed. Discharge summary dated today at 831 was reviewed. Patient was admitted to the hospital for NSTEMI and near syncope. She had an echocardiogram performed on 06/04/2025 at 6:16 AM which showed an EF of 60 to 65% with grade 2 left ventricular diastolic dysfunction. - EKG image interpreted by myself showed normal sinus rhythm. Bradycardic rate at 45 bpm. QT 512. Noted to have findings of a STEMI with depressions in leads I, aVL and V2. Also noted to have elevations in lead III. - HEART alert activated - Patient took 81 mg aspirin earlier today. Given 243 mg PO aspirin on arrival. - Repeat EKG obtained given the patient's electrical changes on telemetry monitoring. Repeat EKG image obtained at 12:29 showed normal sinus rhythm. Rate 51 bpm. QT 490. Noted to have worsening ischemic changes with profound ST depressions in leads I and aVL with elevations in leads II, III and aVF. - Patient became hypotensive and bradycardic down into the 20s to 30s. Pacer pads were placed on the patient. 2.5 L of normal saline was pressure bagged in with minimal improvement in the patient's pressures. Peripheral Levophed was initiated for blood pressure management. - Patient's blood pressure initially improved to 80s over 60s on Levophed. However, she started to vomit and vasovagal then her heart rate went down into the low 20s. Monitor soda clerk called a CODE BLUE on the patient. ICU presented to bedside. However, the patient had palpable carotid pulse and femoral pulse on my palpation. Cardiology also presented to bedside. Given patient's persistent bradycardia, she started to be transcutaneously paced. 1 mg of IV atropine was administered. Dopamine was started in addition to the IV Levophed for pressure support. Patient was still bradycardic and was given a second dose of 1 mg of IV atropine. - Patient noted to become significantly more confused and deemed to be unstable from a respiratory standpoint for the Jowl Trimmer. Decision was made to endotracheally intubate the patient. She was given 0.1 mg of IV epinephrine for further blood pressure management prior to rapid sequence intubation. RSI performed with 20 mg of etomidate and 100 mg of IV succinylcholine. - Patient became hypoxic after intubation. She was disconnected from the ventilator and [id number] was utilized and she was repositioned on the bed with saturations improving to the low 90s. - ICU placed left subclavian triple lumen catheter. - Cardiology performed [id number] bedside echocardiogram which showed decreased movement of the inferior wall and septum, consistent with patient's inferior STEMI. - Patient taken to the cardiac catheterization lab. She will be admitted to the ICU under the inpatient [place] hospitalist service for further evaluation management - Laboratory workup interpreted by myself showed normal WBC; stable electrolytes; elevated troponin I have personally spent 89 minutes of critical care time in the direct management of this patient. This includes bedside care, interpretation of diagnostic studies, and testing, discussion with consultants, patient, and family members, and other required patient management activities. This 89 minutes is in excess of all separately billable procedures. PROCEDURE: Endotracheal Intubation Indication: Altered mental status; decreasing respiratory drive The patient was on 100% oxygen via NRB prior to the procedure. Suction, airway equipment, RSI drugs, respiratory equipment, and appropriate personnel were prepared prior to the initiation of the procedure. A time out was taken. Induction was performed with 20 mg IV etomidate and paralysis with 100 mg IV succinylcholine. After observing the clinical benefit of the medications, the airway was easily visualized utilizing a mac 3 glidescoe. A 7.5 size ETT tube was placed atraumatically to 21 cm using standard technique. The cuff inflated without signs of malfunction. There were bilateral breath sounds, positive colormetric change, no gastric sounds, a good capnography waveform, and post procedure pulse oximetry was 95%. ASSESSMENT AND PLAN: Diagnosis: STEMI; endotracheally intubated; syncope and collapse Plan: to slab polisher then admission Past Med/Surg History Problem List Syncope and collapse (Acute) Endotracheally intubated (Acute) ST elevation (STEMI) myocardial infarction (Acute) Chronic diastolic CHF (congestive heart failure) Near syncope Non-ST elevation AK (NSTEMI) (Acute) Chest pain (Acute) Elevated glucose Antiplatelet or antithrombotic long-term use CAD (coronary artery disease) Hyperlipidemia Hypertension Presence of drug-eluting stent in right coronary artery History of acute inferior wall AK History of right hip replacement Medical History Follow-up of acute inferior myocardial infarction Dysphagia Anemia Cardiogenic shock Acute hypotension Chest pain Acute AK Encounter for pre-operative examination Osteopenia Surgical History History of lumpectomy of right breast History of dilatation and curettage History of hysterectomy History of colonoscopy History of cataract surgery History of coronary artery bypass graft History of cardiac cath Family History Mother Family hx of colon cancer Social History Smoking Status: Never smoker Second Hand Exposure: No; Do You Dip or Chew Tobacco: No; Hx Alcohol Use: No Hx Substance Use: No Preferred Language: Egyptian Communication Ability: Effective Wheel Braider Required: No Beliefs That Will Affect Care: None marital status: Current Living Situation: Spouse current occupation: Retired Feels Safe at Home: Yes Assistive Devices: None Allergies Allergies Allergy/AdvReac Type Severity Reaction Status Date / Time No Known Drug Allergies Allergy Verified 01/29/25 13:59 Home Meds Home Medications Medication Instructions Recorded Confirmed biotin 1 mg capsule 1 mg PO QDL 11/18/18 06/05/25 coenzyme Q10 100 mg capsule 100 mg PO QAM 11/18/18 06/05/25 (CoQ-10) omega 3 350 mg-dha 235 mg-epa 90 1 cap PO .EVERY 14 DAYS 11/18/18 06/05/25 mg-fish oil 597 mg capsule,delay rel ([facility]-3) multivitamin-ferrous 1 tab PO WK 11/24/18 06/05/25 fumarate-folic acid 18 mg-400 mcg tablet (Daily Multivitamin with Iron) alendronate 70 mg tablet 70 mg PO Q7D 12/30/19 06/05/25 aspirin 81 mg tablet,delayed 81 mg PO QAM 12/30/19 06/05/25 release metronidazole 0.75 % topical cream 1 applic topical DAILY 01/01/23 06/05/25 cholecalciferol (vitamin D3) 125 2,000 unit PO QDL 04/29/23 06/05/25 mcg (5,000 unit) tablet (Vitamin D3) cyanocobalamin (vitamin B-12) 2,000 mcg sublingual QDL 04/29/23 06/05/25 5,000 mcg/mL sublingual drops (Vitamin B-12) ezetimibe 10 mg tablet 10 mg PO QAM 06/03/25 06/05/25 potassium chloride 10 mEq 10 meq PO BIDM 06/03/25 06/05/25 tablet,extended release rosuvastatin 40 mg tablet 40 mg PO QDL 06/03/25 06/05/25 Previous Rx's Medication Instructions Recorded nitroglycerin 0.4 mg sublingual 0.4 mg sublingual Q5M PRN chest 01/14/24 tablet pain #25 tabs Results & Data (ED) Vital Signs Vital Signs - 24 hr 06/05/25 12:13 06/05/25 12:21 06/05/25 12:36 Temperature 36.3 C L Temperature Source Oral Pulse Rate 43 L Pulse Rate from SpO2 Sensor Respiratory Rate 16 Respiratory Effort / Characteristics Non-Labored Spontaneous Respiratory Depth Normal Respiratory Pattern Regular Blood Pressure 117/65 56/39 L Blood Pressure Mean 82 41 Pulse Oximetry 96 Oxygen Delivery Method Room Air Fraction of Inspired Oxygen Sepsis Recent Fever Within 48 Hours No Sepsis New/Unexplained Change in Mental Status No Sepsis Action Taken by Nursing No Action Required 06/05/25 12:39 06/05/25 12:41 06/05/25 12:44 Temperature Temperature Source Pulse Rate 46 L 44 L Pulse Rate from SpO2 Sensor Respiratory Rate 21 Respiratory Effort / Characteristics Respiratory Depth Respiratory Pattern Blood Pressure 66/46 L Blood Pressure Mean 53 Pulse Oximetry Oxygen Delivery Method Fraction of Inspired Oxygen Sepsis Recent Fever Within 48 Hours Sepsis New/Unexplained Change in Mental Status Sepsis Action Taken by Nursing 06/05/25 12:48 06/05/25 12:52 06/05/25 12:53 Temperature Temperature Source Pulse Rate 0 L 53 L Pulse Rate from SpO2 Sensor 51 L Respiratory Rate 19 Respiratory Effort / Characteristics Respiratory Depth Respiratory Pattern Blood Pressure 67/39 L Blood Pressure Mean 41 Pulse Oximetry 94 Oxygen Delivery Method Fraction of Inspired Oxygen Sepsis Recent Fever Within 48 Hours Sepsis New/Unexplained Change in Mental Status Sepsis Action Taken by Nursing 06/05/25 12:57 06/05/25 13:03 06/05/25 13:12 Temperature Temperature Source Pulse Rate 29 L 120 H 82 Pulse Rate from SpO2 Sensor 31 L 82 Respiratory Rate 18 27 H 17 Respiratory Effort / Characteristics Respiratory Depth Respiratory Pattern Blood Pressure 125/82 Blood Pressure Mean 96 Pulse Oximetry 98 83 L Oxygen Delivery Method Fraction of Inspired Oxygen Sepsis Recent Fever Within 48 Hours Sepsis New/Unexplained Change in Mental Status Sepsis Action Taken by Nursing 06/05/25 13:17 06/05/25 13:36 Temperature Temperature Source Pulse Rate 64 Pulse Rate from SpO2 Sensor Respiratory Rate 24 Respiratory Effort / Characteristics Respiratory Depth Respiratory Pattern Blood Pressure Blood Pressure Mean 101 Pulse Oximetry 100 Oxygen Delivery Method Fraction of Inspired Oxygen 100 Sepsis Recent Fever Within 48 Hours Sepsis New/Unexplained Change in Mental Status Sepsis Action Taken by Nursing Laboratory Data 06/05/25 12:27 06/05/25 12:27 Lab Results 06/05/25 06/05/25 Range/Units 12:27 12:34 WBC 5.74 (4.8-10.8) K/ul RBC 4.62 (4.20-5.40) M/uL Hgb 13.5 (12.0-16.0) g/dl POC Hgb 13.9 (12.0-16.0) g/dl Hct 41.2 (37.0-47.0) % POC Hct 41 (37-47) % MCV 89.2 (80.0-100.0) fL MCH 29.2 (25.0-34.0) pg MCHC 32.8 (32.0-36.0) g/dL RDW Std Deviation 48.9 H (36.4-46.3) fL RDW Coeff of Randell 14.9 H (11.5-14.5) % Plt Count 184 (130-400) K/uL MPV 10.4 (9.4-12.4) fL Immature Gran % (Auto) 0.2 % Neut % (Auto) 45.5 % Lymph % (Auto) 39.4 % [place] % (Auto) 10.8 % Eos % (Auto) 3.1 % Baso % (Auto) 1.0 % Neut # (Auto) 2.61 (1.40-6.50) K/uL Lymph # (Auto) 2.26 (1.20-3.40) K/uL [place] # (Auto) 0.62 H (0.11-0.59) K/uL Eos # (Auto) 0.18 (0.00-0.50) K/uL Baso # (Auto) 0.06 (0.00-0.20) K/uL Immature Gran # (Auto) 0.01 (0.01-0.20) K/uL PT 10.6 (9.0-12.0) Seconds INR 1.0 (0.9-1.1) POC Sodium 141 (135-144) mmol/L Sodium 140 (136-145) mmol/L POC Potassium 4.6 (3.3-5.0) mmol/L Potassium 4.5 (3.5-5.1) mmol/L POC Chloride 104 (101-112) mmol/L Chloride 106 (98-107) mmol/L Carbon Dioxide 26 (21-32) mmol/L POC Total CO2 24 (24-31) mmol/L Anion Gap 8 (3-11) POC Anion Gap 18.0 (16-25) mmol/L POC BUN 21 H (7-18) mg/dl BUN 19 (6-23) mg/dl Creatinine 1.19 (0.6-1.2) mg/dl POC Creatinine 1.3 (0.6-1.3) mg/dl Est Cr Clr Drug Dosing 32.3 ml/min eGFR 44.81 BUN/Creatinine Ratio 16.0 (10-20) Glucose 120 H (70-99(Fasting)) mg/dl POC Glucose (other) 116 H (70-99) mg/dl Calcium 9.1 (8.6-10.3) mg/dl POC Ioniz Calcium Olvin 1.15 (1.12-1.32) mmol/l Magnesium 2.1 (1.7-2.4) mg/dl Total Bilirubin 1.3 H (0.2-1.0) mg/dl AST 27 (13-39) U/L ALT 27 (7-52) U/L Alkaline Phosphatase 36 (34-104) U/L Troponin I High Sens 140.8 H* D (0-14) pg/ml Total Protein 6.4 (6.0-8.3) gm/dl Albumin 4.0 (3.4-5.0) gm/dl Globulin 2.4 L (2.5-4.0) gm/dl Albumin/Globulin Ratio 1.7 (0.9-2) TSH 5.936 H (0.300-4.500) uIu/ml Free T4 0.71 (0.61-1.60) ng/dl Administered Medications Discontinued Medications Aspirin (Aspirin Chew 324 Mg) 243 mg PO NOW STA Stop: 06/05/25 12:38 Last Admin: 06/05/25 13:28 Dose: 243 mg Documented By: SNS Aspirin (Aspirin Chew 324 Mg) Confirm Administered Dose 324 mg .ROUTE .STK-MED ONE Stop: 06/05/25 12:38 Last Admin: 06/05/25 12:40 Dose: 243 mg Documented By: ERLIN Atropine Sulfate (Atropine So4 1 Mg/Ml 1ml Vial) Confirm Administered Dose 1 mg .ROUTE .STkaufDA-Xeros ONE Stop: 06/05/25 12:54 Last Admin: 06/05/25 12:54 Dose: 1 mg Documented By: ERLIN Dopamine HCl/Dextrose (Dopamine 400mg / 250ml D5w) Confirm Administered Dose 400 mg IV .STK-MED ONE Stop: 06/05/25 12:56 Last Admin: 06/05/25 12:57 Dose: 10 mcg.per.kg Documented By: ERLIN Sharmaaneous (Stat Iv Infusion Titration Per Protocol) 1 each N/A NOW STA Stop: 06/05/25 12:40 Last Admin: 06/05/25 13:25 Dose: Not Given Documented By: ERLIN Miscellaneous (Rapid Sequence Induction Bag) Confirm Administered Dose 1 each N/A .STK-MED ONE Stop: 06/05/25 12:58 Last Admin: 06/05/25 13:26 Dose: Not Given Documented By: ERLIN Norepinephrine Bitartrate (Norepinephrine/D5w 4 Mg/250 Ml) Confirm Administered Dose 4 mg IV .STkaufDA-Xeros ONE Stop: 06/05/25 12:34 Last Admin: 06/05/25 13:29 Dose: Not Given Documented By: ERLIN Ondansetron HCl (Ondansetron Inj 2 Mg/Ml 2 Ml Vial) Confirm Administered Dose 4 mg .ROUTE .EcTownUSA-Xeros ONE Stop: 06/05/25 12:47 Last Admin: 06/05/25 12:47 Dose: 4 mg Documented By: ERLIN Imaging Data Radiologist's Impression: Chest X-Ray 06/05/25 00:00 SINGLE VIEW CHEST CLINICAL HISTORY: Trauma FINDINGS: An AP, portable, upright chest radiograph is compared to study dated 06/03/2025. The examination is degraded by portable technique and patient rotation. The patient is status post midline sternotomy. The heart is enlarged noting atherosclerotic calcification of the thoracic aorta. There is pulmonary vascular congestion. There is chronic elevation of the right hemidiaphragm. Atelectasis is noted at the lung bases. Question small pleural effusions. No pneumothorax is seen. The skeletal structures are osteopenic. The bony thorax is grossly intact. IMPRESSION: 1. Cardiomegaly with pulmonary vascular congestion. Radiographic follow-up to resolution is recommended. 2. Question small pleural effusions. ACT 112: Negative or not required by law. Electronically signed by: Myles Ramirez M.D. 06/05/2025 1:11 PM Discharge Plan Visit Data Chief Complaint: Syncope Stated Complaint: FAINTING TODAY ED Provider: Caroline Rajan Discharge Problem: ST elevation (STEMI) myocardial infarction, Endotracheally intubated, Syncope and collapse Condition: Critical
[2025-06-05] MEDS ORDERED: MoRPHine SULFATE 2 MG/ML CARP IV PRN (13:56)
[2025-06-05] MEDS ORDERED: NITROGLYCERIN SL 0.4 MG/TAB TAB SL PRN ×2 (13:59→14:53)
[2025-06-05] MEDS: HEPARIN (PORCINE) 1000 UNIT/ML 10 ML (CATH LAB USE ONLY) ONE (14:47)
[2025-06-05] MEDS: OPTIRAY 350 ONE (14:48)
[2025-06-05] MEDS: NITROGLYCERIN/D5W 100MCG/ML 20ML SYR ONE (14:49)
[2025-06-05] MEDS: PROPOFOL IV EMULSION 10 MG/ML 100 ML VIAL (CATH LAB USE ONLY) IV ONE (14:50)
[2025-06-05] MEDS ORDERED: ACETAMINOPHEN 325 MG TAB PO PRN (14:53)
[2025-06-05] MEDS ORDERED: ONDANSETRON INJ 2 MG/ML 2 ML VIAL IV PRN (14:53)
[2025-06-05] MEDS ORDERED: ATROPINE SULFATE 0.1 MG/ML 10ML SYR IV PRN (14:53)
--- NOTE | 2025-06-05 14:53 | Post Anesthesia Assessment ---
Date of Service June 05, 2025 Post Sedation Assessment Vital Signs Temp Pulse Resp BP Pulse Ox O2 Del Method FiO2 06/05/25 13:36 64 24 100 100 06/05/25 13:12 82 17 125/82 83 L 06/05/25 13:03 120 H 27 H 06/05/25 12:57 29 L 18 98 06/05/25 12:53 53 L 06/05/25 12:52 67/39 L 06/05/25 12:48 0 L 19 94 06/05/25 12:44 66/46 L 06/05/25 12:41 44 L 06/05/25 12:39 46 L 21 06/05/25 12:36 56/39 L 06/05/25 12:21 36.3 C L 06/05/25 12:13 43 L 16 117/65 96 Room Air Discharge Sedation Level of Care: Higher Level of Care Post Sedation Plan On clinical assessment, the patient appears to have tolerated the sedation without complications. Patient is recovering as anticipated. Patient will continue to be monitored by nursing and may be discharged when sedation discharge criteria are met per below protocol. Upon Completions of procedure up to 15 minutes continue every 5 minute vital signs and the P.A.R. score; then discharge to a Phase I or Fast Track to Phase II per the following guidelines: * Discharge Patient to appropriate Phase II area if PAR is 8 or greater or return to pre- procedure baseline. The post - procedure orders will be as directed. * If PAR score is less than 8 or not return to pre-procedure baseline then patient will follow Phase I monitoring till PAR is reached for Phase II. The Phase I may be done in procedure room or may call to secure a Phase I area. * If naloxone or flumazenil are used for reversal, hold in Phase I for continued monitoring from when last reversal dose was given for a minimum of 60 minutes or longer pending the nurse and/or physician discretion of patient condition before discharge to Phase II. Please call the Sedation Physician to re-evaluate and complete post-note for discharge to Phase II area. Do NOT discharge from procedure sedation or Phase 1 until post- sedation evaluation note is complete by procedure /sedation MD Sedation Discharge Instructions to be given to the patient at discharge to home.
--- NOTE | 2025-06-05 14:53 | Pre Anesthesia Assessment ---
Date of Service June 05, 2025 Pre Sedation Assessment Vital Signs Temp Pulse Resp BP Pulse Ox O2 Del Method FiO2 06/05/25 13:36 64 24 100 100 06/05/25 13:12 82 17 125/82 83 L 06/05/25 13:03 120 H 27 H 06/05/25 12:57 29 L 18 98 06/05/25 12:53 53 L 06/05/25 12:52 67/39 L 06/05/25 12:48 0 L 19 94 06/05/25 12:44 66/46 L 06/05/25 12:41 44 L 06/05/25 12:39 46 L 21 06/05/25 12:36 56/39 L 06/05/25 12:21 36.3 C L 06/05/25 12:13 43 L 16 117/65 96 Room Air Cardiovascular Additional Comments: Bradycardia, systolic murmur Respiratory Additional Comments: Intubated and sedated Pre-Sedation Airway Assessment Smoking Status: Never smoker Notes The planned sedation has been discussed with the patient. Informed Consent was obtained. I have identified the patient, determined the appropriateness of sedation and have assessed the patient immediately prior to the procedure. All medicine(s) and interventions are by my order.
[2025-06-05] MEDS ORDERED: STAT IV Infusion **Titration per Protocol STA ×3 (15:01→15:05)
[2025-06-05] MEDS ORDERED: 0.2 MICRON FILTER SET 1 EACH IV STA (15:01)
[2025-06-05] MEDS ORDERED: PROPOFOL BOLUS FROM BAG IV PRN (15:05)
[2025-06-05] MEDS: MIDAZOLAM HCL 1 MG/ML 2ML VIAL ONE (15:36)
[2025-06-05] MEDS: AMIODARONE HCL INJ 50 MG/ML 3 ML VIAL (CATH LAB USE ONLY) IV ONE (15:37)
[2025-06-05] MEDS: EPTIFIBATIDE 2 MG/ML 10 ML VIAL (CATH LAB USE ONLY) IV ONE ×2 (15:38→15:39)
[2025-06-05] MEDS: EPTIFIBATIDE BOLUS/DRIP IV STA (15:39)
--- NOTE | 2025-06-05 15:42 | Cardiac Catheterization ---
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 Cardiac Status Clinical evaluation leading to the procedure CAD Presenation: STEMI Anginal Classification: CCS IV Heart Failure: No Cardiogenic Shock within 24 Hours: Yes Cardiac Arrest within 24 Hours: Yes Imaging Studies Past 6 Months: Yes Stress Studies Past 6 Months: No STEMI OR Non-STEMI Symptom Onset Date: 06/05/25 Coronary Anatomy Dominant: Right Left Main (% Stenosis): Normal LAD (% Stenosis): Ostial (100% chronic) D1 (% Stenosis): Normal Circumflex (% Stenosis): Normal OM1 (% Stenosis): Normal L PL1 (% Stenosis): Normal RCA (% Stenosis): Proximal (100% (thrombus)) R PDA (% Stenosis): Normal R PL1 (% Stenosis): Normal Grafts - LAD (%): Normal (HANKS to LAD atretic) Grafts - Ramus (%): Normal (SVG to ramus/D1: Mid 30%) Diagnostic Physicians Name: Amari Valles MD, PhD Closure Device Percutaneous Entry Location: Femoral Recommendations: Medical Therapy and/or Counseling and PCI without planned CABG PCI Indication: PCI for STEMI - Unstable Reason For Delay in PCI:: Intubation Lesion Segment Name: Proximal through distal RCA Culprit Artery: Yes Stenosis Prior to Rx (%): 100% Chronic Total Occlusion: No Pre-Procedure JOAN Flow: 0 Previously Treated Lesion: Yes Lesion Complexity: Non-High/Non-C Lesion Length (mm): 15 Thrombus Present: Yes (A lot) Bifurcation Lesion: No Guidewire Across Lesion: Yes Intraprocedure Events Significant Disection: No Perforation: No Cardiac Cath Procedure Full Procedure Date June 05, 2025 Pre-Procedure Diagnosis Pre-Procedure Diagnosis: STEMI and Arrhythmia AUC Score AUC Score: 09 Post-Procedure Diagnosis Post-Procedure Diagnosis: Severe CAD (Cardiogenic shock, hemodynamically unstable bradycardia, hypoxia) Procedure(s) Performed Procedure(s) Performed: Coronary Angiography, Drug Eluting Stent, Temporary Pacemaker, Ultrasound Guided Vascular Access and Bypass Graft Angiography Olap Developer Amari Valles MD, PhD Estimated Blood Loss Estimated Blood Loss: 10 cc Medication(s) Medication(s): Dopamine, Heparin, Integrilin, Lidocaine 1% and Norepinephrine Medication(s): Amiodarone Summary of Findings Brief description: Patient was brought to the cardiac catheterization suite where she was shaved and prepped in a sterile fashion. She arrived intubated and sedated from the emergency department. We started propofol drip to maintain sedation. She also was on dopamine and norepinephrine drip for bradycardia and hypotension. Soft tissue of the right groin were anesthetized using 10 mL of 1% Xylocaine. Using the ultrasound for guidance (image saved), the right femoral artery was accessed with a 4 [place] micropuncture kit and a 4 [place] sheath was placed. This was exchanged over a 0.035 wire for a 6 [place] femoral artery sheath. Then, again using the ultrasound for guidance and the micropuncture kit the right femoral vein was accessed and the micropuncture sheath was exchanged for a 6 [place] femoral venous sheath. We proceeded first to coronary angiography. Left coronary angiography in orthogonal views with a 5 [place] JL 4 diagnostic catheter. Patient was provided IV heparin. Saphenous vein graft angiography was performed with a 6 [place] JR4 guide catheter (incidentally cannulated on the way to RCA) Right coronary angiography was performed using a 6 [place] JR4 guide catheter. PCI undertaken by advancing a BMW dorsal guidewire through the guide catheter. It was positioned distally in the RCA. PTCA was performed with a 2.0 x 12 mm trek balloon up to 14 mounika. 3 inflations performed within the RCA. Patient developed polymorphic VT after first inflation. Was provided 300 mg bolus of amiodarone and defib shock at 200 J. 2 additional inflations performed. Patient then had bradycardia and the dopamine drip was increased to 10 mcg/kg/min. We later titrated this down. A 2.5 x 12 mm trek balloon was then advanced and positioned across the distal lesion (prior stent) where it was inflated to 14 mounika. The balloon was then removed. Black Off Worker angiography was performed. We attempted to deliver a 3.0 x 18 Gilberto drug-eluting stent but the tortuosity and calcification proximally prevented. We next tried a 3.0 x 15 mm debora point drug-eluting stent. It also would not pass. Next a 6 [place] coast guide liner was advanced. Then, we were able to deliver a Skypoint 3.0 x 15 mm drug-eluting stent across the lesion. It was deployed at 18 mounika. Stent balloon removed. Black Off Worker angiography performed. ACT returned below therapeutic target. Therefore, additional heparin was provided and later the ACT was checked for being therapeutic. Decision was made to implant a 3.0 x 8 mm Gilberto drug-eluting stent proximal but overlapped with the first stent. It was deployed at 18 mounika. Patient was started on Integrilin as a double bolus administration followed by drip. Finally, a 3.25 x 12 mm NC sprinter balloon was advanced. The stented segment was then postdilated to 15 mounika distally, 16 mounika mid to distal, 17 mounika proximal to mid, and proximal edge at 18 mounika. Balloon was removed. GuideLiner was removed. Final angiographic evaluation was performed. Guide catheter was removed. A 5 [place] JR4 diagnostic catheter was then used to guide the J-wire into the left subclavian. The wire was then extended down the brachial artery and the 5 [place] JR4 was exchanged for a 5 [place] IM catheter. HANKS bypass graft angiography was performed. The catheter and the wire were then removed from the patient. We next turned our attention to transvenous pacing lead insertion. The 6 [place] femoral venous sheath was exchanged over the 0.035 wire for a 7 [place] venous sheath. A 5 [place] transvenous temporary pacing wire with balloon was inserted and the balloon was then inflated. Under fluoroscopic guidance we attempted to place it in the right ventricle. We were unsuccessful in doing so. Therefore, it was exchanged for a second temporary pacing wire and this was successfully advanced into the right ventricle. The balloon was then deflated. Pacing rate was 100 bpm and the current was 1 mA. Confirmed to capture at this setting in the rate was then reduced to 70 bpm. The venous sheath was sutured in place and the sterile cover was also fixed in place. Limited right femoral artery angiography was performed. The arterial sheath was just distal to the hypogastric artery. Decision was made to suture this sheath in place with plan to leave this arterial access available to the ICU team overnight. Eventually the sheath will be removed. Arterial sheath was also sutured in place and dressed sterilely. Patient was then transported to the ICU. This ended the case. Coronary angiography findings: VJK-sphiz-kfzumdp vessel bifurcating into LAD and circumflex. No disease. LAD-appears to be 100% occluded at the ostium. LCx-medium to large caliber vessel traveling in the AV groove. Gives a large branching OM1 which has luminal irregularities. The mid circumflex provides an atrial branch and then the vessel terminates distally into a small posterolateral. There is no significant disease in the distal branches of the circumflex. SZA-saxbl-sufgsdm and dominant vessel. There is calcification in the proximal and mid vessel. There is thrombus in the proximal portion of the vessel which is 100% occluded. JOAN 0 flow. PCI of RCA-0% residual stenosis post PCI with implantation of 2 overlapped drug- eluting stents in the late mid to distal vessel. This includes in-stent from the prior RCA stent. JOAN-3 flow post PCI No evidence of dissection or perforation post PCI Coronary angiography post PCI demonstrates proximal RCA with up to 40% stenosis in the proximal and mid vessel. The PDA and multi branching posterolateral are both large and have no more than mild luminal irregularities. HANKS to LAD-this vessel is very atretic with poor flow to the LAD. SVG to D1/ramus-this vessel is large. Mid graft stenosis is 30%. The [place] vessel fills antegrade as well as retrograde into another large diagonal branch as well as down the mid and distal LAD. These [place] vessels do not appear to have any significant disease. Summary: 1. 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 Additionally, compared to prior catheterization the HANKS to LAD appears more atretic at this time. Fortunately the SVG is widely patent as is the [place] circumflex. 2. Successful PCI with implantation of 2 overlapped drug-eluting stents in the RCA including complete coverage of the old RCA stent. 3. Patient will be on aspirin 81 mg daily, was loaded with 600 mg of Plavix and will then be on 75 mg daily. For the next 18 hours she will also be on Integrilin drip. I recommended the patient remain on dual antiplatelet therapy indefinitely. 4. Patient also with transvenous pacer in place. She is requiring vasopressor support as well. The transvenous pacer should remain in place as the vasopressors (dopamine and norepinephrine) are titrated downward as tolerated. When she no longer requires these agents for blood pressure support then we can try to titrate down the transvenous pacer rate to see if she will maintain an adequate sinus heart rate. My suspicion is that she may require a pacemaker permanently. 5. Guideline directed medical therapy for secondary prevention of coronary disease. Will include rosuvastatin and aspirin. For now we are holding beta- philip and SHER/ARB. However, it would be ideal if she could be on each of these medications prior to discharge. Hemodynamics Rest Ao:: 71/49 mmHg Final Ao: 102/52 mmHg LV: Not performed Recommendations Recommendations: Medical Therapy and/or Counseling and PCI without planned CABG Radiation Exposure (mGy) 1713 mGy, fluoroscopy time 16.2 minutes Contrast (mls) 125 Anesthesia Propofol drip, start 1331, and 1440 Procedural Complication(s) None Disposition ICU I attest to the content of the Intraoperative Record and any orders documented therein. Any exceptions are noted below. [facility] Card Cath Procedure Codes Cardiac Catheterization Procedure 1: Cardiovascular Cath Procedures: 39130 Coronaries and Grafts/IM (venous & atrial) & [facility] Therapeutic Services & Ancillary Procedure 1: Cardiovascular Tx and Anc Procedures: 85087 Temp Pacer Insert Procedure 2: Cardiovascular Tx and Anc Procedures: 08110 Cardioversion Procedure 3: Cardiovascular Tx and Anc Procedures: 28688 Ultrasonic Guidance Vascular Access Moderate Sedation Procedure 1: Sedation/Anesthesia: 45782 Mod Sedation by a different physician ;Init15 Min Child Age 5&Up (Initial 15 minutes, second physician, start 1331) Procedure 2: Sedation/Anesthesia: 10942 Mod Sedation by a different physician;Ea Additional 15 Minutes (Additional 54 minutes, second physician, end 1440) Stenting Procedure 1: Cardiovascular Stent Procedures: 27168 Perc transluminal revascularization of acute sub/total occl, aMI (RCA) PG Care Time/CCT Total # of Minutes Spent Total Time Spent with Patient: Total time spent is greater than 50% in coordination of care (as documented) at patient's floor/unit and/or counseling patient:
--- NOTE | 2025-06-05 15:55 | Electrocardiogram Report ---
Test Reason : Blood Pressure : */* mmHG Vent. Rate : 45 BPM Atrial Rate : 45 BPM P-R Int : 176 ms QRS Dur : 88 ms QT Int : 512 ms P-R-T Axes : 40 41 102 degrees QTcB Int : [address] elevation consider inferior injury or acute infarct ACUTE NH / STEMI Consider right ventricular involvement in acute inferior infarct Abnormal ECG When compared with ECG of 05-Jun-2025 05:09, ST elevation now present in Inferior leads ST now depressed in Lateral leads Nonspecific T wave abnormality now evident in Anterior leads Confirmed by Bran Field ([id number]) on 06/05/2025 3:55:18 PM Referred By: REFERRED SELF Confirmed By: Bran Field
--- NOTE | 2025-06-05 15:55 | Electrocardiogram Report ---
Test Reason : Blood Pressure : */* mmHG Vent. Rate : 51 BPM Atrial Rate : 51 BPM P-R Int : 196 ms QRS Dur : 106 ms QT Int : 490 ms P-R-T Axes : 36 89 109 degrees QTcB Int : 451 ms Sinus bradycardia with Premature atrial complexes ST elevation consider anterolateral injury or acute infarct ST elevation consider inferior injury or acute infarct ACUTE [place] / STEMI Consider right ventricular involvement in acute inferior infarct Abnormal ECG Confirmed by Bran Field ([id number]) on 06/05/2025 3:54:54 PM Referred By: REFERRED SELF Confirmed By: Bran Field
[2025-06-05] MEDS: NOREPINEPHRINE/D5W 4 MG/250 ML PLCT IV SCH ×2 (16:08→16:15)
[2025-06-05] MEDS: AMIODARONE / D5W 150 MG/100 ML BAG IV STA (16:09)
[2025-06-05] MEDS ORDERED: Nursing to Pharmacy Communication SCH ×2 (16:15→18:15)
--- NOTE | 2025-06-05 16:22 | Critical Care Consultation ---
Date of Consultation June 05, 2025 Assessment & Plan (1) ST elevation (STEMI) myocardial infarction: Reason Critically Ill: 84-year-old female in cardiogenic shock underwent successful drug-eluting stent placement PLAN: Neuro: Propofol and fentanyl to facilitate mechanical ventilation - Transition to Versed bolus dosing Resp: Acute respiratory failure secondary to cardiogenic shock - Anticipate spontaneous breathing trial in the morning when on less vasoactive medications CV: Cardiogenic shock - Wean dopamine Levophed as tolerated Coronary artery disease status post ST elevation [place] with transient complete heart block - Drug-eluting stent to right coronary - Dual antiplatelet therapy Episode of ventricular fibrillation - Continue amiodarone infusion Fluids/Renal: Goal to be net even to slightly positive - Avoid aggressive volume resuscitation ID: No indication for anti-infectives at this time GI/Nutrition: History of hyperlipidemia - Zetia 10 mg and Crestor Heme: Type and screen DVT prophylaxis: Lovenox 40 mg daily Endocrine: ICU hyperglycemia protocol Vascular access: Right groin arterial sheath, left subclavian central venous access Code Status: Full code Disposition: ICU (2) Syncope and collapse: (3) CAD (coronary artery disease): (4) Complete heart block, transient: Supervising Physician Co-Signing Physician Notes I have personally spent 65 minutes of critical care time in the direct management of this patient. This is a life/limb threatening event. This includes time spent evaluating patient, direct bedside care, chart review, placing orders, interpretation of diagnostic studies, discussion with consultants, patient, and/or family members regarding treatment decisions, as well as other required patient management activities. This time is exclusive of all separately billable procedures, and teaching time and separate from and in addition to any other critical care service time. History of Present Illness Reason for Consultation: Cardiac arrest, acute coronary syndrome Attending Physician: Mario Taveras MD, PhD History of Present Illness Patient is an 84-year-old female who was recently discharged from the hospital who returns to the emergency department for syncope. In the CODE BLUE was called upon my arrival the patient was being actively manage she was had symptomatic bradycardia that eventually downgraded in 2 third-degree heart block. She was hypotensive and had been started on 2 vasoactive medications. Ultimately she was intubated in the ED, cardiology was the bedside and contacted the cardiac cath team. I placed a emergent left-sided subclavian line for definitive vascular access. Patient went to the cardiac Network [facility] Tester received 2 drug-eluting stents to the right coronary and is transferred to the ICU for further evaluation and management. Allergies Allergy/AdvReac Type Severity Reaction Status Date / Time No Known Drug Allergies Allergy Verified 01/29/25 13:59 Home Medications Medication Instructions Recorded Confirmed Type biotin 1 mg capsule 1 mg PO QDL 11/18/18 06/05/25 History coenzyme Q10 100 mg capsule 100 mg PO QAM 11/18/18 06/05/25 History (CoQ-10) omega 3 350 mg-dha 235 mg-epa 90 1 cap PO .EVERY 14 DAYS 11/18/18 06/05/25 History mg-fish oil 597 mg capsule,delay rel ([place]-3) multivitamin-ferrous 1 tab PO WK 11/24/18 06/05/25 History fumarate-folic acid 18 mg-400 mcg tablet (Daily Multivitamin with Iron) alendronate 70 mg tablet 70 mg PO Q7D 12/30/19 06/05/25 History aspirin 81 mg tablet,delayed 81 mg PO QAM 12/30/19 06/05/25 History release metronidazole 0.75 % topical cream 1 applic topical DAILY 01/01/23 06/05/25 History cholecalciferol (vitamin D3) 125 2,000 unit PO QDL 04/29/23 06/05/25 History mcg (5,000 unit) tablet (Vitamin D3) cyanocobalamin (vitamin B-12) 2,000 mcg sublingual QDL 04/29/23 06/05/25 History 5,000 mcg/mL sublingual drops (Vitamin B-12) nitroglycerin 0.4 mg sublingual 0.4 mg sublingual Q5M PRN chest 01/14/24 06/05/25 Rx tablet pain #25 tabs ezetimibe 10 mg tablet 10 mg PO QAM 06/03/25 06/05/25 History potassium chloride 10 mEq 10 meq PO BIDM 06/03/25 06/05/25 History tablet,extended release rosuvastatin 40 mg tablet 40 mg PO QDL 06/03/25 06/05/25 History Patient History Medical History Follow-up of acute inferior myocardial infarction Dysphagia Anemia Cardiogenic shock Acute hypotension Chest pain Acute IL Encounter for pre-operative examination Osteopenia Surgical History History of lumpectomy of right breast History of dilatation and curettage History of hysterectomy VAGINAL History of colonoscopy History of cataract surgery BILATERAL History of coronary artery bypass graft X2 VESSELS (22 YEARS AGO) History of cardiac cath NO STENTS (PRIOR TO CABG 22 YEARS AGO) Family History Mother Family hx of colon cancer Social History Smoking Status: Never smoker Second Hand Exposure: No; Do You Dip or Chew Tobacco: No; Hx Alcohol Use: No Hx Substance Use: No Preferred Language: Sinhala Communication Ability: Effective Inset Cutter Required: No Beliefs That Will Affect Care: None marital status: Current Living Situation: Spouse current occupation: Retired Other Information That Helps Us Care for You: No Feels Safe at Home: Declines to Answer Assistive Devices: None Physical Exam Physical Exam: General: Sedated. nontoxic. Skin: Warm, dry, Head: Atraumatic Ears, nose, mouth and throat: airway obscured by endotracheal tube Cardiovascular: Normal peripheral perfusion, atka normal sinus rhythm noted on monitor at a rate of 85 Respiratory: Ventilator settings reviewed Gastrointestinal: Non distended Musculoskeletal: No deformity There is a right sided arterial sheath in the right groin with temporary pacer Results & Data Results & Data Vital Signs (Past 12 Hours) Vital Signs Temp Pulse Resp BP Pulse Ox O2 Del Method FiO2 06/05/25 15:58 16 06/05/25 15:35 104 H 24 94 40 06/05/25 13:36 64 24 100 100 06/05/25 13:12 82 17 125/82 83 L 06/05/25 13:03 120 H 27 H 06/05/25 12:57 29 L 18 98 06/05/25 12:53 53 L 06/05/25 12:52 67/39 L 06/05/25 12:48 0 L 19 94 06/05/25 12:44 66/46 L 06/05/25 12:41 44 L 06/05/25 12:39 46 L 21 06/05/25 12:36 56/39 L 06/05/25 12:21 36.3 C L 06/05/25 12:13 43 L 16 117/65 96 Room Air Critical Care Results & Data Vital Signs (Past 12 Hours) Vital Signs Temp Pulse Resp BP Pulse Ox O2 Del Method FiO2 06/05/25 15:58 16 06/05/25 15:35 104 H 24 94 40 06/05/25 13:36 64 24 100 100 06/05/25 13:12 82 17 125/82 83 L 06/05/25 13:03 120 H 27 H 06/05/25 12:57 29 L 18 98 06/05/25 12:53 53 L 06/05/25 12:52 67/39 L 06/05/25 12:48 0 L 19 94 06/05/25 12:44 66/46 L 06/05/25 12:41 44 L 06/05/25 12:39 46 L 21 06/05/25 12:36 56/39 L 06/05/25 12:21 36.3 C L 06/05/25 12:13 43 L 16 117/65 96 Room Air Lab & Micro Results (Past 24 Hours) RBC 4.62 M/uL (4.20-5.40) 06/05/25 WBC 5.74 K/ul (4.8-10.8) 06/05/25 Hgb 13.5 g/dl (12.0-16.0) 06/05/25 Hct 41.2 % (37.0-47.0) 06/05/25 MCV 89.2 fL (80.0-100.0) 06/05/25 MCH 29.2 pg (25.0-34.0) 06/05/25 MCHC 32.8 g/dL (32.0-36.0) 06/05/25 RDW Standard Deviation 48.9 fL (36.4-46.3) H 06/05/25 RDW Coefficient of Variation 14.9 % (11.5-14.5) H 06/05/25 Plt Count 184 K/uL (130-400) 06/05/25 MPV 10.4 fL (9.4-12.4) 06/05/25 Neutrophils (%) (Auto) 45.5 % 06/05/25 Lymphocytes (%) (Auto) 39.4 % 06/05/25 Monocytes # (Auto) 0.62 K/uL (0.11-0.59) H 06/05/25 Eosinophils # (Auto) 0.18 K/uL (0.00-0.50) 06/05/25 Immature Granulocyte % (Auto) 0.2 % 06/05/25 Neutrophils # (Auto) 2.61 K/uL (1.40-6.50) 06/05/25 Lymphocytes # (Auto) 2.26 K/uL (1.20-3.40) 06/05/25 Monocytes # (Auto) 0.62 K/uL (0.11-0.59) H 06/05/25 Eosinophils # (Auto) 0.18 K/uL (0.00-0.50) 06/05/25 Basophils # (Auto) 0.06 K/uL (0.00-0.20) 06/05/25 Immature Granulocyte # (Auto) 0.01 K/uL (0.01-0.20) 5 Na 140 mmol/L (136-145) 06/05/25 K 4.5 mmol/L (3.5-5.1) 06/05/25 Cl 106 mmol/L (98-107) 06/05/25 CO2 26 mmol/L (21-32) 06/05/25 Anion Gap 8 (3-11) 06/05/25 BUN 19 mg/dl (6-23) 06/05/25 Creatinine 1.19 mg/dl (0.6-1.2) 06/05/25 BUN/Creatinine Ratio 16.0 (10-20) 06/05/25 Glu 120 mg/dl (70-99(Fasting)) H 06/05/25 Ca 9.1 mg/dl (8.6-10.3) 06/05/25 Total Bilirubin 1.3 mg/dl (0.2-1.0) H 06/05/25 AST 27 U/L (13-39) 06/05/25 ALT 27 U/L (7-52) 06/05/25 Alkaline Phosphatase 36 U/L (34-104) 06/05/25 TP 6.4 gm/dl (6.0-8.3) 06/05/25 Albumin 4.0 gm/dl (3.4-5.0) 06/05/25 Globulin 2.4 gm/dl (2.5-4.0) L 08/02/25 Albumin/Globulin Ratio 1.7 (0.9-2) 06/05/25 Mg 2.1 mg/dl (1.7-2.4) 06/05/25 12:27 Calcium Level 9.1 mg/dl (8.6-10.3) 06/05/25 12:27 Prothromb Time International Ratio 1.0 (0.9-1.1) 06/05/25 12:2 7 Diagnostic Findings (Past 24 Hours) Chest X-Ray 06/05/25 00:00 SINGLE VIEW CHEST CLINICAL HISTORY: Trauma FINDINGS: An AP, portable, upright chest radiograph is compared to study dated 06/03/2025. The examination is degraded by portable technique and patient rotation. The patient is status post midline sternotomy. The heart is enlarged noting atherosclerotic calcification of the thoracic aorta. There is pulmonary vascular congestion. There is chronic elevation of the right hemidiaphragm. Atelectasis is noted at the lung bases. Question small pleural effusions. No pneumothorax is seen. The skeletal structures are osteopenic. The bony thorax is grossly intact. IMPRESSION: 1. Cardiomegaly with pulmonary vascular congestion. Radiographic follow-up to resolution is recommended. 2. Question small pleural effusions. ACT 112: Negative or not required by law. Electronically signed by: Myles Ramirez M.D. 06/05/2025 1:11 PM RT Ventilator Mngmt (Last Documented) Ventilator Ordered Settings Ventilator Support Mode Assist Control 06/05/25 15:35 Respiratory Rate 16 06/05/25 15:58 Ventilator Tidal Volume 400 06/05/25 15:35 Setting Minute Ventilation 10.4 06/05/25 15:35 Positive End Expiratory 8 06/05/25 15:35 Pressure Fraction of Inspired Oxygen 40 06/05/25 15:35 Machine Comment RR to [address] Veliz 06/05/25 15:58 Ventilator - PT Measurements Respiratory Rate 16 Exhaled Tidal Volume 400 Minute Ventilation 10.4 Peak Inspiratory Airway 20 Pressure Plateau Pressure 17 Respiratory Cycle Inspiratory: 1:2.3 Expiratory Ratio Inspiratory Phase Time 0.75 End-Tidal CO2 24 Static Lung Compliance 44.44 Dynamic Lung Compliance 33.33 Normal Static Lung Compliance 47.00 Coding Level of Care Code 81615 CRITICAL CARE 1ST 30-74M Diagnoses ST elevation myocardial infarction involving right coronary artery I21.11 Involved coronary artery: right coronary artery Syncope and collapse R55 Coronary artery disease involving [place]ka coronary artery of [place]ka heart with angina pectoris I25.119 Coronary Disease-Associated Artery/Lesion type: [place] artery [place] vs. transplanted heart: atka heart Associated angina: with unspecified form of angina Complete heart block, transient I44.2 (1) ST elevation (STEMI) myocardial infarction Involved coronary artery: right coronary artery Qualified Code(s): I21.11 - ST elevation (STEMI) myocardial infarction involving right coronary artery (3) CAD (coronary artery disease) Coronary Disease-Associated Artery/Lesion type: [place] artery [place] vs. transplanted heart: [place]ka heart Associated angina: with unspecified form of angina Qualified Code(s): I25.119 - Atherosclerotic heart disease of [place] coronary artery with unspecified angina pectoris
[2025-06-05] MEDS: SODIUM CHLORIDE 0.9% 1,000 ML IV SCH (16:26)
[2025-06-05] MEDS: AMIODARONE / D5W 360 MG/200 ML BAG IV ONE (16:27)
--- NOTE | 2025-06-05 16:55 | Cardiology Consultation ---
Date of Consultation June 05, 2025 Assessment & Plan (1) Syncope and collapse: Most likely this is related to the bradycardia/transient heart block that she experiences when she has occlusion of her RCA. This also occurred on her prior admission in 2021. At the moment, she has a transvenous pacer in place to be utilized as needed. I would suggest that as we titrate down her vasopressor support we keep the transvenous pacemaker in place as she may become profoundly bradycardic without dopamine and norepinephrine. Then, we could start to titrate down the pacer to see if she can sustain a sinus rhythm long-term. She has had more than 1 myocardial infarction in the RCA distribution and I am con cerned that she will eventually require permanent pacemaker particularly for us to optimize her medical therapy. (2) ST elevation (STEMI) myocardial infarction: Recurrent inferior ST elevation HI of the RCA. Successful PCI. We placed 2 overlapped drug-eluting stents in the mid and distal RCA covering the previous stent which seemed to harbor thrombus after the angioplasty portion of the procedure. She will remain on aspirin 81 mg daily and Plavix 75 mg daily indefinitely. These will start tomorrow. Today she was placed on Integrilin drip after double bolus administration and the drip should be maintained for 18 hours (DC at 0900 on 06/06/2025). Eventually we will get her on complete guideline directed medical therapy. For now, in addition to the aspirin she sh ould be on rosuvastatin 40 mg daily. Holding beta-philip because of bradycardia/hypotension and SHER inhibitor/ARB secondary to hypotension/CKD. (3) CAD (coronary artery disease): Severe multivessel coronary disease. Prior two-vessel CABG with HANKS to LAD and SVG to diagonal/ramus. HANKS to LAD is atretic and does not provide much flow to the LAD. Fortunately, the SVG is patent and provides significant flow to the diagonal, ramus, and LAD. The nome circumflex and its branches are widely patent. The RCA is once again patent and is dominant providing a large PDA and a large multi branching posterolateral. I do recommend we obtain an echocardiogram to reevaluate EF and wall motion. Ultimately, the patient will be placed on maximum guideline directed medical therapy as tolerated. (4) Hyperlipidemia: Patient is high risk. High intensity statin therapy with rosuvastatin and Zetia. (5) Hypertension: Currently hypotensive requiring 2 vasopressors. Therefore holding all antihypertensives. Would like to get her back on beta-philip and consider addition of SHER inhibitor/ARB/Entresto as indicated by her clinical status/EF/renal function. (6) Cardiogenic shock: Maintaining adequate blood pressure on 2 vasopressors. Gradually wean these down. Since we were relatively quick in getting reperfusion I am hopeful that she will be able to maintain blood pressure without vasopressors by tomorrow. History of Present Illness Reason for Consultation: ST elevation HI, cardiogenic shock, bradycardia Attending Physician: Mario Taveras MD, PhD History of Present Illness 84-year-old female with a prior history of inferior ST elevation HI, two-vessel coronary artery bypass grafting (HANKS to LAD and SVG to D1/ramus) with stenting in July [address] elevation HI. Patient had been discharged from the hospital today. She had initially presented on 03 June after sustaining syncopal episode. She was found to have elevated troponins, no significant EKG changes, and no significant echo changes on evaluation by cardiology. Discussion was made regarding proceeding with catheterization at that time. The patient's and 's description of her presentation was not clearly suggestive of ACS. Recommendation was made for definitive evaluation by cardiac catheterization but the patient and her declined. They were then discharged this morning. According to her she was only home about 45 minutes when she had sudden onset chest pain and a second syncopal episode. She did recover consciousness and he provided her with nitroglycerin for her chest pain. However, she felt worse and they therefore came to the emergency department. Here she was found to have bradycardia, hypotension, and evidence of acute inferior ST elevation HI. A "heart alert" was then called and on my arrival she was receiving vasopressor support for her hypotension and continue with significant chest discomfort. We then prepared to transfer her to the cardiac catheterization suite upon arrival of the cath team. However, in the interim she evidently had profound bradycardia, hypoxia, and blood pressure dropped further. Therefore, a CODE BLUE was called in the emergency department and the patient ended up being intubated, sedated with etomidate, and a central venous line was placed by the ICU team. Her blood pressure and hypoxia then stabilized and she was transferred to the cardiac catheterization suite. There, coronary angiography was performed via the right femoral artery approach. She had an occluded RCA which was initially treated with heparin, Integrilin, and angioplasty. She developed polymorphic VT requiring a single shock at 200 J and she was successfully defibrillated to sinus bradycardia. She was started on amiodarone as a 300 mg bolus followed by drip. Her dopamine and norepinephrine which had been placed in the emergency department were titrated up. We were then able to complete PCI of the RCA with implantation of a large caliber drug- eluting stent inside the old drug-eluting stent as well as a second large caliber drug-eluting stent implanted just proximal in an overlap fashion. This resulted in good angiographic outcome and return to [place]-3 flow. Although the patient's heart rate seem to be more stable decision was made to utilize the venous sheath which had been obtained in the beginning of the case and placed a temporary pacing wire into the RV. The arterial and venous sheaths were sutured in place and the areas were dressed sterilely. Patient was also placed on propofol drip to maintain sedation when she initially arrived in the [facility]. She was therefore transported to the ICU for further workup and management with the following medications: Dopamine drip, norepinephrine drip, propofol drip, normal saline IV fluids, Integrilin drip (for 18 hours), loading dose of clopidogrel 600 mg to be given via the G-tube once placed. Allergies Allergy/AdvReac Type Severity Reaction Status Date / Time No Known Drug Allergies Allergy Verified 01/29/25 13:59 Home Medications Medication Instructions Recorded Confirmed Type biotin 1 mg capsule 1 mg PO QDL 11/18/18 06/05/25 History coenzyme Q10 100 mg capsule 100 mg PO QAM 11/18/18 06/05/25 History (CoQ-10) omega 3 350 mg-dha 235 mg-epa 90 1 cap PO .EVERY 14 DAYS 11/18/18 06/05/25 History mg-fish oil 597 mg capsule,delay rel ([place]-3) multivitamin-ferrous 1 tab PO WK 11/24/18 06/05/25 History fumarate-folic acid 18 mg-400 mcg tablet (Daily Multivitamin with Iron) alendronate 70 mg tablet 70 mg PO Q7D 12/30/19 06/05/25 History aspirin 81 mg tablet,delayed 81 mg PO QAM 12/30/19 06/05/25 History release metronidazole 0.75 % topical cream 1 applic topical DAILY 01/01/23 06/05/25 History cholecalciferol (vitamin D3) 125 2,000 unit PO QDL 04/29/23 06/05/25 History mcg (5,000 unit) tablet (Vitamin D3) cyanocobalamin (vitamin B-12) 2,000 mcg sublingual QDL 04/29/23 06/05/25 History 5,000 mcg/mL sublingual drops (Vitamin B-12) nitroglycerin 0.4 mg sublingual 0.4 mg sublingual Q5M PRN chest 01/14/24 06/05/25 Rx tablet pain #25 tabs ezetimibe 10 mg tablet 10 mg PO QAM 06/03/25 06/05/25 History potassium chloride 10 mEq 10 meq PO BIDM 06/03/25 06/05/25 History tablet,extended release rosuvastatin 40 mg tablet 40 mg PO QDL 06/03/25 06/05/25 History Patient History Medical History Follow-up of acute inferior myocardial infarction Dysphagia Anemia Cardiogenic shock Acute hypotension Chest pain Acute HI Encounter for pre-operative examination Osteopenia Surgical History History of lumpectomy of right breast History of dilatation and curettage History of hysterectomy VAGINAL History of colonoscopy History of cataract surgery BILATERAL History of coronary artery bypass graft X2 VESSELS (22 YEARS AGO) History of cardiac cath NO STENTS (PRIOR TO CABG 22 YEARS AGO) Family History Mother Family hx of colon cancer Social History Smoking Status: Never smoker Second Hand Exposure: No; Do You Dip or Chew Tobacco: No; Hx Alcohol Use: No Hx Substance Use: No Preferred Language: Lao Communication Ability: Effective 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 Do not appreciate crackles or wheezing. Cardiovascular: Regular rate and rhythm. Neurologic: Sedated. Spontaneously moves all 4 extremities. Results & Data Vital Signs (Past 12 Hours) Vital Signs Temp Pulse Resp BP Pulse Ox O2 Del Method FiO2 06/05/25 15:58 16 06/05/25 15:35 104 H 24 94 40 06/05/25 13:36 64 24 100 100 06/05/25 13:12 82 17 125/82 83 L 06/05/25 13:03 120 H 27 H 06/05/25 12:57 29 L 18 98 06/05/25 12:53 53 L 06/05/25 12:52 67/39 L 06/05/25 12:48 0 L 19 94 06/05/25 12:44 66/46 L 06/05/25 12:41 44 L 06/05/25 12:39 46 L 21 06/05/25 12:36 56/39 L 06/05/25 12:21 36.3 C L 06/05/25 12:13 43 L 16 117/65 96 Room Air PG Care Time/CCT Total # of Minutes Spent Total Time Spent with Patient: Total time spent is greater than 50% in coordination of care (as documented) at patient's floor/unit and/or counseling patient: 100 minutes of critical care time was spent in the initial evaluation of this patient, review of the records including prior catheterization films, recent admission notes, discussion with the patient initially and then further discussion with her after intubation, discussion with the emergency department and [facility] team's, formulation and implementation of a plan of care, and all associated documentation. This time is exclusive of time spent for the procedure. Coding Level of Care Code 47533 CRITICAL CARE 1ST 30-74M Diagnoses Syncope and collapse R55 ST elevation myocardial infarction involving right coronary artery I21.11 Involved coronary artery: right coronary artery Coronary artery disease involving nome coronary artery of nome heart with angina pectoris I25.119 Coronary Disease-Associated Artery/Lesion type: nome artery [place] vs. transplanted heart: nome heart Associated angina: with unspecified form of angina Hyperlipidemia E78.5 Hypertension I10 Cardiogenic shock R57.0 Time Spent (min) 100 (2) ST elevation (STEMI) myocardial infarction Involved coronary artery: right coronary artery Qualified Code(s): I21.11 - ST elevation (STEMI) myocardial infarction involving right coronary artery (3) CAD (coronary artery disease) Coronary Disease-Associated Artery/Lesion type: nome artery [place] vs. transplanted heart: nome heart Associated angina: with unspecified form of angina Qualified Code(s): I25.119 - Atherosclerotic heart disease of nome coronary artery with unspecified angina pectoris
--- NOTE | 2025-06-05 17:26 | History & Physical Report ---
Date of Service June 05, 2025 Assessment & Plan (1) Acute ST elevation myocardial infarction (STEMI) of inferior wall: Plan: To address #1, patient underwent emergent cardiac catheterization (06/05/2025, 1:04pm, [facility] Interventional CARDS Dr. Amari Valles) with successful deployment of "2 overlapping drug-eluting stents in the mid and distal RCA covering the previous stent which seemed to harbor thrombus after the angioplasty portion of the procedure." Patient subsequently was loaded with plavix 600mg PO x 1 dose (06/05/2025, 2:54pm) and will start plavix 75mg PO daily (06/06/2025, 9:00am) and continue with her home-scheduled ASA 81mg PO daily (06/06/2025, 9:00am); patient will then continue with both plavix 75mg PO daily and ASA 81mg PO daily for the rest of her life. Patient will also continue with her home-scheduled, high intensity dose rosuvastatin 40mg PO daily and ezetimibe 10mg PO daily. Patient was also started on integrilin 20mg in 6.8 mL IV x 1 dose (first bolus administered on 06/05/2025, 3:38pm), followed by integrilin 20mg in 6.8 mL IV x 1 dose (second bolus administered on 06/05/2025, 3:39pm), followed by integrilin infusion @ 2.06 ug/kg/min (06/05/2025, 6:06pm). Of final note, patient is being held OFF her home-scheduled metoprolol succinate 12.5mg PO qhs given potential for this medication to cause further bradycardia and/or hypotension. Patient is also not being started on either SHER inhibitor and/or ARB given the potential for either medication to cause further hypotension and/or acute renal injury/failure. cf., admission creatinine 1.19 mg/dL, GFR 44.8 mL/min (06/05/2025, 12:27pm). Await TTE to "reevaluate EF and wall motion" (as per [facility] Interventional CARDS Dr. Amari Valles) on 06/05/2025. (2) Cardiogenic shock: Plan: To address #2, patient was started on dual pressor support utilizing norepinephrine 4mg IV x 1 dose (06/05/2025, 2:50pm), followed by norepinephrine infusion @ 0.2ug/kg/min (06/05/2025, 4:08pm) and dopamine infusion @ 7.5ug/kg/min (06/05/2025, 3:30pm), as well as 1 liter of 0.9% NS @ 75 mL/hr (06/05/2025, 4:26pm), all to maintain MAP > 65 mm Hg, and to "Gradually wean these down. Since we were relatively quick in getting reperfusion I am hopeful that she will be able to maintain blood pressure without vasopressors by tomorrow." (as per [facility] Interventional CARDS Dr. Amari Valles) on 06/05/2025. In addition, patient was also loaded with anti-arrhythmic agent amiodarone 300mg IV x 1 dose (06/05/2025, 3:37pm), followed by amiodarone 150mg IV x 1 dose @ 600 mL/hr (06/05/2025, 4:09pm), followed by amiodarone infusion @ 1mg/min (06/05/2025, 4:27pm), to prophylax against potential ventricular arrhythmias that may arise post-cardiac catheterization in this patient with recurrent acute inferior wall STEMI and cardiogenic shock. (3) Symptomatic bradycardia: Plan: To address #3, patient was continued on cafeteria monitor in ICU bed #E109-1 on admission date 06/05/2025. Continue transvenous PPM in situ as needed, as recommended by [facility] Interventional CARDS Dr. Amari Valles, on 06/05/2025, and who also recommends "that as we titrate down her vasopressor support we keep the transvenous pacemaker in place as she may become profoundly bradycardic without dopamine and norepinephrine. Then, we could start to titrate down the pacer to see if she can sustain a sinus rhythm long-term. She has had more than 1 myocardial infarction in the RCA distribution and I am concerned that she will eventually require permanent pacemaker particularly for us to optimize her medical therapy." Admission and Anticipated Discharge Date Admission Date: June 05, 2025 History of Present Illness Chief Complaint: "I was in the laundry room at home, cleaning the [employer] feeder that my Eran brought into the house from our backyard today (06/05/2025, 11:15pm), and all of a sudden, I felt very weak and sweaty all over my body. I didn't have any chest pain at all. I did not feel short of breath at all. No coughing or wheezing. No dizziness. No passing out. Just very weak and very sweaty. I didn't feel nauseated and no vomiting or belly ache. My gave me a baby aspirin and one nitroglycerin under the tongue (06/05/2025, 11:30am) and then he drove me over to the ER [facility] @ [facility]. We got here at noon (06/05/2025, 12:00pm). I didn't feel so weak or sweaty in the ER, so I think the aspirin and nitroglycerin helped me out a bit." Primary Care Provider: Nitish Ryan Jr, MD, [facility] 84 years old female with PMH of FULL CODE @ home, overweight with BMI 29.4 (height 157.5 cm, weight 72.9 kg), osteoarthritis/osteoporosis s/p right total hip arthroplasty (12/23/2018, 10:31am, [facility] Orthopedic Surgeon Dr. Amari Robertson), HTN, and CAD s/p 2 vessel CABG (HANKS to LAD; SVG to LAD)(1995, [facility], Cardio-Thoracic Surgeon Dr. Da Cortez, s/p inferior wall STEMI (07/30/2022, 1:18am, cardiac catheterization, [facility] Interventional CARDS Dr. Amari Valles): (A) HANKS to LAD with findings of small caliber and atretic with distal anast omosis on the LAD; (B) SVG to diagonal/ramus with findings of large caliber and widely patent graft with distal anastomosis on the diagonal/ramus; (C) Mid-RCA with 100% acute thrombotic stenosis, followed by PCI to RCA with successful deployment of 3.0 x 12 mm Gilberto drug-eluting stent in mid-RCA lesion with 0% post residual stenosis post PCI, JOAN-3 flow post PCI, no evidence of dissection or perforation post PCI, mild residual stenosis in the mid to proximal RCA just prior to the stent, distally the vessel is seen to bifurcate into a large PDA and large branching postero-lateral with no more than mild disease distally. (D) This cardiac catheterization was complicated by: (i) cardiogenic shock requiring phenylephrine bolus and dopamine drip, (ii) intermittent transvenous pacing, (iii) intra-aortic balloon pump counterpulsation, (iv) acute hypoxic respiratory failure requiring intubation (07/30/2022), extubation (08/01/2022), (v) aspiration pneumonia of LLL with development of LLL effusion (as noted on 07/31/2022, 8:59am portable CXR and on 08/01/2022, 7:00am portable CXR taken post-cardiac catheterization, and NOT seen on 07/30/2022, 4:29am portable CXR taken pre-cardiac catheterization). Patient was subsequently discharged to [facility] [place] on 08/06/2025 for acute rehab, followed by discharge back to her home on 08/12/2022. Patient was subsequently admitted to [facility] on 06/03/2025 with complaints of feeling woozy, lightheaded, and profuse diaphoresis for 30 minutes at home at rest while watching TV in her living room, followed by left inframammary pain for 30 minutes at home at rest while watching TV in her living room on 06/03/2025, followed by patient taking ASA 81mg PO daily x 1 dose at her home on 06/03/2025, prior to coming to [facility] ER. Patient was subsequently admitted to the inpatient hospitalist service @ [facility] on 06/03/2025 with the following diagnoses: (1) Non-ST elevation OK (NSTEMI): cf., Troponin-I #1 56.7 pg/mL (06/03/2025, 7:17pm). cf., Troponin-I #2 115.9 pg/mL (06/03/2025, 9:09pm). cf., Troponin-I #3 199.6 pg/mL (06/03/2025, 11:53pm). cf., Troponin-I #4 433.7 pg/mL (06/04/2025, 5:26am). cf., Troponin-I #5 357.2 pg/mL (06/04/2025, 11:13am). cf., Troponin-I old 21.1 pg/mL (07/30/2022, 1:12am)(cardiac catheterization on 07/30/2022, 1:18am, [facility] Interventional CARDS Dr. Amari Valles). cf., Troponin-I old 982.3 pg/mL (08/01/2022, 1:07pm)(post-cardiac catheterization). cf., Troponin-I old 787.5 pg/mL (08/01/2022, 5:02pm)(post-cardiac catheterization. Of note, patient did NOT have an acute NSTEMI during this current hospitalization (06/03/2025 - 06/05/2025) given the absence of wall motion abnormalities (cf., 06/04/2025, 6:16am TTE, CARDS Dr. Jakub Cruz). Of note, patient had no arrhythmias noted on telemetry while in [facility] from admission date 06/03/2025 through discharge date 06/05/2025. Of note, patient did not require cardiac catheterization, as per CARDS Dr. Jakub Cruz on 06/04/2025. Of note, patient had an: Acute type II NSTEMI, which in turn, was due to demand ischemia, which in turn, was due to: (A) progressive worsening in patient's chronic LV diastolic CHF from 11/25/2018 dobutamine stress ECHO (which demonstrated grade I LV diastolic dysfunction, as per CARDS Dr. Nitish Ryan) to 06/04/2025, 6:16am TTE (which demonstrated grade II LV diastolic dysfunction, as per CARDS Dr. Jakub Cruz). (B) RV systolic CHF (as noted on 06/04/2025, 6:16am TTE, CARDS Dr. Jakub Cruz). Of final note, etiology of (A) progressively worsening LV diastolic CHF and (B) now noted RV systolic CHF was attributed to OLD AGE of 84 years, and NOT to acute type I NSTEMI. (2) CAD, s/p 2 vessel CABG (HANKS to LAD; SVG to LAD)(1995, [facility], Cardio-Thoracic Surgeon Dr. Da Cortez), s/p acute inferior wall STEMI (07/30/2022, 1:18am, [facility] Interventional CARDS Dr. Amari Valles). s/p 2 vessel CABG (HANKS to LAD; SVG to LAD)(1995, [facility], Cardio-Thoracic Surgeon Dr. Da Cortez), followed by CARDS Dr. Nitish Ryan for 30+ years. s/p acute inferior wall STEMI (07/30/2022, 1:18am, [facility] Interventional CARDS Dr. Amari Valles, s/p successful deployment of 3.0 x 12 mm Gilberto drug-eluting stent in mid-RCA lesion with 0% post residual stenosis post PCI). Patient received secondary prophylaxis against CAD utilizing ASA 81mg PO daily, zetia 10mg PO qam, and rosuvastatin 40mg PO daily while in [facility] from admission date 06/03/2025 through discharge date 06/05/2025. Patient will continue this same regimen on hospital discharge back to her home on 06/05/2025. (3) Hypertension: Well-controlled with BP 146/76 (06/04/2025, 6:55pm) and discharge BP 129/67 (06/05/2025, 8:01am) on no anti-HTN agents while in [facility] from admission date 06/03/2025 through discharge date 06/05/2025. Patient was advised NOT to resume her home-scheduled metoprolol succinate 12.5mg PO qhs on hospital discharge back to her home on 06/05/2025, due to persistent bradycardia with HR 52 bpm (06/04/2025, 11:47am), bhargav HR 48 bpm (06/04/2025, 10:15pm), and discharge HR 56 bpm (06/05/2025, 8:01am), given the potential for her home- scheduled metoprolol succinate 12.5mg PO qhs to cause further bradycardia, as per CARDS Dr. Bran Field. (4) Chronic diastolic CHF (congestive heart failure): Past medical history of chronic diastolic CHF with preserved LVEF and grade I LV diastolic dysfunction as per patient's CARDS Dr. Nitish Ryan, who wrote on 12/30/2019, 2:32pm CARDS Clinic visit: "Dobutamine stress echocardiogram November 25, 2018 negative for evidence of myocardial ischemia by both ECG and echo criteria at 102% maximum predicted heart rate. Resting echocardiogram with normal biventricular systolic function, grade 1 LV diastolic dysfunction, normal chamber dimensions, trace aortic regurgitation, mild mitral regurgitation, [id number] tricuspid regurgitation, and mildly elevated estimated right ventricular systolic pressure. The test was ordered as preoperative cardiovascular evaluation before undergoing a right total hip arthroplasty (12/23/2018, 8:50am, [facility] Orthopedic Surgeon Dr. Amari Robertson)." cf., TTE (06/04/2025, 6:16am): 1. LVEF 60-65%. No regional wall motion abnormalities. No LVH. Grade II LV diastolic dysfunction. 2. Normal RV size with mildly reduced systolic function. 3. Severe LA dilation. 4. MIld-moderate MR. 5. Top normal estimated RVSP. 6. No prior study for comparison. (as per CARDS Dr. Jakub Cruz). Hence, I surmised that patient's chronic LV diastolic CHF has progressively worsened from 11/25/2018 dobutamine stress ECHO to 06/04/2025, 6:16am TTE. In addition, patient appears to have developed RV systolic CHF (as noted on 06/04/2025, 6:16am TTE, CARDS Dr. Jakub Cruz). Etiology of progressively worsening LV diastolic CHF and now noted RV systolic CHF is attributed to OLD AGE of 84 years, and NOT to any acute (N)STEMI. In addition, patient had no complaints of paroxysmal nocturnal dyspnea, orthopnea, platypnea, or weight gain, to suggest an acute exacerbation of chronic LV diastolic CHF or acute RV systolic CHF while in [facility] from admission date 06/03/2025 through discharge date 06/05/2025. Hence, patient did not / does not require diuresis with lasix or torsemide while in [facility] from admission date 06/03/2025 through discharge date 06/05/2025. Instead, patient received a heart healthy diet, daily weights, and strict I/O while in [facility] from admission date 06/03/2025 through discharge date 06/05/2025. Patient will continue to adhere to a heart healthy diet, daily weights, and strict I/O on hospital discharge back to her home on 06/05/2025. Patient was advised NOT to resume her home-scheduled metoprolol succinate 12.5mg PO qhs on hospital discharge back to her home on 06/05/2025, due to persistent bradycardia with HR 52 bpm (06/04/2025, 11:47am), bhargav HR 48 bpm (06/04/2025, 10:15pm), and discharge HR 56 bpm (06/05/2025, 8:01am), given the potential for her home-scheduled metoprolol succinate 12.5mg PO qhs to cause further bradycardia, as per CARDS Dr. Bran Field. Patient subsequently walked in the hallway of [facility] well and without any complaints on 06/05/2025 am, and was subsequently discharged back to her home on 06/05/2025, 10:13am. Patient subsequently arrived home and felt well. Patient subsequently reported: "I was in the laundry room at home, cleaning the [employer] feeder that my Eran brought into the house from our backyard today (06/05/2025, 11:15pm), and all of a sudden, I felt very weak and sweaty all over my body. I didn't have any chest pain at all. I did not feel short of breath at all. No coughing or wheezing. No dizziness. No passing out. Just very weak and very sweaty. I didn't feel nauseated and no vomiting or belly ache. My gave me a baby aspirin and one nitroglycerin under the tongue (06/05/2025, 11:30am) and then he drove me over to the ER here @ [facility]. We got here at noon (06/05/2025, 12:00pm). I didn't feel so weak or sweaty in the ER, so I think the aspirin and nitroglycerin helped me out a bit." Patient denied antecedent/coincident fevers, chills, cough, wheeze, sore throat, hemoptysis, shortness of breath, dyspnea on exertion, chest pains, palpitations, pleurisy, nausea, vomiting, diarrhea, abdominal pain, pelvic pain, hematemesis, hematochezia, melena, hematuria, dysuria, frequency, urgency, headaches, dizziness, lightheadedness, visual changes, hearing changes, falls, syncope, trauma, travel history, sick contacts, or food/drug ingestions novel or new. All other review of systems are reported as negative by the patient on admission date 06/05/2025. In [facility] ER, patient was afebrile @ 36.3 degrees Celsius (06/05/2025, 12:21pm), HR 43, RR 16, O2 sat 96% on room air, and BP 117/65 (06/05/2025, 12:13pm). cf., repeat BP 56/39 (06/05/2025, 12:36pm). Exam was noted for an elderly female who appeared run-down, worn-out, and diaphoretic, with a clear and non-tender chest. Labs in [facility] ER included: Troponin-I #1 140.8 pg/mL (06/05/2025, 12:27pm). WBC 5.74, N46 L39 M11 E3 B1, Hb 13.7, MCV 89.2, MCHC 32.8, platelet 184 (06/05/2025, 12:27pm). INR 1.0 (06/05/2025, 12:27pm). Na 140, K 4.5, CO2 26, BUN 19, creatinine 1.19, GFR 44.8, glucose 120, Ca 9.1, Mg 2.1, AST 27, ALT 27, ALK PHOS 36, TBili 1.3, albumin 4.0 (06/05/2025, 12:27pm) TSH 5.936 uIU/mL (06/05/2025, 12:27pm). Free T4 0.71 ng/dL (06/05/2025, 12:27pm). MRSA nares PCR (06/05/2025, 5:20pm). Additional testing in [facility] ER included: Portable CXR (06/05/2025, 1:11pm): Cardiomegaly with pulmonary vascular congestion. No infiltrate, effusion, or pneumothorax (by my review). EKG #1 (06/05/2025, 12:23pm): sinus bradycardia @ 45, MS 176, QTC 442, 2mm ST elevation in III; 0.5mm ST elevation in aVF; 1mm ST depression in I, aVL; 1.5mm ST depression in V2; TWI in V3, V4, V5, V6; no q waves (by my review). EKG #2 (06/05/2025, 12:29pm): sinus bradycardia @ 51, MS 196, QTC 451, 5mm ST elevation in III; 4mm ST elevation in aVF; 2mm ST elevation in II; 1mm ST depression in aVL; 5mm ST depression in V2; (by my review). 1mm ST elevations in V3, V4, V5, V6; 2mm ST depression in I; no q waves EKG #3 (06/05/2025, 2:00pm): normal sinus @ 80, MS 132, QTC 422, no ST elevations; 1mm ST depression in V5, (by my review). no q waves Patient received ASA 243mg PO x 1 dose (06/05/2025, 12:40pm) in [facility] ER. Patient was subsequently re-admitted to the inpatient hospitalist service @ [facility] on 06/05/2025 with the following diagnoses: 1. Acute inferior wall STEMI. 2. Cardiogenic shock with admission BP 56/39 (06/05/2025, 12:36pm). 3. Symptomatic bradycardia with admission HR 43 bpm (06/05/2025, 12:13pm), causing near syncope/collapse. To address #1, patient underwent emergent cardiac catheterization (06/05/2025, 1:04pm, [facility] Interventional CARDS Dr. Amari Valles) with successful deployment of "2 overlapping drug-eluting stents in the mid and distal RCA covering the previous stent which seemed to harbor thrombus after the angioplasty portion of the procedure." Patient subsequently was loaded with plavix 600mg PO x 1 dose (06/05/2025, 2:54pm) and will start plavix 75mg PO daily (06/06/2025, 9:00am) and continue with her home-scheduled ASA 81mg PO daily (06/06/2025, 9:00am); patient will then continue with both plavix 75mg PO daily and ASA 81mg PO daily for the rest of her life. Patient will also continue with her home-scheduled, high intensity dose rosuvastatin 40mg PO daily and ezetimibe 10mg PO daily. Patient was also started on integrilin 20mg in 6.8 mL IV x 1 dose (first bolus administered on 06/05/2025, 3:38pm), followed by integrilin 20mg in 6.8 mL IV x 1 dose (second bolus administered on 06/05/2025, 3:39pm), followed by integrilin infusion @ 2.06 ug/kg/min (06/05/2025, 6:06pm). Of final note, patient is being held OFF her home-scheduled metoprolol succinate 12.5mg PO qhs given potential for this medication to cause further bradycardia and/or hypotension. Patient is also not being started on either SHER inhibitor and/or ARB given the potential for either medication to cause further hypotension and/or acute renal injury/failure. cf., admission creatinine 1.19 mg/dL, GFR 44.8 mL/min (06/05/2025, 12:27pm). Await TTE to "reevaluate EF and wall motion" (as per [facility] Interventional CARDS Dr. Amari Valles) on 06/05/2025. To address #2, patient was started on dual pressor support utilizing norepinephrine 4mg IV x 1 dose (06/05/2025, 2:50pm), followed by norepinephrine infusion @ 0.2ug/kg/min (06/05/2025, 4:08pm) and dopamine infusion @ 7.5ug/kg/ min (06/05/2025, 3:30pm), as well as 1 liter of 0.9% NS @ 75 mL/hr (06/05/2025, 4:26pm), all to maintain MAP > 65 mm Hg, and to "Gradually wean these down. Since we were relatively quick in getting reperfusion I am hopeful that she will be able to maintain blood pressure without vasopressors by tomorrow." (as per [facility] Interventional CARDS Dr. Amari Valles) on 06/05/2025. In addition, patient was also loaded with anti-arrhythmic agent amiodarone 300mg IV x 1 dose (06/05/2025, 3:37pm), followed by amiodarone 150mg IV x 1 dose @ 600 mL/hr (06/05/2025, 4:09pm), followed by amiodarone infusion @ 1mg/min (06/05/2025, 4:27pm), to prophylax against potential ventricular arrhythmias that may arise post-cardiac catheterization in this patient with recurrent acute inferior wall STEMI and cardiogenic shock. To address #3, patient was continued on cafeteria monitor in ICU bed #E109-1 on admission date 06/05/2025. Continue transvenous PPM in situ as needed, as recommended by [facility] Interventional CARDS Dr. Amari Valles, on 06/05/2025, and who also recommends "that as we titrate down her vasopressor support we keep the transvenous pacemaker in place as she may become profoundly bradycardic without dopamine and norepinephrine. Then, we could start to titrate down the pacer to see if she can sustain a sinus rhythm long-term. She has had more than 1 myocardial infarction in the RCA distribution and I am concerned that she will eventually require permanent pacemaker particularly for us to optimize her medical therapy." Allergies Allergy/AdvReac Type Severity Reaction Status Date / Time No Known Drug Allergies Allergy Verified 01/29/25 13:59 Home Medications Medication Instructions Recorded Confirmed Type biotin 1 mg capsule 1 mg PO QDL 11/18/18 06/05/25 History coenzyme Q10 100 mg capsule 100 mg PO QAM 11/18/18 06/05/25 History (CoQ-10) omega 3 350 mg-dha 235 mg-epa 90 1 cap PO .EVERY 14 DAYS 11/18/18 06/05/25 History mg-fish oil 597 mg capsule,delay rel (Minto-3) multivitamin-ferrous 1 tab PO WK 11/24/18 06/05/25 History fumarate-folic acid 18 mg-400 mcg tablet (Daily Multivitamin with Iron) alendronate 70 mg tablet 70 mg PO Q7D 12/30/19 06/05/25 History aspirin 81 mg tablet,delayed 81 mg PO QAM 12/30/19 06/05/25 History release metronidazole 0.75 % topical cream 1 applic topical DAILY 01/01/23 06/05/25 History cholecalciferol (vitamin D3) 125 2,000 unit PO QDL 04/29/23 06/05/25 History mcg (5,000 unit) tablet (Vitamin D3) cyanocobalamin (vitamin B-12) 2,000 mcg sublingual QDL 04/29/23 06/05/25 History 5,000 mcg/mL sublingual drops (Vitamin B-12) nitroglycerin 0.4 mg sublingual 0.4 mg sublingual Q5M PRN chest 01/14/24 06/05/25 Rx tablet pain #25 tabs ezetimibe 10 mg tablet 10 mg PO QAM 06/03/25 06/05/25 History potassium chloride 10 mEq 10 meq PO BIDM 06/03/25 06/05/25 History tablet,extended release rosuvastatin 40 mg tablet 40 mg PO QDL 06/03/25 06/05/25 History Past Med/Surg History Problem List Symptomatic bradycardia Cardiogenic shock Acute ST elevation myocardial infarction (STEMI) of inferior wall Complete heart block, transient Syncope and collapse (Acute) Endotracheally intubated (Acute) ST elevation (STEMI) myocardial infarction (Acute) Chronic diastolic CHF (congestive heart failure) Near syncope Non-ST elevation OK (NSTEMI) (Acute) Chest pain (Acute) Elevated glucose Antiplatelet or antithrombotic long-term use CAD (coronary artery disease) Hyperlipidemia Hypertension Presence of drug-eluting stent in right coronary artery History of acute inferior wall OK History of right hip replacement Medical History Follow-up of acute inferior myocardial infarction Dysphagia Anemia Cardiogenic shock Acute hypotension Chest pain Acute OK Encounter for pre-operative examination Osteopenia Surgical History History of lumpectomy of right breast History of dilatation and curettage History of hysterectomy VAGINAL History of colonoscopy History of cataract surgery BILATERAL History of coronary artery bypass graft X2 VESSELS (22 YEARS AGO) History of cardiac cath NO STENTS (PRIOR TO CABG 22 YEARS AGO) Family History (Updated 06/05/25 @ 18:49 by Mario Taveras MD, PhD) Mother , at 88 years of age from natural causes. Family hx of colon cancer Father , at 68 years of age from COPD due to underlying chronic tobacco abuse. No problems noted. Social History (Updated 06/05/25 @ 18:55 by Mario Taveras MD, PhD) Smoking Status: Never smoker Second Hand Exposure: Yes; Do You Dip or Chew Tobacco: No; Hx Alcohol Use: No Hx Substance Use: No Preferred Language: Romanian Communication Ability: Effective Waste Collection Driver Required: No Beliefs That Will Affect Care: None marital status: marital status details: 1st marriage,10y;;2sons( 58y;61y)well;1daughter(63y) ovarian CA. Current Living Situation: Spouse Current Living Situation Comment: 2nd marriage, 38y; happily ; no children living/. current occupational status: retired current occupation: Retired How many Children do You have: 2 How many Children do You have Comment: 2sons(58y,lives in [place];61y, lives in [place], [place], 4 adopted Hebrew kids)(see below): other: 17y gabriella steals;16y gabriella large calves;14y son cleftpalate;9y daug hiatalherni Feels Safe at Home: Declines to Answer Assistive Devices: None Review of Systems Constitutional: As above in the HPI. Physical Exam Constitutional: General appearance: Run-down, worn-out, diaphoretic. Wide awake and alert. Not confused, lethargic, or obtunded. Speaks in complete, fluent, and articulate sentences without pause, interruption, cough, or wheeze. HEENT: Normocephalic; atraumatic. EOMI. PERRL No rhinorrhea. No pharyngeal discharge. Neck: Supple, no stridor, bruit, goiter, JVD, or HJR. Lymph: No lymphadenopathy. Chest: Symmetric rise and fall with respirations. Non-tender to palpation. Lungs: Clear to auscultation and percussion. No audible wheeze, pectoriloquy, increase in tactile fremitus, or flatness/dullness to percussion at the bases. Heart: RRR, S1S2, no S3 or S4. Grade II/ early systolic murmur @ LLSB without radiation to the carotids, axilla, or back, and which remains invariant in regards to the respiratory cycle. Abd: Soft, non-tender, non-distended. No rebound, guarding, Mota's sign, or organomegaly. Bowel sounds auscultated in all 4 quadrants. Ext: No clubbing, cyanosis, or edema. 2+ pedal pulses bilaterally. Skin: No decubitus ulcer, exanthem, or enanthem. Neuro: Alert and oriented in regards to person, place, time, or situation. 5/5 motor strength in all 4 extremities, both proximally and distally. Urology: No card catheter. No urethral discharge. Psych: No suicidal ideation. No homicidal ideation. Results & Data Results & Data Vital Signs (Past 12 Hours) Vital Signs Temp Pulse Resp BP Pulse Ox O2 Del Method FiO2 06/05/25 15:58 16 06/05/25 15:35 104 H 24 94 40 06/05/25 13:36 64 24 100 100 06/05/25 13:12 82 17 125/82 83 L 06/05/25 13:03 120 H 27 H 06/05/25 12:57 29 L 18 98 06/05/25 12:53 53 L 06/05/25 12:52 67/39 L 06/05/25 12:48 0 L 19 94 06/05/25 12:44 66/46 L 06/05/25 12:41 44 L 06/05/25 12:39 46 L 21 06/05/25 12:36 56/39 L 06/05/25 12:21 36.3 C L 06/05/25 12:13 43 L 16 117/65 96 Room Air Laboratory Results As above in the HPI. Diagnostic Findings As above in the HPI. Medications Administered As above in the HPI. Code Status & VTE Plan VTE Prophylaxis Plan VTE Prophylaxis will be ordered: Yes PG Care Time/CCT Total # of Minutes Spent Total Time Spent with Patient: Total time spent is greater than 50% in coordination of care (as documented) at patient's floor/unit and/or counseling patient: Coding Level of Care Code 75369 INT INP/OBS CARE 3/75MIN Diagnoses Acute ST elevation myocardial infarction (STEMI) of inferior wall I21.19 Cardiogenic shock R57.0 Symptomatic bradycardia R00.1
[2025-06-05 17:30] LABS: Hematocrit (blood only) 42.6 % (37.0-47.0); Hemoglobin 13.6 g/dl (12.0-16.0); Mean Corpuscular Hemoglobin 29.5 pg (25.0-34.0); Mean Corpuscular Volume 92.4 fL (80.0-100.0); Platelet Count 227 K/uL (130-400); RDW Standard Deviation 50.8 fL (36.4-46.3); Red Blood Count 4.61 M/uL (4.20-5.40); White Blood Count 20.37 K/ul (4.8-10.8)
[2025-06-05 17:32] LABS: Immature Granulocytes # (auto) 0.16 K/uL (0.01-0.20); Immature Granulocytes % (auto) 0.8 %
[2025-06-05] MEDS: EPTIFIBATIDE 75 MG/100 ML VIAL IV SCH (18:06)
[2025-06-05] MEDS: AMIODARONE IV BOLUS & DRIP IV STA (18:15)
--- NOTE | 2025-06-05 18:19 | XRay Report ---
EXAM: XR chest 1V portable CLINICAL HISTORY: intubation TECHNIQUE: An X-ray image of the chest is obtained in AP projection. COMPARISON: 06/03/2025. FINDINGS: The ET tube is away from the estee about 2.8 cm. Nasogastric tube seen passing below the left hemidiaphragm with its tip not within the [id number] Pulmonary Parenchyma: Lungs are clear bilaterally. No evidence of consolidation, collapse, or focal opacities. No pulmonary nodules are identified. Blunted left costophrenic angle suggestive of pleural effusion. Heart and Mediastinum: Sterneotomy wires noted. Cardiomegaly noted with congestion in both dilma. No hilar or mediastinal lymphadenopathy. Bony Thorax: Bony thorax appears intact without fractures or deformities. Soft Tissues: Soft tissues overlying the chest wall are unremarkable. IMPRESSION: 1. The ET tube is away from the estee about 2.8 cm . New finding. 2. Nasogastric tube seen passing below the left hemidiaphragm with its tip not within the [id number] 3. Mild Blunted left costophrenic angle suggestive of pleural effusion. 4. Cardiomegaly noted with congestion in both dilma. Electronically signed by Zana Larose 06-05-2025 6:19 PM
[2025-06-05] MEDS: CLOPIDOGREL BISULFATE 300 MG TAB PO STA (18:20)
[2025-06-05] MEDS: CLOPIDOGREL BISULFATE 300 MG TAB ONE (18:41)
[2025-06-05] MEDS ORDERED: ATROPINE SULFATE 0.1 MG/ML 10ML SYR IV ONE (19:28)
[2025-06-05] MEDS ORDERED: SODIUM CHLORIDE 0.9% 10ML FLUSH IV ONE (19:28)
[2025-06-05] MEDS ORDERED: SUCCINYLCHOLINE CHLORIDE 20 MG/ML 10 ML VIAL IV ONE (19:31)
[2025-06-05] MEDS ORDERED: ETOMIDATE 2 MG/ML 20 ML VIAL IV ONE (19:31)
[2025-06-05] MEDS: EZETIMIBE 10 MG TAB PO SCH (20:17)
[2025-06-05 20:39] LABS: Appearance Urine Cloudy (Clear); Bacteria Urine Automated 2+ (None Seen); Cast Urine Automated >20 /lpf (0-2); Glucose Urine UA 1+ (Negative); WBC Urine Automated 21-50 /hpf (0-5)
[2025-06-05] MEDS: AMIODARONE / D5W 360 MG/200 ML BAG IV SCH (22:35)
[2025-06-06] MEDS ORDERED: CARBOHYDRATES FOR HYPOGLYCEMIA PO PRN (00:38)
[2025-06-06] MEDS ORDERED: DEXTROSE 50% 50 ML SYRINGE IV PRN (00:38)
[2025-06-06] MEDS ORDERED: GLUCAGON FOR INJ 1 MG VIAL SQ PRN (00:38)
[2025-06-06] MEDS ORDERED: GLUCOSE 10 TAB/TUBE PO PRN (00:38)
[2025-06-06] MEDS ORDERED: GLUCOSE 40% GEL 15 GM TUBE PO PRN (00:38)
[2025-06-06] MEDS: INSULIN ASPART PER UNIT CHARGE SC SCH (01:40)
[2025-06-06 05:27] LABS: Hematocrit (blood only) 33.6 % (37.0-47.0); Hemoglobin 10.9 g/dl (12.0-16.0); Immature Granulocytes # (auto) 0.06 K/uL (0.01-0.20); Immature Granulocytes % (auto) 0.5 %; Mean Corpuscular Hemoglobin 29.0 pg (25.0-34.0); Mean Corpuscular Volume 89.4 fL (80.0-100.0); Platelet Count 182 K/uL (130-400); RDW Standard Deviation 49.8 fL (36.4-46.3); Red Blood Count 3.76 M/uL (4.20-5.40); White Blood Count 11.97 K/ul (4.8-10.8)
[2025-06-06 05:47] LABS: Alanine Aminotransferase 135.0 U/L (7-52); Albumin Globulin Ratio 1.8 (0.9-2); Alkaline Phosphatase 31.0 U/L (34-104); Anion Gap 9.0 (3-11); Bilirubin,Total 0.8 mg/dl (0.2-1.0); Blood Urea Nitrogen 25.0 mg/dl (6-23); Calcium 6.8 mg/dl (8.6-10.3); Carbon Dioxide 16.0 mmol/L (21-32); Chloride 107.0 mmol/L (98-107); Cholesterol 78.0 mg/dl (0-200); Creatinine Clr Calc Pharmacy 18.8 ml/min; Globulin 1.6 gm/dl (2.5-4.0); Glucose 160.0 mg/dl (70-99(Fasting)); HDL Cholesterol 32.0 mg/dl; Potassium 3.5 mmol/L (3.5-5.1); Sodium 132.0 mmol/L (136-145); Total Protein 4.4 gm/dl (6.0-8.3); Triglycerides 92.0 mg/dl (0-150)
[2025-06-06] MEDS: CALCIUM GLUCONATE 1,000 MG/60 ML BAG IV SCH (06:00)
[2025-06-06 06:22] LABS: iSTAT Art Bld Gas Base Excess -12.0 meg/L (-9-1.8)
[2025-06-06 07:01] LABS: INR 1.0 (0.9-1.1); Prothrombin Time 11.2 Seconds (9.0-12.0)
[2025-06-06] MEDS: CLOPIDOGREL BISULFATE 75 MG TAB PO SCH (08:32)
--- NOTE | 2025-06-06 08:34 | XRay Report ---
SINGLE VIEW CHEST CLINICAL HISTORY: Respiratory failure. FINDINGS: An AP, portable, semierect chest radiograph is compared to studies dated 06/05/2025. The exam ination is degraded by portable technique and patient rotation. The endotracheal tube, an enteric tub e, and a left subclavian central venous catheter are unchanged in position. The tip of the subclavian catheter projects over the right atrium. The patient is status post midline sternotomy. The heart is enlarged noting atherosclerotic calcification of the thoracic aorta. There is pulmonary vascular con gestion. There is mild chronic elevation of the right hemidiaphragm. Atelectasis is noted at the lung bases. There are small pleural effusions, left larger than right with dependent atelectasis. No pneu mothorax is seen. The skeletal structures are osteopenic. The bony thorax is grossly intact. IMPRESSION: 1. Stable lines and tubes. 2. Cardiomegaly with mild pulmonary vascular congestion. Radiographic follow-up to resolution is patti mmended. 2. Small pleural effusions. ACT 112: Negative or not required by law. Electronically signed by: Myles Ramirez M.D. 06/06/2025 8:32 AM
[2025-06-06] MEDS: ASPIRIN 81 MG CHEW PO SCH (08:36)
[2025-06-06] MEDS ORDERED: ASPIRIN 81 MG ECTAB PO SCH ×2 (09:00)
[2025-06-06] MEDS ORDERED: ASPIRIN/ALUM/MAGNES/CAL CARB 325 MG TAB PO SCH (09:00)
[2025-06-06] MEDS: POTASSIUM CHLORIDE 20 MEQ/15 ML UDC PO STA (09:07)
[2025-06-06] MEDS: D5W IV SCH (09:17)
[2025-06-06] MEDS: NOREPINEPHRINE IV SCH (09:17)
[2025-06-06] MEDS: MIDAZOLAM HCL 1 MG/ML 2ML VIAL IV PRN (09:50)
[2025-06-06] MEDS: ENOXAPARIN INJ 40 MG/0.4 ML SYR SQ SCH (10:07)
--- NOTE | 2025-06-06 10:30 | Cardiology Progress Note ---
Date of Service June 06, 2025 Assessment & Plan (1) Syncope and collapse: Plan: Most likely this is related to the bradycardia/transient heart block that she experiences when she has occlusion of her RCA. Currently without evidence of AV block. Baseline heart rate around 70 bpm, currently being paced at 80 bpm. This provides improved hemodynamics. (2) ST elevation (STEMI) myocardial infarction: Plan: Recurrent inferior ST elevation [place] of the RCA. Successful PCI. 2 drug-eluting stents placed in the RCA. Patient on eptifibatide infusion overnight. Currently discontinued. She will continue dual antiplatelet therapy and high- dose rosuvastatin. Beta-philip to be reinitiated based on her clinical course. (3) CAD (coronary artery disease): Plan: Severe multivessel coronary disease. Prior two-vessel CABG with HANKS to LAD and SVG to diagonal/ramus. HANKS to LAD is atretic and does not provide much flow to the LAD. Fortunately, the SVG is patent and provides significant flow to the diagonal, ramus, and LAD. The [place] circumflex and its branches are widely patent. The RCA is once again patent and is dominant providing a large PDA and a large multi branching posterolateral. Ultimately, the patient will be placed on maximum guideline directed medical therapy as tolerated. (4) Hyperlipidemia: Plan: Patient is high risk. High intensity statin therapy with rosuvastatin and Zetia. (5) Hypertension: Plan: Currently hypotensive requiring 2 vasopressors. (6) Cardiogenic shock: Plan: Maintaining adequate blood pressure on 2 vasopressors. Overall LV function appears adequate. Most likely she has some degree of RV dysfunction not well characterized on her recent echocardiogram. She may be more volume and preload dependent as a result. I increased her pacing rate and this seems to improve her hemodynamics. Hopefully will see some improvement and recovery over the next 24 hours. Admission and Anticipated Discharge Date Admission Date: June 05, 2025 Subjective Patient remains intubated and sedated. Events of yesterday reviewed. Discussion undertaken with the patient's regarding her episode yesterday and current care. Review of Systems Review of Systems: Unobtainable due to endotracheal tube Physical Exam Physical Exam: Intubated and sedated HEENT: Sclerae are anicteric. Lungs: Some coarse upper airway sounds. No expiratory wheezing. Cardiac: The rhythm was regular. S1 and S2 were normal. There are no murmurs on examination. Abdomen: The abdomen was soft and nontender. Extremities: Patient has bilateral radial pulses that are equal in intensity. There is no evidence cyanosis or clubbing. Right groin access site without hematoma or drainage. Skin: There are no rashes noted on examination today. Results & Data Vital Signs (Past 12 Hours) Vital Signs Temp Pulse Resp BP Pulse Ox O2 Del Method FiO2 06/06/25 09:01 112/48 L 06/06/25 09:00 37.1 C 74 22 06/06/25 08:57 37.1 C 73 19 98 06/06/25 08:00 92/60 L 06/06/25 07:58 95 H 22 98 30 06/06/25 07:51 Mechanical Vent 30 06/06/25 07:42 37.1 C 81 16 98 06/06/25 07:33 37.1 C 76 16 98 06/06/25 07:27 37.1 C 77 16 98 06/06/25 07:09 37.1 C 70 16 97 06/06/25 07:00 121/41 L 06/06/25 07:00 121/41 L 06/06/25 06:57 37.0 C 70 16 98 06/06/25 06:48 37.0 C 70 16 97 06/06/25 06:15 37.0 C 80 18 99 06/06/25 06:14 75/44 L 06/06/25 06:00 102/42 L 06/06/25 05:54 36.9 C 69 17 98 06/06/25 05:09 36.7 C 70 18 107/37 L 99 06/06/25 04:48 36.7 C 71 17 99 06/06/25 04:00 106/46 L 06/06/25 04:00 106/46 L 06/06/25 04:00 106/46 L 06/06/25 04:00 106/46 L 06/06/25 04:00 36.5 C 71 17 106/46 L 99 06/06/25 03:48 74 16 99 30 06/06/25 03:42 36.4 C L 76 17 99 06/06/25 03:00 104/47 L 06/06/25 02:41 30 06/06/25 02:09 36.0 C L 78 16 100 06/06/25 02:00 36.0 C L 81 17 104/50 L 100 06/06/25 01:00 35.7 C L 79 16 101/51 L 100 06/06/25 00:09 35.5 C L 80 16 101/49 L 100 06/06/25 00:00 81 06/05/25 23:36 35.3 C L 82 16 100 06/05/25 23:06 35.2 C L 83 16 100 06/05/25 22:55 80 16 100 30 Laboratory Results Abnormal Lab Results 06/05/25 06/05/25 06/05/25 12:27 12:34 16:25 WBC 5.74 20.37 H D RBC 4.62 4.61 Hgb 13.5 13.6 POC Hgb 13.9 Hct 41.2 42.6 POC Hct 41 MCV 89.2 92.4 MCH 29.2 29.5 MCHC 32.8 31.9 L RDW Std Deviation 48.9 H 50.8 H RDW Coeff of Randell 14.9 H 15.1 H Plt Count 184 227 MPV 10.4 11.3 Immature Gran % (Auto) 0.2 0.8 Neut % (Auto) 45.5 83.3 Lymph % (Auto) 39.4 12.6 [place] % (Auto) 10.8 2.3 Eos % (Auto) 3.1 0.6 Baso % (Auto) 1.0 0.4 Neut # (Auto) 2.61 16.98 H Lymph # (Auto) 2.26 2.56 [place] # (Auto) 0.62 H 0.47 Eos # (Auto) 0.18 0.12 Baso # (Auto) 0.06 0.08 Immature Gran # (Auto) 0.01 0.16 PT 10.6 INR 1.0 POC pH POC pCO2 POC pO2 POC HCO3 POC Base Excess POC ABG O2 Sat POC Sodium 141 Sodium 140 POC Potassium 4.6 Potassium 4.5 POC Chloride 104 Chloride 106 Carbon Dioxide 26 POC Total CO2 24 Anion Gap 8 POC Anion Gap 18.0 POC BUN 21 H BUN 19 Creatinine 1.19 POC Creatinine 1.3 Est Cr Clr Drug Dosing 32.3 eGFR 44.81 BUN/Creatinine Ratio 16.0 Glucose 120 H POC Glucose (other) 116 H Calcium 9.1 POC Ioniz Calcium Olvin 1.15 Phosphorus Magnesium 2.1 Total Bilirubin 1.3 H AST 27 ALT 27 Alkaline Phosphatase 36 Troponin I High Sens 140.8 H* D 3027.8 H* D Total Protein 6.4 Albumin 4.0 Globulin 2.4 L Albumin/Globulin Ratio 1.7 Triglycerides Cholesterol LDL Cholesterol, Calc VLDL Cholesterol, Calc HDL Cholesterol Cholesterol/HDL Ratio TSH 5.936 H Free T4 0.71 Urine Color Urine Appearance Urine pH Ur Specific [place] Urine Protein Urine Glucose (UA) Urine Ketones Urine Blood Urine Nitrite Urine Bilirubin Urine Urobilinogen Ur Leukocyte Esterase Urine WBC (Auto) Urine RBC (Auto) U Hyaline Cast (Auto) U Epithel Cells (Auto) Urine Bacteria (Auto) Hyaline Casts Granular Casts Urine Mucus Urine Comment Nasal Screen MRSA (PCR) Blood Type Antibody Screen 06/05/25 06/05/25 06/05/25 17:08 17:20 19:30 WBC RBC Hgb POC Hgb Hct POC Hct MCV MCH MCHC RDW Std Deviation RDW Coeff of [place] Plt Count MPV Immature Gran % (Auto) Neut % (Auto) Lymph % (Auto) [place] % (Auto) Eos % (Auto) Baso % (Auto) Neut # (Auto) Lymph # (Auto) [place] # (Auto) Eos # (Auto) Baso # (Auto) Immature Gran # (Auto) PT INR POC pH POC pCO2 POC pO2 POC HCO3 POC Base Excess POC ABG O2 Sat POC Sodium Sodium POC Potassium Potassium POC Chloride Chloride Carbon Dioxide POC Total CO2 Anion Gap POC Anion Gap POC BUN BUN Creatinine POC Creatinine Est Cr Clr Drug Dosing eGFR BUN/Creatinine Ratio Glucose POC Glucose (other) Calcium POC Ioniz Calcium [place] Phosphorus Magnesium Total Bilirubin AST ALT Alkaline Phosphatase Troponin I High Sens Total Protein Albumin Globulin Albumin/Globulin Ratio Triglycerides Cholesterol LDL Cholesterol, Calc VLDL Cholesterol, Calc HDL Cholesterol Cholesterol/HDL Ratio TSH Free T4 Urine Color Yellow Urine Appearance Cloudy A Urine pH 5.5 Ur Specific [place] 1.041 H Urine Protein 4+ H Urine Glucose (UA) 1+ H Urine Ketones Trace H Urine Blood 2+ H Urine Nitrite Negative Urine Bilirubin Negative Urine Urobilinogen Negative Ur Leukocyte Esterase Negative Urine WBC (Auto) 21-50 H Urine RBC (Auto) 11-20 H U Hyaline Cast (Auto) >20 H U Epithel Cells (Auto) 3-5 H Urine Bacteria (Auto) 2+ H Hyaline Casts Present A Granular Casts Present A Urine Mucus Present A Urine Comment Nasal Screen MRSA (PCR) Negative Blood Type O Positive Antibody Screen NEGATIVE 06/05/25 06/05/25 06/06/25 21:22 23:14 00:51 WBC RBC Hgb POC Hgb Hct POC Hct MCV MCH MCHC RDW Std Deviation RDW Coeff of Randell Plt Count MPV Immature Gran % (Auto) Neut % (Auto) Lymph % (Auto) [place] % (Auto) Eos % (Auto) Baso % (Auto) Neut # (Auto) Lymph # (Auto) [place] # (Auto) Eos # (Auto) Baso # (Auto) Immature Gran # (Auto) PT INR POC pH POC pCO2 POC pO2 POC HCO3 POC Base Excess POC ABG O2 Sat POC Sodium Sodium POC Potassium Potassium POC Chloride Chloride Carbon Dioxide POC Total CO2 Anion Gap POC Anion Gap POC BUN BUN Creatinine POC Creatinine Est Cr Clr Drug Dosing eGFR BUN/Creatinine Ratio Glucose POC Glucose (other) 251 H 202 H Calcium POC Ioniz Calcium [place] Phosphorus Magnesium Total Bilirubin AST ALT Alkaline Phosphatase Troponin I High Sens 91174.0 H* D Total Protein Albumin Globulin Albumin/Globulin Ratio Triglycerides Cholesterol LDL Cholesterol, Calc VLDL Cholesterol, Calc HDL Cholesterol Cholesterol/HDL Ratio TSH Free T4 Urine Color Urine Appearance Urine pH Ur Specific [place] Urine Protein Urine Glucose (UA) Urine Ketones Urine Blood Urine Nitrite Urine Bilirubin Urine Urobilinogen Ur Leukocyte Esterase Urine WBC (Auto) Urine RBC (Auto) U Hyaline Cast (Auto) U Epithel Cells (Auto) Urine Bacteria (Auto) Hyaline Casts Granular Casts Urine Mucus Urine Comment Nasal Screen MRSA (PCR) Blood Type Antibody Screen 06/06/25 06/06/25 06/06/25 05:11 06:11 06:22 WBC 11.97 H RBC 3.76 L Hgb 10.9 L POC Hgb 10.2 L Hct 33.6 L POC Hct 30 L MCV 89.4 MCH 29.0 MCHC 32.4 RDW Std Deviation 49.8 H RDW Coeff of Randell 15.0 H Plt Count 182 MPV 10.3 Immature Gran % (Auto) 0.5 Neut % (Auto) 71.6 Lymph % (Auto) 14.5 [place] % (Auto) 12.9 Eos % (Auto) 0.2 Baso % (Auto) 0.3 Neut # (Auto) 8.58 H Lymph # (Auto) 1.73 [place] # (Auto) 1.55 H Eos # (Auto) 0.02 Baso # (Auto) 0.03 Immature Gran # (Auto) 0.06 PT Cancelled 11.2 INR Cancelled 1.0 POC pH 7.35 POC pCO2 26 L POC pO2 94 POC HCO3 14 L POC Base Excess -12.0 L POC ABG O2 Sat 97.0 H POC Sodium 135 Sodium 132 L POC Potassium 3.4 Potassium 3.5 D POC Chloride Chloride 107 Carbon Dioxide 16 L POC Total CO2 15 L Anion Gap 9 POC Anion Gap POC BUN BUN 25 H Creatinine 2.04 H D POC Creatinine Est Cr Clr Drug Dosing 18.8 eGFR 23.47 BUN/Creatinine Ratio 12.3 Glucose 160 H POC Glucose (other) Calcium 6.8 L D POC Ioniz Calcium [place]vin Phosphorus 2.8 Magnesium Total Bilirubin 0.8 D AST 167 H ALT 135 H Alkaline Phosphatase 31 L Troponin I High Sens 07387.7 H* D Total Protein 4.4 L D Albumin 2.8 L Globulin 1.6 L Albumin/Globulin Ratio 1.8 Triglycerides 92 Cholesterol 78 LDL Cholesterol, Calc 28 VLDL Cholesterol, Calc 18 HDL Cholesterol 32 Cholesterol/HDL Ratio 2.4 TSH Free T4 Urine Color Urine Appearance Urine pH Ur Specific [place] Urine Protein Urine Glucose (UA) Urine Ketones Urine Blood Urine Nitrite Urine Bilirubin Urine Urobilinogen Ur Leukocyte Esterase Urine WBC (Auto) Urine RBC (Auto) U Hyaline Cast (Auto) U Epithel Cells (Auto) Urine Bacteria (Auto) Hyaline Casts Granular Casts Urine Mucus Urine Comment Nasal Screen MRSA (PCR) Blood Type Antibody Screen Diagnostic Findings Echocardiogram 06/05/2025 demonstrates preserved LV systolic function without significant regional wall motion abnormalities. No pericardial effusion. Right ventricle not well visualized. PG Care Time/CCT Total # of Minutes Spent Total Time Spent with Patient: Total time spent is greater than 50% in coordination of care (as documented) at patient's floor/unit and/or counseling patient: Coding Level of Care Code 98801 SUB INP/OBS CARE 3/50MIN Diagnoses Syncope and collapse R55 ST elevation myocardial infarction involving right coronary artery I21.11 Involved coronary artery: right coronary artery Coronary artery disease involving [place] coronary artery of [place] heart with angina pectoris I25.119 Coronary Disease-Associated Artery/Lesion type: [place] artery [place] vs. transplanted heart: [place] heart Associated angina: with unspecified form of angina Hyperlipidemia E78.5 Hypertension I10 Cardiogenic shock R57.0 (2) ST elevation (STEMI) myocardial infarction Involved coronary artery: right coronary artery Qualified Code(s): I21.11 - ST elevation (STEMI) myocardial infarction involving right coronary artery (3) CAD (coronary artery disease) Coronary Disease-Associated Artery/Lesion type: [place] artery [place] vs. transplanted heart: [place] heart Associated angina: with unspecified form of angina Qualified Code(s): I25.119 - Atherosclerotic heart disease of [place] coronary artery with unspecified angina pectoris
--- NOTE | 2025-06-06 10:35 | XCELERA ---
[id number] \\[email or web address]\[id number]
--- NOTE | 2025-06-06 10:45 | Critical Care Progress Note ---
Date of Service June 06, 2025 Assessment & Plan (1) ST elevation (STEMI) myocardial infarction: Plan: Reason Critically Ill: 84-year-old female in cardiogenic shock underwent successful drug-eluting stent placement PLAN: Neuro: Propofol and fentanyl to facilitate mechanical ventilation - Discontinue propofol as this is a negative inotropic effect and transition to Versed Encephalopathy - Multifactorial, would consider EEG if no change in next 24 hours Resp: Acute respiratory failure secondary to cardiogenic shock - Hopeful for spontaneous breathing trial when there is more hemodynamic stability CV: Cardiogenic shock: Right-sided heart failure - Wean dopamine Levophed as tolerated Coronary artery disease status post ST elevation RI with transient complete heart block - Drug-eluting stent to right coronary - Dual antiplatelet therapy Episode of ventricular fibrillation - Continue amiodarone infusion Bradycardia transient heart block - Continue pacemaker with backup rate this has been adjusted by cardiology: Increased rate of 80 has improved hemodynamics Fluids/Renal: Acute kidney injury - Discussed with as I anticipate kidney function will likely continue to deteriorate, they are open to renal replacement therapy should it be needed - I discussed renal replacement therapy has significant risks in the setting of significant cardiogenic shock ID: No indication for anti-infectives at this time GI/Nutrition: Transaminitis: Likely secondary to cardiogenic shock and probable congestive hepatopathy History of hyperlipidemia - Zetia 10 mg and Crestor Heme: Type and screen DVT prophylaxis: Lovenox 40 mg daily Endocrine: ICU hyperglycemia protocol Vascular access: Right groin arterial sheath, left subclavian central venous access Code Status: Full code Disposition: ICU (2) Syncope and collapse: (3) CAD (coronary artery disease): (4) Complete heart block, transient: Admission and Anticipated Discharge Date Admission Date: June 05, 2025 Supervising Physician Co-Signing Physician Notes I have personally spent 95 minutes of critical care time in the direct management of this patient. This is a life/limb threatening event. This includes time spent evaluating patient, direct bedside care, chart review, placing orders, interpretation of diagnostic studies, discussion with consultants, patient, and/or family members regarding treatment decisions, as well as other required patient management activities. This time is exclusive of all separately billable procedures, and teaching time and separate from and in addition to any other critical care service time. Subjective Attempting to decrease patient's propofol requirement, has increased vasoactive medication needs. Physical Exam Physical Exam: General: Sedated. nontoxic. Skin: Warm, dry, Head: Atraumatic Ears, nose, mouth and throat: airway obscured by endotracheal tube Cardiovascular: Normal peripheral perfusion Respiratory: Ventilator settings reviewed Gastrointestinal: Non distended Musculoskeletal: No deformity Results & Data Results & Data Vital Signs (Past 12 Hours) Vital Signs Temp Pulse Resp BP Pulse Ox O2 Del Method FiO2 06/06/25 09:01 112/48 L 06/06/25 09:00 37.1 C 74 22 06/06/25 08:57 37.1 C 73 19 98 06/06/25 08:00 92/60 L 06/06/25 07:58 95 H 22 98 30 06/06/25 07:51 Mechanical Vent 30 06/06/25 07:42 37.1 C 81 16 98 06/06/25 07:33 37.1 C 76 16 98 06/06/25 07:27 37.1 C 77 16 98 06/06/25 07:09 37.1 C 70 16 97 06/06/25 07:00 121/41 L 06/06/25 07:00 121/41 L 06/06/25 06:57 37.0 C 70 16 98 06/06/25 06:48 37.0 C 70 16 97 06/06/25 06:15 37.0 C 80 18 99 06/06/25 06:14 75/44 L 06/06/25 06:00 102/42 L 06/06/25 05:54 36.9 C 69 17 98 06/06/25 05:09 36.7 C 70 18 107/37 L 99 06/06/25 04:48 36.7 C 71 17 99 06/06/25 04:00 106/46 L 06/06/25 04:00 106/46 L 06/06/25 04:00 106/46 L 06/06/25 04:00 106/46 L 06/06/25 04:00 36.5 C 71 17 106/46 L 99 06/06/25 03:48 74 16 99 30 06/06/25 03:42 36.4 C L 76 17 99 06/06/25 03:00 104/47 L 06/06/25 02:41 30 06/06/25 02:09 36.0 C L 78 16 100 06/06/25 02:00 36.0 C L 81 17 104/50 L 100 06/06/25 01:00 35.7 C L 79 16 101/51 L 100 06/06/25 00:09 35.5 C L 80 16 101/49 L 100 06/06/25 00:00 81 06/05/25 23:36 35.3 C L 82 16 100 06/05/25 23:06 35.2 C L 83 16 100 06/05/25 22:55 80 16 100 30 Critical Care Results & Data Vital Signs (Past 12 Hours) Vital Signs Temp Pulse Resp BP Pulse Ox O2 Del Method FiO2 06/06/25 09:01 112/48 L 06/06/25 09:00 37.1 C 74 22 06/06/25 08:57 37.1 C 73 19 98 06/06/25 08:00 92/60 L 06/06/25 07:58 95 H 22 98 30 06/06/25 07:51 Mechanical Vent 30 06/06/25 07:42 37.1 C 81 16 98 06/06/25 07:33 37.1 C 76 16 98 06/06/25 07:27 37.1 C 77 16 98 06/06/25 07:09 37.1 C 70 16 97 06/06/25 07:00 121/41 L 06/06/25 07:00 121/41 L 06/06/25 06:57 37.0 C 70 16 98 06/06/25 06:48 37.0 C 70 16 97 06/06/25 06:15 37.0 C 80 18 99 06/06/25 06:14 75/44 L 06/06/25 06:00 102/42 L 06/06/25 05:54 36.9 C 69 17 98 06/06/25 05:09 36.7 C 70 18 107/37 L 99 06/06/25 04:48 36.7 C 71 17 99 06/06/25 04:00 106/46 L 06/06/25 04:00 106/46 L 06/06/25 04:00 106/46 L 06/06/25 04:00 106/46 L 06/06/25 04:00 36.5 C 71 17 106/46 L 99 06/06/25 03:48 74 16 99 30 06/06/25 03:42 36.4 C L 76 17 99 06/06/25 03:00 104/47 L 06/06/25 02:41 30 06/06/25 02:09 36.0 C L 78 16 100 06/06/25 02:00 36.0 C L 81 17 104/50 L 100 06/06/25 01:00 35.7 C L 79 16 101/51 L 100 06/06/25 00:09 35.5 C L 80 16 101/49 L 100 06/06/25 00:00 81 06/05/25 23:36 35.3 C L 82 16 100 06/05/25 23:06 35.2 C L 83 16 100 06/05/25 22:55 80 16 100 30 Lab & Micro Results (Past 24 Hours) RBC 3.76 M/uL (4.20-5.40) L 06/06/25 WBC 11.97 K/ul (4.8-10.8) H 06/06/25 Hgb 10.9 g/dl (12.0-16.0) L 06/06/25 Hct 33.6 % (37.0-47.0) L 06/06/25 MCV 89.4 fL (80.0-100.0) 06/06/25 MCH 29.0 pg (25.0-34.0) 06/06/25 MCHC 32.4 g/dL (32.0-36.0) 06/06/25 RDW Standard Deviation 49.8 fL (36.4-46.3) H 06/06/25 RDW Coefficient of Variation 15.0 % (11.5-14.5) H 06/06/25 Plt Count 182 K/uL (130-400) 06/06/25 MPV 10.3 fL (9.4-12.4) 06/06/25 Neutrophils (%) (Auto) 71.6 % 06/06/25 Lymphocytes (%) (Auto) 14.5 % 06/06/25 Monocytes # (Auto) 1.55 K/uL (0.11-0.59) H 06/06/25 Eosinophils # (Auto) 0.02 K/uL (0.00-0.50) 06/06/25 Immature Granulocyte % (Auto) 0.5 % 06/06/25 Neutrophils # (Auto) 8.58 K/uL (1.40-6.50) H 06/06/25 Lymphocytes # (Auto) 1.73 K/uL (1.20-3.40) 06/06/25 Monocytes # (Auto) 1.55 K/uL (0.11-0.59) H 06/06/25 Eosinophils # (Auto) 0.02 K/uL (0.00-0.50) 06/06/25 Basophils # (Auto) 0.03 K/uL (0.00-0.20) 06/06/25 Immature Granulocyte # (Auto) 0.06 K/uL (0.01-0.20) 5 Na 132 mmol/L (136-145) L 06/06/25 K 3.5 mmol/L (3.5-5.1) 06/06/25 Cl 107 mmol/L (98-107) 06/06/25 CO2 16 mmol/L (21-32) L 06/06/25 Anion Gap 9 (3-11) 06/06/25 BUN 25 mg/dl (6-23) H 06/06/25 Creatinine 2.04 mg/dl (0.6-1.2) H 06/06/25 BUN/Creatinine Ratio 12.3 (10-20) 06/06/25 Glu 160 mg/dl (70-99(Fasting)) H 06/06/25 Ca 6.8 mg/dl (8.6-10.3) L 06/06/25 Phosphorus Level 2.8 mg/dl (2.5-4.9) 06/06/25 Total Bilirubin 0.8 mg/dl (0.2-1.0) 06/06/25 AST 167 U/L (13-39) H 06/06/25 ALT 135 U/L (7-52) H 06/06/25 Alkaline Phosphatase 31 U/L (34-104) L 06/06/25 TP 4.4 gm/dl (6.0-8.3) L 06/06/25 Albumin 2.8 gm/dl (3.4-5.0) L 06/06/25 Globulin 1.6 gm/dl (2.5-4.0) L 06/06/25 Albumin/Globulin Ratio 1.8 (0.9-2) 06/06/25 Mg 2.1 mg/dl (1.7-2.4) 06/05/25 12:27 Calcium Level 6.8 mg/dl (8.6-10.3) L 06/06/25 05:11 Prothromb Time International Ratio 1.0 (0.9-1.1) 06/06/25 06:2 2 Diagnostic Findings (Past 24 Hours) Chest X-Ray 06/05/25 00:00 SINGLE VIEW CHEST CLINICAL HISTORY: Trauma FINDINGS: An AP, portable, upright chest radiograph is compared to study dated 06/03/2025. The examination is degraded by portable technique and patient rotation. The patient is status post midline sternotomy. The heart is enlarged noting atherosclerotic calcification of the thoracic aorta. There is pulmonary vascular congestion. There is chronic elevation of the right hemidiaphragm. Atelectasis is noted at the lung bases. Question small pleural effusions. No pneumothorax is seen. The skeletal structures are osteopenic. The bony thorax is grossly intact. IMPRESSION: 1. Cardiomegaly with pulmonary vascular congestion. Radiographic follow-up to resolution is recommended. 2. Question small pleural effusions. ACT 112: Negative or not required by law. Electronically signed by: Myles Ramirez M.D. 06/05/2025 1:11 PM Chest X-Ray 06/05/25 16:07 EXAM: XR chest 1V portable CLINICAL HISTORY: intubation TECHNIQUE: An X-ray image of the chest is obtained in AP projection. COMPARISON: 06/03/2025. FINDINGS: The ET tube is away from the estee about 2.8 cm. Nasogastric tube seen passing below the left hemidiaphragm with its tip not within the [id number] Pulmonary Parenchyma: Lungs are clear bilaterally. No evidence of consolidation, collapse, or focal opacities. No pulmonary nodules are identified. Blunted left costophrenic angle suggestive of pleural effusion. Heart and Mediastinum: Sterneotomy wires noted. Cardiomegaly noted with congestion in both dilma. No hilar or mediastinal lymphadenopathy. Bony Thorax: Bony thorax appears intact without fractures or deformities. Soft Tissues: Soft tissues overlying the chest wall are unremarkable. IMPRESSION: 1. The ET tube is away from the estee about 2.8 cm . New finding. 2. Nasogastric tube seen passing below the left hemidiaphragm with its tip not within the [id number] 3. Mild Blunted left costophrenic angle suggestive of pleural effusion. 4. Cardiomegaly noted with congestion in both dilma. Electronically signed by Zana Larose 06-05-2025 6:19 PM Chest X-Ray 06/06/25 06:00 SINGLE VIEW CHEST CLINICAL HISTORY: Respiratory failure. FINDINGS: An AP, portable, semierect chest radiograph is compared to studies dated 06/05/2025. The examination is degraded by portable technique and patient rotation. The endotracheal tube, an enteric tube, and a left subclavian central venous catheter are unchanged in position. The tip of the subclavian catheter projects over the right atrium. The patient is status post midline sternotomy. The heart is enlarged noting atherosclerotic calcification of the thoracic aorta. There is pulmonary vascular congestion. There is mild chronic elevation of the right hemidiaphragm. Atelectasis is noted at the lung bases. There are small pleural effusions, left larger than right with dependent atelectasis. No pneumothorax is seen. The skeletal structures are osteopenic. The bony thorax is grossly intact. IMPRESSION: 1. Stable lines and tubes. 2. Cardiomegaly with mild pulmonary vascular congestion. Radiographic follow-up to resolution is recommended. 2. Small pleural effusions. ACT 112: Negative or not required by law. Electronically signed by: Myles Ramirez M.D. 06/06/2025 8:32 AM I & O Totals 24 Hours 06/05/25 06/06/25 06/07/25 06:59 06:59 06:59 Intake Total 2709.258 / 2718.375 568.264 / 568.264 Output Total 157 / 157 15 / 15 Balance 2552.258 / 2561.375 553.264 / 553.264 Cumulative 06/05/25 12:11 thru 06/06/25 10:22 Intake Total 3277.522 Output Total 172 Balance 3105.522 RT Ventilator Mngmt (Last Documented) Ventilator Ordered Settings Ventilator Support Mode Assist Control 06/06/25 07:58 Respiratory Rate 22 06/06/25 09:00 Ventilator Tidal Volume 400 06/06/25 07:58 Setting Minute Ventilation 8.9 06/06/25 07:58 Positive End Expiratory 5 06/06/25 07:58 Pressure Fraction of Inspired Oxygen 30 06/06/25 07:58 Machine Comment ett tube found at 23cm lip 06/06/25 03:48 Ventilator - PT Measurements Respiratory Rate 22 Exhaled Tidal Volume 396 Minute Ventilation 8.9 Peak Inspiratory Airway 16 Pressure Plateau Pressure 14.6 Respiratory Cycle Inspiratory: 1:3.3 Expiratory Ratio Inspiratory Phase Time 0.75 End-Tidal CO2 22 Static Lung Compliance 41.56 Dynamic Lung Compliance 36.00 Normal Static Lung Compliance 48.00 Coding Level of Care Code 82439 CRITICAL CARE 1ST 30-74M Additional Critical Care Time Additional 30min Critical Care Time: Yes - [id number] elevation myocardial infarction involving right coronary artery I21.11 Involved coronary artery: right coronary artery Syncope and collapse R55 Coronary artery disease involving [place] coronary artery of [place] heart with angina pectoris I25.119 Coronary Disease-Associated Artery/Lesion type: [place] artery [place] vs. transplanted heart: [place] heart Associated angina: with unspecified form of angina Complete heart block, transient I44.2 Additional Codes Critical Care Time - Additional 30min Critical Care Time: Yes - ([id number]) (1) ST elevation (STEMI) myocardial infarction Involved coronary artery: right coronary artery Qualified Code(s): I21.11 - ST elevation (STEMI) myocardial infarction involving right coronary artery (3) CAD (coronary artery disease) Coronary Disease-Associated Artery/Lesion type: [place] artery [place] vs. transplanted heart: [place] heart Associated angina: with unspecified form of angina Qualified Code(s): I25.119 - Atherosclerotic heart disease of [place] coronary artery with unspecified angina pectoris
--- NOTE | 2025-06-06 11:54 | XRay Report ---
KUB CLINICAL HISTORY: Vomiting. FINDINGS: An AP supine abdominal radiograph is compared to abdominal radiographs dated 07/29/2008. An enteric tube is in place. The tip projects below the diaphragm over the distal stomach. There is no r adiographic evidence of bowel obstruction. A rectal temperature probe is in place. Excreted IV contra st is noted in the renal collecting systems. There are numerous pelvic phleboliths. The skeletal stru ctures are osteopenic and appear intact. There is moderate lumbosacral spondylosis. Degenerative scl erosis is noted in the sacroiliac joints and pubic symphysis. A right hip arthroplasty is in place. A rthritic changes noted in the left hip. IMPRESSION: 1. An enteric tube is in place as above. 2. There is no radiographic evidence of bowel obstruction. Electronically signed by: Myles Ramirez M.D. 06/06/2025 11:52 AM
[2025-06-06] MEDS: ROSUVASTATIN CALCIUM 20 MG TAB PO SCH (12:09)
--- NOTE | 2025-06-06 12:36 | Hospitalist Progress Note ---
Date of Service June 06, 2025 Assessment & Plan (1) Acute ST elevation myocardial infarction (STEMI) of inferior wall: Plan: To address #1, patient underwent emergent cardiac catheterization (06/05/2025, 1:04pm, [facility] Interventional CARDS Dr. Amari Valles) with successful deployment of "2 overlapping drug-eluting stents in the mid and distal RCA covering the previous stent which seemed to harbor thrombus after the angioplasty portion of the procedure." Patient subsequently was loaded with plavix 600mg PO x 1 dose (06/05/2025, 2:54pm) and will start plavix 75mg PO daily (06/06/2025, 9:00am) and continue with her home-scheduled ASA 81mg PO daily (06/06/2025, 9:00am); patient will then continue with both plavix 75mg PO daily and ASA 81mg PO daily for the rest of her life. Patient will also continue with her home-scheduled, high intensity dose rosuvastatin 40mg PO daily and ezetimibe 10mg PO daily. Patient was also started on integrilin 20mg in 6.8 mL IV x 1 dose (first bolus administered on 06/05/2025, 3:38pm), followed by integrilin 20mg in 6.8 mL IV x 1 dose (second bolus administered on 06/05/2025, 3:39pm), followed by integrilin infusion @ 2.06 ug/kg/min (06/05/2025, 6:06pm) for 18 hours, followed by its discontinuation on 06/06/2025, 9:00am. Of final note, patient is being held OFF her home-scheduled metoprolol succinate 12.5mg PO qhs given potential for this medication to cause further bradycardia and/or hypotension. Patient is also not being started on either SHER inhibitor and/or ARB given the potential for either medication to cause further hypotension and/or acute renal injury/failure. cf., admission creatinine 1.19 mg/dL, GFR 44.8 mL/min (06/05/2025, 12:27pm). cf., TTE (06/05/2025, 3:54pm): 1. LV EF 60-65%. Regional wall motion abnormalities including mild hypokinesis of inferior wall from base to mid ventricle. 2. RV ventricle mildly dilated with RV systolic function moderately reduced. 3. LA size normal. 4. MV anatomy normal. 5. Very small posterior pericardial effusion. (as per CARDS Dr. Bran Field). 06/06/2025: Patient continues to receive plavix 75mg PO daily, ASA 81mg PO daily, rosuvastatin 40mg PO daily, and ezetimibe 10mg PO daily. (2) Cardiogenic shock: Plan: To address #2, patient was started on dual pressor support utilizing norepinephrine 4mg IV x 1 dose (06/05/2025, 2:50pm), followed by norepinephrine infusion @ 0.2ug/kg/min (06/05/2025, 4:08pm) and dopamine infusion @ 7.5ug/kg/min (06/05/2025, 3:30pm), as well as 1 liter of 0.9% NS @ 75 mL/hr (06/05/2025, 4:26pm), all to maintain MAP > 65 mm Hg, and to "Gradually wean these down. Since we were relatively quick in getting reperfusion I am hopeful that she will be able to maintain blood pressure without vasopressors by tomorrow." (as per [facility] Interventional CARDS Dr. Amari Valles) on 06/05/2025. In addition, patient was also loaded with anti-arrhythmic agent amiodarone 300mg IV x 1 dose (06/05/2025, 3:37pm), followed by amiodarone 150mg IV x 1 dose @ 600 mL/hr (06/05/2025, 4:09pm), followed by amiodarone infusion @ 1mg/min (06/05/2025, 4:27pm), to prophylax against potential ventricular arrhythmias that may arise post-cardiac catheterization in this patient with recurrent acute inferior wall STEMI and cardiogenic shock. 06/06/2025: Patient still requires dual pressor support utilizing norepinephrine infusion @ 0.2ug/kg/min (06/06/2025, 10:22am) and dopamine infusion @ 5ug/kg/min (06/06/2025, 3:18am). Patient also continues to receive amiodarone infusion @ 0.5mg/min (06/06/2025, 10:21am). (3) Acute tubular necrosis: Plan: Patient's renal function has worsened: cf., BUN 19, creatinine 1.19, GFR 44.8 (06/05/2025, 12:27pm). cf., BUN 25, creatinine 2.04, GFR 23.5 (06/06/2025, 5:11am). Etiology of acute renal injury is attributed to acute tubular necrosis, which in turn, is due to acute cardiogenic shock, which in turn, is due to acute inferior wall STEMI. In addition, patient's nominal urine output parallels the patient's worsening renal function with a recorded urine output of 0.09 mL/kg/hr (06/05/2025, 11:42am to 06/06/2025, 11:42am). Hence, patient continues to receive dual pressor support utilizing norepinephrine infusion @ 0.2ug/kg/min (06/06/2025, 10:22am) and dopamine infusion @ 5ug/kg/min (06/06/2025, 3:18am) in order to augment renal perfusion, and thereby increase urine output over the next 24-48 hours, hopefully. Stay tuned. (4) Acute hepatic failure: Plan: Patient's transaminase levels have increased: cf., AST 27, ALT 27, ALK PHOS 36, TBili 1.3, albumin 4.0 (06/05/2025, 12:27pm). cf., AST 167, ALT 135, ALK PHOS 31, TBili 0.8, albumin 2.8 (06/06/2025, 5:11am). Patient's liver's synthetic function remains intact: cf., INR 1.0 (06/05/2025, 12:27pm). cf., INR 1.0 (06/06/2025, 6:22am). Hence, I surmise that patient does not suffer from acute hepatic failure as of now, but may develop acute hepatic failure in the day(s) to come, which in turn, is due to acute cardiogenic shock, which in turn, is due to acute inferior wall STEMI. Hence, patient continues to receive dual pressor support utilizing norepinephrine infusion @ 0.2ug/kg/min (06/06/2025, 10:22am) and dopamine infusion @ 5ug/kg/min (06/06/2025, 3:18am) in order to augment hepatic perfusion, and thereby mitigate further transaminase elevation(s) over the next 24-48 hours, hopefully. Stay tuned. (5) Acute hyponatremia: Plan: Patient's sodium level has declined: cf., Na 140 mmol/L (06/05/2025, 12:27pm). cf., Na 132 mmol/L (06/06/2025, 5:11am). Etiology of acute hyponatremia is probably due to a combination of (a) acute dehydration in the NPO state due to mechanical intubation/ventilation on Assist Control with TV 400 mL, RR 19 breaths/minute, PEEP 5 cm H2O, and FIO2 = 0.3 ( 06/06/2025, 10:25am); and/or (b) SIADH in the setting of acute RV systolic CHF, which in turn, is due to acute cardiogenic shock, which in turn, is due to acute inferior wall STEMI. Hence, patient has already received 1 liter of 0.9% NS @ 75 mL/hr (start date/time, 06/05/2025, 4:26pm) and continues to receive 1 liter of 0.9% NS @ 75 mL/hr (start date/time, 06/06/2025, 4:42am) to mitigate further declines in Na levels over the next 24-48 hours, hopefully. Stay tuned. (6) Hypocalcemia: Plan: Patient's calcium level has declined: cf., Ca 9.1, albumin 4.0, Ca corrected 9.1 (06/05/2025, 12:27pm). cf., Ca 6.8, albumin 2.8, Ca corrected 7.8 (06/06/2025, 5:11am). Etiology of acute hypocalcemia is probably due to acute dehydration in the NPO state due to mechanical intubation/ventilation. Hence, patient has already received calcium gluconate 1g IV x 3 doses (06/06/2025, 6:00am, 6:35am, and 6:49am) to mitigate further declines in Ca levels over the next 24-48 hours, hopefully. Stay tuned. (7) Symptomatic bradycardia: Plan: To address #3, patient was continued on nurse monitoring in ICU bed #E109-1 on admission date 06/05/2025. Continue transvenous PPM in situ as needed, as recommended by [facility] Interventional CARDS Dr. Amari Valles, on 06/05/2025, and who also recommends "that as we titrate down her vasopressor support we keep the transvenous pacemaker in place as she may become profoundly bradycardic without dopamine and norepinephrine. Then, we could start to titrate down the pacer to see if she can sustain a sinus rhythm long-term. She has had more than 1 m yocardial infarction in the RCA distribution and I am concerned that she will eventually require permanent pacemaker particularly for us to optimize her medical therapy." 06/06/2025: Patient is not bradycardic with HR 80 bpm (06/06/2025, 10:25am). Continue nurse monitoring and transvenous PPM in situ as needed. Plan Code status, FULL CODE @ home. ACLS as required. Condition of patient remains tenuous on 06/06/2025, and is contingent on patient demonstrating recovery of renal function/urine output to at least 30 mL/kg/hr. cf., current urine output of 0.09 mL/kg/hr (06/05/2025, 11:42am to 06/06/2025, 11:42am). Admission and Anticipated Discharge Date Admission Date: June 05, 2025 Subjective Patient is non-verbal due to intubation, but can respond with her head and her eyes in a "yes" or "no" manner to questions as patient is currently off sedation (e.g., propofol) on 06/06/2025, 12:14pm. Patient denies antecedent/coincident fevers, chills, diaphoresis, cough, wheeze, sore throat, hemoptysis, shortness of breath, dyspnea on exertion, chest pains, palpitations, pleurisy, nausea, vomiting, diarrhea, abdominal pain, pelvic pain, hematemesis, hematochezia, melena, hematuria, dysuria, frequency, urgency, headaches, dizziness, lightheadedness, visual changes, hearing changes, weakness, falls, syncope, trauma, travel history, sick contacts, or food/drug ingestions novel or new. All other review of systems are reported as negative by the patient on 06/06/2025. Review of Systems Constitutional: As stated above in the Subjective section of this 06/06/2025 Hospitalist Progress note. Physical Exam Physical Exam: General appearance: Run-down, worn-out, NOT diaphoretic at all on 06/06/2025, 12:14pm. Wide awake and alert. Not confused, lethargic, or obtunded. Patient is non-verbal due to intubation, but can respond with her head and her eyes in a "yes" or "no" manner to questions as patient is currently off sedation (e.g., propofol) on 06/06/2025, 12:14pm. HEENT: Normocephalic; atraumatic. EOMI. PERRL. Neck: Supple, no stridor, bruit, goiter, JVD, or HJR. Lymph: No lymphadenopathy. Chest: Symmetric rise and fall with respirations. Non-tender to palpation. Lungs: Clear to auscultation and percussion. No audible wheeze, pectoriloquy, increase in tactile fremitus, or flatness/dullness to percussion a t the bases. Heart: RRR, S1S2, no S3 or S4. Grade II/ early systolic murmur @ LLSB without radiation to the carotids, axilla, or back, and which remains invariant in regards to the respiratory cycle. Abd: Soft, non-tender, non-distended. No rebound, guarding, Mota's sign, or organomegaly. Bowel sounds auscultated in all 4 quadrants. Ext: No clubbing, cyanosis, or edema. 2+ pedal pulses bilaterally. Skin: No decubitus ulcer, exanthem, or enanthem. Neuro: Alert and oriented in regards to person, place, time, or situation. No myoclonus, tremors, or tics. Urology: + card catheter with urine output 0.09 mL/kg/hr (06/05/2025, 12:33pm through 06/06/2025, 12:33pm). No urethral discharge. Psych: No suicidal ideation. No homicidal ideation. Results & Data Results & Data Vital Signs (Past 12 Hours) Vital Signs Temp Pulse Resp BP Pulse Ox O2 Del Method FiO2 06/06/25 10:25 80 19 99 30 06/06/25 09:01 112/48 L 06/06/25 09:00 37.1 C 74 22 06/06/25 08:57 37.1 C 73 19 98 06/06/25 08:00 92/60 L 06/06/25 07:58 95 H 22 98 30 06/06/25 07:51 Mechanical Vent 30 06/06/25 07:42 37.1 C 81 16 98 06/06/25 07:33 37.1 C 76 16 98 06/06/25 07:27 37.1 C 77 16 98 06/06/25 07:09 37.1 C 70 16 97 06/06/25 07:00 121/41 L 06/06/25 07:00 121/41 L 06/06/25 06:57 37.0 C 70 16 98 06/06/25 06:48 37.0 C 70 16 97 06/06/25 06:15 37.0 C 80 18 99 06/06/25 06:14 75/44 L 06/06/25 06:00 102/42 L 06/06/25 05:54 36.9 C 69 17 98 06/06/25 05:09 36.7 C 70 18 107/37 L 99 06/06/25 04:48 36.7 C 71 17 99 06/06/25 04:00 106/46 L 06/06/25 04:00 106/46 L 06/06/25 04:00 106/46 L 06/06/25 04:00 106/46 L 06/06/25 04:00 36.5 C 71 17 106/46 L 99 06/06/25 03:48 74 16 99 30 06/06/25 03:42 36.4 C L 76 17 99 06/06/25 03:00 104/47 L 06/06/25 02:41 30 06/06/25 02:09 36.0 C L 78 16 100 06/06/25 02:00 36.0 C L 81 17 104/50 L 100 06/06/25 01:00 35.7 C L 79 16 101/51 L 100 Laboratory Results Troponin-I #1 140.8 pg/mL (06/05/2025, 12:27pm). Troponin-I #2 3027.8 pg/mL (06/05/2025, 4:25pm). Troponin-I #3 10,476.0 pg/mL (06/05/2025, 11:14pm). Troponin-I #4 15,668.7 pg/mL (06/06/2025, 5:11am). Troponin-I #5 15,258.4 pg/mL (06/06/2025, 10:51am). WBC 5.74, N46 L39 M11 E3 B1, Hb 13.7, MCV 89.2, MCHC 32.8, platelet 184 (06/05/2025, 12:27pm). WBC 20.37, N83 L13 M 2 E1, Hb 13.6, MCV 92.4, MCHC 31.9, platelet 227 (06/05/2025, 4:25pm). WBC 11.97, N72 L15 M13, Hb 10.9, MCV 89.4, MCHC 32.4, platelet 182 (06/06/2025, 5:11am). INR 1.0 (06/05/2025, 12:27pm). INR 1.0 (06/06/2025, 6:22am). Na 140, K 4.5, CO2 26, BUN 19, creatinine 1.19, GFR 44.8, glucose 120, Ca 9.1, Mg 2.1, AST 27, ALT 27, ALK PHOS 36, TBili 1.3, albumin 4.0 (06/05/2025, 12:27pm). Na 132, K 3.4, CO2 16, BUN 25, creatinine 2.04, GFR 23.5, glucose 160, Ca 6.8, PO4 2.8, AST 167, ALT 135, ALK PHOS 31, TBili 0.8, albumin 2.8 (06/06/2025, 5:11am). TSH 5.936 uIU/mL (06/05/2025, 12:27pm). Free T4 0.71 ng/dL (06/05/2025, 12:27pm). MRSA nares PCR (06/05/2025, 5:20pm). ABG 7.35 / 26 / 94 / 14 / O2 sat 97% on FIO2 (06/06/2025, 6:11am). Diagnostic Findings Portable CXR (06/05/2025, 1:11pm): Cardiomegaly with pulmonary vascular congestion. No infiltrate, effusion, or pneumothorax (by my review). EKG #1 (06/05/2025, 12:23pm): sinus bradycardia @ 45, CA 176, QTC 442, 2mm ST elevation in III; 0.5mm ST elevation in aVF; 1mm ST depression in I, aVL; 1.5mm ST depression in V2; TWI in V3, V4, V5, V6; no q waves (by my review). EKG #2 (06/05/2025, 12:29pm): sinus bradycardia @ 51, CA 196, QTC 451, 5mm ST elevation in III; 4mm ST elevation in aVF; 2mm ST elevation in II; 1mm ST depression in aVL; 5mm ST depression in V2; (by my review). 1mm ST elevations in V3, V4, V5, V6; 2mm ST depression in I; no q waves EKG #3 (06/05/2025, 2:00pm): normal sinus @ 80, CA 132, QTC 422, no ST elevations; 1mm ST depression in V5, (by my review). no q waves TTE (06/05/2025, 3:54pm): 1. LV EF 60-65%. Regional wall motion abnormalities including mild hypokinesis of inferior wall from base to mid ventricle. 2. RV ventricle mildly dilated with RV systolic function moderately reduced. 3. LA size normal. 4. MV anatomy normal. 5. Very small posterior pericardial effusion. (as per CARDS Dr. Bran Field). PG Care Time/CCT Total # of Minutes Spent Total Time Spent with Patient: Total time spent is greater than 50% in coordination of care (as documented) at patient's floor/unit and/or counseling patient: Coding Level of Care Code 33233 SUB INP/OBS CARE 3/50MIN Diagnoses Acute ST elevation myocardial infarction (STEMI) of inferior wall I21.19 Cardiogenic shock R57.0 Acute tubular necrosis N17.0 Acute hepatic failure K72.00 Acute hyponatremia E87.1 Hypocalcemia E83.51 Symptomatic bradycardia R00.1
[2025-06-06 15:15] LABS: Hematocrit (blood only) 32.0 % (37.0-47.0); Hemoglobin 10.8 g/dl (12.0-16.0); Immature Granulocytes # (auto) 0.04 K/uL (0.01-0.20); Immature Granulocytes % (auto) 0.3 %; Mean Corpuscular Hemoglobin 29.6 pg (25.0-34.0); Mean Corpuscular Volume 87.7 fL (80.0-100.0); Platelet Count 180 K/uL (130-400); RDW Standard Deviation 48.3 fL (36.4-46.3); Red Blood Count 3.65 M/uL (4.20-5.40); White Blood Count 11.81 K/ul (4.8-10.8)
[2025-06-07] MEDS: ACETAMINOPHEN 1,000 MG/100 ML VIAL IV PRN (01:53)
[2025-06-07 05:17] LABS: Base Excess VBG -10.2 mEq/L; HCO3 VBG 14 mmol/L; Oxygen Saturation VBG 98.6 %; PCO2 VBG 28 mmHg (38-50); PO2 VBG 76 mmHg; pH VBG 7.32 (7.36-7.41)
[2025-06-07 05:43] LABS: Anion Gap 8.0 (3-11); Blood Urea Nitrogen 25.0 mg/dl (6-23); Calcium 7.1 mg/dl (8.6-10.3); Carbon Dioxide 15.0 mmol/L (21-32); Chloride 107.0 mmol/L (98-107); Creatinine Clr Calc Pharmacy 16.7 ml/min; Glucose 125.0 mg/dl (70-99(Fasting)); Potassium 3.8 mmol/L (3.5-5.1); Sodium 130.0 mmol/L (136-145)
[2025-06-07 07:21] LABS: Hematocrit (blood only) 27.1 % (37.0-47.0); Hemoglobin 9.4 g/dl (12.0-16.0); Mean Corpuscular Hemoglobin 30.0 pg (25.0-34.0); Mean Corpuscular Volume 86.6 fL (80.0-100.0); Platelet Count 145 K/uL (130-400); RDW Standard Deviation 48.7 fL (36.4-46.3); Red Blood Count 3.13 M/uL (4.20-5.40); White Blood Count 5.90 K/ul (4.8-10.8)
[2025-06-07 07:35] LABS: Alanine Aminotransferase 80.0 U/L (7-52); Alkaline Phosphatase 40.0 U/L (34-104); Bilirubin,Total 1.0 mg/dl (0.2-1.0); Magnesium 1.5 mg/dl (1.7-2.4); Total Protein 4.4 gm/dl (6.0-8.3)
[2025-06-07 07:43] LABS: Acanthocytes 3+; Immature Granulocytes # (auto) 0.02 K/uL (0.01-0.20); Immature Granulocytes % (auto) 0.3 %; Ovalocytes 1+; Toxic Vacuolation 1+
--- NOTE | 2025-06-07 07:46 | Critical Care Progress Note ---
Date of Service June 07, 2025 Assessment & Plan (1) Acute hyponatremia: (2) Acute tubular necrosis: (3) Acute ST elevation myocardial infarction (STEMI) of inferior wall: (4) Complete heart block, transient: (5) Syncope and collapse: (6) Chronic diastolic CHF (congestive heart failure): (7) Hyperlipidemia: (8) CAD (coronary artery disease): (9) Shock circulatory: (10) ZORAN (acute kidney injury): Plan Reason Critically Ill: 84-year-old female in cardiogenic shock underwent successful drug-eluting stent placement PLAN: Neuro: On fentanyl and midazolam pushes Propofol was discontinued because of negative inotropic effects Resp: -- Acute respiratory failure secondary to cardiogenic shock - Hopeful for spontaneous breathing trial when there is more hemodynamic stability CV: Cardiogenic shock: Right-sided heart failure Random cortisol 21 Continue with vasopressor support to keep MAP greater than 65 Coronary artery disease status post ST elevation [place] with transient complete heart block - Drug-eluting stent to RCA - Dual antiplatelet therapy Episode of ventricular fibrillation - Continue amiodarone infusion Bradycardia transient heart block - Continue pacemaker with backup rate this has been adjusted by cardiology: Increased rate of 80 has improved hemodynamics Fluids/Renal: -- Acute kidney injury Monitor BUN/creatinine Avoid nephrotoxic medications Strict ins and outs ID: -- New onset fever Chest x-ray looks clean Urine is dirty Continue with antibiotics to cover for UTI Follow-up urine culture Follow-up blood cultures GI/Nutrition: Transaminitis --> trending down Secondary to cardiogenic shock and probable congestive hepatopathy Continue to monitor History of hyperlipidemia - Zetia 10 mg and Crestor Heme: -- Normocytic anemia Monitor H&H Transfuse for hemoglobin less than 7.5 Endocrine: ICU hyperglycemia protocol Vascular access: Right groin arterial sheath, left subclavian central venous access Code Status: Full code Disposition: ICU --Prophylaxis VTE: Lovenox GI: Pantoprazole Lines: Left subclavian, right femoral arterial, peripheral, right groin arterial sheath Sofia Diet: N.p.o. Plan: In/out: +2 L, urine output 849, +5 L since coming to the hospital There has been drop in patient's hemoglobin but she is also +2 L unfortunately she is not making good amount of urine Metabolic alkalosis is most likely from acute kidney injury. 2 A of bicarb will be given to the patient Random cortisol was 21, will start the patient on hydrocortisone DC dopamine and start the patient on epinephrine and vasopressin. Patient's kidney function is deteriorating her urine output is also decreasing. Will get nephrology involved Overall if the patient's kidney function does not improve, starting dialysis on the patient who is needing 3 vasopressors would be difficult Magnesium and potassium being replaced DC IV fluids Blood culture to be sent today Start Rocephin for new onset fever for possible UTI Patient's who was at bedside was updated regarding patient's critical condition I have personally spent 42 minutes of critical care time in the direct management of this patient. This is a life/limb threatening event. This includes time spent evaluating patient, direct bedside care, chart review, placing orders, interpretation of diagnostic studies, discussion with consultants, patient, and family members, as well as other required patient management activities. This time is exclusive of all separately billable procedures, and teaching time and separate from and in addition to any other critical care service time. Please note the above document was generated using voice recognition software. It may contain grammatical, syntax or spelling errors. Admission and Anticipated Discharge Date Admission Date: June 05, 2025 Subjective Patient seen and examined at bedside. No acute distress, no adverse events overnight Patient was on 0.22 of Levophed, 5 of dopamine She was breathing over the vent. She is getting as needed midazolam and fentanyl pushes She was following simple commands. Review of Systems 2 Review of Systems: Unobtainable due to endotracheal tube Physical Exam 2 Physical Exam: Constitutional: No acute distress HEENT: EOMI, PERRLA Respiratory system: Decreased air entry bilaterally, no wheeze, no rhonchi, positive crackles bilateral lower lobe CVS: S1-S2 positive Abdomen: Soft, nontender, nondistended, positive bowel sounds x4 Extremities: +2 pulses bilaterally radialis/ dorsalis pedis, no cyanosis, +1 pitting edema bilateral lower extremity Neuro: Intubated, RASS -1, following simple commands Psych: Unable to assess G/U: Positive Sofia Skin: no rashes, warm and dry Lymphatic: no cervical or axillary lymphadenopathy Results & Data Results & Data Vital Signs (Past 12 Hours) Vital Signs Temp Pulse Resp BP Pulse Ox FiO2 06/07/25 05:00 37.5 C 89 24 92 06/07/25 04:06 37.6 C H 83 18 93 06/07/25 03:18 37.7 C H 80 17 94 06/07/25 03:00 144/51 H 06/07/25 02:45 37.8 C H 84 22 100 06/07/25 02:31 95 H 26 H 94 30 06/07/25 02:06 38.0 C H 83 19 134/50 L 93 06/07/25 01:57 38.0 C H 85 26 H 93 06/07/25 01:00 37.9 C H 86 29 H 125/41 L 94 06/07/25 00:03 37.9 C H 89 22 123/51 L 93 06/07/25 00:00 88 06/06/25 23:45 37.9 C H 92 H 18 93 06/06/25 23:00 37.9 C H 84 21 131/41 L 94 06/06/25 22:05 88 20 95 30 06/06/25 22:00 37.9 C H 83 20 130/45 L 94 06/06/25 21:00 37.9 C H 86 20 132/52 L 96 06/06/25 20:32 37.9 C H 82 18 97 06/06/25 20:00 121/50 L 06/06/25 19:53 37.8 C H 84 18 98 Laboratory Results 06/07/25 04:38 06/07/25 04:35 Coding Level of Care Code 85826 CRITICAL CARE 1ST 30-74M Diagnoses Acute hyponatremia E87.1 Acute tubular necrosis N17.[address] elevation myocardial infarction (STEMI) of inferior wall I21.19 Complete heart block, transient I44.2 Syncope and collapse R55 Chronic diastolic CHF (congestive heart failure) I50.32 Hyperlipidemia E78.5 Coronary artery disease involving [place] coronary artery of [place] heart with angina pectoris I25.119 Associated angina: with unspecified form of angina Coronary Disease-Associated Artery/Lesion type: [place] artery [place] vs. transplanted heart: [place] heart Shock circulatory R57.9 ZORAN (acute kidney injury) N17.9 (8) CAD (coronary artery disease) Associated angina: with unspecified form of angina Coronary Disease- Associated Artery/Lesion type: [place] artery [place] vs. transplanted heart: n ative heart Qualified Code(s): I25.119 - Atherosclerotic heart disease of [place] coronary artery with unspecified angina pectoris
--- NOTE | 2025-06-07 07:47 | XRay Report ---
EXAM: XR chest 1V portable CLINICAL HISTORY: Eval lines/tubes/lung waldron- while intubated. TECHNIQUE: An X-ray image of the chest is obtained in AP projection. COMPARISON: Prior 06/05/2025. FINDINGS: Tubes: The ET tube is away from the estee about 2.8 cm. Nasogastric tube seen passing below the left hemidiaphragm, with its tip not within the field of view. Left CVL is noted, the tip in the right atrium. Unchanged. Pulmonary Parenchyma: Lungs are clear bilaterally. No evidence of consolidation, collapse, or focal opacities. No pulmonary nodules are identified. Blunted left costophrenic angle suggestive of pleural effusion. Heart and Mediastinum: Cardiomegaly noted with congestion in both hilum. No hilar or mediastinal lymphadenopathy. Bony Thorax: Sternotomy wires noted. Bony thorax appears intact without fractures or deformities. Soft Tissues: Unremarkable. IMPRESSION: 1. Blunted left costophrenic angle, suggestive of pleural effusion. Interval improvement. 2. The ET tube is away from the estee about 2.8 cm. 3. Nasogastric tube seen passing below the left hemidiaphragm, with its tip not within the field of view. 4. Left CVL is noted, the tip in right atrium. Unchanged. 5. No other significant findings or changes. Electronically signed by Zana Larose 06-07-2025 07:47 AM
[2025-06-07] MEDS: MAGNESIUM SULFATE / D5W 1 GM/100 ML BAG IV SCH (08:24)
[2025-06-07] MEDS: ENOXAPARIN INJ 30 MG/0.3 ML SYR SQ SCH (08:26)
[2025-06-07] MEDS: SODIUM BICARB 8.4% INJ 50 MEQ/50 ML SYR IV STA ×2 (08:43→10:06)
[2025-06-07] MEDS: cefTRIAXone SODIUM 2,000 MG/50 ML BAG IV SCH (08:43)
[2025-06-07] MEDS: POTASSIUM CHLORIDE / WTR 20 MEQ/100 ML PLCT IV ONE (08:44)
[2025-06-07] MEDS: PANTOprazole 40 MG/10 ML SYR IV SCH (08:44)
[2025-06-07] MEDS ORDERED: STAT IV Infusion **Titration per Protocol STA ×2 (09:07→09:36)
[2025-06-07] MEDS: VASOPRESSIN 20 UNITS in SODIUM CHLORIDE 0.9% 100 ML IV SCH (09:24)
[2025-06-07] MEDS ORDERED: Nursing to Pharmacy Communication SCH ×2 (09:45→18:30)
[2025-06-07] MEDS: EPINEPHrine/NSS 4 MG/254 ML BAG IV SCH (09:47)
[2025-06-07 10:00] LABS: iSTAT Art Bld Gas Base Excess -10.0 meg/L (-9-1.8); iSTAT Art Bld Gas pCO2 Correct 25 mmHg (35-46); iSTAT Art Bld Gas pH Corrected 7.377 (7.35-7.45); iSTAT Arterial Blood Gas pO2 C 68
--- NOTE | 2025-06-07 10:30 | Nephrology Consultation ---
Date of Consultation June 07, 2025 Assessment & Plan (1) ZORAN (acute kidney injury): (2) Acute hyponatremia: (3) Hypocalcemia: (4) Acute hepatic failure: (5) Acute ST elevation myocardial infarction (STEMI) of inferior wall: (6) Cardiogenic shock: (7) Symptomatic bradycardia: Plan 84-year-old female with recent kidney function in, baseline creatinine 1.0-1.1 mg/dl, admitted to the hospital with cardiogenic shock and STEMI, had 2 RCA stent and currently intubated and on multiple pressor. On admission creatinine was 1.0 but over last 24 hours developed acute kidney injury most likely secondary to ATN in the setting of cardiogenic shock with rapid worsening of kidney function noted creatinine was 2.0 yesterday and 2.4 this morning. Electrolyte abnormality noted including hypokalemia, hypocalcemia and hypomagnesemia. Clinically volume overloaded and however no significant issues with ventilation. Urine output has been slightly low. -- Agree with continuing on hemodynamic support. Continue to monitor urine output. If urine output remains low, recommend a trial of IV Bumex 2 mg x 1 dose. Check electrolyte in the afternoon. If any critical electrolyte abnormality and urine output remains low, may need to consider dialysis. However, with her hemodynamic instability, intermittent hemodialysis may not be tolerated. May need to consider transferring to tertiary care facility for CRRT if dialysis needed. -- Dose medications for eGFR less than 30 --Avoid nephrotoxic medications. Thank you for allowing me to participate in your patient's care. It was a pleasure to see Raeann. History of Present Illness Reason for Consultation: ZORAN, oliguria Attending Physician: Mario Taveras MD, PhD History of Present Illness Ms. Raeann Urbina is a 84-year-old female with past medical history significant for coronary artery disease, hypertension, dyslipidemia, bradycardia admitted to the hospital with STEMI. Nephrology consult requested for management of acute kidney injury, EMR records were reviewed in detail during patient's visit. was at bedside during the visit Raeann initially presented to hospital on 06/03/25 after a syncopal episode. During the hospitalization she had elevated troponin but no EKG changes. With her prior history of coronary artery disease a cardiac cath was recommended. Family declined and she on 06/05/2025. She present to the hospital again an hour after going after she had another episode of syncope and started having chest pain without much improvement with nitroglycerin. On arrival on 06/05/2025 she was found to be bradycardic and significantly hypotensive with close blood pressure 56/39 and evidence of STEMI. While she was waiting to be taken to [facility] she became profoundly bradycardic, hypoxic and blood pressure dropped further and [facility] was called and she was intubated, sedated and started on pressor support. After stabilization she was taken to the [facility], found to have occluded RCA eventually she had to stay in place. On admission her kidney function was normal, creatinine was 1.0 which seems to be her baseline. However over last 2 days kidney function rapidly worsened, creatinine was 2.0 yesterday and 2.4 this morning. Urinalysis with 4+ proteinuria, 2+ bacteriuria and 10-20 RBC. Urine output dropped. Past medical history mainly significant for coronary artery disease, previous CABG. prior history of bradycardia requiring temporary pacer. She remained intubated but off sedation, was responding by nodding head. Patient remained low on 2 pressor. Urine output 175 ml over last 4 hours. She is total positive more than 5 L. Slight increase in oxygen requirement with vent. Allergies Allergy/AdvReac Type Severity Reaction Status Date / Time No Known Drug Allergies Allergy Verified 01/29/25 13:59 Home Medications Medication Instructions Recorded Confirmed Type biotin 1 mg capsule 1 mg PO QDL 11/18/18 06/05/25 History coenzyme Q10 100 mg capsule 100 mg PO QAM 11/18/18 06/05/25 History (CoQ-10) omega 3 350 mg-dha 235 mg-epa 90 1 cap PO .EVERY 14 DAYS 11/18/18 06/05/25 History mg-fish oil 597 mg capsule,delay rel ([place]-3) multivitamin-ferrous 1 tab PO WK 11/24/18 06/05/25 History fumarate-folic acid 18 mg-400 mcg tablet (Daily Multivitamin with Iron) alendronate 70 mg tablet 70 mg PO Q7D 12/30/19 06/05/25 History aspirin 81 mg tablet,delayed 81 mg PO QAM 12/30/19 06/05/25 History release metronidazole 0.75 % topical cream 1 applic topical DAILY 01/01/23 06/05/25 History cholecalciferol (vitamin D3) 125 2,000 unit PO QDL 04/29/23 06/05/25 History mcg (5,000 unit) tablet (Vitamin D3) cyanocobalamin (vitamin B-12) 2,000 mcg sublingual QDL 04/29/23 06/05/25 History 5,000 mcg/mL sublingual drops (Vitamin B-12) nitroglycerin 0.4 mg sublingual 0.4 mg sublingual Q5M PRN chest 01/14/24 06/05/25 Rx tablet pain #25 tabs ezetimibe 10 mg tablet 10 mg PO QAM 06/03/25 06/05/25 History potassium chloride 10 mEq 10 meq PO BIDM 06/03/25 06/05/25 History tablet,extended release rosuvastatin 40 mg tablet 40 mg PO QDL 06/03/25 06/05/25 History Patient History Medical History Follow-up of acute inferior myocardial infarction Dysphagia Anemia Cardiogenic shock Acute hypotension Chest pain Acute CT Encounter for pre-operative examination Osteopenia Surgical History History of lumpectomy of right breast History of dilatation and curettage History of hysterectomy VAGINAL History of colonoscopy History of cataract surgery BILATERAL History of coronary artery bypass graft X2 VESSELS (22 YEARS AGO) History of cardiac cath NO STENTS (PRIOR TO CABG 22 YEARS AGO) Family History (Updated 06/05/25 @ 18:49 by Mario Taveras MD, PhD) Mother , at 88 years of age from natural causes. Family hx of colon cancer Father , at 68 years of age from COPD due to underlying chronic tobacco abuse. No problems noted. Social History (Updated 06/05/25 @ 18:55 by Mario Taveras MD, PhD) Smoking Status: Never smoker Second Hand Exposure: Yes; Do You Dip or Chew Tobacco: No; Hx Alcohol Use: No Hx Substance Use: No Preferred Language: Amharic Communication Ability: Unable Senior Counsel Commercial Required: No Beliefs That Will Affect Care: None marital status: marital status details: 1st marriage,10y;;2sons(58y;61y)well;1daughter(63y) ovarian CA. Current Living Situation: Spouse Current Living Situation Comment: 2nd marriage, 38y; happily ; no children living/. current occupational status: retired current occupation: Retired How many Children do You have: 2 How many Children do You have Comment: 2sons(58y,lives in [place];61y, lives in [place], [place], 4 adopted German kids)(see below): Other Information That Helps Us Care for You: No other: 17y gabriella steals;16y gabriella large calves;14y son cleftpalate;9y daug hiatalni Feels Safe at Home: Declines to Answer Assistive Devices: Cane and Walker Review of Systems Review of Systems: Unobtainable due to endotracheal tube Physical Exam Constitutional: WD/WN, vitals as above + ill appearing and + mechanically ventilated Eyes: + anicteric sclerae Respiratory: Auscultation: + diminished lung sounds and + crackles Cardiovascular: Rate/Rhythm: regular rate and regular rhythm Extremities: no edema Gastrointestinal (Abdomen): Inspection/Auscultation: abdomen normal to inspection Percussion/Palpation: abdomen soft; abdomen nontender Musculoskeletal: Extremities: extremities normal to inspection Skin: no rashes, warm and dry Neurologic: Intubated, could not be assessed Results & Data Vital Signs (Past 12 Hours) Vital Signs Temp Pulse Resp BP Pulse Ox O2 Del Method FiO2 06/07/25 08:05 Mechanical Vent 35 06/07/25 08:00 37.3 C 06/07/25 07:24 88 24 91 30 06/07/25 05:00 37.5 C 89 24 92 06/07/25 04:06 37.6 C H 83 18 93 06/07/25 03:18 37.7 C H 80 17 94 06/07/25 03:00 144/51 H 06/07/25 02:45 37.8 C H 84 22 100 06/07/25 02:31 95 H 26 H 94 30 06/07/25 02:06 38.0 C H 83 19 134/50 L 93 06/07/25 01:57 38.0 C H 85 26 H 93 06/07/25 01:00 37.9 C H 86 29 H 125/41 L 94 06/07/25 00:03 37.9 C H 89 22 123/51 L 93 06/07/25 00:00 88 06/06/25 23:45 37.9 C H 92 H 18 93 06/06/25 23:00 37.9 C H 84 21 131/41 L 94 PG Care Time/CCT Total # of Minutes Spent Total Time Spent with Patient: Total time spent is greater than 50% in coordination of care (as documented) at patient's floor/unit and/or counseling patient: Coding Level of Care Code 93085 INT INP/OBS CARE 3/75MIN Diagnoses ZORAN (acute kidney injury) N17.9 Acute hyponatremia E87.1 Hypocalcemia E83.51 Acute hepatic failure K72.[address] elevation myocardial infarction (STEMI) of inferior wall I21.19 Cardiogenic shock R57.0 Symptomatic bradycardia R00.1
[2025-06-07] MEDS: CALCIUM GLUCONATE 10% 1,000 MG in NS X1 BAG IV ONE (10:31)
[2025-06-07 11:15] LABS: Hematocrit (blood only) 24.8 % (37.0-47.0); Hemoglobin 8.5 g/dl (12.0-16.0)
--- NOTE | 2025-06-07 11:32 | Cardiology Progress Note ---
Date of Service June 07, 2025 Assessment & Plan (1) Syncope and collapse: Plan: Likely due to transient AV block in the setting of an RCA infarct. Currently conducting well without evidence of AV block. (2) ST elevation (STEMI) myocardial infarction: Plan: Recurrent inferior ST elevation [place] of the RCA. Successful PCI. 2 drug-eluting stents placed in the RCA. Overall LV function and. Adequate on her initial echocardiogram. However, still requiring significant pressor support. 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 Hopefully will see some improvement over the next 24 hours. Currently requiring more pressor support than yesterday. (3) CAD (coronary artery disease): Plan: Severe multivessel coronary disease. Prior two-vessel CABG with HANKS to LAD and SVG to diagonal/ramus. When hemodynamics improve we can continue her outpatient regimen for secondary prevention. (4) Hyperlipidemia: Plan: Patient is high risk. High intensity statin therapy with rosuvastatin and Zetia. (5) Hypertension: Plan: Currently hypotensive requiring 3 vasopressors. (6) Cardiogenic shock: Plan: Possibly a contribution from distributive shock given the fever. Also lower hemoglobin suggesting the possibility of bleeding. Retroperitoneal hemorrhage would be a concern. I would have a low threshold for transfusion given her hemodynamic difficulties. She may have an element of RV failure which is more difficult to treat. They tend to be volume dependent and she has been resuscitated adequately. They will continue her femoral lines for the time being, this will allow for continued rate support with atrial pacing and measurement of arterial pressures. Will discontinue amiodarone. Admission and Anticipated Discharge Date Admission Date: June 05, 2025 Subjective Patient intubated and sedated. Review of Systems Review of Systems: Unobtainable due to endotracheal tube Physical Exam Physical Exam: Intubated and sedated HEENT: Sclerae are anicteric. Lungs: Some coarse upper airway sounds. No expiratory wheezing. Cardiac: The rhythm was regular. S1 and S2 were normal. There are no murmurs on examination. Abdomen: The abdomen was soft and nontender. Extremities: Patient has bilateral radial pulses that are equal in intensity. There is no evidence cyanosis or clubbing. Right groin access site without hematoma or drainage. Skin: There are no rashes noted on examination today. Results & Data Vital Signs (Past 12 Hours) Vital Signs Temp Pulse Resp BP BP Pulse Ox O2 Del Method 06/07/25 11:20 116/49 L 06/07/25 11:03 118/47 L 06/07/25 10:35 116/47 L 06/07/25 10:20 121/49 L 06/07/25 10:02 124/50 L 06/07/25 09:28 90/38 L 06/07/25 09:25 106/39 L 06/07/25 09:05 96/39 L 06/07/25 09:00 99/40 L 06/07/25 08:05 Mechanical Vent 06/07/25 08:00 98 H 06/07/25 08:00 37.3 C 06/07/25 07:24 88 24 91 06/07/25 05:00 37.5 C 89 24 92 06/07/25 04:06 37.6 C H 83 18 93 06/07/25 03:18 37.7 C H 80 17 94 06/07/25 03:00 144/51 H 06/07/25 02:45 37.8 C H 84 22 100 06/07/25 02:31 95 H 26 H 94 06/07/25 02:06 38.0 C H 83 19 134/50 L 93 06/07/25 01:57 38.0 C H 85 26 H 93 06/07/25 01:00 37.9 C H 86 29 H 125/41 L 94 06/07/25 00:03 37.9 C H 89 22 123/51 L 93 06/07/25 00:00 88 06/06/25 23:45 37.9 C H 92 H 18 93 FiO2 06/07/25 11:20 06/07/25 11:03 06/07/25 10:35 06/07/25 10:20 06/07/25 10:02 06/07/25 09:28 06/07/25 09:25 06/07/25 09:05 06/07/25 09:00 06/07/25 08:05 35 06/07/25 08:00 06/07/25 08:00 06/07/25 07:24 30 06/07/25 05:00 06/07/25 04:06 06/07/25 03:18 06/07/25 03:00 06/07/25 02:45 06/07/25 02:31 30 08/04/25 02:06 06/07/25 01:57 06/07/25 01:00 06/07/25 00:03 06/07/25 00:00 06/06/25 23:45 Laboratory Results Abnormal Lab Results 06/05/25 06/05/25 06/05/25 13:55 14:24 14:26 WBC RBC Hgb POC Hgb Hct POC Hct MCV MCH MCHC RDW Std Deviation RDW Coeff of Randell Plt Count MPV Immature Gran % (Auto) Neut % (Auto) Lymph % (Auto) [place] % (Auto) Eos % (Auto) Baso % (Auto) Neut # (Auto) Lymph # (Auto) [place] # (Auto) Eos # (Auto) Baso # (Auto) Immature Gran # (Auto) Toxic Vacuolation Ovalocytes Echinocytes Acanthocytes (Spur) Activ Coag Time Kaolin 227 H 464 H 291 H Specimen Type POC pH POC pCO2 POC pO2 POC HCO3 POC Total CO2 POC Base Excess ABG pH (Temp Correct) ABG pCO2 (Temp Corrct POC ABG pO2 at Pt Temp POC ABG O2 Sat VBG pH VBG pCO2 VBG pO2 VBG HCO3 VBG O2 Saturation VBG Base Excess POC FiO2 POC Sodium Sodium POC Potassium Potassium Chloride Carbon Dioxide Anion Gap BUN Creatinine Est Cr Clr Drug Dosing eGFR BUN/Creatinine Ratio Glucose POC Glucose (other) Calcium Phosphorus Magnesium Total Bilirubin Direct Bilirubin AST ALT Alkaline Phosphatase Troponin I High Sens Total Protein Albumin 06/06/25 06/06/25 06/06/25 10:51 12:09 14:51 WBC 11.81 H RBC 3.65 L Hgb 10.8 L POC Hgb Hct 32.0 L POC Hct MCV 87.7 MCH 29.6 MCHC 33.8 RDW Std Deviation 48.3 H RDW Coeff of Randell 15.1 H Plt Count 180 MPV 11.0 Immature Gran % (Auto) 0.3 Neut % (Auto) 77.9 Lymph % (Auto) 11.6 [place] % (Auto) 9.8 Eos % (Auto) 0.1 Baso % (Auto) 0.3 Neut # (Auto) 9.20 H Lymph # (Auto) 1.37 [place] # (Auto) 1.16 H Eos # (Auto) 0.01 Baso # (Auto) 0.03 Immature Gran # (Auto) 0.04 Toxic Vacuolation Ovalocytes Echinocytes Acanthocytes (Spur) Activ Coag Time Kaolin Specimen Type POC pH POC pCO2 POC pO2 POC HCO3 POC Total CO2 POC Base Excess ABG pH (Temp Correct) ABG pCO2 (Temp Corrct POC ABG pO2 at Pt Temp POC ABG O2 Sat VBG pH VBG pCO2 VBG pO2 VBG HCO3 VBG O2 Saturation VBG Base Excess POC FiO2 POC Sodium Sodium POC Potassium Potassium Chloride Carbon Dioxide Anion Gap BUN Creatinine Est Cr Clr Drug Dosing eGFR BUN/Creatinine Ratio Glucose POC Glucose (other) 120 H Calcium Phosphorus Magnesium Total Bilirubin Direct Bilirubin AST ALT Alkaline Phosphatase Troponin I High Sens 54584.4 H* Total Protein Albumin 06/06/25 06/07/25 06/07/25 17:55 00:19 04:35 WBC RBC Hgb POC Hgb Hct POC Hct MCV MCH MCHC RDW Std Deviation RDW Coeff of Randell Plt Count MPV Immature Gran % (Auto) Neut % (Auto) Lymph % (Auto) [place] % (Auto) Eos % (Auto) Baso % (Auto) Neut # (Auto) Lymph # (Auto) [place] # (Auto) Eos # (Auto) Baso # (Auto) Immature Gran # (Auto) Toxic Vacuolation Ovalocytes Echinocytes Acanthocytes (Spur) Activ Coag Time Kaolin Specimen Type POC pH POC pCO2 POC pO2 POC HCO3 POC Total CO2 POC Base Excess ABG pH (Temp Correct) ABG pCO2 (Temp Corrct POC ABG pO2 at Pt Temp POC ABG O2 Sat VBG pH 7.32 L VBG pCO2 28 L VBG pO2 76 VBG HCO3 14 VBG O2 Saturation 98.6 VBG Base Excess -10.2 POC FiO2 POC Sodium Sodium 130 L POC Potassium Potassium 3.8 Chloride 107 Carbon Dioxide 15 L Anion Gap 8 BUN 25 H Creatinine 2.37 H D Est Cr Clr Drug Dosing 16.7 eGFR 19.60 BUN/Creatinine Ratio 10.5 Glucose 125 H POC Glucose (other) 139 H 133 H Calcium 7.1 L Phosphorus 4.7 D Magnesium 1.5 L Total Bilirubin 1.0 Direct Bilirubin 0.3 H AST 65 H ALT 80 H Alkaline Phosphatase 40 Troponin I High Sens Total Protein 4.4 L Albumin 2.7 L 06/07/25 06/07/25 06/07/25 04:38 09:48 10:51 WBC 5.90 RBC 3.13 L Hgb 9.4 L 8.5 L POC Hgb 6.1 L* Hct 27.1 L 24.8 L POC Hct 18 L* MCV 86.6 MCH 30.0 MCHC 34.7 RDW Std Deviation 48.7 H RDW Coeff of Randell 15.3 H Plt Count 145 MPV 11.3 Immature Gran % (Auto) 0.3 Neut % (Auto) 77.0 Lymph % (Auto) 13.4 [place] % (Auto) 9.0 Eos % (Auto) 0.0 Baso % (Auto) 0.3 Neut # (Auto) 4.54 Lymph # (Auto) 0.79 L [place] # (Auto) 0.53 Eos # (Auto) 0.00 Baso # (Auto) 0.02 Immature Gran # (Auto) 0.02 Toxic Vacuolation 1+ Ovalocytes 1+ Echinocytes 2+ Acanthocytes (Spur) 3+ Activ Coag Time Kaolin Specimen Type Arterial POC pH 7.40 POC pCO2 24 L POC pO2 62 L POC HCO3 15 L POC Total CO2 15 L POC Base Excess -10.0 L ABG pH (Temp Correct) 7.377 ABG pCO2 (Temp Corrct 25 L POC ABG pO2 at Pt Temp 68 POC ABG O2 Sat 92.0 VBG pH VBG pCO2 VBG pO2 VBG HCO3 VBG O2 Saturation VBG Base Excess POC FiO2 35 POC Sodium 133 L Sodium POC Potassium 3.5 Potassium Chloride Carbon Dioxide Anion Gap BUN Creatinine Est Cr Clr Drug Dosing eGFR BUN/Creatinine Ratio Glucose POC Glucose (other) Calcium Phosphorus Magnesium Total Bilirubin Direct Bilirubin AST ALT Alkaline Phosphatase Troponin I High Sens Total Protein Albumin PG Care Time/CCT Total # of Minutes Spent Total Time Spent with Patient: Total time spent is greater than 50% in coordination of care (as documented) at patient's floor/unit and/or counseling patient: Coding Level of Care Code 87955 SUB INP/OBS CARE 2/35MIN Diagnoses Syncope and collapse R55 ST elevation myocardial infarction involving right coronary artery I21.11 Involved coronary artery: right coronary artery Coronary artery disease involving [place] coronary artery of [place] heart with angina pectoris I25.119 Coronary Disease-Associated Artery/Lesion type: [place] artery [place] vs. transplanted heart: [place] heart Associated angina: with unspecified form of angina Hyperlipidemia E78.5 Hypertension I10 Cardiogenic shock R57.0 (2) ST elevation (STEMI) myocardial infarction Involved coronary artery: right coronary artery Qualified Code(s): I21.11 - ST elevation (STEMI) myocardial infarction involving right coronary artery (3) CAD (coronary artery disease) Coronary Disease-Associated Artery/Lesion type: [place] artery [place] vs. transplanted heart: [place] heart Associated angina: with unspecified form of angina Qualified Code(s): I25.119 - Atherosclerotic heart disease of [place] coronary artery with unspecified angina pectoris
--- NOTE | 2025-06-07 14:15 | Hospitalist Progress Note ---
Date of Service June 07, 2025 Assessment & Plan (1) Acute ST elevation myocardial infarction (STEMI) of inferior wall: Plan: To address #1, patient underwent emergent cardiac catheterization (06/05/2025, 1:04pm, [facility] Interventional CARDS Dr. Amari Valles) with successful deployment of "2 overlapping drug-eluting stents in the mid and distal RCA covering the previous stent which seemed to harbor thrombus after the angioplasty portion of the procedure." Patient subsequently was loaded with plavix 600mg PO x 1 dose (06/05/2025, 2:54pm) and will start plavix 75mg PO daily (06/06/2025, 9:00am) and continue with her home-scheduled ASA 81mg PO daily (06/06/2025, 9:00am); patient will then continue with both plavix 75mg PO daily and ASA 81mg PO daily for the rest of her life. Patient will also continue with her home-scheduled, high intensity dose rosuvastatin 40mg PO daily and ezetimibe 10mg PO daily. Patient was also started on integrilin 20mg in 6.8 mL IV x 1 dose (first bolus administered on 06/05/2025, 3:38pm), followed by integrilin 20mg in 6.8 mL IV x 1 dose (second bolus administered on 06/05/2025, 3:39pm), followed by integrilin infusion @ 2.06 ug/kg/min (06/05/2025, 6:06pm) for 18 hours, followed by its discontinuation on 06/06/2025, 9:00am. Of final note, patient is being held OFF her home-scheduled metoprolol succinate 12.5mg PO qhs given potential for this medication to cause further bradycardia and/or hypotension. Patient is also not being started on either SHER inhibitor and/or ARB given the potential for either medication to cause further hypotension and/or acute renal injury/failure. cf., admission creatinine 1.19 mg/dL, GFR 44.8 mL/min (06/05/2025, 12:27pm). cf., TTE (06/05/2025, 3:54pm): 1. LV EF 60-65%. Regional wall motion abnormalities including mild hypokinesis of inferior wall from base to mid ventricle. 2. RV ventricle mildly dilated with RV systolic function moderately reduced. 3. LA size normal. 4. MV anatomy normal. 5. Very small posterior pericardial effusion. (as per CARDS Dr. Bran Field). 06/06/2025: Patient continues to receive plavix 75mg PO daily, ASA 81mg PO daily, rosuvastatin 40mg PO daily, and ezetimibe 10mg PO daily. 06/07/2025: Patient continues to receive plavix 75mg PO daily, ASA 81mg PO daily, rosuvastatin 40mg PO daily, and ezetimibe 10mg PO daily. (2) Cardiogenic shock: Plan: To address #2, patient was started on dual pressor support utilizing norepinephrine 4mg IV x 1 dose (06/05/2025, 2:50pm), followed by norepinephrine infusion @ 0.2ug/kg/min (06/05/2025, 4:08pm) and dopamine infusion @ 7.5ug/kg/min (06/05/2025, 3:30pm), as well as 1 liter of 0.9% NS @ 75 mL/hr (06/05/2025, 4:26pm), all to maintain MAP > 65 mm Hg, and to "Gradually wean these down. Since we were relatively quick in getting reperfusion I am hopeful that she will be able to maintain blood pressure without vasopressors by tomorrow." (as per [facility] Interventional CARDS Dr. Amari Valles) on 06/05/2025. In addition, patient was also loaded with anti-arrhythmic agent amiodarone 300mg IV x 1 dose (06/05/2025, 3:37pm), followed by amiodarone 150mg IV x 1 dose @ 600 mL/hr (06/05/2025, 4:09pm), followed by amiodarone infusion @ 1mg/min (06/05/2025, 4:27pm), to prophylax against potential ventricular arrhythmias that may arise post-cardiac catheterization in this patient with recurrent acute inferior wall STEMI and cardiogenic shock. 06/06/2025: Patient still requires dual pressor support utilizing norepinephrine infusion @ 0.2ug/kg/min (06/06/2025, 10:22am) and dopamine infusion @ 5ug/kg/min (06/06/2025, 3:18am). Patient also continues to receive amiodarone infusion @ 0.5mg/min (06/06/2025, 10:21am). 06/07/2025: Patient now requires triple pressor support (to maintain MAP > 65 mm Hg) with: 1. norepinephrine (start date/time 06/05/2025, 4:08pm, [facility], 0.36 ug/kg/min (06/07/2025, 1:31pm). 2. epinephrine (start date/time, 06/07/2025, 9:47am, [facility] ICU bed #[id number], 0.02 ug/kg/min). 3. vasopressin (start date/time, 06/07/2025, 9:24am, [facility] ICU bed #[id number], 0.04 units/min), OFF dopamine gtt (start date/time, 06/05/2025, 3:30pm, [facility]; stop date/time, 06/07/2025, 9:24am, [facility] ICU bed #[id number]). (3) Acute tubular necrosis: Plan: Patient's renal function continues to worsen: cf., BUN 19, creatinine 1.19, GFR 44.8 (06/05/2025, 12:27pm). cf., BUN 25, creatinine 2.04, GFR 23.5 (06/06/2025, 5:11am). cf., BUN 25, creatinine 2.37, GFR 19.6 (06/07/2025, 4:35am). Etiology of acute renal injury is attributed to acute tubular necrosis, which in turn, is due to acute cardiogenic shock, which in turn, is due to acute inferior wall STEMI. In addition, patient's nominal urine output parallels the patient's worsening renal function with a recorded urine output of 0.35 mL/kg/hr (06/06/2025, 7:17am through 06/07/2025, 7:17am). Hence, patient now requires triple pressor support (to maintain MAP > 65 mm Hg) with: 1. norepinephrine (start date/time 06/05/2025, 4:08pm, [facility], 0.36 ug/kg/min (06/07/2025, 1:31pm). 2. epinephrine (start date/time, 06/07/2025, 9:47am, [facility] ICU bed #[id number], 0.02 ug/kg/min). 3. vasopressin (start date/time, 06/07/2025, 9:24am, [facility] ICU bed #[id number], 0.04 units/min), OFF dopamine gtt (start date/time, 06/05/2025, 3:30pm, [facility]; stop date/time, 06/07/2025, 9:24am, [facility] ICU bed #[id number]). Hopefully, this triple pressor support strategy will augment renal perfusion, and thereby increase urine output over the next 24-48 hours. Stay tuned. cf., Renal Service of Dr. Cristiana Garcia (06/07/2025, 10:24am): "If urine output remains low, recommend a trial of IV Bumex 2 mg x 1 dose. Check electrolyte in the afternoon. If any critical electrolyte abnormality and urine output remains low, may need to consider dialysis. However, with her hemodynamic instability, intermittent hemodialysis may not be tolerated. May need to consider transferring to tertiary care facility for CRRT if dialysis needed." (4) Acute hepatic failure: Plan: Patient's transaminase levels have increased: cf., AST 27, ALT 27, ALK PHOS 36, TBili 1.3, albumin 4.0 (06/05/2025, 12:27pm). cf., AST 167, ALT 135, ALK PHOS 31, TBili 0.8, albumin 2.8 (06/06/2025, 5:11am). cf., AST 65, ALT 80, ALK PHOS 40, TBili 1.0, albumin 2.7 (06/07/2025, 4:35am). Patient's liver's synthetic function remains intact: cf., INR 1.0 (06/05/2025, 12:27pm). cf., INR 1.0 (06/06/2025, 6:22am). Hence, I surmise that patient does not suffer from acute hepatic failure as of now, but may develop acute hepatic failure in the day(s) to come, which in turn, is due to acute cardiogenic shock, which in turn, is due to acute inferior wall STEMI. Hence, patient now requires triple pressor support (to maintain MAP > 65 mm Hg) with: 1. norepinephrine (start date/time 06/05/2025, 4:08pm, [facility], 0.36 ug/kg/min (06/07/2025, 1:31pm). 2. epinephrine (start date/time, 06/07/2025, 9:47am, [facility] ICU bed #[id number], 0.02 ug/kg/min). 3. vasopressin (start date/time, 06/07/2025, 9:24am, [facility] ICU bed #[id number], 0.04 units/min), OFF dopamine gtt (start date/time, 06/05/2025, 3:30pm, [facility]; stop date/time, 06/07/2025, 9:24am, [facility] ICU bed #[id number]). Hopefully, this triple pressor support strategy willl augment hepatic perfusion, and thereby mitigate further transaminase elevation(s) over the next 24-48 hours, hopefully. Stay tuned. (5) Acute hyponatremia: Plan: Patient's sodium level has declined: cf., Na 140 mmol/L (06/05/2025, 12:27pm). cf., Na 132 mmol/L (06/06/2025, 5:11am). cf., Na 130 mmol/L (06/07/2025, 4:35am). cf., Na 133 mmol/L (06/07/2025, 9:48am). Etiology of acute hyponatremia is probably due to a combination of (a) acute dehydration in the NPO state due to mechanical intubation/ventilation on Assist Control with TV 400 mL, RR 19 breaths/minute, PEEP 5 cm H2O, and FIO2 = 0.3 (06/06/2025, 10:25am); and/or (b) SIADH in the setting of acute RV systolic CHF, which in turn, is due to acute cardiogenic shock, which in turn, is due to acute inferior wall STEMI. Hence, patient has already received 1 liter of 0.9% NS @ 75 mL/hr (start date/time, 06/05/2025, 4:26pm) and continues to receive 1 liter of 0.9% NS @ 75 mL/hr (start date/time, 06/06/2025, 4:42am) to mitigate further declines in Na levels over the next 24-48 hours, hopefully. Stay tuned. (6) Hypocalcemia: Plan: Patient's calcium level has declined: cf., Ca 9.1, albumin 4.0, Ca corrected 9.1 (06/05/2025, 12:27pm). cf., Ca 6.8, albumin 2.8, Ca corrected 7.8 (06/06/2025, 5:11am). cf., Ca 7.1, albumin 2.7, Ca corrected 8.1 (06/07/2025, 4:35am). Etiology of acute hypocalcemia is probably due to acute dehydration in the NPO state due to mechanical intubation/ventilation. Hence, patient has already received calcium gluconate 1g IV x 3 doses (06/06/2025, 6:00am, 6:35am, and 6:49am). Hence, patient has already received calcium gluconate 1g IV x 1 dose (06/07/2025, 10:31am) to mitigate further declines in Ca levels over the next 24-48 hours, hopefully. Stay tuned. (7) Hypomagnesemia: Plan: Patient's magnesium level has declined: cf., Mg 2.2 (06/05/2025, 6:05am). cf., Mg 2.1 (06/06/2025, 12:27pm). cf., Mg 1.5 (06/07/2025, 4:35am). Etiology of acute hypomagnesemia is probably due to acute dehydration in the NPO state due to mechanical intubation/ventilation. Hence, patient has already received magnesium sulfate 1g IV x 3 doses (06/07/2025, 8:24am, 10:06am, 12:10pm). Hence, patient will receive magnesium sulfate 1g IV x 1 dose (06/07/2025, ) to mitigate further declines in Mg levels over the next 24-48 hours, hopefully. Stay tuned. (8) Acute hypokalemia: Plan: Patient's potassium level has declined: cf., K 4.5 (06/05/2025, 12:27pm). cf., K 3.4 (06/06/2025, 5:11am). cf., K 3.8 (06/07/2025, 4:35am). cf., K 3.5 (06/07/2025, 9:48am). Etiology of acute hypokalemia is probably due to acute dehydration in the NPO state due to mechanical intubation/ventilation. Hence, patient has already received potassium chloride 40meq PO x 1 dose (06/06/2025, 9:07am). Hence, patient has already received potassium chloride 20meq IV x 1 dose (06/07/2025, 8:44am) to mitigate further declines in K levels over the next 24- 48 hours, hopefully. Stay tuned. (06/07/2025, 9:48am). (9) Symptomatic bradycardia: Plan: To address #8, patient was continued on classroom monitor in ICU bed #E109-1 on admission date 06/05/2025. Continue transvenous PPM in situ as needed, as recommended by [facility] Interventional CARDS Dr. Amari Valles, on 06/05/2025, and who also recommends "that as we titrate down her vasopressor support we keep the transvenous pacemaker in place as she may become profoundly bradycardic without dopamine and norepinephrine. Then, we could start to titrate down the pacer to see if she can sustain a sinus rhythm long-term. She has had more than 1 m yocardial infarction in the RCA distribution and I am concerned that she will eventually require permanent pacemaker particularly for us to optimize her medical therapy." 06/06/2025: Patient is not bradycardic with HR 80 bpm (06/06/2025, 10:25am). Continue classroom monitor and transvenous PPM in situ as needed. 06/07/2025: Patient is not bradycardic with HR 80 bpm (06/07/2025, 1:53pm). Continue classroom monitor and transvenous PPM in situ as needed. Plan Code status, FULL CODE @ home. ACLS as required. Condition of patient remains tenuous on 06/06/2025 and on 06/07/2025, and is contingent on patient demonstrating recovery of renal function/urine output to at least 30 mL/kg/hr. cf., previous urine output of 0.09 mL/kg/hr (06/05/2025, 11:42am to 06/06/2025, 11:42am). cf., current urine output of 0.35 mL/kg/hr (06/06/2025, 7:17am to 06/07/2025, 7:17am). Admission and Anticipated Discharge Date Admission Date: June 05, 2025 Subjective Patient is non-verbal due to intubation, but can respond with her head and her eyes in a "yes" or "no" manner to questions as patient is currently off sedation (e.g., propofol) on 06/06/2025, 12:14pm. Patient denies antecedent/coincident fevers, chills, diaphoresis, cough, wheeze, sore throat, hemoptysis, shortness of breath, dyspnea on exertion, chest pains, palpitations, pleurisy, nausea, vomiting, diarrhea, abdominal pain, pelvic pain, hematemesis, hematochezia, melena, hematuria, dysuria, frequency, urgency, headaches, dizziness, lightheadedness, visual changes, hearing changes, weakness, falls, syncope, trauma, travel history, sick contacts, or food/drug ingestions novel or new. All other review of systems are reported as negative by the patient on 06/07/2025. Review of Systems Constitutional: As stated above in the Subjective section of this 06/07/2025 Hospitalist Progress note. Physical Exam Physical Exam: General appearance: Run-down, worn-out, NOT diaphoretic at all on 06/07/2025, 1:29pm. Wide awake and alert. Not confused, lethargic, or obtunded. Patient is non-verbal due to intubation, but can respond with her head and her eyes in a "yes" or "no" manner to questions as patient is currently off sedation (e.g., propofol) on 06/07/2025, 1:29pm. Intubated (06/05/2025, 1:24pm, [facility] ER, Critical Care Dr. Roman Veliz), on Assist Control with TV 400, RR 16, PEEP 6, FIO2 0.35, on triple pressor support with: 1. norepinephrine (start date/time 12/2024, 4:08pm, [facility] ER) 2. epinephrine (start date/time, 0 06/07/2025, 9:47am, [facility] ICU bed #[id number]) 3. vasopressin (start date/time, 0 06/07/2025, 9:24am, [facility] ICU bed #[id number]) OFF dopamine gtt (start date/time, 06/05/2025, 3:30pm, [facility] ER; stop date/time, 06/07/2025, 9:24am, [facility] ICU bed #[id number]). HEENT: Normocephalic; atraumatic. EOMI. PERRL. Neck: Supple, no stridor, bruit, goiter, JVD, or HJR. Left subclavian central venous catheter in situ (06/05/2025, 1;24pm, [facility] ER, Critical Care Dr. Roman Veliz). Lymph: No lymphadenopathy. Chest: Symmetric rise and fall with respirations. Non-tender to palpation. Lungs: Clear to auscultation and percussion. No audible wheeze, pectoriloquy, increase in tactile fremitus, or flatness/dullness to percussion at the bases. Heart: RRR, S1S2, no S3 or S4. Grade II/ early systolic murmur @ LLSB without radiation to the carotids, axilla, or back, and which remains invariant in regards to the respiratory cycle. Abd: Soft, non-tender, non-distended. No rebound, guarding, Mota's sign, or organomegaly. Bowel sounds auscultated in all 4 quadrants. Ext: No clubbing, cyanosis, or edema. 2+ pedal pulses bilaterally. Skin: No decubitus ulcer, exanthem, or enanthem. Neuro: Alert and oriented in regards to person, place, time, or situation. No myoclonus, tremors, or tics. Urology: + card catheter with urine output 0.35 mL/kg/hr (06/06/2025, 7:17am through 06/07/2025, 7:17am). No urethral discharge. Psych: No suicidal ideation. No homicidal ideation. Results & Data Results & Data Vital Signs (Past 12 Hours) Vital Signs Temp Pulse Resp BP BP Pulse Ox O2 Del Method 06/07/25 12:20 99/42 L 08/04/25 12:00 80 06/07/25 11:55 123/48 L 06/07/25 11:20 116/49 L 06/07/25 11:09 80 26 H 92 06/07/25 11:03 38.2 C H 80 28 H 91 06/07/25 11:03 118/47 L 06/07/25 10:35 116/47 L 06/07/25 10:20 121/49 L 06/07/25 10:09 38.3 C H 80 25 H 92 06/07/25 10:02 124/50 L 06/07/25 09:28 90/38 L 06/07/25 09:25 106/39 L 06/07/25 09:05 96/39 L 06/07/25 09:01 102/43 L 06/07/25 09:01 102/43 L 06/07/25 09:00 38.9 C H 88 28 H 93 06/07/25 09:00 99/40 L 06/07/25 08:05 Mechanical Vent 06/07/25 08:03 38.4 C H 98 H 31 H 87 L 06/07/25 08:00 153/54 H 06/07/25 08:00 153/54 H 06/07/25 08:00 153/54 H 06/07/25 08:00 06/07/25 08:00 Mechanical Vent 06/07/25 08:00 98 H 06/07/25 08:00 37.3 C 06/07/25 07:42 38.0 C H 92 H 26 H 90 06/07/25 07:24 88 24 91 06/07/25 07:00 37.6 C H 93 H 26 H 92 Mechanical Vent 06/07/25 05:00 37.5 C 89 24 92 06/07/25 04:06 37.6 C H 83 18 93 06/07/25 03:18 37.7 C H 80 17 94 06/07/25 03:00 144/51 H 06/07/25 02:45 37.8 C H 84 22 100 06/07/25 02:31 95 H 26 H 94 06/07/25 02:06 38.0 C H 83 19 134/50 L 93 06/07/25 01:57 38.0 C H 85 26 H 93 O2 Flow Rate FiO2 06/07/25 12:20 06/07/25 12:00 06/07/25 11:55 06/07/25 11:20 06/07/25 11:09 35 06/07/25 11:03 06/07/25 11:03 06/07/25 10:35 06/07/25 10:20 06/07/25 10:09 06/07/25 10:02 06/07/25 09:28 06/07/25 09:25 06/07/25 09:05 06/07/25 09:01 06/07/25 09:01 06/07/25 09:00 06/07/25 09:00 06/07/25 08:05 35 06/07/25 08:03 06/07/25 08:00 06/07/25 08:00 06/07/25 08:00 06/07/25 08:00 30 06/07/25 08:00 30 06/07/25 08:00 06/07/25 08:00 06/07/25 07:42 06/07/25 07:24 30 06/07/25 07:00 30 06/07/25 05:00 06/07/25 04:06 06/07/25 03:18 06/07/25 03:00 06/07/25 02:45 06/07/25 02:31 30 06/07/25 02:06 06/07/25 01:57 Laboratory Results Troponin-I #1 140.8 pg/mL (06/05/2025, 12:27pm). Troponin-I #2 3027.8 pg/mL (06/05/2025, 4:25pm). Troponin-I #3 10,476.0 pg/mL (06/05/2025, 11:14pm). Troponin-I #4 15,668.7 pg/mL (06/06/2025, 5:11am). Troponin-I #5 15,258.4 pg/mL (06/06/2025, 10:51am). WBC 5.74, N46 L39 M11 E3 B1, Hb 13.7, MCV 89.2, MCHC 32.8, platelet 184 (06/05/2025, 12:27pm). WBC 20.37, N83 L13 M 2 E1, Hb 13.6, MCV 92.4, MCHC 31.9, platelet 227 (06/05/2025, 4:25pm). WBC 11.97, N72 L15 M13, Hb 10.9, MCV 89.4, MCHC 32.4, platelet 182 (06/06/2025, 5:11am). WBC 11.81, N78 L12 M10, Hb 10.8, MCV 87.7, MCHC 33.8, platelet 180 (06/06/2025, 2:51pm). WBC 5.90, N77 L13 M 9, Hb 8.5, MCV 86.6, MCHC 34.7, platelet 145 (06/07/2025, 4:38am). Hb 6.1 (06/07/2025, 9:48am). Hb 8.5 (06/07/2025, 10:51am). U/A (06/05/2025, 7:30pm): cloudy yellow, LE-, nitrite-, WBC 21-50, RBC 11-20, epithelial cells 3-5, bacteria 2+ Urine culture (06/05/2025, 7:30pm): negative Blood culture #1 (06/07/2025, 10:13am): Blood culture #2 (06/07/2025, 10:51am): INR 1.0 (06/05/2025, 12:27pm). INR 1.0 (06/06/2025, 6:22am). Na 140, K 4.5, CO2 26, BUN 19, creatinine 1.19, GFR 44.8, glucose 120, Ca 9.1, Mg 2.1, AST 27, ALT 27, ALK PHOS 36, TBili 1.3, albumin 4.0 (06/05/2025, 12:27pm). Na 132, K 3.4, CO2 16, BUN 25, creatinine 2.04, GFR 23.5, glucose 160, Ca 6.8, PO4 2.8, AST 167, ALT 135, ALK PHOS 31, TBili 0.8, albumin 2.8 (06/06/2025, 5:11am). Na 130, K 3.8, CO2 15, BUN 25, creatinine 2.37, GFR 19.6, glucose 125, Ca 7.1, PO4 4.7, AST 65, ALT 80, ALK PHOS 40, TBili 1.0, albumin 2.7 (06/07/2025, 4:35am). K 3.5 (06/07/2025, 9:48am). Mg 2.2 (06/05/2025, 6:05am). Mg 2.1 (06/06/2025, 12:27pm). Mg 1.5 (06/07/2025, 4:35am). TSH 5.936 uIU/mL (06/05/2025, 12:27pm). Free T4 0.71 ng/dL (06/05/2025, 12:27pm). MRSA nares PCR negative (06/05/2025, 5:20pm). ABG 7.35 / 26 / 94 / 14 / O2 sat 97% on FIO2 = 0.30 (06/06/2025, 6:11am). ABG 7.40 / 24 / 62 / 15 / O2 sat 92% on FIO2 = 0.35 (06/07/2025, 4:35am). Diagnostic Findings Portable CXR (06/05/2025, 1:11pm): Cardiomegaly with pulmonary vascular congestion. No infiltrate, effusion, or pneumothorax (by my review). EKG #1 (06/05/2025, 12:23pm): sinus bradycardia @ 45, SD 176, QTC 442, 2mm ST elevation in III; 0.5mm ST elevation in aVF; 1mm ST depression in I, aVL; 1.5mm ST depression in V2; TWI in V3, V4, V5, V6; no q waves (by my review). EKG #2 (06/05/2025, 12:29pm): sinus bradycardia @ 51, SD 196, QTC 451, 5mm ST elevation in III; 4mm ST elevation in aVF; 2mm ST elevation in II; 1mm ST depression in aVL; 5mm ST depression in V2; (by my review). 1mm ST elevations in V3, V4, V5, V6; 2mm ST depression in I; no q waves EKG #3 (06/05/2025, 2:00pm): normal sinus @ 80, SD 132, QTC 422, no ST elevations; 1mm ST depression in V5, (by my review). no q waves TTE (06/05/2025, 3:54pm): 1. LV EF 60-65%. Regional wall motion abnormalities including mild hypokinesis of inferior wall from base to mid ventricle. 2. RV ventricle mildly dilated with RV systolic function moderately reduced. 3. LA size normal. 4. MV anatomy normal. 5. Very small posterior pericardial effusion. (as per CARDS Dr. Bran Field). KUB (06/06/2025, 10:36am): 1. Enteric tube is in place. 2. No radiographic evidence of bowel obstruction. Portable CXR (06/07/2025, 6:00am): 1. Blunted left costophrenic angle, suggestive of pleural effusion. Interval imp rovement. 2. ETT is away from the estee about 2.8 cm. 3. Nasogastric tube seen passing below the left hemidiaphragm, with its tip not within the field of view. 4. Left CVL is noted, the tip in right atrium. Unchanged. PG Care Time/CCT Total # of Minutes Spent Total Time Spent with Patient: Total time spent is greater than 50% in coordination of care (as documented) at patient's floor/unit and/or counseling patient: Coding Level of Care Code 45663 SUB INP/OBS CARE 3/50MIN Diagnoses Acute ST elevation myocardial infarction (STEMI) of inferior wall I21.19 Cardiogenic shock R57.0 Acute tubular necrosis N17.0 Acute hepatic failure K72.00 Acute hyponatremia E87.1 Hypocalcemia E83.51 Hypomagnesemia E83.42 Acute hypokalemia E87.6 Symptomatic bradycardia R00.1
[2025-06-07 14:44] LABS: Hematocrit (blood only) 24.0 % (37.0-47.0); Hemoglobin 8.1 g/dl (12.0-16.0)
[2025-06-07 15:05] LABS: INR 1.3 (0.9-1.1); Prothrombin Time 13.7 Seconds (9.0-12.0)
--- NOTE | 2025-06-07 15:42 | CT Scan Report ---
CT SCAN OF THE ABDOMEN AND PELVIS WITHOUT IV CONTRAST CLINICAL HISTORY: Anemia. Clinical concern for retroperitoneal hemorrhage. COMPARISON STUDY: Abdominal x-ray dated 06/06/2025. TECHNIQUE: CT scan of the abdomen and pelvis is performed from the lung bases to the proximal femora. Images are reviewed in the axial, sagittal, and coronal planes. IV contrast was not administered for this examination. A dose lowering technique was utilized adhering to the principles of ALARA. CT DOSE: 1419.09 mGy.cm FINDINGS: Lung bases: Decision venous catheter terminates in the right atrium. The patient is status post midli ne sternotomy. The heart is enlarged and without pericardial effusion. The coronary arteries are calc ified. Pacemaker leads are in place, likely from a femoral approach. There is diminished attenuation of the cardiac blood pool as compared to the myocardium suggesting anemia. There are small pleural ef fusions with dependent consolidation. Liver: The unenhanced liver is normal in size, contour, and attenuation. There is no intrahepatic elis iary ductal dilatation. Gallbladder: The gallbladder is distended but otherwise normal as imaged. Spleen: Normal in size and attenuation. Pancreas: The unenhanced pancreas is mildly atrophic and grossly unremarkable. Adrenal glands: Unremarkable. Kidneys: The unenhanced kidneys are normal in size and without hydronephrosis. There is retained grayson ical contrast seen in both kidneys, with residual excreted contrast within the renal collecting syste ms and ureters. This degrades assessment for renal calculi. Left renal cysts measure up to 5.6 cm ramón meter. A retroaortic left renal vein is incidentally noted. Abdominal vasculature: The abdominal aorta is normal in course and caliber noting advanced atheroscle rotic calcification. Right femoral approach arterial and venous catheters are in place. Bowel: An enteric tube terminates in the distal stomach. A rectal temperature probe is in place. No b owel obstruction is seen. There is moderate to advanced colonic diverticulosis without CT evidence of acute diverticulitis. The colon is decompressed. The appendix is well-visualized and normal. Peritoneum/retroperitoneum: There is trace pelvic ascites. No intraperitoneal free air is seen. There is no evidence of intraperitoneal or retroperitoneal hemorrhage as clinically queried. There is a fa t-containing umbilical hernia. Lymphadenopathy: None. Pelvic viscera: Evaluation of the pelvis is degraded by streak artifact from a right hip arthroplasty . The bladder is partially decompressed around a Sofia catheter. Intraluminal gas is likely related t o rotation. The bladder contains excreted IV contrast. There is a fat-containing left groin hernia. T he uterus is surgically absent. A 2.5 cm simple cystic focus is seen in the right ovary on image #61. Infiltration in the right groin is likely related to instrumentation. No hematoma is seen. Skeletal structures: The skeletal structures are osteopenic. There is mild/moderate lumbosacral spond ylosis. Grade 1 anterolisthesis is noted at L4-L5. Sclerotic change is noted in the sacroiliac joints . Sclerotic change and bony overgrowth is seen at the pubic symphysis. No lytic or blastic lesions ar e seen. A right hip arthroplasty is in place. IMPRESSION: 1. There is no evidence of intraperitoneal or retroperitoneal hemorrhage as clinically queried. 2. Cardiomegaly and cardiac pacemaker. 3. Small pleural effusions with dependent consolidation. 4. There is retained cortical contrast seen in both kidneys, as well as residual contrast within the collecting systems. This suggests acute renal injury. Correlate with clinical and laboratory findings . 5. Colonic diverticulosis without CT evidence of acute diverticulitis. 6. Small volume pelvic ascites. 7. Additional findings as above. ACT 112: Negative or not required by law. Electronically signed by: Myles Ramirez M.D. 06/07/2025 3:40 PM
[2025-06-07] MEDS: HYDROCORTISONE SOD 100 MG in SYRINGE 0 ML IV STA (15:45)
[2025-06-07] MEDS: Nursing to Pharmacy Communication SCH (18:18)
[2025-06-07] MEDS: HYDROCORTISONE SOD 50 MG in SYRINGE 0 ML IV SCH (22:33)
[2025-06-08 04:27] LABS: Alanine Aminotransferase 56.0 U/L (7-52); Alkaline Phosphatase 39.0 U/L (34-104); Anion Gap 9.0 (3-11); Bilirubin,Total 1.0 mg/dl (0.2-1.0); Blood Urea Nitrogen 24.0 mg/dl (6-23); Calcium 7.2 mg/dl (8.6-10.3); Carbon Dioxide 19.0 mmol/L (21-32); Chloride 105.0 mmol/L (98-107); Creatinine Clr Calc Pharmacy 19.5 ml/min; Glucose 122.0 mg/dl (70-99(Fasting)); Magnesium 2.3 mg/dl (1.7-2.4); Potassium 3.7 mmol/L (3.5-5.1); Sodium 133.0 mmol/L (136-145); Total Protein 4.4 gm/dl (6.0-8.3)
[2025-06-08 04:28] LABS: Hematocrit (blood only) 23.4 % (37.0-47.0); Hemoglobin 7.9 g/dl (12.0-16.0); Mean Corpuscular Hemoglobin 29.3 pg (25.0-34.0); Mean Corpuscular Volume 86.7 fL (80.0-100.0); Platelet Count 102 K/uL (130-400); RDW Standard Deviation 48.7 fL (36.4-46.3); Red Blood Count 2.70 M/uL (4.20-5.40); White Blood Count 5.90 K/ul (4.8-10.8)
[2025-06-08] MEDS: POTASSIUM CHLORIDE 20 MEQ/15 ML UDC PO STA (06:00)
[2025-06-08] MEDS: HEPARIN SOD 5,000 UNIT/0.5 ML VIAL SQ SCH (06:00)
[2025-06-08 06:29] LABS: Acanthocytes 1+; Dohle Bodies 1+; Immature Granulocytes # (auto) 0.08 K/uL (0.01-0.20); Immature Granulocytes % (auto) 1.4 %; Ovalocytes 1+; Polychromasia 1+; Toxic Vacuolation 1+
--- NOTE | 2025-06-08 07:30 | Critical Care Progress Note ---
Date of Service June 08, 2025 Assessment & Plan (1) Acute hyponatremia: (2) Acute tubular necrosis: (3) Acute ST elevation myocardial infarction (STEMI) of inferior wall: (4) Complete heart block, transient: (5) Syncope and collapse: (6) Chronic diastolic CHF (congestive heart failure): (7) Hyperlipidemia: (8) CAD (coronary artery disease): (9) Shock circulatory: (10) ZORAN (acute kidney injury): Plan Reason Critically Ill: 84-year-old female in cardiogenic shock underwent successful drug-eluting stent placement PLAN: Neuro: On fentanyl and midazolam pushes Propofol was discontinued because of negative inotropic effects Resp: -- Acute respiratory failure secondary to cardiogenic shock Continue with vent support CV: Cardiogenic shock: Right-sided heart failure Random cortisol 21 Continue with vasopressor support to keep MAP greater than 65 Coronary artery disease status post ST elevation [place] with transient complete heart block - Drug-eluting stent to RCA - Dual antiplatelet therapy Episode of ventricular fibrillation - Continue amiodarone infusion Bradycardia transient heart block - Continue pacemaker with backup rate this has been adjusted by cardiology: Increased rate of 80 has improved hemodynamics Fluids/Renal: -- Acute kidney injury --> improving Monitor BUN/creatinine Avoid nephrotoxic medications Strict ins and outs ID: -- New onset fever Chest x-ray looks clean Urine is dirty Continue with antibiotics to cover for UTI Follow-up urine culture Follow-up blood cultures GI/Nutrition: Transaminitis --> trending down Secondary to cardiogenic shock and probable congestive hepatopathy Continue to monitor History of hyperlipidemia - Zetia 10 mg and Crestor Heme: -- Normocytic anemia Monitor H&H Transfuse for hemoglobin less than 7.5 CT abdomen pelvis on 06/07/2025 was negative for retroperitoneal bleed --New onset thrombocytopenia Continue to monitor Endocrine: ICU hyperglycemia protocol Vascular access: Right groin arterial sheath, left subclavian central venous access Code Status: Full code Disposition: ICU --Prophylaxis VTE: Lovenox GI: Pantoprazole Lines: Left subclavian, right femoral arterial, peripheral, right groin arterial sheath Sofia Diet: N.p.o. Plan: In/out: +573, urine output 1240 Slow drop in hemoglobin is likely because of dilutional given the patient is +3 L since coming to the hospital SBT trial with aim for extubation to BiPAP if possible Continue with antibiotics for the time being Potassium being replaced Family were updated at bedside I have personally spent 36 minutes of critical care time in the direct management of this patient. This is a life/limb threatening event. This includes time spent evaluating patient, direct bedside care, chart review, placing orders, interpretation of diagnostic studies, discussion with consultants, patient, and family members, as well as other required patient management activities. This time is exclusive of all separately billable procedures, and teaching time and separate from and in addition to any other critical care service time. Please note the above document was generated using voice recognition software. It may contain grammatical, syntax or spelling errors. Admission and Anticipated Discharge Date Admission Date: June 05, 2025 Subjective Patient seen and examined at bedside. No acute distress, no adverse events overnight She was on 0.05 of Levophed, 0.04 of vasopressin at 0.01 of epi MAP was in the high 60s She was following commands, breathing over the vent Denied any chest pain, no abdominal pain Review of Systems 2 Review of Systems: All systems reviewed & are unremarkable except as noted in Subjective Physical Exam 2 Physical Exam: Constitutional: No acute distress HEENT: EOMI, PERRLA Respiratory system: Decreased air entry bilaterally, no wheeze, no rhonchi, positive crackles bilateral lower lobe CVS: S1-S2 positive Abdomen: Soft, nontender, nondistended, positive bowel sounds x4 Extremities: +2 pulses bilaterally radialis/ dorsalis pedis, no cyanosis, +1 pitting edema bilateral lower extremity Neuro: Intubated, RASS -1, following simple commands Psych: Normal mood and affect G/U: Positive Sofia Skin: no rashes, warm and dry Lymphatic: no cervical or axillary lymphadenopathy Results & Data Results & Data Vital Signs (Past 12 Hours) Vital Signs Temp Pulse Resp BP Pulse Ox O2 Del Method FiO2 06/08/25 05:00 37.6 C H 81 22 99 Mechanical Vent 30 06/08/25 04:00 37.5 C 68 17 100 Mechanical Vent 30 06/08/25 04:00 30 06/08/25 04:00 72 114/40 L 06/08/25 03:30 72 18 99 30 06/08/25 03:15 37.6 C H 78 19 96 Mechanical Vent 30 06/08/25 02:15 37.6 C H 70 17 99 Mechanical Vent 30 06/08/25 01:00 37.8 C H 80 20 97 Mechanical Vent 30 06/08/25 00:00 37.8 C H 80 20 98 Mechanical Vent 30 06/08/25 00:00 30 06/08/25 00:00 80 111/45 L 06/07/25 23:30 80 21 100 35 06/07/25 23:10 80 06/07/25 23:06 37.8 C H 80 18 99 Mechanical Vent 35 06/07/25 22:09 37.8 C H 77 19 100 Mechanical Vent 35 06/07/25 21:36 37.9 C H 77 18 100 Mechanical Vent 35 06/07/25 20:48 Mechanical Vent 35 06/07/25 20:03 38.1 C H 77 21 99 Mechanical Vent 35 06/07/25 20:00 355 06/07/25 20:00 80 108/44 L 06/07/25 20:00 80 23 99 35 Laboratory Results 06/08/25 03:37 06/08/25 03:37 Coding Level of Care Code 81771 CRITICAL CARE 1ST 30-74M Diagnoses Acute hyponatremia E87.1 Acute tubular necrosis N17.[address] elevation myocardial infarction (STEMI) of inferior wall I21.19 Complete heart block, transient I44.2 Syncope and collapse R55 Chronic diastolic CHF (congestive heart failure) I50.32 Hyperlipidemia E78.5 Coronary artery disease involving [place] coronary artery of [place] heart with angina pectoris I25.119 Associated angina: with unspecified form of angina Coronary Disease-Associated Artery/Lesion type: [place] artery [place] vs. transplanted heart: [place] heart Shock circulatory R57.9 ZORAN (acute kidney injury) N17.9 (8) CAD (coronary artery disease) Associated angina: with unspecified form of angina Coronary Disease- Associated Artery/Lesion type: [place] artery [place] vs. transplanted heart: n ative heart Qualified Code(s): I25.119 - Atherosclerotic heart disease of [place] coronary artery with unspecified angina pectoris
[2025-06-08] MEDS: PIPERACILLIN/TAZOBACTAM 4.5 GM/100 ML BAG IV STA (08:50)
[2025-06-08] MEDS: CALCIUM GLUCONATE 1,000 MG/60 ML BAG IV SCH (09:42)
--- NOTE | 2025-06-08 10:05 | Nephrology Progress Note ---
Date of Service June 08, 2025 Assessment & Plan (1) ZORAN (acute kidney injury): (2) Acute hyponatremia: (3) Hypocalcemia: (4) Acute hepatic failure: (5) Acute ST elevation myocardial infarction (STEMI) of inferior wall: (6) Cardiogenic shock: (7) Symptomatic bradycardia: Plan 84-year-old female with recent kidney function in, baseline creatinine 1.0-1.1 mg/dl, admitted to the hospital with cardiogenic shock and STEMI, had 2 RCA stent and currently intubated and on multiple pressor. On admission creatinine was 1.0 but over last 24 hours developed acute kidney injury most likely secondary to ATN in the setting of cardiogenic shock with rapid worsening of kidney function noted creatinine was 2.0 yesterday and 2.4 this morning. Electrolyte abnormality noted including hypokalemia, hypocalcemia and hypomagnesemia. Clinically volume overloaded and however no significant issues with ventilation. Urine output has been slightly low. Overall clinically doing much better, blood pressure improved. Urine output started to improve and kidney function improving, creatinine down to 2.0 mg/dl. --Dose medications for eGFR less than 30 --Avoid nephrotoxic medications. --expect kidney function to continue to improve Admission and Anticipated Discharge Date Admission Date: June 05, 2025 Subjective Raeann was seen and evaluated this morning. Overall doing much better, blood pressure improved, pressor requirement going down urine output increased. Labs this morning showed improvement in kidney function, creatinine down to 2.0 mg/dl. Review of Systems Review of Systems: Detailed review of system was done and pertinent positives and negatives are mentioned above. Physical Exam Constitutional: WD/WN, vitals as above + ill appearing; no acute distress Eyes: + anicteric sclerae Respiratory: Auscultation: + diminished lung sounds and + crackles Cardiovascular: Rate/Rhythm: regular rate and regular rhythm Extremities: no edema Musculoskeletal: Extremities: extremities normal to inspection Skin: no rashes, warm and dry Results & Data Vital Signs (Past 12 Hours) Vital Signs Temp Pulse Resp BP Pulse Ox O2 Del Method FiO2 06/08/25 09:30 37.2 C 80 29 H 98 06/08/25 09:18 37.3 C 80 31 H 98 06/08/25 09:09 37.3 C 80 29 H 99 06/08/25 09:08 80 28 H 100 30 06/08/25 09:00 37.4 C 80 22 06/08/25 08:51 37.4 C 80 16 97 06/08/25 08:46 113/56 L 06/08/25 08:46 113/56 L 06/08/25 08:46 113/56 L 06/08/25 08:39 37.5 C 73 17 98 06/08/25 08:36 37.5 C 75 17 99 06/08/25 08:15 37.5 C 70 26 H 96 06/08/25 08:03 37.4 C 77 18 96 06/08/25 08:00 Mechanical Vent 30 06/08/25 08:00 30 06/08/25 07:30 37.4 C 80 19 100 06/08/25 07:20 37.1 C 06/08/25 07:12 80 20 98 30 06/08/25 07:00 37.4 C 80 22 93 Mechanical Vent 30 06/08/25 06:45 37.4 C 75 18 97 06/08/25 05:00 37.6 C H 81 22 99 Mechanical Vent 30 06/08/25 04:00 37.5 C 68 17 100 Mechanical Vent 30 06/08/25 04:00 30 06/08/25 04:00 72 114/40 L 06/08/25 03:30 72 18 99 30 06/08/25 03:15 37.6 C H 78 19 96 Mechanical Vent 30 06/08/25 02:15 37.6 C H 70 17 99 Mechanical Vent 30 06/08/25 01:00 37.8 C H 80 20 97 Mechanical Vent 30 06/08/25 00:00 37.8 C H 80 20 98 Mechanical Vent 30 06/08/25 00:00 30 06/08/25 00:00 80 111/45 L 06/07/25 23:30 80 21 100 35 06/07/25 23:10 80 06/07/25 23:06 37.8 C H 80 18 99 Mechanical Vent 35 06/07/25 22:09 37.8 C H 77 19 100 Mechanical Vent 35 PG Care Time/CCT Total # of Minutes Spent Total Time Spent with Patient: Total time spent is greater than 50% in coordination of care (as documented) at patient's floor/unit and/or counseling patient: Coding Level of Care Code 55506 SUB INP/OBS CARE 2/35MIN Diagnoses ZORAN (acute kidney injury) N17.9 Acute hyponatremia E87.1 Hypocalcemia E83.51 Acute hepatic failure K72.[address] elevation myocardial infarction (STEMI) of inferior wall I21.19 Cardiogenic shock R57.0 Symptomatic bradycardia R00.1
[2025-06-08] MEDS ORDERED: Nursing to Pharmacy Communication SCH (11:45)
--- NOTE | 2025-06-08 14:39 | Cardiology Progress Note ---
Date of Service June 08, 2025 Assessment & Plan (1) Syncope and collapse: Plan: Likely due to transient AV block in the setting of an RCA infarct. Currently conducting well without evidence of AV block. (2) ST elevation (STEMI) myocardial infarction: Plan: Recurrent inferior ST elevation MT of the RCA. Successful PCI. 2 drug-eluting stents placed in the RCA. Overall LV function and. Adequate on her initial echocardiogram. However, still requiring significant pressor support. 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 Extubated today. Requiring less pressor support. (3) CAD (coronary artery disease): Plan: Severe multivessel coronary disease. Prior two-vessel CABG with HANKS to LAD and SVG to diagonal/ramus. When hemodynamics improve we can continue her outpatient regimen for secondary prevention. (4) Hyperlipidemia: Plan: Patient is high risk. High intensity statin therapy with rosuvastatin and Zetia. (5) Hypertension: Plan: Currently hypotensive requiring 3 vasopressors. (6) Cardiogenic shock: Plan: Possibly a contribution from distributive shock given the fever. Overall improving. Renal function improving. Less pressor support. I reduced her pacing output to 70 bpm. Hopefully we can discontinue the transvenous pacer in the next 24 hours. As her clinical condition improves we will look for an opportunity to institute standard post MT medications. Admission and Anticipated Discharge Date Admission Date: June 05, 2025 Subjective 17 the patient was alert. She has been extubated and answering questions appropriately. No reports of pain. No breathing difficulty. Review of Systems Review of Systems: Per HPI Physical Exam Physical Exam: Alert. Oriented. Answer questions appropriately. HEENT: Sclerae are anicteric. Lungs: Bronchial breath sounds. No wheezing. No rales. Cardiac: The rhythm was regular. S1 and S2 were normal. There are no murmurs on examination. Abdomen: The abdomen was soft and nontender. Extremities: Patient has bilateral radial pulses that are equal in intensity. There is no evidence cyanosis or clubbing. Right groin access site without hematoma or drainage. Skin: There are no rashes noted on examination today. Results & Data Vital Signs (Past 12 Hours) Vital Signs Temp Pulse Resp BP Pulse Ox O2 Del Method FiO2 06/08/25 13:45 37.3 C 68 25 H 96 06/08/25 13:42 37.3 C 68 26 H 98 06/08/25 13:24 37.3 C 70 22 99 06/08/25 13:18 37.3 C 80 23 98 06/08/25 13:17 77 28 H 97 30 06/08/25 13:00 37.4 C 72 20 98 06/08/25 12:48 37.4 C 68 25 H 100 06/08/25 12:42 37.4 C 70 24 100 06/08/25 12:36 37.4 C 72 24 100 06/08/25 12:30 37.3 C 68 25 H 100 06/08/25 12:21 37.3 C 80 21 93 06/08/25 11:54 37.2 C 74 31 H 97 06/08/25 11:30 37.2 C 66 25 H 98 06/08/25 11:27 37.2 C 70 27 H 98 06/08/25 11:21 37.2 C 70 23 98 06/08/25 11:12 37.2 C 77 31 H 97 06/08/25 11:03 37.2 C 70 26 H 98 06/08/25 10:48 37.2 C 80 23 98 06/08/25 10:42 37.2 C 80 34 H 97 06/08/25 10:36 37.2 C 80 29 H 97 06/08/25 10:30 37.2 C 80 25 H 96 06/08/25 10:21 37.2 C 80 25 H 100 06/08/25 10:15 37.2 C 80 29 H 97 06/08/25 10:06 37.2 C 68 24 99 06/08/25 09:45 37.2 C 68 26 H 98 06/08/25 09:42 37.2 C 70 25 H 97 06/08/25 09:30 37.2 C 80 29 H 98 06/08/25 09:18 37.3 C 80 31 H 98 06/08/25 09:09 37.3 C 80 29 H 99 06/08/25 09:08 80 28 H 100 30 06/08/25 09:00 37.4 C 80 22 06/08/25 08:51 37.4 C 80 16 97 06/08/25 08:46 113/56 L 06/08/25 08:46 113/56 L 06/08/25 08:46 113/56 L 06/08/25 08:39 37.5 C 73 17 98 06/08/25 08:36 37.5 C 75 17 99 06/08/25 08:15 37.5 C 70 26 H 96 06/08/25 08:03 37.4 C 77 18 96 06/08/25 08:00 70 06/08/25 08:00 Mechanical Vent 30 06/08/25 08:00 30 06/08/25 07:30 37.4 C 80 19 100 06/08/25 07:20 37.1 C 06/08/25 07:12 80 20 98 30 06/08/25 07:00 37.4 C 80 22 93 Mechanical Vent 06/08/25 06:45 37.4 C 75 18 97 06/08/25 05:00 37.6 C H 81 22 99 Mechanical Vent 30 06/08/25 04:00 37.5 C 68 17 100 Mechanical Vent 30 06/08/25 04:00 30 06/08/25 04:00 72 114/40 L 06/08/25 03:30 72 18 99 30 06/08/25 03:15 37.6 C H 78 19 96 Mechanical Vent 30 Laboratory Results Abnormal Lab Results 06/07/25 06/07/25 06/07/25 13:56 14:23 18:26 WBC RBC Hgb 8.1 L Hct 24.0 L MCV MCH MCHC RDW Std Deviation RDW Coeff of Randell Plt Count MPV Immature Gran % (Auto) Neut % (Auto) Lymph % (Auto) Bledsoe % (Auto) Eos % (Auto) Baso % (Auto) Neut # (Auto) Lymph # (Auto) Bledsoe # (Auto) Eos # (Auto) Baso # (Auto) Immature Gran # (Auto) Toxic Vacuolation Dohle Bodies Polychromasia Ovalocytes Echinocytes Acanthocytes (Spur) PT 13.7 H INR 1.3 H Sodium Potassium Chloride Carbon Dioxide Anion Gap BUN Creatinine Est Cr Clr Drug Dosing eGFR BUN/Creatinine Ratio Glucose POC Glucose 122 H POC Glucose (other) Lactate Calcium Phosphorus Magnesium Total Bilirubin Direct Bilirubin AST ALT Alkaline Phosphatase Total Protein Albumin Procalcitonin 06/07/25 06/08/25 06/08/25 23:35 03:37 05:55 WBC 5.90 RBC 2.70 L Hgb 7.9 L Hct 23.4 L MCV 86.7 MCH 29.3 MCHC 33.8 RDW Std Deviation 48.7 H RDW Coeff of Randell 15.5 H Plt Count 102 L MPV 11.3 Immature Gran % (Auto) 1.4 Neut % (Auto) 89.0 Lymph % (Auto) 2.5 Bledsoe % (Auto) 6.4 Eos % (Auto) 0.0 Baso % (Auto) 0.7 Neut # (Auto) 5.25 Lymph # (Auto) 0.15 L Bledsoe # (Auto) 0.38 Eos # (Auto) 0.00 Baso # (Auto) 0.04 Immature Gran # (Auto) 0.08 Toxic Vacuolation 1+ Dohle Bodies 1+ Polychromasia 1+ Ovalocytes 1+ Echinocytes 2+ Acanthocytes (Spur) 1+ PT INR Sodium 133 L Potassium 3.7 Chloride 105 Carbon Dioxide 19 L Anion Gap 9 BUN 24 H Creatinine 2.02 H D Est Cr Clr Drug Dosing 19.5 eGFR 23.75 BUN/Creatinine Ratio 11.9 Glucose 122 H POC Glucose 119 H 134 H POC Glucose (other) Lactate Calcium 7.2 L Phosphorus 5.0 H Magnesium 2.3 Total Bilirubin 1.0 Direct Bilirubin 0.3 H AST 41 H ALT 56 H Alkaline Phosphatase 39 Total Protein 4.4 L Albumin 2.5 L Procalcitonin 06/08/25 06/08/25 08:25 12:42 WBC RBC Hgb Hct MCV MCH MCHC RDW Std Deviation RDW Coeff of Randell Plt Count MPV Immature Gran % (Auto) Neut % (Auto) Lymph % (Auto) Bledsoe % (Auto) Eos % (Auto) Baso % (Auto) Neut # (Auto) Lymph # (Auto) Bledsoe # (Auto) Eos # (Auto) Baso # (Auto) Immature Gran # (Auto) Toxic Vacuolation Dohle Bodies Polychromasia Ovalocytes Echinocytes Acanthocytes (Spur) PT INR Sodium Potassium Chloride Carbon Dioxide Anion Gap BUN Creatinine Est Cr Clr Drug Dosing eGFR BUN/Creatinine Ratio Glucose POC Glucose POC Glucose (other) 125 H Lactate 1.8 Calcium Phosphorus Magnesium Total Bilirubin Direct Bilirubin AST ALT Alkaline Phosphatase Total Protein Albumin Procalcitonin 14.30 H PG Care Time/CCT Total # of Minutes Spent Total Time Spent with Patient: Total time spent is greater than 50% in coordination of care (as documented) at patient's floor/unit and/or counseling patient: Coding Level of Care Code 28140 SUB INP/OBS CARE 2/35MIN Diagnoses Syncope and collapse R55 ST elevation myocardial infarction involving right coronary artery I21.11 Involved coronary artery: right coronary artery Coronary artery disease involving [place] coronary artery of [place] heart with angina pectoris I25.119 Coronary Disease-Associated Artery/Lesion type: [place] artery [place] vs. transplanted heart: [place] heart Associated angina: with unspecified form of angina Hyperlipidemia E78.5 Hypertension I10 Cardiogenic shock R57.0 (2) ST elevation (STEMI) myocardial infarction Involved coronary artery: right coronary artery Qualified Code(s): I21.11 - ST elevation (STEMI) myocardial infarction involving right coronary artery (3) CAD (coronary artery disease) Coronary Disease-Associated Artery/Lesion type: [place] artery [place] vs. transplanted heart: [place] heart Associated angina: with unspecified form of angina Qualified Code(s): I25.119 - Atherosclerotic heart disease of [place] coronary artery with unspecified angina pectoris
--- NOTE | 2025-06-08 15:03 | Hospitalist Progress Note ---
Date of Service June 08, 2025 Assessment & Plan (1) Acute ST elevation myocardial infarction (STEMI) of inferior wall: Plan: To address #1, patient underwent emergent cardiac catheterization (06/05/2025, 1:04pm, [facility] Interventional CARDS Dr. Amari Valles) with successful deployment of "2 overlapping drug-eluting stents in the mid and distal RCA covering the previous stent which seemed to harbor thrombus after the angioplasty portion of the procedure." Patient subsequently was loaded with plavix 600mg PO x 1 dose (06/05/2025, 2:54pm) and will start plavix 75mg PO daily (06/06/2025, 9:00am) and continue with her home-scheduled ASA 81mg PO daily (06/06/2025, 9:00am); patient will then continue with both plavix 75mg PO daily and ASA 81mg PO daily for the rest of her life. Patient will also continue with her home-scheduled, high intensity dose rosuvastatin 40mg PO daily and ezetimibe 10mg PO daily. Patient was also started on integrilin 20mg in 6.8 mL IV x 1 dose (first bolus administered on 06/05/2025, 3:38pm), followed by integrilin 20mg in 6.8 mL IV x 1 dose (second bolus administered on 06/05/2025, 3:39pm), followed by integrilin infusion @ 2.06 ug/kg/min (06/05/2025, 6:06pm) for 18 hours, followed by its discontinuation on 06/06/2025, 9:00am. Of final note, patient is being held OFF her home-scheduled metoprolol succinate 12.5mg PO qhs given potential for this medication to cause further bradycardia and/or hypotension. Patient is also not being started on either SHER inhibitor and/or ARB given the potential for either medication to cause further hypotension and/or acute renal injury/failure. cf., admission creatinine 1.19 mg/dL, GFR 44.8 mL/min (06/05/2025, 12:27pm). cf., TTE (06/05/2025, 3:54pm): 1. LV EF 60-65%. Regional wall motion abnormalities including mild hypokinesis of inferior wall from base to mid ventricle. 2. RV ventricle mildly dilated with RV systolic function moderately reduced. 3. LA size normal. 4. MV anatomy normal. 5. Very small posterior pericardial effusion. (as per CARDS Dr. Bran Field). 06/06/2025: Patient continues to receive plavix 75mg PO daily, ASA 81mg PO daily, rosuvastatin 40mg PO daily, and ezetimibe 10mg PO daily. 06/07/2025: Patient continues to receive plavix 75mg PO daily, ASA 81mg PO daily, rosuvastatin 40mg PO daily, and ezetimibe 10mg PO daily. 06/08/2025: Patient continues to receive plavix 75mg PO daily, ASA 81mg PO daily, rosuvastatin 40mg PO daily, and ezetimibe 10mg PO daily. (2) Cardiogenic shock: Plan: To address #2, patient was started on dual pressor support utilizing norepinephrine 4mg IV x 1 dose (06/05/2025, 2:50pm), followed by norepinephrine infusion @ 0.2ug/kg/min (06/05/2025, 4:08pm) and dopamine infusion @ 7.5ug/kg/min (06/05/2025, 3:30pm), as well as 1 liter of 0.9% NS @ 75 mL/hr (06/05/2025, 4:26pm), all to maintain MAP > 65 mm Hg, and to "Gradually wean these down. Since we were relatively quick in getting reperfusion I am hopeful that she will be able to maintain blood pressure without vasopressors by genia velazquez." (as per [facility] Interventional CARDS Dr. Amari Valles) on 06/05/2025. In addition, patient was also loaded with anti-arrhythmic agent amiodarone 300mg IV x 1 dose (06/05/2025, 3:37pm), followed by amiodarone 150mg IV x 1 dose @ 600 mL/hr (06/05/2025, 4:09pm), followed by amiodarone infusion @ 1mg/min (06/05/2025, 4:27pm), to prophylax against potential ventricular arrhythmias that may arise post-cardiac catheterization in this patient with recurrent acute inferior wall STEMI and cardiogenic shock. 06/06/2025: Patient still requires dual pressor support utilizing norepinephrine infusion @ 0.2ug/kg/min (06/06/2025, 10:22am) and dopamine infusion @ 5ug/kg/min (06/06/2025, 3:18am). Patient also continues to receive amiodarone infusion @ 0.5mg/min (06/06/2025, 10:21am). 06/07/2025: Patient now requires triple pressor support (to maintain MAP > 65 mm Hg) with: 1. norepinephrine (start date/time 06/05/2025, 4:08pm, [facility] ER, 0.36 ug/kg/min (06/07/2025, 1:31pm). 2. epinephrine (start date/time, 06/07/2025, 9:47am, [facility] ICU bed #[id number], 0.02 ug/kg/min). 3. vasopressin (start date/time, 06/07/2025, 9:24am, [facility] ICU bed #[id number], 0.04 units/min). OFF dopamine gtt (start date/time, 06/05/2025, 3:30pm, [facility] ER; stop date/time, 06/07/2025, 9:24am, [facility] ICU bed #[id number]). 06/08/2025: Patient now requires triple pressor support (to maintain MAP > 65 mm Hg) with: 1. norepinephrine (start date/time 06/05/2025, 4:08pm, [facility] ER, 0.36 ug/kg/min (06/07/2025, 1:31pm), now down to 0.05 ug/kg/min (06/08/2025, 5:30am). 2. epinephrine (start date/time, 06/07/2025, 9:47am, [facility] ICU bed #[id number], 0.02 ug/kg/min), now down to 0.01 ug/kg/min (06/08/2025, 3:16am). 3. vasopressin (start date/time, 06/07/2025, 9:24am, [facility] ICU bed #[id number], 0.04 units/min), unchanged at 0.04 units/min (06/08/2025, 9:42am). (3) Acute tubular necrosis: Plan: Patient's renal function appears to be improving today (06/08/2025), as shown below: cf., BUN 19, creatinine 1.19, GFR 44.8 (06/05/2025, 12:27pm). cf., BUN 25, creatinine 2.04, GFR 23.5 (06/06/2025, 5:11am). cf., BUN 25, creatinine 2.37, GFR 19.6 (06/07/2025, 4:35am). cf., BUN 24, creatinine 2.02, GFR 23.8 (06/08/2025, 3:37am). Etiology of acute renal injury is attributed to acute tubular necrosis, which in turn, is due to acute cardiogenic shock, which in turn, is due to acute inferior wall STEMI. In addition, patient's improving urine output parallels the patient's improving renal function with a recorded urine output that has increased, as shown below: cf., + card catheter with urine output 0.09 mL/kg/hr (06/05/2025, 12:33pm through 06/06/2025, 12:33pm). cf., + card catheter with urine output 0.35 mL/kg/hr (06/06/2025, 7:17am through 06/07/2025, 7:17am). cf., + card catheter with urine output 0.67 mL/kg/hr (06/07/2025, 7:12am through 06/08/2025, 7:12am). Subsequently, patient still requires triple pressor support (to maintain MAP > 65 mm Hg), albeit with lower doses of pressors on 06/08/2025, with: 1. norepinephrine (start date/time 06/05/2025, 4:08pm, [facility] ER, 0.36 ug/kg/min (06/07/2025, 1:31pm), now down to 0.05 ug/kg/min (06/08/2025, 5:30am). 2. epinephrine (start date/time, 06/07/2025, 9:47am, [facility] ICU bed #[id number], 0.02 ug/kg/min), now down to 0.01 ug/kg/min (06/08/2025, 3:16am). 3. vasopressin (start date/time, 06/07/2025, 9:24am, [facility] ICU bed #[id number], 0.04 units/min), unchanged at 0.04 units/min (06/08/2025, 9:42am). Hopefully, this triple pressor support strategy will continue to augment renal perfusion, and thereby increase urine output over the next 24-48 hours. Stay tuned. cf., Renal Service of Dr. Cristiana Garcia (06/07/2025, 10:24am): "If urine output remains low, recommend a trial of IV Bumex 2 mg x 1 dose. Check electrolyte in the afternoon. If any critical electrolyte abnormality and urine output remains low, may need to consider dialysis. However, with her hemodynamic instability, intermittent hemodialysis may not be tolerated. May need to consider transferring to tertiary care facility for CRRT if dialysis ne eded." (4) Acute hepatic failure: Plan: Patient's transaminase levels initially increased, as shown below: cf., AST 27, ALT 27, ALK PHOS 36, TBili 1.3, albumin 4.0 (06/05/2025, 12:27pm). cf., AST 167, ALT 135, ALK PHOS 31, TBili 0.8, albumin 2.8 (06/06/2025, 5:11am). cf., AST 65, ALT 80, ALK PHOS 40, TBili 1.0, albumin 2.7 (06/07/2025, 4:35am). cf., AST 41, ALT 56, ALK PHOS 39, TBili 1.0, albumin 2.5 (06/08/2025, 3:37am). Patient's liver's synthetic function remains intact: cf., INR 1.0 (06/05/2025, 12:27pm). cf., INR 1.0 (06/06/2025, 6:22am). cf., INR 1.3 (06/07/2025, 2:23pm). Hence, I surmise that patient does not suffer from acute hepatic failure as of now, but may develop acute hepatic failure in the day(s) to come, which in turn, is due to acute cardiogenic shock, which in turn, is due to acute inferior wall STEMI. Hence, patient still requires triple pressor support (to maintain MAP > 65 mm Hg), albeit with lower doses of pressors on 06/08/2025, with: 1. norepinephrine (start date/time 06/05/2025, 4:08pm, [facility] ER, 0.36 ug/kg/min (06/07/2025, 1:31pm), now down to 0.05 ug/kg/min (06/08/2025, 5:30am). 2. epinephrine (start date/time, 06/07/2025, 9:47am, [facility] ICU bed #[id number], 0.02 ug/kg/min), now down to 0.01 ug/kg/min (06/08/2025, 3:16am). 3. vasopressin (start date/time, 06/07/2025, 9:24am, [facility] ICU bed #E109, 0.04 units/min), unchanged at 0.04 units/min (06/08/2025, 9:42am). Hopefully, this triple pressor support strategy will continue to augment hepatic perfusion, and thereby mitigate further transaminase elevation(s) over the next 24-48 hours, hopefully. Stay tuned. (5) Acute hyponatremia: Plan: Patient's sodium level has declined: cf., Na 140 mmol/L (06/05/2025, 12:27pm). cf., Na 132 mmol/L (06/06/2025, 5:11am). cf., Na 130 mmol/L (06/07/2025, 4:35am). cf., Na 133 mmol/L (06/07/2025, 9:48am). cf., Na 133 mmol/L (06/08/2025, 3:37am). Etiology of acute hyponatremia is probably due to a combination of (a) acute dehydration in the NPO state due to mechanical intubation/ventilation on Assist Control with TV 400 mL, RR 19 breaths/minute, PEEP 5 cm H2O, and FIO2 = 0.3 (06/06/2025, 10:25am); and/or (b) SIADH in the setting of acute RV systolic CHF, which in turn, is due to acute cardiogenic shock, which in turn, is due to acute inferior wall STEMI. Hence, patient has already received 1 liter of 0.9% NS @ 75 mL/hr (start date/time, 06/05/2025, 4:26pm) and continues to receive 1 liter of 0.9% NS @ 75 mL/hr (start date/time, 06/06/2025, 4:42am) to mitigate further declines in Na levels over the next 24-48 hours, hopefully. Stay tuned. (6) Hypocalcemia: Plan: Patient's calcium level remains low, as shown below: cf., Ca 9.1, albumin 4.0, Ca corrected 9.1 (06/05/2025, 12:27pm). cf., Ca 6.8, albumin 2.8, Ca corrected 7.8 (06/06/2025, 5:11am). cf., Ca 7.1, albumin 2.7, Ca corrected 8.1 (06/07/2025, 4:35am). cf., Ca 7.2, albumin 2.5, Ca corrected 8.4 (06/08/2025, 3:37am). Etiology of acute hypocalcemia is probably due to acute dehydration in the NPO state due to mechanical intubation/ventilation. Hence, patient received calcium gluconate 1g IV x 3 doses (06/06/2025, 6:00am, 6:35am, and 6:49am). Hence, patient received calcium gluconate 1g IV x 1 dose (06/07/2025, 10:31am). Hence, patient received calcium gluconate 1g IV x 2 doses (06/08/2025, 9:42am, 12:06pm) to mitigate further declines in Ca levels over the next 24-48 hours, hopefully. Stay tuned. (7) Hypomagnesemia: Plan: Patient's magnesium level has returned to normal, as shown below: cf., Mg 2.2 (06/05/2025, 6:05am). cf., Mg 2.1 (06/06/2025, 12:27pm). cf., Mg 1.5 (06/07/2025, 4:35am). cf., Mg 2.3 (, 3:37am). Etiology of acute hypomagnesemia was probably due to acute dehydration in the NPO state due to mechanical intubation/ventilation. Hence, patient received magnesium sulfate 1g IV x 3 doses (06/07/2025, 8:24am, 10:06am, 12:10pm, 2:16pm). Subsequently, acute hypomagnesemia RESOLVED, as shown above. (8) Acute hypokalemia: Plan: Patient's potassium level has returned to normal, as shown below: cf., K 4.5 (06/05/2025, 12:27pm). cf., K 3.4 (06/06/2025, 5:11am). cf., K 3.8 (06/07/2025, 4:35am). cf., K 3.5 (06/07/2025, 9:48am). cf., K 3.7 (06/08/2025, 3:37am). Etiology of acute hypokalemia was probably due to acute dehydration in the NPO state due to mechanical intubation/ventilation. Hence, patient received potassium chloride 40meq PO x 1 dose (06/06/2025, 9:07am). Hence, patient received potassium chloride 20meq IV x 1 dose (06/07/2025, 8:44am). Subsequently, acute hypokalemia RESOLVED, as shown above, but K level remains less than 4.0 mmol/L on 06/08/2025. Hence, patient received potassium chloride 20meq PO x 1 dose (06/08/2025, 6:00am) to increase K level to more than 4.0 mmol/L, over the next 24-48 hours, hopefully. Stay tuned. (9) Symptomatic bradycardia: Plan: To address #8, patient was continued on hospital monitor in ICU bed #E109-1 on admission date 06/05/2025. Continue transvenous PPM in situ as needed, as recommended by [facility] Interventional CARDS Dr. Amari Valles, on 06/05/2025, and who also recommends "that as we titrate down her vasopressor support we keep the transvenous pacemaker in place as she may become profoundly bradycardic without dopamine and norepinephrine. Then, we could start to titrate down the pacer to see if she can sustain a sinus rhythm long-term. She has had more than 1 myocardial infarction in the RCA distribution and I am concerned that she will eventually require permanent pacemaker particularly for us to optimize her medical therapy." 06/06/2025: Patient is not bradycardic with HR 80 bpm (06/06/2025, 10:25am). Continue hospital monitor and transvenous PPM in situ as needed. 06/07/2025: Patient is not bradycardic with HR 80 bpm (06/07/2025, 1:53pm). Continue hospital monitor and transvenous PPM in situ as needed. (10) Infection: Plan: Etiology of infection remains unclear in this afebrile patient with negative urine culture (06/05/2025, 7:30pm). In addition, portable CXR #1 (06/05/2025, 1:11pm) and portable CXR #2 (06/07/2025, 6:00am) reveal no infiltrate/consolidation to suggest acute bacterial pneumonia. In addition, blood culture #1 (06/07/2025, 10:13am) and blood culture #2 (06/07/2025, 10:51am) reveal no bacteremia. While WBC has declined to normal, as shown below, patient's peripheral blood smear reveals the presence of toxic vacuoles (06/07/2025, 4:38am) and now toxic vacuoles with Dohle bodies (06/08/2025, 3:37am): WBC 5.74, N46 L39 M11 E3 B1, (06/05/2025, 12:27pm). WBC 20.37, N83 L13 M 2 E1, (06/05/2025, 4:25pm). WBC 11.97, N72 L15 M13, (06/06/2025, 5:11am). WBC 11.81, N78 L12 M10, (06/06/2025, 2:51pm). WBC 5.90, N77 L13 M 9, toxic vacuoles (06/07/2025, 4:38am). (06/07/2025, 9:48am). (06/07/2025, 10:51am). WBC 5.90, N89 L 3 M 6 , toxic vacuoles, Dohle bodies (06/08/2025, 3:37am). While lactic acid levels remain normal, procalcitonin levels are increasing, as shown below: Lactic acid #1 1.5 mmol/L (06/06/2025, 10:57am). Lactic acid #2 1.8 mmol/L (06/08/2025, 8:25am). Procalcitonin #1 6.61 ng/mL (06/07/2025, 10:13am). Procalcitonin #2 14.30 ng/mL (06/08/2025, 8:25am). Hence, I surmise that this patient has an incipient infection that is not being treated adequately by ceftriaxone 2g IV daily x 1 dose (06/07/2025, 8:43am). Hence, I have opted to D/C ceftriaxone 2g IV daily on 06/08/2025, and in its place, I have started the patient on zosyn 4.5g IV q12 (day #/ on 06/08/2025, 8:50am). I will check vitals, chest exam, WBC w/diff, lactic acid, procalcitonin, blood culture #1 (06/07/2025, 10:13am), and blood culture #2 (06/07/2025, 10:51am) in the 06/09/2025 am. Of final note, I have not started patient on vancomycin as patient tested negative for MRSA nares PCR (06/05/2025, 5:20pm). Plan Code status, FULL CODE @ home. ACLS as required. Condition of patient appeared to be tenuous on 06/06/2025 and on 06/07/2025, and is contingent on patient demonstrating recovery of renal function/urine output to at least 30 mL/kg/hr. cf., urine output 0.09 mL/kg/hr (06/05/2025, 11:42am to 06/06/2025, 11:42am). cf., urine output 0.35 mL/kg/hr (06/06/2025, 7:17am to 06/07/2025, 7:17am). Subsequently, patient's urine output has increased significantly over the past 24 hours: cf., urine output 0.67 mL/kg/hr (06/07/2025, 7:12am to 06/08/2025, 7:12am). Subsequently, patient's condition appears to have improved from tenuous to fair on 06/08/2025. Nonetheless, patient still requires triple pressor support (to maintain MAP > 65 mm Hg), albeit with lower doses of pressors on 06/08/2025, with: 1. norepinephrine (start date/time 06/05/2025, 4:08pm, [facility] ER, 0.36 ug/kg/min (06/07/2025, 1:31pm), now down to 0.05 ug/kg/min (06/08/2025, 5:30am). 2. epinephrine (start date/time, 06/07/2025, 9:47am, [facility] ICU bed #E109, 0.02 ug/kg/min), now down to 0.01 ug/kg/min (06/08/2025, 3:16am). 3. vasopressin (start date/time, 06/07/2025, 9:24am, [facility] ICU bed #E109, 0.04 units/min), unchanged at 0.04 units/min (06/08/2025, 9:42am). Hopefully, this triple pressor support strategy will continue to augment renal perfusion, and thereby increase urine output over the next 24-48 hours. Stay tuned. Admission and Anticipated Discharge Date Admission Date: June 05, 2025 Subjective Patient is non-verbal due to intubation, but can respond with her head and her eyes in a "yes" or "no" manner to questions as patient is currently off sedation (e.g., propofol) on 06/08/2025, 1:35pm, and in weaning trials. Patient denies antecedent/coincident fevers, chills, diaphoresis, cough, wheeze, sore throat, hemoptysis, shortness of breath, dyspnea on exertion, chest pains, palpitations, pleurisy, nausea, vomiting, diarrhea, abdominal pain, pelvic pain, hematemesis, hematochezia, melena, hematuria, dysuria, frequency, urgency, headaches, dizziness, lightheadedness, visual changes, hearing changes, weakness, falls, syncope, trauma, travel history, sick contacts, or food/drug ingestions novel or new. All other review of systems are reported as negative by the patient on 06/08/2025. Review of Systems Constitutional: As stated above in the Subjective section of this 06/08/2025 Hospitalist Progress note. Physical Exam Physical Exam: General appearance: Run-down, worn-out, NOT diaphoretic at all on 06/07/2025, 1:29pm. Wide awake and alert. Not confused, lethargic, or obtunded. Patient is non-verbal due to intubation, but can respond with her head and her eyes in a "yes" or "no" manner to questions as patient is currently off sedation (e.g., propofol) on 06/08/2025, 1:35pm. Intubated (06/05/2025, 1:24pm, [facility] ER, Cr itical Care Dr. Roman Veliz), on Assist Control with TV 400, RR 16, PEEP 6, FIO2 0.35, on triple pressor support with: 1. norepinephrine (start date/time 12/2024, 4:08pm, [facility] ER) 2. epinephrine (start date/time, 0 06/07/2025, 9:47am, [facility] ICU bed #[id number]) 3. vasopressin (start date/time, 0 06/07/2025, 9:24am, [facility] ICU bed #[id number]) OFF dopamine gtt (start date/time, 06/05/2025, 3:30pm, [facility] ER; stop date/time, 06/07/2025, 9:24am, [facility] ICU bed #[id number]). HEENT: Normocephalic; atraumatic. EOMI. PERRL. Neck: Supple, no stridor, bruit, goiter, JVD, or HJR. Left subclavian central venous catheter in situ (06/05/2025, 1;24pm, [facility] ER, Critical Care Dr. Roman Veliz). Lymph: No lymphadenopathy. Chest: Symmetric rise and fall with respirations. Non-tender to palpation. Lungs: Clear to auscultation and percussion. No audible wheeze, pectoriloquy, increase in tactile fremitus, or flatness/dullness to percussion at the bases. Heart: RRR, S1S2, no S3 or S4. Grade II/ early systolic murmur @ LLSB without radiation to the carotids, axilla, or back, and which remains invariant in regards to the respiratory cycle. Abd: Soft, non-tender, non-distended. No rebound, guarding, Mota's sign, or organomegaly. Bowel sounds auscultated in all 4 quadrants. Ext: No clubbing, cyanosis, or edema. 2+ pedal pulses bilaterally. Skin: No decubitus ulcer, exanthem, or enanthem. Neuro: Alert and oriented in regards to person, place, time, or situation. No myoclonus, tremors, or tics. Urology: + card catheter with urine output 0.09 mL/kg/hr (06/05/2025, 12:33pm through 06/06/2025, 12:33pm). + card catheter with urine output 0.35 mL/kg/hr (06/06/2025, 7:17am through 06/07/2025, 7:17am). + card catheter with urine output 0.67 mL/kg/hr (06/07/2025, 7:12am through 06/08/2025, 7:12am). No urethral discharge. Psych: No suicidal ideation. No homicidal ideation. Results & Data Results & Data Vital Signs (Past 12 Hours) Vital Signs Temp Pulse Resp BP Pulse Ox O2 Del Method FiO2 06/08/25 13:45 37.3 C 68 25 H 96 06/08/25 13:42 37.3 C 68 26 H 98 06/08/25 13:24 37.3 C 70 22 99 06/08/25 13:18 37.3 C 80 23 98 06/08/25 13:17 77 28 H 97 30 06/08/25 13:00 37.4 C 72 20 98 06/08/25 12:48 37.4 C 68 25 H 100 06/08/25 12:42 37.4 C 70 24 100 06/08/25 12:36 37.4 C 72 24 100 06/08/25 12:30 37.3 C 68 25 H 100 06/08/25 12:21 37.3 C 80 21 93 06/08/25 11:54 37.2 C 74 31 H 97 06/08/25 11:30 37.2 C 66 25 H 98 06/08/25 11:27 37.2 C 70 27 H 98 06/08/25 11:21 37.2 C 70 23 98 06/08/25 11:12 37.2 C 77 31 H 97 06/08/25 11:03 37.2 C 70 26 H 98 06/08/25 10:48 37.2 C 80 23 98 06/08/25 10:42 37.2 C 80 34 H 97 06/08/25 10:36 37.2 C 80 29 H 97 06/08/25 10:30 37.2 C 80 25 H 96 06/08/25 10:21 37.2 C 80 25 H 100 06/08/25 10:15 37.2 C 80 29 H 97 06/08/25 10:06 37.2 C 68 24 99 06/08/25 09:45 37.2 C 68 26 H 98 06/08/25 09:42 37.2 C 70 25 H 97 06/08/25 09:30 37.2 C 80 29 H 98 06/08/25 09:18 37.3 C 80 31 H 98 06/08/25 09:09 37.3 C 80 29 H 99 06/08/25 09:08 80 28 H 100 30 06/08/25 09:00 37.4 C 80 22 06/08/25 08:51 37.4 C 80 16 97 06/08/25 08:46 113/56 L 06/08/25 08:46 113/56 L 06/08/25 08:46 113/56 L 06/08/25 08:39 37.5 C 73 17 98 06/08/25 08:36 37.5 C 75 17 99 06/08/25 08:15 37.5 C 70 26 H 96 06/08/25 08:03 37.4 C 77 18 96 06/08/25 08:00 70 06/08/25 08:00 Mechanical Vent 30 06/08/25 08:00 30 06/08/25 07:30 37.4 C 80 19 100 06/08/25 07:20 37.1 C 06/08/25 07:12 80 20 98 30 06/08/25 07:00 37.4 C 80 22 93 Mechanical Vent 30 06/08/25 06:45 37.4 C 75 18 97 06/08/25 05:00 37.6 C H 81 22 99 Mechanical Vent 30 06/08/25 04:00 37.5 C 68 17 100 Mechanical Vent 30 06/08/25 04:00 30 06/08/25 04:00 72 114/40 L 06/08/25 03:30 72 18 99 30 06/08/25 03:15 37.6 C H 78 19 96 Mechanical Vent 30 Laboratory Results Troponin-I #1 140.8 pg/mL (06/05/2025, 12:27pm). Troponin-I #2 3027.8 pg/mL (06/05/2025, 4:25pm). Troponin-I #3 10,476.0 pg/mL (06/05/2025, 11:14pm). Troponin-I #4 15,668.7 pg/mL (06/06/2025, 5:11am). Troponin-I #5 15,258.4 pg/mL (06/06/2025, 10:51am). WBC 5.74, N46 L39 M11 E3 B1, Hb 13.7, MCV 89.2, MCHC 32.8, platelet 184 (06/05/2025, 12:27pm). WBC 20.37, N83 L13 M 2 E1, Hb 13.6, MCV 92.4, MCHC 31.9, platelet 227 (06/05/2025, 4:25pm). WBC 11.97, N72 L15 M13, Hb 10.9, MCV 89.4, MCHC 32.4, platelet 182 (06/06/2025, 5:11am). WBC 11.81, N78 L12 M10, Hb 10.8, MCV 87.7, MCHC 33.8, platelet 180 (06/06/2025, 2:51pm). WBC 5.90, N77 L13 M 9, toxic vacuoles, Hb 8.5, MCV 86.6, MCHC 34.7, platelet 145 (06/07/2025, 4:38am). Hb 6.1 (06/07/2025, 9:48am). Hb 8.5 (06/07/2025, 10:51am). WBC 5.90, N89 L 3 M 6 , toxic vacuoles, Dohle bodies, Hb 7.9, MCV 86.7, MCHC 33.8, platelet 102 (06/08/2025, 3:37am). Lactic acid #1 1.5 mmol/L (06/06/2025, 10:57am). Lactic acid #2 1.8 mmol/L (06/08/2025, 8:25am). Procalcitonin #1 6.61 ng/mL (06/07/2025, 10:13am). Procalcitonin #2 14.30 ng/mL (06/08/2025, 8:25am). MRSA nares PCR negative (06/05/2025, 5:20pm). U/A (06/05/2025, 7:30pm): cloudy yellow, LE-, nitrite-, WBC 21-50, RBC 11-20, epithelial cells 3-5, bacteria 2+ Urine culture (06/05/2025, 7:30pm): negative Blood culture #1 (06/07/2025, 10:13am): Blood culture #2 (06/07/2025, 10:51am): INR 1.0 (06/05/2025, 12:27pm). INR 1.0 (06/06/2025, 6:22am). Na 140, K 4.5, CO2 26, BUN 19, creatinine 1.19, GFR 44.8, glucose 120, Ca 9.1, Mg 2.1, AST 27, ALT 27, ALK PHOS 36, TBili 1.3, albumin 4.0 (06/05/2025, 12:27pm). Na 132, K 3.4, CO2 16, BUN 25, creatinine 2.04, GFR 23.5, glucose 160, Ca 6.8, PO4 2.8, AST 167, ALT 135, ALK PHOS 31, TBili 0.8, albumin 2.8 (06/06/2025, 5:11am). Na 130, K 3.8, CO2 15, BUN 25, creatinine 2.37, GFR 19.6, glucose 125, Ca 7.1, PO4 4.7, AST 65, ALT 80, ALK PHOS 40, TBili 1.0, albumin 2.7 (06/07/2025, 4:35am). K 3.5 (06/07/2025, 9:48am). Mg 2.2 (06/05/2025, 6:05am). Mg 2.1 (06/06/2025, 12:27pm). Mg 1.5 (06/07/2025, 4:35am). TSH 5.936 uIU/mL (06/05/2025, 12:27pm). Free T4 0.71 ng/dL (06/05/2025, 12:27pm). ABG 7.35 / 26 / 94 / 14 / O2 sat 97% on FIO2 = 0.30 (06/06/2025, 6:11am). ABG 7.40 / 24 / 62 / 15 / O2 sat 92% on FIO2 = 0.35 (06/07/2025, 4:35am). Diagnostic Findings Portable CXR (06/05/2025, 1:11pm): Cardiomegaly with pulmonary vascular congestion. No infiltrate, effusion, or pneumothorax (by my review). EKG #1 (06/05/2025, 12:23pm): sinus bradycardia @ 45, OK 176, QTC 442, 2mm ST elevation in III; 0.5mm ST elevation in aVF; 1mm ST depression in I, aVL; 1.5mm ST depression in V2; TWI in V3, V4, V5, V6; no q waves (by my review). EKG #2 (06/05/2025, 12:29pm): sinus bradycardia @ 51, OK 196, QTC 451, 5mm ST elevation in III; 4mm ST elevation in aVF; 2mm ST elevation in II; 1mm ST depression in aVL; 5mm ST depression in V2; (by my review). 1mm ST elevations in V3, V4, V5, V6; 2mm ST depression in I; no q waves EKG #3 (06/05/2025, 2:00pm): normal sinus @ 80, OK 132, QTC 422, no ST elevations; 1mm ST depression in V5, (by my review). no q waves TTE (06/05/2025, 3:54pm): 1. LV EF 60-65%. Regional wall motion abnormalities including mild hypokinesis of inferior wall from base to mid ventricle. 2. RV ventricle mildly dilated with RV systolic function moderately reduced. 3. LA size normal. 4. MV anatomy normal. 5. Very small posterior pericardial effusion. (as per CARDS Dr. Bran Field). KUB (06/06/2025, 10:36am): 1. Enteric tube is in place. 2. No radiographic evidence of bowel obstruction. Portable CXR (06/07/2025, 6:00am): 1. Blunted left costophrenic angle, suggestive of pleural effusion. Interval improvement. 2. ETT is away from the estee about 2.8 cm. 3. Nasogastric tube seen passing below the left hemidiaphragm, with its tip not within the field of view. 4. Left CVL is noted, the tip in right atrium. Unchanged. CT abd/pelvis without IV contrast (06/07/2025, 2:41pm): 1. No evidence of intraperitoneal or retroperitoneal hemorrhage as clinically queried. 2. Cardiomegaly and cardiac pacemaker. 3. Small pleural effusions with dependent consolidation. 4. Retained cortical contrast seen in both kidneys, as well as residual contrast within the collecting systems. This suggests acute renal injury. Correlate with clinical and laboratory findings. 5. Colonic diverticulosis without CT evidence of acute diverticulitis. 6. Small volume pelvic ascites. PG Care Time/CCT Total # of Minutes Spent Total Time Spent with Patient: Total time spent is greater than 50% in coordination of care (as documented) at patient's floor/unit and/or counseling patient: Coding Level of Care Code 92278 SUB INP/OBS CARE 3/50MIN Diagnoses Acute ST elevation myocardial infarction (STEMI) of inferior wall I21.19 Cardiogenic shock R57.0 Acute tubular necrosis N17.0 Acute hepatic failure K72.00 Acute hyponatremia E87.1 Hypocalcemia E83.51 Hypomagnesemia E83.42 Acute hypokalemia E87.6 Symptomatic bradycardia R00.1 Infection B99.9
[2025-06-08 15:44] LABS: Hematocrit (blood only) 20.4 % (37.0-47.0); Hemoglobin 7.0 g/dl (12.0-16.0); INR 1.1 (0.9-1.1); Prothrombin Time 11.9 Seconds (9.0-12.0)
[2025-06-08] MEDS: PIPERACILLIN/TAZOBACTAM 4.5 GM/100 ML BAG IV SCH (15:44)
[2025-06-08] MEDS ORDERED: SODIUM CHLORIDE 0.9% 100 ML IV PRN (15:58)
[2025-06-08 17:08] LABS: Reticulocytes # 0.050 10^6/uL (0.020-0.100)
[2025-06-08 17:21] LABS: Transferrin 124 mg/dl (200-360)
[2025-06-08 17:53] LABS: Fibrinogen 681 mg/dl (184-400)
[2025-06-08] MEDS: BUMETANIDE 1 MG in SYRINGE 0 ML IV ONE (20:03)
[2025-06-09 05:23] LABS: Alanine Aminotransferase 73.0 U/L (7-52); Alkaline Phosphatase 75.0 U/L (34-104); Anion Gap 8.0 (3-11); Bilirubin,Total 1.5 mg/dl (0.2-1.0); Blood Urea Nitrogen 29.0 mg/dl (6-23); Calcium 7.5 mg/dl (8.6-10.3); Carbon Dioxide 22.0 mmol/L (21-32); Chloride 105.0 mmol/L (98-107); Creatinine Clr Calc Pharmacy 20.1 ml/min; Glucose 109.0 mg/dl (70-99(Fasting)); Hematocrit (blood only) 24.5 % (37.0-47.0); Hemoglobin 8.2 g/dl (12.0-16.0); Magnesium 2.3 mg/dl (1.7-2.4); Mean Corpuscular Hemoglobin 28.2 pg (25.0-34.0); Mean Corpuscular Volume 84.2 fL (80.0-100.0); Platelet Count 94 K/uL (130-400); Potassium 3.4 mmol/L (3.5-5.1); RDW Standard Deviation 50.7 fL (36.4-46.3); Red Blood Count 2.91 M/uL (4.20-5.40); Sodium 135.0 mmol/L (136-145); Total Protein 4.8 gm/dl (6.0-8.3); White Blood Count 11.49 K/ul (4.8-10.8)
[2025-06-09 05:40] LABS: Acanthocytes 1+; Dohle Bodies 1+; Immature Granulocytes # (auto) 0.33 K/uL (0.01-0.20); Immature Granulocytes % (auto) 2.9 %; Ovalocytes 1+; Polychromasia 1+
[2025-06-09] MEDS: POTASSIUM CHLORIDE / WTR 20 MEQ/100 ML PLCT IV SCH (06:39)
--- NOTE | 2025-06-09 07:46 | Critical Care Progress Note ---
Date of Service June 09, 2025 Assessment & Plan (1) Acute hyponatremia: (2) Acute tubular necrosis: (3) Acute ST elevation myocardial infarction (STEMI) of inferior wall: (4) Complete heart block, transient: (5) Syncope and collapse: (6) Chronic diastolic CHF (congestive heart failure): (7) Hyperlipidemia: (8) CAD (coronary artery disease): (9) Shock circulatory: (10) ZORAN (acute kidney injury): Plan Reason Critically Ill: 84-year-old female in cardiogenic shock underwent successful drug-eluting stent placement PLAN: Neuro: On fentanyl and midazolam pushes Propofol was discontinued because of negative inotropic effects Resp: -- Acute respiratory failure secondary to cardiogenic shock Extubated 06/08/2025 Continue with BiPAP nightly and as needed shortness of breath CV: -- Cardiogenic shock: Right-sided heart failure Random cortisol 21, on hydrocortisone Continue with vasopressor support to keep MAP greater than 65 -- STEMI with transient complete heart block - s/p 2 Drug-eluting stent to RCA - Dual antiplatelet therapy -- Episode of ventricular fibrillation Amiodarone infusion discontinued Bradycardia transient heart block - Continue pacemaker with backup rate this has been adjusted by cardiology: Increased rate of 80 has improved hemodynamics Fluids/Renal: -- Acute kidney injury --> improving Monitor BUN/creatinine Avoid nephrotoxic medications Strict ins and outs ID: -- New onset fever Chest x-ray looks clean Urine is dirty Procalcitonin 14.3 Continue with antibiotics to cover for UTI Follow-up urine culture Follow-up blood cultures GI/Nutrition: Transaminitis Secondary to cardiogenic shock and probable congestive hepatopathy Continue to monitor History of hyperlipidemia - Zetia 10 mg and Crestor Heme: -- Normocytic anemia Monitor H&H Transfuse for hemoglobin less than 7.5 Got 1 unit PRBC on 06/08/2025 LDH elevated, fibrinogen within normal limits Negative for anaplasmosis and babesiosis CT abdomen pelvis on 06/07/2025 was negative for retroperitoneal bleed --New onset thrombocytopenia Continue to monitor Endocrine: ICU hyperglycemia protocol Vascular access: Right groin arterial sheath, left subclavian central venous access Code Status: Full code Disposition: ICU --Prophylaxis VTE: Heparin on hold GI: Pantoprazole Lines: Left subclavian, right femoral arterial, peripheral, right groin arterial sheath Sofia Diet: N.p.o. Plan: In/out: In/out: -1 L, urine output 2095, +4.6 L since coming to the hospital Potassium being replaced Mild worsening of the transaminitis, could be from amiodarone drip which she was on. It has since been discontinued She is making good amount of urine. No more diuretics needed. Will get bedside swallow eval today and start clear liquids if she is able to tolerate it. Case discussed with cardiology. Plan is to stop the pacing and see how the patient does. Once the temporary pacemaker is out then we will get the patient out of the bed to chair Family were updated at bedside I have personally spent 36 minutes of critical care time in the direct management of this patient. This is a life/limb threatening event. This includes time spent evaluating patient, direct bedside care, chart review, placing orders, interpretation of diagnostic studies, discussion with consultants, patient, and family members, as well as other required patient management activities. This time is exclusive of all separately billable procedures, and teaching time and separate from and in addition to any other critical care service time. Please note the above document was generated using voice recognition software. It may contain grammatical, syntax or spelling errors. Admission and Anticipated Discharge Date Admission Date: June 05, 2025 Subjective Patient seen and examined at bedside. No acute distress, no adverse events overnight Patient was on 0.03 of Levophed at time of examination She used BiPAP overnight She was saturating 93% on room air when I saw her Denied any chest pain, no abdominal pain Did say that she seems puffy. Review of Systems 2 Review of Systems: All systems reviewed & are unremarkable except as noted in Subjective Physical Exam 2 Physical Exam: Constitutional: No acute distress HEENT: EOMI, PERRLA Respiratory system: Decreased air entry bilaterally, no wheeze, no rhonchi, positive crackles bilateral lower lobe CVS: S1-S2 positive Abdomen: Soft, nontender, nondistended, positive bowel sounds x4 Extremities: +2 pulses bilaterally radialis/ dorsalis pedis, no cyanosis, +1 pitting edema bilateral lower extremity and upper extremity Neuro: Awake alert oriented x 3 Psych: Normal mood and affect G/U: Positive Sofia Skin: no rashes, warm and dry Lymphatic: no cervical or axillary lymphadenopathy Results & Data Results & Data Vital Signs (Past 12 Hours) Vital Signs Temp Pulse Resp BP Pulse Ox O2 Del Method O2 Flow Rate 06/09/25 07:00 36.9 C 74 30 H 97 Nasal Cannula 2 06/09/25 06:30 37.2 C 70 21 98 Nasal Cannula 2 06/09/25 05:09 37.2 C 70 21 98 Nasal Cannula 2 06/09/25 04:00 73 126/51 L 06/09/25 04:00 37.2 C 70 23 97 BiPAP 06/09/25 03:18 37.2 C 70 19 97 BiPAP 06/09/25 02:34 70 24 97 06/09/25 02:09 37.3 C 70 22 96 BiPAP 06/09/25 01:30 37.3 C 70 21 96 BiPAP 06/09/25 00:12 37.3 C 70 26 H 97 BiPAP 06/09/25 00:00 70 110/44 L 06/08/25 23:19 71 06/08/25 23:06 37.4 C 70 25 H 96 BiPAP 06/08/25 22:03 37.5 C 70 22 96 BiPAP 06/08/25 21:50 71 25 H 97 06/08/25 21:36 37.6 C H 72 23 98 Nasal Cannula 2 06/08/25 20:35 Nasal Cannula 2 06/08/25 20:01 37.7 C H 76 20 127/60 95 5 06/08/25 20:00 37.7 C H 78 32 H 93/72 L 100 Oxymask 5 06/08/25 20:00 76 118/47 L FiO2 06/09/25 07:00 06/09/25 06:30 06/09/25 05:09 06/09/25 04:00 06/09/25 04:00 06/09/25 03:18 25 06/09/25 02:34 25 06/09/25 02:09 06/09/25 01:30 06/09/25 00:12 06/09/25 00:00 06/08/25 23:19 06/08/25 23:06 06/08/25 22:03 25 06/08/25 21:50 25 06/08/25 21:36 06/08/25 20:35 06/08/25 20:01 06/08/25 20:00 06/08/25 20:00 Laboratory Results 06/09/25 04:42 06/09/25 04:42 Coding Level of Care Code 74643 CRITICAL CARE 1ST 30-74M Diagnoses Acute hyponatremia E87.1 Acute tubular necrosis N17.[address] elevation myocardial infarction (STEMI) of inferior wall I21.19 Complete heart block, transient I44.2 Syncope and collapse R55 Chronic diastolic CHF (congestive heart failure) I50.32 Hyperlipidemia E78.5 Coronary artery disease involving [place] coronary artery of [place] heart with angina pectoris I25.119 Associated angina: with unspecified form of angina Coronary Disease-Associated Artery/Lesion type: [place] artery [place] vs. transplanted heart: [place] heart Shock circulatory R57.9 ZORAN (acute kidney injury) N17.9 (8) CAD (coronary artery disease) Associated angina: with unspecified form of angina Coronary Disease- Associated Artery/Lesion type: [place] artery [place] vs. transplanted heart: n ative heart Qualified Code(s): I25.119 - Atherosclerotic heart disease of [place] coronary artery with unspecified angina pectoris
--- NOTE | 2025-06-09 10:00 | Nephrology Progress Note ---
Date of Service June 09, 2025 Assessment & Plan (1) ZORAN (acute kidney injury): (2) Acute hyponatremia: (3) Hypocalcemia: (4) Acute hepatic failure: (5) Acute ST elevation myocardial infarction (STEMI) of inferior wall: (6) Cardiogenic shock: (7) Symptomatic bradycardia: Plan 84-year-old female with recent kidney function in, baseline creatinine 1.0-1.1 mg/dl, admitted to the hospital with cardiogenic shock and STEMI, had 2 RCA stent and currently intubated and on multiple pressor. On admission creatinine was 1.0 but over last 24 hours developed acute kidney injury most likely secondary to ATN in the setting of cardiogenic shock with rapid worsening of kidney function noted creatinine was 2.0 yesterday and 2.4 this morning. Electrolyte abnormality noted including hypokalemia, hypocalcemia and hypomagnesemia. Clinically volume overloaded and however no significant issues with ventilation. Urine output has been slightly low. Overall clinically doing better. Urine output started to improve and kidney function improving, creatinine stable at oh 2.0 mg/dl. --slow recovery from ZORAN with hypotension, still requiring pressor, dose medications for eGFR less than 30 --Avoid nephrotoxic medications. --monitor intake and output, aim to keep net even Admission and Anticipated Discharge Date Admission Date: June 05, 2025 Subjective Raeann was seen and evaluated this morning. Overall doing much better, blood pressure still low, still requiring low-dose pressor. Urine output improved, negative more than 1 L after 1 dose of Lasix yesterday after blood transfusion. Pressor requirement going down. Slow recovery from ZORAN, creatinine stable at 2.0 mg/dl. Review of Systems 2 Review of Systems: Detailed review of system was done and pertinent positives and negatives are mentioned above. Physical Exam Constitutional: WD/WN, vitals as above no acute distress Eyes: + anicteric sclerae Respiratory: Auscultation: + diminished lung sounds Cardiovascular: Rate/Rhythm: regular rate and regular rhythm Extremities: no edema Musculoskeletal: Extremities: extremities normal to inspection Skin: no rashes, warm and dry Results & Data Vital Signs (Past 12 Hours) Vital Signs Temp Pulse Resp BP Pulse Ox O2 Del Method O2 Flow Rate 06/09/25 09:33 36.8 C 70 20 96 Room Air 06/09/25 09:31 96/53 L 06/09/25 09:21 36.9 C 70 21 93 06/09/25 09:15 107/47 L 06/09/25 09:09 36.8 C 69 22 95 06/09/25 09:00 102/54 L 06/09/25 09:00 36.9 C 74 22 89 L 06/09/25 08:46 93/43 L 06/09/25 08:42 37.0 C 70 23 93 06/09/25 08:30 36.9 C 70 21 96 06/09/25 08:30 90/43 L 06/09/25 08:24 37.0 C 70 26 H 98 06/09/25 08:05 Nasal Cannula 2 06/09/25 08:03 37.2 C 73 21 95 06/09/25 08:02 99/51 L 06/09/25 07:54 37.1 C 72 22 97 06/09/25 07:48 37.1 C 70 24 96 06/09/25 07:30 37.1 C 70 22 96 06/09/25 07:15 37.0 C 70 25 H 100 06/09/25 07:00 70 06/09/25 07:00 36.9 C 74 30 H 97 Nasal Cannula 2 06/09/25 06:30 37.2 C 70 21 98 Nasal Cannula 2 06/09/25 05:09 37.2 C 70 21 98 Nasal Cannula 2 06/09/25 04:00 73 126/51 L 06/09/25 04:00 37.2 C 70 23 97 BiPAP 06/09/25 03:18 37.2 C 70 19 97 BiPAP 06/09/25 02:34 70 24 97 06/09/25 02:09 37.3 C 70 22 96 BiPAP 06/09/25 01:30 37.3 C 70 21 96 BiPAP 06/09/25 00:12 37.3 C 70 26 H 97 BiPAP 06/09/25 00:00 70 110/44 L 06/08/25 23:19 71 06/08/25 23:06 37.4 C 70 25 H 96 BiPAP 06/08/25 22:03 37.5 C 70 22 96 BiPAP FiO2 06/09/25 09:33 06/09/25 09:31 06/09/25 09:21 06/09/25 09:15 06/09/25 09:09 06/09/25 09:00 06/09/25 09:00 06/09/25 08:46 06/09/25 08:42 06/09/25 08:30 06/09/25 08:30 06/09/25 08:24 06/09/25 08:05 06/09/25 08:03 06/09/25 08:02 06/09/25 07:54 06/09/25 07:48 06/09/25 07:30 06/09/25 07:15 06/09/25 07:00 06/09/25 07:00 06/09/25 06:30 06/09/25 05:09 06/09/25 04:00 06/09/25 04:00 06/09/25 03:18 25 06/09/25 02:34 25 06/09/25 02:09 25 06/09/25 01:30 06/09/25 00:12 06/09/25 00:00 06/08/25 23:19 06/08/25 23:06 25 06/08/25 22:03 25 PG Care Time/CCT Total # of Minutes Spent Total Time Spent with Patient: Total time spent is greater than 50% in coordination of care (as documented) at patient's floor/unit and/or counseling patient: Coding Level of Care Code 59543 SUB INP/OBS CARE 2MIN Diagnoses ZORAN (acute kidney injury) N17.9 Acute hyponatremia E87.1 Hypocalcemia E83.51 Acute hepatic failure K72.[address] elevation myocardial infarction (STEMI) of inferior wall I21.19 Cardiogenic shock R57.0 Symptomatic bradycardia R00.1
[2025-06-09] MEDS ORDERED: Nursing to Pharmacy Communication SCH (11:30)
[2025-06-09] MEDS: INSULIN ASPART PER UNIT CHARGE SC SCH (11:36)
[2025-06-09] MEDS ORDERED: MoRPHine SULFATE 2 MG/ML CARP IV PRN ×2 (11:41→11:42)
--- NOTE | 2025-06-09 12:13 | Cardiology Progress Note ---
Date of Service June 09, 2025 Assessment & Plan (1) Syncope and collapse: Plan: Likely due to transient AV block in the setting of an RCA infarct. Currently conducting well without evidence of AV block. No indication for permanent pacemaker. (2) ST elevation (STEMI) myocardial infarction: Plan: Recurrent inferior ST elevation [place] of the RCA. Successful PCI. 2 drug-eluting stents placed in the RCA. Overall LV function and. Adequate on her initial echocardiogram. However, still requiring significant pressor support. 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 Hemodynamically improving. Extubated yesterday. Weaning pressor support. (3) CAD (coronary artery disease): Plan: Severe multivessel coronary disease. Prior two-vessel CABG with HANKS to LAD and SVG to diagonal/ramus. When hemodynamics improve we can continue her outpatient regimen for secondary prevention. (4) Hyperlipidemia: Plan: Patient is high risk. High intensity statin therapy with rosuvastatin and Zetia. (5) Hypertension: Plan: Currently with some hypotension although improving. Now on low-dose norepinephrine. Hopefully can be discontinued later today. (6) Cardiogenic shock: Plan: Possibly a contribution from distributive shock given the fever. Overall improving. Hopefully can be weaned from norepinephrine later this morning. Will look towards discontinuing the arterial and venous femoral sheaths. Pacemaker was also turned off today and she seems to be maintaining good heart rates and blood pressures. Plan Anemia: No evidence of continued blood loss. Hemoglobin appears to have stabilized. Likely distributive. CT scan did not demonstrate retroperitoneal hemorrhage. Admission and Anticipated Discharge Date Admission Date: June 05, 2025 Subjective This morning patient clinically feeling well. She denied any symptoms of pain. She denied any breathing difficulty. She was tolerating a clear liquid diet. Review of Systems Review of Systems: Per HPI Physical Exam Physical Exam: Alert. Oriented. Answer questions appropriately. HEENT: Sclerae are anicteric. Lungs: Bronchial breath sounds. No wheezing. No rales. Cardiac: The rhythm was regular. S1 and S2 were normal. There are no murmurs on examination. Extremities: Patient has bilateral radial pulses that are equal in intensity. There is no evidence cyanosis or clubbing. Some ecchymoses. Some swelling of the hands and mild edema of the lower extremities. Skin: There are no rashes noted on examination today. Results & Data Vital Signs (Past 12 Hours) Vital Signs Temp Pulse Resp BP Pulse Ox O2 Del Method O2 Flow Rate 06/09/25 09:33 36.8 C 70 20 96 Room Air 06/09/25 09:31 96/53 L 06/09/25 09:21 36.9 C 70 21 93 06/09/25 09:15 107/47 L 06/09/25 09:09 36.8 C 69 22 95 06/09/25 09:00 102/54 L 06/09/25 09:00 36.9 C 74 22 89 L 06/09/25 08:46 93/43 L 06/09/25 08:42 37.0 C 70 23 93 06/09/25 08:30 36.9 C 70 21 96 06/09/25 08:30 90/43 L 06/09/25 08:24 37.0 C 70 26 H 98 06/09/25 08:05 Nasal Cannula 2 06/09/25 08:03 37.2 C 73 21 95 06/09/25 08:02 99/51 L 06/09/25 08:00 Room Air 06/09/25 07:54 37.1 C 72 22 97 06/09/25 07:48 37.1 C 70 24 96 06/09/25 07:30 37.1 C 70 22 96 06/09/25 07:15 37.0 C 70 25 H 100 06/09/25 07:00 70 06/09/25 07:00 36.9 C 74 30 H 97 Nasal Cannula 2 06/09/25 06:30 37.2 C 70 21 98 Nasal Cannula 2 06/09/25 05:09 37.2 C 70 21 98 Nasal Cannula 2 06/09/25 04:00 73 126/51 L 06/09/25 04:00 37.2 C 70 23 97 BiPAP 06/09/25 03:18 37.2 C 70 19 97 BiPAP 06/09/25 02:34 70 24 97 06/09/25 02:09 37.3 C 70 22 96 BiPAP 06/09/25 01:30 37.3 C 70 21 96 BiPAP 06/09/25 00:12 37.3 C 70 26 H 97 BiPAP FiO2 06/09/25 09:33 06/09/25 09:31 06/09/25 09:21 06/09/25 09:15 06/09/25 09:09 06/09/25 09:00 06/09/25 09:00 06/09/25 08:46 06/09/25 08:42 06/09/25 08:30 06/09/25 08:30 06/09/25 08:24 06/09/25 08:05 06/09/25 08:03 06/09/25 08:02 06/09/25 08:00 06/09/25 07:54 06/09/25 07:48 06/09/25 07:30 06/09/25 07:15 06/09/25 07:00 06/09/25 07:00 06/09/25 06:30 06/09/25 05:09 06/09/25 04:00 06/09/25 04:00 06/09/25 03:18 06/09/25 02:34 06/09/25 02:09 06/09/25 01:30 06/09/25 00:12 25 Laboratory Results Abnormal Lab Results 06/07/25 06/08/25 06/08/25 10:51 12:42 14:50 WBC RBC Hgb 7.0 L Hct 20.4 L* MCV MCH MCHC RDW Std Deviation RDW Coeff of Randell Plt Count MPV Immature Gran % (Auto) Neut % (Auto) Lymph % (Auto) Brooke % (Auto) Eos % (Auto) Baso % (Auto) Reticulocyte % (Auto) Neut # (Auto) Lymph # (Auto) Brooke # (Auto) Eos # (Auto) Baso # (Auto) Reticulocyte # Immature Gran # (Auto) Dohle Bodies Polychromasia Ovalocytes Acanthocytes (Spur) Peripher Smr Path Cons PT 11.9 INR 1.1 Fibrinogen Sodium Potassium Chloride Carbon Dioxide Anion Gap BUN Creatinine Est Cr Clr Drug Dosing eGFR BUN/Creatinine Ratio Glucose POC Glucose POC Glucose (other) 125 H Lactate Calcium Phosphorus Magnesium Transferrin Total Bilirubin Direct Bilirubin AST ALT Alkaline Phosphatase Lactate Dehydrogenase Total Protein Albumin Procalcitonin Anaplasma Smear Babesia Smear Blood Type O Positive Antibody Screen NEGATIVE Crossmatch See Detail 06/08/25 06/08/25 06/09/25 16:48 18:46 00:10 WBC RBC Hgb 8.3 L Hct MCV MCH MCHC RDW Std Deviation RDW Coeff of [place]ell Plt Count MPV Immature Gran % (Auto) Neut % (Auto) Lymph % (Auto) Brooke % (Auto) Eos % (Auto) Baso % (Auto) Reticulocyte % (Auto) 2.25 H Neut # (Auto) Lymph # (Auto) Brooke # (Auto) Eos # (Auto) Baso # (Auto) Reticulocyte # 0.050 Immature Gran # (Auto) Dohle Bodies Polychromasia Ovalocytes Acanthocytes (Spur) Peripher Smr Path Cons PT INR Fibrinogen 681 H Sodium Potassium Chloride Carbon Dioxide Anion Gap BUN Creatinine Est Cr Clr Drug Dosing eGFR BUN/Creatinine Ratio Glucose POC Glucose POC Glucose (other) 122 H Lactate Calcium Phosphorus Magnesium Transferrin 124 L Total Bilirubin Direct Bilirubin AST ALT Alkaline Phosphatase Lactate Dehydrogenase 268 H 368 H Total Protein Albumin Procalcitonin Anaplasma Smear See Comment Babesia Smear See Comment Blood Type Antibody Screen Crossmatch 06/09/25 06/09/25 06/09/25 00:13 04:42 11:25 WBC 11.49 H RBC 2.91 L Hgb 8.2 L Hct 24.5 L MCV 84.2 MCH 28.2 MCHC 33.5 RDW Std Deviation 50.7 H RDW Coeff of Randell 16.6 H Plt Count 94 L MPV 11.6 Immature Gran % (Auto) 2.9 Neut % (Auto) 87.5 Lymph % (Auto) 3.0 Brooke % (Auto) 5.9 Eos % (Auto) 0.1 Baso % (Auto) 0.6 Reticulocyte % (Auto) Neut # (Auto) 10.06 H Lymph # (Auto) 0.34 L Brooke # (Auto) 0.68 H Eos # (Auto) 0.01 Baso # (Auto) 0.07 Reticulocyte # Immature Gran # (Auto) 0.33 H Dohle Bodies 1+ Polychromasia 1+ Ovalocytes 1+ Acanthocytes (Spur) 1+ Peripher Smr Path Cons PT INR Fibrinogen Sodium 135 L Potassium 3.4 L Chloride 105 Carbon Dioxide 22 Anion Gap 8 BUN 29 H Creatinine 1.95 H Est Cr Clr Drug Dosing 20.1 eGFR 24.77 BUN/Creatinine Ratio 14.9 Glucose 109 H POC Glucose 127 H 92 POC Glucose (other) Lactate 1.0 Calcium 7.5 L Phosphorus 4.9 Magnesium 2.3 Transferrin Total Bilirubin 1.5 H Direct Bilirubin 0.5 H AST 101 H ALT 73 H Alkaline Phosphatase 75 Lactate Dehydrogenase Total Protein 4.8 L Albumin 2.6 L Procalcitonin 10.00 H Anaplasma Smear Babesia Smear Blood Type Antibody Screen Crossmatch PG Care Time/CCT Total # of Minutes Spent Total Time Spent with Patient: Total time spent is greater than 50% in coordination of care (as documented) at patient's floor/unit and/or counseling patient: Coding Level of Care Code 86835 SUB INP/OBS CARE 2/35MIN Diagnoses Syncope and collapse R55 ST elevation myocardial infarction involving right coronary artery I21.11 Involved coronary artery: right coronary artery Coronary artery disease involving [place] coronary artery of [place] heart with angina pectoris I25.119 Coronary Disease-Associated Artery/Lesion type: [place] artery [place] vs. transplanted heart: [place] heart Associated angina: with unspecified form of angina Hyperlipidemia E78.5 Hypertension I10 Cardiogenic shock R57.0 (2) ST elevation (STEMI) myocardial infarction Involved coronary artery: right coronary artery Qualified Code(s): I21.11 - ST elevation (STEMI) myocardial infarction involving right coronary artery (3) CAD (coronary artery disease) Coronary Disease-Associated Artery/Lesion type: [place] artery [place] vs. transplanted heart: [place] heart Associated angina: with unspecified form of angina Qualified Code(s): I25.119 - Atherosclerotic heart disease of [place] coronary artery with unspecified angina pectoris
[2025-06-09] MEDS: PIPERACILLIN/TAZOBACTAM 4.5 GM/100 ML BAG IV SCH (12:45)
--- NOTE | 2025-06-09 23:06 | Hospitalist Progress Note ---
Date of Service June 09, 2025 Assessment & Plan (1) Acute ST elevation myocardial infarction (STEMI) of inferior wall: Plan: To address #1, patient underwent emergent cardiac catheterization (06/05/2025, 1:04pm, [facility] Interventional CARDS Dr. Amari Valles) with successful deployment of "2 overlapping drug-eluting stents in the mid and distal RCA covering the previous stent which seemed to harbor thrombus after the angioplasty portion of the procedure." Patient subsequently was loaded with plavix 600mg PO x 1 dose (06/05/2025, 2:54pm) and will start plavix 75mg PO daily (06/06/2025, 9:00am) and continue with her home-scheduled ASA 81mg PO daily (06/06/2025, 9:00am); patient will then continue with both plavix 75mg PO daily and ASA 81mg PO daily for the rest of her life. Patient will also continue with her home-scheduled, high intensity dose rosuvastatin 40mg PO daily and ezetimibe 10mg PO daily. Patient was also started on integrilin 20mg in 6.8 mL IV x 1 dose (first bolus administered on 06/05/2025, 3:38pm), followed by integrilin 20mg in 6.8 mL IV x 1 dose (second bolus administered on 06/05/2025, 3:39pm), followed by integrilin infusion @ 2.06 ug/kg/min (06/05/2025, 6:06pm) for 18 hours, followed by its discontinuation on 06/06/2025, 9:00am. Of final note, patient is being held OFF her home-scheduled metoprolol succinate 12.5mg PO qhs given potential for this medication to cause further bradycardia and/or hypotension. Patient is also not being started on either SHER inhibitor and/or ARB given the potential for either medication to cause further hypotension and/or acute renal injury/failure. cf., admission creatinine 1.19 mg/dL, GFR 44.8 mL/min (06/05/2025, 12:27pm). cf., TTE (06/05/2025, 3:54pm): 1. LV EF 60-65%. Regional wall motion abnormalities including mild hypokinesis of inferior wall from base to mid ventricle. 2. RV ventricle mildly dilated with RV systolic function moderately reduced. 3. LA size normal. 4. MV anatomy normal. 5. Very small posterior pericardial effusion. (as per CARDS Dr. Bran Field). Patient continues to receive plavix 75mg PO daily, ASA 81mg PO daily, rosuvastatin 40mg PO daily, and ezetimibe 10mg PO daily. Now off vasopressors (2) Cardiogenic shock: Plan: To address #2, patient was started on dual pressor support utilizing norepinephrine 4mg IV x 1 dose (06/05/2025, 2:50pm), followed by norepinephrine infusion @ 0.2ug/kg/min (06/05/2025, 4:08pm) and dopamine infusion @ 7.5ug/kg/min (06/05/2025, 3:30pm), as well as 1 liter of 0.9% NS @ 75 mL/hr (06/05/2025, 4:26pm), all to maintain MAP > 65 mm Hg, and to "Gradually wean these down. Since we were relatively quick in getting reperfusion I am hopeful that she will be able to maintain blood pressure without vasopressors by tomorrow." (as per [facility] Interventional CARDS Dr. Amari Valles) on 06/05/2025. In addition, patient was also loaded with anti-arrhythmic agent amiodarone 300mg IV x 1 dose (06/05/2025, 3:37pm), followed by amiodarone 150mg IV x 1 dose @ 600 mL/hr (06/05/2025, 4:09pm), followed by amiodarone infusion @ 1mg/min (, 4:27pm), to prophylax against potential ventricular arrhythmias that may arise post-cardiac catheterization in this patient with recurrent acute inferior wall STEMI and cardiogenic shock. Now off vasopressors (3) Acute tubular necrosis: Plan: Patient's renal function appears to be improving today () Etiology of acute renal injury is attributed to acute tubular necrosis, which in turn, is due to acute cardiogenic shock, which in turn, is due to acute inferior wall STEMI. renal function has improved. (4) Acute hepatic failure: Plan: Patient's transaminase levels initially increased, as shown below: cf., AST 27, ALT 27, ALK PHOS 36, TBili 1.3, albumin 4.0 (06/05/2025, 12:27pm). cf., AST 167, ALT 135, ALK PHOS 31, TBili 0.8, albumin 2.8 (06/06/2025, 5:11am). cf., AST 65, ALT 80, ALK PHOS 40, TBili 1.0, albumin 2.7 (06/07/2025, 4:35am). cf., AST 41, ALT 56, ALK PHOS 39, TBili 1.0, albumin 2.5 (06/08/2025, 3:37am). Patient's liver's synthetic function remains intact: cf., INR 1.0 (06/05/2025, 12:27pm). cf., INR 1.0 (06/06/2025, 6:22am). cf., INR 1.3 (06/07/2025, 2:23pm). Now off vasopressors, will repeat in AM (5) Acute hyponatremia: Plan: Patient's sodium level has declined: cf., Na 140 mmol/L (06/05/2025, 12:27pm). cf., Na 132 mmol/L (06/06/2025, 5:11am). cf., Na 130 mmol/L (06/07/2025, 4:35am). cf., Na 133 mmol/L (06/07/2025, 9:48am). cf., Na 133 mmol/L (06/08/2025, 3:37am). Etiology of acute hyponatremia is probably due to a combination of (a) acute dehydration in the NPO state due to mechanical intubation/ventilation on Assist Control with TV 400 mL, RR 19 breaths/minute, PEEP 5 cm H2O, and FIO2 = 0.3 (06/06/2025, 10:25am); and/or (b) SIADH in the setting of acute RV systolic CHF, which in turn, is due to acute cardiogenic shock, which in turn, is due to acute inferior wall STEMI. Hence, patient has already received 1 liter of 0.9% NS @ 75 mL/hr (start date/time, 06/05/2025, 4:26pm) and continues to receive 1 liter of 0.9% NS @ 75 mL/hr (start date/time, 06/06/2025, 4:42am) to mitigate further declines in Na levels over the next 24-48 hours, hopefully. Stay tuned. (6) Hypocalcemia: Plan: Patient's calcium level remains low, as shown below: cf., Ca 9.1, albumin 4.0, Ca corrected 9.1 (06/05/2025, 12:27pm). cf., Ca 6.8, albumin 2.8, Ca corrected 7.8 (06/06/2025, 5:11am). cf., Ca 7.1, albumin 2.7, Ca corrected 8.1 (06/07/2025, 4:35am). cf., Ca 7.2, albumin 2.5, Ca corrected 8.4 (06/08/2025, 3:37am). Etiology of acute hypocalcemia is probably due to acute dehydration in the NPO state due to mechanical intubation/ventilation. Hence, patient received calcium gluconate 1g IV x 3 doses (06/06/2025, 6:00am, 6:35am, and 6:49am). Hence, patient received calcium gluconate 1g IV x 1 dose (06/07/2025, 10:31am). Hence, patient received calcium gluconate 1g IV x 2 doses (06/08/2025, 9:42am, 12:06pm) to mitigate further declines in Ca levels over the next 24-48 hours, hopefully. Stay tuned. (7) Hypomagnesemia: Plan: Patient's magnesium level has returned to normal, as shown below: cf., Mg 2.2 (06/05/2025, 6:05am). cf., Mg 2.1 (06/06/2025, 12:27pm). cf., Mg 1.5 (06/07/2025, 4:35am). cf., Mg 2.3 (, 3:37am). Etiology of acute hypomagnesemia was probably due to acute dehydration in the NPO state due to mechanical intubation/ventilation. Hence, patient received magnesium sulfate 1g IV x 3 doses (06/07/2025, 8:24am, 10:06am, 12:10pm, 2:16pm). Subsequently, acute hypomagnesemia RESOLVED, as shown above. (8) Acute hypokalemia: Plan: Patient's potassium level has returned to normal, as shown below: cf., K 4.5 (06/05/2025, 12:27pm). cf., K 3.4 (06/06/2025, 5:11am). cf., K 3.8 (06/07/2025, 4:35am). cf., K 3.5 (06/07/2025, 9:48am). cf., K 3.7 (06/08/2025, 3:37am). Etiology of acute hypokalemia was probably due to acute dehydration in the NPO state due to mechanical intubation/ventilation. Hence, patient received potassium chloride 40meq PO x 1 dose (06/06/2025, 9:07am). Hence, patient received potassium chloride 20meq IV x 1 dose (06/07/2025, 8:44am). Subsequently, acute hypokalemia RESOLVED, as shown above, but K level remains less than 4.0 mmol/L on 06/08/2025. Hence, patient received potassium chloride 20meq PO x 1 dose (06/08/2025, 6:00am) to increase K level to more than 4.0 mmol/L, over the next 24-48 hours, hopefully. Stay tuned. (9) Symptomatic bradycardia: Plan: To address #8, patient was continued on stone engraver in ICU bed #E109-1 on admission date 06/05/2025. Continue transvenous PPM in situ as needed, as recommended by [facility] Interventional CARDS Dr. Amari Valles, on 06/05/2025, and who also recommends "that as we titrate down her vasopressor support we keep the transvenous pacemaker in place as she may become profoundly bradycardic without dopamine and norepinephrine. Then, we could start to titrate down the pacer to see if she can sustain a sinus rhythm long-term. She has had more than 1 myocardial infarction in the RCA distribution and I am concerned that she will eventually require permanent pacemaker particularly for us to optimize her medical therapy." 06/06/2025: Patient is not bradycardic with HR 80 bpm (06/06/2025, 10:25am). Continue stone engraver and transvenous PPM in situ as needed. 06/07/2025: Patient is not bradycardic with HR 80 bpm (06/07/2025, 1:53pm). Continue stone engraver and transvenous PPM in situ as needed. (10) Infection: Plan: Etiology of infection remains unclear in this afebrile patient with negative urine culture (06/05/2025, 7:30pm). In addition, portable CXR #1 (06/05/2025, 1:11pm) and portable CXR #2 (06/07/2025, 6:00am) reveal no infiltrate/consolidation to suggest acute bacterial pneumonia. In addition, blood culture #1 (06/07/2025, 10:13am) and blood culture #2 (06/07/2025, 10:51a m) reveal no bacteremia. While WBC has declined to normal, as shown below, patient's peripheral blood smear reveals the presence of toxic vacuoles (06/07/2025, 4:38am) and now toxic vacuoles with Dohle bodies (06/08/2025, 3:37am): WBC 5.74, N46 L39 M11 E3 B1, (06/05/2025, 12:27pm). WBC 20.37, N83 L13 M 2 E1, (06/05/2025, 4:25pm). WBC 11.97, N72 L15 M13, (06/06/2025, 5:11am). WBC 11.81, N78 L12 M10, (06/06/2025, 2:51pm). WBC 5.90, N77 L13 M 9, toxic vacuoles (06/07/2025, 4:38am). (06/07/2025, 9:48am). (06/07/2025, 10:51am). WBC 5.90, N89 L 3 M 6 , toxic vacuoles, Dohle bodies (06/08/2025, 3:37am). While lactic acid levels remain normal, procalcitonin levels are increasing, as shown below: Lactic acid #1 1.5 mmol/L (06/06/2025, 10:57am). Lactic acid #2 1.8 mmol/L (06/08/2025, 8:25am). Procalcitonin #1 6.61 ng/mL (06/07/2025, 10:13am). Procalcitonin #2 14.30 ng/mL (06/08/2025, 8:25am). Hence, I surmise that this patient has an incipient infection that is not being treated adequately by ceftriaxone 2g IV daily x 1 dose (06/07/2025, 8:43am). Hence, I have opted to D/C ceftriaxone 2g IV daily on 06/08/2025, and in its place, I have started the patient on zosyn 4.5g IV q12 (day #/ on 06/08/2025, 8:50am). I will check vitals, chest exam, WBC w/diff, lactic acid, procalcitonin, blood culture #1 (06/07/2025, 10:13am), and blood culture #2 (06/07/2025, 10:51am) in the 06/09/2025 am. Of final note, I have not started patient on vancomycin as patient tested negative for MRSA nares PCR (06/05/2025, 5:20pm). Plan Code status, FULL CODE @ home. ACLS as required. renal function is improving. Possible discharge in next 24-48 h Admission and Anticipated Discharge Date Admission Date: June 05, 2025 Subjective Patient reports feeling much bertter. SHe has no new complaints. Physical Exam Physical Exam: \\ HEENT: Normocephalic; atraumatic. EOMI. PERRL. Lungs: Clear to auscultation and percussion. N Heart: RRR, S1S2 Abd: Soft, non-tender, non-distended. Ext: No clubbing, cyanosis, or edema. 2+ pedal pulses bilaterally. Skin: No decubitus ulcer, exanthem, or enanthem. Neuro: Alert and oriented in regards to person, place, time, or situation. No myoclonus, tremors, or tics. Results & Data Results & Data Vital Signs (Past 12 Hours) Vital Signs Temp Pulse Resp BP Pulse Ox O2 Del Method 06/09/25 21:00 37.3 C 74 22 123/58 L 94 Room Air 06/09/25 20:30 37.3 C 73 22 121/58 L 93 Room Air 06/09/25 20:08 75 06/09/25 20:00 37.3 C 77 21 125/59 L 95 Room Air 06/09/25 20:00 125/59 L 06/09/25 19:00 37.2 C 74 23 129/60 94 Room Air 06/09/25 18:30 110/55 L 06/09/25 18:01 116/70 06/09/25 18:00 37.0 C 76 19 95 06/09/25 17:45 123/63 06/09/25 17:42 37.0 C 77 24 96 06/09/25 17:36 37.0 C 76 23 93 06/09/25 17:09 37.0 C 75 20 95 06/09/25 17:00 115/70 06/09/25 17:00 115/70 06/09/25 16:55 116/58 L 06/09/25 16:51 36.9 C 75 23 95 06/09/25 16:50 117/54 L 06/09/25 16:50 117/54 L 06/09/25 16:45 113/56 L 06/09/25 16:39 36.9 C 76 24 94 06/09/25 16:36 36.9 C 80 27 H 95 06/09/25 16:35 124/57 L 06/09/25 16:35 124/57 L 06/09/25 16:30 124/55 L 06/09/25 16:20 116/56 L 06/09/25 16:15 124/63 06/09/25 16:12 108/50 L 06/09/25 16:12 36.8 C 80 29 H 96 06/09/25 16:06 36.8 C 79 23 96 06/09/25 16:06 80 06/09/25 16:01 116/53 L 06/09/25 15:51 36.8 C 77 20 98 06/09/25 15:48 36.7 C 74 20 94 06/09/25 15:30 36.7 C 77 20 94 06/09/25 15:15 36.6 C 75 20 95 06/09/25 15:00 116/54 L 06/09/25 15:00 36.6 C 77 21 116/54 L 93 Room Air 06/09/25 14:45 36.7 C 81 20 94 06/09/25 14:33 36.7 C 80 20 95 06/09/25 14:15 36.8 C 76 24 94 06/09/25 14:00 36.8 C 79 18 94 06/09/25 13:48 36.8 C 77 22 93 06/09/25 13:30 36.8 C 79 23 94 06/09/25 13:27 36.8 C 77 23 94 06/09/25 13:09 36.8 C 82 20 93 06/09/25 13:00 123/50 L 06/09/25 12:48 36.8 C 75 22 95 06/09/25 12:45 36.8 C 77 22 96 06/09/25 12:30 36.8 C 77 20 94 06/09/25 12:27 36.8 C 74 23 94 06/09/25 12:03 36.9 C 69 22 93 06/09/25 12:00 121/58 L 06/09/25 11:57 36.9 C 71 23 95 06/09/25 11:51 36.9 C 71 20 94 PG Care Time/CCT Total # of Minutes Spent Total Time Spent with Patient: Total time spent is greater than 50% in coordination of care (as documented) at patient's floor/unit and/or counseling patient: Coding Level of Care Code 01981 SUB INP/OBS CARE 3/50MIN Diagnoses Acute ST elevation myocardial infarction (STEMI) of inferior wall I21.19 Cardiogenic shock R57.0 Acute tubular necrosis N17.0 Acute hepatic failure K72.00 Acute hyponatremia E87.1 Hypocalcemia E83.51 Hypomagnesemia E83.42 Acute hypokalemia E87.6 Symptomatic bradycardia R00.1 Infection B99.9
[2025-06-10 05:17] LABS: Anion Gap 8.0 (3-11); Blood Urea Nitrogen 31.0 mg/dl (6-23); Calcium 7.9 mg/dl (8.6-10.3); Carbon Dioxide 24.0 mmol/L (21-32); Chloride 108.0 mmol/L (98-107); Creatinine Clr Calc Pharmacy 18.5 ml/min; Glucose 82.0 mg/dl (70-99(Fasting)); Potassium 3.3 mmol/L (3.5-5.1); Sodium 140.0 mmol/L (136-145)
[2025-06-10 05:27] LABS: INR 1.0 (0.9-1.1); Prothrombin Time 10.8 Seconds (9.0-12.0)
[2025-06-10 05:31] LABS: Dohle Bodies 1+; Hematocrit (blood only) 28.1 % (37.0-47.0); Hemoglobin 9.4 g/dl (12.0-16.0); Immature Granulocytes # (auto) 0.78 K/uL (0.01-0.20); Immature Granulocytes % (auto) 6.1 %; Mean Corpuscular Hemoglobin 28.1 pg (25.0-34.0); Mean Corpuscular Volume 84.1 fL (80.0-100.0); Platelet Count 117 K/uL (130-400); Polychromasia 1+; RDW Standard Deviation 51.4 fL (36.4-46.3); Red Blood Count 3.34 M/uL (4.20-5.40); White Blood Count 12.75 K/ul (4.8-10.8)
[2025-06-10 05:37] LABS: Alanine Aminotransferase 1401.0 U/L (7-52); Albumin Globulin Ratio 1.2 (0.9-2); Alkaline Phosphatase 341.0 U/L (34-104); Bilirubin,Total 1.7 mg/dl (0.2-1.0); Globulin 2.5 gm/dl (2.5-4.0); Magnesium 2.4 mg/dl (1.7-2.4); Total Protein 5.5 gm/dl (6.0-8.3)
[2025-06-10 07:33] LABS: Creatine Kinase 291.0 U/L (26-192); Lipase 287.0 U/L (11-82)
--- NOTE | 2025-06-10 07:41 | Critical Care Progress Note ---
Date of Service June 10, 2025 Assessment & Plan (1) Acute hyponatremia: (2) Acute tubular necrosis: (3) Acute ST elevation myocardial infarction (STEMI) of inferior wall: (4) Complete heart block, transient: (5) Syncope and collapse: (6) Chronic diastolic CHF (congestive heart failure): (7) Hyperlipidemia: (8) CAD (coronary artery disease): (9) Shock circulatory: (10) ZORAN (acute kidney injury): (11) Elevated liver enzymes: (12) Acute hypokalemia: Plan Reason Critically Ill: 84-year-old female in cardiogenic shock underwent successful drug-eluting stent placement PLAN: Neuro: On fentanyl and midazolam pushes Propofol was discontinued because of negative inotropic effects Resp: -- Acute respiratory failure secondary to cardiogenic shock Extubated 06/08/2025 Continue with BiPAP nightly and as needed shortness of breath CV: -- Cardiogenic shock: Right-sided heart failure Random cortisol 21, on hydrocortisone Continue with vasopressor support to keep MAP greater than 65 -- STEMI with transient complete heart block - s/p 2 Drug-eluting stent to RCA - Dual antiplatelet therapy -- Episode of ventricular fibrillation Amiodarone infusion discontinued Bradycardia transient heart block - Continue pacemaker with backup rate this has been adjusted by cardiology: Increased rate of 80 has improved hemodynamics Fluids/Renal: -- Acute kidney injury --> improving Monitor BUN/creatinine Avoid nephrotoxic medications Strict ins and outs ID: -- New onset fever Chest x-ray looks clean Urine is dirty Procalcitonin 14.3 Continue with antibiotics to cover for UTI Follow-up urine culture Follow-up blood cultures GI/Nutrition: -- Transaminitis getting worse Secondary to cardiogenic shock and probable congestive hepatopathy Continue to monitor Hepatitis panel negative Right upper quadrant ultrasound does not show any significant abnormality other than small amount of sludge but no acute cholecystitis History of hyperlipidemia - Zetia 10 mg and Crestor Heme: -- Normocytic anemia Monitor H&H Transfuse for hemoglobin less than 7.5 Haptoglobin within normal limit, unlikely to be hemolysis Got 1 unit PRBC on 06/08/2025 LDH elevated, fibrinogen within normal limits Negative for anaplasmosis and babesiosis CT abdomen pelvis on 06/07/2025 was negative for retroperitoneal bleed --New onset thrombocytopenia Continue to monitor Endocrine: ICU hyperglycemia protocol Vascular access: Right groin arterial sheath, left subclavian central venous access Code Status: Full code Disposition: ICU --Prophylaxis VTE: Heparin will be resumed GI: Pantoprazole Lines: Left subclavian, right femoral arterial, peripheral, right groin arterial sheath Sofia Diet: Cardiac diet Plan: In/out: -1.6 L, urine output 2765, + 3 L since coming to the hospital Unfortunately the liver function seems to be getting worse. AST and ALT are in the 3000's. Usually goes along with shock liver She has been off vasopressors for almost 24 hours. Blood pressure systolic in the 140s now. She was on Zosyn which can cause transaminitis but unheard of to this degree Will hold Crestor as well as ezetimibe right now Given that the blood culture and urine cultures are negative, Zosyn has been discontinued as patient is not spiking any fever. If the patient spikes fever in the near future would recommend to resume Zosyn Resume heparin given H&H is stable DC Sofia Hemodynamically stable to be downgraded. This includes time spent evaluating patient, direct bedside care, chart review, placing orders, interpretation of diagnostic studies, discussion with consultants, patient, and family members, as well as other required patient management activities. This time is exclusive of all separately billable procedures, and teaching time and separate from and in addition to any other critical care service time. Please note the above document was generated using voice recognition software. It may contain grammatical, syntax or spelling errors. Admission and Anticipated Discharge Date Admission Date: June 05, 2025 Subjective Patient seen and examined at bedside. No acute distress, no adverse events overnight She was saturating well on room air Systolic blood pressure was in the 140s. She is diuresing well. She took some time to get reoriented but then answer the questions appropriately Denied any chest pain, no abdominal pain, no nausea or vomiting. Denied any headache. Review of Systems 2 Review of Systems: All systems reviewed & are unremarkable except as noted in Subjective Physical Exam 2 Physical Exam: Constitutional: No acute distress HEENT: EOMI, PERRLA Respiratory system: Decreased air entry bilaterally, no wheeze, no rhonchi, positive crackles bilateral lower lobe CVS: S1-S2 positive Abdomen: Soft, nontender, nondistended, positive bowel sounds x4 Extremities: +2 pulses bilaterally radialis/ dorsalis pedis, no cyanosis, +1 pitting edema bilateral lower extremity and upper extremity Neuro: Awake alert oriented self and place Psych: Normal mood and affect G/U: Positive Sofia Skin: no rashes, warm and dry Lymphatic: no cervical or axillary lymphadenopathy Results & Data Results & Data Vital Signs (Past 12 Hours) Vital Signs Temp Pulse Resp BP Pulse Ox O2 Del Method 06/10/25 07:01 37.3 C 76 21 136/57 L 91 Room Air 06/10/25 05:00 37.2 C 74 21 142/70 H 92 Room Air 06/10/25 04:00 37.2 C 78 23 92 06/10/25 03:00 37.1 C 74 20 142/73 H 92 Room Air 06/10/25 02:12 37.2 C 78 20 91 06/10/25 01:00 37.1 C 77 22 134/70 94 Room Air 06/10/25 00:00 77 06/10/25 00:00 37.1 C 79 22 136/67 95 Room Air 06/09/25 23:00 37.1 C 75 23 132/67 93 06/09/25 22:00 37.1 C 84 23 135/65 93 Room Air 06/09/25 21:00 37.3 C 74 22 123/58 L 94 Room Air 06/09/25 20:30 37.3 C 73 22 121/58 L 93 Room Air 06/09/25 20:08 75 06/09/25 20:00 37.3 C 77 21 125/59 L 95 Room Air 06/09/25 20:00 125/59 L Laboratory Results 06/10/25 04:45 06/10/25 04:45 Coding Level of Care Code 12008 SUB INP/OBS CARE 3/50MIN Diagnoses Acute hyponatremia E87.1 Acute tubular necrosis N17.[address] elevation myocardial infarction (STEMI) of inferior wall I21.19 Complete heart block, transient I44.2 Syncope and collapse R55 Chronic diastolic CHF (congestive heart failure) I50.32 Hyperlipidemia E78.5 Coronary artery disease involving [place] coronary artery of [place] heart with angina pectoris I25.119 Associated angina: with unspecified form of angina Coronary Disease-Associated Artery/Lesion type: [place] artery [place] vs. transplanted heart: [place] heart Shock circulatory R57.9 ZORAN (acute kidney injury) N17.9 Elevated liver enzymes R74.8 Acute hypokalemia E87.6 (8) CAD (coronary artery disease) Associated angina: with unspecified form of angina Coronary Disease- Associated Artery/Lesion type: [place] artery [place] vs. transplanted heart: n ative heart Qualified Code(s): I25.119 - Atherosclerotic heart disease of [place] coronary artery with unspecified angina pectoris
[2025-06-10] MEDS: POTASSIUM CHLORIDE / WTR 20 MEQ/100 ML PLCT IV SCH (09:11)
[2025-06-10] MEDS: POTASSIUM CHLORIDE 20 MEQ/15 ML UDC PO STA (09:11)
[2025-06-10 09:31] LABS: Hep B Surface Ag with confirm Negative (Negative)
[2025-06-10 09:37] LABS: Hep C Ab Rflx HepCQuant RNA Negative (Negative)
--- NOTE | 2025-06-10 09:58 | Nephrology Progress Note ---
Date of Service June 10, 2025 Assessment & Plan (1) ZORAN (acute kidney injury): (2) Acute hyponatremia: (3) Hypocalcemia: (4) Acute hepatic failure: (5) Acute ST elevation myocardial infarction (STEMI) of inferior wall: (6) Cardiogenic shock: (7) Symptomatic bradycardia: Plan 84-year-old female with recent kidney function in, baseline creatinine 1.0-1.1 mg/dl, admitted to the hospital with cardiogenic shock and STEMI, had 2 RCA stent and currently intubated and on multiple pressor. On admission creatinine was 1.0 but over last 24 hours developed acute kidney injury most likely secondary to ATN in the setting of cardiogenic shock with rapid worsening of kidney function noted creatinine was 2.0 yesterday and 2.4 this morning. Electrolyte abnormality noted including hypokalemia, hypocalcemia and hypomagnesemia. Clinically volume overloaded and however no significant issues with ventilation. Urine output has been slightly low. Overall clinically doing better. Urine output improved, net negative. Kidney function was staying relatively stable, creatinine 2.1 mg/dl. --Hemodynamically mediated ZORAN with cardiogenic shock and slow recovery, dose medications for eGFR less than 30 --Avoid nephrotoxic medications. --monitor intake and output, aim to keep net even, encourage increase fluid intake, avoid diuretics as she has been net negative last 2 days Will sign off, please contact if further assistance needed. Admission and Anticipated Discharge Date Admission Date: June 05, 2025 Subjective Raeann was seen and evaluated this morning. She reports feeling much better, denies shortness of breath or chest pain. Blood pressure stable, off of pressor. Decent urine output overall okay. More than 1 L. Kidney function sta edwige relatively stable without significant improvement. Hemoglobin stable. Review of Systems Review of Systems: Detailed review of system was done and pertinent positives and negatives are mentioned above. Physical Exam Constitutional: WD/WN, vitals as above no acute distress Eyes: + anicteric sclerae Respiratory: Auscultation: + diminished lung sounds Cardiovascular: Rate/Rhythm: regular rate and regular rhythm Extremities: no edema Musculoskeletal: Extremities: extremities normal to inspection Skin: no rashes, warm and dry Results & Data Vital Signs (Past 12 Hours) Vital Signs Temp Pulse Resp BP Pulse Ox O2 Del Method 06/10/25 09:00 37.2 C 82 20 93 06/10/25 09:00 146/67 H 06/10/25 08:03 37.3 C 76 23 94 06/10/25 08:01 Room Air 06/10/25 08:00 150/67 H 06/10/25 07:59 Room Air 06/10/25 07:59 78 06/10/25 07:03 37.3 C 77 20 91 Room Air 06/10/25 07:01 37.3 C 76 21 136/57 L 91 Room Air 06/10/25 07:00 136/57 L 06/10/25 05:00 37.2 C 74 21 142/70 H 92 Room Air 06/10/25 04:00 37.2 C 78 23 92 06/10/25 03:00 37.1 C 74 20 142/73 H 92 Room Air 06/10/25 02:12 37.2 C 78 20 91 06/10/25 01:00 37.1 C 77 22 134/70 94 Room Air 06/10/25 00:00 77 06/10/25 00:00 37.1 C 79 22 136/67 95 Room Air 06/09/25 23:00 37.1 C 75 23 132/67 93 06/09/25 22:00 37.1 C 84 23 135/65 93 Room Air PG Care Time/CCT Total # of Minutes Spent Total Time Spent with Patient: Total time spent is greater than 50% in coordination of care (as documented) at patient's floor/unit and/or counseling patient: Coding Level of Care Code 51110 SUB INP/OBS CARE 2/35MIN Diagnoses ZORAN (acute kidney injury) N17.9 Acute hyponatremia E87.1 Hypocalcemia E83.51 Acute hepatic failure K72.[address] elevation myocardial infarction (STEMI) of inferior wall I21.19 Cardiogenic shock R57.0 Symptomatic bradycardia R00.1
[2025-06-10] MEDS ORDERED: ACETAMINOPHEN 325 MG TAB PO PRN (10:09)
--- NOTE | 2025-06-10 10:31 | XRay Report ---
XR chest 1V portable CLINICAL HISTORY: f/u COMPARISON STUDY: 06/07/2025 FINDINGS: There is interval extubation. Stable left central catheter. Stable CABG. Stable cardiomegal y with mild pulmonary vascular congestion. Stable small left pleural effusion and associated consolid ation left lung base. No pneumothorax. IMPRESSION: Interval extubation. Otherwise stable. ACT 112: Negative or not required by law. Electronically signed by: Da Hyman M.D. 06/10/2025 10:29 AM
--- NOTE | 2025-06-10 12:01 | Ultrasound Report ---
US liver CLINICAL HISTORY: Transaminitis. COMPARISON STUDY: CT of the abdomen and pelvis June 07, 2025. FINDINGS: Hepatic echogenicity is within normal limits. There is no biliary ductal dilatation. No gal lstones are identified. A small amount of sludge within the gallbladder is present. There is no gallb ladder wall thickening. Mild gallbladder distention is unchanged. The pancreas is unremarkable by son ography although the pancreatic tail is partially obscured. There is no right hydronephrosis. IMPRESSION: 1. No gallstones or biliary ductal dilatation. 2. Small amount of sludge within the gallbladder. No evidence for acute cholecystitis. ACT 112: Negative or not required by law. Electronically signed by: Ross Call M.D. 06/10/2025 12:00 PM
--- NOTE | 2025-06-10 12:30 | Gastrointestinal Consultation ---
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 May have worsened from amiodarone, but this has since been discontinued. - await results of acute hep panel. - continue to follow LFTs to trend. - recommend supportive care. Supervising Physician Co-Signing Physician Notes I personally saw and examined the patient. I have reviewed the chart and agree with the documentation provided by the MIDDLEWARE ENGINEER including discussion about the assessment, treatment and plan. Briefly, 84 year old female admitted for Acute STEMI and cardiogenic shock and is s/p WILBUR that GI is asked to see for sudden rise in LFTs. 06/10/25 T bili 1.7, D bili 0.6, AST 3489, ALT 1401, Alk 341. 06/10/25 Liver US - No gallstones or biliary ductal dilatation. Small amount of sludge within the gallbladder. No evidence for acute cholecystitis. 06/07/25 CT shown normal liver. This is classic shock liver due to the acute ST elevation UT and cardiogenic shock. There could also be a component of congestive hepatopathy from heart failure. She is clinically doing much better now and is status post drug-eluting stent. The LFTs will peak hopefully in the next 24 to 48 hours and then start to fall. To be complete, we will check hepatitis serologies and ASMA. Supportive care as you are doing History of Present Illness Reason for Consultation: elevated liver functions Requesting Physician: Augie Lion Attending Physician: Augie Lion History of Present Illness Patient is an 84 year old female admitted for Acute STEMI and cardiogenic shock and is s/p WILBUR that GI is asked to see for sudden rise in LFTs. 06/10/25 T bili 1.7, D bili 0.6, AST 3489, ALT 1401, Alk 341. 06/10/25 Liver US - No gallstones or biliary ductal dilatation. Small amount of sludge within the gallbladder. No evidence for acute cholecystitis. 06/07/25 CT shown normal liver. no personal or family history of liver issues per patient. GI ros are unremarkable. she tells me that overall, she is feeling well. Allergies Allergy/AdvReac Type Severity Reaction Status Date / Time No Known Drug Allergies Allergy Verified 01/29/25 13:59 Home Medications Medication Instructions Recorded Confirmed Type biotin 1 mg capsule 1 mg PO QDL 11/18/18 06/05/25 History coenzyme Q10 100 mg capsule 100 mg PO QAM 11/18/18 06/05/25 History (CoQ-10) omega 3 350 mg-dha 235 mg-epa 90 1 cap PO .EVERY 14 DAYS 11/18/18 06/05/25 History mg-fish oil 597 mg capsule,delay rel ([place]-3) multivitamin-ferrous 1 tab PO WK 11/24/18 06/05/25 History fumarate-folic acid 18 mg-400 mcg tablet (Daily Multivitamin with Iron) alendronate 70 mg tablet 70 mg PO Q7D 12/30/19 06/05/25 History aspirin 81 mg tablet,delayed 81 mg PO QAM 12/30/19 06/05/25 History release metronidazole 0.75 % topical cream 1 applic topical DAILY 01/01/23 06/05/25 History cholecalciferol (vitamin D3) 125 2,000 unit PO QDL 04/29/23 06/05/25 History mcg (5,000 unit) tablet (Vitamin D3) cyanocobalamin (vitamin B-12) 2,000 mcg sublingual QDL 04/29/23 06/05/25 History 5,000 mcg/mL sublingual drops (Vitamin B-12) nitroglycerin 0.4 mg sublingual 0.4 mg sublingual Q5M PRN chest 01/14/24 06/05/25 Rx tablet pain #25 tabs ezetimibe 10 mg tablet 10 mg PO QAM 06/03/25 06/05/25 History potassium chloride 10 mEq 10 meq PO BIDM 06/03/25 06/05/25 History tablet,extended release rosuvastatin 40 mg tablet 40 mg PO QDL 06/03/25 06/05/25 History Patient History Medical History Follow-up of acute inferior myocardial infarction Dysphagia Anemia Cardiogenic shock Acute hypotension Chest pain Acute UT Encounter for pre-operative examination Osteopenia Surgical History History of lumpectomy of right breast History of dilatation and curettage History of hysterectomy VAGINAL History of colonoscopy History of cataract surgery BILATERAL History of coronary artery bypass graft X2 VESSELS (22 YEARS AGO) History of cardiac cath NO STENTS (PRIOR TO CABG 22 YEARS AGO) Family History (Updated 06/05/25 @ 18:49 by Mario Taveras MD, PhD) Mother , at 88 years of age from natural causes. Family hx of colon cancer Father , at 68 years of age from COPD due to underlying chronic tobacco abuse. No problems noted. Social History (Updated 06/05/25 @ 18:55 by Mario Taveras MD, PhD) Smoking Status: Never smoker Second Hand Exposure: Yes; Do You Dip or Chew Tobacco: No; Hx Alcohol Use: No Hx Substance Use: No Preferred Language: Mohawk Communication Ability: Unable Project Coach Required: No Beliefs That Will Affect Care: None marital status: marital status details: 1st marriage,10y;;2sons(58y;61y)w ell;1daughter(63y) ovarian CA. Current Living Situation: Spouse Current Living Situation Comment: 2nd marriage, 38y; happily ; no children living/. current occupational status: retired current occupation: Retired How many Children do You have: 2 How many Children do You have Comment: 2sons(58y,lives in [place];61y, lives in [place], [place], 4 adopted Spanish kids)(see below): Other Information That Helps Us Care for You: No other: 17y gabriella steals;16y gabriella large calves;14y son cleftpalate;9y daug hiatalni Feels Safe at Home: Declines to Answer Assistive Devices: Cane and Walker Review of Systems Review of Systems: All systems reviewed & are unremarkable except as noted in HPI & below Physical Exam Constitutional: WD/WN, vitals as above Respiratory: normal respiratory effort, lungs clear to auscultation Cardiovascular: Rate/Rhythm: regular rate and regular rhythm Gastrointestinal (Abdomen): normal bowel sounds, soft, nontender, no hepatosplenomegaly Psychiatric: Orientation: alert and oriented x 3 Affect: euthymic affect Results & Data Vital Signs (Past 12 Hours) Vital Signs Temp Pulse Resp BP Pulse Ox O2 Del Method 06/10/25 11:00 98.8 F 72 24 95 06/10/25 11:00 150/63 H 06/10/25 10:00 98.8 F 75 20 93 Room Air 06/10/25 10:00 136/67 06/10/25 09:00 99.0 F 82 20 93 06/10/25 09:00 146/67 H 06/10/25 08:03 99.1 F 76 23 94 06/10/25 08:01 Room Air 06/10/25 08:00 150/67 H 06/10/25 07:59 Room Air 06/10/25 07:59 78 06/10/25 07:03 99.1 F 77 20 91 Room Air 06/10/25 07:01 99.1 F 76 21 136/57 L 91 Room Air 06/10/25 07:00 136/57 L 06/10/25 05:00 99.0 F 74 21 142/70 H 92 Room Air 06/10/25 04:00 99.0 F 78 23 92 06/10/25 03:00 98.8 F 74 20 142/73 H 92 Room Air 06/10/25 02:12 99.0 F 78 20 91 06/10/25 01:00 98.8 F 77 22 134/70 94 Room Air Coding Level of Care Code 45390 INT INP/OBS CARE 2/55MIN Diagnoses Elevated liver enzymes R74.8
--- NOTE | 2025-06-10 16:48 | Cardiology Progress Note ---
Date of Service June 10, 2025 Assessment & Plan (1) Syncope and collapse: Plan: Likely due to transient AV block in the setting of an RCA infarct. Currently conducting well without evidence of AV block. No indication for permanent pacemaker. (2) ST elevation (STEMI) myocardial infarction: Plan: Recurrent inferior ST elevation ID of the RCA. Successful PCI. 2 drug-eluting stents placed in the RCA. Overall LV function and. Adequate on her initial echocardiogram. However, still requiring significant pressor support. Curiously, she had a similar post ID course after her infarct in 2021. Hemodynamics and pulmonary status have been stable. (3) CAD (coronary artery disease): Plan: Severe multivessel coronary disease. Prior two-vessel CABG with HANKS to LAD and SVG to diagonal/ramus. (4) Hyperlipidemia: Plan: Patient is high risk. High intensity statin therapy with rosuvastatin and Zetia. (5) Hypertension: Plan: Blood pressure much improved. (6) Cardiogenic shock: Plan: Resolved. Plan I think we will try low-dose beta-blockade tomorrow. This primarily for her STEMI. Conduction appears to be adequate. Overall LV systolic function is good so likely little benefit for more aggressive treatment. There does not appear to be an opportunity for SHER inhibition at this point given her renal dysfunction. While she does have an element of hypervolemia she is affecting a good diuresis on her own and there is no evidence of pulmonary vascular conges tion to prompt more aggressive diuresis. Hopefully she will become more ambulatory tomorrow. Overall much improved. Admission and Anticipated Discharge Date Admission Date: June 05, 2025 Subjective Patient is not feeling well. No breathing difficulty. No chest pain. No sense of palpitation. Apparently she was up in a chair today but not ambulatory yet. Review of Systems Review of Systems: Per HPI Physical Exam Physical Exam: Alert. Oriented. Answer questions appropriately. HEENT: Sclerae are anicteric. Lungs: Bronchial breath sounds. No wheezing. No rales. Cardiac: The rhythm was regular. S1 and S2 were normal. There are no murmurs on examination. Extremities: Patient has bilateral radial pulses that are equal in intensity. There is no evidence cyanosis or clubbing. Some ecchymoses. Some swelling of the hands and mild edema of the lower extremities. Skin: There are no rashes noted on examination today. Results & Data Vital Signs (Past 12 Hours) Vital Signs Temp Pulse Resp BP Pulse Ox O2 Del Method 06/10/25 15:49 36.3 C L 76 20 132/75 94 06/10/25 14:06 37.2 C 81 19 95 06/10/25 13:12 37.1 C 74 23 96 06/10/25 13:00 145/73 H 06/10/25 12:57 37.1 C 83 28 H 93 06/10/25 12:09 37.2 C 71 22 95 06/10/25 11:00 37.1 C 72 24 95 06/10/25 11:00 150/63 H 06/10/25 10:00 37.1 C 75 20 93 Room Air 06/10/25 10:00 136/67 06/10/25 09:00 37.2 C 82 20 93 06/10/25 09:00 146/67 H 06/10/25 08:03 37.3 C 76 23 94 06/10/25 08:01 Room Air 06/10/25 08:00 150/67 H 06/10/25 07:59 Room Air 06/10/25 07:59 78 06/10/25 07:03 37.3 C 77 20 91 Room Air 06/10/25 07:01 37.3 C 76 21 136/57 L 91 Room Air 06/10/25 07:00 136/57 L 06/10/25 05:00 37.2 C 74 21 142/70 H 92 Room Air Laboratory Results Abnormal Lab Results 06/08/25 06/09/25 06/09/25 16:48 17:07 20:56 WBC RBC Hgb Hct MCV MCH MCHC RDW Std Deviation RDW Coeff of Randell Plt Count MPV Immature Gran % (Auto) Neut % (Auto) Lymph % (Auto) [place] % (Auto) Eos % (Auto) Baso % (Auto) Neut # (Auto) Lymph # (Auto) [place] # (Auto) Eos # (Auto) Baso # (Auto) Immature Gran # (Auto) Absolute Nucleated RBC Nucleated RBC % (auto) Dohle Bodies Polychromasia Echinocytes Haptoglobin 148 PT INR Sodium Potassium Chloride Carbon Dioxide Anion Gap BUN Creatinine Est Cr Clr Drug Dosing eGFR BUN/Creatinine Ratio Glucose POC Glucose 91 82 Calcium Phosphorus Magnesium Total Bilirubin Direct Bilirubin AST ALT Alkaline Phosphatase Ammonia Total Creatine Kinase Total Protein Albumin Globulin Albumin/Globulin Ratio Lipase Hep Bs Antigen Hepatitis C Antibody 06/10/25 06/10/25 06/10/25 04:45 07:19 07:51 WBC 12.75 H RBC 3.34 L Hgb 9.4 L Hct 28.1 L MCV 84.1 MCH 28.1 MCHC 33.5 RDW Std Deviation 51.4 H RDW Coeff of [place] 16.9 H Plt Count 117 L MPV 10.4 Immature Gran % (Auto) 6.1 Neut % (Auto) 84.9 Lymph % (Auto) 2.4 [place] % (Auto) 6.1 Eos % (Auto) 0.0 Baso % (Auto) 0.5 Neut # (Auto) 10.82 H Lymph # (Auto) 0.31 L [place] # (Auto) 0.78 H Eos # (Auto) 0.00 Baso # (Auto) 0.06 Immature Gran # (Auto) 0.78 H Absolute Nucleated RBC 0.07 Nucleated RBC % (auto) 0.5 Dohle Bodies 1+ Polychromasia 1+ Echinocytes 1+ Haptoglobin PT 10.8 INR 1.0 Sodium 140 Potassium 3.3 L Chloride 108 H Carbon Dioxide 24 Anion Gap 8 BUN 31 H Creatinine 2.12 H Est Cr Clr Drug Dosing 18.5 eGFR 22.41 BUN/Creatinine Ratio 14.6 Glucose 82 POC Glucose 102 H Calcium 7.9 L Phosphorus 4.1 Magnesium 2.4 Total Bilirubin 1.7 H Direct Bilirubin 0.6 H AST 3489 H ALT 1401 H Alkaline Phosphatase 341 H D Ammonia Total Creatine Kinase 291 H Total Protein 5.5 L Albumin 3.0 L Globulin 2.5 Albumin/Globulin Ratio 1.2 Lipase 287 H Hep Bs Antigen Negative Hepatitis C Antibody Negative 06/10/25 06/10/25 06/10/25 08:36 11:12 16:05 WBC RBC Hgb Hct MCV MCH MCHC RDW Std Deviation RDW Coeff of [place] Plt Count MPV Immature Gran % (Auto) Neut % (Auto) Lymph % (Auto) [place] % (Auto) Eos % (Auto) Baso % (Auto) Neut # (Auto) Lymph # (Auto) [place] # (Auto) Eos # (Auto) Baso # (Auto) Immature Gran # (Auto) Absolute Nucleated RBC Nucleated RBC % (auto) Dohle Bodies Polychromasia Echinocytes Haptoglobin PT INR Sodium Potassium Chloride Carbon Dioxide Anion Gap BUN Creatinine Est Cr Clr Drug Dosing eGFR BUN/Creatinine Ratio Glucose POC Glucose 151 H 115 H Calcium Phosphorus Magnesium Total Bilirubin Direct Bilirubin AST ALT Alkaline Phosphatase Ammonia 53.0 Total Creatine Kinase Total Protein Albumin Globulin Albumin/Globulin Ratio Lipase Hep Bs Antigen Hepatitis C Antibody PG Care Time/CCT Total # of Minutes Spent Total Time Spent with Patient: Total time spent is greater than 50% in coordination of care (as documented) at patient's floor/unit and/or counseling patient: Coding Level of Care Code 73844 SUB INP/OBS CARE 2/35MIN Diagnoses Syncope and collapse R55 ST elevation myocardial infarction involving right coronary artery I21.11 Involved coronary artery: right coronary artery Coronary artery disease involving hoh coronary artery of hoh heart with angina pectoris I25.119 Coronary Disease-Associated Artery/Lesion type: hoh artery [place] vs. transplanted heart: hoh heart Associated angina: with unspecified form of angina Hyperlipidemia E78.5 Hypertension I10 Cardiogenic shock R57.0 (2) ST elevation (STEMI) myocardial infarction Involved coronary artery: right coronary artery Qualified Code(s): I21.11 - ST elevation (STEMI) myocardial infarction involving right coronary artery (3) CAD (coronary artery disease) Coronary Disease-Associated Artery/Lesion type: hoh artery [place] vs. transplanted heart: hoh heart Associated angina: with unspecified form of angina Qualified Code(s): I25.119 - Atherosclerotic heart disease of hoh coronary artery with unspecified angina pectoris
[2025-06-10] MEDS: HYDROCORTISONE SOD 50 MG in SYRINGE 0 ML IV SCH (20:27)
--- NOTE | 2025-06-10 23:14 | Hospitalist Progress Note ---
Date of Service June 10, 2025 Assessment & Plan (1) Acute ST elevation myocardial infarction (STEMI) of inferior wall: Plan: To address #1, patient underwent emergent cardiac catheterization (06/05/2025, 1:04pm, [facility] Interventional CARDS Dr. Amari Valles) with successful deployment of "2 overlapping drug-eluting stents in the mid and distal RCA covering the previous stent which seemed to harbor thrombus after the angioplasty portion of the procedure." Patient subsequently was loaded with plavix 600mg PO x 1 dose (06/05/2025, 2:54pm) and will start plavix 75mg PO daily (06/06/2025, 9:00am) and continue with her home-scheduled ASA 81mg PO daily (06/06/2025, 9:00am); patient will then continue with both plavix 75mg PO daily and ASA 81mg PO daily for the rest of her life. Patient will also continue with her home-scheduled, high intensity dose rosuvastatin 40mg PO daily and ezetimibe 10mg PO daily. Patient was also started on integrilin 20mg in 6.8 mL IV x 1 dose (first bolus administered on 06/05/2025, 3:38pm), followed by integrilin 20mg in 6.8 mL IV x 1 dose (second bolus administered on 06/05/2025, 3:39pm), followed by integrilin infusion @ 2.06 ug/kg/min (06/05/2025, 6:06pm) for 18 hours, followed by its discontinuation on 06/06/2025, 9:00am. Of final note, patient is being held OFF her home-scheduled metoprolol succinate 12.5mg PO qhs given potential for this medication to cause further bradycardia and/or hypotension. Patient is also not being started on either SHER inhibitor and/or ARB given the potential for either medication to cause further hypotension and/or acute renal injury/failure. cf., admission creatinine 1.19 mg/dL, GFR 44.8 mL/min (06/05/2025, 12:27pm). cf., TTE (06/05/2025, 3:54pm): 1. LV EF 60-65%. Regional wall motion abnormalities including mild hypokinesis of inferior wall from base to mid ventricle. 2. RV ventricle mildly dilated with RV systolic function moderately reduced. 3. LA size normal. 4. MV anatomy normal. 5. Very small posterior pericardial effusion. (as per CARDS Dr. Bran Field). Patient continues to receive plavix 75mg PO daily, ASA 81mg PO daily, rosuvastatin 40mg PO daily, and ezetimibe 10mg PO daily. Now off vasopressors (2) Cardiogenic shock: Plan: To address #2, patient was started on dual pressor support utilizing norepinephrine 4mg IV x 1 dose (06/05/2025, 2:50pm), followed by norepinephrine infusion @ 0.2ug/kg/min (06/05/2025, 4:08pm) and dopamine infusion @ 7.5ug/kg/min (06/05/2025, 3:30pm), as well as 1 liter of 0.9% NS @ 75 mL/hr (06/05/2025, 4:26pm), all to maintain MAP > 65 mm Hg, and to "Gradually wean these down. Since we were relatively quick in getting reperfusion I am hopeful that she will be able to maintain blood pressure without vasopressors by tomorrow." (as per [facility] Interventional CARDS Dr. Amari Valles) on 06/05/2025. In addition, patient was also loaded with anti-arrhythmic agent amiodarone 300mg IV x 1 dose (06/05/2025, 3:37pm), followed by amiodarone 150mg IV x 1 dose @ 600 mL/hr (06/05/2025, 4:09pm), followed by amiodarone infusion @ 1mg/min (, 4:27pm), to prophylax against potential ventricular arrhythmias that may arise post-cardiac catheterization in this patient with recurrent acute inferior wall STEMI and cardiogenic shock. Now off vasopressors (3) Acute tubular necrosis: Plan: Patient's renal function appears to be improving today () Etiology of acute renal injury is attributed to acute tubular necrosis, which in turn, is due to acute cardiogenic shock, which in turn, is due to acute inferior wall STEMI. renal function slightly worsened.. (4) Acute hepatic failure: Plan: Patient's transaminase levels initially increased, as shown below: cf., AST 27, ALT 27, ALK PHOS 36, TBili 1.3, albumin 4.0 (06/05/2025, 12:27pm). cf., AST 167, ALT 135, ALK PHOS 31, TBili 0.8, albumin 2.8 (06/06/2025, 5:11a m). cf., AST 65, ALT 80, ALK PHOS 40, TBili 1.0, albumin 2.7 (06/07/2025, 4:35am). cf., AST 41, ALT 56, ALK PHOS 39, TBili 1.0, albumin 2.5 (06/08/2025, 3:37am). Patient's liver's synthetic function remains intact: cf., INR 1.0 (06/05/2025, 12:27pm). cf., INR 1.0 (06/06/2025, 6:22am). cf., INR 1.3 (06/07/2025, 2:23pm). Now off vasopressors, LFTs appear worse today. They jumped signifitcantly. Concern for shock liver. ordered hepatitis panel. will consult gastro (5) Acute hyponatremia: Plan: Patient's sodium level has declined: cf., Na 140 mmol/L (06/05/2025, 12:27pm). cf., Na 132 mmol/L (06/06/2025, 5:11am). cf., Na 130 mmol/L (06/07/2025, 4:35am). cf., Na 133 mmol/L (06/07/2025, 9:48am). cf., Na 133 mmol/L (06/08/2025, 3:37am). Etiology of acute hyponatremia is probably due to a combination of (a) acute dehydration in the NPO state due to mechanical intubation/ventilation on Assist Control with TV 400 mL, RR 19 breaths/minute, PEEP 5 cm H2O, and FIO2 = 0.3 ( 06/06/2025, 10:25am); and/or (b) SIADH in the setting of acute RV systolic CHF, which in turn, is due to acute cardiogenic shock, which in turn, is due to acute inferior wall STEMI. Hence, patient has already received 1 liter of 0.9% NS @ 75 mL/hr (start date/time, 06/05/2025, 4:26pm) and continues to receive 1 liter of 0.9% NS @ 75 mL/hr (start date/time, 06/06/2025, 4:42am) to mitigate further declines in Na levels over the next 24-48 hours, hopefully. Stay tuned. (6) Hypocalcemia: Plan: Patient's calcium level remains low, as shown below: cf., Ca 9.1, albumin 4.0, Ca corrected 9.1 (06/05/2025, 12:27pm). cf., Ca 6.8, albumin 2.8, Ca corrected 7.8 (06/06/2025, 5:11am). cf., Ca 7.1, albumin 2.7, Ca corrected 8.1 (06/07/2025, 4:35am). cf., Ca 7.2, albumin 2.5, Ca corrected 8.4 (06/08/2025, 3:37am). Etiology of acute hypocalcemia is probably due to acute dehydration in the NPO state due to mechanical intubation/ventilation. Hence, patient received calcium gluconate 1g IV x 3 doses (06/06/2025, 6:00am, 6:35am, and 6:49am). Hence, patient received calcium gluconate 1g IV x 1 dose (06/07/2025, 10:31am). Hence, patient received calcium gluconate 1g IV x 2 doses (06/08/2025, 9:42am, 12:06pm) to mitigate further declines in Ca levels over the next 24-48 hours, hopefully. Stay tuned. (7) Hypomagnesemia: Plan: Patient's magnesium level has returned to normal, as shown below: cf., Mg 2.2 (06/05/2025, 6:05am). cf., Mg 2.1 (06/06/2025, 12:27pm). cf., Mg 1.5 (06/07/2025, 4:35am). cf., Mg 2.3 (, 3:37am). Etiology of acute hypomagnesemia was probably due to acute dehydration in the NPO state due to mechanical intubation/ventilation. Hence, patient received magnesium sulfate 1g IV x 3 doses (06/07/2025, 8:24am, 10:06am, 12:10pm, 2:16pm). Subsequently, acute hypomagnesemia RESOLVED, as shown above. (8) Acute hypokalemia: Plan: Patient's potassium level has returned to normal, as shown below: cf., K 4.5 (06/05/2025, 12:27pm). cf., K 3.4 (06/06/2025, 5:11am). cf., K 3.8 (06/07/2025, 4:35am). cf., K 3.5 (06/07/2025, 9:48am). cf., K 3.7 (06/08/2025, 3:37am). Etiology of acute hypokalemia was probably due to acute dehydration in the NPO state due to mechanical intubation/ventilation. Hence, patient received potassium chloride 40meq PO x 1 dose (06/06/2025, 9:07am). Hence, patient received potassium chloride 20meq IV x 1 dose (06/07/2025, 8:44am). Subsequently, acute hypokalemia RESOLVED, as shown above, but K level remains less than 4.0 mmol/L on 06/08/2025. Hence, patient received potassium chloride 20meq PO x 1 dose (06/08/2025, 6:00am) to increase K level to more than 4.0 mmol/L, over the next 24-48 hours, hopefully. Stay tuned. (9) Symptomatic bradycardia: Plan: To address #8, patient was continued on air grinder in ICU bed #E109-1 on admission date 06/05/2025. Continue transvenous PPM in situ as needed, as recommended by [facility] Interventional CARDS Dr. Amari Valles, on 06/05/2025, and who also recommends "that as we titrate down her vasopressor support we keep the transvenous pacemaker in place as she may become profoundly bradycardic without dopamine and norepinephrine. Then, we could start to titrate down the pacer to see if she can sustain a sinus rhythm long-term. She has had more than 1 myocardial infarction in the RCA distribution and I am concerned that she will eventually require permanent pacemaker particularly for us to optimize her medical therapy." 06/06/2025: Patient is not bradycardic with HR 80 bpm (06/06/2025, 10:25am). Continue air grinder and transvenous PPM in situ as needed. 06/07/2025: Patient is not bradycardic with HR 80 bpm (06/07/2025, 1:53pm). Continue air grinder and transvenous PPM in situ as needed. (10) Infection: Plan: Etiology of infection remains unclear in this afebrile patient with negative urine culture (06/05/2025, 7:30pm). In addition, portable CXR #1 (06/05/2025, 1:11pm) and portable CXR #2 (06/07/2025, 6:00am) reveal no infiltrate/consoli dation to suggest acute bacterial pneumonia. In addition, blood culture #1 (06/07/2025, 10:13am) and blood culture #2 (06/07/2025, 10:51am) reveal no bacteremia. While WBC has declined to normal, as shown below, patient's peripheral blood smear reveals the presence of toxic vacuoles (06/07/2025, 4:38am) and now toxic vacuoles with Dohle bodies (06/08/2025, 3:37am): WBC 5.74, N46 L39 M11 E3 B1, (06/05/2025, 12:27pm). WBC 20.37, N83 L13 M 2 E1, (06/05/2025, 4:25pm). WBC 11.97, N72 L15 M13, (06/06/2025, 5:11am). WBC 11.81, N78 L12 M10, (06/06, 2:51pm). WBC 5.90, N77 L13 M 9, toxic vacuoles (06/07/2025, 4:38am). (06/07/2025, 9:48am). (06/07/2025, 10:51am). WBC 5.90, N89 L 3 M 6 , toxic vacuoles, Dohle bodies (06/08/2025, 3:37am). While lactic acid levels remain normal, procalcitonin levels are increasing, as shown below: Lactic acid #1 1.5 mmol/L (06/06/2025, 10:57am). Lactic acid #2 1.8 mmol/L (06/08/2025, 8:25am). Procalcitonin #1 6.61 ng/mL (06/07/2025, 10:13am). Procalcitonin #2 14.30 ng/mL (06/08/2025, 8:25am). Hence, I surmise that this patient has an incipient infection that is not being treated adequately by ceftriaxone 2g IV daily x 1 dose (06/07/2025, 8:43am). Hence, I have opted to D/C ceftriaxone 2g IV daily on 06/08/2025, and in its place, I have started the patient on zosyn 4.5g IV q12 (day #1/5 on 06/08/2025, 8:50am). I will check vitals, chest exam, WBC w/diff, lactic acid, procalcitonin, blood culture #1 (06/07/2025, 10:13am), and blood culture #2 (06/07/2025, 10:51am) in the 06/09/2025 am. Of final note, I have not started patient on vancomycin as patient tested negative for MRSA nares PCR (06/05/2025, 5:20pm). Plan Code status, FULL CODE @ home. ACLS as required. renal function is improving. Possible discharge in next 24-48 h Admission and Anticipated Discharge Date Admission Date: June 05, 2025 Subjective Patient reports no new symptoms. Feeling better than she has. SHe denies any abd. pain, nausea, chest pain, diarrhea. Physical Exam Physical Exam: \\ HEENT: Normocephalic; atraumatic. EOMI. PERRL. Lungs: Clear to auscultation and percussion. N Heart: RRR, S1S2 Abd: Soft, non-tender, non-distended. Ext: No clubbing, cyanosis, or edema. 2+ pedal pulses bilaterally. Skin: No decubitus ulcer, exanthem, or enanthem. Neuro: Alert and oriented in regards to person, place, time, or situation. No myoclonus, tremors, or tics. Results & Data Results & Data Vital Signs (Past 12 Hours) Vital Signs Temp Pulse Resp BP Pulse Ox 06/10/25 19:50 36.7 C 74 18 144/76 H 95 06/10/25 15:49 36.3 C L 76 20 132/75 94 06/10/25 14:06 37.2 C 81 19 95 06/10/25 13:12 37.1 C 74 23 96 06/10/25 13:00 145/73 H 06/10/25 12:57 37.1 C 83 28 H 93 06/10/25 12:09 37.2 C 71 22 95 PG Care Time/CCT Total # of Minutes Spent Total Time Spent with Patient: Total time spent is greater than 50% in coordination of care (as documented) at patient's floor/unit and/or counseling patient: Coding Level of Care Code 63109 SUB INP/OBS CARE 3/50MIN Diagnoses Acute ST elevation myocardial infarction (STEMI) of inferior wall I21.19 Cardiogenic shock R57.0 Acute tubular necrosis N17.0 Acute hepatic failure K72.00 Acute hyponatremia E87.1 Hypocalcemia E83.51 Hypomagnesemia E83.42 Acute hypokalemia E87.6 Symptomatic bradycardia R00.1 Infection B99.9
[2025-06-11 05:57] LABS: Hematocrit (blood only) 26.2 % (37.0-47.0); Hemoglobin 8.6 g/dl (12.0-16.0); Mean Corpuscular Hemoglobin 28.1 pg (25.0-34.0); Mean Corpuscular Volume 85.6 fL (80.0-100.0); Platelet Count 137 K/uL (130-400); RDW Standard Deviation 52.8 fL (36.4-46.3); Red Blood Count 3.06 M/uL (4.20-5.40); White Blood Count 15.80 K/ul (4.8-10.8)
[2025-06-11 06:15] LABS: Anion Gap 4.0 (3-11); Blood Urea Nitrogen 33.0 mg/dl (6-23); Calcium 7.7 mg/dl (8.6-10.3); Carbon Dioxide 27.0 mmol/L (21-32); Chloride 111.0 mmol/L (98-107); Creatinine Clr Calc Pharmacy 17.8 ml/min; Glucose 98.0 mg/dl (70-99(Fasting)); Potassium 3.7 mmol/L (3.5-5.1); Sodium 142.0 mmol/L (136-145)
[2025-06-11 06:22] LABS: Albumin Globulin Ratio 1.2 (0.9-2); Alkaline Phosphatase 404.0 U/L (34-104); Bilirubin,Total 1.9 mg/dl (0.2-1.0); Globulin 2.3 gm/dl (2.5-4.0); Total Protein 5.1 gm/dl (6.0-8.3)
[2025-06-11 06:34] LABS: Alanine Aminotransferase 2178.0 U/L (7-52)
--- NOTE | 2025-06-11 11:05 | Gastroenterology Progress Note ---
Date of Service June 11, 2025 Assessment & Plan (1) Elevated liver enzymes: Plan: - would continue to follow LFTs. we suspect that these will peak soon and start to improve. - can await pending hep panel and ASMA testing results. Admission and Anticipated Discharge Date Admission Date: June 05, 2025 Supervising Physician Co-Signing Physician Notes I personally saw and examined the patient. I have reviewed the chart and agree with the documentation provided by the DAYCARE MANAGER including discussion about the assess ment, treatment and plan. Briefly, I think she has shock liver with ischemic hepatitis from cardiogenic shock and acute ST elevation VA. I am hoping that her LFTs peaked today and will see a precipitous drop tomorrow most of her serologies are pending but are negative to date. She is clinically improving Subjective Patient is feeling well. no current GI complaints. 06/11/25 t bili 1.9, d bili 0.8, AST 4369, ALT 2178, alk 404. 06/10/25 T bili 1.7, D bili 0.6, AST 3489, ALT 1401, Alk 341. 06/10/25 Liver US - No gallstones or biliary ductal dilatation. Small amount of sludge within the gallbladder. No evidence for acute cholecystitis. 06/07/25 CT shown normal liver. Hep Bs Antigen negative. hep C negative. rest of acute hep panel is pending. Review of Systems Review of Systems: All systems reviewed & are unremarkable except as noted in HPI & below Physical Exam Constitutional: WD/WN, vitals as above Respiratory: normal respiratory effort, lungs clear to auscultation Cardiovascular: Rate/Rhythm: regular rate and regular rhythm Gastrointestinal (Abdomen): normal bowel sounds, soft, nontender, no hepatosplenomegaly Psychiatric: Orientation: alert and oriented x 3 Affect: euthymic affect Results & Data Results & Data Vital Signs (Past 12 Hours) Vital Signs Temp Pulse Pulse Resp BP BP Pulse Ox 06/11/25 07:52 97.7 F 72 17 149/76 H 93 06/11/25 03:02 97.5 F L 74 18 127/70 95 06/11/25 00:00 71 06/10/25 23:41 98.1 F 80 18 143/76 H 91 O2 Del Method 06/11/25 07:52 06/11/25 03:02 06/11/25 00:00 06/10/25 23:41 Room Air PG Care Time/CCT Total # of Minutes Spent Total Time Spent with Patient: Total time spent is greater than 50% in coordination of care (as documented) at patient's floor/unit and/or counseling patient: Coding Level of Care Code 00765 SUB INP/OBS CARE 11/28MIN Diagnoses Elevated liver enzymes R74.8
[2025-06-11 14:41] LABS: Hepatitis A Antibody IgM NON-REACTIVE (NON-REACTIVE); Hepatitis B Core Antibody IgM NON-REACTIVE (NON-REACTIVE)
--- NOTE | 2025-06-11 17:37 | Cardiology Progress Note ---
Date of Service June 11, 2025 Assessment & Plan (1) Syncope and collapse: Plan: Likely due to transient AV block in the setting of an RCA infarct. Currently conducting well without evidence of AV block. No indication for permanent pacemaker. (2) ST elevation (STEMI) myocardial infarction: Plan: Recurrent inferior ST elevation [place] of the RCA. Successful PCI. 2 drug-eluting stents placed in the RCA. Overall LV function and. Adequate on her initial echocardiogram. However, still requiring significant pressor support. 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 Hemodynamics and pulmonary status have been stable. (3) CAD (coronary artery disease): Plan: Severe multivessel coronary disease. Prior two-vessel CABG with HANKS to LAD and SVG to diagonal/ramus. (4) Hyperlipidemia: Plan: Patient is high risk. High intensity statin therapy with rosuvastatin and Zetia. (5) Hypertension: Plan: Blood pressure much improved. In fact, slightly elevated recently. (6) Cardiogenic shock: Plan: Resolved. Plan Blood pressure remains stable if not elevated. Heart rate also good. AV block initially seen likely related to her transient ischemia involving the right coronary. Given her renal dysfunction she is not a great candidate for some standard post TX therapies such as SHER inhibition, but I think we can start low- dose beta-philip and monitor the response. Clinically she is improving without any evidence of recurrent ischemia or pulmonary vascular congestion. Still an element of peripheral edema which seems to be resolving. She will continue dual antiplatelet therapy and antilipid therapy. I will be away from the hospital for the next 2 days. If there are additional cardiac issues or acute problems please contact the on-call [facility] electrical electronics engineer. Admission and Anticipated Discharge Date Admission Date: June 05, 2025 Subjective This morning patient clinically feeling well. She denied any additional episodes of chest discomfort or dizziness. She was ambulatory briefly around her room with assistance. She denied dizziness or lightheadedness. No breathing difficulty. Review of Systems Review of Systems: Per HPI Physical Exam Physical Exam: Alert. Oriented to person and place. Answer questions appropriately. HEENT: Sclerae are anicteric. Lungs: Normal breath sounds. No expiratory wheezing. No rales. Cardiac: The rhythm was regular. S1 and S2 were normal. There are no murmurs on examination. Extremities: Patient has bilateral radial pulses that are equal in intensity. There is no evidence cyanosis or clubbing. Some ecchymoses. Some swelling of the hands and mild edema of the lower extremities. Skin: There are no rashes noted on examination today. Results & Data Vital Signs (Past 12 Hours) Vital Signs Temp Pulse Resp BP Pulse Ox 06/11/25 15:54 36.5 C 70 18 143/70 H 95 06/11/25 11:47 36.4 C L 72 19 138/62 95 06/11/25 07:52 36.5 C 72 17 149/76 H 93 Laboratory Results Abnormal Lab Results 06/10/25 06/10/25 06/11/25 07:51 20:15 05:28 WBC 15.80 H RBC 3.06 L Hgb 8.6 L Hct 26.2 L MCV 85.6 MCH 28.1 MCHC 32.8 RDW Std Deviation 52.8 H RDW Coeff of Randell 16.8 H Plt Count 137 MPV 10.3 Absolute Nucleated RBC 0.20 H Nucleated RBC % (auto) 1.3 Sodium 142 Potassium 3.7 Chloride 111 H Carbon Dioxide 27 Anion Gap 4 BUN 33 H Creatinine 2.21 H Est Cr Clr Drug Dosing 17.8 eGFR 21.32 BUN/Creatinine Ratio 14.9 Glucose 98 POC Glucose 122 H Calcium 7.7 L Total Bilirubin 1.9 H Direct Bilirubin 0.8 H AST 4369 H ALT 2178 H Alkaline Phosphatase 404 H C-Reactive Protein 12.32 H Total Protein 5.1 L Albumin 2.8 L Globulin 2.3 L Albumin/Globulin Ratio 1.2 Procalcitonin Hepatitis A IgM Ab NON-REACTIVE Hep B Core IgM Ab NON-REACTIVE 06/11/25 06/11/25 06/11/25 07:28 07:43 11:23 WBC RBC Hgb Hct MCV MCH MCHC RDW Std Deviation RDW Coeff of Randell Plt Count MPV Absolute Nucleated RBC Nucleated RBC % (auto) Sodium Potassium Chloride Carbon Dioxide Anion Gap BUN Creatinine Est Cr Clr Drug Dosing eGFR BUN/Creatinine Ratio Glucose POC Glucose 103 H 130 H Calcium Total Bilirubin Direct Bilirubin AST ALT Alkaline Phosphatase C-Reactive Protein Total Protein Albumin Globulin Albumin/Globulin Ratio Procalcitonin 4.99 H Hepatitis A IgM Ab Hep B Core IgM Ab 06/11/25 16:15 WBC RBC Hgb Hct MCV MCH MCHC RDW Std Deviation RDW Coeff of Randell Plt Count MPV Absolute Nucleated RBC Nucleated RBC % (auto) Sodium Potassium Chloride Carbon Dioxide Anion Gap BUN Creatinine Est Cr Clr Drug Dosing eGFR BUN/Creatinine Ratio Glucose POC Glucose 97 Calcium Total Bilirubin Direct Bilirubin AST ALT Alkaline Phosphatase C-Reactive Protein Total Protein Albumin Globulin Albumin/Globulin Ratio Procalcitonin Hepatitis A IgM Ab Hep B Core IgM Ab PG Care Time/CCT Total # of Minutes Spent Total Time Spent with Patient: Total time spent is greater than 50% in coordination of care (as documented) at patient's floor/unit and/or counseling patient: Coding Level of Care Code 42039 SUB INP/OBS CARE 2/35MIN Diagnoses Syncope and collapse R55 ST elevation myocardial infarction involving right coronary artery I21.11 Involved coronary artery: right coronary artery Coronary artery disease involving [place] coronary artery of [place] heart with angina pectoris I25.119 Coronary Disease-Associated Artery/Lesion type: [place] artery [place] vs. transplanted heart: [place] heart Associated angina: with unspecified form of angina Hyperlipidemia E78.5 Hypertension I10 Cardiogenic shock R57.0 (2) ST elevation (STEMI) myocardial infarction Involved coronary artery: right coronary artery Qualified Code(s): I21.11 - ST elevation (STEMI) myocardial infarction involving right coronary artery (3) CAD (coronary artery disease) Coronary Disease-Associated Artery/Lesion type: [place] artery [place] vs. transplanted heart: [place] heart Associated angina: with unspecified form of angina Qualified Code(s): I25.119 - Atherosclerotic heart disease of [place] coronary artery with unspecified angina pectoris
--- NOTE | 2025-06-11 23:17 | Hospitalist Progress Note ---
Date of Service June 11, 2025 Assessment & Plan (1) Acute ST elevation myocardial infarction (STEMI) of inferior wall: Plan: To address #1, patient underwent emergent cardiac catheterization (06/05/2025, 1:04pm, [facility] Interventional CARDS Dr. Amari Valles) with successful deployment of "2 overlapping drug-eluting stents in the mid and distal RCA covering the previous stent which seemed to harbor thrombus after the angioplasty portion of the procedure." Patient subsequently was loaded with plavix 600mg PO x 1 dose (06/05/2025, 2:54pm) and will start plavix 75mg PO daily (06/06/2025, 9:00am) and continue with her home-scheduled ASA 81mg PO daily (06/06/2025, 9:00am); patient will then continue with both plavix 75mg PO daily and ASA 81mg PO daily for the rest of her life. Patient will also continue with her home-scheduled, high intensity dose rosuvastatin 40mg PO daily and ezetimibe 10mg PO daily. Patient was also started on integrilin 20mg in 6.8 mL IV x 1 dose (first bolus administered on 06/05/2025, 3:38pm), followed by integrilin 20mg in 6.8 mL IV x 1 dose (second bolus administered on 06/05/2025, 3:39pm), followed by integrilin infusion @ 2.06 ug/kg/min (06/05/2025, 6:06pm) for 18 hours, followed by its discontinuation on 06/06/2025, 9:00am. Of final note, patient is being held OFF her home-scheduled metoprolol succinate 12.5mg PO qhs given potential for this medication to cause further bradycardia and/or hypotension. Patient is also not being started on either SHER inhibitor and/or ARB given the potential for either medication to cause further hypotension and/or acute renal injury/failure. cf., admission creatinine 1.19 mg/dL, GFR 44.8 mL/min (06/05/2025, 12:27pm). cf., TTE (06/05/2025, 3:54pm): 1. LV EF 60-65%. Regional wall motion abnormalities including mild hypokinesis of inferior wall from base to mid ventricle. 2. RV ventricle mildly dilated with RV systolic function moderately reduced. 3. LA size normal. 4. MV anatomy normal. 5. Very small posterior pericardial effusion. (as per CARDS Dr. Bran Field). Patient continues to receive plavix 75mg PO daily, ASA 81mg PO daily, rosuvastatin 40mg PO daily, and ezetimibe 10mg PO daily. Now off vasopressors downgraded from the unit. (2) Cardiogenic shock: Plan: To address #2, patient was started on dual pressor support utilizing norepinephrine 4mg IV x 1 dose (06/05/2025, 2:50pm), followed by norepinephrine infusion @ 0.2ug/kg/min (06/05/2025, 4:08pm) and dopamine infusion @ 7.5 ug/kg/min (06/05/2025, 3:30pm), as well as 1 liter of 0.9% NS @ 75 mL/hr (06/05/2025, 4:26pm), all to maintain MAP > 65 mm Hg, and to "Gradually wean these down. Since we were relatively quick in getting reperfusion I am hopeful that she will be able to maintain blood pressure without vasopressors by tomorrow." (as per [facility] Interventional CARDS Dr. Amari Valles) on 06/05/2025. In addition, patient was also loaded with anti-arrhythmic agent amiodarone 300mg IV x 1 dose (06/05/2025, 3:37pm), followed by amiodarone 150mg IV x 1 dose @ 600 mL/hr (06/05/2025, 4:09pm), followed by amiodarone infusion @ 1mg/min (06/05/2025, 4:27pm), to prophylax against potential ventricular arrhythmias that may arise post-cardiac catheterization in this patient with recurrent acute inferior wall STEMI and cardiogenic shock. Now off vasopressors (3) Acute tubular necrosis: Plan: Patient's renal function appears to be improving today () Etiology of acute renal injury is attributed to acute tubular necrosis, which in turn, is due to acute cardiogenic shock, which in turn, is due to acute inferior wall STEMI. renal function slightly worsened.. (4) Acute hepatic failure: Plan: Patient's transaminase levels initially increased, as shown below: cf., AST 27, ALT 27, ALK PHOS 36, TBili 1.3, albumin 4.0 (06/05/2025, 12:27pm). cf., AST 167, ALT 135, ALK PHOS 31, TBili 0.8, albumin 2.8 (06/06/2025, 5:11am). cf., AST 65, ALT 80, ALK PHOS 40, TBili 1.0, albumin 2.7 (06/07/2025, 4:35am). cf., AST 41, ALT 56, ALK PHOS 39, TBili 1.0, albumin 2.5 (06/08/2025, 3:37am). Patient's liver's synthetic function remains intact: cf., INR 1.0 (06/05/2025, 12:27pm). cf., INR 1.0 (06/06/2025, 6:22am). cf., INR 1.3 (06/07/2025, 2:23pm). Now off vasopressors, LFTs appear worse on 06/11. They jumped signifitcantly. Concern for shock liver. ordered hepatitis panel. consult gastro: appreciate input. (5) Acute hyponatremia: Plan: Patient's sodium level has declined: cf., Na 140 mmol/L (06/05/2025, 12:27pm). cf., Na 132 mmol/L (06/06/2025, 5:11am). cf., Na 130 mmol/L (06/07/2025, 4:35am). cf., Na 133 mmol/L (06/07/2025, 9:48am). cf., Na 133 mmol/L (06/08/2025, 3:37am). Etiology of acute hyponatremia is probably due to a combination of (a) acute dehydration in the NPO state due to mechanical intubation/ventilation on Assist Control with TV 400 mL, RR 19 breaths/minute, PEEP 5 cm H2O, and FIO2 = 0.3 (06/06/2025, 10:25am); and/or (b) SIADH in the setting of acute RV systolic CHF, which in turn, is due to acute cardiogenic shock, which in turn, is due to ac alejandra inferior wall STEMI. Hence, patient has already received 1 liter of 0.9% NS @ 75 mL/hr (start date/time, 06/05/2025, 4:26pm) and continues to receive 1 liter of 0.9% NS @ 75 mL/hr (start date/time, 06/06/2025, 4:42am) to mitigate further declines in Na levels over the next 24-48 hours, hopefully. Stay tuned. (6) Hypocalcemia: Plan: Patient's calcium level remains low, as shown below: cf., Ca 9.1, albumin 4.0, Ca corrected 9.1 (06/05/2025, 12:27pm). cf., Ca 6.8, albumin 2.8, Ca corrected 7.8 (06/06/2025, 5:11am). cf., Ca 7.1, albumin 2.7, Ca corrected 8.1 (06/07/2025, 4:35am). cf., Ca 7.2, albumin 2.5, Ca corrected 8.4 (06/08/2025, 3:37am). Etiology of acute hypocalcemia is probably due to acute dehydration in the NPO state due to mechanical intubation/ventilation. Hence, patient received calcium gluconate 1g IV x 3 doses (06/06/2025, 6:00am, 6:35am, and 6:49am). Hence, patient received calcium gluconate 1g IV x 1 dose (06/07/2025, 10:31am). Hence, patient received calcium gluconate 1g IV x 2 doses (06/08/2025, 9:42am, 12:06pm) to mitigate further declines in Ca levels over the next 24-48 hours, hopefully. Stay tuned. (7) Hypomagnesemia: Plan: Patient's magnesium level has returned to normal, as shown below: cf., Mg 2.2 (06/05/2025, 6:05am). cf., Mg 2.1 (06/06/2025, 12:27pm). cf., Mg 1.5 (06/07/2025, 4:35am). cf., Mg 2.3 (, 3:37am). Etiology of acute hypomagnesemia was probably due to acute dehydration in the NPO state due to mechanical intubation/ventilation. Hence, patient received magnesium sulfate 1g IV x 3 doses (06/07/2025, 8:24am, 10:06am, 12:10pm, 2:16pm). Subsequently, acute hypomagnesemia RESOLVED, as shown above. (8) Acute hypokalemia: Plan: Patient's potassium level has returned to normal, as shown below: cf., K 4.5 (06/05/2025, 12:27pm). cf., K 3.4 (06/06/2025, 5:11am). cf., K 3.8 (06/07/2025, 4:35am). cf., K 3.5 (06/07/2025, 9:48am). cf., K 3.7 (06/08/2025, 3:37am). Etiology of acute hypokalemia was probably due to acute dehydration in the NPO state due to mechanical intubation/ventilation. Hence, patient received potassium chloride 40meq PO x 1 dose (06/06/2025, 9:07am). Hence, patient received potassium chloride 20meq IV x 1 dose (06/07/2025, 8:44am). Subsequently, acute hypokalemia RESOLVED, as shown above, but K level remains less than 4.0 mmol/L on 06/08/2025. Hence, patient received potassium chloride 20meq PO x 1 dose (06/08/2025, 6:00am) to increase K level to more than 4.0 mmol/L, over the next 24-48 hours, hopefully. Stay tuned. (9) Symptomatic bradycardia: Plan: To address #8, patient was continued on lunchroom monitor in ICU bed #E109-1 on admission date 06/05/2025. Continue transvenous PPM in situ as needed, as recommended by [facility] Interventional CARDS Dr. Amari Valles, on 06/05/2025, and who also recommends "that as we titrate down her vasopressor support we keep the transvenous pacemaker in place as she may become profoundly bradycardic without dopamine and norepinephrine. Then, we could start to titrate down the pacer to see if she can sustain a sinus rhythm long-term. She has had more than 1 myocardial infarction in the RCA distribution and I am concerned that she will eventually require permanent pacemaker particularly for us to optimize her medical therapy." 06/06/2025: Patient is not bradycardic with HR 80 bpm (06/06/2025, 10:25am). Continue lunchroom monitor and transvenous PPM in situ as needed. 06/07/2025: Patient is not bradycardic with HR 80 bpm (06/07/2025, 1:53pm). Continue lunchroom monitor and transvenous PPM in situ as needed. (10) Infection: Plan: Etiology of infection remains unclear in this afebrile patient with negative urine culture (06/05/2025, 7:30pm). In addition, portable CXR #1 (06/05/2025, 1:11pm) and portable CXR #2 (06/07/2025, 6:00am) reveal no infiltrate/consolidation to suggest acute bacterial pneumonia. In addition, blood culture #1 (06/07/2025, 10:13am) and blood culture #2 (06/07/2025, 10:51am) reveal no bacteremia. While WBC has declined to normal, as shown below, patient's peripheral blood smear reveals the presence of toxic vacuoles (06/07/2025, 4:38am) and now toxic vacuoles with Dohle bodies (06/08/2025, 3:37am): WBC 5.74, N46 L39 M11 E3 B1, (06/05/2025, 12:27pm). WBC 20.37, N83 L13 M 2 E1, (0 06/05/2025, 4:25pm). WBC 11.97, N72 L15 M13, (06/06/2025, 5:11am). WBC 11.81, N78 L12 M10, (06/06/2025, 2:51pm). WBC 5.90, N77 L13 M 9, toxic vacuoles (06/07/2025, 4:38am). (06/07/2025, 9:48am). (06/07/2025, 10:51am). WBC 5.90, N89 L 3 M 6 , toxic vacuoles, Dohle bodies (06/08/2025, 3:37am). While lactic acid levels remain normal, procalcitonin levels are increasing, as shown below: Lactic acid #1 1.5 mmol/L (06/06/2025, 10:57am). Lactic acid #2 1.8 mmol/L (06/08/2025, 8:25am). Procalcitonin #1 6.61 ng/mL (06/07/2025, 10:13am). Procalcitonin #2 14.30 ng/mL (06/08/2025, 8:25am). Hence, I surmise that this patient has an incipient infection that is not being treated adequately by ceftriaxone 2g IV daily x 1 dose (06/07/2025, 8:43am). Hence, I have opted to D/C ceftriaxone 2g IV daily on 06/08/2025, and in its place, I have started the patient on zosyn 4.5g IV q12 (day #1/5 on 06/08/2025, 8:50am). I will check vitals, chest exam, WBC w/diff, lactic acid, procalcitonin, blood culture #1 (06/07/2025, 10:13am), and blood culture #2 (06/07/2025, 10:51am) in the 06/09/2025 am. Of final note, I have not started patient on vancomycin as patient tested negative for MRSA nares PCR (06/05/2025, 5:20pm). Plan Code status, FULL CODE @ home. ACLS as required. renal function is improving. Possible discharge in next 24-48 h Admission and Anticipated Discharge Date Admission Date: June 05, 2025 Subjective 84 yo female reports no new symptoms. Physical Exam Physical Exam: \\ HEENT: Normocephalic; atraumatic. EOMI. PERRL. Smiling in the room. Lungs: Clear to auscultation and percussion. N Heart: RRR, S1S2 Abd: Soft, non-tender, non-distended. Ext: No clubbing, cyanosis, or edema. 2+ pedal pulses bilaterally. Skin: No decubitus ulcer, exanthem, or enanthem. Neuro: Alert and oriented in regards to person, place, time, or situation. No myoclonus, tremors, or tics. Results & Data Results & Data Vital Signs (Past 12 Hours) Vital Signs Temp Pulse Resp BP Pulse Ox 06/11/25 20:16 36.7 C 67 17 137/68 94 06/11/25 15:54 36.5 C 70 18 143/70 H 95 06/11/25 11:47 36.4 C L 72 19 138/62 95 PG Care Time/CCT Total # of Minutes Spent Total Time Spent with Patient: Total time spent is greater than 50% in coordination of care (as documented) at patient's floor/unit and/or counseling patient: Coding Level of Care Code 21317 SUB INP/OBS CARE 3/50MIN Diagnoses Acute ST elevation myocardial infarction (STEMI) of inferior wall I21.19 Cardiogenic shock R57.0 Acute tubular necrosis N17.0 Acute hepatic failure K72.00 Acute hyponatremia E87.1 Hypocalcemia E83.51 Hypomagnesemia E83.42 Acute hypokalemia E87.6 Symptomatic bradycardia R00.1 Infection B99.9
[2025-06-12] MEDS: HYDROCORTISONE SOD 50 MG in SYRINGE 0 ML IV SCH (08:39)
--- NOTE | 2025-06-12 08:53 | Gastroenterology Progress Note ---
Date of Service June 12, 2025 Assessment & Plan (1) Elevated liver enzymes: Plan: Liver enzymes still rising which could be them just reaching their peak before returning to normal as we see with shock liver. Would follow daily INR until her LFT's resolve. She is showing no signs of encephalopathy at this time. Will follow with you Admission and Anticipated Discharge Date Admission Date: June 05, 2025 Subjective Says she feels tired but otherwise no complaints. LFT's still rising. No INR done today Physical Exam Physical Exam: Pleasant but appears exhausted Constitutional: WD/WN, vitals as above Results & Data Vital Signs (Past 12 Hours) Vital Signs Temp Pulse Pulse Resp BP BP Pulse Ox 06/12/25 07:49 36.7 C 74 18 139/71 95 06/12/25 04:24 36.4 C L 74 17 142/77 H 90 06/12/25 00:05 36.7 C 74 17 152/74 H 91 06/12/25 00:00 67 O2 Del Method 06/12/25 07:49 Room Air 06/12/25 04:24 06/12/25 00:05 06/12/25 00:00
[2025-06-12 09:25] LABS: Hematocrit (blood only) 28.3 % (37.0-47.0); Hemoglobin 9.5 g/dl (12.0-16.0); Mean Corpuscular Hemoglobin 28.5 pg (25.0-34.0); Mean Corpuscular Volume 85.0 fL (80.0-100.0); Platelet Count 165 K/uL (130-400); RDW Standard Deviation 51.8 fL (36.4-46.3); Red Blood Count 3.33 M/uL (4.20-5.40); White Blood Count 17.15 K/ul (4.8-10.8)
[2025-06-12 09:45] LABS: Anion Gap 7.0 (3-11); Blood Urea Nitrogen 35.0 mg/dl (6-23); Calcium 7.8 mg/dl (8.6-10.3); Carbon Dioxide 26.0 mmol/L (21-32); Chloride 108.0 mmol/L (98-107); Creatinine Clr Calc Pharmacy 20.2 ml/min; Glucose 102.0 mg/dl (70-99(Fasting)); Potassium 3.4 mmol/L (3.5-5.1); Sodium 141.0 mmol/L (136-145)
[2025-06-12 10:28] LABS: Alanine Aminotransferase 1793.0 U/L (7-52); Albumin Globulin Ratio 1.3 (0.9-2); Alkaline Phosphatase 422.0 U/L (34-104); Bilirubin,Total 2.4 mg/dl (0.2-1.0); Globulin 2.3 gm/dl (2.5-4.0); Total Protein 5.2 gm/dl (6.0-8.3)
[2025-06-12 10:36] LABS: ALC (manual) 1.37 K/uL (1.2-3.4); ANC (manual) 12.52 K/uL (1.4-6.5); Ovalocytes 1+; Polychromasia 1+; Toxic Granulation Occasional; Toxic Vacuolation Occasional
[2025-06-12 13:28] LABS: INR 1.2 (0.9-1.1); Prothrombin Time 12.7 Seconds (9.0-12.0)
--- NOTE | 2025-06-12 17:58 | Hospitalist Progress Note ---
Date of Service June 12, 2025 Assessment & Plan (1) Acute ST elevation myocardial infarction (STEMI) of inferior wall: Plan: To address #1, patient underwent emergent cardiac catheterization (06/05/2025, 1:04pm, [facility] Interventional CARDS Dr. Amari Valles) with successful deployment of "2 overlapping drug-eluting stents in the mid and distal RCA covering the previous stent which seemed to harbor thrombus after the angioplasty portion of the procedure." Patient subsequently was loaded with plavix 600mg PO x 1 dose (06/05/2025, 2:54pm) and will start plavix 75mg PO daily (06/06/2025, 9:00am) and continue with her home-scheduled ASA 81mg PO daily (06/06/2025, 9:00am); patient will then continue with both plavix 75mg PO daily and ASA 81mg PO daily for the rest of her life. Patient will also continue with her home-scheduled, high intensity dose rosuvastatin 40mg PO daily and ezetimibe 10mg PO daily. Patient was also started on integrilin 20mg in 6.8 mL IV x 1 dose (first bolus administered on 06/05/2025, 3:38pm), followed by integrilin 20mg in 6.8 mL IV x 1 dose (second bolus administered on 06/05/2025, 3:39pm), followed by integrilin infusion @ 2.06 ug/kg/min (06/05/2025, 6:06pm) for 18 hours, followed by its discontinuation on 06/06/2025, 9:00am. Of final note, patient is being held OFF her home-scheduled metoprolol succinate 12.5mg PO qhs given potential for this medication to cause further bradycardia and/or hypotension. Patient is also not being started on either SHER inhibitor and/or ARB given the potential for either medication to cause further hypotension and/or acute renal injury/failure. cf., admission creatinine 1.19 mg/dL, GFR 44.8 mL/min (06/05/2025, 12:27pm). cf., TTE (06/05/2025, 3:54pm): 1. LV EF 60-65%. Regional wall motion abnormalities including mild hypokinesis of inferior wall from base to mid ventricle. 2. RV ventricle mildly dilated with RV systolic function moderately reduced. 3. LA size normal. 4. MV anatomy normal. 5. Very small posterior pericardial effusion. (as per CARDS Dr. Bran Field). Patient continues to receive plavix 75mg PO daily, ASA 81mg PO daily, rosuvastatin 40mg PO daily, and ezetimibe 10mg PO daily. Now off vasopressors downgraded from the unit. (2) Cardiogenic shock: Plan: To address #2, patient was started on dual pressor support utilizing norepinephrine 4mg IV x 1 dose (06/05/2025, 2:50pm), followed by norepinephrine infusion @ 0.2ug/kg/min (06/05/2025, 4:08pm) and dopamine infusion @ 7.5 ug/kg/min (06/05/2025, 3:30pm), as well as 1 liter of 0.9% NS @ 75 mL/hr (06/05/2025, 4:26pm), all to maintain MAP > 65 mm Hg, and to "Gradually wean these down. Since we were relatively quick in getting reperfusion I am hopeful that she will be able to maintain blood pressure without vasopressors by tomorrow." (as per [facility] Interventional CARDS Dr. Amari Valles) on 06/05/2025. In addition, patient was also loaded with anti-arrhythmic agent amiodarone 300mg IV x 1 dose (06/05/2025, 3:37pm), followed by amiodarone 150mg IV x 1 dose @ 600 mL/hr (06/05/2025, 4:09pm), followed by amiodarone infusion @ 1mg/min (06/05/2025, 4:27pm), to prophylax against potential ventricular arrhythmias that may arise post-cardiac catheterization in this patient with recurrent acute inferior wall STEMI and cardiogenic shock. Now off vasopressors (3) Acute tubular necrosis: Plan: Patient's renal function appears to be improving today () Etiology of acute renal injury is attributed to acute tubular necrosis, which in turn, is due to acute cardiogenic shock, which in turn, is due to acute inferior wall STEMI. renal function slightly worsened.. (4) Acute hepatic failure: Plan: Patient's transaminase levels initially increased, as shown below: cf., AST 27, ALT 27, ALK PHOS 36, TBili 1.3, albumin 4.0 (06/05/2025, 12:27pm). cf., AST 167, ALT 135, ALK PHOS 31, TBili 0.8, albumin 2.8 (06/06/2025, 5:11am). cf., AST 65, ALT 80, ALK PHOS 40, TBili 1.0, albumin 2.7 (06/07/2025, 4:35am). cf., AST 41, ALT 56, ALK PHOS 39, TBili 1.0, albumin 2.5 (06/08/2025, 3:37am). Patient's liver's synthetic function remains intact: cf., INR 1.0 (06/05/2025, 12:27pm). cf., INR 1.0 (06/06/2025, 6:22am). cf., INR 1.3 (06/07/2025, 2:23pm). Now off vasopressors, LFTs appear worse on 06/11. They jumped signifitcantly. Concern for shock liver. ordered hepatitis panel. consult gastro: appreciate input. LFTs are finally downtrending. (5) Acute hyponatremia: Plan: Patient's sodium level has declined: cf., Na 140 mmol/L (06/05/2025, 12:27pm). cf., Na 132 mmol/L (06/06/2025, 5:11am). cf., Na 130 mmol/L (06/07/2025, 4:35am). cf., Na 133 mmol/L (06/07/2025, 9:48am). cf., Na 133 mmol/L (06/08/2025, 3:37am). Etiology of acute hyponatremia is probably due to a combination of (a) acute dehydration in the NPO state due to mechanical intubation/ventilation on Assist Control with TV 400 mL, RR 19 breaths/minute, PEEP 5 cm H2O, and FIO2 = 0.3 (06/06/2025, 10:25am); and/or (b) SIADH in the setting of acute RV systolic CHF, which in turn, is due to acute cardiogenic shock, which in turn, is due to acute inferior wall STEMI. Hence, patient has already received 1 liter of 0.9% NS @ 75 mL/hr (start date/time, 06/05/2025, 4:26pm) and continues to receive 1 liter of 0.9% NS @ 75 mL/hr (start date/time, 06/06/2025, 4:42am) to mitigate further declines in Na levels over the next 24-48 hours, hopefully. Stay tuned. (6) Hypocalcemia: Plan: Patient's calcium level remains low, as shown below: cf., Ca 9.1, albumin 4.0, Ca corrected 9.1 (06/05/2025, 12:27pm). cf., Ca 6.8, albumin 2.8, Ca corrected 7.8 (06/06/2025, 5:11am). cf., Ca 7.1, albumin 2.7, Ca corrected 8.1 (06/07/2025, 4:35am). cf., Ca 7.2, albumin 2.5, Ca corrected 8.4 (06/08/2025, 3:37am). Etiology of acute hypocalcemia is probably due to acute dehydration in the NPO state due to mechanical intubation/ventilation. Hence, patient received calcium gluconate 1g IV x 3 doses (06/06/2025, 6:00am, 6:35am, and 6:49am). Hence, patient received calcium gluconate 1g IV x 1 dose (06/07/2025, 10:31am). Hence, patient received calcium gluconate 1g IV x 2 doses (06/08/2025, 9:42am, 12:06pm) to mitigate further declines in Ca levels over the next 24-48 hours, hopefully. Stay tuned. (7) Hypomagnesemia: Plan: Patient's magnesium level has returned to normal, as shown below: cf., Mg 2.2 (06/05/2025, 6:05am). cf., Mg 2.1 (06/06/2025, 12:27pm). cf., Mg 1.5 (06/07/2025, 4:35am). cf., Mg 2.3 (, 3:37am). Etiology of acute hypomagnesemia was probably due to acute dehydration in the NPO state due to mechanical intubation/ventilation. Hence, patient received magnesium sulfate 1g IV x 3 doses (06/07/2025, 8:24am, 10:06am, 12:10pm, 2:16pm). Subsequently, acute hypomagnesemia RESOLVED, as shown above. (8) Acute hypokalemia: Plan: Patient's potassium level has returned to normal, as shown below: cf., K 4.5 (06/05/2025, 12:27pm). cf., K 3.4 (06/06/2025, 5:11am). cf., K 3.8 (06/07/2025, 4:35am). cf., K 3.5 (06/07/2025, 9:48am). cf., K 3.7 (06/08/2025, 3:37am). Etiology of acute hypokalemia was probably due to acute dehydration in the NPO state due to mechanical intubation/ventilation. Hence, patient received potassium chloride 40meq PO x 1 dose (06/06/2025, 9:07am). Hence, patient received potassium chloride 20meq IV x 1 dose (06/07/2025, 8:44am). Subsequently, acute hypokalemia RESOLVED, as shown above, but K level remains less than 4.0 mmol/L on 06/08/2025. Hence, patient received potassium chloride 20meq PO x 1 dose (06/08/2025, 6:00am) to increase K level to more than 4.0 mmol/L, over the next 24-48 hours, hopefully. Stay tuned. (9) Symptomatic bradycardia: Plan: To address #8, patient was continued on school bus monitor in ICU bed #E109-1 on admission date 06/05/2025. Continue transvenous PPM in situ as needed, as recommended by [facility] Interventional CARDS Dr. Amari Valles, on 06/05/2025, and who also recommends "that as we titrate down her vasopressor support we keep the transvenous pacemaker in place as she may become profoundly bradycardic without dopamine and norepinephrine. Then, we could start to titrate down the pacer to see if she can sustain a sinus rhythm long-term. She has had more than 1 myocardial infarction in the RCA distribution and I am concerned that she will eventually require permanent pacemaker particularly for us to optimize her medical therapy." 06/06/2025: Patient is not bradycardic with HR 80 bpm (06/06/2025, 10:25am). Continue school bus monitor and transvenous PPM in situ as needed. 06/07/2025: Patient is not bradycardic with HR 80 bpm (06/07/2025, 1:53pm). Continue school bus monitor and transvenous PPM in situ as needed. (10) Infection: Plan: Etiology of infection remains unclear in this afebrile patient with negative urine culture (06/05/2025, 7:30pm). In addition, portable CXR #1 (06/05/2025, 1:11pm) and portable CXR #2 (06/07/2025, 6:00am) reveal no infiltrate/consolidation to suggest acute bacterial pneumonia. In addition, blood culture #1 (06/07/2025, 10:13am) and blood culture #2 (06/07/2025, 10:51am) reveal no bacteremia. While WBC has declined to normal, as shown below, patient's peripheral blood smear reveals the presence of toxic vacuoles (06/07/2025, 4:38am) and now toxic vacuoles with Dohle bodies (06/08/2025, 3:37am): WBC 5.74, N46 L39 M11 E3 B1, (06/05/2025, 12:27pm). WBC 20.37, N83 L13 M 2 E1, (06/05/2025, 4:25pm). WBC 11.97, N72 L15 M13, (06/06/2025, 5:11am). WBC 11.81, N78 L12 M10, (06/06/2025, 2:51pm). WBC 5.90, N77 L13 M 9, toxic vacuoles (06/07/2025, 4:38am). (06/07/2025, 9:48am). (06/07/2025, 10:51am). WBC 5.90, N89 L 3 M 6 , toxic vacuoles, Dohle bodies (06/08/2025, 3:37am). While lactic acid levels remain normal, procalcitonin levels are increasing, as shown below: Lactic acid #1 1.5 mmol/L (06/06/2025, 10:57am). Lactic acid #2 1.8 mmol/L (06/08/2025, 8:25am). Procalcitonin #1 6.61 ng/mL (06/07/2025, 10:13am). Procalcitonin #2 14.30 ng/mL (06/08/2025, 8:25am). Hence, I surmise that this patient has an incipient infection that is not being treated adequately by ceftriaxone 2g IV daily x 1 dose (06/07/2025, 8:43am). Hence, I have opted to D/C ceftriaxone 2g IV daily on 06/08/2025, and in its place, I have started the patient on zosyn 4.5g IV q12 (day #1/5 on 06/08/2025, 8:50am). I will check vitals, chest exam, WBC w/diff, lactic acid, procalcitonin, blood culture #1 (06/07/2025, 10:13am), and blood culture #2 (06/07/2025, 10:51am) in the 06/09/2025 am. Of final note, I have not started patient on vancomycin as patient tested negative for MRSA nares PCR (06/05/2025, 5:20pm). Plan Code status, FULL CODE @ home. ACLS as required. renal function is improving. montioring LFTs Admission and Anticipated Discharge Date Admission Date: June 05, 2025 Subjective 84 yo female reports no new symptoms. Nurse and report that patient has not been confused. Physical Exam Physical Exam: HEENT: Normocephalic; atraumatic. EOMI. PERRL. Smiling in the room. Lungs: Clear to auscultation and percussion. N Heart: RRR, S1S2 Abd: Soft, non-tender, non-distended. Ext: No clubbing, cyanosis, or edema. 2+ pedal pulses bilaterally. Skin: No decubitus ulcer, exanthem, or enanthem. Neuro: Alert and oriented in regards to person, place, time, or situation. No myoclonus, tremors, or tics. Results & Data Results & Data Vital Signs (Past 12 Hours) Vital Signs Temp Pulse Pulse Resp BP Pulse Ox O2 Del Method 06/12/25 15:57 36.7 C 72 18 156/74 H 95 Room Air 06/12/25 15:44 63 06/12/25 11:30 36.5 C 60 18 148/69 H 94 Room Air 06/12/25 08:00 65 06/12/25 07:49 36.7 C 74 18 139/71 95 Room Air PG Care Time/CCT Total # of Minutes Spent Total Time Spent with Patient: Total time spent is greater than 50% in coordination of care (as documented) at patient's floor/unit and/or counseling patient: Coding Level of Care Code 91817 SUB INP/OBS CARE 3/50MIN Diagnoses Acute ST elevation myocardial infarction (STEMI) of inferior wall I21.19 Cardiogenic shock R57.0 Acute tubular necrosis N17.0 Acute hepatic failure K72.00 Acute hyponatremia E87.1 Hypocalcemia E83.51 Hypomagnesemia E83.42 Acute hypokalemia E87.6 Symptomatic bradycardia R00.1 Infection B99.9
[2025-06-13 08:24] LABS: Hematocrit (blood only) 29.4 % (37.0-47.0); Hemoglobin 9.9 g/dl (12.0-16.0); Mean Corpuscular Hemoglobin 28.3 pg (25.0-34.0); Mean Corpuscular Volume 84.0 fL (80.0-100.0); Platelet Count 173 K/uL (130-400); RDW Standard Deviation 50.4 fL (36.4-46.3); Red Blood Count 3.50 M/uL (4.20-5.40); White Blood Count 16.06 K/ul (4.8-10.8)
[2025-06-13 08:54] LABS: Anion Gap 6.0 (3-11); Blood Urea Nitrogen 36.0 mg/dl (6-23); Calcium 8.0 mg/dl (8.6-10.3); Carbon Dioxide 28.0 mmol/L (21-32); Chloride 108.0 mmol/L (98-107); Creatinine Clr Calc Pharmacy 23.1 ml/min; Glucose 83.0 mg/dl (70-99(Fasting)); Potassium 3.0 mmol/L (3.5-5.1); Sodium 142.0 mmol/L (136-145)
[2025-06-13 09:01] LABS: Partial Thromboplastin Time 33 Seconds (21-31)
[2025-06-13 10:14] LABS: Alanine Aminotransferase 1304.0 U/L (7-52); Alkaline Phosphatase 402.0 U/L (34-104); Bilirubin,Total 1.8 mg/dl (0.2-1.0); Total Protein 5.2 gm/dl (6.0-8.3)
[2025-06-13] MEDS: POTASSIUM CHLORIDE CRTAB 20 MEQ TABCR PO STA (10:17)
[2025-06-13] MEDS: POTASSIUM CHLORIDE / WTR 10 MEQ/100 ML PLCT IV SCH (10:17)
--- NOTE | 2025-06-13 10:34 | Communication Note ---
Date of Service: June 13, 2025 LFT's are improving This is consistent with shock liver Continue to follow LFT's
--- NOTE | 2025-06-13 16:23 | Hospitalist Progress Note ---
Date of Service June 13, 2025 Assessment & Plan (1) Acute ST elevation myocardial infarction (STEMI) of inferior wall: Plan: To address #1, patient underwent emergent cardiac catheterization (06/05/2025, 1:04pm, [facility] Interventional CARDS Dr. Amari Valles) with successful deployment of "2 overlapping drug-eluting stents in the mid and distal RCA covering the previous stent which seemed to harbor thrombus after the angioplasty portion of the procedure." Patient subsequently was loaded with plavix 600mg PO x 1 dose (06/05/2025, 2:54pm) and will start plavix 75mg PO daily (06/06/2025, 9:00am) and continue with her home-scheduled ASA 81mg PO daily (06/06/2025, 9:00am); patient will then continue with both plavix 75mg PO daily and ASA 81mg PO daily for the rest of her life. Patient will also continue with her home-scheduled, high intensity dose rosuvastatin 40mg PO daily and ezetimibe 10mg PO daily. Patient was also started on integrilin 20mg in 6.8 mL IV x 1 dose (first bolus administered on 06/05/2025, 3:38pm), followed by integrilin 20mg in 6.8 mL IV x 1 dose (second bolus administered on 06/05/2025, 3:39pm), followed by integrilin infusion @ 2.06 ug/kg/min (06/05/2025, 6:06pm) for 18 hours, followed by its discontinuation on 06/06/2025, 9:00am. Of final note, patient is being held OFF her home-scheduled metoprolol succinate 12.5mg PO qhs given potential for this medication to cause further bradycardia and/or hypotension. Patient is also not being started on either SHER inhibitor and/or ARB given the potential for either medication to cause further hypotension and/or acute renal injury/failure. cf., admission creatinine 1.19 mg/dL, GFR 44.8 mL/min (06/05/2025, 12:27pm). cf., TTE (06/05/2025, 3:54pm): 1. LV EF 60-65%. Regional wall motion abnormalities including mild hypokinesis of inferior wall from base to mid ventricle. 2. RV ventricle mildly dilated with RV systolic function moderately reduced. 3. LA size normal. 4. MV anatomy normal. 5. Very small posterior pericardial effusion. (as per CARDS Dr. Bran Field). Patient continues to receive plavix 75mg PO daily, ASA 81mg PO daily, rosuvastatin 40mg PO daily, and ezetimibe 10mg PO daily. Now off vasopressors downgraded from the unit. (2) Cardiogenic shock: Plan: To address #2, patient was started on dual pressor support utilizing norepinephrine 4mg IV x 1 dose (06/05/2025, 2:50pm), followed by norepinephrine infusion @ 0.2ug/kg/min (06/05/2025, 4:08pm) and dopamine infusion @ 7. 5ug/kg/min (06/05/2025, 3:30pm), as well as 1 liter of 0.9% NS @ 75 mL/hr (06/05/2025, 4:26pm), all to maintain MAP > 65 mm Hg, and to "Gradually wean these down. Since we were relatively quick in getting reperfusion I am hopeful that she will be able to maintain blood pressure without vasopressors by tomorrow." (as per [facility] Interventional CARDS Dr. Amari Valles) on 06/05/2025. In addition, patient was also loaded with anti-arrhythmic agent amiodarone 300mg IV x 1 dose (06/05/2025, 3:37pm), followed by amiodarone 150mg IV x 1 dose @ 600 mL/hr (06/05/2025, 4:09pm), followed by amiodarone infusion @ 1mg/min (06/05/2025, 4:27pm), to prophylax against potential ventricular arrhythmias that may arise post-cardiac catheterization in this patient with recurrent acute inferior wall STEMI and cardiogenic shock. Now off vasopressors (3) Acute tubular necrosis: Plan: Patient's renal function appears to be improving today () Etiology of acute renal injury is attributed to acute tubular necrosis, which in turn, is due to acute cardiogenic shock, which in turn, is due to acute inferior wall STEMI. renal function slightly worsened.. (4) Acute hepatic failure: Plan: Patient's transaminase levels initially increased, as shown below: cf., AST 27, ALT 27, ALK PHOS 36, TBili 1.3, albumin 4.0 (06/05/2025, 12:27pm). cf., AST 167, ALT 135, ALK PHOS 31, TBili 0.8, albumin 2.8 (06/06/2025, 5:11am). cf., AST 65, ALT 80, ALK PHOS 40, TBili 1.0, albumin 2.7 (06/07/2025, 4:35am). cf., AST 41, ALT 56, ALK PHOS 39, TBili 1.0, albumin 2.5 (06/08/2025, 3:37am). Patient's liver's synthetic function remains intact: cf., INR 1.0 (06/05/2025, 12:27pm). cf., INR 1.0 (06/06/2025, 6:22am). cf., INR 1.3 (06/07/2025, 2:23pm). Now off vasopressors, LFTs appear worse on 06/11. They jumped signifitcantly. Concern for shock liver. ordered hepatitis panel. consult gastro: appreciate input. LFTs are finally downtrending and are close to normal (5) Acute hyponatremia: Plan: Patient's sodium level has declined: cf., Na 140 mmol/L (06/05/2025, 12:27pm). cf., Na 132 mmol/L (06/06/2025, 5:11am). cf., Na 130 mmol/L (06/07/2025, 4:35am). cf., Na 133 mmol/L (06/07/2025, 9:48am). cf., Na 133 mmol/L (06/08/2025, 3:37am). Etiology of acute hyponatremia is probably due to a combination of (a) acute dehydration in the NPO state due to mechanical intubation/ventilation on Assist Control with TV 400 mL, RR 19 breaths/minute, PEEP 5 cm H2O, and FIO2 = 0.3 (06/06/2025, 10:25am); and/or (b) SIADH in the setting of acute RV systolic CHF, which in turn, is due to acute cardiogenic shock, which in turn, is due to acute inferior wall STEMI. Hence, patient has already received 1 liter of 0.9% NS @ 75 mL/hr (start date/time, 06/05/2025, 4:26pm) and continues to receive 1 liter of 0.9% NS @ 75 mL/hr (start date/time, 06/06/2025, 4:42am) to mitigate further declines in Na levels over the next 24-48 hours, hopefully. Stay tuned. (6) Hypocalcemia: Plan: Patient's calcium level remains low, as shown below: cf., Ca 9.1, albumin 4.0, Ca corrected 9.1 (06/05/2025, 12:27pm). cf., Ca 6.8, albumin 2.8, Ca corrected 7.8 (06/06/2025, 5:11am). cf., Ca 7.1, albumin 2.7, Ca corrected 8.1 (06/07/2025, 4:35am). cf., Ca 7.2, albumin 2.5, Ca corrected 8.4 (06/08/2025, 3:37am). Etiology of acute hypocalcemia is probably due to acute dehydration in the NPO state due to mechanical intubation/ventilation. Hence, patient received calcium gluconate 1g IV x 3 doses (06/06/2025, 6:00am, 6:35am, and 6:49am). Hence, patient received calcium gluconate 1g IV x 1 dose (06/07/2025, 10:31am). Hence, patient received calcium gluconate 1g IV x 2 doses (06/08/2025, 9:42am, 12:06pm) to mitigate further declines in Ca levels over the next 24-48 hours, hopefully. Stay tuned. (7) Hypomagnesemia: Plan: Patient's magnesium level has returned to normal, as shown below: cf., Mg 2.2 (06/05/2025, 6:05am). cf., Mg 2.1 (06/06/2025, 12:27pm). cf., Mg 1.5 (06/07/2025, 4:35am). cf., Mg 2.3 (, 3:37am). Etiology of acute hypomagnesemia was probably due to acute dehydration in the NPO state due to mechanical intubation/ventilation. Hence, patient received magnesium sulfate 1g IV x 3 doses (06/07/2025, 8:24am, 10:06am, 12:10pm, 2:16pm). Subsequently, acute hypomagnesemia RESOLVED, as shown above. (8) Acute hypokalemia: Plan: Patient's potassium level has returned to normal, as shown below: cf., K 4.5 (06/05/2025, 12:27pm). cf., K 3.4 (06/06/2025, 5:11am). cf., K 3.8 (06/07/2025, 4:35am). cf., K 3.5 (06/07/2025, 9:48am). cf., K 3.7 (06/08/2025, 3:37am). Etiology of acute hypokalemia was probably due to acute dehydration in the NPO state due to mechanical intubation/ventilation. Hence, patient received potassium chloride 40meq PO x 1 dose (06/06/2025, 9:07am). Hence, patient received potassium chloride 20meq IV x 1 dose (06/07/2025, 8:44am). Subsequently, acute hypokalemia RESOLVED, as shown above, but K level remains less than 4.0 mmol/L on 06/08/2025. Hence, patient received potassium chloride 20meq PO x 1 dose (06/08/2025, 6:00am) to increase K level to more than 4.0 mmol/L, over the next 24-48 hours, hopefully. Stay tuned. (9) Symptomatic bradycardia: Plan: To address #8, patient was continued on teletypesetter monitor in ICU bed #E109-1 on admission date 06/05/2025. Continue transvenous PPM in situ as needed, as recommended by [facility] Interventional CARDS Dr. Amari Valles, on 06/05/2025, and who also recommends "that as we titrate down her vasopressor support we keep the transvenous pacemaker in place as she may become profoundly bradycardic without dopamine and norepinephrine. Then, we could start to titrate down the pacer to see if she can sustain a sinus rhythm long-term. She has had more than 1 myocardial infarction in the RCA distribution and I am concerned that she will eventually require permanent pacemaker particularly for us to optimize her medical therapy." 06/06/2025: Patient is not bradycardic with HR 80 bpm (06/06/2025, 10:25am). Continue teletypesetter monitor and transvenous PPM in situ as needed. 06/07/2025: Patient is not bradycardic with HR 80 bpm (06/07/2025, 1:53pm). Continue teletypesetter monitor and transvenous PPM in situ as needed. (10) Infection: Plan: Etiology of infection remains unclear in this afebrile patient with negative urine culture (06/05/2025, 7:30pm). In addition, portable CXR #1 (06/05/2025, 1:11pm) and portable CXR #2 (06/07/2025, 6:00am) reveal no infiltrate/consolidation to suggest acute bacterial pneumonia. In addition, blood culture #1 (06/07/2025, 10:13am) and blood culture #2 (06/07/2025, 10:51am) reveal no bacteremia. While WBC has declined to normal, as shown below, patient's peripheral blood smear reveals the presence of toxic vacuoles (06/07/2025, 4:38am) and now toxic vacuoles with Dohle bodies (06/08/2025, 3:37am): WBC 5.74, N46 L39 M11 E3 B1, (06/05/2025, 12:27pm). WBC 20.37, N83 L13 M 2 E1, (06/05/2025, 4:25pm). WBC 11.97, N72 L15 M13, (06/06/2025, 5:11am). WBC 11.81, N78 L12 M10, (06/06/2025, 2:51pm). WBC 5.90, N77 L13 M 9, toxic vacuoles (06/07/2025, 4:38am). (06/07/2025, 9:48am). (06/07/2025, 10:51am). WBC 5.90, N89 L 3 M 6 , toxic vacuoles, Dohle bodies (06/08/2025, 3:37am). While lactic acid levels remain normal, procalcitonin levels are increasing, as shown below: Lactic acid #1 1.5 mmol/L (06/06/2025, 10:57am). Lactic acid #2 1.8 mmol/L (06/08/2025, 8:25am). Procalcitonin #1 6.61 ng/mL (06/07/2025, 10:13am). Procalcitonin #2 14.30 ng/mL (06/08/2025, 8:25am). Hence, I surmise that this patient has an incipient infection that is not being treated adequately by ceftriaxone 2g IV daily x 1 dose (06/07/2025, 8:43am). Hence, I have opted to D/C ceftriaxone 2g IV daily on 06/08/2025, and in its place, I have started the patient on zosyn 4.5g IV q12 (day #/ on 06/08/2025, 8:50am). I will check vitals, chest exam, WBC w/diff, lactic acid, procalcitonin, blood culture #1 (06/07/2025, 10:13am), and blood culture #2 (06/07/2025, 10:51am) in the 06/09/2025 am. Of final note, I have not started patient on vancomycin as patient tested negative for MRSA nares PCR (06/05/2025, 5:20pm). Plan Code status, FULL CODE @ home. ACLS as required. renal function is improving. montioring LFTs Admission and Anticipated Discharge Date Admission Date: June 05, 2025 Subjective Patient reports no new symptoms. Physical Exam Physical Exam: HEENT: Normocephalic; atraumatic. EOMI. PERRL. Smiling in the room. Lungs: Clear to auscultation and percussion. N Heart: RRR, S1S2 Abd: Soft, non-tender, non-distended. Ext: No clubbing, cyanosis, or edema. 2+ pedal pulses bilaterally. Skin: No decubitus ulcer, exanthem, or enanthem. Neuro: Alert and oriented in regards to person, place, time, or situation. No myoclonus, tremors, or tics. Results & Data Results & Data Vital Signs (Past 12 Hours) Vital Signs Temp Pulse Pulse Resp BP Pulse Ox O2 Del Method 06/13/25 15:30 36.7 C 62 18 157/93 H 95 Room Air 06/13/25 11:28 36.6 C 61 18 150/79 H 94 Room Air 06/13/25 08:00 Room Air 06/13/25 08:00 48 L 06/13/25 08:00 48 L 06/13/25 07:34 36.7 C 54 L 18 164/67 H 91 Room Air PG Care Time/CCT Total # of Minutes Spent Total Time Spent with Patient: Total time spent is greater than 50% in coordination of care (as documented) at patient's floor/unit and/or counseling patient: Coding Level of Care Code 22155 SUB INP/OBS CARE 3/50MIN Diagnoses Acute ST elevation myocardial infarction (STEMI) of inferior wall I21.19 Cardiogenic shock R57.0 Acute tubular necrosis N17.0 Acute hepatic failure K72.00 Acute hyponatremia E87.1 Hypocalcemia E83.51 Hypomagnesemia E83.42 Acute hypokalemia E87.6 Symptomatic bradycardia R00.1 Infection B99.9
[2025-06-14 06:54] LABS: Hematocrit (blood only) 28.2 % (37.0-47.0); Hemoglobin 9.3 g/dl (12.0-16.0); Mean Corpuscular Hemoglobin 27.9 pg (25.0-34.0); Mean Corpuscular Volume 84.7 fL (80.0-100.0); Platelet Count 167 K/uL (130-400); RDW Standard Deviation 51.2 fL (36.4-46.3); Red Blood Count 3.33 M/uL (4.20-5.40); White Blood Count 12.96 K/ul (4.8-10.8)
[2025-06-14 07:20] LABS: Partial Thromboplastin Time 40 Seconds (21-31)
[2025-06-14 07:23] LABS: Anion Gap 6.0 (3-11); Blood Urea Nitrogen 33.0 mg/dl (6-23); Calcium 7.8 mg/dl (8.6-10.3); Carbon Dioxide 28.0 mmol/L (21-32); Chloride 107.0 mmol/L (98-107); Creatinine Clr Calc Pharmacy 27.3 ml/min; Glucose 76.0 mg/dl (70-99(Fasting)); Potassium 3.4 mmol/L (3.5-5.1); Sodium 141.0 mmol/L (136-145)
[2025-06-14 07:46] LABS: Alanine Aminotransferase 797.0 U/L (7-52); Albumin Globulin Ratio 1.3 (0.9-2); Alkaline Phosphatase 335.0 U/L (34-104); Bilirubin,Total 1.4 mg/dl (0.2-1.0); Globulin 2.1 gm/dl (2.5-4.0); Total Protein 4.8 gm/dl (6.0-8.3)
--- NOTE | 2025-06-14 12:25 | Gastroenterology Progress Note ---
Date of Service June 14, 2025 Assessment & Plan (1) Elevated liver enzymes: Plan: 84yowf with h/o STEMI complicated by ZORAN 2/2 ATN and elevated LFTs suspected to be 2/2 liver shock is seen today on daily GI rounds for elevated LFTs. (1) Liver shock - LFTs continue to improve as expected. - No clinical concerns today. - Continue to avoid hepatotoxins. - Recommend f/u with PCP in outpatient to document resolution of labs. - Further recommendations to come with Supervising GI provider on medical rounds. Please see co-signature comments. Admission and Anticipated Discharge Date Admission Date: June 05, 2025 Supervising Physician Co-Signing Physician Notes Cardiogenic shock with secondary ATN and ischemic hepatitis. Cardiac situation stabilized. Liver enzymes normal. Liver imaging on ultrasound and CT without definite pathology. Management is continued management the cardiac situation. Expect enzymes to fully recover and normalize with time no further GI workup required Subjective 84yowf with h/o STEMI complicated by ZORAN 2/2 ATN and elevated LFTs suspected to be 2/2 liver shock is seen today on daily GI rounds for elevated LFTs. She has no concerns today. She denies any fevers, chills, abdominal pain, N/V/D, jaundice, melena or hematochezia. She denies any family history Liver disease. No personal history of liver disease or alcohol use. AST 703 => 241 ALT 1304 => 797 Alk phos 402 => 335 T-Bili 1.8 => 1.4 Liver US FINDINGS: Hepatic echogenicity is within normal limits. There is no biliary ductal dilatation. No gallstones are identified. A small amount of sludge within the gallbladder is present. There is no gallbladder wall thickening. Mild gallbladder distention is unchanged. The pancreas is unremarkable by sonography although the pancreatic tail is partially obscured. There is no right hydronephrosis. IMPRESSION: 1. No gallstones or biliary ductal dilatation. 2. Small amount of sludge within the gallbladder. No evidence for acute cholecystitis. Abd/Pelvic CT IMPRESSION: 1. There is no evidence of intraperitoneal or retroperitoneal hemorrhage as clinically queried. 2. Cardiomegaly and cardiac pacemaker. 3. Small pleural effusions with dependent consolidation. 4. There is retained cortical contrast seen in both kidneys, as well as residual contrast within the collecting systems. This suggests acute renal injury. Correlate with clinical and laboratory findings. 5. Colonic diverticulosis without CT evidence of acute diverticulitis. 6. Small volume pelvic ascites. Review of Systems Review of Systems: See HPI Physical Exam Physical Exam: Constitutional: NAD. Alert. Answering questions appropriately. Respiratory: Breathing is even, non-labored. Lungs waldron are clear to auscultation anteriorly. Cardiovascular: Regular Rate and Rhythm, no murmurs, rubs or gallops appreciated. Gastrointestinal (Abdomen): Normoactive bowel sounds x4, soft, non-distended, non-tender. Musculoskeletal: Lying in bed comfortably. No peripheral edema. Results & Data Results & Data Vital Signs (Past 12 Hours) Vital Signs Temp Pulse Pulse Resp BP Pulse Ox O2 Del Method 06/14/25 11:55 98.2 F 67 18 160/68 H 96 Room Air 06/14/25 10:17 Room Air 06/14/25 08:00 54 L 06/14/25 07:24 98.4 F 83 17 163/75 H 94 Room Air 06/14/25 03:33 97.9 F 62 19 163/71 H 95 Room Air PG Care Time/CCT Total # of Minutes Spent Total Time Spent with Patient: Total time spent is greater than 50% in coordination of care (as documented) at patient's floor/unit and/or counseling patient: Coding Level of Care Code 45009 SUB INP/OBS CARE 2/35MIN Diagnoses Elevated liver enzymes R74.8
--- NOTE | 2025-06-14 23:28 | Hospitalist Progress Note ---
Date of Service June 14, 2025 Assessment & Plan (1) Acute ST elevation myocardial infarction (STEMI) of inferior wall: Plan: To address #1, patient underwent emergent cardiac catheterization (06/05/2025, 1:04pm, [facility] Interventional CARDS Dr. Amari Valles) with successful deployment of "2 overlapping drug-eluting stents in the mid and distal RCA covering the previous stent which seemed to harbor thrombus after the angioplasty portion of the procedure." Patient subsequently was loaded with plavix 600mg PO x 1 dose (06/05/2025, 2:54pm) and will start plavix 75mg PO daily (06/06/2025, 9:00am) and continue with her home-scheduled ASA 81mg PO daily (06/06/2025, 9:00am); patient will then continue with both plavix 75mg PO daily and ASA 81mg PO daily for the rest of her life. Patient will also continue with her home-scheduled, high intensity dose rosuvastatin 40mg PO daily and ezetimibe 10mg PO daily. Patient was also started on integrilin 20mg in 6.8 mL IV x 1 dose (first bolus administered on 06/05/2025, 3:38pm), followed by integrilin 20mg in 6.8 mL IV x 1 dose (second bolus administered on 06/05/2025, 3:39pm), followed by integrilin infusion @ 2.06 ug/kg/min (06/05/2025, 6:06pm) for 18 hours, followed by its discontinuation on 06/06/2025, 9:00am. Of final note, patient is being held OFF her home-scheduled metoprolol succinate 12.5mg PO qhs given potential for this medication to cause further bradycardia and/or hypotension. Patient is also not being started on either SHER inhibitor and/or ARB given the potential for either medication to cause further hypotension and/or acute renal injury/failure. cf., admission creatinine 1.19 mg/dL, GFR 44.8 mL/min (06/05/2025, 12:27pm). cf., TTE (06/05/2025, 3:54pm): 1. LV EF 60-65%. Regional wall motion abnormalities including mild hypokinesis of inferior wall from base to mid ventricle. 2. RV ventricle mildly dilated with RV systolic function moderately reduced. 3. LA size normal. 4. MV anatomy normal. 5. Very small posterior pericardial effusion. (as per CARDS Dr. Bran Field). Patient continues to receive plavix 75mg PO daily, ASA 81mg PO daily, rosuvastatin 40mg PO daily, and ezetimibe 10mg PO daily. Now off vasopressors downgraded from the unit. Antcipate discharge in AM if patient is feeling well. (2) Cardiogenic shock: Plan: To address #2, patient was started on dual pressor support utilizing norepinephrine 4mg IV x 1 dose (06/05/2025, 2:50pm), followed by norepinephrine infusion @ 0.2ug/kg/min (06/05/2025, 4:08pm) and dopamine infusion @ 7.5ug/kg/min (06/05/2025, 3:30pm), as well as 1 liter of 0.9% NS @ 75 mL/hr (06/05/2025, 4:26pm), all to maintain MAP > 65 mm Hg, and to "Gradually wean these down. Since we were relatively quick in getting reperfusion I am hopeful that she will be able to maintain blood pressure without vasopressors by tomorrow." (as per [facility] Interventional CARDS Dr. Amari Valles) on 06/05/2025. In addition, patient was also loaded with anti-arrhythmic agent amiodarone 300mg IV x 1 dose (06/05/2025, 3:37pm), followed by amiodarone 150mg IV x 1 dose @ 600 mL/hr (06/05/2025, 4:09pm), followed by amiodarone infusion @ 1mg/min (06/05/2025, 4:27pm), to prophylax against potential ventricular arrhythmias that may arise post-cardiac catheterization in this patient with recurrent acute inferior wall STEMI and cardiogenic shock. Now off vasopressors (3) Acute tubular necrosis: Plan: Patient's renal function appears to be improving today () Etiology of acute renal injury is attributed to acute tubular necrosis, which in turn, is due to acute cardiogenic shock, which in turn, is due to acute inferior wall STEMI. renal function slightly worsened.. (4) Acute hepatic failure: Plan: Patient's transaminase levels initially increased, as shown below: cf., AST 27, ALT 27, ALK PHOS 36, TBili 1.3, albumin 4.0 (06/05/2025, 12:27pm). cf., AST 167, ALT 135, ALK PHOS 31, TBili 0.8, albumin 2.8 (06/06/2025, 5:11am). cf., AST 65, ALT 80, ALK PHOS 40, TBili 1.0, albumin 2.7 (06/07/2025, 4:35am). cf., AST 41, ALT 56, ALK PHOS 39, TBili 1.0, albumin 2.5 (06/08/2025, 3:37am). Patient's liver's synthetic function remains intact: cf., INR 1.0 (06/05/2025, 12:27pm). cf., INR 1.0 (06/06/2025, 6:22am). cf., INR 1.3 (06/07/2025, 2:23pm). Now off vasopressors, LFTs appear worse on 06/11. They jumped signifitcantly. Concern for shock liver. ordered hepatitis panel. consult gastro: appreciate input. LFTs are finally downtrending and are close to normal (5) Acute hyponatremia: Plan: Patient's sodium level has declined: cf., Na 140 mmol/L (06/05/2025, 12:27pm). cf., Na 132 mmol/L (06/06/2025, 5:11am). cf., Na 130 mmol/L (06/07/2025, 4:35am). cf., Na 133 mmol/L (06/07/2025, 9:48am). cf., Na 133 mmol/L (06/08/2025, 3:37am). Etiology of acute hyponatremia is probably due to a combination of (a) acute dehydration in the NPO state due to mechanical intubation/ventilation on Assist Control with TV 400 mL, RR 19 breaths/minute, PEEP 5 cm H2O, and FIO2 = 0.3 (06/06/2025, 10:25am); and/or (b) SIADH in the setting of acute RV systolic CHF, which in turn, is due to acute cardiogenic shock, which in turn, is due to acute inferior wall STEMI. Hence, patient has already received 1 liter of 0.9% NS @ 75 mL/hr (start date/time, 06/05/2025, 4:26pm) and continues to receive 1 liter of 0.9% NS @ 75 mL/hr (start date/time, 06/06/2025, 4:42am) to mitigate further declines in Na levels over the next 24-48 hours, hopefully. Stay tuned. (6) Hypocalcemia: Plan: Patient's calcium level remains low, as shown below: cf., Ca 9.1, albumin 4.0, Ca corrected 9.1 (06/05/2025, 12:27pm). cf., Ca 6.8, albumin 2.8, Ca corrected 7.8 (06/06/2025, 5:11am). cf., Ca 7.1, albumin 2.7, Ca corrected 8.1 (06/07/2025, 4:35am). cf., Ca 7.2, albumin 2.5, Ca corrected 8.4 (06/08/2025, 3:37am). Etiology of acute hypocalcemia is probably due to acute dehydration in the NPO state due to mechanical intubation/ventilation. Hence, patient received calcium gluconate 1g IV x 3 doses (06/06/2025, 6:00am, 6:35am, and 6:49am). Hence, patient received calcium gluconate 1g IV x 1 dose (06/07/2025, 10:31am). Hence, patient received calcium gluconate 1g IV x 2 doses (06/08/2025, 9:42am, 12:06pm) to mitigate further declines in Ca levels over the next 24-48 hours, hopefully. Stay tuned. (7) Hypomagnesemia: Plan: Patient's magnesium level has returned to normal, as shown below: cf., Mg 2.2 (06/05/2025, 6:05am). cf., Mg 2.1 (06/06/2025, 12:27pm). cf., Mg 1.5 (06/07/2025, 4:35am). cf., Mg 2.3 (, 3:37am). Etiology of acute hypomagnesemia was probably due to acute dehydration in the NPO state due to mechanical intubation/ventilation. Hence, patient received magnesium sulfate 1g IV x 3 doses (06/07/2025, 8:24am, 10:06am, 12:10pm, 2:16pm). Subsequently, acute hypomagnesemia RESOLVED, as shown above. (8) Acute hypokalemia: Plan: Patient's potassium level has returned to normal, as shown below: cf., K 4.5 (06/05/2025, 12:27pm). cf., K 3.4 (06/06/2025, 5:11am). cf., K 3.8 (06/07/2025, 4:35am). cf., K 3.5 (06/07/2025, 9:48am). cf., K 3.7 (06/08/2025, 3:37am). Etiology of acute hypokalemia was probably due to acute dehydration in the NPO state due to mechanical intubation/ventilation. Hence, patient received potassium chloride 40meq PO x 1 dose (06/06/2025, 9:07am). Hence, patient received potassium chloride 20meq IV x 1 dose (06/07/2025, 8:44am). Subsequently, acute hypokalemia RESOLVED, as shown above, but K level remains less than 4.0 mmol/L on 06/08/2025. Hence, patient received potassium chloride 20meq PO x 1 dose (06/08/2025, 6:00am) to increase K level to more than 4.0 mmol/L, over the next 24-48 hours, hopefully. Stay tuned. (9) Symptomatic bradycardia: Plan: To address #8, patient was continued on playground monitor in ICU bed #E109-1 on admission date 06/05/2025. Continue transvenous PPM in situ as needed, as recommended by [facility] Interventional CARDS Dr. Amari Valles, on 06/05/2025, and who also recommends "that as we titrate down her vasopressor support we keep the transvenous pacemaker in place as she may become profoundly bradycardic without dopamine and norepinephrine. Then, we could start to titrate down the pacer to see if she can sustain a sinus rhythm long-term. She has had more than 1 myocardial infarction in the RCA distribution and I am concerned that she will eventually require permanent pacemaker particularly for us to optimize her medical therapy." Patient with moments of bradycardia, but has since been asymptomatic. (10) Infection: Plan: Etiology of infection remains unclear in this afebrile patient with negative urine culture (06/05/2025, 7:30pm). In addition, portable CXR #1 (06/05/2025, 1:11pm) and portable CXR #2 (06/07/2025, 6:00am) reveal no infiltrate/consolidation to suggest acute bacterial pneumonia. In addition, blood culture #1 (06/07/2025, 10:13am) and blood culture #2 (06/07/2025, 10:51am) reveal no bacteremia. While WBC has declined to normal, as shown below, patient's peripheral blood smear reveals the presence of toxic vacuoles (06/07/2025, 4:38am) and now toxic vacuoles with Dohle bodies (06/08/2025, 3:37am): WBC 5.74, N46 L39 M11 E3 B1, (06/05/2025, 12:27pm). WBC 20.37, N83 L13 M 2 E1, (06/05/2025, 4:25pm). WBC 11.97, N72 L15 M13, (06/06/2025, 5:11am). WBC 11.81, N78 L12 M10, (06/06/2025, 2:51pm). WBC 5.90, N77 L13 M 9, toxic vacuoles (06/07/2025, 4:38am). (06/07/2025, 9:48am). (06/07/2025, 10:51am). WBC 5.90, N89 L 3 M 6 , toxic vacuoles, Dohle bodies (06/08/2025, 3:37am). While lactic acid levels remain normal, procalcitonin levels are increasing, as shown below: Lactic acid #1 1.5 mmol/L (06/06/2025, 10:57am). Lactic acid #2 1.8 mmol/L (06/08/2025, 8:25am). Procalcitonin #1 6.61 ng/mL (06/07/2025, 10:13am). Procalcitonin #2 14.30 ng/mL (06/08/2025, 8:25am). Hence, I surmise that this patient has an incipient infection that is not being treated adequately by ceftriaxone 2g IV daily x 1 dose (06/07/2025, 8:43am). Hence, I have opted to D/C ceftriaxone 2g IV daily on 06/08/2025, and in its place, I have started the patient on zosyn 4.5g IV q12 (day #1/5 on 06/08/2025, 8:50am). I will check vitals, chest exam, WBC w/diff, lactic acid, procalcitonin, blood culture #1 (06/07/2025, 10:13am), and blood culture #2 (06/07/2025, 10:51am) in the 06/09/2025 am. Of final note, I have not started patient on vancomycin as patient tested negative for MRSA nares PCR (06/05/2025, 5:20pm). Plan Code status, FULL CODE @ home. ACLS as required. renal function is improving. montioring LFTs Admission and Anticipated Discharge Date Admission Date: June 05, 2025 Subjective Patient reports no new symptoms. Physical Exam Physical Exam: HEENT: Normocephalic; atraumatic. EOMI. PERRL. Smiling in the room. Lungs: Clear to auscultation and percussion. N Heart: RRR, S1S2 Abd: Soft, non-tender, non-distended. Ext: No clubbing, cyanosis, or edema. 2+ pedal pulses bilaterally. Skin: No decubitus ulcer, exanthem, or enanthem. Neuro: Alert and oriented in regards to person, place, time, or situation. No myoclonus, tremors, or tics. Results & Data Results & Data Vital Signs (Past 12 Hours) Vital Signs Temp Pulse Pulse Resp BP Pulse Ox O2 Del Method 06/14/25 22:52 60 06/14/25 22:47 36.6 C 67 18 150/89 H 95 Room Air 06/14/25 19:33 36.8 C 62 18 155/70 H 95 Room Air 06/14/25 15:58 59 L 06/14/25 15:27 36.9 C 63 18 156/73 H 96 Room Air 06/14/25 11:55 36.8 C 67 18 160/68 H 96 Room Air PG Care Time/CCT Total # of Minutes Spent Total Time Spent with Patient: Total time spent is greater than 50% in coordination of care (as documented) at patient's floor/unit and/or counseling patient: Coding Level of Care Code 33844 SUB INP/OBS CARE 3/50MIN Diagnoses Acute ST elevation myocardial infarction (STEMI) of inferior wall I21.19 Cardiogenic shock R57.0 Acute tubular necrosis N17.0 Acute hepatic failure K72.00 Acute hyponatremia E87.1 Hypocalcemia E83.51 Hypomagnesemia E83.42 Acute hypokalemia E87.6 Symptomatic bradycardia R00.1 Infection B99.9
[2025-06-15 08:30] LABS: Anion Gap 7.0 (3-11); Blood Urea Nitrogen 28.0 mg/dl (6-23); Calcium 7.9 mg/dl (8.6-10.3); Carbon Dioxide 28.0 mmol/L (21-32); Chloride 107.0 mmol/L (98-107); Creatinine Clr Calc Pharmacy 30.2 ml/min; Glucose 69.0 mg/dl (70-99(Fasting)); Potassium 3.0 mmol/L (3.5-5.1); Sodium 142.0 mmol/L (136-145)
[2025-06-15 08:38] LABS: Partial Thromboplastin Time 40 Seconds (21-31)
[2025-06-15 08:44] LABS: Albumin Globulin Ratio 1.4 (0.9-2); Alkaline Phosphatase 291.0 U/L (34-104); Bilirubin,Total 1.6 mg/dl (0.2-1.0); Globulin 2.1 gm/dl (2.5-4.0); Total Protein 5.0 gm/dl (6.0-8.3)
[2025-06-15 08:51] LABS: Alanine Aminotransferase 562.0 U/L (7-52)
--- NOTE | 2025-06-15 10:11 | Gastroenterology Progress Note ---
Date of Service June 15, 2025 Assessment & Plan (1) Elevated liver enzymes: Plan: 84yowf with h/o STEMI complicated by ZORAN 2/2 ATN and elevated LFTs suspected to be 2/2 liver shock is seen today on daily GI rounds for elevated LFTs. (1) Liver shock - LFTs continue to improve as expected. - No clinical concerns today. - Continue to avoid hepatotoxins. - Recommend f/u with PCP in outpatient to document resolution of labs. - Further recommendations to come with Supervising GI provider on medical rounds. Please see co-signature comments. Admission and Anticipated Discharge Date Admission Date: June 05, 2025 Supervising Physician Co-Signing Physician Notes Patient discharged prior to being seen. Agree with above. Liver test is normalized with time. Refer back to GI if remain persistently elevated Subjective 84yowf with h/o STEMI complicated by ZORAN 2/2 ATN and elevated LFTs suspected to be 2/2 liver shock is seen today on daily GI rounds for elevated LFTs. She has no concerns today. LFTs continue to trend downward as noted below. She denies any fevers, chills, abdominal pain, N/V/D, jaundice, melena or hematochezia. She denies any family history Liver disease. No personal history of liver disease or alcohol use. AST 703 => 241 => 110 ALT 1304 => 797 => 562 Alk phos 402 => 335 => 291 T-Bili 1.8 => 1.4 => 1.6 Liver US FINDINGS: Hepatic echogenicity is within normal limits. There is no biliary ductal dilatation. No gallstones are identified. A small amount of sludge within the gallbladder is present. There is no gallbladder wall thickening. Mild gallbladder distention is unchanged. The pancreas is unremarkable by sonography although the pancreatic tail is partially obscured. There is no right hydronephrosis. IMPRESSION: 1. No gallstones or biliary ductal dilatation. 2. Small amount of sludge within the gallbladder. No evidence for acute cholecystitis. Abd/Pelvic CT IMPRESSION: 1. There is no evidence of intraperitoneal or retroperitoneal hemorrhage as clinically queried. 2. Cardiomegaly and cardiac pacemaker. 3. Small pleural effusions with dependent consolidation. 4. There is retained cortical contrast seen in both kidneys, as well as residual contrast within the collecting systems. This suggests acute renal injury. Correlate with clinical and laboratory findings. 5. Colonic diverticulosis without CT evidence of acute diverticulitis. 6. Small volume pelvic ascites. Review of Systems Review of Systems: See HPI Physical Exam Physical Exam: Constitutional: NAD. Alert. Answering questions appropriately. Respiratory: Breathing is even, non-labored. Lungs waldron are clear to auscul tation anteriorly. Cardiovascular: Regular Rate and Rhythm, no murmurs, rubs or gallops appreciated. Gastrointestinal (Abdomen): Normoactive bowel sounds x4, soft, non-distended, non-tender. Musculoskeletal: Sitting in [place] comfortably. Results & Data Results & Data Vital Signs (Past 12 Hours) Vital Signs Temp Pulse Pulse Resp BP Pulse Ox O2 Del Method 06/15/25 08:00 51 L 06/15/25 07:58 97.7 F 61 23 165/78 H 93 Room Air 06/15/25 02:38 98.2 F 61 18 141/60 H 95 Room Air 06/14/25 22:52 60 06/14/25 22:47 97.9 F 67 18 150/89 H 95 Room Air PG Care Time/CCT Total # of Minutes Spent Total Time Spent with Patient: Total time spent is greater than 50% in coordination of care (as documented) at patient's floor/unit and/or counseling patient: Coding Level of Care Code 82896 SUB INP/OBS CARE 2/35MIN Diagnoses Elevated liver enzymes R74.8
[2025-06-15] MEDS: POTASSIUM CHLORIDE CRTAB 20 MEQ TABCR PO STA (10:35)
[2025-06-15] MEDS: POTASSIUM CHLORIDE / WTR 10 MEQ/100 ML PLCT IV SCH (10:37)
[2025-06-15 12:25] VITALS: TEMP 98.1
--- NOTE | 2025-06-15 14:04 | Discharge Summary ---
Discharge Summary Date of Service June 15, 2025 Principal Dx & Hospital Course #1 = Principal Diagnosis (1) Acute ST elevation myocardial infarction (STEMI) of inferior wall: To address #1, patient underwent emergent cardiac catheterization (06/05/2025, 1 :04pm, [facility] Interventional CARDS Dr. Amari Valles) with successful deployment of "2 overlapping drug-eluting stents in the mid and distal RCA covering the previous stent which seemed to harbor thrombus after the angioplasty portion of the procedure." Patient subsequently was loaded with plavix 600mg PO x 1 dose (06/05/2025, 2:54pm) and will start plavix 75mg PO daily (06/06/2025, 9:00am) and continue with her home-scheduled ASA 81mg PO daily (06/06/2025, 9:00am); patient will then continue with both plavix 75mg PO daily and ASA 81mg PO daily for the rest of her life. Patient will also continue with her home-scheduled, high intensity dose rosuvastatin 40mg PO daily and ezetimibe 10mg PO daily. Patient was also started on integrilin 20mg in 6.8 mL IV x 1 dose (first bolus administered on 06/05/2025, 3:38pm), followed by integrilin 20mg in 6.8 mL IV x 1 dose (second bolus administered on 06/05/2025, 3:39pm), followed by integrilin infusion @ 2.06 ug/kg/min (06/05/2025, 6:06pm) for 18 hours, followed by its discontinuation on 06/06/2025, 9:00am. Of final note, patient is being held OFF her home-scheduled metoprolol succinate 12.5mg PO qhs given potential for this medication to cause further bradycardia and/or hypotension. Patient is also not being started on either SHER inhibitor and/or ARB given the potential for either medication to cause further hypotension and/or acute renal injury/failure. cf., admission creatinine 1.19 mg/dL, GFR 44.8 mL/min (06/05/2025, 12:27pm). cf., TTE (06/05/2025, 3:54pm): 1. LV EF 60-65%. Regional wall motion abnormalities including mild hypokinesis of inferior wall from base to mid ventricle. 2. RV ventricle mildly dilated with RV systolic function moderately reduced. 3. LA size normal. 4. MV anatomy normal. 5. Very small posterior pericardial effusion. (as per CARDS Dr. Bran Field). Patient continued to receive plavix 75mg PO daily, ASA 81mg PO daily. However due to elvated LFT from liver shock: rosuvastatin 40mg PO daily, and ezetimibe 10mg PO daily on hold. Patient improved off pressors for days, now asymptomatic. Due to renal failure, will hold initiating either sher inhibitor or arb May consider starting at followup. Due to bradycardia, will hold beta philip. (2) Cardiogenic shock: To address #2, patient was started on dual pressor support utilizing norepinephrine 4mg IV x 1 dose (06/05/2025, 2:50pm), followed by norepinephrine infusion @ 0.2ug/kg/min (06/05/2025, 4:08pm) and dopamine infusion @ 7.5ug/kg/min (06/05/2025, 3:30pm), as well as 1 liter of 0.9% NS @ 75 mL/hr (06/05/2025, 4:26pm), all to maintain MAP > 65 mm Hg, and to "Gradually wean these down. Since we were relatively quick in getting reperfusion I am hopeful that she will be able to maintain blood pressure without vasopressors by tomorrow." (as per [facility] Interventional CARDS Dr. Amari Valles) on 06/05/2025. In addition, patient was also loaded with anti-arrhythmic agent amiodarone 300mg IV x 1 dose (06/05/2025, 3:37pm), followed by amiodarone 150mg IV x 1 dose @ 600 mL/hr (06/05/2025, 4:09pm), followed by amiodarone infusion @ 1mg/min (06/05/2025, 4:27pm), to prophylax against potential ventricular arrhythmias that may arise post-cardiac catheterization in this patient with recurrent acute inferior wall STEMI and cardiogenic shock. Now off vasopressors (3) Acute tubular necrosis: Patient's renal function appears to be improving today () Etiology of acute renal injury is attributed to acute tubular necrosis, which in turn, is due to acute cardiogenic shock, which in turn, is due to acute inferior wall STEMI. renal function improved to 1.3 (4) Acute hepatic failure: Patient's transaminase levels initially increased, as shown below: cf., AST 27, ALT 27, ALK PHOS 36, TBili 1.3, albumin 4.0 (06/05/2025, 12:27pm). cf., AST 167, ALT 135, ALK PHOS 31, TBili 0.8, albumin 2.8 (06/06/2025, 5:11am). cf., AST 65, ALT 80, ALK PHOS 40, TBili 1.0, albumin 2.7 (06/07/2025, 4:35am). cf., AST 41, ALT 56, ALK PHOS 39, TBili 1.0, albumin 2.5 (06/08/2025, 3:37am). Patient's liver's synthetic function remains intact: cf., INR 1.0 (06/05/2025, 12:27pm). cf., INR 1.0 (06/06/2025, 6:22am). cf., INR 1.3 (06/07/2025, 2:23pm). Now off vasopressors, LFTs appear worse on 06/11. They jumped signifitcantly. Likely acute shock liver. Thankfully AST and ALT improved. (5) Acute hyponatremia: Patient's sodium level has declined: cf., Na 140 mmol/L (06/05/2025, 12:27pm). cf., Na 132 mmol/L (06/06/2025, 5:11am). cf., Na 130 mmol/L (06/07/2025, 4:35am). cf., Na 133 mmol/L (06/07/2025, 9:48am). cf., Na 133 mmol/L (06/08/2025, 3:37am). Etiology of acute hyponatremia is probably due to a combination of (a) acute dehydration in the NPO state due to mechanical intubation/ventilation on Assist Control with TV 400 mL, RR 19 breaths/minute, PEEP 5 cm H2O, and FIO2 = 0.3 (06/06/2025, 10:25am); and/or (b) SIADH in the setting of acute RV systolic CHF, which in turn, is due to acute cardiogenic shock, which in turn, is due to acute inferior wall STEMI. Sodium returned to normal late in hospital stay. (6) Hypocalcemia: Patient's calcium level remains low, as shown below: cf., Ca 9.1, albumin 4.0, Ca corrected 9.1 (06/05/2025, 12:27pm). cf., Ca 6.8, albumin 2.8, Ca corrected 7.8 (06/06/2025, 5:11am). cf., Ca 7.1, albumin 2.7, Ca corrected 8.1 (06/07/2025, 4:35am). cf., Ca 7.2, albumin 2.5, Ca corrected 8.4 (06/08/2025, 3:37am). Also improved. (7) Hypomagnesemia: Patient's magnesium level has returned to normal, as shown below: cf., Mg 2.2 (06/05/2025, 6:05am). cf., Mg 2.1 (06/06/2025, 12:27pm). cf., Mg 1.5 (06/07/2025, 4:35am). cf., Mg 2.3 (, 3:37am). Etiology of acute hypomagnesemia was probably due to acute dehydration in the NPO state due to mechanical intubation/ventilation. Hence, patient received magnesium sulfate 1g IV x 3 doses (06/07/2025, 8:24am, 10:06am, 12:10pm, 2:16pm). Subsequently, acute hypomagnesemia RESOLVED, as shown above. (8) Acute hypokalemia: Patient's potassium level has returned to normal, as shown below: cf., K 4.5 (06/05/2025, 12:27pm). cf., K 3.4 (06/06/2025, 5:11am). cf., K 3.8 (06/07/2025, 4:35am). cf., K 3.5 (06/07/2025, 9:48am). cf., K 3.7 (06/08/2025, 3:37am). Etiology of acute hypokalemia was probably due to acute dehydration in the NPO state due to mechanical intubation/ventilation. Hence, patient received potassium chloride 40meq PO x 1 dose (06/06/2025, 9:07am). Hence, patient received potassium chloride 20meq IV x 1 dose (06/07/2025, 8:44am). Subsequently, acute hypokalemia RESOLVED, as shown above, (9) Symptomatic bradycardia: To address #8, patient was continued on satellite project site monitor in ICU bed #E109-1 on admission date 06/05/2025. Continue transvenous PPM in situ as needed, as recommended by [facility] Interventional CARDS Dr. Amari Valles, on 06/05/2025, and who also recommends "that as we titrate down her vasopressor support we keep the transvenous pacemaker in place as she may become profoundly bradycardic without dopamine and norepinephrine. Then, we could start to titrate down the pacer to see if she can sustain a sinus rhythm long-term. She has had more than 1 myocardial infarction in the RCA distribution and I am concerned that she will eventually require permanent pacemaker particularly for us to optimize her medical therapy." Patient with moments of bradycardia, but has since been asymptomatic. (10) Infection: Etiology of infection remains unclear in this afebrile patient with negative urine culture (06/05/2025, 7:30pm). In addition, portable CXR #1 (06/05/2025, 1:11pm) and portable CXR #2 (06/07/2025, 6:00am) reveal no infiltrate/consolidation to suggest acute bacterial pneumonia. In addition, blood culture #1 (06/07/2025, 10:13am) and blood culture #2 (06/07/2025, 10:51am) reveal no bacteremia. While WBC has declined to normal, as shown below, patient's peripheral blood smear reveals the presence of toxic vacuoles (06/07/2025, 4:38am) and now toxic vacuoles with Dohle bodies (06/08/2025, 3:37am): WBC 5.74, N46 L39 M11 E3 B1, (06/05/2025, 12:27pm). WBC 20.37, N83 L13 M 2 E1, (06/05/2025, 4:25pm). WBC 11.97, N72 L15 M13, (06/06/2025, 5:11am). WBC 11.81, N78 L12 M10, (06/06/2025, 2:51pm). WBC 5.90, N77 L13 M 9, toxic vacuoles (06/07/2025, 4:38am). (06/07/2025, 9:48am). (06/07/2025, 10:51am). WBC 5.90, N89 L 3 M 6 , toxic vacuoles, Dohle bodies (06/08/2025, 3:37am). While lactic acid levels remain normal, procalcitonin levels are increasing, as shown below: Lactic acid #1 1.5 mmol/L (06/06/2025, 10:57am). Lactic acid #2 1.8 mmol/L (06/08/2025, 8:25am). Procalcitonin #1 6.61 ng/mL (06/07/2025, 10:13am). Procalcitonin #2 14.30 ng/mL (06/08/2025, 8:25am). Patient completed course of antibiotics. Admission HPI Per Admitting Provider 84 years old female with PMH of FULL CODE @ home, overweight with BMI 29.4 (height 157.5 cm, weight 72.9 kg), osteoarthritis/osteoporosis s/p right total hip arthroplasty (12/23/2018, 10:31am, [facility] Orthopedic Surgeon Dr. Amari Robertson), HTN, and CAD s/p 2 vessel CABG (HANKS to LAD; SVG to LAD)(1995, , Cardio-Thoracic Surgeon Dr. Da Cortez, s/p inferior wall STEMI (07/30/2022, 1:18am, cardiac catheterization, [facility] Interventional CARDS Dr. Amari Valles): (A) HANKS to LAD with findings of small caliber and atretic with distal anastomosis on the LAD; (B) SVG to diagonal/ramus with findings of large caliber and widely patent graft with distal anastomosis on the diagonal/ramus; (C) Mid-RCA with 100% acute thrombotic stenosis, followed by PCI to RCA with successful deployment of 3.0 x 12 mm Ezel drug-eluting stent in mid-RCA lesion with 0% post residual stenosis post PCI, JOAN-3 flow post PCI, no evidence of dissection or perforation post PCI, mild residual stenosis in the mid to proximal RCA just prior to the stent, distally the vessel is seen to bifurcate into a large PDA and large branching postero-lateral with no more than mild disease distally. (D) This cardiac catheterization was complicated by: (i) cardiogenic shock requiring phenylephrine bolus and dopamine drip, (ii) intermittent transvenous pacing, (iii) intra-aortic balloon pump counterpulsation, (iv) acute hypoxic respiratory failure requiring intubation (07/30/2022), extubation (08/01/2022), (v) aspiration pneumonia of LLL with development of LLL effusion (as noted on 07/31/2022, 8:59am portable CXR and on 08/01/2022, 7:00am portable CXR taken post-cardiac catheterization, and NOT seen on 07/30/2022, 4:29am portable CXR taken pre-cardiac catheterization). Patient was subsequently discharged to [facility] ([place], [place]) on 08/06/2025 for acute rehab, followed by discharge back to her home on 08/12/2022. Patient was subsequently admitted to [facility] on 06/03/2025 with complaints of feeling woozy, lightheaded, and profuse diaphoresis for 30 minutes at home at rest while watching TV in her living room, followed by left inframammary pain for 30 minutes at home at rest while watching TV in her living room on 06/03/2025, followed by patient taking ASA 81mg PO daily x 1 dose at her home on 06/03/2025, prior to coming to [facility] ER. Patient was subsequently admitted to the inpatient hospitalist service @ [facility] on 06/03/2025 with the following diagnoses: (1) Non-ST elevation GA (NSTEMI): cf., Troponin-I #1 56.7 pg/mL (06/03/2025, 7:17pm). cf., Troponin-I #2 115.9 pg/mL (06/03/2025, 9:09pm). cf., Troponin-I #3 199.6 pg/mL (06/03/2025, 11:53pm). cf., Troponin-I #4 433.7 pg/mL (06/04/2025, 5:26am). cf., Troponin-I #5 357.2 pg/mL (06/04/2025, 11:13am). cf., Troponin-I old 21.1 pg/mL (07/30/2022, 1:12am)(cardiac catheterization on 07/30/2022, 1:18am, [facility] Interventional CARDS Dr. Amari Valles). cf., Troponin-I old 982.3 pg/mL (08/01/2022, 1:07pm)(post-cardiac catheterization). cf., Troponin-I old 787.5 pg/mL (08/01/2022, 5:02pm)(post-cardiac catheterization. Of note, patient did NOT have an acute NSTEMI during this current hospitalization (06/03/2025 - 06/05/2025) given the absence of wall motion abnormalities (cf., 06/04/2025, 6:16am TTE, CARDS Dr. Jakub Cruz). Of note, patient had no arrhythmias noted on telemetry while in [facility] from admission date 06/03/2025 through discharge date 06/05/2025. Of note, patient did not require cardiac catheterization, as per CARDS Dr. Jakub Cruz on 06/04/2025. Of note, patient had an: Acute type II NSTEMI, which in turn, was due to demand ischemia, which in turn, was due to: (A) progressive worsening in patient's chronic LV diastolic CHF from 11/25/2018 dobutamine stress ECHO (which demonstrated grade I LV diastolic dysfunction, as per CARDS Dr. Nitish Ryan) to 06/04/2025, 6:16am TTE (which demonstrated grade II LV diastolic dysfunction, as per CARDS Dr. Jakub Cruz). (B) RV systolic CHF (as noted on 06/04/2025, 6:16am TTE, CARDS Dr. Jakub Cruz). Of final note, etiology of (A) progressively worsening LV diastolic CHF and (B) now noted RV systolic CHF was attributed to OLD AGE of 84 years, and NOT to acute type I NSTEMI. (2) CAD, s/p 2 vessel CABG (HANKS to LAD; SVG to LAD)(1995, , Cardio-Thoracic Surgeon Dr. Da Cortez), s/p acute inferior wall STEMI (07/30/2022, 1:18am, [facility] Interventional CARDS Dr. Amari Valles). s/p 2 vessel CABG (HANKS to LAD; SVG to LAD)(1995, , Cardio-Thoracic Surgeon Dr. Da Cortez), followed by CARDS Dr. Nitish Ryan for 30+ years. s/p acute inferior wall STEMI (07/30/2022, 1:18am, [facility] Interventional CARDS Dr. Amari Valles, s/p successful deployment of 3.0 x 12 mm Ezel drug-eluting stent in mid-RCA lesion with 0% post residual stenosis post PCI). Patient received secondary prophylaxis against CAD utilizing ASA 81mg PO daily, zetia 10mg PO qam, and rosuvastatin 40mg PO daily while in [facility] from admission date 06/03/2025 through discharge date 06/05/2025. Patient will continue this same regimen on hospital discharge back to her home on 06/05/2025. (3) Hypertension: Well-controlled with BP 146/76 (06/04/2025, 6:55pm) and discharge BP 129/67 (06/05/2025, 8:01am) on no anti-HTN agents while in [facility] from admission date 06/03/2025 through discharge date 06/05/2025. Patient was advised NOT to resume her home-scheduled metoprolol succinate 12.5mg PO qhs on hospital discharge back to her home on 06/05/2025, due to persistent bradycardia with HR 52 bpm (06/04/2025, 11:47am), bhargav HR 48 bpm (06/04/2025, 10:15pm), and discharge HR 56 bpm (06/05/2025, 8:01am), given the potential for her home- scheduled metoprolol succinate 12.5mg PO qhs to cause further bradycardia, as per CARDS Dr. Bran Field. (4) Chronic diastolic CHF (congestive heart failure): Past medical history of chronic diastolic CHF with preserved LVEF and grade I LV diastolic dysfunction as per patient's CARDS Dr. Nitish Ryan, who wrote on 12/30/2019, 2:32pm CARDS Clinic visit: "Dobutamine stress echocardiogram November 25, 2018 negative for evidence of myocardial ischemia by both ECG and echo criteria at 102% maximum predicted heart rate. Resting echocardiogram with normal biventricular systolic function, grade 1 LV diastolic dysfunction, normal chamber dimensions, trace aortic regurgitation, mild mitral regurgitation, [id number] tricuspid regurgitation, and mildly elevated estimated right ventricular systolic pressure. The test was ordered as preoperative cardiovascular evaluation before undergoing a right total hip arthroplasty (12/23/2018, 8:50am, [facility] Orthopedic Surgeon Dr. Amari Robertson)." cf., TTE (06/04/2025, 6:16am): 1. LVEF 60-65%. No regional wall motion abnormalities. No LVH. Grade II LV diastolic dysfunction. 2. Normal RV size with mildly reduced systolic function. 3. Severe LA dilation. 4. MIld-moderate MR. 5. Top normal estimated RVSP. 6. No prior study for comparison. (as per CARDS Dr. Jakub Cruz). Hence, I surmised that patient's chronic LV diastolic CHF has progressively worsened from 11/25/2018 dobutamine stress ECHO to 06/04/2025, 6:16am TTE. In addition, patient appears to have developed RV systolic CHF (as noted on 06/04/2025, 6:16am TTE, CARDS Dr. Jakub Cruz). Etiology of progre ssively worsening LV diastolic CHF and now noted RV systolic CHF is attributed to OLD AGE of 84 years, and NOT to any acute (N)STEMI. In addition, patient had no complaints of paroxysmal nocturnal dyspnea, orthopnea, platypnea, or weight gain, to suggest an acute exacerbation of chronic LV diastolic CHF or acute RV systolic CHF while in [facility] from admission date 06/03/2025 through discharge date 06/05/2025. Hence, patient did not / does not require diuresis with lasix or torsemide while in [facility] from admission date 06/03/2025 through discharge date 06/05/2025. Instead, patient received a heart healthy diet, daily weights, and strict I/O while in [facility] from admission date 06/03/2025 through discharge date 06/05/2025. Patient will continue to adhere to a heart healthy diet, daily weights, and strict I/O on hospital discharge back to her home on 06/05/2025. Patient was advised NOT to resume her home-scheduled metoprolol succinate 12.5mg PO qhs on hospital discharge back to her home on 06/05/2025, due to persistent bradycardia with HR 52 bpm (06/04/2025, 11:47am), bhargav HR 48 bpm (06/04/2025, 10:15pm), and discharge HR 56 bpm (06/05/2025, 8:01am), given the potential for her home-scheduled metoprolol succinate 12.5mg PO qhs to cause further bradycardia, as per CARDS Dr. Bran Field. Discharge Exam HEENT: Normocephalic; atraumatic. EOMI. PERRL. Smiling in the room. Lungs: Clear to auscultation and percussion. Heart: RRR, S1S2 Abd: Soft, non-tender, non-distended. Ext: No clubbing, cyanosis, or edema. 2+ pedal pulses bilaterally. Skin: No decubitus ulcer, exanthem, or enanthem. Neuro: Alert and oriented in regards to person, place, time, or situation. No myoclonus, tremors, or tics. Discharge Plan Discharge Items Patient Disposition: Home - Home Health Services Reason For Visit: ACUTE NSTEMI Discharge Diagnosis: Acute NSTEMI Condition on Discharge: Critical Activity: Resume your previous activity Non-emergency contact: Primary Care Provider Call non-emergency contact if: you have any medication questions Follow-up/Referrals: Nitish Ryan Jr, MD, FAC [Primary Care Provider] - 06/24/25 Diet: Carb Consistent or DM2 and Heart Healthy Addtl Attending Provider Instructions: Recommend followup with PCP in 1-2 weeks. Will recommend holding rosuvastatin and exetimibe in the short term due to your liver numbers. These can be resumed at your appointment. We will place you on clopidogrel.This will help prevent blockages in your heart but will increase risk of bleeding. However, the risk of a significant bleeding is lower than the benefit of preventing a heart attack with this medicine. Home Care: * Take your medications exactly as directed. Don't skip doses. * Remember that recovery after a heart attack takes time. Plan to rest for at lease 4-8 weeks while you recover. Then return to normal activity when your doctor says it's okay. * Ask your doctor about joining a heart rehabilitation program. * Tell your doctor if you are feeling depressed. Feelings of sadness are common after a heart attack, but it is important that you speak to someone if you are feeling overwhelmed by these feelings. * If you are having chest pain, call 911 for an ambulance. Do NOT drive yourself to the hospital. * Ask your family members to learn CPR. * Learn to take your own blood pressure and pulse. Keep a record of your results. Ask your doctor when you should seek emergency medical attention. He or she will tell you which blood pressure reading is dangerous. Lifestyle Changes: * Maintain a healthy weight. Get help to lose any extra pounds. * Cut back on salt. * Limit canned, dried, packaged, and fast foods. * Don't add salt to your food. * Season foods with herbs instead of salt when you cook. * Break the smoking habit. Enroll in a stop-smoking program to improve your chances of success. * Limit fatty foods. * Ask your doctor about having your lipid levels checked regularly. * Build up your activity according to your doctor's recommendation. * Ask your doctor when it's okay to resume sexual activity. * Tell your doctor about any erectile dysfunction (ED) medication you are taking. Some ED medications are not safe if you take certain heart medications. * Try to manage stress. Follow Up: It is important for you to keep your follow up appointments with your medical provider. Pending Studies at Discharge: No Stand-Alone Forms: My [facility] [place], Smoking Cessation Medications and DC Order Prescriptions: New clopidogrel 75 mg Tablet 75 mg PO QAM Qty: 30 0RF Continued nitroglycerin 0.4 mg tablet, sublingual 0.4 mg SL Q5M PRN (Reason: chest pain) Qty: 25 3RF Patient Comments: 06/05- no fill history unable to verify Rx Instructions: until response; do not exceed 3 doses per episode alendronate 70 mg tablet 70 mg PO Q7D Rx Instructions: sundays aspirin 81 mg tablet,delayed release (DR/EC) 81 mg PO QAM Patient Comments: 06/05- otc unable to verify metronidazole 0.75 % cream 1 applic topical DAILY Rx Instructions: apply to face coenzyme Q10 [CoQ-10] 100 mg Capsule 100 mg PO QAM Patient Comments: 06/05- otc unable to verify biotin 1 mg Capsule 1 mg PO QDL Patient Comments: 06/05- otc unable to verify [place]-3 350 mg-235 mg- 90 mg-597 mg Capsule,Delayed Release(Dr/Ec) 1 cap PO .EVERY 14 DAYS Patient Comments: 06/05- otc unable to verify Rx Instructions: saturday Daily Multivitamin with Iron 18-400 mg-mcg Tablet 1 tab PO WK Patient Comments: 06/05- otc unable to verify Rx Instructions: saturdays cholecalciferol (vitamin D3) [Vitamin D3] 125 mcg (5,000 unit) tablet 2,000 unit PO QDL Patient Comments: 06/05- otc unable to verify Vitamin B-12 5,000 mcg/mL drops 2,000 mcg SUBLINGUAL QDL Patient Comments: 06/05- otc unable to verify potassium chloride 10 mEq tablet extended release 10 meq PO BIDM Held ezetimibe 10 mg tablet 10 mg PO QAM Hold Instructions: Provider's Order resume after PCP followup rosuvastatin 40 mg tablet 40 mg PO QDL Hold Instructions: Provider's Order Discharge Orders: Discharge Order (Routine); Ordered 06/15/25 Ordered By: Augie Lion Admission Data Admit Date/Time: 06/05/25 13:51 Attending Provider: Augie Lion Admit Provider: Mario Taveras Primary Care Provider: Nitish Ryan Jr Other Providers: Roman Veliz; Cristiana Garcia; Love Bryan Jr; [facility] Other Interventions: Discharge Summary Assessment (RN) Last Done: 06/15/25 15:53 Hospital Stay Data Consultations 06/05/25 13:25 ED Decision to Admit Stat 06/05/25 13:51 Consult Cardiology Stat Consult [employer] Routine 06/07/25 09:55 Consult Nephrology Stat 06/10/25 11:00 Consult Gastroenterology Routine Procedures Performed Operation Date: 06/05/25 13:00 Actual Procedures s Cineradiography w/Routine Exam - Amari Valles MD, PhD p Aspiration/PCI w/WILBUR for Stemi - Amari Valles MD, PhD s Temporary Transcutaneous Pacing - Amari Valles MD, PhD Diagnostic Imagining Performed 06/05/25 13:02 CL Cath Imgs for PACS use only Stat 06/07/25 14:41 CT Abd and Pelvis [CT abd pelvis wo con] Stat 06/10/25 08:37 US liver Routine Pending Results Patient Have Any Pending Studies at Discharge: No Discharge Instructions Given to Patient (Per Discharging Provider) Recommend followup with PCP in 1-2 weeks. Will recommend holding rosuvastatin and exetimibe in the short term due to your liver numbers. These can be resumed at your appointment. We will place you on clopidogrel.This will help prevent blockages in your heart but will increase risk of bleeding. However, the risk of a significant bleeding is lower than the benefit of preventing a heart attack with this medicine. Home Care: * Take your medications exactly as directed. Don't skip doses. * Remember that recovery after a heart attack takes time. Plan to rest for at lease 4-8 weeks while you recover. Then return to normal activity when your doctor says it's okay. * Ask your doctor about joining a heart rehabilitation program. * Tell your doctor if you are feeling depressed. Feelings of sadness are common after a heart attack, but it is important that you speak to someone if you are feeling overwhelmed by these feelings. * If you are having chest pain, call 911 for an ambulance. Do NOT drive yourself to the hospital. * Ask your family members to learn CPR. * Learn to take your own blood pressure and pulse. Keep a record of your results. Ask your doctor when you should seek emergency medical attention. He or she will tell you which blood pressure reading is dangerous. Lifestyle Changes: * Maintain a healthy weight. Get help to lose any extra pounds. * Cut back on salt. * Limit canned, dried, packaged, and fast foods. * Don't add salt to your food. * Season foods with herbs instead of salt when you cook. * Break the smoking habit. Enroll in a stop-smoking program to improve your chances of success. * Limit fatty foods. * Ask your doctor about having your lipid levels checked regularly. * Build up your activity according to your doctor's recommendation. * Ask your doctor when it's okay to resume sexual activity. * Tell your doctor about any erectile dysfunction (ED) medication you are taking. Some ED medications are not safe if you take certain heart medications. * Try to manage stress. Follow Up: It is important for you to keep your follow up appointments with your medical provider. Total Time Total Time Spent Total Time Spent (In Minutes): 32 Coding Level of Care Code 19428 INP/OBS DISCH >[address] elevation myocardial infarction (STEMI) of inferior wall I21.19 Cardiogenic shock R57.0 Acute tubular necrosis N17.0 Acute hepatic failure K72.00 Acute hyponatremia E87.1 Hypocalcemia E83.51 Hypomagnesemia E83.42 Acute hypokalemia E87.6 Symptomatic bradycardia R00.1 Infection B99.9
[2025-06-15 14:43] VITALS: RESP 18
[2025-06-15 15:43] VITALS: PULSE 64; O2SAT 96
[2025-06-15 15:54] VITALS: BP 182/82
== END 2025-06-15 17:13 | disposition home health service (06) | DRG 321 ==
LOC: ED 12:11 → CC 13:30 → 1E 13:30 → SUATTDRO 13:51 → 2S 06-10 15:20
PROC: CLB.TTP (2025-06-05 13:00)
DX: R00.1 Bradycardia, unspecified; J96.01 Acute respiratory failure with hypoxia; E87.1 Hypo-osmolality and hyponatremia; I50.32 Chronic diastolic (congestive) heart failure; K76.1 Chronic passive congestion of liver; I31.39 Other pericardial effusion (noninflammatory); I44.2 Atrioventricular block, complete; M81.0 Age-related osteoporosis without current pathological fracture; E78.5 Hyperlipidemia, unspecified; E87.6 Hypokalemia; I11.0 Hypertensive heart disease with heart failure; Z68.29 Body mass index [BMI] 29.0-29.9, adult; Z95.1 Presence of aortocoronary bypass graft; K72.00 Acute and subacute hepatic failure without coma; I25.2 Old myocardial infarction; I25.10 Atherosclerotic heart disease of native coronary artery without angina pectoris; N17.0 Acute kidney failure with tubular necrosis; E83.51 Hypocalcemia; R57.0 Cardiogenic shock; I21.11 ST elevation (STEMI) myocardial infarction involving right coronary artery; Z95.5 Presence of coronary angioplasty implant and graft; E66.3 Overweight; I49.01 Ventricular fibrillation; Z79.82 Long term (current) use of aspirin; R74.01 Elevation of levels of liver transaminase levels